=== PATIENT | male | born 1940 | race Caucasian/White ===

== ENCOUNTER 2020-09-28 08:47 | Inpatient (IN) | payer MEDICARE ==
[~2020-09-28] VITALS: Ht 188 cm; Wt 92.0 kg
[2020-09-28] MEDS ORDERED: ALPRAZolam 0.25 MG (XANAX) TAB PO PRN (09:45)
[2020-09-28] MEDS ORDERED: ONDANSETRON 4 MG (ZOFRAN) ORAL DISSOLVE TAB PO PRN (09:45)
[2020-09-28] MEDS ORDERED: LOPERAMIDE 2 MG (IMODIUM) TABLET PO PRN (09:45)
[2020-09-28] MEDS ORDERED: guaiFENesin/CODEINE (ROBITUSSIN AC) 10ML UDC PO PRN (09:45)
[2020-09-28] MEDS ORDERED: LACTULOSE SYRUP 10GM/15ML (ENULOSE) 30ML UDC PO PRN (09:45)
[2020-09-28] MEDS ORDERED: FLEET ENEMA ADULT 1 EA BTL PR PRN (09:45)
[2020-09-28] MEDS ORDERED: ACETAMINOPHEN 500 MG TAB (TYLENOL) PO PRN (09:45)
[2020-09-28] MEDS ORDERED: BISACODYL 10 MG SUPP (DULCOLAX) PR PRN (09:45)
[2020-09-28] MEDS ORDERED: MELATONIN 3 MG TABLET PO PRN (09:45)
[2020-09-28] MEDS ORDERED: DOCUSATE SODIUM 100 MG (COLACE) CAP PO PRN (09:45)
[2020-09-28] MEDS ORDERED: diphenhydrAMINE 25 MG TAB (BENADRYL) PO PRN (09:45)
[2020-09-28] MEDS ORDERED: CALCIUM CARBONATE 500 MG (TUMS) TAB.CHEW PO PRN (09:45)
--- NOTE | 2020-09-28 11:25 | NUR ---
SHELLEY ARRIETA admitted to room 222-1, with an admitting diagnosis of CRITICAL ILLNESS MYOPATHY, on 09/28/20 from [facility] via EMS TRANSPORT, accompanied by EMS STAFF.SHELLEY ARRIETA introduced to surroundings, call light, bed controls, phone, TV, temperature control, lights, meal times, smoking policy, visitor policy, side rail policy, bathrooms and showers. Patient Rights given to patient in the handbook.SHELLEY ARRIETA verbalizes understanding that [facility] is not responsible for the loss or damage to any personal effects or valuables that are kept in the patients posession during their hospitalization. The following Patient Care Plans were discussed with the PATIENT: Discharge Planning, FALLS,AND IMPAIRED MOBILITY. SHELLEY ARRIETA verbalizes understanding of Interdisciplinary Patient Education. Patient and/or family were informed about the Rapid Response Team and its purpose. Patient received Patient Rights Booklet, which includes Privacy Act Statement and Data Collection Information Summary.
[2020-09-28] MEDS ORDERED: ALB0.5V INH (12:12)
[2020-09-28] MEDS ORDERED: ALPR0.25 PO (12:12)
[2020-09-28] MEDS ORDERED: DEXT50DI2 IV (12:12)
[2020-09-28] MEDS ORDERED: SALI473M2 MM (12:12)
[2020-09-28] MEDS ORDERED: IPRA3AMP31 IH ×2 (12:12)
[2020-09-28] MEDS ORDERED: INSU100V39 SQ (12:12)
[2020-09-28] MEDS ORDERED: FLUT1AER IH (12:12)
[2020-09-28] MEDS ORDERED: PANT40TA2 PO (12:12)
[2020-09-28] MEDS ORDERED: UBID400C6 PO (12:12)
[2020-09-28] MEDS ORDERED: ACET-2650 PO (12:12)
[2020-09-28] MEDS ORDERED: WRF1T PO (12:12)
[2020-09-28] MEDS ORDERED: ONDA2VIA2 IV (12:12)
[2020-09-28] MEDS ORDERED: METH40VI2 IV (12:12)
[2020-09-28] MEDS ORDERED: FOLIC ACID PO (12:12)
[2020-09-28] MEDS ORDERED: SILD20TA PO (12:12)
[2020-09-28] MEDS ORDERED: ACET600C PO (12:12)
[2020-09-28] MEDS ORDERED: FURO10VI IV (12:12)
[2020-09-28] MEDS ORDERED: NYST1000 PO (12:12)
[2020-09-28] MEDS ORDERED: MULT-166 PO (12:12)
[2020-09-28] MEDS ORDERED: AMIO200T6 PO (12:12)
[2020-09-28] MEDS ORDERED: FLUT9.9S NS (12:12)
[2020-09-28] MEDS ORDERED: INSU100V6 SQ (12:12)
[2020-09-28 12:34] VITALS: BP 124/61
--- NOTE | 2020-09-28 13:12 | Occupational Therapy Eval ---
ALEXUS PACHECO OT 09/28/20 1312: OT Evaluation-General/PLF Medical Diagnosis Admission Date Sep 28, 2020 at 11:25 Medical Diagnosis: critical illness myopathy Onset Date: Aug 09, 2020 Therapy Diagnosis Therapy Diagnosis: weakness, decreased ADL status, debility Precautions Precautions/Isolations: Fall Prevention, Standard Precautions, Pressure Ulcer Referral Physician: Ana Mancuso Reason: Evaluation/Treatment Medical History Pertinent Medical History: Atrial Fib, DM, GERD, PVD Additional Medical History CKD II, hypoxia Current History Pt SOB, generalized weakness, occasional dizziness for ~2-3 weeks, transferred to [facility] in [place] on 08/20. 08/23 intubated, self extubated, 08/24 reintubated, 08/26 weaned from vent. 09/28/2020 Transferred [facility] for skilled therapies and continued medication management Reviewed History: Yes Social History Home: Multilevel Current Living Status: Alone Entry Into Home: Stairs With Railing Steps Into Home: 6 ADL-Prior Level of Function SCALE: Activities may be completed with or without assistive devices. 8-Azzimsafdx-qxwbrll completes the activity by him/herself with no assistance from a helper. 5-Set-up or Clean-up Assistance-helper sets up or cleans up; patient completes activity. [place] assists only prior to or following the activity. 4-Supervision or Touching Assistance-helper provides verbal cues and/or touching/steadying and/or contact guard assistance as patient completes activity. Assistance may be provided throughout the activity or intermittently. 3-Partial/Moderate Assistance-helper does LESS THAN HALF the effort. [place] lifts, holds or supports trunk or limbs, but provides less than half the effort. 2-Substantial/Maximal Assistance-helper does MORE THAN HALF the effort. [place] lifts or holds trunk or limbs and provides more than half the effort. 5-Teartkqow-lwxgnt does ALL the effort. Patient does none of the effort to complete the activity. Or, the assistance of 2 or more helpers is required for the patient to complete the activity. If activity was not attempted, code reason: 7-Patient Refused. 9-Not Applicable-not attempted and the patient did not perform the activity before the current illness, exacerbation or injury. 10-Not Attempted due to Environmental Limitations-(lack of equipment, weather restraints, etc.). 88-Not Attempted due to Medical Conditions or Safety Concerns. ADL PLOF Comments Pt indicates he lives in a 2 story house, but everything he needs to access is located on the 1st floor, including kitchen, bathroom, bedroom. Pt independent with all ADLS and functional mobility at [facility], no AD/AE. Pt able to manage his own finances, housework, laundry, meal prep, and grocery shopping. Pt's daughter and grandson live in [place] and he plans to go stay with his daughter at discharge so he can have assistance if needed. Self Care: Independent Functional Cognition: Independent DME/Equipment: Grab Bars, Tub/Shower Drive Self: Yes OT Current Status Subjective Pt laying in bed, agreeable to OT evaluation and tx. Pt denies pain. Mental Status/Objective Patient Orientation: Person, Place, Time, Situation Attachments: Oxygen (5L) Current Glasses/Contacts: Yes Hearing Aids: No Dentures/Partials: Yes Hand Dominance: Right Upper Extremity ROM WFL Upper Extremity Coordination WFL Upper Extremity Sensation WFL, pt denies tingling/numbness Upper Extremity Strength grossly 3/5 ADL-Treatment Eating (QC): 6 (Pt indicates independent with feeding. No difficulty with lunch, able to cut his food, use utensils, and bring food/drink to mouth.) Oral Hygiene (QC): 5 (Based on clinical judgement pt would require set up assistance with task) Shower/Bathe Self (QC): 1 (Based on clicial judgement, pt would be dependent with task due to assist of 2 person) Upper Body Dressing (QC): 7 Lower Body Dressing (QC): 1 (Based on clician judgement, pt would require total assist with task due to assist of 2 person) On/Off Footwear (QC): 1 (Total assist to don/doff footwear) Toileting Hygiene (QC): 1 (Pt able to roll side to side in bed with min A, OT performed hygiene and changed brief) Other Treatments [id number] OT evaluation: OT educated pt on purpose and benefits of OT, he verbalized understanding. Pt provided information about PLOF and home set up, and participated in UE screen. OT educated pt on rehab expectations [id number] OT/PT cotreat: OT/PT cotreat due to skill of 2 clinicians required which a rehabilitation tech could not perform due to pt's limitations in strength, endurance, and due to pt's poor functional mobility. OT focused on UE placement, cues for sequencing and safety, and assistance with transfers, while PT focused on LE placement, gross overall movements and bed mobility. Pt transferred supine to sit EOB, assistance with legs and trunk. Pt able to sit EOB using UEs for support x10 mins, pt indicates he is unable to lift his arms off of the bed and into the air at this time. Pt transferred supine, assistance with LEs and trunk. Post tx, pt laying in bed, call light in reach and all needs met. [id number] OT/PT cotreat due to skill of 2 clinicians required which a rehabilitation tech could not perform due to pt's limitation in functional mobility and strength. OT focused on UE Placement, ADLS, cues for sequencing and safety while PT focused on LE placement, gross overall movements, and bed mobility. Pt transferred supine to sit EOB, assist with LEs and trunk. Pt sat EOB, then attempted to stand with max A x2, pt able to clear buttocks off of bed but unable to fully stand. Pt returned to sitting EOB. Sit to stand lift attempted with pt, but pt indicates difficulty breathing and tightness in chest. Pt returned to bed and nursing staff informed to use xu lift for transfers. Pt rolled side to side for xu sling placement, min A with rolls. Pt lifted off of the bed with the xu, but xu indicated low battery due to not being plugged in, pt returned to bed. Pt rolled side to side to remove xu sling and to change soiled brief. OT dependently donned TEDhose and gripper socks. Post tx, pt laying in bed sidelying towards R side, call light in reach and all needs met. Education OT Patient Education: Correct positioning, Energy conservation, Modified ADL techniques, Progress toward Goal/Update tx plan, Purpose of tx/functional activities, Rehab process, Transfer techniques Teaching Recipient: Patient Teaching Methods: Discussion Response to Teaching: Verbalize Understanding OT Short Term Goals Short Term Goals Time Frame: Oct 10, 2020 Toileting hygiene: 2 Shower/bathe self: 2 Lower body dressin Putting on/taking off footwear: 2 OT Halfway Goals Halfway Goals Time Frame: Oct 21, 2020 Eating (QC): 6 Oral Hygiene (QC): 6 Toileting Hygiene (QC): 4 Shower/Bathe Self (QC): 4 Upper Body Dressing (QC): 5 Lower Body Dressing (QC): 4 On/Off Footwear (QC): 4 1=Demonstrate adherence to instructed precautions during ADL tasks. 2=Patient will verbalize/demonstrate understanding of assistive devices/modifications for ADL. 3=Patient will improve strength/tolerance for activity to enable patient to perform ADL's. OT Education/Plan Problem List/Assessment Assessment: Decreased Activ Tolerance, Decreased UE Strength, Dependent Transfers, Impaired Bed Mobility, Impaired Funct Balance, Impaired I ADL's, Impaired Self-Care Skills Discharge Recommendations Plan/Recommendations: Continue POC Treatment Plan/Plan of Care Treatment,Training & Education: Yes Patient would benefit from OT for education, treatment and training to promote independence in ADL's, mobility, safety and/or upper extremity function for ADL's. Plan of Care: ADL Retraining, Functional Mobility, Group Exercise/Act as Ind, UE Funct Exercise/Act Treatment Duration: Oct 21, 2020 Frequency: At least 5 of 7 days/Wk (IRF) Estimated Hrs Per Day: 1.5 hours per day Agreement: Yes Rehab Potential: Fair Time/GCodes Start Time: 11:25 ([id number]) Stop Time: 14:10 ([id number]) Billed Treatment Time [id number] OT evaluation (15'), [id number] OT/PT cotreat (15'), [id number] OT/PT cotreat (50') 5989-2752 1, EVM (15'), FA (15') 5378-4816 1, FA 3 (50') SAEID JONES DO 09/28/20 1949: ALEXUS PACHECO OT Sep 28, 2020 13:12 SAEID JONES DO Sep 28, 2020 19:49
--- NOTE | 2020-09-28 13:22 | Physical Therapy Evaluation ---
PT Evaluation-General Medical Diagnosis Admission Date Sep 28, 2020 at 11:25 Medical Diagnosis: critical illness myopathy Onset Date: Aug 09, 2020 Therapy Diagnosis Therapy Diagnosis: impaired mobility, strength, endurance Precautions Precautions/Isolations: Fall Prevention, Standard Precautions, Pressure Ulcer Referral Physician: Marissa Perez DO Reason for Referral: Evaluation/Treatment Medical History Pertinent Medical History: Atrial Fib, DM, GERD, PVD Additional Medical History CKD II, hypoxia Current History Pt SOB, generalized weakness, occasional dizziness for ~2-3 weeks, transferred to [facility] in [place] on 08/20. 08/23 intubated, self extubated, 08/24 reintubated, 08/26 weaned from vent. 09/28/2020 Transferred to [facility] from [facility] for skilled therapies and continued medication management Reviewed History: Yes Social History Home: Multilevel Current Living Status: Alone Entry Into Home: Stairs With Railing PT Steps Into Home: 6 Prior Prior Level of Function SCALE: Activities may be completed with or without assistive devices. 0-Oiivobkujo-brzpobj completes the activity by him/herself with no assistance from a helper. 5-Set-up or Clean-up Assistance-helper sets up or cleans up; patient completes activity. [place] assists only prior to or following the activity. 4-Supervision or Touching Assistance-helper provides verbal cues and/or touching/steadying and/or contact guard assistance as patient completes activity. Assistance may be provided throughout the activity or intermittently. 3-Partial/Moderate Assistance-helper does LESS THAN HALF the effort. [place] lifts, holds or supports trunk or limbs, but provides less than half the effort. 2-Substantial/Maximal Assistance-helper does MORE THAN HALF the effort. [place] lifts or holds trunk or limbs and provides more than half the effort. 0-Bnnzmtpcq-fmwmcp does ALL the effort. Patient does none of the effort to complete the activity. Or, the assistance of 2 or more helpers is required for the patient to complete the activity. If activity was not attempted, code reason: 7-Patient Refused. 9-Not Applicable-not attempted and the patient did not perform the activity before the current illness, exacerbation or injury. 10-Not Attempted due to Environmental Limitations-(lack of equipment, weather restraints, etc.). 88-Not Attempted due to Medical Conditions or Safety Concerns. Bed Mobility: 6 Transfers (B,C,W/C): 6 Gait: 6 Stairs: 6 Indoor Mobility (Ambulation): Independent Stairs: Independent PT Evaluation-Current Subjective Patient in bed pre tx, agrees to PT, has no complaints of pain at rest. Will be co-treating with OT due to poor patient mobility, strength, endurance, poor sitting and standing balance, the need to coordinate UE and LE during activity. Patient states he was using a xu for transfers at previous facility. Pt/Family Goals "to get stronger" Objective Patient Orientation: Person, Place, Situation Attachments: Oxygen ROM/Strength ROM Lower Extremities WNL Strength Lower Extremities RLE (hip flexion 3/5, knee flexion 3/5, knee extension 3/5, dorsiflexion 2/5), LLE (hip flexion 3/5, knee flexion 3/5, knee extension 3/5, dorsiflexion 2/5) Sensory Hearing: Functional Sensation Right Lower Extremit: Intact Sensation Left Lower Extremity: Intact Transfers Roll Left & Right (QC): 3 Sit to Lying (QC): 3 Lying to Sitting/Side of Bed(Q: 3 Sit to Stand (QC): 1 Chair/Dmj-af-Nzwtb Xfer(QC): 1 Toilet Transfer (QC): 1 Car Transfer (QC): 1 Patient requires min assist for rolling and mod assist for supine <-> sit. Patient is able to sit on the side of the bed and perform a couple of exercises, able to sit for about 10 min before needing to lay back down. Patient is dependent for transfers, uses a xu lift. Gait Does the Patient Walk?: No and Walking Goal IS indicated Mode of Locomotion: Wheelchair Anticipated Mode of Locomotion: Both Walk 10 feet (QC): 3 Walk 50 ft with 2 Turns(QC): 88 Walk 150 ft (QC): 88 Walking 10ft/uneven surface-QC: 88 Wheelchair Training Does the Pt Use a Wheelchair?: Yes Wheel 50 ft with 2 turns (QC): 1 Wheel 150 ft (QC): 1 Type of Wheelchair: Manual Stairs 1 Step (curb) (QC): 88 4 Steps (QC): 88 12 Steps (QC): 88 Balance Sitting Static: Fair Sitting Dynamic: Fair Standing Static: Poor Standing Dynamic: Poor Picking up an Object (QC): 88 Treatment seated exercises BLE x10 (LAQ, AP) Assessment/Needs Patient has good ankle ROM but almost has dropfoot. He has a wound on his bottom, nurse looked at it and put a cream on it and we put a brief on patient. Patient in bed post tx with nurse call, phone, tray, all needs met, laying on right side with pillow support for pressure relief on bottom. Rehab Potential: Fair PT Short Term Goals Short Term Goals Time Frame: Oct 05, 2020 Roll Left & Right: 4 Sit to lyin Lying to sitting on side of be: 3 Sit to stand: 2 Chair/vid-mh-thsna transfer: 2 PT Judicial Reporter Goals Judicial Reporter Goals PT Judicial Reporter Goals Time Frame: Oct 19, 2020 Roll Left & Right (QC): 6 Sit to Lying (QC): 6 Lying-Sitting on Side/Bed(QC): 6 Sit to Stand (QC): 3 Chair/Juk-yz-Yvhdm Xfer(QC): 3 Toilet Transfer (QC): 3 Car Transfer (QC): 1 Does the Patient Walk: Yes Walk 10 feet (QC): 3 Walk 50ft with 2 Turns (QC): 88 Walk 150 ft (QC): 88 Walking 10ft on Uneven Surface: 88 1 Step (curb) (QC): 88 4 Steps (QC): 88 12 Steps (QC): 88 Picking up an Object (QC): 88 Wheel 50 feet with 2 turns (QC: 4 Wheel 150 feet: 4 PT Plan Problem List Problem List: Activity Tolerance, Functional Strength, Safety, Balance, Gait, Transfer, Bed Mobility, ROM Treatment/Plan Treatment Plan: Continue Plan of Care Treatment Plan: Bed Mobility, Education, Functional Activity [place], Functional Strength, Group Therapy, Gait, Safety, Therapeutic Exercise, Transfers Treatment Duration: Oct 19, 2020 Frequency: At least 5 of 7 days/Wk (IRF) Estimated Hrs Per Day: 1.5 hours per day Patient and/or Family Agrees t: Yes Safety Risks/Education Patient Education: Correct Positioning, Safety Issues Teaching Recipient: Patient Teaching Methods: Demonstration, Discussion Response to Teaching: Reinforcement Needed Discharge Recommendations Plan Patient will perform bed mobility and transfer training, balance and endurance training, funcitonal strengthening, gait training, and education, to improve functional mobility and independence at home. Therapy Discharge Recommendati: Scheduled Assistance, Home & Family Time/GCodes Time In: 1140 Time Out: 1205 Total Billed Treatment Time: 25 Total Billed Treatment 1 visit EVM 10' FA 15' PT eval from 5411-9098, co-treat from 3501-3744. PT worked on bed mobility and transfers, OT assist with mobility, UE positioning and safety, ed[place] juarez. CLAYTON GARCIA PT Sep 28, 2020 13:22
--- NOTE | 2020-09-28 13:57 | NUR ---
MED REC HAS BEEN ENTERED USING THE DISCHARGE ORDERS FROM [facility]. THE DIRECTIONS ON SRAVANTHI SAY "SYN"- I CALLED [facility] FOR CLARIFICATION AND THE NURSE TOLD ME THAT ACCORDING TO THE RECORDS THERE THE FREQUENCY IS SCHEDULED FOR 0700. AFTER MEDICATIONS ARE CONTINUED I WILL SPEAK WITH THE PT AND MAKE ANY CHANGES TO THE NOTES/MED REC IF NEEDED Addendum: 10/03/20 at 1522 by CECILY MATA CPhT SPOKE WITH THE PT- HE WAS UNSURE OF HIS MEDICATIONS AND WANTED ME TO GET A MEDICATION LIST FROM DR. BROWN AT [facility]. I REQUESTED A MED LIST FROM THE PCP BUT HAVE NO RECEIVED AT THIS TIME Addendum: 10/05/20 at 1030 by CECILY MATA CPhT I SPOKE WITH SHELLEY'S DAUGHTER(ALLA) AND SHE WAS ABLE TO LIST THE MEDICATIONS THE PT TAKES. THE FOLLOWING MEDS WERE REMOVED DUE TO PT NOT TAKING PRIOR TO [place]: ACETYLCYSTEINE 600MG ALBUTEROL 2.5MG/0.5ML SOLUTION ALPRAZOLAM 0.25MG DEXTROSE SYRINGE FLONASE BREO ELLIPTA 100/25 INSULIN GLARGINE INSULIN LISPRO IPRATROPIUM/ALBUTEROL NEBULIZER SOLUTION (SCHEDULED AND PRN) SOLU-MEDROL NYSTATIN SOLUTION ONDANSETRON PANTOPRAZOLE 40MG BIOTENE SILDENAFIL 20MG COQ10 CHANGES THAT WERE MADE: FUROSEMIDE WAS SWITCHED FROM IV TO FUROSEMIDE 40MG PO AMIODARONE 200MG-I REMOVED THE NOTE ON THE MED REC OF "HOLD FOR HR LESS THEN 55" AND ACCORDING TO ALLA THE DIRECTIONS ON THE BOTTLE SHOW 1 TAB BID HOWEVER SHE IS CONCERNED THAT HE IS NOT TAKING IT PRESCRIBED. MEDICATIONS THAT HAVE BEEN ADDED TO THE MED REC: POTASSIUM ER 10MEQ ATORVASTATIN 40MG ON THE DISCHARGE ORDERS FROM [facility] IT HAD POTASSIUM LISTED BUT IT HAD "NO" WRITTEN BESIDE IT SO IT WOULD NOT BE CONTINUED. ATORVASTATIN 40MG IS NOT LISTED ANYWHERE ON THE DISCHARGE ORDERS
[2020-09-28] MEDS ORDERED: ENOXAPARIN 40 MG/0.4 ML (LOVENOX) SYR SC SCH (15:00)
--- NOTE | 2020-09-28 15:09 | PM&R Post Admission Assessment ---
PM&R HP Date of Visit: Sep 28, 2020 Time of Visit: 11:30 History of Present Illness CC: COPD myopathy HPI: This is an 80yoWM who presents to the IRF after a lengthy and convoluted hospital course which started at [facility] in [place], [place] who complains of SOB, generalized weakness, occasional dizziness for ~2-3 weeks, transferred to [facility] in [place] on 08/20. 08/23 intubated, self extubated, 08/24 reintubated, 08/26 weaned from vent. 09/28/2020 Transferred to [facility] ARU from OSH for skilled therapies and continued medication management. Patient had multiple COVID tests and thet were negative but he appears to have some sort of viral PNA with persistence of infiltrates on CXR requiring IV steroids and IV Lasix. Dr Gamble and Dr Alanis have been consulted. ECHO and CXR ordered. CXR appears to have infiltrates so will obtain sepsis w/u. Patient unable to answer my questions due to controlled dyspnea without distress and fatigue. Past Npdxcda-Hbziah-Enyhlj Hx Past Med/Social Hx: Reviewed Nursing Past Med/Soc Hx, Reviewed and Corrections made Patient Social History Marrital Status: Employed/Student: retired Smoking Status: Unknown if Ever Smoked Recent Foreign Travel: No Contact w/other who traveled: No Recent Infectious Disease Expo: No Past Medical History Respiratory: COPD, Pneumonia Cardiac: Atrial Fibrillation, Chronic Edema/Swelling Gastrointestinal: Gastroesophageal Reflux Endocrine: Diabetes, Insulin dep Prior Level of Function Bed Mobility: 6 Transfers: 6 Gait: 6 Stairs: 6 Indoor Mobility (Ambulation): Independent Stairs: Independent Self Care: Independent Functional Cognition: Independent Drive Self: Yes Current Level of Fuctioning Roll Left to Right: 3 Sit to Lyin Lying to Sitting/Side of Bed: 3 Sit to Stand: 1 Chair/Heu-qj-Trdmt Xfer: 1 Car Transfer: 1 Does the Patient Walk: No and Walking Goal IS indicated Mode of Locomotion: Wheelchair Anticipated Mode of Locomotion: Both Walk 10 feet: 3 Walk 50 ft with 2 Turns: 88 Walk 150 ft: 88 Walking 10ft on uneven surface: 88 Does the Pt Use a Wheelchair: Yes Wheel 50 ft with 2 turns: 1 Wheel 150 ft: 1 Type of Wheelchair: Manual 1 Step (curb): 88 4 Steps: 88 12 Steps: 88 Picking up an Object: 88 Eatin (Pt indicates independent with feeding. No difficulty with lunch, able to cut his food, use utensils, and bring food/drink to mouth.) Oral Hygiene: 5 (Based on clinical judgement pt would require set up assistance with task) Shower/Bathe Self: 1 (Based on clicial judgement, pt would be dependent with task due to assist of 2 person) Upper Body Dressin Lower Body Dressin (Based on clician judgement, pt would require total assist with task due to assist of 2 person) On/Off Footwear: 1 (Total assist to don/doff footwear) Toileting Hygiene: 1 (Pt able to roll side to side in bed with min A, OT performed hygiene and changed brief) PM&R Allergy/Meds/Data Review Allergies Coded Allergies: No Allergy Information Available (Unverified , 09/28/20) Home Medications Scheduled Acetylcysteine (Nac), 1,200 MG PO BID, (Reported) Alprazolam (Xanax), 0.25 MG PO HS, (Reported) Amiodarone HCl (Amiodarone HCl), 200 MG PO BID, (Reported) Fluticasone Propionate (Flonase Allergy Relief), 1 SPRAY NS BID, (Reported) Fluticasone/Vilanterol (Breo Ellipta 100-25 Mcg INH), 1 EACH IH DAILY, (Reported) Furosemide (Furosemide), 40 MG IV BID, (Reported) Insulin Glargine,Hum.rec.anlog (Lantus), 15 UNIT SQ 0700, (Reported) Insulin Lispro (Insulin Lispro), UNIT SQ ACHS, (Reported) Ipratropium/Albuterol Sulfate (Iprat-Albut 0.5-3(2.5) mg/3 ml), 3 ML IH 0700,1100,1500,1900, (Reported) Methylprednisolone Sod Succ/Pf (Solu-Medrol 40 mg Vial), 40 MG IV DAILY, (Reported) Multivitamin with Minerals (Multivitamins with Minerals), 1 EACH PO DAILY, (Reported) Nystatin (Nystatin), 5 ML PO QID, (Reported) Pantoprazole Sodium (Protonix), 40 MG PO DAILY, (Reported) Saliva Substitution Combo No.9 (Biotene), 10 ML MM TID, (Reported) Sildenafil Citrate (Revatio), 20 MG PO TID, (Reported) Ubidecarenone (Co Q-10), 400 MG PO DAILY, (Reported) Warfarin Sodium (Warfarin Sodium), 1 MG PO 1700, (Reported) [Folic Acid], 1 MG PO DAILY, (Reported) Scheduled PRN Acetaminophen (Tylenol Arthritis), 650 MG PO Q6H PRN for PAIN-MILD (1-4) OR TEMPATURE, (Reported) Albuterol Sulfate (Albuterol Sulfate), 2.5 MG INH Q4H PRN for SHORTNESS OF BREATH, (Reported) Dextrose 50 % in Water (Dextrose 50%-Water Syringe), 50 ML IV PRN PRN for GLUCOSE LESS THEN 50, (Reported) Ipratropium/Albuterol Sulfate (Iprat-Albut 0.5-3(2.5) mg/3 ml), 3 ML IH Q4H PRN for SHORTNESS OF BREATH, (Reported) Ipratropium/Albuterol Sulfate (Iprat-Albut 0.5-3(2.5) mg/3 ml), 3 ML IH Q4H PRN for SHORTNESS OF BREATH, (Reported) Ondansetron HCl (Ondansetron HCl), 4 MG IV Q4H PRN for NAUSEA/VOMITING-1ST LINE, (Reported) Current Medications Current Medications Reviewed Review of Systems Constitutional: see HPI, malaise, weakness Respiratory: dyspnea on exertion Physical Exam Physical Exam Vital Signs Vital Signs - First Documented 09/28/20 12:34 Temp 36.0 Pulse 80 Resp 18 B/P (MAP) 124/61 Pulse Ox 94 O2 Delivery Nasal Cannula O2 Flow Rate 5.00 Capillary Refill : Height, Weight, BMI Height: '" Weight: lbs. oz. kg; 26.02 BMI Method: General Appearance: No Apparent Distress, WD/WN, Chronically ill Eyes: Bilateral Eye Normal Inspection, Bilateral Eye PERRL HEENT: PERRL/EOMI, Normal ENT Inspection, Pharynx Normal Neck: Full Range of Motion, Normal Inspection, Non Tender, Supple, Carotid Bruit Respiratory: Chest Non Tender, No Accessory Muscle Use, No Respiratory Distress, Decreased Breath Sounds Cardiovascular: Regular Rate, Rhythm, No Edema, No Gallop, No JVD, No Murmur, Normal Peripheral Pulses Gastrointestinal: Normal Bowel Sounds, No Organomegaly, No Pulsatile Mass, Non Tender, Soft Back: Normal Inspection, No CVA Tenderness, No Vertebral Tenderness Extremity: Normal Capillary Refill, Normal Inspection, Normal Range of Motion, Non Tender, No Calf Tenderness, No Pedal Edema Neurologic/Psychiatric: Alert, Oriented x3, Normal Mood/Affect, 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 Norm as Tested, Abnormal Gait, Depressed Affect, Motor Weakness (severe 3/5 all extremities) Skin: Normal Color, Warm/Dry Lymphatic: No Adenopathy PM&R Medical Assessment & Plan REHAB/MEDICAL ASSESSMENT AND PLAN: 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 The comorbidities that impact the patients function and/or functional outcome by: advanced age, severe COPD, severe loss of reserve, cardiac abnormalities, severe fatigue, high risk for respiratory failure REHAB PLAN: The patient is being admitted to our comprehensive inpatient rehabilitation facility and can tolerate the intensity of service consisting of at least: 180 minutes of therapy a day, 5 out of 7 days a week Rehab treatment will consist of: PT OT will focus on regaining function with ADL's and ambulation and weaning O2 and ultimately increasing ability to return home to live independently The patient/family has a good understanding of our discharge process and will benefit from an interdisciplinary inpatient rehabilitation program. The patient has potential to make improvement and is in need of at least two of the following multidisciplinary therapies including but not limited to physical, occupational, speech, and prosthetics and orthotics. Additionally the patient will need services from respiratory, nutritional services, wound care, psychology, etc. (Customize this to each patient). Given the patients complex condition and risk of further medical complications, rehabilitation services cannot be safely or effectively provided at a lower level of care such as a jail facility. BARRIERS TO DISCHARGE: Severe COPD ESTIMATED LOS: 14 days DISPOSITION: Home RELEVANT CHANGES SINCE PREADMISSION SCREENING: I have compared the patients medical and functional status at the time of the preadmission screening and there are: no changes PROGNOSIS: Guarded REHABILITATION GOALS: 1. PT OT will focus on regaining function with ADL's and ambulation and weaning O2 and ultimately increasing ability to return home to live independently All the above goals were reviewed with the patient and he/she is in agreement. By signing this document, I acknowledge that I have personally performed a full physical examination on this patient within 24 hours of admission to this inpatient rehabilitation facility and have determined the patient to be able to tolerate the above course of treatment at an intensive level for a reasonable period of time. I will be completing a detailed individualized Plan of Care for this patient by day #4 of the patients stay based upon the Preadmission Screen, the Post-Admission Evaluation, and the therapy evaluations. 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 (4) Diabetes mellitus ICD Codes: E11.9 - Type 2 diabetes mellitus without complications (5) COPD (chronic obstructive pulmonary disease) ICD Codes: J44.9 - Chronic obstructive pulmonary disease, unspecified (6) Hypoxemia ICD Codes: R09.02 - Hypoxemia (7) Volume overload ICD Codes: E87.70 - Fluid overload, unspecified (8) Thrush ICD Codes: B37.0 - Candidal stomatitis Assessment/Plan Assessment and Plan Assess & Plan/Chief Complaint Assessment: COPD myopathy Hypoxia Abnormal CXR Thrush Coumadin treatment Respiratory failure DM GERD PHTN Plan: Check INR IRF protocol Dr Alanis and Dr Gamble consulted SAEID JONES DO Sep 28, 2020 15:09
[2020-09-28] MEDS ORDERED: ONDANSETRON 4 MG/2 ML (SDV) Z0FRAN IV PRN (15:15)
[2020-09-28] MEDS ORDERED: RT-ALBUTEROL SULF 2.5 MG/3 ML PRE-MIX VIAL INH PRN (15:15)
[2020-09-28] MEDS ORDERED: NON-FORMULARY MEDICATION 1 EA EA (Ondansetron HCl 4 MG) IV PRN (15:15)
[2020-09-28] MEDS ORDERED: NON-FORMULARY MEDICATION 1 EA EA (Acetaminophen (Tylenol Arthritis) 650 MG) PO PRN (15:15)
[2020-09-28] MEDS ORDERED: DEXTROSE 50% 50 ML (IMS) SYR IV PRN (15:15)
[2020-09-28] MEDS ORDERED: RT-ALBUTEROL/IPRATROPIUM 3 ML (DUONEB) VIAL IH PRN ×2 (15:15)
--- NOTE | 2020-09-28 15:17 | Physical Therapy Daily Note ---
PT Daily Note-Current Subjective Pt laying in bed upon arrival. Pt agrees to PT/OT co-treat. OT/PT cotreat due to skill of 2 clinicians required which a test lab technician could not perform due to pt's limitations in strength, endurance, and due to pt's poor functional mobility. Pain Numeric Pain Scale: 5-Moderate Pain Location Body Site: Chest Pain Description: Ache Comment: Chest discomfort when sitting upright. Not rated though. Mental Status Patient Orientation: Person, Place, Situation Attachments: Oxygen Pt talks quietly due to extubation. Transfers SCALE: Activities may be completed with or without assistive devices. 5-Tbizgvrqxr-vwkpsva completes the activity by him/herself with no assistance from a helper. 5-Set-up or Clean-up Assistance-helper sets up or cleans up; patient completes activity. Felton assists only prior to or following the activity. 4-Supervision or Touching Assistance-helper provides verbal cues and/or touching/steadying and/or contact guard assistance as patient completes activity. Assistance may be provided throughout the activity or intermittently. 3-Partial/Moderate Assistance-helper does LESS THAN HALF the effort. Felton lifts, holds or supports trunk or limbs, but provides less than half the effort. 2-Substantial/Maximal Assistance-helper does MORE THAN HALF the effort. Felton lifts or holds trunk or limbs and provides more than half the effort. 7-Rqecqsapy-yoeqim does ALL the effort. Patient does none of the effort to complete the activity. Or, the assistance of 2 or more helpers is required for the patient to complete the activity. If activity was not attempted, code reason: 7-Patient Refused. 9-Not Applicable-not attempted and the patient did not perform the activity before the current illness, exacerbation or injury. 10-Not Attempted due to Environmental Limitations-(lack of equipment, weather restraints, etc.). 88-Not Attempted due to Medical Conditions or Safety Concerns. Roll Left & Right (QC): 4 Sit to Lying (QC): 1 Lying to Sitting/Side of Bed(Q: 1 Sit to Stand (QC): 1 Exercises Supine Ex: Ankle pumps, Quad Set, Heel Slides Supine Reps: 15 Treatments [id number] OT/PT cotreat due to skill of 2 clinicians required which a test lab technician could not perform due to pt's limitation in functional mobility and strength. OT focused on UE Placement, ADLS, cues for sequencing and safety while PT focused on LE placement, gross overall movements, and bed mobility. Pt transferred supine to sit EOB, assist with LEs and trunk. Pt sat EOB, then attempted to stand with max A x2, pt able to clear buttocks off of bed but unable to fully stand. Pt returned to sitting EOB. Sit to stand lift attempted with pt, but pt indicates difficulty breathing and tightness in chest. Pt returned to bed and nursing staff informed to use xu lift for transfers. Pt rolled side to side for xu sling placement, min A with rolls. Pt lifted off of the bed with the xu, but xu indicated low battery due to not being plugged in, pt returned to bed. Pt rolled side to side to remove xu sling and to change soiled brief. OT dependently donned TEDhose and gripper socks. Post tx, pt laying in bed sidelying towards R side, call light in reach and all needs met. Assessment Current Status: Fair Progress Pt is very weak but demonstrates willingness to work hard to progress for home. PT Short Term Goals Short Term Goals Time Frame: Oct 05, 2020 Roll Left & Right: 4 Sit to lyin Lying to sitting on side of be: 3 Sit to stand: 2 Chair/tow-mh-nhbcn transfer: 2 PT Penitentiary Goals Penitentiary Goals PT Tip Cementer Goals Time Frame: Oct 19, 2020 Roll Left & Right (QC): 6 Sit to Lying (QC): 6 Lying-Sitting on Side/Bed(QC): 6 Sit to Stand (QC): 3 Chair/Fci-mu-Lugwu Xfer(QC): 3 Toilet Transfer (QC): 3 Car Transfer (QC): 1 Does the Patient Walk: Yes Walk 10 feet (QC): 3 Walk 50ft with 2 Turns (QC): 88 Walk 150 ft (QC): 88 Walking 10ft on Uneven Surface: 88 1 Step (curb) (QC): 88 4 Steps (QC): 88 12 Steps (QC): 88 Picking up an Object (QC): 88 Wheel 50 feet with 2 turns (QC: 4 Wheel 150 feet: 4 PT Plan Problem List Problem List: Activity Tolerance, Functional Strength, Safety, Balance, Gait, Transfer, Bed Mobility Treatment/Plan Treatment Plan: Continue Plan of Care Treatment Plan: Bed Mobility, Education, Functional Activity Aston, Functional Strength, Group Therapy, Gait, Safety, Therapeutic Exercise, Transfers Treatment Duration: Oct 19, 2020 Frequency: At least 5 of 7 days/Wk (IRF) Estimated Hrs Per Day: 1.5 hours per day Patient and/or Family Agrees t: Yes Safety Risks/Education Patient Education: Transfer Techniques, Correct Positioning, Safety Issues Teaching Recipient: Patient Teaching Methods: Discussion Response to Teaching: Verbalize Understanding Time/GCodes Time In: 1320 Time Out: 1410 Total Billed Treatment Time: 50 Total Billed Treatment 1, EX (15m), & FA x2 (35m) LIDA BENDER CUST[employer]S CONSULTANT Sep 28, 2020 15:17
[2020-09-28] MEDS ORDERED: ACETAMINOPHEN 325 MG TABLET PO PRN (15:30)
--- NOTE | 2020-09-28 15:36 | ST Cognitive Linguistic Eval ---
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 Perez Medical History Pertinent Medical History: Atrial Fib, DM, GERD, PVD Reviewed History: Yes Social History Current Living Status: Alone Speech PLF-Current Status Prior Level of Function Patient lived at home alone where he was independent for his needs. Subjective Patient was pleasant and cooperative with the cognitive assessment. Language Eval: Auditory Comprehends Simple Yes/No Ques: Functional Indent/Objects Multiple Alfonso: Functional Ident/Pics in Multiple Alfonso: Functional Follows 1-Step Commands: Functional Follows Complex Directions: Functional Follows General Conversations: Functional Language Eval: Verbal Language Completes Spontaneous Greeting: Functional Produces Auto, Serial Info: Functional Imitates Simple Words/Phrases: Functional Word Finding: Functional Requests Basic Needs: Functional States Basic Personal Info: Functional Expresses Complex Ideas: Functional Objective Cognitive Domain Attention: WNL Memory: WNL Problem Solving: Functional Executive Functions: WNL Composite Severity Rating: WNL Clock Drawing Severity Rating: WNL Objective Formal/Standardized Tests [facility] Status ([facility]) Results 28/30, within normal range of function Oral Motor/Speech Production Within Normal Limits Impression Patient is a pleasant 80 y/o male who was admitted to the ARU due to generalized weakness. Patient was given the SLUMS at bedside with a score of 28/30 obtained. This is within normal limits of function. Patient does not require further ST services at this time. Speech Patient Assess Expression of Ideas/Wants: Expression (4) Understanding Verbal Content: Understands (4) Brief Interview-Mental Status: Yes Repetition of Three Words: Three (3) Temporal Orientation: Year: Correct (3) Temporal Orientation: Month: Accurate within 5 days(2) Temporal Orientation: Day: Correct (1) Recall : Wear to say "Sock": Yes, no cue required (2) Recall : Color: Yes, after cueing (1) Recall : Bed: Yes, no cue required (2) Memory/Recall Ability: Current season, That he or she is in a hsp/hsp unit Speech-Plan Patient/Family Goals Patient/Family Goals: Patient will discharge to his home or to live with his daughter, depending on his status at that time. Treatment Plan Speech Therapy Treatment Plan: Discontinue ST Treatment Duration: Sep 28, 2020 Frequency: 1 time per week Estimated Hrs Per Day: .5 hour per day Rehab Potential: Fair Barriers to Learning: None identified cognitively Pt/Family Agrees to Plan: Yes Safety Risks/Education Teaching Recipient: Patient Teaching Methods: Discussion Response to Teaching: Verbalize Understanding Education Topics Provided: Safety within his room and communication of wants/needs Time Speech Therapy Time In: 15:00 Speech Therapy Time Out: 15:30 Total Billed Time: 30 Billed Treatment Time 1, GAYLENDCOMP MAXI Oleary Sep 28, 2020 15:36
--- NOTE | 2020-09-28 16:44 | Diagnostic Imaging Report ---
INDICATION: Shortness of air. TECHNIQUE: Single view chest at 4:26 PM. CORRELATION STUDY: None. FINDINGS: Scattered bilateral pulmonary infiltrates are present. They may be slightly more pronounced at the mid and lower lung holguin, left greater than right. Heart size and mediastinal structures are somewhat obscured but the heart does appear to be enlarged. A component of vascular congestion would be difficult to exclude. IMPRESSION: 1. Bilateral pulmonary infiltrates, left greater the right, do suggest multilobe pneumonia. 2. Cardiac enlargement with likely some degree of vascular prominence. Dictated by: Dictated on workstation # [id number]
[2020-09-28] MEDS ORDERED: warFARin 1 MG (COUMADIN) TAB PO SCH (17:00)
[2020-09-28] MEDS ORDERED: FUROSEMIDE 40 MG/4 ML INJ (LASIX) IV SCH (17:00)
[2020-09-28] MEDS: inSUlin ASPART (NovoLOG) 1 UNIT/0.01 ML (CHARGE PER UNIT) SC SCH ×2 (17:02→21:48)
[2020-09-28 17:33] VITALS: BP 120/57
[2020-09-28] MEDS: NYSTATIN ORAL SUSP 5 ML UDC PO SCH ×2 (18:14→21:39)
[2020-09-28] MEDS ORDERED: RT-ALBUTEROL/IPRATROPIUM 3 ML (DUONEB) VIAL IH SCH (19:00)
--- NOTE | 2020-09-28 19:11 | NUR ---
Bedside report received from ZARIA DOBBINS, assume care of pt
[2020-09-28 20:54] LABS: BASOPHILS % (AUTO) 0 % (0-10); EOSINOPHILS % (AUTO) 0 % (0-10); HEMATOCRIT 29 % (40-54); LYMPHOCYTES # (AUTO) 0.5 10^3/uL (1.0-4.0); LYMPHOCYTES % (AUTO) 2 % (12-44); MEAN CORPUSCULAR HEMOGLOBIN 30 pg (25-34); MEAN CORPUSCULAR HGB CONC 31 g/dL (32-36); MEAN CORPUSCULAR VOLUME 97 fL (80-99); MEAN PLATELET VOLUME 11.2 fL (9.0-12.2); MONOCYTES # (AUTO) 0.6 10^3/uL (0.0-1.0); MONOCYTES % (AUTO) 2 % (0-12); NEUTROPHILS # (AUTO) 21.6 10^3/uL (1.8-7.8); NEUTROPHILS % (AUTO) 94 % (42-75); PLATELET COUNT 307 10^3/uL (130-400); WHITE BLOOD COUNT 23.1 10^3/uL (4.3-11.0)
[2020-09-28] MEDS ORDERED: ACETYLCYSTEINE 1200 MG PO SCH (21:00)
[2020-09-28] MEDS ORDERED: SILDENAFIL CITRATE 20 MG PO SCH (21:00)
[2020-09-28] MEDS ORDERED: NON-FORMULARY MEDICATION 1 EA EA (Fluticasone Propionate (Flonase Allergy Relief) 1 SPRAY) NS SCH (21:00)
[2020-09-28] MEDS ORDERED: SALIVA SUBSTITUTION COMBO NO 9 MM SCH (21:00)
[2020-09-28 21:10] VITALS: BP 156/65
--- NOTE | 2020-09-28 21:10 | NUR ---
fsbs 280, NovoLog 5 units given refused Colace, miralax, & Senokot, bed linen changed as pt incontinent whole bed wet.
[2020-09-28 21:12] LABS: ANISOCYTOSIS MODERATE; BAND NEUTROPHILS 0 %; BASOPHILS % (MANUAL) 0 %; EOSINOPHILS % (MANUAL) 0 %; HYPOCHROMASIA SLIGHT; LYMPHOCYTES % (MANUAL) 3 %; MONOCYTES % (MANUAL) 1 %; NEUTROPHILS % (MANUAL) 96 %; POIKILOCYTOSIS SLIGHT; ROULEAUX SLIGHT
--- NOTE | 2020-09-28 21:22 | NUR ---
had liq brown incontinent stool, cleaned & barrier cream applied
[2020-09-28 21:29] LABS: ALBUMIN 2.6 GM/DL (3.2-4.5); BILIRUBIN,TOTAL 0.5 MG/DL (0.1-1.0); CREATININE SERUM 1.52 MG/DL (0.60-1.30); TOTAL PROTEIN 5.3 GM/DL (6.4-8.2)
--- NOTE | 2020-09-28 21:30 | NUR ---
lab called with lactic acid 2.73
--- NOTE | 2020-09-28 21:32 | NUR ---
DR JONES notifed, orders received for NS at 80ml/hr, blood culturs x2, hold Lasix, meropenem 500mg iv q 6hrs, Vancomycin pharmacy to dose & CXR in AM
[2020-09-28] MEDS: aCETylcysteine 20% (MUCOMYST) 30ML SOLN VIAL PO SCH (21:38)
[2020-09-28] MEDS: SILDENAFIL 20 MG (REVATIO) TAB NON-FORMULARY PO SCH (21:38)
[2020-09-28] MEDS: SALIVA STIMULANT MOUTH SPRAY (BIOTENE) 1.5 OZ MM SCH (21:39)
[2020-09-28] MEDS: AMIODARONE 200 MG (CORDARONE) TAB PO SCH (21:39)
[2020-09-28] MEDS: ALPRAZolam 0.25 MG (XANAX) TAB PO SCH (21:40)
[2020-09-28] MEDS: FLUTICASONE NASAL SPRAY (FLONASE) 16 GM BTL NS SCH (21:40)
--- NOTE | 2020-09-28 21:40 | NUR ---
lab notified of blood cultures
[2020-09-28] MEDS ORDERED: NS IV 1000 ML 1,000 ML ONE (21:41)
[2020-09-28] MEDS ORDERED: VANCOMYCIN INJECTION 0.1 MG in NS (IVPB) 250 ML IV SCH (21:45)
[2020-09-28] MEDS: SENNA W/DOCUSATE (SENOKOT S) TABLET PO SCH (21:50)
[2020-09-28] MEDS: polyethylene glycoL POWDER 17 GM (MIRALAX) PACK PO SCH (21:50)
[2020-09-28] MEDS: DOCUSATE SODIUM 100 MG (COLACE) CAP PO SCH (21:50)
[2020-09-28] MEDS: NS IV 1000 ML 1,000 ML IV SCH (21:51)
--- NOTE | 2020-09-28 22:10 | NUR ---
notified of no pharmacy to dose vancomycin, orders received for Vancomycin 1 gram IV now
[2020-09-28] MEDS ORDERED: WATER (STERILE) FOR INJECTION 10 ML ONE (22:16)
[2020-09-28] MEDS ORDERED: MEROPENEM 500 MG VIAL (MERREM) IV ONE (22:17)
[2020-09-28] MEDS: MEROPENEM 500 MG in WATER (STERILE) FOR INJECTION 10 ML IV SCH (22:24)
[2020-09-28] MEDS ORDERED: VANCOMYCIN 1000 MG/VIAL ONE (22:27)
[2020-09-28] MEDS ORDERED: NS (IVPB) 250 ML ONE (22:27)
[2020-09-28] MEDS ORDERED: VANCOMYCIN INJECTION 1,000 MG in NS (IVPB) 250 ML IV SCH (23:00)
--- NOTE | 2020-09-28 23:00 | NUR ---
Waiting on lab to draw blood cultures to start antibiotics
--- NOTE | 2020-09-28 23:15 | NUR ---
lab able to draw blood cultures, antibiotics started
--- NOTE | 2020-09-28 23:39 | NUR ---
lactic acid 3.37
--- NOTE | 2020-09-28 23:42 | NUR ---
lactic acid called to , orders received no changes & no repeat labs until morning
[2020-09-29 05:01] LABS: BASOPHILS % (AUTO) 0 % (0-10); EOSINOPHILS % (AUTO) 0 % (0-10); HEMATOCRIT 25 % (40-54); HEMOGLOBIN 7.5 g/dL (13.3-17.7); LYMPHOCYTES # (AUTO) 0.9 10^3/uL (1.0-4.0); LYMPHOCYTES % (AUTO) 6 % (12-44); MEAN CORPUSCULAR HEMOGLOBIN 30 pg (25-34); MEAN CORPUSCULAR HGB CONC 30 g/dL (32-36); MEAN CORPUSCULAR VOLUME 97 fL (80-99); MEAN PLATELET VOLUME 11.1 fL (9.0-12.2); MONOCYTES # (AUTO) 0.8 10^3/uL (0.0-1.0); MONOCYTES % (AUTO) 5 % (0-12); NEUTROPHILS # (AUTO) 14.1 10^3/uL (1.8-7.8); NEUTROPHILS % (AUTO) 87 % (42-75); PLATELET COUNT 236 10^3/uL (130-400); WHITE BLOOD COUNT 16.2 10^3/uL (4.3-11.0)
[2020-09-29 05:02] VITALS: BP 119/56
[2020-09-29 05:26] LABS: ALBUMIN 2.2 GM/DL (3.2-4.5); POTASSIUM 4.3 MMOL/L (3.6-5.0)
[2020-09-29 05:27] LABS: CALCIUM 7.2 MG/DL (8.5-10.1)
[2020-09-29 05:29] LABS: TOTAL PROTEIN 4.3 GM/DL (6.4-8.2)
[2020-09-29 05:30] LABS: BILIRUBIN,TOTAL 0.4 MG/DL (0.1-1.0)
[2020-09-29 05:32] LABS: CREATININE SERUM 1.21 MG/DL (0.60-1.30)
[2020-09-29] MEDS: inSUlin ASPART (NovoLOG) 1 UNIT/0.01 ML (CHARGE PER UNIT) SC SCH ×4 (06:00→21:44)
[2020-09-29] MEDS: MEROPENEM 500 MG in WATER (STERILE) FOR INJECTION 10 ML IV SCH ×3 (06:59→20:14)
[2020-09-29] MEDS ORDERED: NON-FORMULARY MEDICATION 1 EA EA (Insulin Glargine,Hum.rec.anlog (Lantus) 15 UNIT) SQ SCH (07:00)
--- NOTE | 2020-09-29 07:36 | NUR ---
came by at 0615, orders received for albumen 25grams but unable to input orders due to [facility] down
[2020-09-29 07:40] LABS: INR 1.6 (0.8-1.4); PROTHROMBIN TIME PATIENT 19.3 SEC (12.2-14.7)
[2020-09-29 07:41] LABS: ANISOCYTOSIS MODERATE; ELLIPT/OVALOCYTES SLIGHT; LYMPHOCYTES % (MANUAL) 6 %; MICROCYTOSIS SLIGHT; MONOCYTES % (MANUAL) 4 %; NEUTROPHILS % (MANUAL) 90 %
[2020-09-29] MEDS ORDERED: ALBUMIN IV NR (07:45)
--- NOTE | 2020-09-29 07:51 | NUR ---
PTD VANCOMYCIN: 92 KG, SCr 1.21, CrCl 1.21, CrCl 45.1, BMI 26.0. DOSED PER [facility] FOR A 2 GRAM BOLUS/LOADING DOSE, BUT ONLY 1 GRAM ADMINISTERED PER [facility]. MAINT DOSE 15MG/KG x 92 KG = 1380MG ~ 1500MG Q24H (ROUNDED UP DUE TO PATIENT ONLY RECEIVING HALF OF THE INTENDED 2 GRAM LOADING DOSE, AND STARTED INFUSION EARLY/12 HOURS AFTER 1 GRAM LOADING DOSE). VANCOMYCIN TROUGH DUE 10/01 @ 1000. IF TROUGH >20, HOLD DOSE & NOTIFY PHARMACY FOR ADJUSTMENTS. Addendum: 09/29/20 at 1334 by JOSE HARRIS [facility] VANCOMYCIN TROUGH DUE 10/01 @ 1200 (DOSE HAD TO BE RETIMED DUE TO LOSS OF IV ACCESS)
[2020-09-29] MEDS: aCETylcysteine 20% (MUCOMYST) 30ML SOLN VIAL PO SCH ×2 (08:06→21:47)
[2020-09-29] MEDS: FLUTICASONE NASAL SPRAY (FLONASE) 16 GM BTL NS SCH ×2 (08:08→21:44)
[2020-09-29] MEDS: AMIODARONE 200 MG (CORDARONE) TAB PO SCH ×2 (08:08→21:45)
[2020-09-29] MEDS: NYSTATIN ORAL SUSP 5 ML UDC PO SCH ×4 (08:08→21:44)
[2020-09-29] MEDS: PANTOPRAZOLE 40 MG (PROTONIX) TAB PO SCH (08:08)
[2020-09-29] MEDS: MULTIVIT W/MINERALS TAB (THERAGRAN M) PO SCH (08:08)
[2020-09-29] MEDS: methylPREDNISolone 40 MG/ML (Solu-MEDROL) VIAL IV SCH (08:08)
[2020-09-29] MEDS: FOLIC ACID 1 MG TAB PO SCH (08:08)
[2020-09-29] MEDS: SALIVA STIMULANT MOUTH SPRAY (BIOTENE) 1.5 OZ MM SCH ×3 (08:08→21:56)
[2020-09-29] MEDS: SILDENAFIL 20 MG (REVATIO) TAB NON-FORMULARY PO SCH ×3 (08:08→21:47)
[2020-09-29] MEDS ORDERED: NON-FORMULARY MEDICATION 1 EA EA (Fluticasone/Vilanterol (Breo Ellipta 100-25 Mcg INH) 1 E IH SCH (09:00)
[2020-09-29] MEDS ORDERED: UBIDECARENONE 400 MG PO SCH (09:00)
[2020-09-29] MEDS ORDERED: NON-FORMULARY MEDICATION 1 EA EA ([Folic Acid] 1 MG) PO SCH (09:00)
--- NOTE | 2020-09-29 09:15 | NUR ---
Patient working with therapy. IV began leaking and became dislodged. Physician notified. Orders obtained for PICC line. PICC nurse notified of new order and need for IV access d/t elevated lactic acid.
[2020-09-29] MEDS: DOCUSATE SODIUM 100 MG (COLACE) CAP PO SCH ×2 (09:33→20:10)
[2020-09-29] MEDS: polyethylene glycoL POWDER 17 GM (MIRALAX) PACK PO SCH ×2 (09:34→20:10)
[2020-09-29] MEDS: SENNA W/DOCUSATE (SENOKOT S) TABLET PO SCH ×2 (09:34→20:10)
[2020-09-29] MEDS: ADVAIR HFA 115/21 MCG INHALER 8 GM IH SCH ×2 (10:08→19:17)
[2020-09-29] MEDS: RT-ALBUTEROL/IPRATROPIUM 3 ML (DUONEB) VIAL IH SCH ×3 (10:08→19:08)
--- NOTE | 2020-09-29 10:11 | Occupational Ther Daily Note ---
OT Current Status-Daily Note Subjective Pt laying in bed, agreeable to OT tx. Pt indicates he is anxious when he is sitting up or transferring between surfaces, nurse notified of pt's anxiousness. Mental Status/Objective Patient Orientation: Person, Place, Time, Situation Attachments: IV, Oxygen ADL-Treatment Therapy Code Descriptions/Definitions Functional [place] Measure: 0=Not Assessed/NA 4=Minimal Assistance 1=Total Assistance 5=Supervision or Setup 2=Maximal Assistance 6=Modified [place] 3=Moderate Assistance 7=Complete IndependenceSCALE: Activities may be completed with or without assistive devices. 3-Yzalhitfyb-zhnzvff completes the activity by him/herself with no assistance from a helper. 5-Set-up or Clean-up Assistance-helper sets up or cleans up; patient completes activity. [place] assists only prior to or following the activity. 4-Supervision or Touching Assistance-helper provides verbal cues and/or touching/steadying and/or contact guard assistance as patient completes activity. Assistance may be provided throughout the activity or intermittently. 3-Partial/Moderate Assistance-helper does LESS THAN HALF the effort. [place] lifts, holds or supports trunk or limbs, but provides less than half the effort. 2-Substantial/Maximal Assistance-helper does MORE THAN HALF the effort. [place] l ifts or holds trunk or limbs and provides more than half the effort. 5-Gqfgckudp-qqnusp does ALL the effort. Patient does none of the effort to complete the activity. Or, the assistance of 2 or more helpers is required for the patient to complete the activity. If activity was not attempted, code reason: 7-Patient Refused. 9-Not Applicable-not attempted and the patient did not perform the activity before the current illness, exacerbation or injury. 10-Not Attempted due to Environmental Limitations-(lack of equipment, weather restraints, etc.). 88-Not Attempted due to Medical Conditions or Safety Concerns. Oral Hygiene (QC): 5 (set up at bed level) Shower/Bathe Self (QC): 2 (Sponge bath max A, pt able to wash arms, chest/stomach, required assistance for thoroughness. OT washed all other parts.) Upper Body Dressing (QC): 3 ([place]) Lower Body Dressing (QC): 1 (pt rolled side to side with mod A, OT changed soiled brief for pt.) On/Off Footwear: 1 Toileting Hygiene (QC): 1 (Mod A rolling side to side in bed, OT performed hygiene and changed soiled brief.) Other Treatment [id number] OT tx: Pt completed sponge bath at bed level, pt's brief soiled requiring change. Pt able to roll side to side in bed with mod A, OT dependently changed brief and performed hygiene. Per nursing instruction, barrier cream placed on wound at buttocks, and inner thighs. Pt then able to brush teeth with set up assist at bed level. [id number] OT/PT cotreat due to skill of 2 clinicians required which a director of rehabilitation and wellness could not perform in order to coordinate UE/LEs and due to pt's limitations in functional mobility, endurance, and strength. OT focused on UE placement, cues for sequencing and safety, and ADLs, while PT focused on LE placement, gross overall movements, and transfers. Pt transferred supine to sit EOB, assist with LEs and trunk. Pt required rest break at EOB prior to transferring to w/c via SPT, max A. Pt indicates he feels anxious about transfers. Once at w/c, pt's gown appeared wet and OT/PT noted pt's IV leaking. Nurse notified and took care of IV, then OT assisted pt with changing upper body clothing. In order to increase functional mobility and UE strenght, pt self-propelled w/c from room to therapy gym. Pt taken to parallel bars, required extensive rest break. Pt then attempted to stand at parallel bars, buttocks clearing the seat but unable to stand upright. Pt sat back in chair, requiring another rest break. Pt declined further standing trials due to reports of being anxious. Pt then self-propelled w/c around [facility] common area, with frequent rest breaks. Pt taken back to room and performed SPT back to bed. Post OT/PT cotreat, pt laying in bed, call light in reach and all needs met. Education OT Patient Education: Correct positioning, Energy conservation, Modified ADL techniques, Progress toward Goal/Update tx plan, Purpose of tx/functional activities, Safety issues, Transfer techniques, W/C management Teaching Recipient: Patient Teaching Methods: Discussion Response to Teaching: Verbalize Understanding OT Short Term Goals Short Term Goals Time Frame: Oct 10, 2020 Toileting hygiene: 2 Shower/bathe self: 2 Lower body dressin Putting on/taking off footwear: 2 OT Watch Parts Grinder Goals Watch Parts Grinder Goals Time Frame: Oct 21, 2020 Eating (QC): 6 Oral Hygiene (QC): 6 Toileting Hygiene (QC): 4 Shower/Bathe Self (QC): 4 Upper Body Dressing (QC): 5 Lower Body Dressing (QC): 4 On/Off Footwear (QC): 4 1=Demonstrate adherence to instructed precautions during ADL tasks. 2=Patient will verbalize/demonstrate understanding of assistive devices/modifications for ADL. 3=Patient will improve strength/tolerance for activity to enable patient to perform ADL's. OT Education/Plan Problem List/Assessment Assessment: Decreased Activ Tolerance, Decreased UE Strength, Impaired Bed Mobility, Impaired Funct Balance, Impaired I ADL's, Impaired Self-Care Skills Discharge Recommendations Plan/Recommendations: Continue POC Treatment Plan/Plan of Care Patient would benefit from OT for education, treatment and training to promote independence in ADL's, mobility, safety and/or upper extremity function for ADL's. Plan of Care: ADL Retraining, Functional Mobility, Group Exercise/Act as Ind, UE Funct Exercise/Act Treatment Duration: Oct 21, 2020 Frequency: At least 5 of 7 days/Wk (IRF) Estimated Hrs Per Day: 1.5 hours per day Agreement: Yes Rehab Potential: Fair Time/GCodes Start Time: 08:30 Stop Time: 10:00 Total Time Billed (hr/min): 90 Billed Treatment Time 1, ADL 2 (30'), FA 4 (60') ALEXUS PACHECO OT Sep 29, 2020 10:11
--- NOTE | 2020-09-29 10:29 | Physical Therapy Daily Note ---
PT Daily Note-Current Subjective Patient in bed pre tx, agrees to PT, voices no complaints of pain. Will be co- treating with OT due to poor patient mobility, strength, endurance, poor sitting and standing balance, the need to coordinate UE and LE during activity. Appearance Patient in bed post tx with nurse call, phone, tray, all needs met, OT to continue to work with patient for a bit. Mental Status Patient Orientation: Person, Place, Situation Attachments: Oxygen, IV Transfers SCALE: Activities may be completed with or without assistive devices. 7-Shqnpmaigx-kpcglzv completes the activity by him/herself with no assistance from a helper. 5-Set-up or Clean-up Assistance-helper sets up or cleans up; patient completes activity. [place] assists only prior to or following the activity. 4-Supervision or Touching Assistance-helper provides verbal cues and/or touching /steadying and/or contact guard assistance as patient completes activity. Assistance may be provided throughout the activity or intermittently. 3-Partial/Moderate Assistance-helper does LESS THAN HALF the effort. [place] lifts, holds or supports trunk or limbs, but provides less than half the effort. 2-Substantial/Maximal Assistance-helper does MORE THAN HALF the effort. [place] lifts or holds trunk or limbs and provides more than half the effort. 9-Eecrruhph-lszbhi does ALL the effort. Patient does none of the effort to complete the activity. Or, the assistance of 2 or more helpers is required for the patient to complete the activity. If activity was not attempted, code reason: 7-Patient Refused. 9-Not Applicable-not attempted and the patient did not perform the activity before the current illness, exacerbation or injury. 10-Not Attempted due to Environmental Limitations-(lack of equipment, weather restraints, etc.). 88-Not Attempted due to Medical Conditions or Safety Concerns. Roll Left & Right (QC): 3 Sit to Lying (QC): 2 Lying to Sitting/Side of Bed(Q: 2 Sit to Stand (QC): 2 Chair/Xjw-fm-Mztsy Xfer(QC): 2 Max assist for supine to sit, max stand pivot transfer to , propel WC 100' to therapy gym with min assist, work in parallel bars, propel 120' back in hallway, stand pivot back to bed and then sit to supine. Wheelchair Training Does the Pt Use a Wheelchair?: Yes Wheel 50 ft with 2 turns (QC): 3 Type of Wheelchair: Manual 100', 120' Exercises attempted standing once in parallel bars, could not do it and patient didn't want to try it again Treatments bed mobility and transfers, WC mobility Assessment Current Status: Poor Progress Patient is not able to tolerate more than a few minutes of therapy at a time. He needs lengthy recovery periods for very little work with functional mobility or strengthening. Patient likely will make little to no progress with functi onal mobility if he cannot work on those tasks. PT Short Term Goals Short Term Goals Time Frame: Oct 05, 2020 Roll Left & Right: 4 Sit to lyin Lying to sitting on side of be: 3 Sit to stand: 2 Chair/mjw-ha-ofeoi transfer: 2 PT Conservation Or Heritage Architect Goals Mcc Goals PT Conservation Or Heritage Architect Goals Time Frame: Oct 19, 2020 Roll Left & Right (QC): 6 Sit to Lying (QC): 6 Lying-Sitting on Side/Bed(QC): 6 Sit to Stand (QC): 3 Chair/Nid-ho-Iljay Xfer(QC): 3 Toilet Transfer (QC): 3 Car Transfer (QC): 1 Does the Patient Walk: Yes Walk 10 feet (QC): 3 Walk 50ft with 2 Turns (QC): 88 Walk 150 ft (QC): 88 Walking 10ft on Uneven Surface: 88 1 Step (curb) (QC): 88 4 Steps (QC): 88 12 Steps (QC): 88 Picking up an Object (QC): 88 Wheel 50 feet with 2 turns (QC: 4 Wheel 150 feet: 4 PT Plan Problem List Problem List: Activity Tolerance, Functional Strength, Safety, Balance, Gait, Transfer, Bed Mobility, ROM Treatment/Plan Treatment Plan: Continue Plan of Care Treatment Plan: Bed Mobility, Education, Functional Activity [place], Functional Strength, Group Therapy, Gait, Safety, Therapeutic Exercise, Transfers Treatment Duration: Oct 19, 2020 Frequency: At least 5 of 7 days/Wk (IRF) Estimated Hrs Per Day: 1.5 hours per day Patient and/or Family Agrees t: Yes Safety Risks/Education Patient Education: Transfer Techniques, Correct Positioning, W/C Management, Safety Issues Teaching Recipient: Patient Teaching Methods: Demonstration, Discussion Response to Teaching: Reinforcement Needed Time/GCodes Time In: 0900 Time Out: 1000 Total Billed Treatment Time: 60 Total Billed Treatment 1 visit FA 60' co-treated for 60' CLAYTON GARCIA PT Sep 29, 2020 10:29
[2020-09-29] MEDS ORDERED: VANCOMYCIN 1500 MG/NS 500 ML IVPB IV SCH ×2 (11:00)
--- NOTE | 2020-09-29 11:06 | Consultation-Cardiology ---
HPI-Cardiology Cardiology Consultation: Date of Consultation 09/29/20 Time Seen by a Provider: 10:45 Date of Admission 09-28-2020 Attending Physician Marissa Jones DO Admitting Physician Laxmi,Local Physician Consulting Physician Ana Alanis MD HPI: Chief Complaint: Dyspnea H/O PAF Mr. Marks is an 80 year old male admitted to [facility] from [place]. Review of records available has been completed. He was admitted to [facility] in [place], [place] from [facility] on 08-20-2020 with pneumonia requiring intubation which was discontinued on 08-26-2020. He is currently in bed. He reports gen weakness and hoarse voice. He reports SOB, but feels it is better than yesterday. No c/o CP or palpitations. He denies seeing cardiology services in the past. He reports he has a history of a-fib and is on chronic warfarin, but denies any other cardiac history. He denies any n/v/d. Review of Systems-Cardiology Review of Systems Constitutional: As described under HPI Eyes: No vision change Ears/Nose/Throat: No epistaxis, No recent hearing loss Respiratory: As described under HPI Cardiovascular: As described under HPI Gastrointestinal: No constipation, No diarrhea, No nausea, No vomiting Genitourinary: no symptoms reported Musculoskeletal: other (gen weakness) Skin: No rash on exposed areas, No ulcerations on exposed areas Psychiatric/Neurological: No anxiety, No depression, No seizure, No syncope Hematologic: No bleeding abnormalities JPL-Uegyoe-Nvdrwt Hx Patient Social History Marrital Status: Employed/Student: retired Alcohol Use: Past History Recreational Drug Use: No Smoking Status: Unknown if Ever Smoked Type Used: Cigarettes Recent Foreign Travel: No Recent Infectious Disease Expo: No Hospitalization with Isolation: Denies Physical Abuse Screen: No Sexual Abuse: No Immunizations Up To Date Date of Pneumonia Vaccine: Jul 27, 2020 Date of Influenza Vaccine: Jul 27, 2020 Past Medical History PMH As described under Assessment. Family Medical History Family Medical History: Does not report any family h/o CAD. Allergies and Home Medications Allergies Coded Allergies: No Allergy Information Available (Unverified , 09/28/20) Home Medications Acetaminophen 650 Mg Tablet.er, 650 MG PO Q6H PRN for PAIN-MILD (1-4) OR TEMPATURE, (Reported) Acetylcysteine 600 Mg Capsule, 1,200 MG PO BID, (Reported) TAKES 2 (600MG) CAPS Albuterol Sulfate 2.5 Mg/0.5 Ml Vial.neb, 2.5 MG INH Q4H PRN for SHORTNESS OF BREATH, (Reported) Alprazolam 0.25 Mg Tablet, 0.25 MG PO HS, (Reported) Amiodarone HCl 200 Mg Tablet, 200 MG PO BID, (Reported) HOLD FOR HR LESS THAN 55 Dextrose 50 % in Water 50 Ml Syringe, 50 ML IV PRN PRN for GLUCOSE LESS THEN 50, (Reported) Fluticasone Propionate 9.9 Ml [place].susp, 1 SPRAY NS BID, (Reported) Fluticasone/Vilanterol 1 Each Blst.w.dev, 1 EACH IH DAILY, (Reported) Furosemide 10 Mg/1 Ml Vial, 40 MG IV BID, (Reported) HOLD FOR SYSTOLIC BLOOD PRESSURE LESS THAN 100 Insulin Glargine,Hum.rec.anlog 100 Unit/1 Ml Vial, 15 UNIT SQ 0700, (Reported) Insulin Lispro 100 Unit/1 Ml Vial, UNIT SQ ACHS, (Reported) USE PER SLIDING SCALE Ipratropium/Albuterol Sulfate 3 Ml Ampul.neb, 3 ML IH Q4H PRN for SHORTNESS OF BREATH, (Reported) Ipratropium/Albuterol Sulfate 3 Ml Ampul.neb, 3 ML IH 0700,1100,1500,1900, (Reported) Ipratropium/Albuterol Sulfate 3 Ml Ampul.neb, 3 ML IH Q4H PRN for SHORTNESS OF BREATH, (Reported) Methylprednisolone Sod Succ/Pf 40 Mg/1 Ml Vial, 40 MG IV DAILY, (Reported) DILUATE WITH AT LEAST 10 ML STERILE WATER OR NORMAL SALINE Multivitamin with Minerals 1 Each Tablet, 1 EACH PO DAILY, (Reported) Nystatin 100,000 Unit/1 Ml Oral.susp, 5 ML PO QID, (Reported) SWISH AND SWALLOW- USE FOR 7 DAYS Ondansetron HCl 2 Mg/1 Ml Vial, 4 MG IV Q4H PRN for NAUSEA/VOMITING-1ST LINE, (Reported) Pantoprazole Sodium 40 Mg Tablet.dr, 40 MG PO DAILY, (Reported) Saliva Substitution Combo No.9 473 Ml Mouthwash, 10 ML MM TID, (Reported) Sildenafil Citrate 20 Mg Tablet, 20 MG PO TID, (Reported) HOLD FOR SYSTOLIC PRESSUE LESS THAN 100 Ubidecarenone 400 Mg Capsule, 400 MG PO DAILY, (Reported) Warfarin Sodium 1 Mg Tablet, 1 MG PO 1700, (Reported) [Folic Acid] , 1 MG PO DAILY, (Reported) Physical Exam-Cardiology Physical Exam Vital Signs/I&O 09/30/20 05:48 Temp 36.9 Pulse 71 Resp 20 B/P (MAP) 107/53 (71) Pulse Ox 93 O2 Delivery Nasal Cannula O2 Flow Rate 5.00 09/30/20 00:00 Intake Total 960 ml Balance 960 ml Capillary Refill : Less Than 3 Seconds Constitutional: AAO x 3, well-developed, well-nourished HEENT: PERRL, hard of hearing, oral hygience is good Neck: No carotid bruit; carotid pulses are 2 + bilaterally Respiratory: No accessory muscle use, No respiratory distress; chest expansion is symmetric, chest is bilaterally symmetric, other (diminished bases bilat) Cardiovascular: regular rate-rhythm; No JVD; S1 and S2 Gastrointestinal: No tender; soft, round, audible bowel sounds Extremities: no lower extremity edema bilateral Neurologic/Psychiatric: grossly intact (moves all extremities; gen weakness) Skin: No rash on exposed areas, No ulcerations on exposed areas Data Review Labs Laboratory Tests 09/29/20 11:00: Glucometer 112H 09/29/20 15:35: Glucometer 159H 09/29/20 19:48: Glucometer 277H 09/30/20 05:20: Glucometer 157H 09/30/20 05:33: White Blood Count 13.2H, Red Blood Count 2.32L, Hemoglobin 6.8*L, Hematocrit 22L , Mean Corpuscular Volume 96, Mean Corpuscular Hemoglobin 29, Mean Corpuscular Hemoglobin Concent 31L, Red Cell Distribution Width 19.2H, Platelet Count 198, Mean Platelet Volume 11.0, Immature Granulocyte % (Auto) 2, Neutrophils (%) (Auto) 86H, Lymphocytes (%) (Auto) 6L, Monocytes (%) (Auto) 5, Eosinophils (%) (Auto) 0, Basophils (%) (Auto) 0, Neutrophils # (Auto) 11.4H, Lymphocytes # (Auto) 0.8L, Monocytes # (Auto) 0.7, Eosinophils # (Auto) 0.0, Basophils # (Auto) 0.0, Immature Granulocyte # (Auto) 0.2H, Prothrombin Time 19.9H, INR Comment 1.6H, Sodium Level 139, Potassium Level 4.3, Chloride Level 104, Carbon Dioxide Level 27, Anion Gap 8, Blood Urea Nitrogen 49H, Creatinine 0.95, Estimat Glomerular Filtration Rate > 60, BUN/Creatinine Ratio 52, Glucose Level 132H, Calcium Level 7.2L, Corrected Calcium 8.6, Total Bilirubin 0.4, Aspartate Amino Transf (AST/SGOT) 26, Alanine Aminotransferase (ALT/SGPT) 65H, Alkaline Phos phatase 79, Total Protein 4.1L, Albumin 2.2L, Procalcitonin 0.11H Microbiology 09/28/20 Blood Culture - Preliminary, Resulted No growth Radiology NAME: SHELLEY MARKS [facility] REC#: [id number] PT STATUS: ADM IN : 1940 PHYSICIAN: MARISSA JONES DO ADMIT DATE: 09/28/20/IRF Signed Date of Exam:09/28/20 CHEST 1 VIEW, AP/PA ONLY INDICATION: Shortness of air. TECHNIQUE: Single view chest at 4:26 PM. CORRELATION STUDY: None. FINDINGS: Scattered bilateral pulmonary infiltrates are present. They may be slightly more pronounced at the mid and lower lung holguin, left greater than right. Heart size and mediastinal structures are somewhat obscured but the heart does appear to be enlarged. A component of vascular congestion would be difficult to exclude. IMPRESSION: 1. Bilateral pulmonary infiltrates, left greater the right, do suggest multilobe pneumonia. 2. Cardiac enlargement with likely some degree of vascular prominence. Dictated by: Dictated on workstation # [id number] Dict: 09/28/20 1634 Trans: 09/28/20 1701 [id number] Interpreted by: JOSE WITT DO Electronically signed by: JOSE WITT DO 09/28/20 1705 A/P-Cardiology Assessment/Admission Diagnosis Pneumonia with sepsis - management per pulmonary/medical services PAF OAC with warfarin Echocardiogram of Sep 28, 2020 showed LVEF 55-65%. 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 Jones Discussion and Recomendations Pneumonia with sepsis management per pulmonary/medical services H/O PAF - EKG today Chronic OAC with warfarin - subtherapeutic - monitor dose closely d/t abx tx - adjust dose as indicated Monitor lab Replace electrolytes as indicated Further recs will be based on his hospital course We would like to thank Dr. Jones for this consult Clinical Quality Measures DVT/VTE Risk/Contraindication: Risk Factor Score Per Nursin RFS Level Per Nursing on Admit: 4+=Very High VERONICA POST Sep 29, 2020 11:06
--- NOTE | 2020-09-29 11:11 | Diagnostic Imaging Report ---
INDICATION: Elevated lactic acid, shortness of breath. COMPARISON: September 28, 2020. TECHNIQUE: Single radiograph of the chest dated September 29, 2020. FINDINGS: The cardiac silhouette is enlarged, similar to the prior examination. No significant pulmonary vascular congestion. Decreased lung volumes with extensive bilateral pulmonary infiltrates, particularly peripherally. These have slightly worsened since the prior examination. No significant right pleural effusion with possible tiny left pleural effusion. Chronic-appearing right-sided rib fractures. No acute osseous abnormality. No pneumothorax. IMPRESSION: Decreased lung volumes with worsening extensive bilateral pulmonary infiltrates. Findings are concerning for multifocal pneumonia, COVID-19 should be considered. Enlargement of the cardiac silhouette without significant pulmonary vascular congestion. Dictated by: Dictated on workstation # [id number]
--- NOTE | 2020-09-29 12:13 | Pulmonary Consultation ---
History of Present Illness History of Present Illness Date Seen by Provider: Sep 29, 2020 Time Seen by Provider: 04:00 Date of Admission Allergies and Home Medications Allergies Coded Allergies: No Allergy Information Available (Unverified , 09/28/20) Home Medications Acetaminophen 650 Mg Tablet.er, 650 MG PO Q6H PRN for PAIN-MILD (1-4) OR TEMPATURE, (Reported) Acetylcysteine 600 Mg Capsule, 1,200 MG PO BID, (Reported) TAKES 2 (600MG) CAPS Albuterol Sulfate 2.5 Mg/0.5 Ml Vial.neb, 2.5 MG INH Q4H PRN for SHORTNESS OF BREATH, (Reported) Alprazolam 0.25 Mg Tablet, 0.25 MG PO HS, (Reported) Amiodarone HCl 200 Mg Tablet, 200 MG PO BID, (Reported) HOLD FOR HR LESS THAN 55 Dextrose 50 % in Water 50 Ml Syringe, 50 ML IV PRN PRN for GLUCOSE LESS THEN 50, (Reported) Fluticasone Propionate 9.9 Ml [place].susp, 1 SPRAY NS BID, (Reported) Fluticasone/Vilanterol 1 Each Blst.w.dev, 1 EACH IH DAILY, (Reported) Furosemide 10 Mg/1 Ml Vial, 40 MG IV BID, (Reported) HOLD FOR SYSTOLIC BLOOD PRESSURE LESS THAN 100 Insulin Glargine,Hum.rec.anlog 100 Unit/1 Ml Vial, 15 UNIT SQ 0700, (Reported) Insulin Lispro 100 Unit/1 Ml Vial, UNIT SQ ACHS, (Reported) USE PER SLIDING SCALE Ipratropium/Albuterol Sulfate 3 Ml Ampul.neb, 3 ML IH Q4H PRN for SHORTNESS OF BREATH, (Reported) Ipratropium/Albuterol Sulfate 3 Ml Ampul.neb, 3 ML IH 0700,1100,1500,1900, (Reported) Ipratropium/Albuterol Sulfate 3 Ml Ampul.neb, 3 ML IH Q4H PRN for SHORTNESS OF BREATH, (Reported) Methylprednisolone Sod Succ/Pf 40 Mg/1 Ml Vial, 40 MG IV DAILY, (Reported) DILUATE WITH AT LEAST 10 ML STERILE WATER OR NORMAL SALINE Multivitamin with Minerals 1 Each Tablet, 1 EACH PO DAILY, (Reported) Nystatin 100,000 Unit/1 Ml Oral.susp, 5 ML PO QID, (Reported) SWISH AND SWALLOW- USE FOR 7 DAYS Ondansetron HCl 2 Mg/1 Ml Vial, 4 MG IV Q4H PRN for NAUSEA/VOMITING-1ST LINE, (Reported) Pantoprazole Sodium 40 Mg Tablet.dr, 40 MG PO DAILY, (Reported) Saliva Substitution Combo No.9 473 Ml Mouthwash, 10 ML MM TID, (Reported) Sildenafil Citrate 20 Mg Tablet, 20 MG PO TID, (Reported) HOLD FOR SYSTOLIC PRESSUE LESS THAN 100 Ubidecarenone 400 Mg Capsule, 400 MG PO DAILY, (Reported) Warfarin Sodium 1 Mg Tablet, 1 MG PO 1700, (Reported) [Folic Acid] , 1 MG PO DAILY, (Reported) Past Tpqhmvt-Cpckld-Wpklgb Hx Past Med/Social Hx: Reviewed Nursing Past Med/Soc Hx, Reviewed and Corrections made Patient Social History Alcohol Use: Past History Alcohol Beverage of Choice: Beer, [place] Recreational Drug Use: No Smoking Status: Unknown if Ever Smoked Type Used: Cigarettes Former Smoker, Quit: Oct 29, 1979 Recent Foreign Travel: No Contact w/Someone Who Travel: No Recent Infectious Disease Expo: No Recent Hopitalizations: No Immunizations Up To Date PED Vaccines UTD: Yes Date of Pneumonia Vaccine: Jul 27, 2020 Date of Influenza Vaccine: Jul 27, 2020 Seasonal Allergies Seasonal Allergies: No Past Medical History Surgeries: No Pneumonia, Pulmonary Embolism Currently Using CPAP: No Currently Using BIPAP: No Cardiac: Yes Atrial Fibrillation, Chronic Edema/Swelling Neurological: No Renal Failure Gastrointestinal: Yes Gastroesophageal Reflux Musculoskeletal: No Endocrine: Yes Diabetes, Insulin dep Are Your Blood Sugars Over 250: Yes HEENT: No Cancer: No Psychosocial: No Integumentary: Yes Eczema Blood Disorders: No Adverse Reaction/Blood Tranf: No Sepsis Event Evaluation Height, Weight, BMI Height: '" Weight: lbs. oz. kg; 26.02 BMI Method: Exam Exam Vital Signs Date Time Temp Pulse Resp B/P (MAP) Pulse Ox O2 Delivery O2 Flow Rate FiO2 09/29/20 09:00 94 Nasal Cannula 5.00 09/29/20 05:02 36.4 68 20 119/56 (77) 92 Nasal Cannula 5.50 09/29/20 01:35 37.0 09/28/20 21:15 94 Nasal Cannula 5.00 09/28/20 21:10 36.6 79 20 156/65 (95) 94 Nasal Cannula 5.00 09/28/20 19:10 4.50 94 09/28/20 17:33 36.8 85 22 120/57 (78) 92 Nasal Cannula 5.00 09/28/20 16:32 Nasal Cannula 5.00 09/28/20 12:34 36.0 80 18 124/61 94 Nasal Cannula 5.00 I & O 09/29/20 07:00 Intake Total 1340 ml Balance 1340 ml Height & Weight Height: '" Weight: lbs. oz. kg; 26.02 BMI Method: General Appearance: No Apparent Distress, WD/WN, Chronically ill HEENT: PERRL/EOMI, Normal ENT Inspection, Pharynx Normal Neck: Full Range of Motion, Normal Inspection, Non Tender, Supple, Carotid Bruit Respiratory: Chest Non Tender, No Accessory Muscle Use, No Respiratory Distress, Decreased Breath Sounds Cardiovascular: Regular Rate, Rhythm, No Edema, No Gallop, No JVD, No Murmur, Normal Peripheral Pulses Capillary Refill: Less Than 3 Seconds Extremity: Normal Capillary Refill, Normal Inspection, Normal Range of Motion, Non Tender, No Calf Tenderness, No Pedal Edema Neurologic/Psychiatric: Alert, Oriented x3, Normal Mood/Affect, recruiting consultant II-XII Norm as Tested, Abnormal Gait, Depressed Affect, Motor Weakness (severe 3/5 all extremities) Skin: Normal Color, Warm/Dry Lymphatic: No Adenopathy Results Lab Laboratory Tests 09/28/20 20:35 09/29/20 04:50 Assessment/Plan Assessment/Plan PNA -Continue Vanco and Merrem -[place] cultures pending -Check CT of chest -CXR reviewed Metabolic lactic acidosis -IVF BRIDGETTE PÉREZ DO Sep 29, 2020 12:13
[2020-09-29] MEDS ORDERED: HOLD METFORMIN - RECEIVED CONTRAST 20 ML VIAL IV SCH (12:30)
[2020-09-29] MEDS ORDERED: NS 100 ML (IVPB) BAG IV ONE (12:30)
[2020-09-29] MEDS ORDERED: IOHEXOL 350 MG/ML 100 ML (OMNIPAQUE 350) VIAL IV ONE (12:30)
--- NOTE | 2020-09-29 12:49 | PM&R Progress Note ---
Subjective HPI/CC On Admission Date Seen by Provider: Sep 29, 2020 Time Seen by Provider: 05:10 Subjective/Events-last exam Very complex issues overnight Reviewed chest x-ray done earlier in the day and it showed bilateral infiltrates and considering he had a Covid-like illness that prompted the hospital stay 1 month ago and considering his continued hypoxia managed with Lasix and steroids at [facility] I went ahead and did the sepsis work-up which revealed elevated lactic acid but not likely due to pneumonia but likely dehydration and volume depletion since he had thrush and was not eating or drinking well Covered him with broad-spectrum antibiotics Consulted Dr. Gamble Consulted Dr. Alanis IV fluids initiated Check echocardiogram Conferred with RN Reviewed therapy notes Check meds and labs Review of Systems General: Fatigue, Malaise Pulmonary: Dyspnea Focused Exam Lactate Level 09/28/20 20:35: Lactic Acid Level 2.73*H 09/28/20 23:05: Lactic Acid Level 3.37*H 09/29/20 04:50: Lactic Acid Level 1.17 Objective Exam Vital Signs Vital Signs Date Time Temp Pulse Resp B/P (MAP) Pulse Ox O2 Delivery O2 Flow Rate FiO2 09/29/20 17:02 36.6 74 20 148/63 (91) 96 Nasal Cannula 6.00 09/28/20 19:10 94 Capillary Refill : Less Than 3 Seconds General Appearance: No Apparent Distress, WD/WN, Chronically ill HEENT: PERRL/EOMI, Normal ENT Inspection, Pharynx Normal Neck: Full Range of Motion, Normal Inspection, Non Tender, Supple, Carotid Bruit Respiratory: Chest Non Tender, No Accessory Muscle Use, No Respiratory Distress, Decreased Breath Sounds Cardiovascular: Regular Rate, Rhythm, No Edema, No Gallop, No JVD, No Murmur, Normal Peripheral Pulses Gastrointestinal: Normal Bowel Sounds, No Organomegaly, No Pulsatile Mass, Non Tender, Soft Back: Normal Inspection, No CVA Tenderness, No Vertebral Tenderness Extremity: Normal Capillary Refill, Normal Inspection, Normal Range of Motion, Non Tender, No Calf Tenderness, No Pedal Edema Neurologic/Psychiatric: Alert, Oriented x3, Normal Mood/Affect, pharmacology associate II-XII Norm as Tested, Abnormal Gait, Depressed Affect, Motor Weakness (severe 3/5 all extremities) Skin: Normal Color, Warm/Dry Lymphatic: No Adenopathy Results/Procedures Lab Laboratory Tests 12/2/20 20:35 09/29/20 04:50 Patient resulted labs reviewed. FIM Transfers Therapy Code Descriptions/Definitions Functional [place] Measure: 0=Not Assessed/NA 4=Minimal Assistance 1=Total Assistance 5=Supervision or Setup 2=Maximal Assistance 6=Modified [place] 3=Moderate Assistance 7=Complete IndependenceSCALE: Activities may be completed with or without assistive devices. 8-Hbjqvpohun-fsxvqtx completes the activity by him/herself with no assistance from a helper. 5-Set-up or Clean-up Assistance-helper sets up or cleans up; patient completes activity. [place] assists only prior to or following the activity. 4-Supervision or Touching Assistance-helper provides verbal cues and/or touching/steadying and/or contact guard assistance as patient completes activity. Assistance may be provided throughout the activity or intermittently. 3-Partial/Moderate Assistance-helper does LESS THAN HALF the effort. [place] lifts, holds or supports trunk or limbs, but provides less than half the effort. 2-Substantial/Maximal Assistance-helper does MORE THAN HALF the effort. [place] lifts or holds trunk or limbs and provides more than half the effort. 4-Clmwfqaqd-ntdgsu does ALL the effort. Patient does none of the effort to complete the activity. Or, the assistance of 2 or more helpers is required for the patient to complete the activity. If activity was not attempted, code reason: 7-Patient Refused. 9-Not Applicable-not attempted and the patient did not perform the activity before the current illness, exacerbation or injury. 10-Not Attempted due to Environmental Limitations-(lack of equipment, weather r estraints, etc.). 88-Not Attempted due to Medical Conditions or Safety Concerns. Roll Left to Right (QC): 3 Sit to Lying (QC): 2 Sit to Stand (QC): 2 Chair/Nuo-nf-Cqjyw Xfer(QC): 2 Car Transfer (QC): 1 Gait Training Does the Patient Walk?: No and Walking Goal IS indicated Walk 10 feet (QC): 3 Walk 50 ft with 2 Turns(QC): 88 Walk 150 ft (QC): 88 Walking 10ft/uneven surface-QC: 88 Wheelchair Training Does the Pt Use a Wheelchair?: Yes Wheel 50 ft with 2 turns (QC): 3 Wheel 150 ft (QC): 1 Type of Wheelchair: Manual Stair Training 1 Step (curb) (QC): 88 4 Steps (QC): 88 12 Steps (QC): 88 Balance Picking up an Object (QC): 88 ADL-Treatment Eating (QC): 6 (Pt indicates independent with feeding. No difficulty with lunch , able to cut his food, use utensils, and bring food/drink to mouth.) Oral Hygiene (QC): 5 (set up at bed level) Shower/Bathe Self (QC): 2 (Sponge bath max A, pt able to wash arms, chest/stomach, required assistance for thoroughness. OT washed all other parts.) Upper Body Dressing (QC): 3 ([place]) Lower Body Dressing (QC): 1 (pt rolled side to side with mod A, OT changed soiled brief for pt.) On/Off Footwear (QC): 1 Toileting Hygiene (QC): 1 (Mod A rolling side to side in bed, OT performed hygiene and changed soiled brief.) Assessment/Plan Assessment and Plan Assess & Plan/Chief Complaint Assessment: COPD myopathy Hypoxia Abnormal CXR Thrush Coumadin treatment Respiratory failure DM GERD PHTN Plan: Check INR IRF protocol Dr Alanis and Dr Gamble consulted 09/29/20: Broad-spectrum antibiotics Pulmonology consultation Check labs Monitor oxygen level Monitor closely (1) Myopathy (2) Atrial fibrillation (3) Warfarin anticoagulation (4) Diabetes mellitus (5) COPD (chronic obstructive pulmonary disease) (6) Hypoxemia (7) Volume overload (8) SAEID Melchor DO Sep 29, 2020 12:49
[2020-09-29] MEDS: NS IV 1000 ML 1,000 ML IV SCH (13:10)
--- NOTE | 2020-09-29 13:16 | Diagnostic Imaging Report ---
CHEST 1 VIEW, AP/PA ONLY INDICATION: PICC placement. COMPARISON: 09/29/2020 at 1047 hours. FINDINGS: Left PICC has tip terminating in the upper SVC near the azygos arch. Heterogeneous pulmonary opacities in both mid and lower lung zones are unchanged. These remain most confluent on the left. Potential small left pleural effusion. No pneumothorax. Normal heart size. IMPRESSION: 1. Left PICC has tip in the upper SVC near the azygos arch. 2. No change in bilateral pulmonary opacities. Dictated by: Dictated on workstation # [id number]
--- NOTE | 2020-09-29 14:05 | Physical Therapy Daily Note ---
PT Daily Note-Current Subjective Patient in bed pre tx, agrees to PT, has no complaints of pain. Patient has just been through some medical testing and procedures, he still agrees to exercises in bed. Appearance Patient in bed post tx with nurse call, phone, tray, all needs met. Mental Status Patient Orientation: Person, Place, Situation Attachments: Oxygen, IV Transfers SCALE: Activities may be completed with or without assistive devices. 0-Gdgrhrybfz-dcjaclp completes the activity by him/herself with no assistance from a helper. 5-Set-up or Clean-up Assistance-helper sets up or cleans up; patient completes activity. [place] assists only prior to or following the activity. 4-Supervision or Touching Assistance-helper provides verbal cues and/or touching/steadying and/or contact guard assistance as patient completes activity. Assistance may be provided throughout the activity or intermittently. 3-Partial/Moderate Assistance-helper does LESS THAN HALF the effort. [place] lifts, holds or supports trunk or limbs, but provides less than half the effort. 2-Substantial/Maximal Assistance-helper does MORE THAN HALF the effort. [place] lifts or holds trunk or limbs and provides more than half the effort. 7-Btbkqtlfa-wshvmk does ALL the effort. Patient does none of the effort to complete the activity. Or, the assistance of 2 or more helpers is required for the patient to complete the activity. If activity was not attempted, code reason: 7-Patient Refused. 9-Not Applicable-not attempted and the patient did not perform the activity before the current illness, exacerbation or injury. 10-Not Attempted due to Environmental Limitations-(lack of equipment, weather restraints, etc.). 88-Not Attempted due to Medical Conditions or Safety Concerns. Exercises Supine Ex: Ankle pumps, Quad Set, Glut sets, Heel Slides, Short Arc Quads, Straight leg raise, Hip abd/add Supine Reps: 20 Treatments LE exercise Assessment Current Status: Fair Progress weaker RLE, occasional rest break PT Short Term Goals Short Term Goals Time Frame: Oct 05, 2020 Roll Left & Right: 4 Sit to lyin Lying to sitting on side of be: 3 Sit to stand: 2 Chair/sxt-qf-fwxjq transfer: 2 PT [employer] Goals Care Home Goals PT [employer] Instructor Goals Time Frame: Oct 19, 2020 Roll Left & Right (QC): 6 Sit to Lying (QC): 6 Lying-Sitting on Side/Bed(QC): 6 Sit to Stand (QC): 3 Chair/Nyi-cc-Rmqpo Xfer(QC): 3 Toilet Transfer (QC): 3 Car Transfer (QC): 1 Does the Patient Walk: Yes Walk 10 feet (QC): 3 Walk 50ft with 2 Turns (QC): 88 Walk 150 ft (QC): 88 Walking 10ft on Uneven Surface: 88 1 Step (curb) (QC): 88 4 Steps (QC): 88 12 Steps (QC): 88 Picking up an Object (QC): 88 Wheel 50 feet with 2 turns (QC: 4 Wheel 150 feet: 4 PT Plan Problem List Problem List: Activity Tolerance, Functional Strength, Safety, Balance, Gait, Transfer, Bed Mobility, ROM Treatment/Plan Treatment Plan: Continue Plan of Care Treatment Plan: Bed Mobility, Education, Functional Activity [place], Functional Strength, Group Therapy, Gait, Safety, Therapeutic Exercise, Transfers Treatment Duration: Oct 19, 2020 Frequency: At least 5 of 7 days/Wk (IRF) Estimated Hrs Per Day: 1.5 hours per day Patient and/or Family Agrees t: Yes Safety Risks/Education Patient Education: Correct Positioning, Safety Issues Teaching Recipient: Patient Teaching Methods: Demonstration, Discussion Response to Teaching: Reinforcement Needed Time/GCodes Time In: 1330 Time Out: 1400 Total Billed Treatment Time: 30 Total Billed Treatment 1 visit EX 30' CLAYTON GARCIA PT Sep 29, 2020 14:05
--- NOTE | 2020-09-29 15:41 | Diagnostic Imaging Report ---
PROCEDURE: CT angiography Chest TECHNIQUE: After intravenous administration of contrast, thin section axial CT angiography of the chest was performed. 3D MIP reconstructions were made. All CT scans use one or more of the following dose optimizing techniques: automated exposure control, MA and/or KvP adjustment based on a patient size and exam type, or iterative reconstruction. INDICATION: Shortness of breath COMPARISON: None available FINDINGS: Vasculature: No pulmonary emboli. The pulmonary trunk is dilated measuring 2.5 cm and this can be seen with pulmonary hypertension. Mild flattening of the intraventricular septum. Thoracic aorta is normal in caliber. No aortic dissection or pseudoaneurysm. Heart and mediastinum: Visualized thyroid is normal. No supraclavicular, axillary, or intra-thoracic lymphadenopathy. Heart is enlarged with left ventricular hypertrophy. Pleura: Trace bilateral pleural effusions. No pneumothorax. Lungs and airway: No endoluminal lesion in the trachea or central bronchi. Moderate centrilobular emphysema. Basilar peribronchial consolidations are present and greatest in the lower lobes. There are areas of traction bronchiectasis within the bilateral lower lobes. Additionally, there is some region of stack subpleural cystic change in the right lower lobe and lingula indicative of small regions of pulmonary fibrosis. Upper abdomen: Allowing for the phase of contrast, no acute abnormality in the upper abdomen is seen. Musculoskeletal: No concerning osseous lesion. IMPRESSION: 1. No pulmonary emboli or acute aortic syndrome. 2. Cardiomegaly with groundglass pulmonary opacities and peribronchial consolidations of lung bases could be due to pulmonary edema. Alternatively, infection or acute exacerbation of interstitial lung disease could also give this appearance. 3. Small regions of honeycombing and traction bronchiectasis in the lung bases are indicative of pulmonary fibrosis. This is a possible UIP pattern of pneumonia. 4. Trace bilateral pleural effusions. Dictated by: Dictated on workstation # [id number]
--- NOTE | 2020-09-29 15:45 | NUR ---
"RD ASSESSMENT PMHx: COPD; pneumonia; afib; GERD; DM; PT INTERACTION: Pt was awake and pleasant during nutrition assessment. Pt states current appetite is good. Note avg PO intake 75% x3meal, per chart review. Pt states following a regular diet at home, and has no issues with chewing/swallowing food. Pt states no recent issues with n/v/c/d. Note last BM was 09/29, and pt currently on bowel regimen of colace BID, senna BID, and miralax BID, per chart review. Pt states no recent wt changes. Note unable to determine recent wt hx, per chart review. Pt states current DM management is good. Note unable to determine recent HbA1c, per chart review. ABNORMAL NUTRITION-RELATED LAB VALUES LOW: Ca 7.2; Pro 4.3; alb 2.2; HIGH: BUN 51; glu 130; ALT 76 Est. kcal needs: 6788-3195 kcal | 20-25 kcal/kg Est. Pro needs: 92-110 g Pro | 1.0-1.2 g Pro/kg PES STATEMENT: Given current appetite and PO intake, no nutrition diagnosis at this time (NO-1.1). INTERVENTION: Continue with current diet order of CHO 60g/m 3snack diet. Offered diet education on DM management, but pt declined. Will attempt to offer again prior to discharge. Will continue to follow and reassess as pt needs, intake, and status change. Mable Martinez, MS RD LD [phone] cell"
[2020-09-29] MEDS ORDERED: warFARin 2.5 MG (COUMADIN) TAB PO NR (17:00)
[2020-09-29 17:02] VITALS: BP 148/63
--- NOTE | 2020-09-29 19:30 | Consultation-Cardiology ---
HPI-Cardiology Cardiology Consultation: Date of Consultation 09/29/20 Time Seen by a Provider: 18:30 Date of Admission Attending Physician Marissa Perez DO Admitting Physician No,Local Physician Consulting Physician JENIFFER ROBERT MD, MA, FACP, FACC, [facility] [place], CCDS Physician requesting consult: Dr Perez HPI: Chief Complaint: Reason for consultation: Dyspnea, H/O PAF HPI Mr. Marks is an 80 year old male admitted to [facility] from [facility]. Review of records available has been completed. He was admitted to [facility] in [place], [place] from [facility] on 08-20-2020 with pneumonia requiring intubation which was discontinued on 08-26-2020. He is currently in bed. He reports gen weakness and hoarse voice. He reports SOB, but feels it is better than yesterday. No c/o CP or palpitations. He denies seeing cardiology services in the past. He reports he has a history of a-fib and is on chronic warfarin, but denies any other cardiac history. He denies any n/v/d. Review of Systems-Cardiology Review of Systems Constitutional: As described under HPI Eyes: No vision change Ears/Nose/Throat: No epistaxis, No recent hearing loss Respiratory: As described under HPI Cardiovascular: As described under HPI Gastrointestinal: No constipation, No diarrhea, No nausea, No vomiting Genitourinary: no symptoms reported Musculoskeletal: other (gen weakness) Skin: No rash on exposed areas, No ulcerations on exposed areas Psychiatric/Neurological: No anxiety, No depression, No seizure, No syncope Hematologic: No bleeding abnormalities JAS-Hplbss-Evplaa Hx Patient Social History Marrital Status: Employed/Student: retired Alcohol Use: Past History Recreational Drug Use: No Smoking Status: Unknown if Ever Smoked Type Used: Cigarettes Recent Foreign Travel: No Recent Infectious Disease Expo: No Hospitalization with Isolation: Denies Physical Abuse Screen: No Sexual Abuse: No Immunizations Up To Date Date of Pneumonia Vaccine: Jul 27, 2020 Date of Influenza Vaccine: Jul 27, 2020 Past Medical History PMH As described under Assessment. Family Medical History Family Medical History: Does not report any family h/o CAD. Allergies and Home Medications Allergies Coded Allergies: No Allergy Information Available (Unverified , 09/28/20) Home Medications Acetaminophen 650 Mg Tablet.er, 650 MG PO Q6H PRN for PAIN-MILD (1-4) OR TEMPATURE, (Reported) Acetylcysteine 600 Mg Capsule, 1,200 MG PO BID, (Reported) TAKES 2 (600MG) CAPS Albuterol Sulfate 2.5 Mg/0.5 Ml Vial.neb, 2.5 MG INH Q4H PRN for SHORTNESS OF BREATH, (Reported) Alprazolam 0.25 Mg Tablet, 0.25 MG PO HS, (Reported) Amiodarone HCl 200 Mg Tablet, 200 MG PO BID, (Reported) HOLD FOR HR LESS THAN 55 Dextrose 50 % in Water 50 Ml Syringe, 50 ML IV PRN PRN for GLUCOSE LESS THEN 50, (Reported) Fluticasone Propionate 9.9 Ml Sam[place].susp, 1 SPRAY NS BID, (Reported) Fluticasone/Vilanterol 1 Each Blst.w.dev, 1 EACH IH DAILY, (Reported) Furosemide 10 Mg/1 Ml Vial, 40 MG IV BID, (Reported) HOLD FOR SYSTOLIC BLOOD PRESSURE LESS THAN 100 Insulin Glargine,Hum.rec.anlog 100 Unit/1 Ml Vial, 15 UNIT SQ 0700, (Reported) Insulin Lispro 100 Unit/1 Ml Vial, UNIT SQ ACHS, (Reported) USE PER SLIDING SCALE Ipratropium/Albuterol Sulfate 3 Ml Ampul.neb, 3 ML IH Q4H PRN for SHORTNESS OF BREATH, (Reported) Ipratropium/Albuterol Sulfate 3 Ml Ampul.neb, 3 ML IH 0700,1100,1500,1900, (Reported) Ipratropium/Albuterol Sulfate 3 Ml Ampul.neb, 3 ML IH Q4H PRN for SHORTNESS OF BREATH, (Reported) Methylprednisolone Sod Succ/Pf 40 Mg/1 Ml Vial, 40 MG IV DAILY, (Reported) DILUATE WITH AT LEAST 10 ML STERILE WATER OR NORMAL SALINE Multivitamin with Minerals 1 Each Tablet, 1 EACH PO DAILY, (Reported) Nystatin 100,000 Unit/1 Ml Oral.susp, 5 ML PO QID, (Reported) SWISH AND SWALLOW- USE FOR 7 DAYS Ondansetron HCl 2 Mg/1 Ml Vial, 4 MG IV Q4H PRN for NAUSEA/VOMITING-1ST LINE, (Reported) Pantoprazole Sodium 40 Mg Tablet.dr, 40 MG PO DAILY, (Reported) Saliva Substitution Combo No.9 473 Ml Mouthwash, 10 ML MM TID, (Reported) Sildenafil Citrate 20 Mg Tablet, 20 MG PO TID, (Reported) HOLD FOR SYSTOLIC PRESSUE LESS THAN 100 Ubidecarenone 400 Mg Capsule, 400 MG PO DAILY, (Reported) Warfarin Sodium 1 Mg Tablet, 1 MG PO 1700, (Reported) [Folic Acid] , 1 MG PO DAILY, (Reported) Patient Home Medication List Home Medication List Reviewed: Yes Physical Exam-Cardiology Physical Exam Vital Signs/I&O 09/29/20 09/29/20 09/29/20 09/29/20 09:00 09:12 17:02 19:08 Temp 36.6 Pulse 74 Resp 20 B/P (MAP) 148/63 (91) Pulse Ox 94 94 96 99 O2 Delivery Nasal Cannula Nasal Cannula Nasal Cannula O2 Flow Rate 5.00 5.00 6.00 6.00 09/29/20 19:17 Pulse Ox 99 O2 Flow Rate 4.00 09/29/20 00:00 Intake Total 790 ml Balance 790 ml Capillary Refill : Less Than 3 Seconds Constitutional: AAO x 3, well-developed, well-nourished HEENT: PERRL, hard of hearing, oral hygience is good Neck: No carotid bruit; carotid pulses are 2 + bilaterally Respiratory: No accessory muscle use, No respiratory distress; chest expansion is symmetric, chest is bilaterally symmetric, other (diminished bases bilat) Cardiovascular: regular rate-rhythm; No JVD; S1 and S2 Gastrointestinal: No tender; soft, round, audible bowel sounds Extremities: no lower extremity edema bilateral Neurologic/Psychiatric: grossly intact (moves all extremities; gen weakness) Skin: No rash on exposed areas, No ulcerations on exposed areas Data Review Labs Laboratory Tests 09/28/20 20:35: White Blood Count 23.1H, Red Blood Count 3.01L, Hemoglobin 9.0L, Hematocrit 29L, Mean Corpuscular Volume 97, Mean Corpuscular Hemoglobin 30, Mean Corpuscular Hemoglobin Concent 31L, Red Cell Distribution Width 19.5H, Platelet Count 307, Mean Platelet Volume 11.2, Immature Granulocyte % (Auto) 2, Neutrophils (%) (Auto) 94H, Lymphocytes (%) (Auto) 2L, Monocytes (%) (Auto) 2, Eosinophils (%) (Auto) 0, Basophils (%) (Auto) 0, Neutrophils # (Auto) 21.6H, Lymphocytes # (Auto) 0.5L, Monocytes # (Auto) 0.6, Eosinophils # (Auto) 0.0, Basophils # (Auto) 0.0, Immature Granulocyte # (Auto) 0.4H, Neutrophils % (Manual) 96, Lymphocytes % (Manual) 3, Monocytes % (Manual) 1, Eosinophils % (Manual) 0, Basophils % (Manual) 0, Band Neutrophils 0, Hypochromasia SLIGHT, Poikilocytosis SLIGHT, Anisocytosis MODERATE, Rouleau SLIGHT, Sodium Level 139, Potassium Level 5.0, Chloride Level 101, Carbon Dioxide Level 28, Anion Gap 10, Blood Urea Nitrogen 53H, Creatinine 1.52H, Estimat Glomerular Filtration Rate 44, BUN/Creatinine Ratio 35, Glucose Level 317H, Lactic Acid Level 2.73*H, Calcium Level 8.0L, Corrected Calcium 9.1, Total Bilirubin 0.5, Aspartate Amino Transf (AST/SGOT) 35H, Alanine Aminotransferase (ALT/SGPT) 95H, Alkaline Phosphatase 119, B-Type Natriuretic Peptide 68.7, Total Protein 5.3L, Albumin 2.6L, Procalcitonin 0.13H 09/28/20 21:13: Glucometer 280H 09/28/20 23:05: Lactic Acid Level 3.37*H 09/29/20 04:50: White Blood Count 16.2H, Red Blood Count 2.54L, Hemoglobin 7.5L, Hematocrit 25L, Mean Corpuscular Volume 97, Mean Corpuscular Hemoglobin 30, Mean Corpuscular Hemoglobin Concent 30L, Red Cell Distribution Width 19.6H, Platelet Count 236, Mean Platelet Volume 11.1, Immature Granulocyte % (Auto) 2, Neutrophils (%) (Auto) 87H, Lymphocytes (%) (Auto) 6L, Monocytes (%) (Auto) 5, Eosinophils (%) (Auto) 0, Basophils (%) (Auto) 0, Neutrophils # (Auto) 14.1H, Lymphocytes # (Auto) 0.9L, Monocytes # (Auto) 0.8, Eosinophils # (Auto) 0.0, Basophils # (Auto) 0.0, Immature Granulocyte # (Auto) 0.2H, Neutrophils % (Manual) 90, Lymphocytes % (Manual) 6, Monocytes % (Manual) 4, Anisocytosis MODERATE, Sodium Level 140, Potassium Level 4.3, Chloride Level 103, Carbon Dioxide Level 28, Anion Gap 9, Blood Urea Nitrogen 51H, Creatinine 1.21, Estimat Glomerular Filtration Rate 58, BUN/Creatinine Ratio 42, Glucose Level 130H, Lactic Acid Level 1.17, Calcium Level 7.2L, Corrected Calcium 8.6, Total Bilirubin 0.4, Aspartate Amino Transf (AST/SGOT) 29, Alanine Aminotransferase (ALT/SGPT) 76H, Alkaline Phosphatase 92, Total Protein 4.3L, Albumin 2.2L, Microcytosis SLIGHT, Macrocytosis SLIGHT, Elliptocytes SLIGHT, Prothrombin Time 19.3H, INR Comment 1.6H 09/29/20 05:17: Glucometer 113H 09/29/20 11:00: Glucometer 112H 09/29/20 15:35: Glucometer 159H Microbiology 09/28/20 Blood Culture - Preliminary, Resulted No growth A/P-Cardiology Assessment/Admission Diagnosis Pneumonia with sepsis - management per Dr Perez and Pulm svce PAF OAC with warfarin Echocardiogram of Sep 28, 2020 showed LVEF 55-65%. 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 Perez Discussion and Recomendations Pneumonia with sepsis management per pulmonary/medical services H/O PAF - EKG today Chronic OAC with warfarin - subtherapeutic - monitor dose closely d/t abx tx - adjust dose as indicated Monitor lab Replace electrolytes as indicated Further recs will be based on his hospital course We would like to thank Dr. Perez for this consult Clinical Quality Measures DVT/VTE Risk/Contraindication: Risk Factor Score Per Nursin RFS Level Per Nursing on Admit: 4+=Very High JENIFFER ROBERT MD FACP FACC CCDS Sep 29, 2020 19:30
[2020-09-29] MEDS: ALPRAZolam 0.25 MG (XANAX) TAB PO SCH (21:46)
[2020-09-30] VITALS (8 sets, daily range): BP systolic 107–142; BP diastolic 53–76
[2020-09-30] MEDS: NS IV 1000 ML 1,000 ML IV SCH (01:09)
[2020-09-30] MEDS: MEROPENEM 500 MG in WATER (STERILE) FOR INJECTION 10 ML IV SCH ×4 (01:09→20:05)
[2020-09-30] MEDS: inSUlin ASPART (NovoLOG) 1 UNIT/0.01 ML (CHARGE PER UNIT) SC SCH ×4 (05:36→22:21)
[2020-09-30 05:47] LABS: BASOPHILS % (AUTO) 0 % (0-10); EOSINOPHILS % (AUTO) 0 % (0-10); HEMATOCRIT 22 % (40-54); LYMPHOCYTES # (AUTO) 0.8 10^3/uL (1.0-4.0); LYMPHOCYTES % (AUTO) 6 % (12-44); MEAN CORPUSCULAR HEMOGLOBIN 29 pg (25-34); MEAN CORPUSCULAR HGB CONC 31 g/dL (32-36); MEAN CORPUSCULAR VOLUME 96 fL (80-99); MONOCYTES # (AUTO) 0.7 10^3/uL (0.0-1.0); MONOCYTES % (AUTO) 5 % (0-12); NEUTROPHILS # (AUTO) 11.4 10^3/uL (1.8-7.8); NEUTROPHILS % (AUTO) 86 % (42-75); PLATELET COUNT 198 10^3/uL (130-400); WHITE BLOOD COUNT 13.2 10^3/uL (4.3-11.0)
[2020-09-30 06:18] LABS: ALBUMIN 2.2 GM/DL (3.2-4.5)
[2020-09-30 06:19] LABS: CHLORIDE 104 MMOL/L (98-107); POTASSIUM 4.3 MMOL/L (3.6-5.0); SODIUM 139 MMOL/L (135-145)
[2020-09-30 06:20] LABS: CALCIUM 7.2 MG/DL (8.5-10.1)
[2020-09-30 06:21] LABS: GLUCOSE 132 MG/DL (70-105); TOTAL PROTEIN 4.1 GM/DL (6.4-8.2)
[2020-09-30 06:22] LABS: CARBON DIOXIDE 27 MMOL/L (21-32)
[2020-09-30 06:23] LABS: BILIRUBIN,TOTAL 0.4 MG/DL (0.1-1.0); INR 1.6 (0.8-1.4); PROTHROMBIN TIME PATIENT 19.9 SEC (12.2-14.7)
[2020-09-30 06:25] LABS: ALKALINE PHOSPHATASE 79 U/L (40-136); CREATININE SERUM 0.95 MG/DL (0.60-1.30); GFR ESTIMATED > 60
[2020-09-30 06:26] LABS: BUN/CREATININE RATIO 52
[2020-09-30 06:28] LABS: ALANINE AMINOTRANSFERASE 65 U/L (0-55)
[2020-09-30 06:29] LABS: HEMOGLOBIN 6.8 g/dL (13.3-17.7)
[2020-09-30] MEDS ORDERED: FUROSEMIDE 40 MG/4 ML INJ (LASIX) IVP ONE (06:45)
[2020-09-30] MEDS ORDERED: NS IV 500 ML 500 ML IV SCH ×2 (06:45)
[2020-09-30] MEDS: RT-ALBUTEROL/IPRATROPIUM 3 ML (DUONEB) VIAL IH SCH ×4 (07:39→19:32)
--- NOTE | 2020-09-30 07:39 | NUR ---
pt would like to eat breakfast. pt refused breathing tx. pt is in no respiratory distress at this time. Addendum: 09/30/20 at 0740 by DEBBIE CARDENAS RT Amended: Links added.
--- NOTE | 2020-09-30 07:45 | NUR ---
Blood drawn from PICC for Type and Crossmatch per orders. Consent obtained for Blood Transfusion.
[2020-09-30] MEDS: MULTIVIT W/MINERALS TAB (THERAGRAN M) PO SCH (09:14)
[2020-09-30] MEDS: NYSTATIN ORAL SUSP 5 ML UDC PO SCH ×4 (09:14→22:32)
[2020-09-30] MEDS: aCETylcysteine 20% (MUCOMYST) 30ML SOLN VIAL PO SCH ×2 (09:14→22:31)
[2020-09-30] MEDS: AMIODARONE 200 MG (CORDARONE) TAB PO SCH ×2 (09:14→22:21)
[2020-09-30] MEDS: methylPREDNISolone 40 MG/ML (Solu-MEDROL) VIAL IV SCH (09:14)
[2020-09-30] MEDS: PANTOPRAZOLE 40 MG (PROTONIX) TAB PO SCH (09:14)
[2020-09-30] MEDS: SILDENAFIL 20 MG (REVATIO) TAB NON-FORMULARY PO SCH ×3 (09:14→22:31)
[2020-09-30] MEDS: FOLIC ACID 1 MG TAB PO SCH (09:14)
[2020-09-30] MEDS: SALIVA STIMULANT MOUTH SPRAY (BIOTENE) 1.5 OZ MM SCH ×3 (09:15→22:36)
[2020-09-30] MEDS: FLUTICASONE NASAL SPRAY (FLONASE) 16 GM BTL NS SCH ×2 (09:15→22:36)
[2020-09-30] MEDS: polyethylene glycoL POWDER 17 GM (MIRALAX) PACK PO SCH ×2 (09:24→20:00)
[2020-09-30] MEDS: SENNA W/DOCUSATE (SENOKOT S) TABLET PO SCH ×2 (09:24→20:00)
[2020-09-30] MEDS: DOCUSATE SODIUM 100 MG (COLACE) CAP PO SCH ×2 (09:24→20:00)
--- NOTE | 2020-09-30 10:03 | Physical Therapy Daily Note ---
PT Daily Note-Current Subjective Patient in bed pre tx, agrees to PT, voices no complaints of pain. Appearance Patient in bed post tx with nurse call, phone, tray, all needs met, laying on left side with pillow support for pressure relief. Mental Status Patient Orientation: Person, Place, Situation Attachments: Oxygen Transfers SCALE: Activities may be completed with or without assistive devices. 2-Aixavenzyw-vssszzw completes the activity by him/herself with no assistance from a helper. 5-Set-up or Clean-up Assistance-helper sets up or cleans up; patient completes activity. [place] assists only prior to or following the activity. 4-Supervision or Touching Assistance-helper provides verbal cues and/or touching/steadying and/or contact guard assistance as patient completes activity. Assistance may be provided throughout the activity or intermittently. 3-Partial/Moderate Assistance-helper does LESS THAN HALF the effort. [place] lifts, holds or supports trunk or limbs, but provides less than half the effort. 2-Substantial/Maximal Assistance-helper does MORE THAN HALF the effort. [place] lifts or holds trunk or limbs and provides more than half the effort. 9-Tiwnbpzqk-wskroy does ALL the effort. Patient does none of the effort to complete the activity. Or, the assistance of 2 or more helpers is required for the patient to complete the activity. If activity was not attempted, code reason: 7-Patient Refused. 9-Not Applicable-not attempted and the patient did not perform the activity b efore the current illness, exacerbation or injury. 10-Not Attempted due to Environmental Limitations-(lack of equipment, weather restraints, etc.). 88-Not Attempted due to Medical Conditions or Safety Concerns. Roll Left & Right (QC): 3 Sit to Lying (QC): 2 Lying to Sitting/Side of Bed(Q: 3 Sit to Stand (QC): 2 Chair/Xaz-br-Criqb Xfer(QC): 2 Patient is a hard max for sit to stand and transfers, he can assist a little with his legs but it is barely felt. Patient needs cleaned while he is in bed, says he is going to have a BM, put on bedpan, has BM, rolling for cleaning and putting new brief on. Supine to sit and then stand pivot to Wheelchair Training Does the Pt Use a Wheelchair?: Yes Wheel 50 ft with 2 turns (QC): 3 Type of Wheelchair: Manual 100'x2, min assist around obstacles or through doorways Exercises Attempted standing in parallel bars and patient could not come to even a half stand. Practiced pre-standing exercise from wheelchair using legs and arms 3 sets of 5 and then 3 sets of 5 chair pushups. Treatments PT worked on rolling, bed mobility and transfers, functional strengthening, WC mobility. OT worked on toileting, cleaning, dressing, UE positioning and safety and strengthening. Assessment Current Status: Poor Progress Patient needs frequent, long, rests to recover from minimal activity. PT Short Term Goals Short Term Goals Time Frame: Oct 05, 2020 Roll Left & Right: 4 Sit to lyin Lying to sitting on side of be: 3 Sit to stand: 2 Chair/afy-wr-qrqry transfer: 2 PT Fdc Goals Quarry Manager Goals PT Quarry Manager Goals Time Frame: Oct 19, 2020 Roll Left & Right (QC): 6 Sit to Lying (QC): 6 Lying-Sitting on Side/Bed(QC): 6 Sit to Stand (QC): 3 Chair/Ulq-hp-Wwehe Xfer(QC): 3 Toilet Transfer (QC): 3 Car Transfer (QC): 1 Does the Patient Walk: Yes Walk 10 feet (QC): 3 Walk 50ft with 2 Turns (QC): 88 Walk 150 ft (QC): 88 Walking 10ft on Uneven Surface: 88 1 Step (curb) (QC): 88 4 Steps (QC): 88 12 Steps (QC): 88 Picking up an Object (QC): 88 Wheel 50 feet with 2 turns (QC: 4 Wheel 150 feet: 4 PT Plan Problem List Problem List: Activity Tolerance, Functional Strength, Safety, Balance, Gait, Transfer, Bed Mobility, ROM Treatment/Plan Treatment Plan: Continue Plan of Care Treatment Plan: Bed Mobility, Education, Functional Activity [place], Functional Strength, Group Therapy, Gait, Safety, Therapeutic Exercise, Transfers Treatment Duration: Oct 19, 2020 Frequency: At least 5 of 7 days/Wk (IRF) Estimated Hrs Per Day: 1.5 hours per day Patient and/or Family Agrees t: Yes Safety Risks/Education Patient Education: Transfer Techniques, Correct Positioning, W/C Management, Safety Issues Teaching Recipient: Patient Teaching Methods: Demonstration, Discussion Response to Teaching: Reinforcement Needed Time/GCodes Time In: 0900 Time Out: 1000 Total Billed Treatment Time: 60 Total Billed Treatment 1 visit EX 20' FA 40' co-treated for 60' JOSE,CLAYTON PT Sep 30, 2020 10:03
--- NOTE | 2020-09-30 10:12 | Diagnostic Imaging Report ---
INDICATION: Wheeze. TECHNIQUE: Single view chest 8:39 AM. CORRELATION STUDY: 09/29/2020 FINDINGS: Heart size remains enlarged. Vasculature appears slightly more prominent. Left upper extremity central line tip over the right para mediastinal region, stable. Extensive, groundglass opacities throughout both lung holguin, left slightly greater than right, have overall increased from previous. Probable small effusions. IMPRESSION: 1. Extensive bilateral pulmonary infiltrates persist and overall appearing slightly more prominent and increased from prior. Small effusions are also present. Dictated by: Dictated on workstation # [id number]
--- NOTE | 2020-09-30 10:24 | Occupational Ther Daily Note ---
OT Current Status-Daily Note Subjective Pt laying in bed, agreeable to OT tx, no c/o pain. Mental Status/Objective Patient Orientation: Person, Place, Time, Situation Attachments: Oxygen ADL-Treatment Therapy Code Descriptions/Definitions Functional [place] Measure: 0=Not Assessed/NA 4=Minimal Assistance 1=Total Assistance 5=Supervision or Setup 2=Maximal Assistance 6=Modified [place] 3=Moderate Assistance 7=Complete IndependenceSCALE: Activities may be completed with or without assistive devices. 5-Xmiasqpxvv-uhsozen completes the activity by him/herself with no assistance from a helper. 5-Set-up or Clean-up Assistance-helper sets up or cleans up; patient completes activity. [place] assists only prior to or following the activity. 4-Supervision or Touching Assistance-helper provides verbal cues and/or touching/steadying and/or contact guard assistance as patient completes activity. Assistance may be provided throughout the activity or intermittently. 3-Partial/Moderate Assistance-helper does LESS THAN HALF the effort. [place] lifts, holds or supports trunk or limbs, but provides less than half the effort. 2-Substantial/Maximal Assistance-helper does MORE THAN HALF the effort. [place] lifts or holds trunk or limbs and provides more than half the effort. 6-Utxumcbeq-otbfse does ALL the effort. Patient does none of the effort to complete the activity. Or, the assistance of 2 or more helpers is required for the patient to complete the activity. If activity was not attempted, code reason: 7-Patient Refused. 9-Not Applicable-not attempted and the patient did not perform the activity before the current illness, exacerbation or injury. 10-Not Attempted due to Environmental Limitations-(lack of equipment, weather restraints, etc.). 88-Not Attempted due to Medical Conditions or Safety Concerns. Lower Body Dressing (QC): 1 (OT dependently changed soiled brief at bed level, mod A for rolling side to side.) On/Off Footwear: 1 (total assist donning TEDhose and gripper socks.) Toileting Hygiene (QC): 1 (Total assist at bed level to change soiled brief and perform hygiene. Mod A with rolling side to side.) Other Treatment OT/PT cotreat due to skill of 2 clinicians required that a plasma center technician could not perform in order to coordinate UE/LE and due to pt's limitations in strength, functional mobility, endurance, and transfers. OT focused on ADLS, UE placement, cues for sequencing and safety, while PT focused on LE placement, gross overall movements, and transfers. Pt rolled side to side in bed to change brief, pt indicates he needs to have BM, placed on bed mckinney. OT then performed hygiene and donned clean brief, applying barrier cream per nursing instruction. Pt transferred supine to sit, assistance with trunk and LEs. Pt then transferred to w/c with a hard max A stand pivot transfer. Pt self-propelled w/c to gym and to parallel bars. Attempt sit to stand at bars, but unable to fully stand. 3x5 pre- standing exercise using UEs and LEs, then 3x5 chair pushups (unable to lift buttocks from chair). Pt required extensive rest breaks between exercises. Pt self-propelled w/c back to room, transferring back to bed hard max A SPT. Post cotreat, pt laying in bed, call light in reach and all needs met. Education OT Patient Education: Correct positioning, Energy conservation, Exercise program, Modified ADL techniques, Progress toward Goal/Update tx plan, Purpose of tx/functional activities Teaching Recipient: Patient Teaching Methods: Discussion Response to Teaching: Verbalize Understanding OT Short Term Goals Short Term Goals Time Frame: Oct 10, 2020 Toileting hygiene: 2 Shower/bathe self: 2 Lower body dressin Putting on/taking off footwear: 2 OT Customs Guard Goals Long-Term Goals Time Frame: Oct 21, 2020 Eating (QC): 6 Oral Hygiene (QC): 6 Toileting Hygiene (QC): 4 Shower/Bathe Self (QC): 4 Upper Body Dressing (QC): 5 Lower Body Dressing (QC): 4 On/Off Footwear (QC): 4 1=Demonstrate adherence to instructed precautions during ADL tasks. 2=Patient will verbalize/demonstrate understanding of assistive devices/modifications for ADL. 3=Patient will improve strength/tolerance for activity to enable patient to perform ADL's. OT Education/Plan Problem List/Assessment Assessment: Decreased Activ Tolerance, Decreased UE Strength, Impaired Bed Mobility, Impaired Funct Balance, Impaired I ADL's, Impaired Self-Care Skills Discharge Recommendations Plan/Recommendations: Continue POC Treatment Plan/Plan of Care Patient would benefit from OT for education, treatment and training to promote independence in ADL's, mobility, safety and/or upper extremity function for ADL's. Plan of Care: ADL Retraining, Functional Mobility, Group Exercise/Act as Ind, UE Funct Exercise/Act Treatment Duration: Oct 21, 2020 Frequency: At least 5 of 7 days/Wk (IRF) Estimated Hrs Per Day: 1.5 hours per day Agreement: Yes Rehab Potential: Fair Time/GCodes Start Time: 09:00 Stop Time: 10:00 Total Time Billed (hr/min): 60 Billed Treatment Time Cot[place] x60' 1, ADL (15'), FA 3 (45') ALEXUS PACHECO OT Sep 30, 2020 10:24
--- NOTE | 2020-09-30 10:56 | Progress Note - Cardiology ---
Cardiology SOAP Progress Note Subjective: Lying in bed. Denies SOB, CP or palpitations. C/O feeling cold this morning. Objective: I&O/Vital Signs 10/05/20 10/05/20 10/05/20 10/05/20 06:10 06:35 06:55 07:00 Temp 36.4 Pulse 73 76 Resp 20 B/P (MAP) 115/56 (75) Pulse Ox 92 92 O2 Delivery High Flow N/C High Flow N/C O2 Flow Rate 8.00 8.00 8.00 10/05/20 10/05/20 09:00 12:28 Pulse 81 O2 Delivery Nasal Cannula O2 Flow Rate 8.00 10/05/20 00:00 Intake Total 1160 ml Balance 1160 ml Constitutional: AAO x 3, well-developed, well-nourished Respiratory: No accessory muscle use, No respiratory distress; chest expansion is symmetric, chest is bilaterally symmetric, other (diminished bases bilat) Cardiovascular: regular rate-rhythm; No JVD; S1 and S2 Gastrointestional: No tender; soft, round, audible bowel sounds Extremities: no lower extremity edema bilateral Neurologic/Psychiatric: grossly intact (moves all extremities; gen weakness) Skin: No rash on exposed areas, No ulcerations on exposed areas Results/Procedures: Labs Laboratory Tests 10/04/20 20:34: Glucometer 338H 10/05/20 06:03: Glucometer 102 10/05/20 06:20: White Blood Count 14.3H, Red Blood Count 3.08L, Hemoglobin 9.2L, Hematocrit 30L, Mean Corpuscular Volume 96, Mean Corpuscular Hemoglobin 30, Mean Corpuscular Hemoglobin Concent 31L, Red Cell Distribution Width 18.5H, Platelet Count 141, Mean Platelet Volume 10.3, Immature Granulocyte % (Auto) 1, Neutrophils (%) (Auto) 87H, Lymphocytes (%) (Auto) 6L, Monocytes (%) (Auto) 6, Eosinophils (%) (Auto) 0, Basophils (%) (Auto) 0, Neutrophils # (Auto) 12.4H, Lymphocytes # (Auto) 0.8L, Monocytes # (Auto) 0.9, Eosinophils # (Auto) 0.1, Basophils # (Auto) 0.0, Immature Granulocyte # (Auto) 0.1, Prothrombin Time 26.7H, INR Co mment 2.4H, Sodium Level 142, Potassium Level 3.6, Chloride Level 109H, Carbon Dioxide Level 26, Anion Gap 7, Blood Urea Nitrogen 29H, Creatinine 0.78, Estimat Glomerular Filtration Rate > 60, BUN/Creatinine Ratio 37, Glucose Level 100, Calcium Level 7.3L, Corrected Calcium 8.7, Total Bilirubin 0.5, Aspartate Amino Transf (AST/SGOT) 32, Alanine Aminotransferase (ALT/SGPT) 65H, Alkaline Phosphatase 84, Total Protein 4.3L, Albumin 2.2L 10/05/20 10:49: Glucometer 151H 10/05/20 12:24: Blood Gas Puncture Site RT BRACH, Blood Gas Patient Temperature 36.0, Arterial Blood pH 7.40, Arterial Blood Partial Pressure CO2 43, Arterial Blood Partial Pressure O2 49L, Arterial Blood HCO3 26, Arterial Blood Total CO2 27.6, Arterial Blood Oxygen Saturation 84L, Arterial Blood Base Excess 1.7, Iker Test YES-POS, Blood Gas Ventilator Setting NO, Blood Gas Inspired Oxygen 12 L Microbiology 10/02/20 MRSA Screen - Final, Complete MRSA not isolated 09/28/20 Blood Culture - Final, Complete No growth Procedures NAME: SHELLEY ARRIETA Carlitos ROMERO REC#: [id number] PT STATUS: ADM IN : 1940 PHYSICIAN: SAEID JONES DO ADMIT DATE: 09/28/20/[facility] Draft Date of Exam:09/30/20 CHEST 1 VIEW, AP/PA ONLY INDICATION: Wheeze. TECHNIQUE: Single view chest 8:39 AM. CORRELATION STUDY: 09/29/2020 FINDINGS: Heart size remains enlarged. Vasculature appears slightly more prominent. Left upper extremity central line tip over the right para mediastinal region, stable. Extensive, groundglass opacities throughout both lung holguin, left slightly greater than right, have overall increased from previous. Probable small effusions. IMPRESSION: 1. Extensive bilateral pulmonary infiltrates persist and overall appearing slightly more prominent and increased from prior. Small effusions are also present. Dictated on workstation # [id number] Dict: 09/30/20 1003 Trans: 09/30/20 1012 VANDANA [id number] Interpreted by: JOSE WITT DO Electronically signed by: A/P: Assessment: Pneumonia with sepsis - management per Dr Jones and Pulm svce Anemia of undetermined etiology - management per medical services PAF EKG of 09-29-2020 showed RBBB of unknown length of time OAC with warfarin Echocardiogram of Sep 28, 2020 showed LVEF 55-65%. 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 Jones Plan: Pneumonia with sepsis management per pulmonary/medical services Anemia of undetermined etiology - receiving PRBC transfusion this morning - advise consult with GI services for consideration of endoscopy Chronic OAC with warfarin - subtherapeutic - monitor dose closely d/t abx tx - adjust dose as indicated Monitor lab Replace electrolytes as indicated There is no cardiology coverage over the weekend. Refer to primary care attending. If emergent cardiac services are need will require transfer to tertiary care facility, to be decided by primary care attending. VERONICA POST Sep 30, 2020 10:56
--- NOTE | 2020-09-30 12:02 | PM&R Progress Note ---
Subjective HPI/CC On Admission Date Seen by Provider: Sep 30, 2020 Time Seen by Provider: 05:30 Subjective/Events-last exam 09/30/2020: Hemoglobin 6.8 and patient very symptomatic so we will transfuse 2 units with Lasix in between the units to prevent overload Still requiring [address] scan reviewed Patient had a better night sleep Denies any significant new issues Antibiotics maintain We will stop IV fluids Check meds and labs 09/29/20: Very complex issues overnight Reviewed chest x-ray done earlier in the day and it showed bilateral infiltrates and considering he had a Covid-like illness that prompted the hospital stay 1 month ago and considering his continued hypoxia managed with Lasix and steroids at [facility] I went ahead and did the sepsis work-up which revealed elevated lactic acid but not likely due to pneumonia but likely dehydration and volume depletion since he had thrush and was not eating or drinking well Covered him with broad-spectrum antibiotics Consulted Dr. Gamble Consulted Dr. Alanis IV fluids initiated Check echocardiogram Conferred with RN Reviewed therapy notes Check meds and labs Review of Systems General: Fatigue, Malaise Pulmonary: Dyspnea, Cough Neurological: Weakness, Incoordination Focused Exam Lactate Level 09/28/20 20:35: Lactic Acid Level 2.73*H 09/28/20 23:05: Lactic Acid Level 3.37*H 09/29/20 04:50: Lactic Acid Level 1.17 Objective Exam Vital Signs Vital Signs Date Time Temp Pulse Resp B/P (MAP) Pulse Ox O2 Delivery O2 Flow Rate FiO2 09/30/20 16:53 37.1 89 18 136/62 91 High Flow N/C 6.00 09/28/20 19:10 94 Capillary Refill : Less Than 3 Seconds General Appearance: No Apparent Distress, WD/WN, Chronically ill HEENT: PERRL/EOMI, Normal ENT Inspection, Pharynx Normal Neck: Full Range of Motion, Normal Inspection, Non Tender, Supple, Carotid Bruit Respiratory: Chest Non Tender, No Accessory Muscle Use, No Respiratory Distress, Decreased Breath Sounds Cardiovascular: Regular Rate, Rhythm, No Edema, No Gallop, No JVD, No Murmur, Normal Peripheral Pulses Gastrointestinal: Normal Bowel Sounds, No Organomegaly, No Pulsatile Mass, Non Tender, Soft Back: Normal Inspection, No CVA Tenderness, No Vertebral Tenderness Extremity: Normal Capillary Refill, Normal Inspection, Normal Range of Motion, Non Tender, No Calf Tenderness, No Pedal Edema Neurologic/Psychiatric: Alert, Oriented x3, Normal Mood/Affect, meter attendant II-XII Norm as Tested, Abnormal Gait, Depressed Affect, Motor Weakness (severe 3/5 all extremities) Skin: Normal Color, Warm/Dry Lymphatic: No Adenopathy Results/Procedures Lab Laboratory Tests 09/30/20 05:33 Patient resulted labs reviewed. FIM Transfers Therapy Code Descriptions/Definitions Functional [place] Measure: 0=Not Assessed/NA 4=Minimal Assistance 1=Total Assistance 5=Supervision or Setup 2=Maximal Assistance 6=Modified [place] 3=Moderate Assistance 7=Complete IndependenceSCALE: Activities may be completed with or without assistive devices. 6-Mwuvntyrpa-xhnqkla completes the activity by him/herself with no assistance from a helper. 5-Set-up or Clean-up Assistance-helper sets up or cleans up; patient completes activity. [place] assists only prior to or following the activity. 4-Supervision or Touching Assistance-helper provides verbal cues and/or touching/steadying and/or contact guard assistance as patient completes activity. Assistance may be provided throughout the activity or intermittently. 3-Partial/Moderate Assistance-helper does LESS THAN HALF the effort. [place] lifts, holds or supports trunk or limbs, but provides less than half the effort. 2-Substantial/Maximal Assistance-helper does MORE THAN HALF the effort. [place] lifts or holds trunk or limbs and provides more than half the effort. 0-Tcytmqiyl-jqiiut does ALL the effort. Patient does none of the effort to complete the activity. Or, the assistance of 2 or more helpers is required for the patient to complete the activity. If activity was not attempted, code reason: 7-Patient Refused. 9-Not Applicable-not attempted and the patient did not perform the activity before the current illness, exacerbation or injury. 10-Not Attempted due to Environmental Limitations-(lack of equipment, weather restraints, etc.). 88-Not Attempted due to Medical Conditions or Safety Concerns. Roll Left to Right (QC): 3 Sit to Lying (QC): 2 Sit to Stand (QC): 2 Chair/Ndx-dj-Vfqjq Xfer(QC): 2 Car Transfer (QC): 1 Gait Training Does the Patient Walk?: No and Walking Goal IS indicated Walk 10 feet (QC): 3 Walk 50 ft with 2 Turns(QC): 88 Walk 150 ft (QC): 88 Walking 10ft/uneven surface-QC: 88 Wheelchair Training Does the Pt Use a Wheelchair?: Yes Wheel 50 ft with 2 turns (QC): 3 Wheel 150 ft (QC): 1 Type of Wheelchair: Manual Stair Training 1 Step (curb) (QC): 88 4 Steps (QC): 88 12 Steps (QC): 88 Balance Picking up an Object (QC): 88 ADL-Treatment Eating (QC): 6 (Pt indicates independent with feeding. No difficulty with lunch, able to cut his food, use utensils, and bring food/drink to mouth.) Oral Hygiene (QC): 5 (set up at bed level) Shower/Bathe Self (QC): 2 (Sponge bath max A, pt able to wash arms, miles st/stomach, required assistance for thoroughness. OT washed all other parts.) Upper Body Dressing (QC): 3 ([place]) Lower Body Dressing (QC): 1 (OT dependently changed soiled brief at bed level, mod A for rolling side to side.) On/Off Footwear (QC): 1 (total assist donning TEDhose and gripper socks.) Toileting Hygiene (QC): 1 (Total assist at bed level to change soiled brief and perform hygiene. Mod A with rolling side to side.) Assessment/Plan Assessment and Plan Assess & Plan/Chief Complaint Assessment: COPD myopathy Hypoxia Abnormal CXR Thrush Coumadin treatment Respiratory failure DM GERD PHTN Plan: Check INR IRF protocol Dr Alanis and Dr Gamble consulted 09/29/20: Broad-spectrum antibiotics Pulmonology consultation Check labs Monitor oxygen level Monitor closely 09/30/20: Transfused 2 units of blood Hep-Lock IV fluid to prevent overload Lasix in between the blood Monitor oxygen level Maintain antibiotics Very complex issues (1) Myopathy (2) Atrial fibrillation (3) Warfarin anticoagulation (4) Diabetes mellitus (5) COPD (chronic obstructive pulmonary disease) (6) Hypoxemia (7) Volume overload (8) SAEID Melchor DO Sep 30, 2020 12:02
--- NOTE | 2020-09-30 12:02 | Individualized Plan of Care ---
Individualized Plan of Care Rehab Nursing IPOC Order Admission Date Sep 28, 2020 at 11:25 Current Orders Orders Admission Order(Inpt,Obs,Sdc) (09/28/20 09:43) Vital Signs: Per Unit Policy ( 08,16,00 (09/28/20 09:43) Richardson Felix 09,21 (09/28/20 09:43) Sequential Compression Device Q4H (09/28/20 09:43) Acting Section Chief-Inpt Rehab Con (09/28/20 09:43) Rehab Nursing Orders-Ipoc (09/28/20 09:43) Physical Therapy Rehab Orders (09/28/20 09:43) Occupational Therapy Rehab Ord (09/28/20 09:43) Speech Therapy Rehab Orders (09/28/20 09:43) Cbc With Automated Diff (09/29/20 06:00) Comprehensive Metabolic Panel (09/29/20 06:00) Intake & Output 06,14,22 (09/28/20 09:43) Precautions (Aru) (09/28/20 09:43) Rehab-Intensity Of Therapy (09/28/20 09:43) Initiate Admission Nursing Pro .admission (09/28/20 09:43) Acetaminophen Tablet (Tylenol Tablet) (09/28/20 09:45) Alprazolam Tablet (Xanax Tablet) (09/28/20 09:45) Calcium Carbonate Chew Tablet (Antacid C (09/28/20 09:45) Diphenhydramine Tablet (Benadryl Tablet) (09/28/20 09:45) Docusate Sodium Capsule (Colace Capsule) (09/28/20 21:00) Docusate Sodium Capsule (Colace Capsule) (09/28/20 09:45) Bisacodyl Suppository (Dulcolax Supposit (09/28/20 09:45) Lactulose Oral Solution (Enulose Oral So (09/28/20 09:45) Na Phos/Na Biphos Enema (Fleet Enema Erik (09/28/20 09:45) Guaifenesin/Codeine Syrup (Robitussin Ac (09/28/20 09:45) Loperamide Tablet (Imodium Tablet) (09/28/20 09:45) Melatonin Tablet (Melatonin Tablet) (09/28/20 09:45) Polyethylene Glycol Powder Pkt (Miralax (09/28/20 21:00) Ondansetron Oral Dissolve Tab (Zofran (09/28/20 09:45) Senna S Tablet (Senokot S Tablet) (09/28/20 21:00) Initiate Admission Nursing Pro .admission (09/28/20 09:43) Admission Arrival Bed Request (09/28/20 11:29) Patient Visit (09/28/20 ) Pt Eval Moderate Complexity (09/28/20 ) Functional Activities, Ea 15 (09/28/20 ) Patient Visit (09/28/20 ) Speech Sound Lang Comp (09/28/20 ) Ambulate , (09/28/20 14:43) Sequential Compression Device Q4H (09/28/20 14:43) Dvt/Vte Risk - Notifiy Physici Q4H (09/28/20 14:43) Cho 60g/M 3snack (16-2000 Kp) (09/28/20 Lunch) Albuterol Pre-Mix Nebs (Rt) (Proventil (09/28/20 15:15) Alprazolam Tablet (Xanax Tablet) (09/28/20 21:00) Amiodarone Tablet (Cordarone Tablet) (09/28/20 21:00) D50w (Emergency) Syringe (Dextrose 50% 5 (09/28/20 15:15) Furosemide Injection (Lasix Injection) (09/28/20 17:00) Albuterol/Ipra Inhalation Soln (Duoneb I (09/28/20 19:00) Albuterol/Ipra Inhalation Soln (Duoneb I (09/28/20 15:15) Albuterol/Ipra Inhalation Soln (Duoneb I (09/28/20 15:15) Methylprednisolone Sod Succ (Solu-Medrol (09/29/20 09:00) Therapeutic Multivitamin Tab (Vitamins, (09/29/20 08:00) Nystatin Oral Suspension (Mycostatin O (09/28/20 17:00) Pantoprazole Tablet (Protonix Tablet) (09/29/20 09:00) Warfarin Tablet (Coumadin Tablet) (09/28/20 17:00) (Nf) Acetaminophen (Tylenol Arthritis) (09/28/20 15:15) (Nf) Acetylcysteine (Nac) (09/28/20 21:00) (Nf) Fluticasone Propionate (Flonase All (09/28/20 21:00) (Nf) Fluticasone/Vilanterol (Breo Ellipt (09/29/20 09:00) (Nf) Insulin Glargine,Hum.Rec.Anlog (Gilbert (09/29/20 07:00) (Nf) Ondansetron Hcl (09/28/20 15:15) (Nf) Saliva Substitution Combo No.9 (Bio (09/28/20 21:00) (Nf) Sildenafil Citrate (Revatio) (09/28/20 21:00) (Nf) Ubidecarenone (Co Q-10) (09/29/20 09:00) (Nf) [Folic Acid] (09/29/20 09:00) Svn Small Volume Nebulizer (09/28/20 15:03) Accucheck Achs ACHS (09/28/20 15:05) Insulin Aspart (Novolog) (Novolog (Charg (09/28/20 16:00) Protime With Inr (09/29/20 06:00) Consult Pulmonology (09/28/20 15:06) Consult Cardiology (09/28/20 15:06) Chest 1 View, Ap/Pa Only (09/28/20 15:06) Echo W Doppler/Color Flow (09/28/20 15:06) Ondansetron Injection (Zofran Injectio (09/28/20 15:15) Insulin Determir (Per Unit) (Levemir (Pe (09/29/20 07:00) Acetaminophen Tablet/Caplet (Tylenol T (09/28/20 15:30) Folic Acid Tablet (Folic Acid Tablet) (09/29/20 09:00) Fluticasone Nasal [place] (Flonase Nasal S (09/28/20 21:00) Fluticasone/Salmeterol 115/21 (Advair Hf (09/29/20 08:00) Saliva Stimulant Mouth [place] (Biotene Mo (09/28/20 21:00) Sildenafil Tablet (Non-Form) (Revatio Ta (09/28/20 21:00) Acetylcysteine (Rt Or Po Use) (Mucomyst (09/28/20 21:00) Patient Visit (09/28/20 ) Exercise Therap, Ea 15 Min (09/28/20 ) Functional Activities, Ea 15 (09/28/20 ) Cbc With Automated Diff (09/28/20 20:03) Comprehensive Metabolic Panel (09/28/20 20:03) Lactic Acid Analyzer (09/28/20 20:03) Procalcitonin (Pct) (09/28/20 20:03) BNP (09/28/20 20:03) Albuterol/Ipra Inhalation Soln (Duoneb I (09/29/20 07:00) Manual Differential (09/28/20 20:35) Ns Iv 1000 Ml (Sodium Chloride 0.9%) (09/28/20 21:45) Vancomycin Injection (Vancomycin Injecti (09/28/20 21:45) Blood Culture (09/28/20 21:38) Blood Culture (09/28/20 22:38) Ns Iv 1000 Ml (Sodium Chloride 0.9%) (09/28/20 21:41) Vancomycin Injection (Vancomycin Injecti (09/28/20 23:00) Meropenem (Merrem 500 Mg) (09/28/20 22:30) Water (Sterile) For Injection (Sterile W (09/28/20 22:16) Meropenem (Merrem 500 Mg) (09/28/20 22:17) Vancomycin Injection (Vancomycin Injecti (09/28/20 22:27) Ns (Ivpb) (Sodium Chloride 0.9%) (09/28/20 22:27) Albumin 25% 25 Gm/100 Ml (Albumin 25% 25 (09/29/20 07:45) Manual Differential (09/29/20 04:50) Vancomycin Injection (Vancomycin Injecti (09/29/20 11:00) Trough Order (Trough Order-Pharmacy Orde (10/01/20 12:00) Vancomycin,Trough (10/01/20 12:00) Venous Access Request Order (09/29/20 09:24) Chest 1 View, Ap/Pa Only (09/29/20 10:16) Ekg Tracing (09/29/20 11:08) Warfarin Tablet (Coumadin Tablet) (09/29/20 17:00) Ct Angio Chest W (09/29/20 12:11) Iohexol Injection (Omnipaque 350 Mg/Ml 1 (09/29/20 12:30) Received Contrast (Hold Metformin- Contr (09/29/20 12:30) Ns (Ivpb) (Sodium Chloride 0.9% Ivpb Bag (09/29/20 12:30) Chest 1 View, Ap/Pa Only (09/29/20 12:57) Meropenem (Merrem 500 Mg) (09/29/20 13:30) Vancomycin Injection (Vancomycin Injecti (09/30/20 13:00) Cath [id number] 5fr (09/29/20 ) Amb Us Guide Vascular Access (09/29/20 ) Patient Visit (09/29/20 ) Functional Activities, Ea 15 (09/29/20 ) Patient Visit (09/29/20 ) Exercise Therap, Ea 15 Min (09/29/20 ) Cbc With Automated Diff (09/30/20 06:00) Comprehensive Metabolic Panel (09/30/20 06:00) Protime With Inr (09/30/20 06:00) Procalcitonin (Pct) (09/30/20 06:00) Vital Signs: Special (Order) (09/30/20 06:39) Consent-Obtain Consent For (09/30/20 06:39) Monitor S/S Transfusion Reacti (09/30/20 06:39) Ns Iv 500 Ml (Sodium Chloride 0.9%) (09/30/20 06:45) Furosemide Injection (Lasix Injection) (09/30/20 06:45) Type And Screen (09/30/20 06:39) Red Cells Leukocytes Reduced (09/30/20 06:39) Ns Iv 500 Ml (Sodium Chloride 0.9%) (09/30/20 06:45) Cbc With Automated Diff (10/01/20 06:00) Comprehensive Metabolic Panel (10/01/20 06:00) Protime With Inr (10/01/20 06:00) Iron Test (Fe) (09/30/20 06:39) Chest 1 View, Ap/Pa Only (09/30/20 06:39) Occult Blood Stool (09/30/20 10:53) Telemetry (09/30/20 10:54) Telemetry Nursing Assessment ( (09/30/20 10:54) Transfer - Bed/Room/Location (09/30/20 11:32) Furosemide Injection (Lasix Injection) (09/30/20 12:45) Patient Visit (09/30/20 ) Functional Activities, Ea 15 (09/30/20 ) Exercise Therap, Ea 15 Min (09/30/20 ) Patient Visit (09/30/20 ) Exercise Therap, Ea 15 Min (09/30/20 ) Functional Activities, Ea 15 (09/30/20 ) Rehab Nursing Orders: Ongoing Assess. of Cognitive Status, Ongoing Assess. of Function Status, Bladder Management, Bladder Scan, Bladder Training, Bowel Management, Bowel Training, Disease Management & Educaiton, DVT Prophylaxis, Fall Prevention, Fluid/Electrolyte/Nutrition Mgmt, Infection Prevention, Medication Management & Education, Management of Risks & Complications, Manage ment of Skin Intergrity, Nutrition Management, Pain Management, Patient/Family Support, Safety Management, Swallow Precautions Intensity of Therapy to be met Patient to be seen: Min.3h per day/5 of 7d PT IPOC Problem List: Activity Tolerance, Functional Strength, Safety, Balance, Gait, Transfer, Bed Mobility, ROM Treatment Plan: Continue Plan of Care Bed Mobility, Education, Functional Activity [place], Functional Strength, Group Therapy, Gait, Safety, Therapeutic Exercise, Transfers Treatment Duration: Oct 19, 2020 Frequency: At least 5 of 7 days/Wk (IRF) Estimated Hrs Per Day: 1.5 hours per day OT IPOC Problems: Decreased Activ Tolerance, Decreased UE Strength, Impaired Bed Mobility, Impaired Funct Balance, Impaired I ADL's, Impaired Self-Care Skills OT Treatment, Training and Edu: Yes Plan of Care: ADL Retraining, Functional Mobility, Group Exercise/Act as Ind, UE Funct Exercise/Act Treatment Duration: Oct 21, 2020 Frequency: At least 5 of 7 days/Wk (IRF) Estimated Hrs Per Day: 1.[address] IPOC Speech Therapy Treatment Plan: Discontinue ST Treatment Duration: Sep 28, 2020 Frequency: 1 time per week Estimated Hrs Per Day: .5 hour per day Acting Section Chief/Case Mgmt Acting Section Chief/Case Managemen: Discharge Planning Dietitian/Senior Category Manager Dietitian/Senior Category Manager to monitor nutritional status and make changes and/or recommendations as needed and work with speech pathology on dietary upgrades as the occur. Physician IPOC Medical Issues being managed closely and that require the 24 hour availability of a physician: Recent lengthy stay at [facility] after [facility] in [place] for acute on chronic respiratory failure episode which was Cov id negative but showed appearance of catastrophic injury to the lungs similar to Covid now with acute pneumonia with abnormal CT scan requiring aggressive treatment Medical Issues: Bowel/Bladder Function, DVT Prophylaxis, Falls Precautions, Fluid/Electrolyte/Nutrition Balance, Infection Protection, Pain Management Brief Synthesis of Preadmission Screen, Post-Admission Evaluation, and Therapy Evaluations: PT and OT will focus on regaining ambulatory skills along with wean of oxygen and teach energy conservation along with close monitoring of lung function in order to return to live independently Medical Prognosis: Guarded Anticipated Length of Stay: 14 days SAEID JONES DO Sep 30, 2020 12:02
[2020-09-30] MEDS ORDERED: FUROSEMIDE 40 MG/4 ML INJ (LASIX) IVP NR (12:45)
[2020-09-30] MEDS: VANCOMYCIN 1500 MG/NS 500 ML IVPB IV SCH ×2 (13:03)
--- NOTE | 2020-09-30 14:51 | Physical Therapy Daily Note ---
PT Daily Note-Current Subjective Pt. sitting up in bed eating lunch, states he is so fatigued . Pt. agrees to bed mobility and bed exercises as he can tolerate. Nurse in out during Rx as blood transfusion to begin Pain Location: No Pain Reported Mental Status Patient Orientation: Normal For Age Attachments: IV Transfers SCALE: Activities may be completed with or without assistive devices. 8-Pnmtrwnmcc-hnlfokd completes the activity by him/herself with no assistance from a helper. 5-Set-up or Clean-up Assistance-helper sets up or cleans up; patient completes activity. [place] assists only prior to or following the activity. 4-Supervision or Touching Assistance-helper provides verbal cues and/or touching/steadying and/or contact guard assistance as patient completes activity. Assistance may be provided throughout the activity or intermittently. 3-Partial/Moderate Assistance-helper does LESS THAN HALF the effort. [place] lifts, holds or supports trunk or limbs, but provides less than half the effort. 2-Substantial/Maximal Assistance-helper does MORE THAN HALF the effort. [place] lifts or holds trunk or limbs and provides more than half the effort. 5-Pzgzyqhvf-tbqcnz does ALL the effort. Patient does none of the effort to complete the activity. Or, the assistance of 2 or more helpers is required for the patient to complete the activity. If activity was not attempted, code reason: 7-Patient Refused. 9-Not Applicable-not attempted and the patient did not perform the activity before the current illness, exacerbation or injury. 10-Not Attempted due to Environmental Limitations-(lack of equipment, weather restraints, etc.). 88-Not Attempted due to Medical Conditions or Safety Concerns. Roll Left & Right (QC): 3 Exercises Supine Ex: Ankle pumps, Quad Set, Rolling, Heel Slides, Short Arc Quads, Scooting (assisted up in bed), Straight leg raise (assisted), Hip abd/add (assisted) Supine Reps: 7 (x2) Treatments pt. sitting up in bed to eat taking breaks, consuming food slowly , finishing just as therapist arrives. pt. with some coughing, Nurse communicates that pts. hgb is 6.8 and he will be receiving blood, BP, HR and O2sats monitored during exercise. Pt required rest breaks as sats drop to 87% with only 5 reps of LE exercise, O2 2 L, rolling and exercise taking some time as pt needed rest breaks. Assessment Current Status: Fair Progress gives full effort PT Short Term Goals Short Term Goals Time Frame: Oct 05, 2020 Roll Left & Right: 4 Sit to lyin Lying to sitting on side of be: 3 Sit to stand: 2 Chair/txa-kv-skipr transfer: 2 PT Office Machine Inspector Goals Chcf Goals PT Chcf Goals Time Frame: Oct 19, 2020 Roll Left & Right (QC): 6 Sit to Lying (QC): 6 Lying-Sitting on Side/Bed(QC): 6 Sit to Stand (QC): 3 Chair/Qha-bu-Pwjol Xfer(QC): 3 Toilet Transfer (QC): 3 Car Transfer (QC): 1 Does the Patient Walk: Yes Walk 10 feet (QC): 3 Walk 50ft with 2 Turns (QC): 88 Walk 150 ft (QC): 88 Walking 10ft on Uneven Surface: 88 1 Step (curb) (QC): 88 4 Steps (QC): 88 12 Steps (QC): 88 Picking up an Object (QC): 88 Wheel 50 feet with 2 turns (QC: 4 Wheel 150 feet: 4 PT Plan Treatment/Plan Treatment Plan: Continue Plan of Care Treatment Plan: Bed Mobility, Education, Functional Activity [place], Functional Strength, Group Therapy, Gait, Safety, Therapeutic Exercise, Transfers Treatment Duration: Oct 19, 2020 Frequency: At least 5 of 7 days/Wk (IRF) Estimated Hrs Per Day: 1.5 hours per day Patient and/or Family Agrees t: Yes Safety Risks/Education Patient Education: Correct Positioning Time/GCodes Time In: 1300 Time Out: 1400 Total Billed Treatment Time: 60 Total Billed Treatment 1,EX35m,FA25m PARMINDER OBREGON BATTERY INSPECTOR Sep 30, 2020 14:51
--- NOTE | 2020-09-30 15:42 | NUR ---
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 He first presented to [facility] in [place] [birth year] his [birth year], and was diagnosed with pneumonia but refused admission to hospital. Per his daughter he continued to worsen so she took him back 08/08 at which time his O2 sats were reportedly 70-80%. He was admitted and transferred 08/20 to [facility], then to [place] 09/07. Comorbidities are, in part, Atrial fibrillation, Warfarin anticoagulation, Diabetes mellitus, COPD , Hypoxemia, volume overload, Thrush, GERD. Patient has had active acute medical care since unit arrival. Visited with his daughter due to patient sleeping at this time. She reports he was independent prior to onset of the pneumonia, that he was mowing his own lawn, driving, performing all desired activities and tasks. 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 Patient resided home alone, discharge plan to be determined. PCP: Dr. Rodney Abdalla MD, [facility]: [facility] [place] INSURANCE: Medicare only, no supplements, no Rx plan DME: None, never needed. BARRIERS TO DISCHARGE: From home alone, hospitalized to date close to two months. Insured Medicare only. Daughter resides in [place], one son [place], [place] and one son [place] regarding supplemental caregiving. CONTACTS: Jacklyn Edmond, Daughter/POA-HC [address] [place] [address] Dane Marks, Son [address] [place] [address] Jacklyn understands the purpose and process of the weekly patient care conference and that patient first review will be 10/05/20.
--- NOTE | 2020-09-30 17:00 | Progress Note - Cardiology ---
Cardiology SOAP Progress Note Subjective: Malaise present No cp or palp or syncope or shortness of breath No n/v/d Objective: I&O/Vital Signs 09/30/20 09/30/20 09/30/20 09/30/20 05:48 09:25 10:18 10:27 Temp 36.9 36.4 Pulse 71 75 Resp 20 20 B/P (MAP) 107/53 (71) 129/54 Pulse Ox 93 94 96 O2 Delivery Nasal Cannula Nasal Cannula Nasal Cannula O2 Flow Rate 5.00 4.00 4.00 7.00 09/30/20 09/30/20 09/30/20 09/30/20 10:33 12:50 13:54 14:09 Temp 36.0 36.4 36.6 36.4 Pulse 67 80 81 84 Resp 18 20 18 20 B/P (MAP) 124/58 131/60 128/61 142/64 Pulse Ox 92 94 93 93 O2 Delivery High Flow N/C High Flow N/C Nasal Cannula High Flow N/C O2 Flow Rate 6.00 6.00 6.00 6.00 09/30/20 09/30/20 15:16 16:53 Temp 37.1 Pulse 89 Resp 18 B/P (MAP) 136/62 Pulse Ox 96 91 O2 Delivery High Flow N/C O2 Flow Rate 7.00 6.00 09/30/20 00:00 Intake Total 960 ml Balance 960 ml Constitutional: AAO x 3, well-developed, well-nourished Respiratory: No accessory muscle use, No respiratory distress; chest expansion is symmetric, chest is bilaterally symmetric, other (diminished bases bilat) Cardiovascular: regular rate-rhythm; No JVD; S1 and S2 Gastrointestional: No tender; soft, round, audible bowel sounds Extremities: no lower extremity edema bilateral Neurologic/Psychiatric: grossly intact (moves all extremities; gen weakness) Skin: No rash on exposed areas, No ulcerations on exposed areas Results/Procedures: Labs Laboratory Tests 09/29/20 19:48: Glucometer 277H 09/30/20 05:20: Glucometer 157H 09/30/20 05:33: White Blood Count 13.2H, Red Blood Count 2.32L, Hemoglobin 6.8*L, Hematocrit 22L , Mean Corpuscular Volume 96, Mean Corpuscular Hemoglobin 29, Mean Corpuscular Hemoglobin Concent 31L, Red Cell Distribution Width 19.2H, Platelet Count 198, Mean Platelet Volume 11.0, Immature Granulocyte % (Auto) 2, Neutrophils (%) (Auto) 86H, Lymphocytes (%) (Auto) 6L, Monocytes (%) (Auto) 5, Eosinophils (%) (Auto) 0, Basophils (%) (Auto) 0, Neutrophils # (Auto) 11.4H, Lymphocytes # (Auto) 0.8L, Monocytes # (Auto) 0.7, Eosinophils # (Auto) 0.0, Basophils # (Auto) 0.0, Immature Granulocyte # (Auto) 0.2H, Prothrombin Time 19.9H, INR Comment 1.6H, Sodium Level 139, Potassium Level 4.3, Chloride Level 104, Carbon Dioxide Level 27, Anion Gap 8, Blood Urea Nitrogen 49H, Creatinine 0.95, Estimat Glomerular Filtration Rate > 60, BUN/Creatinine Ratio 52, Glucose Level 132H, Calcium Level 7.2L, Corrected Calcium 8.6, Total Bilirubin 0.4, Aspartate Amino Transf (AST/SGOT) 26, Alanine Aminotransferase (ALT/SGPT) 65H, Alkaline Phosphatase 79, Total Protein 4.1L, Albumin 2.2L, Procalcitonin 0.11H 09/30/20 11:45: Glucometer 175H 09/30/20 15:41: Glucometer 184H Microbiology 09/28/20 Blood Culture - Preliminary, Resulted No growth Laboratory Tests 09/28/20 20:35 09/29/20 04:50 09/30/20 05:33 A/P: Assessment: Pneumonia with sepsis - management per Dr Perez and Pulm svce Anemia of undetermined etiology - management per medical services PAF EKG of 09-29-2020 showed RBBB of unknown length of time OAC with warfarin Echocardiogram of Sep 28, 2020 showed LVEF 55-65%. 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 Perez Plan: Pneumonia with sepsis management per pulmonary/medical services Anemia of undetermined etiology, managed by Dr Perez - receiving PRBC transfusion this morning - advise consult with GI services for consideration of endoscopy Chronic OAC with warfarin - subtherapeutic - monitor dose closely d/t abx tx - adjust dose as indicated Monitor lab Replace electrolytes as indicated There is no cardiology coverage over the weekend. Refer to primary care attending. If emergent cardiac services are needed, will require transfer to tertiary care facility, to be decided by primary care attending. JENIFFER ROBERT MD FACP FAC CCDS Sep 30, 2020 17:00
[2020-09-30] MEDS: ALPRAZolam 0.25 MG (XANAX) TAB PO SCH (22:20)
[2020-10-01] MEDS: MEROPENEM 500 MG in WATER (STERILE) FOR INJECTION 10 ML IV SCH ×4 (02:30→22:06)
[2020-10-01 04:52] LABS: BASOPHILS % (AUTO) 0 % (0-10); EOSINOPHILS % (AUTO) 0 % (0-10); HEMATOCRIT 28 % (40-54); HEMOGLOBIN 9.1 g/dL (13.3-17.7); LYMPHOCYTES # (AUTO) 0.6 10^3/uL (1.0-4.0); LYMPHOCYTES % (AUTO) 5 % (12-44); MEAN CORPUSCULAR HEMOGLOBIN 30 pg (25-34); MEAN CORPUSCULAR HGB CONC 32 g/dL (32-36); MEAN CORPUSCULAR VOLUME 94 fL (80-99); MEAN PLATELET VOLUME 10.8 fL (9.0-12.2); MONOCYTES # (AUTO) 0.8 10^3/uL (0.0-1.0); MONOCYTES % (AUTO) 5 % (0-12); NEUTROPHILS # (AUTO) 12.4 10^3/uL (1.8-7.8); NEUTROPHILS % (AUTO) 88 % (42-75); PLATELET COUNT 178 10^3/uL (130-400); WHITE BLOOD COUNT 14.1 10^3/uL (4.3-11.0)
[2020-10-01 05:07] LABS: ALBUMIN 2.3 GM/DL (3.2-4.5); CHLORIDE 106 MMOL/L (98-107); POTASSIUM 4.1 MMOL/L (3.6-5.0); SODIUM 143 MMOL/L (135-145)
[2020-10-01 05:08] LABS: CALCIUM 7.2 MG/DL (8.5-10.1)
[2020-10-01 05:09] LABS: GLUCOSE 128 MG/DL (70-105); INR 1.8 (0.8-1.4); PROTHROMBIN TIME PATIENT 21.3 SEC (12.2-14.7)
[2020-10-01 05:10] LABS: CARBON DIOXIDE 27 MMOL/L (21-32)
[2020-10-01 05:11] LABS: BILIRUBIN,TOTAL 0.5 MG/DL (0.1-1.0)
[2020-10-01 05:13] LABS: ALKALINE PHOSPHATASE 91 U/L (40-136); CREATININE SERUM 1.06 MG/DL (0.60-1.30); GFR ESTIMATED > 60
[2020-10-01 05:14] LABS: BUN/CREATININE RATIO 48
[2020-10-01 05:16] LABS: ALANINE AMINOTRANSFERASE 67 U/L (0-55)
[2020-10-01] MEDS: inSUlin ASPART (NovoLOG) 1 UNIT/0.01 ML (CHARGE PER UNIT) SC SCH ×4 (05:20→22:08)
[2020-10-01 06:00] VITALS: BP 138/61
--- NOTE | 2020-10-01 06:10 | PM&R Progress Note ---
Subjective HPI/CC On Admission Date Seen by Provider: Oct 01, 2020 Time Seen by Provider: 06:00 Subjective/Events-last exam 10/01/2020: Patient much improved Meropenem and vancomycin maintained and tolerated well Status post 2 units of blood transfusion yesterday and now much improved hemoglobin of 9.1 Hemoccult stools are positive so contacted Dr. Smith and increase Protonix to 40 mg twice daily instead of just daily and listed pharmacological DVT prophylaxis is contraindicated due to active GI bleeding due suspicion from elevated BUN that bleeding is active Very complex issues Lungs sound much better Maintain on oxygen 6 L Slow recovery Legs are very weak severe myopathy noted 09/30/2020: Hemoglobin 6.8 and patient very symptomatic so we will transfuse 2 units with Lasix in between the units to prevent overload Still requiring [address] scan reviewed Patient had a better night sleep Denies any significant new issues Antibiotics maintain We will stop IV fluids Check meds and labs 09/29/20: Very complex issues overnight Reviewed chest x-ray done earlier in the day and it showed bilateral infiltrates and considering he had a Covid-like illness that prompted the hospital stay 1 month ago and considering his continued hypoxia managed with Lasix and steroids at [facility] I went ahead and did the sepsis work-up which revealed elevated lactic acid but not likely due to pneumonia but likely dehydration and volume depletion since he had thrush and was not eating or drinking well Covered him with broad-spectrum antibiotics Consulted Dr. Gamble Consulted Dr. Alanis IV fluids initiated Check echocardiogram Conferred with RN Reviewed therapy notes Check meds and labs Review of Systems General: Fatigue Pulmonary: Dyspnea Neurological: Weakness, Incoordination Focused Exam Lactate Level 09/28/20 20:35: Lactic Acid Level 2.73*H 09/28/20 23:05: Lactic Acid Level 3.37*H 09/29/20 04:50: Lactic Acid Level 1.17 Objective Exam Vital Signs Vital Signs Date Time Temp Pulse Resp B/P (MAP) Pulse Ox O2 Delivery O2 Flow Rate FiO2 10/01/20 12:30 73 10/01/20 10:14 90 High Flow N/C 8.00 10/01/20 06:00 36.6 20 138/61 (86) 09/28/20 19:10 94 Capillary Refill : Less Than 3 Seconds General Appearance: No Apparent Distress, WD/WN, Chronically ill HEENT: PERRL/EOMI, Normal ENT Inspection, Pharynx Normal Neck: Full Range of Motion, Normal Inspection, Non Tender, Supple, Carotid Bruit Respiratory: Chest Non Tender, No Accessory Muscle Use, No Respiratory Distress, Decreased Breath Sounds Cardiovascular: Regular Rate, Rhythm, No Edema, No Gallop, No JVD, No Murmur, Normal Peripheral Pulses Gastrointestinal: Normal Bowel Sounds, No Organomegaly, No Pulsatile Mass, Non Tender, Soft Back: Normal Inspection, No CVA Tenderness, No Vertebral Tenderness Extremity: Normal Capillary Refill, Normal Inspection, Normal Range of Motion, Non Tender, No Calf Tenderness, No Pedal Edema Neurologic/Psychiatric: Alert, Oriented x3, Normal Mood/Affect, sports nutritionist II-XII Norm as Tested, Abnormal Gait, Depressed Affect, Motor Weakness (severe 3/5 all extremities) Skin: Normal Color, Warm/Dry Lymphatic: No Adenopathy Results/Procedures Lab Laboratory Tests 10/01/20 04:35 Patient resulted labs reviewed. FIM Transfers Therapy Code Descriptions/Definitions Functional [place] Measure: 0=Not Assessed/NA 4=Minimal Assistance 1=Total Assistance 5=Supervision or Setup 2=Maximal Assistance 6=Modified [place] 3=Moderate Assistance 7=Complete IndependenceSCALE: Activities may be completed with or without assistive devices. 4-Zbxteyjdlh-bgghvtn completes the activity by him/herself with no assistance from a helper. 5-Set-up or Clean-up Assistance-helper sets up or cleans up; patient completes a ctivity. [place] assists only prior to or following the activity. 4-Supervision or Touching Assistance-helper provides verbal cues and/or touching/steadying and/or contact guard assistance as patient completes activity. Assistance may be provided throughout the activity or intermittently. 3-Partial/Moderate Assistance-helper does LESS THAN HALF the effort. [place] lifts, holds or supports trunk or limbs, but provides less than half the effort. 2-Substantial/Maximal Assistance-helper does MORE THAN HALF the effort. [place] lifts or holds trunk or limbs and provides more than half the effort. 2-Njatomnie-jbevcw does ALL the effort. Patient does none of the effort to complete the activity. Or, the assistance of 2 or more helpers is required for the patient to complete the activity. If activity was not attempted, code reason: 7-Patient Refused. 9-Not Applicable-not attempted and the patient did not perform the activity before the current illness, exacerbation or injury. 10-Not Attempted due to Environmental Limitations-(lack of equipment, weather restraints, etc.). 88-Not Attempted due to Medical Conditions or Safety Concerns. Roll Left to Right (QC): 3 Sit to Lying (QC): 2 Sit to Stand (QC): 2 Chair/Pdi-yx-Agzqu Xfer(QC): 2 Car Transfer (QC): 1 Gait Training Does the Patient Walk?: No and Walking Goal IS indicated Walk 10 feet (QC): 3 Walk 50 ft with 2 Turns(QC): 88 Walk 150 ft (QC): 88 Walking 10ft/uneven surface-QC: 88 Wheelchair Training Does the Pt Use a Wheelchair?: Yes Wheel 50 ft with 2 turns (QC): 3 Wheel 150 ft (QC): 1 Type of Wheelchair: Manual Stair Training 1 Step (curb) (QC): 88 4 Steps (QC): 88 12 Steps (QC): 88 Balance Picking up an Object (QC): 88 ADL-Treatment Eating (QC): 6 (Pt indicates independent with feeding. No difficulty with lunch, able to cut his food, use utensils, and bring food/drink to mouth.) Oral Hygiene (QC): 5 (set up at bed level) Shower/Bathe Self (QC): 2 (Sponge bath max A, pt able to wash arms, chest/stomach, required assistance for thoroughness. OT washed all other parts.) Upper Body Dressing (QC): 3 ([place]) Lower Body Dressing (QC): 1 (OT dependently changed soiled brief at bed level, mod A for rolling side to side.) On/Off Footwear (QC): 1 (total assist donning TEDhose and gripper socks.) Toileting Hygiene (QC): 1 (Total assist at bed level to change soiled brief and perform hygiene. Mod A with rolling side to side.) Assessment/Plan Assessment and Plan Assess & Plan/Chief Complaint Assessment: COPD myopathy Hypoxia Abnormal CXR Thrush Coumadin treatment Respiratory failure DM GERD PHTN Plan: Check INR IRF protocol Dr Alanis and Dr Gamble consulted 09/29/20: Broad-spectrum antibiotics Pulmonology consultation Check labs Monitor oxygen level Monitor closely 09/30/20: Transfused 2 units of blood Hep-Lock IV fluid to prevent overload Lasix in between the blood Monitor oxygen level Maintain antibiotics Very complex issues 10/01/2020: Increase proton pump inhibitor to twice a day Consult Dr. Smith Noted elevated BUN with severe anemia status post 2 units of blood transfusion yesterday high suspicion for GI bleed likely upper from stress gastritis or ulcer Maintain antibiotics Monitor closely due to high risk for decompensation (1) Myopathy (2) Atrial fibrillation (3) Warfarin anticoagulation (4) Diabetes mellitus (5) COPD (chronic obstructive pulmonary disease) (6) Hypoxemia (7) Volume overload (8) SAEID Melchor DO Oct 01, 2020 06:10
[2020-10-01] MEDS: PANTOPRAZOLE 40 MG (PROTONIX) TAB PO SCH ×2 (09:57→22:11)
[2020-10-01] MEDS: methylPREDNISolone 40 MG/ML (Solu-MEDROL) VIAL IV SCH (09:57)
[2020-10-01] MEDS: FOLIC ACID 1 MG TAB PO SCH (09:57)
[2020-10-01] MEDS: NYSTATIN ORAL SUSP 5 ML UDC PO SCH ×4 (09:57→22:10)
[2020-10-01] MEDS: AMIODARONE 200 MG (CORDARONE) TAB PO SCH ×2 (09:57→22:10)
[2020-10-01] MEDS: polyethylene glycoL POWDER 17 GM (MIRALAX) PACK PO SCH ×2 (09:57→22:08)
[2020-10-01] MEDS: SENNA W/DOCUSATE (SENOKOT S) TABLET PO SCH ×2 (09:58→22:09)
[2020-10-01] MEDS: DOCUSATE SODIUM 100 MG (COLACE) CAP PO SCH ×2 (09:58→22:10)
[2020-10-01] MEDS: MULTIVIT W/MINERALS TAB (THERAGRAN M) PO SCH (09:58)
[2020-10-01] MEDS: SILDENAFIL 20 MG (REVATIO) TAB NON-FORMULARY PO SCH ×3 (09:58→22:08)
[2020-10-01] MEDS: FLUTICASONE NASAL SPRAY (FLONASE) 16 GM BTL NS SCH ×2 (09:59→22:07)
[2020-10-01 10:00] VITALS: BP 131/64
[2020-10-01] MEDS: RT-ALBUTEROL/IPRATROPIUM 3 ML (DUONEB) VIAL IH SCH ×4 (10:11→19:12)
[2020-10-01] MEDS: ADVAIR HFA 115/21 MCG INHALER 8 GM IH SCH (10:13)
[2020-10-01] MEDS: SALIVA STIMULANT MOUTH SPRAY (BIOTENE) 1.5 OZ MM SCH ×3 (10:39→22:06)
[2020-10-01] MEDS ORDERED: TROUGH ORDER-PHARMACY XX NR (12:00)
--- NOTE | 2020-10-01 12:00 | Physical Therapy Daily Note ---
PT Daily Note-Current Subjective Pt. in bed shivering and c/o he is miserable today. Agrees to bed exercises if warmed blanket is applied first. Pt.declines sitting up at edge of bed. Pain Location: No Pain Reported Mental Status Patient Orientation: Person, Place, Time, Situation Attachments: Oxygen Transfers SCALE: Activities may be completed with or without assistive devices. 1-Vukelkvqbw-yegknrd completes the activity by him/herself with no assistance from a helper. 5-Set-up or Clean-up Assistance-helper sets up or cleans up; patient completes activity. [place] assists only prior to or following the activity. 4-Supervision or Touching Assistance-helper provides verbal cues and/or touching/steadying and/or contact guard assistance as patient completes activity. Assistance may be provided throughout the activity or intermittently. 3-Partial/Moderate Assistance-helper does LESS THAN HALF the effort. [place] lifts, holds or supports trunk or limbs, but provides less than half the effort. 2-Substantial/Maximal Assistance-helper does MORE THAN HALF the effort. [place] lifts or holds trunk or limbs and provides more than half the effort. 5-Gqjkevvgo-lamfkf does ALL the effort. Patient does none of the effort to complete the activity. Or, the assistance of 2 or more helpers is required for the patient to complete the activity. If activity was not attempted, code reason: 7-Patient Refused. 9-Not Applicable-not attempted and the patient did not perform the activity before the current illness, exacerbation or injury. 10-Not Attempted due to Environmental Limitations-(lack of equipment, weather restraints, etc.). 88-Not Attempted due to Medical Conditions or Safety Concerns. rolling left and right min to mod Exercises Supine Ex: Ankle pumps, Quad Set, Rolling, Glut sets, Heel Slides, Short Arc Quads, Straight leg raise, Hip abd/add Supine Reps: 10 (x2) Assessment Current Status: Fair Progress very fatigued with exercises PT Short Term Goals Short Term Goals Time Frame: Oct 05, 2020 Roll Left & Right: 4 Sit to lyin Lying to sitting on side of be: 3 Sit to stand: 2 Chair/fzk-yr-jyvzg transfer: 2 PT Care Home Goals Care Home Goals PT [place] Goals Time Frame: Oct 19, 2020 Roll Left & Right (QC): 6 Sit to Lying (QC): 6 Lying-Sitting on Side/Bed(QC): 6 Sit to Stand (QC): 3 Chair/Rih-az-Yjyed Xfer(QC): 3 Toilet Transfer (QC): 3 Car Transfer (QC): 1 Does the Patient Walk: Yes Walk 10 feet (QC): 3 Walk 50ft with 2 Turns (QC): 88 Walk 150 ft (QC): 88 Walking 10ft on Uneven Surface: 88 1 Step (curb) (QC): 88 4 Steps (QC): 88 12 Steps (QC): 88 Picking up an Object (QC): 88 Wheel 50 feet with 2 turns (QC: 4 Wheel 150 feet: 4 PT Plan Treatment/Plan Treatment Plan: Continue Plan of Care Treatment Plan: Bed Mobility, Education, Functional Activity [place], Functional Strength, Group Therapy, Gait, Safety, Therapeutic Exercise, Transfers Treatment Duration: Oct 19, 2020 Frequency: At least 5 of 7 days/Wk (IRF) Estimated Hrs Per Day: 1.5 hours per day Patient and/or Family Agrees t: Yes Safety Risks/Education Patient Education: Correct Positioning Time/GCodes Time In: 1100 Time Out: 1120 Total Billed Treatment Time: 20 Total Billed Treatment 1,EX20m PARMINDER OBREGON PTA Oct 01, 2020 12:00
[2020-10-01] MEDS: aCETylcysteine 20% (MUCOMYST) 30ML SOLN VIAL PO SCH ×2 (15:26→22:13)
[2020-10-01] MEDS: VANCOMYCIN 1500 MG/NS 500 ML IVPB IV SCH ×2 (15:28)
[2020-10-01 16:27] VITALS: BP 137/62
--- NOTE | 2020-10-01 17:10 | Consultation - Surgery ---
History of Present Illness History of Present Illness Patient Consulted On(isaac/time) 10/01/20 17:05 Time Seen by Provider: 16:39 History of Present Illness Surgery asked to consult regarding Anemia and Hemoccult +. HPI per IM: This is an 80yoWM who presents to the IRF after a lengthy and convoluted hospital course which started at [facility] in [place], [place] who complains of SOB, generalized weakness, occasional dizziness for ~2-3 weeks, transferred to [facility] in [place] on 08/20. 08/23 intubated, self extubated, 08/24 reintubated, 08/26 weaned from vent. 09/28/2020 Transferred to [facility] from [facility] for skilled therapies and continued medication management. Patient had multiple COVID tests and thet were negative but he appears to have some sort of viral PNA with persistence of infiltrates on CXR requiring IV steroids and IV Lasix. Dr Gamble and Dr Alanis have been consulted. ECHO and CXR ordered. CXR appears to have infiltrates so will obtain sepsis w/u. Patient unable to answer my questions due to controlled dyspnea without distress and fatigue. HPI per Cardiology: Mr. Marks is an 80 year old male admitted to IRU [facility] from [place]. Review of records available has been completed. He was admitted to [facility] in [place], [place] from [facility] on 08-20-2020 with pneumonia requiring intubation which was discontinued on 08-26-2020. He is currently in bed. He reports gen weakness and hoarse voice. He reports SOB, but feels it is better than yesterday. No c/o CP or palpitations. He denies seeing cardiology services in the past. He reports he has a history of a-fib and is on chronic warfarin, but denies any other cardiac history. He denies any n/v/d. When I spoke to him, his main complaint was of weakness in his legs. He denies any hematochezia, hematemesis, or melena. He thinks his last colonoscopy was "many years ago" and never had an EGD. Tolerating diet and states he is having diarrhea that he can't control; made worse by the fact that he can't get up to go to the bathroom. Allergies and Home Medications Allergies Coded Allergies: No Allergy Information Available (Unverified , 09/28/20) Home Medications Acetaminophen 650 Mg Tablet.er, 650 MG PO Q6H PRN for PAIN-MILD (1-4) OR TEMPATURE, (Reported) Acetylcysteine 600 Mg Capsule, 1,200 MG PO BID, (Reported) TAKES 2 (600MG) CAPS Albuterol Sulfate 2.5 Mg/0.5 Ml Vial.neb, 2.5 MG INH Q4H PRN for SHORTNESS OF BREATH, (Reported) Alprazolam 0.25 Mg Tablet, 0.25 MG PO HS, (Reported) Amiodarone HCl 200 Mg Tablet, 200 MG PO BID, (Reported) HOLD FOR HR LESS THAN 55 Dextrose 50 % in Water 50 Ml Syringe, 50 ML IV PRN PRN for GLUCOSE LESS THEN 50, (Reported) Fluticasone Propionate 9.9 Ml [place].susp, 1 SPRAY NS BID, (Reported) Fluticasone/Vilanterol 1 Each Blst.w.dev, 1 EACH IH DAILY, (Reported) Furosemide 10 Mg/1 Ml Vial, 40 MG IV BID, (Reported) HOLD FOR SYSTOLIC BLOOD PRESSURE LESS THAN 100 Insulin Glargine,Hum.rec.anlog 100 Unit/1 Ml Vial, 15 UNIT SQ 0700, (Reported) Insulin Lispro 100 Unit/1 Ml Vial, UNIT SQ ACHS, (Reported) USE PER SLIDING SCALE Ipratropium/Albuterol Sulfate 3 Ml Ampul.neb, 3 ML IH Q4H PRN for SHORTNESS OF BREATH, (Reported) Ipratropium/Albuterol Sulfate 3 Ml Ampul.neb, 3 ML IH 0700,1100,1500,1900, (Reported) Ipratropium/Albuterol Sulfate 3 Ml Ampul.neb, 3 ML IH Q4H PRN for SHORTNESS OF BREATH, (Reported) Methylprednisolone Sod Succ/Pf 40 Mg/1 Ml Vial, 40 MG IV DAILY, (Reported) DILUATE WITH AT LEAST 10 ML STERILE WATER OR NORMAL SALINE Multivitamin with Minerals 1 Each Tablet, 1 EACH PO DAILY, (Reported) Nystatin 100,000 Unit/1 Ml Oral.susp, 5 ML PO QID, (Reported) SWISH AND SWALLOW- USE FOR 7 DAYS Ondansetron HCl 2 Mg/1 Ml Vial, 4 MG IV Q4H PRN for NAUSEA/VOMITING-1ST LINE, (Reported) Pantoprazole Sodium 40 Mg Tablet.dr, 40 MG PO DAILY, (Reported) Saliva Substitution Combo No.9 473 Ml Mouthwash, 10 ML MM TID, (Reported) Sildenafil Citrate 20 Mg Tablet, 20 MG PO TID, (Reported) HOLD FOR SYSTOLIC PRESSUE LESS THAN 100 Ubidecarenone 400 Mg Capsule, 400 MG PO DAILY, (Reported) Warfarin Sodium 1 Mg Tablet, 1 MG PO 1700, (Reported) [Folic Acid] , 1 MG PO DAILY, (Reported) Patient Home Medication List Home Medication List Reviewed: Yes Past Rvggjoh-Ujhizn-Yifvah Hx Patient Social History Alcohol Use: Past History Recreational Drug Use: No Smoking Status: Unknown if Ever Smoked Former Smoker, Quit: Oct 29, 1979 Type Used: Cigarettes Recent Foreign Travel: No Contact w/Someone Who Travel: No Recent Infectious Disease Expo: No Recent Hopitalizations: No Physical Abuse Screen: No Sexual Abuse: No Immunizations Up To Date PED Vaccines UTD: Yes Date of Pneumonia Vaccine: Jul 27, 2020 Date of Influenza Vaccine: Jul 27, 2020 Seasonal Allergies Seasonal Allergies: No Surgeries History of Surgeries: Yes Surgeries: Renal (kidney stones) Respiratory History of Respiratory Disorde: Yes Respiratory Disorders: Pneumonia, Pulmonary Embolism Cardiovascular History of Cardiac Disorders: Yes Cardiac Disorders: Atrial Fibrillation, Chronic Edema/Swelling Neurological History of Neurological Disord: No Genitourinary History of Genitourinary Disor: Yes Genitourinary Disorders: Renal Failure Gastrointestinal History of Gastrointestinal Di: Yes Gastrointestinal Disorders: Gastroesophageal Reflux Musculoskeletal History of Musculoskeletal Dis: No Endocrine History of Endocrine Disorders: Yes Endocrine Disorders: Diabetes, Insulin dep HEENT History of HEENT Disorders: No Loss of Vision: Denies Hearing Impairment: Hard of Hearing Cancer History of Cancer: No Psychosocial History of Psychiatric Problem: No Integumentary History of Skin or Integumenta: Yes Skin/Integumentary Disorders: Eczema Blood Transfusions History of Blood Disorders: No Adverse Reaction to a Blood Tr: No Family Medical History Significant Family History: Stroke (mother), Other Conditions/Hx (states his father at 61, but "I never figured out why") Review of Systems-General Constitutional: malaise, weakness EENTM: No blurred vision, No double vision, No mouth pain, No mouth swelling, No epistaxis Respiratory: cough, dyspnea on exertion, phlegm, short of breath Cardiovascular: No chest pain; edema; No palpitations Gastrointestinal: No abdominal pain; diarrhea; No heartburn, No melena, No nausea, No vomiting Genitourinary: No dysuria, No frequency, No hematuria Musculoskeletal: joint pain, joint swelling, muscle weakness Skin: No change in color, No change in hair/nails Psychiatric/Neurological: Denies Anxiety, Denies Depressed, Denies Seizure; Weakness Other pt denies any hx of abnormal bleeding or bruising Physical Exam-General Problems Physical Exam Vital Signs Vital Signs - First Documented 09/28/20 09/28/20 12:34 19:10 Temp 36.0 Pulse 80 Resp 18 B/P (MAP) 124/61 Pulse Ox 94 O2 Delivery Nasal Cannula O2 Flow Rate 5.00 FiO2 94 Capillary Refill : Less Than 3 Seconds General Appearance: WD/WN, no apparent distress Eyes: Bilateral Eye PERRL, Bilateral Eye Abnormal EOM HEENT: pharynx normal; No scleral icterus (R), No scleral icterus (L); other (poor dentition) Respiratory: no respiratory distress, no accessory muscle use, decreased breath sounds (at bases), crackles Cardiovascular: regular rate, rhythm, no murmur Gastrointestinal: non tender, soft, no organomegaly Back: no CVA tenderness Extremities: no calf tenderness, pedal edema (especially the ankles bilaterally) Neurologic/Psychiatric: disease management nurse II-XII nml as tested, alert, normal mood/affect, oriented x 3, motor weakness Skin: normal color, warm/dry Lymphatic: no adenopathy (neck, axilla or groin) Data Review Labs Laboratory Tests 09/30/20 21:02: Glucometer 295H 10/01/20 04:35: White Blood Count 14.1H, Red Blood Count 3.02L, Hemoglobin 9.1#L, Hematocrit 28L , Mean Corpuscular Volume 94, Mean Corpuscular Hemoglobin 30, Mean Corpuscular Hemoglobin Concent 32, Red Cell Distribution Width 18.2H, Platelet Count 178, Mean Platelet Volume 10.8, Immature Granulocyte % (Auto) 2, Neutrophils (%) (Auto) 88H, Lymphocytes (%) (Auto) 5L, Monocytes (%) (Auto) 5, Eosinophils (%) (Auto) 0, Basophils (%) (Auto) 0, Neutrophils # (Auto) 12.4H, Lymphocytes # (Auto) 0.6L, Monocytes # (Auto) 0.8, Eosinophils # (Auto) 0.0, Basophils # (Auto) 0.0, Immature Granulocyte # (Auto) 0.3H, Prothrombin Time 21.3H, INR Comment 1.8H, Sodium Level 143, Potassium Level 4.1, Chloride Level 106, Carbon Dioxide Level 27, Anion Gap 10, Blood Urea Nitrogen 51H, Creatinine 1.06, Estimat Glomerular Filtration Rate > 60, BUN/Creatinine Ratio 48, Glucose Level 128H, Calcium Level 7.2L, Corrected Calcium 8.6, Total Bilirubin 0.5, Aspartate Amino Transf (AST/SGOT) 27, Alanine Aminotransferase (ALT/SGPT) 67H, Alkaline Phosphatase 91, Total Protein 4.0L, Albumin 2.3L 10/01/20 09:25: Stool Occult Blood Immunoassay POSITIVEH 10/01/20 11:29: Glucometer 167H 10/01/20 12:15: Vancomycin Level Trough 19.4 10/01/20 15:55: Glucometer 132H Microbiology 09/28/20 Blood Culture - Preliminary, Resulted No growth Radiology Date of Exam:09/29/20 CT ANGIO CHEST W PROCEDURE: CT angiography Chest TECHNIQUE: After intravenous administration of contrast, thin section axial CT angiography of the chest was performed. 3D MIP reconstructions were made. All CT scans use one or more of the following dose optimizing techniques: automated exposure control, MA and/or KvP adjustment based on a patient size and exam type, or iterative reconstruction. INDICATION: Shortness of breath COMPARISON: None available FINDINGS: Vasculature: No pulmonary emboli. The pulmonary trunk is dilated measuring 2.5 cm and this can be seen with pulmonary hypertension. Mild flattening of the intraventricular septum. Thoracic aorta is normal in caliber. No aortic dissection or pseudoaneurysm. Heart and mediastinum: Visualized thyroid is normal. No supraclavicular, axillary, or intra-thoracic lymphadenopathy. Heart is enlarged with left ventricular hypertrophy. Pleura: Trace bilateral pleural effusions. No pneumothorax. Lungs and airway: No endoluminal lesion in the trachea or central bronchi. Moderate centrilobular emphysema. Basilar peribronchial consolidations are present and greatest in the lower lobes. There are areas of traction bronchiectasis within the bilateral lower lobes. Additionally, there is some region of stack subpleural cystic change in the right lower lobe and lingula indicative of small regions of pulmonary fibrosis. Upper abdomen: Allowing for the phase of contrast, no acute abnormality in the upper abdomen is seen. Musculoskeletal: No concerning osseous lesion. IMPRESSION: 1. No pulmonary emboli or acute aortic syndrome. 2. Cardiomegaly with groundglass pulmonary opacities and peribronchial consolidations of lung bases could be due to pulmonary edema. Alternatively, infection or acute exacerbation of interstitial lung disease could also give this appearance. 3. Small regions of honeycombing and traction bronchiectasis in the lung bases are indicative of pulmonary fibrosis. This is a possible UIP pattern of pneumonia. 4. Trace bilateral pleural effusions. Dictated by: Dictated on workstation # [id number] Dict: 09/29/20 1533 Trans: 09/29/20 1633 CVB [id number] Interpreted by: OLAMIDE ANGELES MD Electronically signed by: OLAMIDE ANGELES MD 09/29/20 1631 Assessment/Plan Assessment/Plan Assessment/Plan Anemia - unknown etiology Hemoccult + Pneumonia LE weakness I had discussion with pt regarding options for working up his anemia (which he had to have a 2 unit blood transfusion). He can do nothing, have only EGD performed or have both EGD and colonoscopy. I told him either option is ok, it was up to him how aggressive he wanted to be with treatment. I think because he needed a transfusion; it is worthwhile to perform a work-up and he agreed. He wants to do have both upper and lower endoscopies performed. We discussed risks and complications, not limited to pain, bleeding, infection and even esophageal or colonic perforation. All questions answered to his satisfaction and we will get consent and start prep tomorrow. Plan for procedures on Saturday. Clinical Quality Measures DVT/VTE Risk/Contraindication: Risk Factor Score Per Nursin RFS Level Per Nursing on Admit: 4+=Very High Contraindications-Pharm: Other *list below* Other: YANN ERICKSON DO Oct 01, 2020 17:10
[2020-10-01] MEDS: ALPRAZolam 0.25 MG (XANAX) TAB PO SCH (22:10)
[2020-10-02] MEDS: MEROPENEM 500 MG in WATER (STERILE) FOR INJECTION 10 ML IV SCH ×4 (02:34→20:24)
[2020-10-02 06:00] VITALS: BP 128/61
[2020-10-02] MEDS: inSUlin ASPART (NovoLOG) 1 UNIT/0.01 ML (CHARGE PER UNIT) SC SCH ×4 (06:05→21:45)
--- NOTE | 2020-10-02 06:14 | PM&R Progress Note ---
Subjective HPI/CC On Admission Date Seen by Provider: Oct 02, 2020 Time Seen by Provider: 06:20 Subjective/Events-last exam 10/02/20: Patient appears much better EGD/Colonoscopy tomorrow Patient reports scopes many years ago Hgb 9.3 stable Iron 46 so will give 1 dose of IV iron Really needs OAC but need scopes first then will start 10/01/2020: Patient much improved Meropenem and vancomycin maintained and tolerated well Status post 2 units of blood transfusion yesterday and now much improved hemoglobin of 9.1 Hemoccult stools are positive so contacted Dr. Smith and increase Protonix to 40 mg twice daily instead of just daily and listed pharmacological DVT prophylaxis is contraindicated due to active GI bleeding due suspicion from elevated BUN that bleeding is active Very complex issues Lungs sound much better Maintain on oxygen 6 L Slow recovery Legs are very weak severe myopathy noted 09/30/2020: Hemoglobin 6.8 and patient very symptomatic so we will transfuse 2 units with Lasix in between the units to prevent overload Still requiring [address] scan reviewed Patient had a better night sleep Denies any significant new issues Antibiotics maintain We will stop IV fluids Check meds and labs 09/29/20: Very complex issues overnight Reviewed chest x-ray done earlier in the day and it showed bilateral infiltrates and considering he had a Covid-like illness that prompted the hospital stay 1 month ago and considering his continued hypoxia managed with Lasix and steroids at [facility] I went ahead and did the sepsis work-up which revealed elevated lactic acid but not likely due to pneumonia but likely dehydration and volume depletion since he had thrush and was not eating or drinking well Covered him with broad-spectrum antibiotics Consulted Dr. Gamble Consulted Dr. Alanis IV fluids initiated Check echocardiogram Conferred with RN Reviewed therapy notes Check meds and labs Review of Systems General: Fatigue, Malaise Neurological: Weakness, Incoordination Objective Exam Vital Signs Vital Signs Date Time Temp Pulse Resp B/P (MAP) Pulse Ox O2 Delivery O2 Flow Rate FiO2 10/02/20 12:20 71 10/02/20 11:51 95 High Flow N/C 5.00 10/02/20 06:00 36.2 22 128/61 (83) 09/28/20 19:10 94 Capillary Refill : Less Than 3 Seconds General Appearance: No Apparent Distress, WD/WN, Chronically ill HEENT: PERRL/EOMI, Normal ENT Inspection, Pharynx Normal Neck: Full Range of Motion, Normal Inspection, Non Tender, Supple, Carotid Bruit Respiratory: Chest Non Tender, No Accessory Muscle Use, No Respiratory Distress, Decreased Breath Sounds Cardiovascular: Regular Rate, Rhythm, No Edema, No Gallop, No JVD, No Murmur, Normal Peripheral Pulses Gastrointestinal: Normal Bowel Sounds, No Organomegaly, No Pulsatile Mass, Non Tender, Soft Back: Normal Inspection, No CVA Tenderness, No Vertebral Tenderness Extremity: Normal Capillary Refill, Normal Inspection, Normal Range of Motion, Non Tender, No Calf Tenderness, No Pedal Edema Neurologic/Psychiatric: Alert, Oriented x3, Normal Mood/Affect, wharf tender II-XII Norm as Tested, Abnormal Gait, Depressed Affect, Motor Weakness (severe 3/5 all extremities) Skin: Normal Color, Warm/Dry Lymphatic: No Adenopathy Results/Procedures Lab Laboratory Tests 10/02/20 09:25 Patient resulted labs reviewed. FIM Transfers Therapy Code Descriptions/Definitions Functional [place] Measure: 0=Not Assessed/NA 4=Minimal Assistance 1=Total Assistance 5=Supervision or Setup 2=Maximal Assistance 6=Modified [place] 3=Moderate Assistance 7=Complete IndependenceSCALE: Activities may be completed with or without assistive devices. 3-Hwduwnaxvv-ovmyunz completes the activity by him/herself with no assistance from a helper. 5-Set-up or Clean-up Assistance-helper sets up or cleans up; patient completes activity. [place] assists only prior to or following the activity. 4-Supervision or Touching Assistance-helper provides verbal cues and/or touching/steadying and/or contact guard assistance as patient completes activity. Assistance may be provided throughout the activity or intermittently. 3-Partial/Moderate Assistance-helper does LESS THAN HALF the effort. [place] lifts, holds or supports trunk or limbs, but provides less than half the effort. 2-Substantial/Maximal Assistance-helper does MORE THAN HALF the effort. [place] lifts or holds trunk or limbs and provides more than half the effort. 4-Cgmmmbkvu-htxnky does ALL the effort. Patient does none of the effort to complete the activity. Or, the assistance of 2 or more helpers is required for the patient to complete the activity. If activity was not attempted, code reason: 7-Patient Refused. 9-Not Applicable-not attempted and the patient did not perform the activity before the current illness, exacerbation or injury. 10-Not Attempted due to Environmental Limitations-(lack of equipment, weather restraints, etc.). 88-Not Attempted due to Medical Conditions or Safety Concerns. Roll Left to Right (QC): 3 Sit to Lying (QC): 2 Sit to Stand (QC): 2 Chair/Duz-ac-Bvegl Xfer(QC): 2 Car Transfer (QC): 1 Gait Training Does the Patient Walk?: No and Walking Goal IS indicated Walk 10 feet (QC): 3 Walk 50 ft with 2 Turns(QC): 88 Walk 150 ft (QC): 88 Walking 10ft/uneven surface-QC: 88 Wheelchair Training Does the Pt Use a Wheelchair?: Yes Wheel 50 ft with 2 turns (QC): 3 Wheel 150 ft (QC): 1 Type of Wheelchair: Manual Stair Training 1 Step (curb) (QC): 88 4 Steps (QC): 88 12 Steps (QC): 88 Balance Picking up an Object (QC): 88 ADL-Treatment Eating (QC): 6 (Pt indicates independent with feeding. No difficulty with lunch, able to cut his food, use utensils, and bring food/drink to mouth.) Oral Hygiene (QC): 5 (set up at bed level) Shower/Bathe Self (QC): 2 (Sponge bath max A, pt able to wash arms, chest/stomach, required assistance for thoroughness. OT washed all other parts.) Upper Body Dressing (QC): 3 ([place]) Lower Body Dressing (QC): 1 (OT dependently changed soiled brief at bed level, mod A for rolling side to side.) On/Off Footwear (QC): 1 (total assist donning TEDhose and gripper socks.) Toileting Hygiene (QC): 1 (Total assist at bed level to change soiled brief and perform hygiene. Mod A with rolling side to side.) Assessment/Plan Assessment and Plan Assess & Plan/Chief Complaint Assessment: COPD myopathy Hypoxia Abnormal CXR Thrush Coumadin treatment Respiratory failure DM GERD PHTN Plan: Check INR IRF protocol Dr Alansi and Dr Gamble consulted 09/29/20: Broad-spectrum antibiotics Pulmonology consultation Check labs Monitor oxygen level Monitor closely 09/30/20: Transfused 2 units of blood Hep-Lock IV fluid to prevent overload Lasix in between the blood Monitor oxygen level Maintain antibiotics Very complex issues 10/01/2020: Increase proton pump inhibitor to twice a day Consult Dr. Smith Noted elevated BUN with severe anemia status post 2 units of blood transfusion yesterday high suspicion for GI bleed likely upper from stress gastritis or ulcer Maintain antibiotics Monitor closely due to high risk for decompensation 10/02/20: Scopes tomorrow Monitor hgb closely Iron infusion x 1 Check labs in am Abx to be maintained (1) Myopathy (2) Atrial fibrillation (3) Warfarin anticoagulation (4) Diabetes mellitus (5) COPD (chronic obstructive pulmonary disease) (6) Hypoxemia (7) Volume overload (8) SAEID Melchor DO Oct 02, 2020 06:14
[2020-10-02] MEDS: ADVAIR HFA 115/21 MCG INHALER 8 GM IH SCH (08:18)
[2020-10-02] MEDS: RT-ALBUTEROL/IPRATROPIUM 3 ML (DUONEB) VIAL IH SCH ×4 (08:18→23:33)
[2020-10-02 09:33] LABS: BASOPHILS % (AUTO) 0 % (0-10); EOSINOPHILS # (AUTO) 0.1 10^3/uL (0.0-0.3); EOSINOPHILS % (AUTO) 0 % (0-10); HEMATOCRIT 30 % (40-54); HEMOGLOBIN 9.3 g/dL (13.3-17.7); LYMPHOCYTES # (AUTO) 0.9 10^3/uL (1.0-4.0); LYMPHOCYTES % (AUTO) 6 % (12-44); MEAN CORPUSCULAR HEMOGLOBIN 30 pg (25-34); MEAN CORPUSCULAR HGB CONC 31 g/dL (32-36); MEAN CORPUSCULAR VOLUME 96 fL (80-99); MEAN PLATELET VOLUME 10.3 fL (9.0-12.2); MONOCYTES # (AUTO) 0.7 10^3/uL (0.0-1.0); MONOCYTES % (AUTO) 5 % (0-12); NEUTROPHILS # (AUTO) 12.3 10^3/uL (1.8-7.8); NEUTROPHILS % (AUTO) 87 % (42-75); PLATELET COUNT 157 10^3/uL (130-400); WHITE BLOOD COUNT 14.2 10^3/uL (4.3-11.0)
--- NOTE | 2020-10-02 09:41 | Progress Note - Surgery ---
MICHAEL DORSEY MED STUDENT 10/02/20 0941: Subjective Date Seen by a Provider: Oct 02, 2020 Time Seen by a Provider: 09:20 Subjective/Events-last exam Pt is awake, NAD. Continues to feel SOB with exertion, No complaints of chest/abd pain, N/V. Pt is concerned about his BLE weakness and inability to ambulate. Pt had questions about when he could start eating and was informed it would be after the EGD/colonoscopy schedules for tomorrow. Review of Systems Pulmonary: Dyspnea (chronic) Cardiovascular: No: Chest Pain, Palpitations, Lt Headedness Gastrointestinal: No: Nausea, Vomiting, Abdominal Pain Genitourinary: No Dysuria Neurological: Weakness (BLE) Focused Exam Respiratory: Lungs Clear, No Accessory Muscle Use, No Respiratory Distress, Decreased Breath Sounds Cardiovascular: Regular Rate, Rhythm, No JVD, No Murmur Skin: normal color, warm/dry Objective Exam Vital Signs Date Time Temp Pulse Resp B/P (MAP) Pulse Ox O2 Delivery O2 Flow Rate FiO2 10/02/20 08:23 95 High Flow N/C 8.00 10/02/20 07:00 74 10/02/20 06:00 36.2 64 22 128/61 (83) 91 Nasal Cannula 8.00 10/02/20 01:00 62 10/01/20 20:45 91 High Flow N/C 5.00 10/01/20 19:12 91 High Flow N/C 8.00 10/01/20 18:54 81 10/01/20 16:27 36.6 77 18 137/62 (87) 91 Nasal Cannula 5.00 10/01/20 12:30 73 10/01/20 10:14 90 High Flow N/C 8.00 10/01/20 10:00 71 131/64 (86) I & O 10/02/20 07:00 Intake Total 980 ml Balance 980 ml Capillary Refill : Less Than 3 Seconds General Appearance: No Apparent Distress, WD/WN, Chronically ill HEENT: PERRL/EOMI Neck: Normal Inspection Respiratory: Chest Non Tender, No Accessory Muscle Use, No Respiratory Distress, Decreased Breath Sounds Cardiovascular: Regular Rate, Rhythm, No Gallop, No JVD, No Murmur Gastrointestinal: non tender, soft Neurologic/Psychiatric: Alert, Oriented x3, Normal Mood/Affect, Abnormal Gait, Depressed Affect, Motor Weakness (severe 3/5 all extremities) Skin: Normal Color, Warm/Dry Results Lab Laboratory Tests 10/01/20 11:29: Glucometer 167H 10/01/20 12:15: Vancomycin Level Trough 19.4 10/01/20 15:55: Glucometer 132H 10/01/20 20:55: Glucometer 205H 10/02/20 04:45: 10/02/20 06:01: Glucometer 130H 10/02/20 09:25: Microbiology 09/28/20 Blood Culture - Preliminary, Resulted No growth Assessment/Plan Assessment/Plan Assessment/Plan Anemia - unknown etiology. Hgb 9.1 today, improved after 2unit transfusion Hemoccult+ - EGD/colonoscopy tomorrow Pneumonia LE weakness Hypoxia Pt continues to have SOB and BLE weakness. Clear liquids/bowel prep today, EGD and colonoscopy scheduled for tomorrow. Clinical Quality Measures DVT/VTE Risk/Contraindication: Risk Factor Score Per Nursin RFS Level Per Nursing on Admit: 4+=Very High Contraindications-Pharm: Other *list below* Other: JOSE ERICKSON DO 10/02/20 1452: Subjective Time Seen by a Provider: 14:02 Subjective/Events-last exam Pt seen and examined, no new complaints. Tolerating prep so far. Review of Systems Pulmonary: Dyspnea (chronic) Cardiovascular: No: Chest Pain, Palpitations Gastrointestinal: No: Nausea, Vomiting, Abdominal Pain Genitourinary: No Dysuria Objective Exam General Appearance: No Apparent Distress, Chronically ill Respiratory: No Accessory Muscle Use, No Respiratory Distress, Decreased Breath Sounds Cardiovascular: Regular Rate, Rhythm, No Murmur Gastrointestinal: non tender, soft, no organomegaly Neurologic/Psychiatric: Motor Weakness (severe 3/5 all extremities) Assessment/Plan Assessment/Plan Assessment/Plan Anemia - unknown etiology. Hgb 9.1 today, improved after 2unit transfusion Hemoccult+ - EGD/colonoscopy tomorrow Pneumonia LE weakness Hypoxia Plan for EGD and colonoscopy tomorrow. Supervisory-Addendum Brief Verification & Attestation Participated in pt care: history, MDM, physical Personally performed: exam, history, MDM Care discussed with: Medical Student Procedures: n/a Verification and Attestation of Medical Student E/M Service A medical student performed and documented this service. I then reviewed and verified all information documented by the medical student and made mod ifications to such information, when appropriate. I personally performed a physical exam, medical decision making and then discussed any differences between the notes and made revisions as necessary to create one note. Jose Duncan , 10/02/20 , 14:52 MICHAEL DORSEY MED STUDENT Oct 02, 2020 09:41 JOSE DUNCAN DO Oct 02, 2020 14:52
[2020-10-02 09:53] LABS: ALANINE AMINOTRANSFERASE 70 U/L (0-55); ALBUMIN 2.3 GM/DL (3.2-4.5); ALKALINE PHOSPHATASE 80 U/L (40-136); BILIRUBIN,TOTAL 0.6 MG/DL (0.1-1.0); BUN/CREATININE RATIO 51; CALCIUM 7.5 MG/DL (8.5-10.1); CARBON DIOXIDE 26 MMOL/L (21-32); CHLORIDE 107 MMOL/L (98-107); CREATININE SERUM 0.96 MG/DL (0.60-1.30); GFR ESTIMATED > 60; GLUCOSE 183 MG/DL (70-105); POTASSIUM 4.1 MMOL/L (3.6-5.0); SODIUM 142 MMOL/L (135-145); TOTAL PROTEIN 4.1 GM/DL (6.4-8.2)
[2020-10-02] MEDS: DOCUSATE SODIUM 100 MG (COLACE) CAP PO SCH ×2 (10:04→21:46)
[2020-10-02] MEDS: FOLIC ACID 1 MG TAB PO SCH (10:04)
[2020-10-02] MEDS: SENNA W/DOCUSATE (SENOKOT S) TABLET PO SCH ×2 (10:04→21:46)
[2020-10-02] MEDS: PANTOPRAZOLE 40 MG (PROTONIX) TAB PO SCH ×2 (10:04→22:18)
[2020-10-02] MEDS: MULTIVIT W/MINERALS TAB (THERAGRAN M) PO SCH (10:04)
[2020-10-02] MEDS: methylPREDNISolone 40 MG/ML (Solu-MEDROL) VIAL IV SCH (10:04)
[2020-10-02] MEDS: polyethylene glycoL POWDER 17 GM (MIRALAX) PACK PO SCH ×2 (10:05→21:44)
[2020-10-02] MEDS: FLUTICASONE NASAL SPRAY (FLONASE) 16 GM BTL NS SCH ×2 (10:05→21:47)
[2020-10-02] MEDS: SALIVA STIMULANT MOUTH SPRAY (BIOTENE) 1.5 OZ MM SCH ×3 (10:06→21:53)
[2020-10-02] MEDS: AMIODARONE 200 MG (CORDARONE) TAB PO SCH ×2 (10:24→21:46)
[2020-10-02] MEDS: NYSTATIN ORAL SUSP 5 ML UDC PO SCH ×4 (10:24→21:47)
--- NOTE | 2020-10-02 11:04 | Diagnostic Imaging Report ---
EXAMINATION: CHEST (PA AND LATERAL) CLINICAL INDICATION: 80-year-old male, shortness of breath. Rales. COMPARISON: September 30, 2020. FINDINGS: There is a left-sided PICC line nonparallel in position at the junction of the brachiocephalic vein and upper SVC. Stable overall appearance of the cardia mediastinal silhouette. There is no identified pneumothorax. There is blunting of the right and left lateral costophrenic angles. There are bilateral interstitial and alveolar opacities with unchanged appearance. IMPRESSION: 1. Unchanged bilateral interstitial and alveolar opacities. 2. No sizable layering pleural effusion. 3. Stable positioning of the left-sided PIC line. Dictated by: Dictated on workstation # [id number]
[2020-10-02] MEDS: SILDENAFIL 20 MG (REVATIO) TAB NON-FORMULARY PO SCH ×3 (11:05→21:46)
[2020-10-02] MEDS: aCETylcysteine 20% (MUCOMYST) 30ML SOLN VIAL PO SCH ×3 (11:50→21:45)
[2020-10-02] MEDS ORDERED: BISACODYL 5 MG (DULCOLAX) TABLET PO SCH ×2 (12:00→15:00)
[2020-10-02] MEDS: VANCOMYCIN 1500 MG/NS 500 ML IVPB IV SCH ×2 (13:48)
[2020-10-02] MEDS ORDERED: IRON SUCROSE 200 MG/10 ML (VENOFER) VIAL IV ONE (16:00)
[2020-10-02 16:35] VITALS: BP 145/69
[2020-10-02] MEDS ORDERED: polyethylene glycoL Bowel Prep(MIRALAX) 238 GM PO SCH (18:00)
[2020-10-02] MEDS: ALPRAZolam 0.25 MG (XANAX) TAB PO SCH (21:46)
[2020-10-03] MEDS: MEROPENEM 500 MG in WATER (STERILE) FOR INJECTION 10 ML IV SCH ×3 (02:52→12:47)
[2020-10-03] MEDS: inSUlin ASPART (NovoLOG) 1 UNIT/0.01 ML (CHARGE PER UNIT) SC SCH ×4 (05:10→21:23)
[2020-10-03 05:39] LABS: BASOPHILS % (AUTO) 0 % (0-10); EOSINOPHILS % (AUTO) 0 % (0-10); HEMATOCRIT 30 % (40-54); HEMOGLOBIN 9.4 g/dL (13.3-17.7); LYMPHOCYTES # (AUTO) 0.7 10^3/uL (1.0-4.0); LYMPHOCYTES % (AUTO) 6 % (12-44); MEAN CORPUSCULAR HEMOGLOBIN 30 pg (25-34); MEAN CORPUSCULAR HGB CONC 32 g/dL (32-36); MEAN CORPUSCULAR VOLUME 94 fL (80-99); MEAN PLATELET VOLUME 10.5 fL (9.0-12.2); MONOCYTES # (AUTO) 0.8 10^3/uL (0.0-1.0); MONOCYTES % (AUTO) 6 % (0-12); NEUTROPHILS # (AUTO) 10.9 10^3/uL (1.8-7.8); NEUTROPHILS % (AUTO) 86 % (42-75); PLATELET COUNT 156 10^3/uL (130-400); WHITE BLOOD COUNT 12.6 10^3/uL (4.3-11.0)
--- NOTE | 2020-10-03 05:45 | PM&R Progress Note ---
Subjective HPI/CC On Admission Date Seen by Provider: Oct 03, 2020 Time Seen by Provider: 05:45 Subjective/Events-last exam 10/03/20: Labs remain stable EGD/Colonoscopy will be performed by Dr Smith O2 maintained at current level Leg weakness is profound 10/02/20: Patient appears much better EGD/Colonoscopy tomorrow Patient reports scopes many years ago Hgb 9.3 stable Iron 46 so will give 1 dose of IV iron Really needs OAC but need scopes first then will start 10/01/2020: Patient much improved Meropenem and vancomycin maintained and tolerated well Status post 2 units of blood transfusion yesterday and now much improved hemoglobin of 9.1 Hemoccult stools are positive so contacted Dr. Smith and increase Protonix to 40 mg twice daily instead of just daily and listed pharmacological DVT prophylaxis is contraindicated due to active GI bleeding due suspicion from elevated BUN that bleeding is active Very complex issues Lungs sound much better Maintain on oxygen 6 L Slow recovery Legs are very weak severe myopathy noted 09/30/2020: Hemoglobin 6.8 and patient very symptomatic so we will transfuse 2 units with Lasix in between the units to prevent overload Still requiring [address] scan reviewed Patient had a better night sleep Denies any significant new issues Antibiotics maintain We will stop IV fluids Check meds and labs 09/29/20: Very complex issues overnight Reviewed chest x-ray done earlier in the day and it showed bilateral infiltrates and considering he had a Covid-like illness that prompted the hospital stay 1 month ago and considering his continued hypoxia managed with Lasix and steroids at [facility] I went ahead and did the sepsis work-up which revealed elevated lactic acid but not likely due to pneumonia but likely dehydration and volume depletion since he had thrush and was not eating or drinking well Covered him with broad-spectrum antibiotics Consulted Dr. Gamble Consulted Dr. Alanis IV fluids initiated Check echocardiogram Conferred with RN Reviewed therapy notes Check meds and labs Review of Systems General: Fatigue Pulmonary: Dyspnea Objective Exam Vital Signs Vital Signs Date Time Temp Pulse Resp B/P (MAP) Pulse Ox O2 Delivery O2 Flow Rate FiO2 10/04/20 01:00 67 10/03/20 20:30 Nasal Cannula 5.00 10/03/20 18:52 88 10/03/20 16:00 36.1 16 146/67 (93) 09/28/20 19:10 94 Capillary Refill : Less Than 3 Seconds General Appearance: No Apparent Distress, WD/WN, Chronically ill HEENT: PERRL/EOMI, Normal ENT Inspection, Pharynx Normal Neck: Full Range of Motion, Normal Inspection, Non Tender, Supple, Carotid Bruit Respiratory: Chest Non Tender, No Accessory Muscle Use, No Respiratory Distress, Decreased Breath Sounds Cardiovascular: Regular Rate, Rhythm, No Edema, No Gallop, No JVD, No Murmur, Normal Peripheral Pulses Gastrointestinal: Normal Bowel Sounds, No Organomegaly, No Pulsatile Mass, Non Tender, Soft Back: Normal Inspection, No CVA Tenderness, No Vertebral Tenderness Extremity: Normal Capillary Refill, Normal Inspection, Normal Range of Motion, Non Tender, No Calf Tenderness, No Pedal Edema Neurologic/Psychiatric: Alert, Oriented x3, Normal Mood/Affect, public safety director II-XII Norm as Tested, Abnormal Gait, Depressed Affect, Motor Weakness (severe 3/5 all extremities) Skin: Normal Color, Warm/Dry Lymphatic: No Adenopathy Results/Procedures Lab Patient resulted labs reviewed. FIM Transfers Therapy Code Descriptions/Definitions Functional [place] Measure: 0=Not Assessed/NA 4=Minimal Assistance 1=Total Assistance 5=Supervision or Setup 2=Maximal Assistance 6=Modified [place] 3=Moderate Assistance 7=Complete IndependenceSCALE: Activities may be completed with or without assistive devices. 1-Dmmttyyvii-wzlhiim completes the activity by him/herself with no assistance from a helper. 5-Set-up or Clean-up Assistance-helper sets up or cleans up; patient completes activity. [place] assists only prior to or following the activity. 4-Supervision or Touching Assistance-helper provides verbal cues and/or touching/steadying and/or contact guard assistance as patient completes activity. Assistance may be provided throughout the activity or intermittently. 3-Partial/Moderate Assistance-helper does LESS THAN HALF the effort. [place] lifts, holds or supports trunk or limbs, but provides less than half the effort. 2-Substantial/Maximal Assistance-helper does MORE THAN HALF the effort. [place] lifts or holds trunk or limbs and provides more than half the effort. 5-Dysbsocfm-aybdnr does ALL the effort. Patient does none of the effort to complete the activity. Or, the assistance of 2 or more helpers is required for the patient to complete the activity. If activity was not attempted, code reason: 7-Patient Refused. 9-Not Applicable-not attempted and the patient did not perform the activity before the current illness, exacerbation or injury. 10-Not Attempted due to Environmental Limitations-(lack of equipment, weather restraints, etc.). 88-Not Attempted due to Medical Conditions or Safety Concerns. Roll Left to Right (QC): 3 Sit to Lying (QC): 2 Sit to Stand (QC): 2 Chair/Gtq-al-Tmggs Xfer(QC): 2 Car Transfer (QC): 1 Gait Training Does the Patient Walk?: No and Walking Goal IS indicated Walk 10 feet (QC): 3 Walk 50 ft with 2 Turns(QC): 88 Walk 150 ft (QC): 88 Walking 10ft/uneven surface-QC: 88 Wheelchair Training Does the Pt Use a Wheelchair?: Yes Wheel 50 ft with 2 turns (QC): 3 Wheel 150 ft (QC): 1 Type of Wheelchair: Manual Stair Training 1 Step (curb) (QC): 88 4 Steps (QC): 88 12 Steps (QC): 88 Balance Picking up an Object (QC): 88 ADL-Treatment Eating (QC): 6 (Pt indicates independent with feeding. No difficulty with lunch, able to cut his food, use utensils, and bring food/drink to mouth.) Oral Hygiene (QC): 5 (set up at bed level) Shower/Bathe Self (QC): 2 (Sponge bath max A, pt able to wash arms, chest/stomach, required assistance for thoroughness. OT washed all other parts.) Upper Body Dressing (QC): 3 ([place]) Lower Body Dressing (QC): 1 (OT dependently changed soiled brief at bed level, mod A for rolling side to side.) On/Off Footwear (QC): 1 (total assist donning TEDhose and gripper socks.) Toileting Hygiene (QC): 1 (Total assist at bed level to change soiled brief and perform hygiene. Mod A with rolling side to side.) Assessment/Plan Assessment and Plan Assess & Plan/Chief Complaint Assessment: COPD myopathy Hypoxia Abnormal CXR Thrush Coumadin treatment Respiratory failure DM GERD PHTN Plan: Check INR IRF protocol Dr Alanis and Dr Gamble consulted 09/29/20: Broad-spectrum antibiotics Pulmonology consultation Check labs Monitor oxygen level Monitor closely 09/30/20: Transfused 2 units of blood Hep-Lock IV fluid to prevent overload Lasix in between the blood Monitor oxygen level Maintain antibiotics Very complex issues 10/01/2020: Increase proton pump inhibitor to twice a day Consult Dr. Smith Noted elevated BUN with severe anemia status post 2 units of blood transfusion yesterday high suspicion for GI bleed likely upper from stress gastritis or ulcer Maintain antibiotics Monitor closely due to high risk for decompensation 10/02/20: Scopes tomorrow Monitor hgb closely Iron infusion x 1 Check labs in am Abx to be maintained 10/03/20: Scopes Monitor closely Monitor hgb O2 wean (1) Myopathy (2) Atrial fibrillation (3) Warfarin anticoagulation (4) Diabetes mellitus (5) COPD (chronic obstructive pulmonary disease) (6) Hypoxemia (7) Volume overload (8) SAEID Melchor DO Oct 03, 2020 05:45
[2020-10-03 05:50] LABS: ALBUMIN 2.3 GM/DL (3.2-4.5); CHLORIDE 108 MMOL/L (98-107); POTASSIUM 3.6 MMOL/L (3.6-5.0); SODIUM 144 MMOL/L (135-145)
[2020-10-03 05:51] LABS: CALCIUM 7.1 MG/DL (8.5-10.1)
[2020-10-03 05:52] LABS: GLUCOSE 76 MG/DL (70-105); TOTAL PROTEIN 4.1 GM/DL (6.4-8.2)
[2020-10-03 05:53] LABS: CARBON DIOXIDE 26 MMOL/L (21-32)
[2020-10-03 05:54] LABS: BILIRUBIN,TOTAL 0.6 MG/DL (0.1-1.0)
[2020-10-03 05:56] LABS: ALKALINE PHOSPHATASE 85 U/L (40-136); GFR ESTIMATED > 60
[2020-10-03 05:57] LABS: BUN/CREATININE RATIO 49
[2020-10-03 05:59] LABS: ALANINE AMINOTRANSFERASE 63 U/L (0-55)
[2020-10-03 06:04] VITALS: BP 159/66
[2020-10-03] MEDS: RT-ALBUTEROL/IPRATROPIUM 3 ML (DUONEB) VIAL IH SCH ×4 (07:56→18:52)
[2020-10-03] MEDS: ADVAIR HFA 115/21 MCG INHALER 8 GM IH SCH (08:00)
[2020-10-03] MEDS: MULTIVIT W/MINERALS TAB (THERAGRAN M) PO SCH (08:19)
[2020-10-03] MEDS: AMIODARONE 200 MG (CORDARONE) TAB PO SCH ×2 (08:19→21:09)
[2020-10-03] MEDS: SENNA W/DOCUSATE (SENOKOT S) TABLET PO SCH ×2 (08:19→21:10)
[2020-10-03] MEDS: FOLIC ACID 1 MG TAB PO SCH (08:19)
[2020-10-03] MEDS: DOCUSATE SODIUM 100 MG (COLACE) CAP PO SCH ×2 (08:19→21:09)
[2020-10-03] MEDS: polyethylene glycoL POWDER 17 GM (MIRALAX) PACK PO SCH ×2 (08:19→21:47)
[2020-10-03] MEDS: methylPREDNISolone 40 MG/ML (Solu-MEDROL) VIAL IV SCH (08:19)
[2020-10-03] MEDS: PANTOPRAZOLE 40 MG (PROTONIX) TAB PO SCH ×2 (08:19→21:09)
[2020-10-03] MEDS: NYSTATIN ORAL SUSP 5 ML UDC PO SCH ×4 (08:19→21:09)
[2020-10-03] MEDS: aCETylcysteine 20% (MUCOMYST) 30ML SOLN VIAL PO SCH ×2 (08:19→21:08)
[2020-10-03] MEDS: SILDENAFIL 20 MG (REVATIO) TAB NON-FORMULARY PO SCH ×3 (08:27→21:09)
[2020-10-03] MEDS: SALIVA STIMULANT MOUTH SPRAY (BIOTENE) 1.5 OZ MM SCH ×3 (08:27→21:11)
[2020-10-03] MEDS: FLUTICASONE NASAL SPRAY (FLONASE) 16 GM BTL NS SCH ×2 (08:27→21:11)
--- NOTE | 2020-10-03 10:24 | NUR ---
To endo at this time. Enema x 3 given, pt cont with formed stool. Dr Smith notified and stated to send anyway. Meds given this am. Insulin held per order. 02 at 10L/NC.
--- NOTE | 2020-10-03 10:35 | Progress Note - Surgery ---
Subjective Time Seen by a Provider: 10:30 Subjective/Events-last exam Pt seen and examined, states he feels weak and still mild SOB. Ready to have EGD and colonoscopy. Nurse stated this am was still having BM's and I ordered enemas, but apparently that did not clear everything. Review of Systems General: Fatigue, Malaise Pulmonary: Dyspnea, Cough Cardiovascular: No: Chest Pain Gastrointestinal: No: Nausea, Vomiting, Abdominal Pain Neurological: Weakness Objective Exam Vital Signs Date Time Temp Pulse Resp B/P (MAP) Pulse Ox O2 Delivery O2 Flow Rate FiO2 10/03/20 09:12 Nasal Cannula 5.00 10/03/20 08:02 10.00 10/03/20 07:56 86 High Flow N/C 8.00 10/03/20 07:36 59 10/03/20 06:49 69 10/03/20 06:04 36.3 67 19 159/66 (97) 90 Nasal Cannula 5.00 10/03/20 01:00 59 10/02/20 20:30 90 Nasal Cannula 8.00 10/02/20 19:00 79 10/02/20 16:35 36.2 69 22 145/69 (94) 90 Nasal Cannula 5.00 10/02/20 12:20 71 10/02/20 11:51 95 High Flow N/C 5.00 I & O 10/03/20 07:00 Intake Total 1800 ml Balance 1800 ml Capillary Refill : Less Than 3 Seconds General Appearance: No Apparent Distress, Chronically ill HEENT: PERRL/EOMI, Pharynx Normal Respiratory: Chest Non Tender, No Accessory Muscle Use, No Respiratory Distress, Decreased Breath Sounds Cardiovascular: Regular Rate, Rhythm, No Murmur Gastrointestinal: non tender, soft, no organomegaly Neurologic/Psychiatric: Alert, Oriented x3, Abnormal Gait, Depressed Affect, Motor Weakness (severe 3/5 all extremities) Results Lab Laboratory Tests 10/02/20 11:28: Glucometer 202H 10/02/20 15:34: Glucometer 188H 10/02/20 21:06: Glucometer 307H 10/03/20 05:10: Glucometer 77, White Blood Count 12.6H, Red Blood Count 3.18L, Hemoglobin 9.4L, Hematocrit 30L, Mean Corpuscular Volume 94, Mean Corpuscular Hemoglobin 30, Mean Corpuscular Hemoglobin Concent 32, Red Cell Distribution Width 17.9H, Platelet Count 156, Mean Platelet Volume 10.5, Immature Granulocyte % (Auto) 1, Neutrophils (%) (Auto) 86H, Lymphocytes (%) (Auto) 6L, Monocytes (%) (Auto) 6, Eosinophils (%) (Auto) 0, Basophils (%) (Auto) 0, Neutrophils # (Auto) 10.9H, Lymphocytes # (Auto) 0.7L, Monocytes # (Auto) 0.8, Eosinophils # (Auto) 0.0, Basophils # (Auto) 0.0, Immature Granulocyte # (Auto) 0.2H, Sodium Level 144, Potassium Level 3.6, Chloride Level 108H, Carbon Dioxide Level 26, Anion Gap 10, Blood Urea Nitrogen 39H, Creatinine 0.80, Estimat Glomerular Filtration Rate > 60, BUN/Creatinine Ratio 49, Glucose Level 76, Calcium Level 7.1L, Corrected Calcium 8.5, Total Bilirubin 0.6, Aspartate Amino Transf (AST/SGOT) 27, Alanine Aminotransferase (ALT/SGPT) 63H, Alkaline Phosphatase 85, Total Protein 4.1L, Albumin 2.3L, Smear Scan Microbiology 10/02/20 MRSA Screen - Final, Complete MRSA not isolated 09/28/20 Blood Culture - Preliminary, Resulted No growth Assessment/Plan Assessment/Plan Assessment/Plan Anemia - unknown etiology. Hgb 9.4 today, stable after transfusion Hemoccult+ Pneumonia LE weakness Hypoxia Plan for EGD and colonoscopy today to help workup anemia and hemoccult +. Pt had no questions. Clinical Quality Measures DVT/VTE Risk/Contraindication: Risk Factor Score Per Nursin RFS Level Per Nursing on Admit: 4+=Very High Contraindications-Pharm: Other *list below* Other: YANN ERICKSON DO Oct 03, 2020 10:35
--- NOTE | 2020-10-03 11:56 | Physical Therapy Daily Note ---
PT Daily Note-Current Subjective Patient in bed pre tx, agrees to PT, will be co-treating with OT due to poor patient mobility, strength, endurance, SOB, the need to coordinate UE and LE during activity. Patient has been having enemas to prepare him to have a colonoscopy this morning, they are supposed to come get him any time, will work with patient until they come get him. Patient has no complaints of pain. Appearance Patient in bed post tx, going with workers to have a colonoscopy Mental Status Patient Orientation: Person, Place, Situation Attachments: Oxygen Transfers SCALE: Activities may be completed with or without assistive devices. 9-Qyisgxuobt-rwcuyuj completes the activity by him/herself with no assistance from a helper. 5-Set-up or Clean-up Assistance-helper sets up or cleans up; patient completes activity. [place] assists only prior to or following the activity. 4-Supervision or Touching Assistance-helper provides verbal cues and/or touching/steadying and/or contact guard assistance as patient completes activity. Assistance may be provided throughout the activity or intermittently. 3-Partial/Moderate Assistance-helper does LESS THAN HALF the effort. [place] lifts, holds or supports trunk or limbs, but provides less than half the effort. 2-Substantial/Maximal Assistance-helper does MORE THAN HALF the effort. [place] lifts or holds trunk or limbs and provides more than half the effort. 0-Vpmyleeon-zrwzcw does ALL the effort. Patient does none of the effort to complete the activity. Or, the assistance of 2 or more helpers is required for the patient to complete the activity. If activity was not attempted, code reason: 7-Patient Refused. 9-Not Applicable-not attempted and the patient did not perform the activity before the current illness, exacerbation or injury. 10-Not Attempted due to Environmental Limitations-(lack of equipment, weather restraints, etc.). 88-Not Attempted due to Medical Conditions or Safety Concerns. Roll Left & Right (QC): 3 Patient has had a BM, needs rolling from side to side for cleaning and changing bed. During this the endo workers come to take him. Treatments PT works on rolling, positioning, safety, assist with cleaning, OT worked on cleaning, UE positioning and safety. Assessment Current Status: Poor Progress no progress with functional mobility PT Short Term Goals Short Term Goals Time Frame: Oct 05, 2020 Roll Left & Right: 4 Sit to lyin Lying to sitting on side of be: 3 Sit to stand: 2 Chair/cfg-gd-acdpz transfer: 2 PT Custodial Goals Tank House Operator Goals PT Custodial Goals Time Frame: Oct 19, 2020 Roll Left & Right (QC): 6 Sit to Lying (QC): 6 Lying-Sitting on Side/Bed(QC): 6 Sit to Stand (QC): 3 Chair/Pqw-ak-Jqgue Xfer(QC): 3 Toilet Transfer (QC): 3 Car Transfer (QC): 1 Does the Patient Walk: Yes Walk 10 feet (QC): 3 Walk 50ft with 2 Turns (QC): 88 Walk 150 ft (QC): 88 Walking 10ft on Uneven Surface: 88 1 Step (curb) (QC): 88 4 Steps (QC): 88 12 Steps (QC): 88 Picking up an Object (QC): 88 Wheel 50 feet with 2 turns (QC: 4 Wheel 150 feet: 4 PT Plan Problem List Problem List: Activity Tolerance, Functional Strength, Safety, Balance, Gait, Transfer, Bed Mobility, ROM Treatment/Plan Treatment Plan: Continue Plan of Care Treatment Plan: Bed Mobility, Education, Functional Activity [place], Functional Strength, Group Therapy, Gait, Safety, Therapeutic Exercise, Transfers Treatment Duration: Oct 19, 2020 Frequency: At least 5 of 7 days/Wk (IRF) Estimated Hrs Per Day: 1.5 hours per day Patient and/or Family Agrees t: Yes Safety Risks/Education Patient Education: Correct Positioning, Safety Issues Teaching Recipient: Patient Teaching Methods: Demonstration, Discussion Response to Teaching: Reinforcement Needed Time/GCodes Time In: 1000 Time Out: 1025 Total Billed Treatment Time: 25 Total Billed Treatment 1 visit FA 25' co-treated for 25' CLAYTON GARCIA PT Oct 03, 2020 11:56
[2020-10-03] MEDS ORDERED: BISACODYL 5 MG (DULCOLAX) TABLET PO ONE ×2 (13:13→14:00)
--- NOTE | 2020-10-03 13:17 | Occupational Ther Daily Note ---
OT Current Status-Daily Note Subjective Pt agreeable to OT tx, declined pain on this date. ADL-Treatment Therapy Code Descriptions/Definitions Functional [place] Measure: 0=Not Assessed/NA 4=Minimal Assistance 1=Total Assistance 5=Supervision or Setup 2=Maximal Assistance 6=Modified [place] 3=Moderate Assistance 7=Complete IndependenceSCALE: Activities may be completed with or without assistive devices. 0-Xfplxmmtli-aedckpr completes the activity by him/herself with no assistance from a helper. 5-Set-up or Clean-up Assistance-helper sets up or cleans up; patient completes activity. [place] assists only prior to or following the activity. 4-Supervision or Touching Assistance-helper provides verbal cues and/or touching/steadying and/or contact guard assistance as patient completes activity. Assistance may be provided throughout the activity or intermittently. 3-Partial/Moderate Assistance-helper does LESS THAN HALF the effort. [place] lifts, holds or supports trunk or limbs, but provides less than half the effort. 2-Substantial/Maximal Assistance-helper does MORE THAN HALF the effort. [place] lifts or holds trunk or limbs and provides more than half the effort. 5-Vwqkpvsoq-jljalm does ALL the effort. Patient does none of the effort to complete the activity. Or, the assistance of 2 or more helpers is required for the patient to complete the activity. If activity was not attempted, code reason: 7-Patient Refused. 9-Not Applicable-not attempted and the patient did not perform the activity before the current illness, exacerbation or injury. 10-Not Attempted due to Environmental Limitations-(lack of equipment, weather restraints, etc.). 88-Not Attempted due to Medical Conditions or Safety Concerns. Shower/Bathe Self (QC): 2 (Sponge bath, pt washed BUEs, chest and abdomen. OT washed all other parts.) Lower Body Dressing (QC): 1 (total assist with donning socks.) Toileting Hygiene (QC): 1 (Total assist changing brief and performing hyiene after BM) Other Treatment [id number]: OT/PT cotreat due to skill of 2 clinicians required that a rehabilitation aide/scheduler could not perform in order to coordinate UE/LE and due to pt's limitations in strength, functional mobility, endurance, and transfers. OT focused on ADLS, UE placement, cues for sequencing and safety, while PT focused on LE placement, gross overall movements, and transfers/rolling side to side. Pt indicates he is going to have a colonoscopy on this date. Pt rolled side to side for toilet hygiene, due to having BM in bed. Sponge bath complete on bed level, then clean gown donned. Pt taken down for colonoscopy at this time. [id number] OT Tx: Pt states he had a BM, multiple staff members required to roll pt side to side, complete hygiene post bowel movement, and change sheets. [id number]: OT/PT cotreat due to skill of 2 clinicians required that a rehabilitation aide/scheduler could not perform in order to coordinate UE/LE and due to pt's limitations in strength, functional mobility, endurance, and transfers. OT focused on ADLS, UE placement, cues for sequencing and safety, while PT focused on LE placement, gross overall movements, and transfers. Pt transferred supine to sit EOB with assistance of LEs and trunk. Pt sat EOB completing fine motor activity on table to increase BUE strength/endurance, and dynamic sitting balance. Pt required frequent rest breaks, but indicates he feels good sitting upright. Pt completed alternated UE activity and LE exercises while sitting EOB. Post OT tx, pt seated EOB, pt present to continue tx, all needs met. Education OT Patient Education: Correct positioning, Modified ADL techniques, Progress toward Goal/Update tx plan, Purpose of tx/functional activities Teaching Recipient: Patient Teaching Methods: Discussion Response to Teaching: Verbalize Understanding OT Short Term Goals Short Term Goals Time Frame: Oct 10, 2020 Toileting hygiene: 2 Shower/bathe self: 2 Lower body dressin Putting on/taking off footwear: 2 OT Half-Way Goals Half-Way Goals Time Frame: Oct 21, 2020 Eating (QC): 6 Oral Hygiene (QC): 6 Toileting Hygiene (QC): 4 Shower/Bathe Self (QC): 4 Upper Body Dressing (QC): 5 Lower Body Dressing (QC): 4 On/Off Footwear (QC): 4 1=Demonstrate adherence to instructed precautions during ADL tasks. 2=Patient will verbalize/demonstrate understanding of assistive devices/frankie fications for ADL. 3=Patient will improve strength/tolerance for activity to enable patient to perform ADL's. OT Education/Plan Problem List/Assessment Assessment: Decreased Activ Tolerance, Decreased UE Strength, Impaired Bed Mobility, Impaired Funct Balance, Impaired I ADL's, Impaired Self-Care Skills Discharge Recommendations Plan/Recommendations: Continue POC Treatment Plan/Plan of Care Patient would benefit from OT for education, treatment and training to promote independence in ADL's, mobility, safety and/or upper extremity function for ADL's. Plan of Care: ADL Retraining, Functional Mobility, Group Exercise/Act as Ind, UE Funct Exercise/Act Treatment Duration: Oct 21, 2020 Frequency: At least 5 of 7 days/Wk (IRF) Estimated Hrs Per Day: 1.5 hours per day Agreement: Yes Rehab Potential: Fair Time/GCodes Start Time: 10:00 ([id number]) Stop Time: 14:05 ([id number]) Total Time Billed (hr/min): 90 Billed Treatment Time 0809-0541 (25' cotreat) 1, ADL 2 [id number] (30' OT tx), [id number] (35' Cotreat) 1, ADL 2 (30'), FA 2 (35') ALEXUS PACHECO OT Oct 03, 2020 13:17
[2020-10-03] MEDS ORDERED: fluCOnazole (DIFLUCAN) 100 MG TAB ONE (13:40)
[2020-10-03] MEDS: fluCOnazole (DIFLUCAN) 100 MG TAB PO SCH (13:46)
--- NOTE | 2020-10-03 13:59 | NUR ---
Vanessa Edmond DPOA updated on pt status at this time. Pt working with therapy at this tie. Alert and cheerful. Joking with staff. Will cont bowel prep for colonoscopy tomorrow.
[2020-10-03] MEDS: NYSTATIN CREAM (MYCOSTATIN) 30 GM TUBE TP SCH ×2 (14:20→21:11)
[2020-10-03] MEDS: MICONAZOLE 2% POWDER (DESENEX AF) 90 GM TOP SCH ×3 (14:20→21:11)
--- NOTE | 2020-10-03 14:28 | Physical Therapy Daily Note ---
PT Daily Note-Current Subjective Patient in bed pre tx, agrees to PT, has no complaints of pain. Will be co- treating with OT for part of tx due to poor patient mobility, strength, endurance, SOB, coordinate UE with LE during activity, safety and decrease risk of falls. OT has already been working in room at PT enters. They just got patient changed and cleaned from a BM. Appearance Patient in bed post tx with nurse call, phone, tray, all needs met. Mental Status Patient Orientation: Normal For Age Attachments: Oxygen Transfers SCALE: Activities may be completed with or without assistive devices. 7-Bfqzqevlyv-ipgghta completes the activity by him/herself with no assistance from a helper. 5-Set-up or Clean-up Assistance-helper sets up or cleans up; patient completes activity. [place] assists only prior to or following the activity. 4-Supervision or Touching Assistance-helper provides verbal cues and/or touching/steadying and/or contact guard assistance as patient completes activity. Assistance may be provided throughout the activity or intermittently. 3-Partial/Moderate Assistance-helper does LESS THAN HALF the effort. [place] lifts, holds or supports trunk or limbs, but provides less than half the effort. 2-Substantial/Maximal Assistance-helper does MORE THAN HALF the effort. [place] lifts or holds trunk or limbs and provides more than half the effort. 7-Njjkpvuqh-otnvwu does ALL the effort. Patient does none of the effort to complete the activity. Or, the assistance of 2 or more helpers is required for the patient to complete the activity. If activity was not attempted, code reason: 7-Patient Refused. 9-Not Applicable-not attempted and the patient did not perform the activity before the current illness, exacerbation or injury. 10-Not Attempted due to Environmental Limitations-(lack of equipment, weather restraints, etc.). 88-Not Attempted due to Medical Conditions or Safety Concerns. Roll Left & Right (QC): 3 Sit to Lying (QC): 3 Lying to Sitting/Side of Bed(Q: 3 Patient sits on the side of the bed with mod assist, he sits there for about 20 min, alternating between LE exercise and UE OT activity, the whole time working on trunk strengthening and stability, patient needs frequent rest breaks. Patient lays back down and has another BM, has to roll many times for cleaning and changing gown and brief. Exercises Supine Ex: Ankle pumps, Heel Slides Supine Reps: 20 Seated Therapy Exercises: Ankle pumps, Long arc quads, Hip flexion Seated Reps: 20 Treatments PT worked on LE exercise, trunk strengthening and stability, bed mobility and rolling, OT worked on UE strengthening, assist with rolling and bed mobility. Assessment Current Status: Fair Progress slowly improving strength PT Short Term Goals Short Term Goals Time Frame: Oct 05, 2020 Roll Left & Right: 4 Sit to lyin Lying to sitting on side of be: 3 Sit to stand: 2 Chair/wbf-pj-ulnbu transfer: 2 PT Plaster Mechanic Goals Senior Living Goals PT Senior Living Goals Time Frame: Oct 19, 2020 Roll Left & Right (QC): 6 Sit to Lying (QC): 6 Lying-Sitting on Side/Bed(QC): 6 Sit to Stand (QC): 3 Chair/Xqj-tu-Eahgq Xfer(QC): 3 Toilet Transfer (QC): 3 Car Transfer (QC): 1 Does the Patient Walk: Yes Walk 10 feet (QC): 3 Walk 50ft with 2 Turns (QC): 88 Walk 150 ft (QC): 88 Walking 10ft on Uneven Surface: 88 1 Step (curb) (QC): 88 4 Steps (QC): 88 12 Steps (QC): 88 Picking up an Object (QC): 88 Wheel 50 feet with 2 turns (QC: 4 Wheel 150 feet: 4 PT Plan Problem List Problem List: Activity Tolerance, Functional Strength, Safety, Balance, Gait, Transfer, Bed Mobility, ROM Treatment/Plan Treatment Plan: Continue Plan of Care Treatment Plan: Bed Mobility, Education, Functional Activity [place], Functional Strength, Group Therapy, Gait, Safety, Therapeutic Exercise, Transfers Treatment Duration: Oct 19, 2020 Frequency: At least 5 of 7 days/Wk (IRF) Estimated Hrs Per Day: 1.5 hours per day Patient and/or Family Agrees t: Yes Safety Risks/Education Patient Education: Correct Positioning, Safety Issues Teaching Recipient: Patient Teaching Methods: Demonstration, Discussion Response to Teaching: Reinforcement Needed Time/GCodes Time In: 1330 Time Out: 1435 Total Billed Treatment Time: 65 Total Billed Treatment 1 visit EX 20' FA 45' CLAYTON GARCIA PT Oct 03, 2020 14:28
--- NOTE | 2020-10-03 14:55 | Cardiology Progress Note ---
Subjective Date Seen by Provider: Oct 03, 2020 Time Seen by Provider: 09:00 Subjective/Events-last exam Patient is sitting up in bed, denies any chest pain or palpitations. Review of Systems General: No Chills, No Night Sweats, No Fatigue, No Malaise, No Appetite, No Other HEENT: No Head Aches, No Visual Changes, No Eye Pain, No Ear Pain, No Dysphasia, No Sinus Congestion, No Post Nasal Drip, No Sore Throat, No Other Pulmonary: No Dyspnea, No Cough, No Pleuritic Chest Pain, No Other Cardiovascular: No: Chest Pain, Palpitations, Orthopnea, Paroxysmal Noc. Dyspnea, Edema, Lt Headedness, Other Objective-Cardiology Exam Last Set of Vital Signs Vital Signs 09/28/20 10/03/20 10/03/20 10/03/20 19:10 06:04 12:37 15:42 Temp 36.3 Pulse 70 Resp 19 B/P (MAP) 159/66 (97) Pulse Ox 100 O2 Delivery Nasal Cannula O2 Flow Rate 10.00 FiO2 94 Capillary Refill : Less Than 3 Seconds I&O Intake and Output 10/03/20 00:00 Intake Total 1700 ml Balance 1700 ml Intake Oral 1700 ml # Voids 4 # Urine Diapers 5 # Bowel Movements 4 General: Alert, Oriented X3, Cooperative HEENT: Atraumatic, PERRLA Neck: Supple, No JVD, No Thyromegaly Lungs: Clear to Auscultation, Normal Air Movement Heart: Regular Rate, Normal S1, Normal S2, No Murmurs Abdomen: Normal Bowel Sounds, Soft, No Tenderness, No Hepatosplenomegaly, No Masses Extremities: No Clubbing, No Cyanosis, No Edema, Normal Pulses, No Ten derness/Swelling Skin: No Rashes, No Breakdown, No Significant Lesion Neuro: Normal Gait, Normal Speech, Strength at 5/5 X4 Ext, Normal Tone, Sensation Intact Psych/Mental Status: Mental Status NL, Mood NL Results Lab Laboratory Tests 10/03/20 05:10 A/P-Cardiology Admission Diagnosis Pneumonia Anemia PAF DM Assessment/Plan Pneumonia with sepsis - management per Dr Perez and Pulrosemarie kerr Anemia of undetermined etiology - underwent EGD and colonoscopy this morning, results pending. PAF, currently sinus rhythm EKG of 09-29-2020 showed RBBB of unknown length of time OAC with warfarin Echocardiogram of Sep 28, 2020 showed LVEF 55-65%. 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 Perez Patient was seen and evaluated with Anny, examination performed, management plan was discussed, agree with the current scribed note, I made few changes to the note using Italic font Patient was seen and evaluated, feeling better Had EGD and colonoscopy done this morning Continue on current treatment, no changes are recommended, monitor H&H I recommend restarting Coumadin and monitor INR Clinical Quality Measures DVT/VTE Risk/Contraindication: Risk Factor Score Per Nursin RFS Level Per Nursing on Admit: 4+=Very High Contraindications-Pharm: Other *list below* Other: ANNY ANDERSON Oct 03, 2020 2:55 pm ANIKA SHEPHERD MD Oct 03, 2020 5:24 pm
[2020-10-03 16:00] VITALS: BP 146/67
[2020-10-03] MEDS ORDERED: BISACODYL 5 MG (DULCOLAX) TABLET PO NR (16:00)
[2020-10-03] MEDS: warFARin 1 MG (COUMADIN) TAB PO SCH (17:25)
[2020-10-03] MEDS ORDERED: MAGNESIUM CITRATE 300 ML BTL PO NR (20:00)
[2020-10-03] MEDS ORDERED: MICONAZOLE 2% POWDER (DESENEX AF) 90 GM TOP SCH (21:00)
[2020-10-03] MEDS: ALPRAZolam 0.25 MG (XANAX) TAB PO SCH (21:09)
[2020-10-04] MEDS: inSUlin ASPART (NovoLOG) 1 UNIT/0.01 ML (CHARGE PER UNIT) SC SCH ×4 (05:42→21:08)
[2020-10-04] MEDS ORDERED: D5 1/2 NS 1000 ML IV SOLUTION 1,000 ML IV SCH (05:45)
[2020-10-04] MEDS ORDERED: DEXTROSE 50% 50 ML (IMS) SYR IV ONE (05:45)
[2020-10-04] MEDS ORDERED: D5 NS 1000 ML IV SOLUTION 1,000 ML IV ONE (05:47)
[2020-10-04] MEDS: D5 NS 1000 ML IV SOLUTION 1,000 ML IV SCH (06:06)
[2020-10-04 06:11] LABS: BASOPHILS % (AUTO) 0 % (0-10); EOSINOPHILS # (AUTO) 0.1 10^3/uL (0.0-0.3); EOSINOPHILS % (AUTO) 1 % (0-10); HEMATOCRIT 30 % (40-54); HEMOGLOBIN 9.3 g/dL (13.3-17.7); LYMPHOCYTES # (AUTO) 0.7 10^3/uL (1.0-4.0); LYMPHOCYTES % (AUTO) 5 % (12-44); MEAN CORPUSCULAR HEMOGLOBIN 30 pg (25-34); MEAN CORPUSCULAR HGB CONC 31 g/dL (32-36); MEAN CORPUSCULAR VOLUME 95 fL (80-99); MEAN PLATELET VOLUME 10.9 fL (9.0-12.2); MONOCYTES # (AUTO) 0.9 10^3/uL (0.0-1.0); MONOCYTES % (AUTO) 6 % (0-12); NEUTROPHILS # (AUTO) 12.9 10^3/uL (1.8-7.8); NEUTROPHILS % (AUTO) 88 % (42-75); PLATELET COUNT 148 10^3/uL (130-400); WHITE BLOOD COUNT 14.7 10^3/uL (4.3-11.0)
[2020-10-04 06:20] VITALS: BP 127/60
[2020-10-04 06:29] LABS: ALBUMIN 2.2 GM/DL (3.2-4.5); CHLORIDE 109 MMOL/L (98-107); INR 1.9 (0.8-1.4); POTASSIUM 3.2 MMOL/L (3.6-5.0); PROTHROMBIN TIME PATIENT 21.9 SEC (12.2-14.7); SODIUM 144 MMOL/L (135-145)
[2020-10-04 06:33] LABS: CARBON DIOXIDE 27 MMOL/L (21-32)
[2020-10-04 06:34] LABS: BILIRUBIN,TOTAL 0.6 MG/DL (0.1-1.0)
[2020-10-04 06:35] LABS: ALKALINE PHOSPHATASE 82 U/L (40-136); CREATININE SERUM 0.79 MG/DL (0.60-1.30); GFR ESTIMATED > 60
[2020-10-04 06:36] LABS: BUN/CREATININE RATIO 44
[2020-10-04 06:38] LABS: ALANINE AMINOTRANSFERASE 64 U/L (0-55)
[2020-10-04 06:40] LABS: GLUCOSE 55 MG/DL (70-105)
[2020-10-04] MEDS: RT-ALBUTEROL/IPRATROPIUM 3 ML (DUONEB) VIAL IH SCH ×2 (06:56→14:18)
--- NOTE | 2020-10-04 08:16 | Cardiology Progress Note ---
Subjective Date Seen by Provider: Oct 04, 2020 Time Seen by Provider: 08:15 Subjective/Events-last exam Patient is sitting up at bedside with PT. Denies any chest pain or dyspnea. Review of Systems General: No Chills, No Night Sweats; Fatigue, Malaise; No Appetite, No Other HEENT: No Head Aches, No Visual Changes, No Eye Pain, No Ear Pain, No Dysphasia, No Sinus Congestion, No Post Nasal Drip, No Sore Throat, No Other Pulmonary: No Dyspnea, No Cough, No Pleuritic Chest Pain, No Other Cardiovascular: No: Chest Pain, Palpitations, Orthopnea, Paroxysmal Noc. Dyspnea, Edema, Lt Headedness, Other Objective-Cardiology Exam Last Set of Vital Signs Vital Signs 09/28/20 10/04/20 10/04/20 10/04/20 19:10 06:20 06:38 11:48 Temp 36.3 Pulse 69 Resp 18 B/P (MAP) 127/60 (82) Pulse Ox 91 O2 Delivery High Flow N/C O2 Flow Rate 8.00 FiO2 94 Capillary Refill : Less Than 3 Seconds I&O Intake and Output 10/04/20 00:00 Intake Total 1960 ml Balance 1960 ml Intake Oral 1960 ml # Voids 5 # Urine Diapers 10 # Bowel Movements 18 General: Alert, Oriented X3, Cooperative HEENT: Atraumatic, PERRLA Neck: Supple, No JVD, No Thyromegaly Lungs: Clear to Auscultation, Normal Air Movement Heart: Regular Rate, Normal S1, Normal S2, No Murmurs Abdomen: Normal Bowel Sounds, Soft, No Tenderness, No Hepatosplenomegaly, No Masses Extremities: No Clubbing, No Cyanosis, No Edema, Normal Pulses, No Te nderness/Swelling Skin: No Rashes, No Breakdown, No Significant Lesion Neuro: Normal Gait, Normal Speech, Strength at 5/5 X4 Ext, Normal Tone, Sensation Intact Psych/Mental Status: Mental Status NL, Mood NL Results Lab Laboratory Tests 10/04/20 05:55 A/P-Cardiology Admission Diagnosis Pneumonia Anemia PAF DM Assessment/Plan Pneumonia with sepsis - management per Dr Perez and Pulrosemarie kerr Anemia of undetermined etiology - underwent EGD and colonoscopy yesterday, results pending. PAF, currently sinus rhythm, OAC with warfarin which was restarted yesterday. INR 1.9, continue to monitor. Hypokalemia, replace and continue to monitor. EKG of 09-29-2020 showed RBBB of unknown length of time Echocardiogram of Sep 28, 2020 showed LVEF 55-65%. 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 Perez Patient was seen and evaluated with Anny, examination performed, management plan was discussed, agree with the current scribed note, I made few changes to t he note using Italic font I discussed the management plan with Dr. Smith, patient will go for possible redo colonoscopy He was started back on Coumadin, INR 1.9. Continue on current medication monitor Clinical Quality Measures DVT/VTE Risk/Contraindication: Risk Factor Score Per Nursin RFS Level Per Nursing on Admit: 4+=Very High Contraindications-Pharm: Other *list below* Other: ANNY ANDERSON Oct 04, 2020 08:16 ANIKA SHEPHERD MD Oct 04, 2020 11:53
[2020-10-04] MEDS: MULTIVIT W/MINERALS TAB (THERAGRAN M) PO SCH (08:44)
[2020-10-04] MEDS: SENNA W/DOCUSATE (SENOKOT S) TABLET PO SCH ×2 (08:45→21:08)
[2020-10-04] MEDS: polyethylene glycoL POWDER 17 GM (MIRALAX) PACK PO SCH ×2 (08:45→21:11)
[2020-10-04] MEDS: DOCUSATE SODIUM 100 MG (COLACE) CAP PO SCH ×2 (08:45→21:09)
[2020-10-04] MEDS: PANTOPRAZOLE 40 MG (PROTONIX) TAB PO SCH ×2 (08:45→21:08)
[2020-10-04] MEDS: NYSTATIN ORAL SUSP 5 ML UDC PO SCH ×4 (08:45→21:08)
[2020-10-04] MEDS: FOLIC ACID 1 MG TAB PO SCH (08:45)
[2020-10-04] MEDS: aCETylcysteine 20% (MUCOMYST) 30ML SOLN VIAL PO SCH ×2 (08:46→21:10)
[2020-10-04] MEDS: SILDENAFIL 20 MG (REVATIO) TAB NON-FORMULARY PO SCH ×3 (08:46→21:09)
--- NOTE | 2020-10-04 08:59 | Physical Therapy Daily Note ---
PT Daily Note-Current Subjective Patient in bed pre tx, agrees to PT, has no complaints of pain at rest. Will be co-treating with OT due to poor patient mobility, strength, endurance, the need to coordinate UE and LE during activity, safety and decrease risk of falls. Appearance Patient in bed post tx with nurse call, phone, tray, all needs met. Mental Status Patient Orientation: Normal For Age Attachments: Oxygen, IV Transfers SCALE: Activities may be completed with or without assistive devices. 6-Ltwnmjfagy-tmprrsv completes the activity by him/herself with no assistance from a helper. 5-Set-up or Clean-up Assistance-helper sets up or cleans up; patient completes activity. [place] assists only prior to or following the activity. 4-Supervision or Touching Assistance-helper provides verbal cues and/or touching/steadying and/or contact guard assistance as patient completes activity. Assistance may be provided throughout the activity or intermittently. 3-Partial/Moderate Assistance-helper does LESS THAN HALF the effort. [place] lifts, holds or supports trunk or limbs, but provides less than half the effort. 2-Substantial/Maximal Assistance-helper does MORE THAN HALF the effort. [place] lifts or holds trunk or limbs and provides more than half the effort. 1-Omsiriipo-xgcail does ALL the effort. Patient does none of the effort to complete the activity. Or, the assistance of 2 or more helpers is required for the patient to complete the activity. If activity was not attempted, code reason: 7-Patient Refused. 9-Not Applicable-not attempted and the patient did not perform the activity before the current illness, exacerbation or injury. 10-Not Attempted due to Environmental Limitations-(lack of equipment, weather restraints, etc.). 88-Not Attempted due to Medical Conditions or Safety Concerns. Roll Left & Right (QC): 2 Sit to Lying (QC): 2 Lying to Sitting/Side of Bed(Q: 2 Sit to Stand (QC): 2 Chair/Yeg-yy-Jywzn Xfer(QC): 2 Wheelchair Training Does the Pt Use a Wheelchair?: Yes Wheel 50 ft with 2 turns (QC): 3 Type of Wheelchair: Manual 120'x2 Exercises In parallel bars patient performed 3 sets of 5 of beginning positioning of standing using arms and legs, patient is not able to stand even in the parallel bars with max assist from therapist. Patient also performed 5 WC pushups. Treatments PT performed bed mobility and transfers, WC mobility, functional strengthening, OT worked on UE positioning and safety during activity. Assessment Current Status: Poor Progress Patient had poorer activity tolerance, more SOB, needed increased rest breaks. Patient BP was 131/57, O2 was 91%, and glucose was over 100. PT Short Term Goals Short Term Goals Time Frame: Oct 05, 2020 Roll Left & Right: 4 Sit to lyin Lying to sitting on side of be: 3 Sit to stand: 2 Chair/lam-xh-kcgjt transfer: 2 PT Retirement Goals Retirement Goals PT Ends Breakage Clerk Goals Time Frame: Oct 19, 2020 Roll Left & Right (QC): 6 Sit to Lying (QC): 6 Lying-Sitting on Side/Bed(QC): 6 Sit to Stand (QC): 3 Chair/Ghq-bp-Hlubg Xfer(QC): 3 Toilet Transfer (QC): 3 Car Transfer (QC): 1 Does the Patient Walk: Yes Walk 10 feet (QC): 3 Walk 50ft with 2 Turns (QC): 88 Walk 150 ft (QC): 88 Walking 10ft on Uneven Surface: 88 1 Step (curb) (QC): 88 4 Steps (QC): 88 12 Steps (QC): 88 Picking up an Object (QC): 88 Wheel 50 feet with 2 turns (QC: 4 Wheel 150 feet: 4 PT Plan Problem List Problem List: Activity Tolerance, Functional Strength, Safety, Balance, Gait, Transfer, Bed Mobility, ROM Treatment/Plan Treatment Plan: Continue Plan of Care Treatment Plan: Bed Mobility, Education, Functional Activity [place], Functional Strength, Group Therapy, Gait, Safety, Therapeutic Exercise, Transfers Treatment Duration: Oct 19, 2020 Frequency: At least 5 of 7 days/Wk (IRF) Estimated Hrs Per Day: 1.5 hours per day Patient and/or Family Agrees t: Yes Safety Risks/Education Patient Education: Transfer Techniques, Correct Positioning, W/C Management, Safety Issues Teaching Recipient: Patient Teaching Methods: Demonstration, Discussion Response to Teaching: Reinforcement Needed Time/GCodes Time In: 0800 Time Out: 0900 Total Billed Treatment Time: 60 Total Billed Treatment 1 visit EX 15' FA 45' co-treated for 60' CLAYTON GARCIA PT Oct 04, 2020 08:59
[2020-10-04] MEDS: methylPREDNISolone 40 MG/ML (Solu-MEDROL) VIAL IV SCH (09:00)
[2020-10-04] MEDS: fluCOnazole (DIFLUCAN) 100 MG TAB PO SCH (09:00)
[2020-10-04] MEDS: AMIODARONE 200 MG (CORDARONE) TAB PO SCH ×2 (09:00→21:09)
[2020-10-04] MEDS: MICONAZOLE 2% POWDER (DESENEX AF) 90 GM TOP SCH ×3 (09:02→20:59)
[2020-10-04] MEDS: NYSTATIN CREAM (MYCOSTATIN) 30 GM TUBE TP SCH ×3 (09:02→20:59)
[2020-10-04] MEDS: FLUTICASONE NASAL SPRAY (FLONASE) 16 GM BTL NS SCH ×2 (09:08→21:14)
[2020-10-04] MEDS: SALIVA STIMULANT MOUTH SPRAY (BIOTENE) 1.5 OZ MM SCH ×3 (09:09→21:13)
--- NOTE | 2020-10-04 09:38 | Occupational Ther Daily Note ---
OT Current Status-Daily Note Subjective Pt laying in bed, agreeable to OT tx. Pt indicates he is hungry, but unable to eat due to colonoscopy scheduled for later today. Mental Status/Objective Patient Orientation: Person, Place, Time, Situation Attachments: IV, Oxygen ADL-Treatment Therapy Code Descriptions/Definitions Functional [place] Measure: 0=Not Assessed/NA 4=Minimal Assistance 1=Total Assistance 5=Supervision or Setup 2=Maximal Assistance 6=Modified [place] 3=Moderate Assistance 7=Complete IndependenceSCALE: Activities may be completed with or without assistive devices. 2-Bajmjfiapg-ofbxbge completes the activity by him/herself with no assistance from a helper. 5-Set-up or Clean-up Assistance-helper sets up or cleans up; patient completes activity. [place] assists only prior to or following the activity. 4-Supervision or Touching Assistance-helper provides verbal cues and/or touching/steadying and/or contact guard assistance as patient completes activity. Assistance may be provided throughout the activity or intermittently. 3-Partial/Moderate Assistance-helper does LESS THAN HALF the effort. [place] lifts, holds or supports trunk or limbs, but provides less than half the effort. 2-Substantial/Maximal Assistance-helper does MORE THAN HALF the effort. [place] lifts or holds trunk or limbs and provides more than half the effort. 8-Uiuogtwsz-ddkfqx does ALL the effort. Patient does none of the effort to complete the activity. Or, the assistance of 2 or more helpers is required for the patient to complete the activity. If activity was not attempted, code reason: 7-Patient Refused. 9-Not Applicable-not attempted and the patient did not perform the activity before the current illness, exacerbation or injury. 10-Not Attempted due to Environmental Limitations-(lack of equipment, weather restraints, etc.). 88-Not Attempted due to Medical Conditions or Safety Concerns. Other Treatment [id number] OT/PT cotreat due to skill of 2 clinicians required which a rehabilitation worker could not perform in order to coordinate UE/LEs with tasks, and due to pt's limitations in functional mobility, endurance, and strength. OT focused on UE placement, cues for sequencing and safety and assist with transfers, while PT focused on LE placement gross overall movements, and transfers. Pt transferred supine to sit EOB, assist with trunk and LEs, then SPT from bed to w/c, max A. Pt self-propelled w/c to therapy gym and to parallel bars. Pt attempted to stand at bars, able to clear bottom from chair but unable to get into full stand. Pt then completed 3x5 preparatory exercises for stand, including pulling through arms and pushing through legs, without lifting buttocks from chair. Pt then completed x5 w/c push ups. Pt required extensive rest breaks between each exercise. Pt self-propelled w/c back to room, max A SPT from w/c to bed. [id number] OT tx. In order to increase BUE strength and functional endurance, pt completed fine motor task of placing 1" pegs into foam pegboard. Pt took frequent rest breaks during task, and had to lower HOB throughout tx to get pre ssure off of his buttocks/wound. Pt able to place ~30 pegs, alternating hands. Nurse present, O2 saturation in mid 80%'s, Pt instructed to take deep breaths and O2 increased to low 90%'s. OT assisted pt with positioning with pillow, laying towards L side. Post OT tx, pt laying in bed, call light in reach and all needs met. Education OT Patient Education: Correct positioning, Energy conservation, Exercise program, Modified ADL techniques, Progress toward Goal/Update tx plan, Purpose of tx/functional activities, Transfer techniques, W/C management Teaching Recipient: Patient Teaching Methods: Discussion Response to Teaching: Verbalize Understanding OT Short Term Goals Short Term Goals Time Frame: Oct 10, 2020 Toileting hygiene: 2 Shower/bathe self: 2 Lower body dressin Putting on/taking off footwear: 2 OT Technical Sourcing Recruiter Goals Mcc Goals Time Frame: Oct 21, 2020 Eating (QC): 6 Oral Hygiene (QC): 6 Toileting Hygiene (QC): 4 Shower/Bathe Self (QC): 4 Upper Body Dressing (QC): 5 Lower Body Dressing (QC): 4 On/Off Footwear (QC): 4 1=Demonstrate adherence to instructed precautions during ADL tasks. 2=Patient will verbalize/demonstrate understanding of assistive devices/modifications for ADL. 3=Patient will improve strength/tolerance for activity to enable patient to perform ADL's. OT Education/Plan Problem List/Assessment Assessment: Decreased Activ Tolerance, Decreased UE Strength, Impaired Funct Balance, Impaired I ADL's, Impaired Self-Care Skills Discharge Recommendations Plan/Recommendations: Continue POC Treatment Plan/Plan of Care Patient would benefit from OT for education, treatment and training to promote independence in ADL's, mobility, safety and/or upper extremity function for ADL's. Plan of Care: ADL Retraining, Functional Mobility, Group Exercise/Act as Ind, UE Funct Exercise/Act Treatment Duration: Oct 21, 2020 Frequency: At least 5 of 7 days/Wk (IRF) Estimated Hrs Per Day: 1.5 hours per day Agreement: Yes Rehab Potential: Fair Time/GCodes Start Time: 08:00 Stop Time: 09:30 Total Time Billed (hr/min): 90 Billed Treatment Time 1, FA 6 (90') ALEXUS PACHECO OT Oct 04, 2020 09:38
--- NOTE | 2020-10-04 10:13 | PM&R Progress Note ---
Subjective HPI/CC On Admission Date Seen by Provider: Oct 04, 2020 Time Seen by Provider: 10:30 Subjective/Events-last exam 10/04/20: EGD was done but the colon prep was insufficient so will have that done today INR 1.9 Potassium 3.2 will give 40 mEq through his IV Pt with severe lung dysfunction maintained on 6-7 liters 10/03/20: Labs remain stable EGD/Colonoscopy will be performed by Dr Smith O2 maintained at current level Leg weakness is profound 10/02/20: Patient appears much better EGD/Colonoscopy tomorrow Patient reports scopes many years ago Hgb 9.3 stable Iron 46 so will give 1 dose of IV iron Really needs OAC but need scopes first then will start 10/01/2020: Patient much improved Meropenem and vancomycin maintained and tolerated well Status post 2 units of blood transfusion yesterday and now much improved hemoglobin of 9.1 Hemoccult stools are positive so contacted Dr. Smith and increase Protonix to 40 mg twice daily instead of just daily and listed pharmacological DVT prophylaxis is contraindicated due to active GI bleeding due suspicion from elevated BUN that bleeding is active Very complex issues Lungs sound much better Maintain on oxygen 6 L Slow recovery Legs are very weak severe myopathy noted 09/30/2020: Hemoglobin 6.8 and patient very symptomatic so we will transfuse 2 units with Lasix in between the units to prevent overload Still requiring [address] scan reviewed Patient had a better night sleep Denies any significant new issues Antibiotics maintain We will stop IV fluids Check meds and labs 09/29/20: Very complex issues overnight Reviewed chest x-ray done earlier in the day and it showed bilateral infiltrates and considering he had a Covid-like illness that prompted the hospital stay 1 month ago and considering his continued hypoxia managed with Lasix and steroids at [facility] I went ahead and did the sepsis work-up which revealed elevated lactic acid but not likely due to pneumonia but likely dehydration and volume depletion since he had thrush and was not eating or drinking well Covered him with broad-spectrum antibiotics Consulted Dr. Gamble Consulted Dr. Alanis IV fluids initiated Check echocardiogram Conferred with RN Reviewed therapy notes Check meds and labs Review of Systems General: Fatigue Pulmonary: Dyspnea Objective Exam Vital Signs Vital Signs Date Time Temp Pulse Resp B/P (MAP) Pulse Ox O2 Delivery O2 Flow Rate FiO2 10/05/20 06:10 36.4 73 20 115/56 (75) 92 High Flow N/C 8.00 Capillary Refill : Less Than 3 Seconds General Appearance: No Apparent Distress, WD/WN, Chronically ill HEENT: PERRL/EOMI, Normal ENT Inspection, Pharynx Normal Neck: Full Range of Motion, Normal Inspection, Non Tender, Supple, Carotid Bruit Respiratory: Chest Non Tender, No Accessory Muscle Use, No Respiratory Distress, Decreased Breath Sounds Cardiovascular: Regular Rate, Rhythm, No Edema, No Gallop, No JVD, No Murmur, Normal Peripheral Pulses Gastrointestinal: Normal Bowel Sounds, No Organomegaly, No Pulsatile Mass, Non Tender, Soft Back: Normal Inspection, No CVA Tenderness, No Vertebral Tenderness Extremity: Normal Capillary Refill, Normal Inspection, Normal Range of Motion, Non Tender, No Calf Tenderness, No Pedal Edema Neurologic/Psychiatric: Alert, Oriented x3, Normal Mood/Affect, 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 FIM Transfers Therapy Code Descriptions/Definitions Functional [place] Measure: 0=Not Assessed/NA 4=Minimal Assistance 1=Total Assistance 5=Supervision or Setup 2=Maximal Assistance 6=Modified [place] 3=Moderate Assistance 7=Complete IndependenceSCALE: Activities may be completed with or without assistive devices. 8-Piddouewss-qdczpth completes the activity by him/herself with no assistance from a helper. 5-Set-up or Clean-up Assistance-helper sets up or cleans up; patient completes activity. [place] assists only prior to or following the activity. 4-Supervision or Touching Assistance-helper provides verbal cues and/or touching/steadying and/or contact guard assistance as patient completes activity. Assistance may be provided throughout the activity or intermittently. 3-Partial/Moderate Assistance-helper does LESS THAN HALF the effort. [place] lifts, holds or supports trunk or limbs, but provides less than half the effort. 2-Substantial/Maximal Assistance-helper does MORE THAN HALF the effort. [place] lifts or holds trunk or limbs and provides more than half the effort. 2-Xlnoekfgh-ukxkvn does ALL the effort. Patient does none of the effort to complete the activity. Or, the assistance of 2 or more helpers is required for the patient to complete the activity. If activity was not attempted, code reason: 7-Patient Refused. 9-Not Applicable-not attempted and the patient did not perform the activity before the current illness, exacerbation or injury. 10-Not Attempted due to Environmental Limitations-(lack of equipment, weather restraints, etc.). 88-Not Attempted due to Medical Conditions or Safety Concerns. Roll Left to Right (QC): 2 Sit to Lying (QC): 2 Sit to Stand (QC): 2 Chair/Btx-wr-[place] Xfer(QC): 2 Car Transfer (QC): 1 Gait Training Does the Patient Walk?: No and Walking Goal IS indicated Walk 10 feet (QC): 3 Walk 50 ft with 2 Turns(QC): 88 Walk 150 ft (QC): 88 Walking 10ft/uneven surface-QC: 88 Wheelchair Training Does the Pt Use a Wheelchair?: Yes Wheel 50 ft with 2 turns (QC): 3 Wheel 150 ft (QC): 1 Type of Wheelchair: Manual Stair Training 1 Step (curb) (QC): 88 4 Steps (QC): 88 12 Steps (QC): 88 Balance Picking up an Object (QC): 88 ADL-Treatment Eating (QC): 6 (Pt indicates independent with feeding. No difficulty with lunch, able to cut his food, use utensils, and bring food/drink to mouth.) Oral Hygiene (QC): 5 (set up at bed level) Shower/Bathe Self (QC): 2 (Sponge bath, pt washed BUEs, chest and abdomen. OT washed all other parts.) Upper Body Dressing (QC): 3 ([place]) Lower Body Dressing (QC): 1 (total assist with donning socks.) On/Off Footwear (QC): 1 (total assist donning TEDhose and gripper socks.) Toileting Hygiene (QC): 1 (Total assist changing brief and performing hyiene after BM) Assessment/Plan Assessment and Plan Assess & Plan/Chief Complaint Assessment: COPD myopathy Hypoxia Abnormal CXR Thrush Coumadin treatment Respiratory failure DM GERD PHTN Plan: Check INR IRF protocol Dr Alanis and Dr Gamble consulted 09/29/20: Broad-spectrum antibiotics Pulmonology consultation Check labs Monitor oxygen level Monitor closely 09/30/20: Transfused 2 units of blood Hep-Lock IV fluid to prevent overload Lasix in between the blood Monitor oxygen level Maintain antibiotics Very complex issues 10/01/2020: Increase proton pump inhibitor to twice a day Consult Dr. Smith Noted elevated BUN with severe anemia status post 2 units of blood transfusion yesterday high suspicion for GI bleed likely upper from stress gastritis or ulcer Maintain antibiotics Monitor closely due to high risk for decompensation 10/02/20: Scopes tomorrow Monitor hgb closely Iron infusion x 1 Check labs in am Abx to be maintained 10/03/20: Scopes Monitor closely Monitor hgb O2 wean 10/04/20: Colonoscopy today Monitor closely Check labs tomorrow (1) Myopathy (2) Atrial fibrillation (3) Warfarin anticoagulation (4) Diabetes mellitus (5) COPD (chronic obstructive pulmonary disease) (6) Hypoxemia (7) Volume overload (8) SAEID Melchor DO Oct 04, 2020 10:13
[2020-10-04] MEDS: POTASSIUM CL 10MEQ/50ML IVPB 50 ML IV SCH ×4 (10:48→13:50)
--- NOTE | 2020-10-04 11:21 | NUR ---
DR. JONES HERE. INFORMED OF INCREASED 02 NEEDS.
--- NOTE | 2020-10-04 12:00 | NUR ---
DR. DUNCAN HERE. WILL DO COLONOSCOPY TOMORROW, NOT TODAY. OK FOR CLEAR LIQUIDS TODAY AND FOR BREAKFAST TOMORROW AM. NPO AFTER BREAKFAST ON 10/05/20. DR. DUNCAN SAYS THAT COLONOSCOPY WILL FOLLOW OTHER CASES... SO THINKING AROUND NOON. Addendum: 10/04/20 at 1209 by SARA RICE RN ADDITION TO SURGERY FAXED AND ORIGINAL GIVEN TO HEAD TEACHER.
--- NOTE | 2020-10-04 13:11 | Progress Note - Surgery ---
Subjective Time Seen by a Provider: 11:27 Subjective/Events-last exam Pt seen and examined, states he is still having some brown BM's; but did have 3 large BM's last night. No significant changes, still main complaint of weakness and SOB. Review of Systems General: Fatigue Pulmonary: Dyspnea, Cough Cardiovascular: No: Chest Pain, Palpitations Gastrointestinal: No: Nausea, Vomiting, Abdominal Pain Neurological: Weakness Objective Exam Vital Signs Date Time Temp Pulse Resp B/P (MAP) Pulse Ox O2 Delivery O2 Flow Rate FiO2 10/04/20 12:24 69 10/04/20 11:48 91 High Flow N/C 8.00 10/04/20 09:59 Nasal Cannula 8.00 10/04/20 06:56 90 High Flow N/C 7.00 10/04/20 06:38 69 10/04/20 06:20 36.3 72 18 127/60 (82) 95 Nasal Cannula 5.00 10/04/20 01:00 67 10/03/20 20:30 Nasal Cannula 5.00 10/03/20 19:00 91 10/03/20 18:52 88 High Flow N/C 5.00 10/03/20 16:00 36.1 80 16 146/67 (93) 100 Nasal Cannula 5.00 10/03/20 15:42 100 Nasal Cannula 10.00 I & O 10/04/20 07:00 Intake Total 2060 ml Balance 2060 ml Capillary Refill : Less Than 3 Seconds General Appearance: No Apparent Distress, Chronically ill HEENT: PERRL/EOMI, Moist Mucous Membranes Respiratory: Chest Non Tender, No Accessory Muscle Use, No Respiratory Distress, Decreased Breath Sounds Cardiovascular: Regular Rate, Rhythm, No Murmur, Normal Peripheral Pulses Gastrointestinal: non tender, soft, no organomegaly Extremity: No Calf Tenderness, Pedal Edema Neurologic/Psychiatric: Alert, Oriented x3, Abnormal Gait, Depressed Affect, Motor Weakness (severe 3/5 all extremities) Skin: Warm/Dry, Pallor Results Lab Laboratory Tests 10/03/20 15:50: Glucometer 311H 10/03/20 20:29: Glucometer 296H 10/04/20 05:36: Glucometer 55*L 10/04/20 05:55: White Blood Count 14.7H, Red Blood Count 3.15L, Hemoglobin 9.3L, Hematocrit 30L, Mean Corpuscular Volume 95, Mean Corpuscular Hemoglobin 30, Mean Corpuscular Hemoglobin Concent 31L, Red Cell Distribution Width 17.9H, Platelet Count 148, Mean Platelet Volume 10.9, Immature Granulocyte % (Auto) 1, Neutrophils (%) (Auto) 88H, Lymphocytes (%) (Auto) 5L, Monocytes (%) (Auto) 6, Eosinophils (%) (Auto) 1, Basophils (%) (Auto) 0, Neutrophils # (Auto) 12.9H, Lymphocytes # (Auto) 0.7L, Monocytes # (Auto) 0.9, Eosinophils # (Auto) 0.1, Basophils # (Auto) 0.0, Immature Granulocyte # (Auto) 0.1, Prothrombin Time 21.9H, INR Comment 1.9H, Sodium Level 144, Potassium Level 3.2L, Chloride Level 109H, Carbon Dioxide Level 27, Anion Gap 8, Blood Urea Nitrogen 35H, Creatinine 0.79, Estimat Glomerular Filtration Rate > 60, BUN/Creatinine Ratio 44, Glucose Level 55*L, Calcium Level 7.0L, Corrected Calcium 8.4L, Total Bilirubin 0.6, Aspartate Amino Transf (AST/SGOT) 30, Alanine Aminotransferase (ALT/SGPT) 64H, Alkaline Phosphatase 82, Total Protein 4.0L, Albumin 2.2L 10/04/20 06:26: Glucometer 99 10/04/20 08:27: Glucometer 104 10/04/20 10:52: Glucometer 131H Microbiology 10/02/20 MRSA Screen - Final, Complete MRSA not isolated 09/28/20 Blood Culture - Preliminary, Resulted No growth Assessment/Plan Assessment/Plan Assessment/Plan Anemia - unknown etiology; stable after transfusion Hemoccult+ Pneumonia LE weakness Hypoxia EGD done showed mild Gastritis; unfortunately colonoscopy not completed because of retained fecal material. Pt was on clears yesterday and got dulcolax and Mg citrate; still not clean. Will try another round of dulcolax and clears today. Hopefully can do colonoscopy tomorrow; pt is ok with this. I told him I think this is important because we did find one polyp; therefore, there may be more. Clinical Quality Measures DVT/VTE Risk/Contraindication: Risk Factor Score Per Nursin RFS Level Per Nursing on Admit: 4+=Very High Contraindications-Pharm: Other *list below* Other: YANN ERICKSON DO Oct 04, 2020 13:11
--- NOTE | 2020-10-04 14:00 | NUR ---
BRUISED AREA TO INNER LEFT ARM NEAR ELBOW. PICC LINE FLUSHES WITHOUT DIFFICULTY AND DRAWS BLOOD. MID UPPER ARM CIRCUMFERENCE 30... 29 PREVIOUSLY. PATIENT DENIES PAIN. WILL HAVE DR. JONES ASSESS IN THE AM.
[2020-10-04] MEDS: ADVAIR HFA 115/21 MCG INHALER 8 GM IH SCH (14:19)
--- NOTE | 2020-10-04 14:23 | Physical Therapy Daily Note ---
PT Daily Note-Current Subjective Patient in bed pre tx, agrees to PT, has no complaints of pain but states he is wet and needs brief changed. Appearance Patient in bed post tx with nurse call, phone, tray, all needs met. Mental Status Patient Orientation: Person, Place, Situation Attachments: Oxygen, IV Transfers SCALE: Activities may be completed with or without assistive devices. 1-Ajektvmoqn-ftthamx completes the activity by him/herself with no assistance from a helper. 5-Set-up or Clean-up Assistance-helper sets up or cleans up; patient completes activity. [place] assists only prior to or following the activity. 4-Supervision or Touching Assistance-helper provides verbal cues and/or touching/steadying and/or contact guard assistance as patient completes activity. Assistance may be provided throughout the activity or intermittently. 3-Partial/Moderate Assistance-helper does LESS THAN HALF the effort. [place] lifts, holds or supports trunk or limbs, but provides less than half the effort. 2-Substantial/Maximal Assistance-helper does MORE THAN HALF the effort. [place] lifts or holds trunk or limbs and provides more than half the effort. 1-Kaxpnnkgj-yjgebl does ALL the effort. Patient does none of the effort to complete the activity. Or, the assistance of 2 or more helpers is required for the patient to complete the activity. If activity was not attempted, code reason: 7-Patient Refused. 9-Not Applicable-not attempted and the patient did not perform the activity before the current illness, exacerbation or injury. 10-Not Attempted due to Environmental Limitations-(lack of equipment, weather restraints, etc.). 88-Not Attempted due to Medical Conditions or Safety Concerns. Roll Left & Right (QC): 3 Patient has to roll from side to side to clean and then change brief, patient has also had a small BM, pad under patient also has to be changed. Exercises Supine Ex: Ankle pumps, Quad Set, Glut sets, Heel Slides, Short Arc Quads (AARO M), Straight leg raise (AAROM), Hip abd/add (AAROM) Supine Reps: 20 Treatments LE exercise, rolling Assessment Current Status: Poor Progress no change in mobility PT Short Term Goals Short Term Goals Time Frame: Oct 05, 2020 Roll Left & Right: 4 Sit to lyin Lying to sitting on side of be: 3 Sit to stand: 2 Chair/qjy-qd-vumgz transfer: 2 PT Intermediate Goals [place] Observer Goals PT Intermediate Goals Time Frame: Oct 19, 2020 Roll Left & Right (QC): 6 Sit to Lying (QC): 6 Lying-Sitting on Side/Bed(QC): 6 Sit to Stand (QC): 3 Chair/Ocn-sl-Cznnk Xfer(QC): 3 Toilet Transfer (QC): 3 Car Transfer (QC): 1 Does the Patient Walk: Yes Walk 10 feet (QC): 3 Walk 50ft with 2 Turns (QC): 88 Walk 150 ft (QC): 88 Walking 10ft on Uneven Surface: 88 1 Step (curb) (QC): 88 4 Steps (QC): 88 12 Steps (QC): 88 Picking up an Object (QC): 88 Wheel 50 feet with 2 turns (QC: 4 Wheel 150 feet: 4 PT Plan Problem List Problem List: Activity Tolerance, Functional Strength, Safety, Balance, Gait, Transfer, Bed Mobility, ROM Treatment/Plan Treatment Plan: Continue Plan of Care Treatment Plan: Bed Mobility, Education, Functional Activity [place], Functional Strength, Group Therapy, Gait, Safety, Therapeutic Exercise, Transfers Treatment Duration: Oct 19, 2020 Frequency: At least 5 of 7 days/Wk (IRF) Estimated Hrs Per Day: 1.5 hours per day Patient and/or Family Agrees t: Yes Safety Risks/Education Patient Education: Correct Positioning, Safety Issues Teaching Recipient: Patient Teaching Methods: Demonstration, Discussion Response to Teaching: Reinforcement Needed Time/GCodes Time In: 1400 Time Out: 1430 Total Billed Treatment Time: 30 Total Billed Treatment 1 visit EX 20' FA 10' CLAYTON GARCIA PT Oct 04, 2020 14:22
--- NOTE | 2020-10-04 15:56 | NUR ---
PER DR. DUNCAN, GIVE DULCOLAX- 10 MG PO X1 NOW.
[2020-10-04 16:00] VITALS: BP 133/60
[2020-10-04] MEDS ORDERED: BISACODYL 5 MG (DULCOLAX) TABLET PO ONE ×2 (16:00→16:36)
--- NOTE | 2020-10-04 16:40 | NUR ---
PATIENT SWITCHED TO OXYMASK (8L) D/T MOUTH BREATHING. SATS MID 80'S UNLESS CONSCIOUSLY TAKING DEEP BREATHS THROUGH NOSE. 02 SAT 95% ON OXYMASK.
[2020-10-04] MEDS: warFARin 1 MG (COUMADIN) TAB PO SCH (17:00)
[2020-10-04] MEDS: ALPRAZolam 0.25 MG (XANAX) TAB PO SCH (21:08)
[2020-10-05] MEDS: D5 NS 1000 ML IV SOLUTION 1,000 ML IV SCH (05:42)
--- NOTE | 2020-10-05 05:43 | NUR ---
O2 sats checked freq throughout noc with pt on 8L/NC. Pt sats have been 91-92%. Cont to monitor.
[2020-10-05] MEDS: inSUlin ASPART (NovoLOG) 1 UNIT/0.01 ML (CHARGE PER UNIT) SC SCH ×2 (06:09→11:30)
[2020-10-05 06:10] VITALS: BP 115/56
[2020-10-05 06:41] LABS: BASOPHILS % (AUTO) 0 % (0-10); EOSINOPHILS # (AUTO) 0.1 10^3/uL (0.0-0.3); EOSINOPHILS % (AUTO) 0 % (0-10); HEMATOCRIT 30 % (40-54); HEMOGLOBIN 9.2 g/dL (13.3-17.7); LYMPHOCYTES # (AUTO) 0.8 10^3/uL (1.0-4.0); LYMPHOCYTES % (AUTO) 6 % (12-44); MEAN CORPUSCULAR HEMOGLOBIN 30 pg (25-34); MEAN CORPUSCULAR HGB CONC 31 g/dL (32-36); MEAN CORPUSCULAR VOLUME 96 fL (80-99); MEAN PLATELET VOLUME 10.3 fL (9.0-12.2); MONOCYTES # (AUTO) 0.9 10^3/uL (0.0-1.0); MONOCYTES % (AUTO) 6 % (0-12); NEUTROPHILS # (AUTO) 12.4 10^3/uL (1.8-7.8); NEUTROPHILS % (AUTO) 87 % (42-75); PLATELET COUNT 141 10^3/uL (130-400); WHITE BLOOD COUNT 14.3 10^3/uL (4.3-11.0)
[2020-10-05 06:52] LABS: INR 2.4 (0.8-1.4); PROTHROMBIN TIME PATIENT 26.7 SEC (12.2-14.7)
[2020-10-05] MEDS: RT-ALBUTEROL/IPRATROPIUM 3 ML (DUONEB) VIAL IH SCH ×2 (06:54→13:38)
[2020-10-05] MEDS: ADVAIR HFA 115/21 MCG INHALER 8 GM IH SCH (06:55)
[2020-10-05 06:57] LABS: ALBUMIN 2.2 GM/DL (3.2-4.5); CHLORIDE 109 MMOL/L (98-107); POTASSIUM 3.6 MMOL/L (3.6-5.0); SODIUM 142 MMOL/L (135-145)
[2020-10-05 06:58] LABS: CALCIUM 7.3 MG/DL (8.5-10.1)
[2020-10-05 06:59] LABS: GLUCOSE 100 MG/DL (70-105)
[2020-10-05 07:00] LABS: TOTAL PROTEIN 4.3 GM/DL (6.4-8.2)
[2020-10-05 07:01] LABS: BILIRUBIN,TOTAL 0.5 MG/DL (0.1-1.0); CARBON DIOXIDE 26 MMOL/L (21-32)
[2020-10-05 07:03] LABS: ALKALINE PHOSPHATASE 84 U/L (40-136); CREATININE SERUM 0.78 MG/DL (0.60-1.30); GFR ESTIMATED > 60
[2020-10-05 07:04] LABS: BUN/CREATININE RATIO 37
[2020-10-05 07:06] LABS: ALANINE AMINOTRANSFERASE 65 U/L (0-55)
--- NOTE | 2020-10-05 08:51 | Cardiology Progress Note ---
Subjective Date Seen by Provider: Oct 05, 2020 Time Seen by Provider: 08:30 Subjective/Events-last exam Patient is in bed, no new complaints. Denies any chest pain or dyspnea. Review of Systems General: No Chills, No Night Sweats, No Fatigue, No Malaise, No Appetite, No Other HEENT: No Head Aches, No Visual Changes, No Eye Pain, No Ear Pain, No Dysphasia, No Sinus Congestion, No Post Nasal Drip, No Sore Throat, No Other Pulmonary: No Dyspnea, No Cough, No Pleuritic Chest Pain, No Other Cardiovascular: No: Chest Pain, Palpitations, Orthopnea, Paroxysmal Noc. Dyspnea, Edema, Lt Headedness, Other Objective-Cardiology Exam Last Set of Vital Signs Vital Signs 10/05/20 10/05/20 10/05/20 10/05/20 06:10 06:35 06:55 07:00 Temp 36.4 Pulse 76 Resp 20 B/P (MAP) 115/56 (75) Pulse Ox 92 O2 Delivery High Flow N/C O2 Flow Rate 8.00 Capillary Refill : Less Than 3 Seconds I&O Intake and Output 10/05/20 00:00 Intake Total 1860 ml Balance 1860 ml Intake Oral 1660 ml IV Total 200 ml # Voids 5 # Bowel Movements 9 General: Alert, Oriented X3, Cooperative HEENT: Atraumatic, PERRLA Neck: Supple, No JVD, No Thyromegaly Lungs: Clear to Auscultation, Normal Air Movement Heart: Regular Rate, Normal S1, Normal S2, No Murmurs Abdomen: Normal Bowel Sounds, Soft, No Tenderness, No Hepatosplenomegaly, No Masses Extremities: No Clubbing, No Cyanosis, No Edema, Normal Pulses, No Tenderness/Swelling Skin: No Rashes, No Breakdown, No Significant Lesion Neuro: Normal Gait, Normal Speech, Strength at 5/5 X4 Ext, Normal Tone, Sensation Intact Psych/Mental Status: Mental Status NL, Mood NL Results Lab Laboratory Tests 10/05/20 06:20 A/P-Cardiology Admission Diagnosis Pneumonia Anemia PAF DM Assessment/Plan Pneumonia with sepsis - management per Dr Perez and Pulrosemarie kerr Anemia of undetermined etiology - underwent EGD showing mild gastritis. Planning for colonoscopy PAF, currently sinus rhythm, OAC with warfarin, INR 2.4, continue to monitor. Hypokalemia, replaced and improved, continue to monitor. EKG of 09-29-2020 showed RBBB of unknown length of time Echocardiogram of Sep 28, 2020 showed LVEF 55-65%. 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 Perez Patient was seen and evaluated with Anny, examination performed, management plan was discussed, agree with the current scribed note, I made few changes to the note using Italic font Patient was seen at bedside, laying down comfortably, no chest pain. No shortness of breath Continue on current medication continue to monitor. No changes are recommended Clinical Quality Measures DVT/VTE Risk/Contraindication: Risk Factor Score Per Nursin RFS Level Per Nursing on Admit: 4+=Very High Contraindications-Pharm: Other *list below* Other: ANNY ANDERSON Oct 05, 2020 08:51 ANIKA SHEPHERD MD Oct 05, 2020 11:33
--- NOTE | 2020-10-05 08:58 | Physical Therapy Daily Note ---
PT Daily Note-Current Subjective Pt. in bed c/o he does not feel he can tolerate up right position much less in w/c to gym, Pt. did agree to PT OT co Rx for bed exercises and sitting EOB as well as trial of perching if tolerated. Pt. also c/o very hungry and wants hot chocolate and a czech when the colonoscopy is over, "if we get to have it". While is sitting at EOB pt. c/o increasing difficulty breathing as well as weakness and dizziness. Sitting EOB was discontinued, secondary to low BP and O2 sat readings see note below Pain Numeric Pain Scale: 0-No Pain Mental Status Patient Orientation: Person, Place, Situation Attachments: SCD's, Oxygen (8L), IV Transfers SCALE: Activities may be completed with or without assistive devices. 4-Ftpypczatd-jmnaqul completes the activity by him/herself with no assistance from a helper. 5-Set-up or Clean-up Assistance-helper sets up or cleans up; patient completes activity. [place] assists only prior to or following the activity. 4-Supervision or Touching Assistance-helper provides verbal cues and/or touching/steadying and/or contact guard assistance as patient completes activity. Assistance may be provided throughout the activity or intermittently. 3-Partial/Moderate Assistance-helper does LESS THAN HALF the effort. [place] lifts, holds or supports trunk or limbs, but provides less than half the effort. 2-Substantial/Maximal Assistance-helper does MORE THAN HALF the effort. [place] lifts or holds trunk or limbs and provides more than half the effort. 0-Lmohpyazj-ekonqk does ALL the effort. Patient does none of the effort to complete the activity. Or, the assistance of 2 or more helpers is required for the patient to complete the activity. If activity was not attempted, code reason: 7-Patient Refused. 9-Not Applicable-not attempted and the patient did not perform the activity before the current illness, exacerbation or injury. 10-Not Attempted due to Environmental Limitations-(lack of equipment, weather restraints, etc.). 88-Not Attempted due to Medical Conditions or Safety Concerns. Roll Left & Right (QC): 3 Sit to Lying (QC): 2 Lying to Sitting/Side of Bed(Q: 2 Exercises Supine Ex: Bridging, Ankle pumps, Quad Set, Rolling, Glut sets, Heel Slides, Scooting, Straight leg raise, Hip abd/add Supine Reps: 12 Seated Therapy Exercises: Ankle pumps, Long arc quads Seated Reps: 10 Treatments PT OT co Rx secondary to pts very debilitated state and dependence for all m obility, PT OT coordinating U&L extremity stability for functional tasks. Pt. in supine for LE exercises with assistance and requested frequent rest breaks, mod to max assist to roll then sit EOB with pt. needing min assist for sitting balance then increasing c/o SOB and dizziness, BP reading at111,58 HR 78 and O2 sats at 8 L O2 at 72 , pt. was then layed down and BP and O2 sats began to ascend with instruction to breathe in through nose out through mouth etc. PT OT coordinating for bed bath and rolling etc. Assessment Current Status: Poor Progress dependent for all mobility, BP and O2 plummeting with upright position PT Short Term Goals Short Term Goals Time Frame: Oct 05, 2020 Roll Left & Right: 4 Sit to lyin Lying to sitting on side of be: 3 Sit to stand: 2 Chair/plb-kk-xsonw transfer: 2 PT [facility] Goals [facility] Goals PT [employer] Goals Time Frame: Oct 19, 2020 Roll Left & Right (QC): 6 Sit to Lying (QC): 6 Lying-Sitting on Side/Bed(QC): 6 Sit to Stand (QC): 3 Chair/Zqc-kq-Etdro Xfer(QC): 3 Toilet Transfer (QC): 3 Car Transfer (QC): 1 Does the Patient Walk: Yes Walk 10 feet (QC): 3 Walk 50ft with 2 Turns (QC): 88 Walk 150 ft (QC): 88 Walking 10ft on Uneven Surface: 88 1 Step (curb) (QC): 88 4 Steps (QC): 88 12 Steps (QC): 88 Picking up an Object (QC): 88 Wheel 50 feet with 2 turns (QC: 4 Wheel 150 feet: 4 PT Plan Treatment/Plan Treatment Plan: Continue Plan of Care Treatment Plan: Bed Mobility, Education, Functional Activity [place], Functional Strength, Group Therapy, Gait, Safety, Therapeutic Exercise, Transfers Treatment Duration: Oct 19, 2020 Frequency: At least 5 of 7 days/Wk (IRF) Estimated Hrs Per Day: 1.5 hours per day Patient and/or Family Agrees t: Yes Safety Risks/Education Patient Education: Correct Positioning, Disease Process, Safety Issues Teaching Recipient: Patient Teaching Methods: Discussion Response to Teaching: Verbalize Understanding, Reinforcement Needed Time/GCodes Time In: 800 Time Out: 900 Total Billed Treatment Time: 60 Total Billed Treatment 1,EX20m,FA40m (60 m co Rx with OT) PARMINDER OBREGON [employer] CAPTAIN Oct 05, 2020 08:58
--- NOTE | 2020-10-05 09:00 | NUR ---
O2 SAT 60'S WHILE SITTING ON SIDE OF BED FOR THERAPY. AFTER LYING BACK DOWN, STAYING IN 80'S. O2 INCREASED TO 10 L WITH LITTLE IMPROVEMENT, THEN PUT ON MASK AT 10L. UNSURE IF PULSE OX PROBE READING CORRECTLY, SO AFTER USING DIFFERENT FINGERS, PROBE ON EAR, AND NOSE PROBE - DETERMINED OXIMETRY READING CORRECT. SATS STAYING AROUND 88% AND CONTINUOUS PULSE OX ON. INR 2.[address] DUNCAN NOTIFIED. COLONOSCOPY CANCELLED FOR TODAY.
[2020-10-05] MEDS: FOLIC ACID 1 MG TAB PO SCH (09:05)
[2020-10-05] MEDS: fluCOnazole (DIFLUCAN) 100 MG TAB PO SCH (09:06)
[2020-10-05] MEDS: NYSTATIN ORAL SUSP 5 ML UDC PO SCH (09:06)
[2020-10-05] MEDS: MULTIVIT W/MINERALS TAB (THERAGRAN M) PO SCH (09:06)
[2020-10-05] MEDS: SENNA W/DOCUSATE (SENOKOT S) TABLET PO SCH (09:06)
[2020-10-05] MEDS: PANTOPRAZOLE 40 MG (PROTONIX) TAB PO SCH (09:06)
[2020-10-05] MEDS: AMIODARONE 200 MG (CORDARONE) TAB PO SCH (09:06)
[2020-10-05] MEDS: DOCUSATE SODIUM 100 MG (COLACE) CAP PO SCH (09:06)
[2020-10-05] MEDS: SILDENAFIL 20 MG (REVATIO) TAB NON-FORMULARY PO SCH (09:07)
[2020-10-05] MEDS: methylPREDNISolone 40 MG/ML (Solu-MEDROL) VIAL IV SCH (09:07)
[2020-10-05] MEDS: FLUTICASONE NASAL SPRAY (FLONASE) 16 GM BTL NS SCH (09:15)
[2020-10-05] MEDS: polyethylene glycoL POWDER 17 GM (MIRALAX) PACK PO SCH (09:15)
[2020-10-05] MEDS: SALIVA STIMULANT MOUTH SPRAY (BIOTENE) 1.5 OZ MM SCH (09:15)
[2020-10-05] MEDS: aCETylcysteine 20% (MUCOMYST) 30ML SOLN VIAL PO SCH (09:24)
--- NOTE | 2020-10-05 09:33 | Occupational Ther Daily Note ---
OT Current Status-Daily Note Subjective Pt. in bed c/o he does not feel he can tolerate up right position much less in w/c to gym. Pt agreeable to OT/PT cotreat. he is hungry, and is looking forward to getting some food if he gets to have the colonoscopy today. Pt had difficulty breathing with weakness and dizziness while sitting EOB, pt returned to laying down. ADL-Treatment Therapy Code Descriptions/Definitions Functional [place] Measure: 0=Not Assessed/NA 4=Minimal Assistance 1=Total Assistance 5=Supervision or Setup 2=Maximal Assistance 6=Modified [place] 3=Moderate Assistance 7=Complete IndependenceSCALE: Activities may be completed with or without assistive devices. 5-Lkerlqtglu-ktpjvcb completes the activity by him/herself with no assistance from a helper. 5-Set-up or Clean-up Assistance-helper sets up or cleans up; patient completes activity. [place] assists only prior to or following the activity. 4-Supervision or Touching Assistance-helper provides verbal cues and/or touching/steadying and/or contact guard assistance as patient completes activity. Assistance may be provided throughout the activity or intermittently. 3-Partial/Moderate Assistance-helper does LESS THAN HALF the effort. [place] lifts, holds or supports trunk or limbs, but provides less than half the effort. 2-Substantial/Maximal Assistance-helper does MORE THAN HALF the effort. [place] lifts or holds trunk or limbs and provides more than half the effort. 4-Fiagxziyc-vegjcy does ALL the effort. Patient does none of the effort to complete the activity. Or, the assistance of 2 or more helpers is required for the patient to complete the activity. If activity was not attempted, code reason: 7-Patient Refused. 9-Not Applicable-not attempted and the patient did not perform the activity before the current illness, exacerbation or injury. 10-Not Attempted due to Environmental Limitations-(lack of equipment, weather restraints, etc.). 88-Not Attempted due to Medical Conditions or Safety Concerns. Shower/Bathe Self (QC): 2 (Sponge bath at bed level, pt washed UEs, chest and abdomen. OT washed all other parts.) On/Off Footwear: 1 (dependent to don TEDhose and gripper socks.) Other Treatment [id number]: PT/OT cotreat due to skill of 2 clinicians required which a vocational rehabilitation technician could perform in order to coordinate UE/LEs, and due to pt's limitations in functional mobility, transfers, strength and endurance. OT focused on UE placement, cues for sequencing, ADLs, while PT focused on LE placement, gross overall movements, and transfers. Pt supine in bed, completed activities/exerci ses through UEs/LEs that are preparatory exercises for standing, extensive rest breaks required between exercises. Pt sat EOB, min A sitting balance. Pt indicates SOB and dizziness, BP 111/58, HR 78, and O2 sats at 72% on 8 L. Pt layed back down, BP and O2 sats began to ascend with instruction to breathe in through nose and out through mat. Pt rolled side to side for bed bath. [id number] OT tx: OT assisted pt with finishing sponge bath and changing hospital gown. Nurse present to give pt medicine, O2 saturation taken, low 80%'s on 8L, pt instructed to complete deep breathing but had difficulty raising sats above 90%. Pt instructed on deep breathing, then able to take pills independently. Edema noted in BLEs, nurse aware. OT donned TEDhose and gripper socks for pt. Post OT tx, pt laying in bed, call light in reach and all needs met. Education OT Patient Education: Correct positioning, Modified ADL techniques, Progress toward Goal/Update tx plan, Purpose of tx/functional activities Teaching Recipient: Patient Teaching Methods: Discussion Response to Teaching: Verbalize Understanding OT Short Term Goals Short Term Goals Time Frame: Oct 10, 2020 Toileting hygiene: 2 Shower/bathe self: 2 Lower body dressin Putting on/taking off footwear: 2 OT Alf Goals Alf Goals Time Frame: Oct 21, 2020 Eating (QC): 6 Oral Hygiene (QC): 6 Toileting Hygiene (QC): 4 Shower/Bathe Self (QC): 4 Upper Body Dressing (QC): 5 Lower Body Dressing (QC): 4 On/Off Footwear (QC): 4 1=Demonstrate adherence to instructed precautions during ADL tasks. 2=Patient will verbalize/demonstrate understanding of assistive devices/modifications for ADL. 3=Patient will improve strength/tolerance for activity to enable patient to perform ADL's. OT Education/Plan Problem List/Assessment Assessment: Decreased Activ Tolerance, Decreased UE Strength, Impaired Bed Mobility, Impaired Funct Balance, Impaired I ADL's, Impaired Self-Care Skills Discharge Recommendations Plan/Recommendations: Continue POC Treatment Plan/Plan of Care Patient would benefit from OT for education, treatment and training to promote independence in ADL's, mobility, safety and/or upper extremity function for ADL's. Plan of Care: ADL Retraining, Functional Mobility, Group Exercise/Act as Ind, UE Funct Exercise/Act Treatment Duration: Oct 21, 2020 Frequency: At least 5 of 7 days/Wk (IRF) Estimated Hrs Per Day: 1.5 hours per day Agreement: Yes Rehab Potential: Fair Time/GCodes Start Time: 08:00 Stop Time: 09:30 Total Time Billed (hr/min): 90 Billed Treatment Time 1, EX 3 (45'), ADL 3 (45') ALEXUS PACHECO OT Oct 05, 2020 09:33
[2020-10-05] MEDS ORDERED: POTA10TA PO (10:11)
[2020-10-05] MEDS ORDERED: FURO40TA4 PO (10:11)
[2020-10-05] MEDS ORDERED: ATOR40TA70 PO (10:12)
[2020-10-05] MEDS: MICONAZOLE 2% POWDER (DESENEX AF) 90 GM TOP SCH (10:19)
[2020-10-05] MEDS: NYSTATIN CREAM (MYCOSTATIN) 30 GM TUBE TP SCH (10:19)
--- NOTE | 2020-10-05 10:30 | NUR ---
DR. JONES HERE AND UPDATED ON CONDITION. ABGS AND CXR ORDERED. DENIES PAIN. ADMITS TO FEELING ANXIOUS, REFUSED XANAX.
--- NOTE | 2020-10-05 10:35 | PM&R Progress Note ---
Subjective HPI/CC On Admission Date Seen by Provider: Oct 05, 2020 Time Seen by Provider: 10:40 Subjective/Events-last exam 10/05/20: Pt worse PAO2 49 Needs transferred upstairs 10/04/20: EGD was done but the colon prep was insufficient so will have that done today INR 1.9 Potassium 3.2 will give 40 mEq through his IV Pt with severe lung dysfunction maintained on 6-7 liters 10/03/20: Labs remain stable EGD/Colonoscopy will be performed by Dr Smith O2 maintained at current level Leg weakness is profound 10/02/20: Patient appears much better EGD/Colonoscopy tomorrow Patient reports scopes many years ago Hgb 9.3 stable Iron 46 so will give 1 dose of IV iron Really needs OAC but need scopes first then will start 10/01/2020: Patient much improved Meropenem and vancomycin maintained and tolerated well Status post 2 units of blood transfusion yesterday and now much improved hemoglobin of 9.1 Hemoccult stools are positive so contacted Dr. Smith and increase Protonix to 40 mg twice daily instead of just daily and listed pharmacological DVT prophylaxis is contraindicated due to active GI bleeding due suspicion from elevated BUN that bleeding is active Very complex issues Lungs sound much better Maintain on oxygen 6 L Slow recovery Legs are very weak severe myopathy noted 09/30/2020: Hemoglobin 6.8 and patient very symptomatic so we will transfuse 2 units with Lasix in between the units to prevent overload Still requiring [address] scan reviewed Patient had a better night sleep Denies any significant new issues Antibiotics maintain We will stop IV fluids Check meds and labs 09/29/20: Very complex issues overnight Reviewed chest x-ray done earlier in the day and it showed bilateral infiltrates and considering he had a Covid-like illness that prompted the hospital stay 1 month ago and considering his continued hypoxia managed with Lasix and steroids at [facility] I went ahead and did the sepsis work-up which revealed elevated lactic acid but not likely due to pneumonia but likely dehydration and volume depletion since he had thrush and was not eating or drinking well Covered him with broad-spectrum antibiotics Consulted Dr. Gamble Consulted Dr. Alanis IV fluids initiated Check echocardiogram Conferred with RN Reviewed therapy notes Check meds and labs Review of Systems Pulmonary: Dyspnea, Cough Objective Exam Vital Signs Vital Signs Date Time Temp Pulse Resp B/P (MAP) Pulse Ox O2 Delivery O2 Flow Rate FiO2 10/05/20 12:28 81 10/05/20 09:00 Nasal Cannula 8.00 10/05/20 06:55 92 10/05/20 06:10 36.4 20 115/56 (75) Capillary Refill : Less Than 3 Seconds General Appearance: No Apparent Distress, WD/WN, Chronically ill HEENT: PERRL/EOMI, Normal ENT Inspection, Pharynx Normal Neck: Full Range of Motion, Normal Inspection, Non Tender, Supple, Carotid Bruit Respiratory: Chest Non Tender, No Accessory Muscle Use, No Respiratory Distress, Decreased Breath Sounds Cardiovascular: Regular Rate, Rhythm, No Edema, No Gallop, No JVD, No Murmur, Normal Peripheral Pulses Gastrointestinal: Normal Bowel Sounds, No Organomegaly, No Pulsatile Mass, Non Tender, Soft Back: Normal Inspection, No CVA Tenderness, No Vertebral Tenderness Extremity: Normal Capillary Refill, Normal Inspection, Normal Range of Motion, Non Tender, No Calf Tenderness, No Pedal Edema Neurologic/Psychiatric: Alert, Oriented x3, Normal Mood/Affect, boilers inspector II-XII Norm as Tested, Abnormal Gait, Depressed Affect, Motor Weakness (severe 3/5 all extremities) Skin: Normal Color, Warm/Dry Lymphatic: No Adenopathy Results/Procedures Lab Laboratory Tests 10/05/20 06:20 Patient resulted labs reviewed. FIM Transfers Therapy Code Descriptions/Definitions Functional [place] Measure: 0=Not Assessed/NA 4=Minimal Assistance 1=Total Assistance 5=Supervision or Setup 2=Maximal Assistance 6=Modified [place] 3=Moderate Assistance 7=Complete IndependenceSCALE: Activities may be completed with or without assistive devices. 9-Ozzqbjcftb-zxqdayc completes the activity by him/herself with no assistance from a helper. 5-Set-up or Clean-up Assistance-helper sets up or cleans up; patient completes activity. [place] assists only prior to or following the activity. 4-Supervision or Touching Assistance-helper provides verbal cues and/or touching/steadying and/or contact guard assistance as patient completes activity. Assistance may be provided throughout the activity or intermittently. 3-Partial/Moderate Assistance-helper does LESS THAN HALF the effort. [place] lifts, holds or supports trunk or limbs, but provides less than half the effort. 2-Substantial/Maximal Assistance-helper does MORE THAN HALF the effort. [place] lifts or holds trunk or limbs and provides more than half the effort. 5-Lhclywxai-oumhuq does ALL the effort. Patient does none of the effort to complete the activity. Or, the assistance of 2 or more helpers is required for the patient to complete the activity. If activity was not attempted, code reason: 7-Patient Refused. 9-Not Applicable-not attempted and the patient did not perform the activity before the current illness, exacerbation or injury. 10-Not Attempted due to Environmental Limitations-(lack of equipment, weather restraints, etc.). 88-Not Attempted due to Medical Conditions or Safety Concerns. Roll Left to Right (QC): 3 Sit to Lying (QC): 2 Sit to Stand (QC): 2 Chair/Fra-xr-Nohvv Xfer(QC): 2 Car Transfer (QC): 1 Gait Training Does the Patient Walk?: No and Walking Goal IS indicated Walk 10 feet (QC): 3 Walk 50 ft with 2 Turns(QC): 88 Walk 150 ft (QC): 88 Walking 10ft/uneven surface-QC: 88 Wheelchair Training Does the Pt Use a Wheelchair?: Yes Wheel 50 ft with 2 turns (QC): 3 Wheel 150 ft (QC): 1 Type of Wheelchair: Manual Stair Training 1 Step (curb) (QC): 88 4 Steps (QC): 88 12 Steps (QC): 88 Balance Picking up an Object (QC): 88 ADL-Treatment Eating (QC): 6 (Pt indicates independent with feeding. No difficulty with amber nch, able to cut his food, use utensils, and bring food/drink to mouth.) Oral Hygiene (QC): 5 (set up at bed level) Shower/Bathe Self (QC): 2 (Sponge bath at bed level, pt washed UEs, chest and abdomen. OT washed all other parts.) Upper Body Dressing (QC): 3 ([place]) Lower Body Dressing (QC): 1 (total assist with donning socks.) On/Off Footwear (QC): 1 (dependent to don TEDhose and gripper socks.) Toileting Hygiene (QC): 1 (Total assist changing brief and performing hyiene after BM) Assessment/Plan Assessment and Plan Assess & Plan/Chief Complaint Assessment: COPD myopathy Hypoxia Abnormal CXR Thrush Coumadin treatment Respiratory failure DM GERD PHTN Plan: Check INR IRF protocol Dr Alanis and Dr Gamble consulted 09/29/20: Broad-spectrum antibiotics Pulmonology consultation Check labs Monitor oxygen level Monitor closely 09/30/20: Transfused 2 units of blood Hep-Lock IV fluid to prevent overload Lasix in between the blood Monitor oxygen level Maintain antibiotics Very complex issues 10/01/2020: Increase proton pump inhibitor to twice a day Consult Dr. Smith Noted elevated BUN with severe anemia status post 2 units of blood transfusion yesterday high suspicion for GI bleed likely upper from stress gastritis or ulcer Maintain antibiotics Monitor closely due to high risk for decompensation 10/02/20: Scopes tomorrow Monitor hgb closely Iron infusion x 1 Check labs in am Abx to be maintained 10/03/20: Scopes Monitor closely Monitor hgb O2 wean 10/04/20: Colonoscopy today Monitor closely Check labs tomorrow 10/05/20: DC to 4th floor Dr Gamble consultation (1) Myopathy (2) Atrial fibrillation (3) Warfarin anticoagulation (4) Diabetes mellitus (5) COPD (chronic obstructive pulmonary disease) (6) Hypoxemia (7) Volume overload (8) SAEID Melchor DO Oct 05, 2020 10:35
--- NOTE | 2020-10-05 10:45 | NUR ---
R.T. NOTIFIED OF ORDER FOR ABG'S.
--- NOTE | 2020-10-05 12:00 | NUR ---
R.T. AGAIN NOTIFIED OF ORDER FOR ABG. CXR DONE.
--- NOTE | 2020-10-05 12:15 | NUR ---
O2 INCREASED TO 15 L.
--- NOTE | 2020-10-05 12:30 | NUR ---
Jonathan CALLED ABG RESULTS TO DR. JONES AND PATIENT STARTED ON VAPOTHERM - READINGS 40 L AND 100%. CXR RESULTS SENT TO DR. JONES. DR. PÉREZ HERE TO SEE PATIENT. DAUGHTER ALLA, IZABEL, WAS UPDATED BY DR. JONES AND DNR ORDERED.
[2020-10-05 12:35] LABS: ABG BASE EXCESS 1.7 MMOL/L (-2.5-2.5); ABG OXYGEN SATURATION 84 % (94-100); ABG PCO2 43 MMHG (35-45); ABG PO2 49 MMHG (79-93); ABG TCO2 27.6 MMOL/L (21.0-31.0)
[2020-10-05 12:36] LABS: ALLENS TEST YES-POS; INSPIRED O2 12 L; VENTILATOR NO
--- NOTE | 2020-10-05 12:37 | Diagnostic Imaging Report ---
INDICATION: Rales. COMPARISON: 10/02/2020 FINDINGS: Single frontal radiographic view of the chest was obtained and again demonstrates diffuse mixed interstitial and alveolar infiltrates. There has been some interval progression of disease in the right upper and right lower lung, as well as the left base. Small effusions cannot be excluded. There is no pneumothorax. Cardiac silhouette is heavily obscured, but does appear mildly enlarged. Left upper extremity PICC line is seen in the high SVC near the junction of the innominate veins. Osseous structures are unchanged. IMPRESSION: 1. Interval progression of bilateral infiltrates. 2. Mild cardiomegaly. Dictated by: Dictated on workstation # [id number]
[2020-10-05] MEDS ORDERED: FUROSEMIDE 40 MG/4 ML INJ (LASIX) IVP ONE (13:00)
[2020-10-05] MEDS ORDERED: KCL 20 MEQ TAB (K-DUR) PO ONE ×2 (13:00→13:16)
[2020-10-05] MEDS ORDERED: FUROSEMIDE 40 MG/4 ML INJ (LASIX) ONE (13:01)
--- NOTE | 2020-10-05 13:14 | Discharge Summary ---
Diagnosis/Chief Complaint Date of Admission Sep 28, 2020 at 11:25 Date of Discharge Discharge Diagnosis Assessment: COPD myopathy Hypoxia Abnormal CXR Thrush Coumadin treatment Respiratory failure DM GERD PHTN Plan: Check INR IRF protocol Dr Alanis and Dr Gamble consulted 09/29/20: Broad-spectrum antibiotics Pulmonology consultation Check labs Monitor oxygen level Monitor closely 09/30/20: Transfused 2 units of blood Hep-Lock IV fluid to prevent overload Lasix in between the blood Monitor oxygen level Maintain antibiotics Very complex issues 10/01/2020: Increase proton pump inhibitor to twice a day Consult Dr. Smith Noted elevated BUN with severe anemia status post 2 units of blood transfusion yesterday high suspicion for GI bleed likely upper from stress gastritis or ulcer Maintain antibiotics Monitor closely due to high risk for decompensation 10/02/20: Scopes tomorrow Monitor hgb closely Iron infusion x 1 Check labs in am Abx to be maintained 10/03/20: Scopes Monitor closely Monitor hgb O2 wean 10/04/20: Colonoscopy today Monitor closely Check labs tomorrow 10/05/20: Move upstairs (1) Myopathy (2) Atrial fibrillation (3) Warfarin anticoagulation (4) Diabetes mellitus (5) COPD (chronic obstructive pulmonary disease) (6) Hypoxemia (7) Volume overload (8) Thrush Discharge Summary Discharge Physical Examination Allergies: Coded Allergies: No Allergy Information Available (Unverified , 09/28/20) Vitals & I&Os Vital Signs Date Time Temp Pulse Resp B/P (MAP) Pulse Ox O2 Delivery O2 Flow Rate FiO2 10/05/20 12:28 81 10/05/20 09:00 Nasal Cannula 8.00 10/05/20 06:55 92 10/05/20 06:10 36.4 20 115/56 (75) General Appearance: Alert, Oriented X3, Cooperative Abdominal: Normal Bowel Sounds Hospital Course Was the Problem List Reviewed?: Yes Hospital Course: Pt had a pretty complex hospital course for 7 days when he was admitted from [facility] after a complicated stay at [facility] moved to [facility] [place] [place] higher level of care and then to [facility] and then 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 He acquired B/L pneumonia, placed on Meropenem and Vancomycin. Dr. Gamble was consulted. Oxygen supplementation was maintained and close monitoring with IV Lasix and IV steroids. He had a drop in Hgb requiring transfusion. Dr. Smith was consulted. EGD and colonoscopy were planned EGD revealed no source of bleeding but colonoscopy was not a good prep so it was unable to be done and attempted again today and the decision was made because of his oxygen requirement that he would be unable to proceed on with the colonoscopy considering his advanced and rapid progression with ABG hypoxemia 49 with normal pH he was transferred up to 4th floor. He remains a DNR as he had placed at [facility]. I did talk to Vanessa his daughter in depth for the second time today regarding his status that was rapidly deteriorating. Dr. Gamble saw him in a consultation and agreed with the plan but his prognosis remained very guarded and she had been reporting two times he was in poor prognosis before but he has little reserve and significant hypoxemia requiring Vapotherm. The prognosis is very poor. Labs (last 24 hrs) Laboratory Tests 09/28/20 15:58: Glucometer 284H 09/28/20 20:35: White Blood Count 23.1H, Red Blood Count 3.01L, Hemoglobin 9.0L, Hematocrit 29L, Mean Corpuscular Volume 97, Mean Corpuscular Hemoglobin 30, Mean Corpuscular Hemoglobin Concent 31L, Red Cell Distribution Width 19.5H, Platelet Count 307, Mean Platelet Volume 11.2, Immature Granulocyte % (Auto) 2, Neutrophils (%) (Auto) 94H, Lymphocytes (%) (Auto) 2L, Monocytes (%) (Auto) 2, Eosinophils (%) (Auto) 0, Basophils (%) (Auto) 0, Neutrophils # (Auto) 21.6H, Lymphocytes # (Auto) 0.5L, Monocytes # (Auto) 0.6, Eosinophils # (Auto) 0.0, Basophils # (Auto) 0.0, Immature Granulocyte # (Auto) 0.4H, Neutrophils % (Manual) 96, Lymphocytes % (Manual) 3, Monocytes % (Manual) 1, Eosinophils % (Manual) 0, Basophils % (Manual) 0, Band Neutrophils 0, Hypochromasia SLIGHT, Poikilocytosis SLIGHT, Anisocytosis MODERATE, Rouleau SLIGHT, Sodium Level 139, Potassium Level 5.0, Chloride Level 101, Carbon Dioxide Level 28, Anion Gap 10, Blood Urea Nitrogen 53H, Creatinine 1.52H, Estimat Glomerular Filtration Rate 44, BUN/Creatinine Ratio 35, Glucose Level 317H, Lactic Acid Level 2.73*H, Calcium Level 8.0L, Corrected Calcium 9.1, Total Bilirubin 0.5, Aspartate Amino Transf (AST/SGOT) 35H, Alanine Aminotransferase (ALT/SGPT) 95H, Alkaline Phosphatase 119, B-Type Natriuretic Peptide 68.7, Total Protein 5.3L, Albumin 2.6L, Procalcitonin 0.13H 09/28/20 21:13: Glucometer 280H 09/28/20 23:05: Lactic Acid Level 3.37*H 09/29/20 04:50: White Blood Count 16.2H, Red Blood Count 2.54L, Hemoglobin 7.5L, Hematocrit 25L, Mean Corpuscular Volume 97, Mean Corpuscular Hemoglobin 30, Mean Corpuscular Hemoglobin Concent 30L, Red Cell Distribution Width 19.6H, Platelet Count 236, Mean Platelet Volume 11.1, Immature Granulocyte % (Auto) 2, Neutrophils (%) (Auto) 87H, Lymphocytes (%) (Auto) 6L, Monocytes (%) (Auto) 5, Eosinophils (%) (Auto) 0, Basophils (%) (Auto) 0, Neutrophils # (Auto) 14.1H, Lymphocytes # (Auto) 0.9L, Monocytes # (Auto) 0.8, Eosinophils # (Auto) 0.0, Basophils # (Auto) 0.0, Immature Granulocyte # (Auto) 0.2H, Neutrophils % (Manual) 90, Lymphocytes % (Manual) 6, Monocytes % (Manual) 4, Anisocytosis MODERATE, Microcytosis SLIGHT, Macrocytosis SLIGHT, Elliptocytes SLIGHT, Prothrombin Time 19.3H, INR Comment 1.6H, Sodium Level 140, Potassium Level 4.3, Chloride Level 103, Carbon Dioxide Level 28, Anion Gap 9, Blood Urea Nitrogen 51H, Creatinine 1.21, Estimat Glomerular Filtration Rate 58, BUN/Creatinine Ratio 42, Glucose Level 130H, Lactic Acid Level 1.17, Calcium Level 7.2L, Corrected Calcium 8.6, Total Bilirubin 0.4, Aspartate Amino Transf (AST/SGOT) 29, Alanine Aminotransferase (ALT/SGPT) 76H, Alkaline Phosphatase 92, Total Protein 4.3L, Albumin 2.2L 09/29/20 05:17: Glucometer 113H 09/29/20 11:00: Glucometer 112H 09/29/20 15:35: Glucometer 159H 09/29/20 19:48: Glucometer 277H 09/30/20 05:20: Glucometer 157H 09/30/20 05:33: White Blood Count 13.2H, Red Blood Count 2.32L, Hemoglobin 6.8*L, Hematocrit 22L , Mean Corpuscular Volume 96, Mean Corpuscular Hemoglobin 29, Mean Corpuscular Hemoglobin Concent 31L, Red Cell Distribution Width 19.2H, Platelet Count 198, Mean Platelet Volume 11.0, Immature Granulocyte % (Auto) 2, Neutrophils (%) (Auto) 86H, Lymphocytes (%) (Auto) 6L, Monocytes (%) (Auto) 5, Eosinophils (%) (Auto) 0, Basophils (%) (Auto) 0, Neutrophils # (Auto) 11.4H, Lymphocytes # (Auto) 0.8L, Monocytes # (Auto) 0.7, Eosinophils # (Auto) 0.0, Basophils # (Auto) 0.0, Immature Granulocyte # (Auto) 0.2H, Prothrombin Time 19.9H, INR Comment 1.6H, Sodium Level 139, Potassium Level 4.3, Chloride Level 104, Carbon Dioxide Level 27, Anion Gap 8, Blood Urea Nitrogen 49H, Creatinine 0.95, Estimat Glomerular Filtration Rate > 60, BUN/Creatinine Ratio 52, Glucose Level 132H, Calcium Level 7.2L, Corrected Calcium 8.6, Iron Level 46, Total Bilirubin 0.4, Aspartate Amino Transf (AST/SGOT) 26, Alanine Aminotransferase (ALT/SGPT) 65H, Alkaline Phosphatase 79, Total Protein 4.1L, Albumin 2.2L, Procalcitonin 0.11H 09/30/20 11:45: Glucometer 175H 09/30/20 15:41: Glucometer 184H 09/30/20 21:02: Glucometer 295H 10/01/20 04:35: White Blood Count 14.1H, Red Blood Count 3.02L, Hemoglobin 9.1#L, Hematocrit 28L , Mean Corpuscular Volume 94, Mean Corpuscular Hemoglobin 30, Mean Corpuscular Hemoglobin Concent 32, Red Cell Distribution Width 18.2H, Platelet Count 178, Mean Platelet Volume 10.8, Immature Granulocyte % (Auto) 2, Neutrophils (%) (Auto) 88H, Lymphocytes (%) (Auto) 5L, Monocytes (%) (Auto) 5, Eosinophils (%) (Auto) 0, Basophils (%) (Auto) 0, Neutrophils # (Auto) 12.4H, Lymphocytes # (Auto) 0.6L, Monocytes # (Auto) 0.8, Eosinophils # (Auto) 0.0, Basophils # (Auto) 0.0, Immature Granulocyte # (Auto) 0.3H, Prothrombin Time 21.3H, INR Comment 1.8H, Sodium Level 143, Potassium Level 4.1, Chloride Level 106, Carbon Dioxide Level 27, Anion Gap 10, Blood Urea Nitrogen 51H, Creatinine 1.06, Estimat Glomerular Filtration Rate > 60, BUN/Creatinine Ratio 48, Glucose Level 128H, Calcium Level 7.2L, Corrected Calcium 8.6, Total Bilirubin 0.5, Aspartate Amino Transf (AST/SGOT) 27, Alanine Aminotransferase (ALT/SGPT) 67H, Alkaline Phosphatase 91, Total Protein 4.0L, Albumin 2.3L 10/01/20 09:25: Stool Occult Blood Immunoassay POSITIVE 10/01/20 11:29: Glucometer 167H 10/01/20 12:15: Vancomycin Level Trough 19.4 10/01/20 15:55: Glucometer 132H 10/01/20 20:55: Glucometer 205H 10/02/20 04:45: Coronavirus (COVID-19)(PCR) Negative 10/02/20 06:01: Glucometer 130H 10/02/20 09:25: White Blood Count 14.2H, Red Blood Count 3.14L, Hemoglobin 9.3L, Hematocrit 30L, Mean Corpuscular Volume 96, Mean Corpuscular Hemoglobin 30, Mean Corpuscular Hemoglobin Concent 31L, Red Cell Distribution Width 18.6H, Platelet Count 157, Mean Platelet Volume 10.3, Immature Granulocyte % (Auto) 1, Neutrophils (%) (Auto) 87H, Lymphocytes (%) (Auto) 6L, Monocytes (%) (Auto) 5, Eosinophils (%) (Auto) 0, Basophils (%) (Auto) 0, Neutrophils # (Auto) 12.3H, Lymphocytes # (Auto) 0.9L, Monocytes # (Auto) 0.7, Eosinophils # (Auto) 0.1, Basophils # (Auto) 0.0, Immature Granulocyte # (Auto) 0.2H, Sodium Level 142, Potassium Level 4.1, Chloride Level 107, Carbon Dioxide Level 26, Anion Gap 9, Blood Urea Nitrogen 49H, Creatinine 0.96, Estimat Glomerular Filtration Rate > 60, BUN/Creatinine Ratio 51, Glucose Level 183H, Calcium Level 7.5L, Corrected Calcium 8.9, Total Bilirubin 0.6, Aspartate Amino Transf (AST/SGOT) 30, Alanine Aminotransferase (ALT/SGPT) 70H, Alkaline Phosphatase 80, Total Protein 4.1L, Albumin 2.3L 10/02/20 11:28: Glucometer 202H 10/02/20 15:34: Glucometer 188H 10/02/20 21:06: Glucometer 307H 10/03/20 05:10: Glucometer 77, White Blood Count 12.6H, Red Blood Count 3.18L, Hemoglobin 9.4L, Hematocrit 30L, Mean Corpuscular Volume 94, Mean Corpuscular Hemoglobin 30, Mean Corpuscular Hemoglobin Concent 32, Red Cell Distribution Width 17.9H, Platelet Count 156, Mean Platelet Volume 10.5, Immature Granulocyte % (Auto) 1, Neutrophils (%) (Auto) 86H, Lymphocytes (%) (Auto) 6L, Monocytes (%) (Auto) 6, Eosinophils (%) (Auto) 0, Basophils (%) (Auto) 0, Neutrophils # (Auto) 10.9H, Lymphocytes # (Auto) 0.7L, Monocytes # (Auto) 0.8, Eosinophils # (Auto) 0.0, Basophils # (Auto) 0.0, Immature Granulocyte # (Auto) 0.2H, Sodium Level 144, Potassium Level 3.6, Chloride Level 108H, Carbon Dioxide Level 26, Anion Gap 10, Blood Urea Nitrogen 39H, Creatinine 0.80, Estimat Glomerular Filtration Rate > 60, BUN/Creatinine Ratio 49, Glucose Level 76, Calcium Level 7.1L, Corrected Calcium 8.5, Total Bilirubin 0.6, Aspartate Amino Transf (AST/SGOT) 27, Alanine Aminotransferase (ALT/SGPT) 63H, Alkaline Phosphatase 85, Total Protein 4.1L, Albumin 2.3L, Smear Scan 10/03/20 11:37: Glucometer 152H 10/03/20 15:50: Glucometer 311H 10/03/20 20:29: Glucometer 296H 10/04/20 05:36: Glucometer 55*L 10/04/20 05:55: White Blood Count 14.7H, Red Blood Count 3.15L, Hemoglobin 9.3L, Hematocrit 30L, Mean Corpuscular Volume 95, Mean Corpuscular Hemoglobin 30, Mean Corpuscular Hemoglobin Concent 31L, Red Cell Distribution Width 17.9H, Platelet Count 148, Mean Platelet Volume 10.9, Immature Granulocyte % (Auto) 1, Neutrophils (%) (Auto) 88H, Lymphocytes (%) (Auto) 5L, Monocytes (%) (Auto) 6, Eosinophils (%) (Auto) 1, Basophils (%) (Auto) 0, Neutrophils # (Auto) 12.9H, Lymphocytes # (Auto) 0.7L, Monocytes # (Auto) 0.9, Eosinophils # (Auto) 0.1, Basophils # (Auto) 0.0, Immature Granulocyte # (Auto) 0.1, Prothrombin Time 21.9H, INR Comment 1.9H, Sodium Level 144, Potassium Level 3.2L, Chloride Level 109H, Carbon Dioxide Level 27, Anion Gap 8, Blood Urea Nitrogen 35H, Creatinine 0.79, Estimat Glomerular Filtration Rate > 60, BUN/Creatinine Ratio 44, Glucose Level 55*L, Calcium Level 7.0L, Corrected Calcium 8.4L, Total Bilirubin 0.6, Aspartate Amino Transf (AST/SGOT) 30, Alanine Aminotransferase (ALT/SGPT) 64H, Alkaline Phosphatase 82, Total Protein 4.0L, Albumin 2.2L 10/04/20 06:26: Glucometer 99 10/04/20 08:27: Glucometer 104 10/04/20 10:52: Glucometer 131H 10/04/20 15:37: Glucometer 237H 10/04/20 20:34: Glucometer 338H 10/05/20 06:03: Glucometer 102 10/05/20 06:20: White Blood Count 14.3H, Red Blood Count 3.08L, Hemoglobin 9.2L, Hematocrit 30L, Mean Corpuscular Volume 96, Mean Corpuscular Hemoglobin 30, Mean Corpuscular Hemoglobin Concent 31L, Red Cell Distribution Width 18.5H, Platelet Count 141, Mean Platelet Volume 10.3, Immature Granulocyte % (Auto) 1, Neutrophils (%) (Auto) 87H, Lymphocytes (%) (Auto) 6L, Monocytes (%) (Auto) 6, Eosinophils (%) (Auto) 0, Basophils (%) (Auto) 0, Neutrophils # (Auto) 12.4H, Lymphocytes # (Auto) 0.8L, Monocytes # (Auto) 0.9, Eosinophils # (Auto) 0.1, Basophils # (Auto) 0.0, Immature Granulocyte # (Auto) 0.1, Prothrombin Time 26.7H, INR Comm ent 2.4H, Sodium Level 142, Potassium Level 3.6, Chloride Level 109H, Carbon Dioxide Level 26, Anion Gap 7, Blood Urea Nitrogen 29H, Creatinine 0.78, Estimat Glomerular Filtration Rate > 60, BUN/Creatinine Ratio 37, Glucose Level 100, Calcium Level 7.3L, Corrected Calcium 8.7, Total Bilirubin 0.5, Aspartate Amino Transf (AST/SGOT) 32, Alanine Aminotransferase (ALT/SGPT) 65H, Alkaline Phosphatase 84, Total Protein 4.3L, Albumin 2.2L 10/05/20 10:49: Glucometer 151H 10/05/20 12:24: Blood Gas Puncture Site RT BRACH, Blood Gas Patient Temperature 36.0, Arterial Blood pH 7.40, Arterial Blood Partial Pressure CO2 43, Arterial Blood Partial Pressure O2 49L, Arterial Blood HCO3 26, Arterial Blood Total CO2 27.6, Arterial Blood Oxygen Saturation 84L, Arterial Blood Base Excess 1.7, Iker Test YES-POS, Blood Gas Ventilator Setting NO, Blood Gas Inspired Oxygen 12 L Microbiology 10/02/20 MRSA Screen - Final, Complete MRSA not isolated 09/28/20 Blood Culture - Final, Complete No growth Pending Labs Microbiology Date/Time Source Procedure Growth Status 10/02/20 04:45 Nasal MRSA Screen - Final MRSA not isolated Complete 09/28/20 23:05 Peripheral Lt Hand Blood Culture - Final No growth Complete 09/28/20 20:35 Peripheral Rt Ac Blood Culture - Final No growth Complete Laboratory Tests 09/28/20 15:58: Glucometer 284 09/28/20 20:35: White Blood Count 23.1, Red Blood Count 3.01, Hemoglobin 9.0, Hematocrit 29, Mean Corpuscular Volume 97, Mean Corpuscular Hemoglobin 30, Mean Corpuscular Hemoglobin Concent 31, Red Cell Distribution Width 19.5, Platelet Count 307, Mean Platelet Volume 11.2, Immature Granulocyte % (Auto) 2, Neutrophils (%) (Auto) 94, Lymphocytes (%) (Auto) 2, Monocytes (%) (Auto) 2, Eosinophils (%) (Auto) 0, Basophils (%) (Auto) 0, Neutrophils # (Auto) 21.6, Lymphocytes # (Auto) 0.5, Monocytes # (Auto) 0.6, Eosinophils # (Auto) 0.0, Basophils # (Auto) 0.0, Immature Granulocyte # (Auto) 0.4, Neutrophils % (Manual) 96, Lymphocytes % (Manual) 3, Monocytes % (Manual) 1, Eosinophils % (Manual) 0, Basophils % (Manual) 0, Band Neutrophils 0, Hypochromasia SLIGHT, Poikilocytosis SLIGHT, Anisocytosis MODERATE, Rouleau SLIGHT, Sodium Level 139, Potassium Level 5.0, Chloride Level 101, Carbon Dioxide Level 28, Anion Gap 10, Blood Urea Nitrogen 53, Creatinine 1.52, Estimat Glomerular Filtration Rate 44, BUN/Creatinine Ratio 35, Glucose Level 317, Lactic Acid Level 2.73, Calcium Level 8.0, Corrected Calcium 9.1, Total Bilirubin 0.5, Aspartate Amino Transf (AST/SGOT) 35, Alanine Aminotransferase (ALT/SGPT) 95, Alkaline Phosphatase 119, B-Type Natriuretic Peptide 68.7, Total Protein 5.3, Albumin 2.6, Procalcitonin 0.13 09/28/20 21:13: Glucometer 280 09/28/20 23:05: Lactic Acid Level 3.37 09/29/20 04:50: White Blood Count 16.2, Red Blood Count 2.54, Hemoglobin 7.5, Hematocrit 25, Mean Corpuscular Volume 97, Mean Corpuscular Hemoglobin 30, Mean Corpuscular Hemoglobin Concent 30, Red Cell Distribution Width 19.6, Platelet Count 236, Mean Platelet Volume 11.1, Immature Granulocyte % (Auto) 2, Neutrophils (%) (Auto) 87, Lymphocytes (%) (Auto) 6, Monocytes (%) (Auto) 5, Eosinophils (%) (Auto) 0, Basophils (%) (Auto) 0, Neutrophils # (Auto) 14.1, Lymphocytes # (Auto) 0.9, Monocytes # (Auto) 0.8, Eosinophils # (Auto) 0.0, Basophils # (Auto) 0.0, Immature Granulocyte # (Auto) 0.2, Neutrophils % (Manual) 90, Lymphocytes % (Manual) 6, Monocytes % (Manual) 4, Anisocytosis MODERATE, Microcytosis SLIGHT, Macrocytosis SLIGHT, Elliptocytes SLIGHT, Prothrombin Time 19.3, INR Comment 1.6, Sodium Level 140, Potassium Level 4.3, Chloride Level 103, Carbon Dioxide Level 28, Anion Gap 9, Blood Urea Nitrogen 51, Creatinine 1.21, Estimat Glomerular Filtration Rate 58, BUN/Creatinine Ratio 42, Glucose Level 130, Lactic Acid Level 1.17, Calcium Level 7.2, Corrected Calcium 8.6, Total Bilirubin 0.4, Aspartate Amino Transf (AST/SGOT) 29, Alanine Aminotransferase (ALT/SGPT) 76, Alkaline Phosphatase 92, Total Protein 4.3, Albumin 2.2 09/29/20 05:17: Glucometer 113 09/29/20 11:00: Glucometer 112 09/29/20 15:35: Glucometer 159 09/29/20 19:48: Glucometer 277 09/30/20 05:20: Glucometer 157 09/30/20 05:33: White Blood Count 13.2, Red Blood Count 2.32, Hemoglobin 6.8, Hematocrit 22, Mean Corpuscular Volume 96, Mean Corpuscular Hemoglobin 29, Mean Corpuscular Hemoglobin Concent 31, Red Cell Distribution Width 19.2, Platelet Count 198, Mean Platelet Volume 11.0, Immature Granulocyte % (Auto) 2, Neutrophils (%) (Auto) 86, Lymphocytes (%) (Auto) 6, Monocytes (%) (Auto) 5, Eosinophils (%) (Auto) 0, Basophils (%) (Auto) 0, Neutrophils # (Auto) 11.4, Lymphocytes # (Auto) 0.8, Monocytes # (Auto) 0.7, Eosinophils # (Auto) 0.0, Basophils # (Auto) 0.0, Immature Granulocyte # (Auto) 0.2, Prothrombin Time 19.9, INR Comment 1.6, Sodium Level 139, Potassium Level 4.3, Chloride Level 104, Carbon Dioxide Level 27, Anion Gap 8, Blood Urea Nitrogen 49, Creatinine 0.95, Estimat Glomerular Filtration Rate > 60, BUN/Creatinine Ratio 52, Glucose Level 132, Calcium Level 7.2, Corrected Calcium 8.6, Iron Level 46, Total Bilirubin 0.4, Aspartate Amino Transf (AST/SGOT) 26, Alanine Aminotransferase (ALT/SGPT) 65, Alkaline Phos phatase 79, Total Protein 4.1, Albumin 2.2, Procalcitonin 0.11 09/30/20 11:45: Glucometer 175 09/30/20 15:41: Glucometer 184 09/30/20 21:02: Glucometer 295 10/01/20 04:35: White Blood Count 14.1, Red Blood Count 3.02, Hemoglobin 9.1, Hematocrit 28, Mean Corpuscular Volume 94, Mean Corpuscular Hemoglobin 30, Mean Corpuscular Hemoglobin Concent 32, Red Cell Distribution Width 18.2, Platelet Count 178, Mean Platelet Volume 10.8, Immature Granulocyte % (Auto) 2, Neutrophils (%) (Auto) 88, Lymphocytes (%) (Auto) 5, Monocytes (%) (Auto) 5, Eosinophils (%) (Au to) 0, Basophils (%) (Auto) 0, Neutrophils # (Auto) 12.4, Lymphocytes # (Auto) 0.6, Monocytes # (Auto) 0.8, Eosinophils # (Auto) 0.0, Basophils # (Auto) 0.0, Immature Granulocyte # (Auto) 0.3, Prothrombin Time 21.3, INR Comment 1.8, Sodium Level 143, Potassium Level 4.1, Chloride Level 106, Carbon Dioxide Level 27, Anion Gap 10, Blood Urea Nitrogen 51, Creatinine 1.06, Estimat Glomerular Filtration Rate > 60, BUN/Creatinine Ratio 48, Glucose Level 128, Calcium Level 7.2, Corrected Calcium 8.6, Total Bilirubin 0.5, Aspartate Amino Transf (AST/SGOT) 27, Alanine Aminotransferase (ALT/SGPT) 67, Alkaline Phosphatase 91, Total Protein 4.0, Albumin 2.3 10/01/20 09:25: Stool Occult Blood Immunoassay POSITIVE 10/01/20 11:29: Glucometer 167 10/01/20 12:15: Vancomycin Level Trough 19.4 10/01/20 15:55: Glucometer 132 10/01/20 20:55: Glucometer 205 10/02/20 04:45: Coronavirus (COVID-19)(PCR) Negative 10/02/20 06:01: Glucometer 130 10/02/20 09:25: White Blood Count 14.2, Red Blood Count 3.14, Hemoglobin 9.3, Hematocrit 30, Mean Corpuscular Volume 96, Mean Corpuscular Hemoglobin 30, Mean Corpuscular Hemoglobin Concent 31, Red Cell Distribution Width 18.6, Platelet Count 157, Mean Platelet Volume 10.3, Immature Granulocyte % (Auto) 1, Neutrophils (%) (Auto) 87, Lymphocytes (%) (Auto) 6, Monocytes (%) (Auto) 5, Eosinophils (%) (Auto) 0, Basophils (%) (Auto) 0, Neutrophils # (Auto) 12.3, Lymphocytes # (Auto) 0.9, Monocytes # (Auto) 0.7, Eosinophils # (Auto) 0.1, Basophils # (Auto) 0.0, Immature Granulocyte # (Auto) 0.2, Sodium Level 142, Potassium Level 4.1, Chloride Level 107, Carbon Dioxide Level 26, Anion Gap 9, Blood Urea Nitrogen 49, Creatinine 0.96, Estimat Glomerular Filtration Rate > 60, BUN/Creatinine Ratio 51, Glucose Level 183, Calcium Level 7.5, Corrected Calcium 8.9, Total Bilirubin 0.6, Aspartate Amino Transf (AST/SGOT) 30, Alanine Aminotransferase (ALT/SGPT) 70, Alkaline Phosphatase 80, Total Protein 4.1, Albumin 2.3 10/02/20 11:28: Glucometer 202 10/02/20 15:34: Glucometer 188 10/02/20 21:06: Glucometer 307 10/03/20 05:10: Glucometer 77, White Blood Count 12.6, Red Blood Count 3.18, Hemoglobin 9.4, Hematocrit 30, Mean Corpuscular Volume 94, Mean Corpuscular Hemoglobin 30, Mean Corpuscular Hemoglobin Concent 32, Red Cell Distribution Width 17.9, Platelet Count 156, Mean Platelet Volume 10.5, Immature Granulocyte % (Auto) 1, Neutrophils (%) (Auto) 86, Lymphocytes (%) (Auto) 6, Monocytes (%) (Auto) 6, Eosinophils (%) (Auto) 0, Basophils (%) (Auto) 0, Neutrophils # (Auto) 10.9, Lymphocytes # (Auto) 0.7, Monocytes # (Auto) 0.8, Eosinophils # (Auto) 0.0, Basophils # (Auto) 0.0, Immature Granulocyte # (Auto) 0.2, Sodium Level 144, Potassium Level 3.6, Chloride Level 108, Carbon Dioxide Level 26, Anion Gap 10, Blood Urea Nitrogen 39, Creatinine 0.80, Estimat Glomerular Filtration Rate > 60 , BUN/Creatinine Ratio 49, Glucose Level 76, Calcium Level 7.1, Corrected Calcium 8.5, Total Bilirubin 0.6, Aspartate Amino Transf (AST/SGOT) 27, Alanine Aminotransferase (ALT/SGPT) 63, Alkaline Phosphatase 85, Total Protein 4.1, Albumin 2.3, Smear Scan 10/03/20 11:37: Glucometer 152 10/03/20 15:50: Glucometer 311 10/03/20 20:29: Glucometer 296 10/04/20 05:36: Glucometer 55 10/04/20 05:55: White Blood Count 14.7, Red Blood Count 3.15, Hemoglobin 9.3, Hematocrit 30, Mean Corpuscular Volume 95, Mean Corpuscular Hemoglobin 30, Mean Corpuscular Hemoglobin Concent 31, Red Cell Distribution Width 17.9, Platelet Count 148, Mean Platelet Volume 10.9, Immature Granulocyte % (Auto) 1, Neutrophils (%) (Auto) 88, Lymphocytes (%) (Auto) 5, Monocytes (%) (Auto) 6, Eosinophils (%) (Auto) 1, Basophils (%) (Auto) 0, Neutrophils # (Auto) 12.9, Lymphocytes # (Auto) 0.7, Monocytes # (Auto) 0.9, Eosinophils # (Auto) 0.1, Basophils # (Auto) 0.0, Immature Granulocyte # (Auto) 0.1, Prothrombin Time 21.9, INR Comment 1.9, Sodium Level 144, Potassium Level 3.2, Chloride Level 109, Carbon Dioxide Level 27, Anion Gap 8, Blood Urea Nitrogen 35, Creatinine 0.79, Estimat Glomerular Filtration Rate > 60, BUN/Creatinine Ratio 44, Glucose Level 55, Calcium Level 7.0, Corrected Calcium 8.4, Total Bilirubin 0.6, Aspartate Amino Transf (AST/SGOT) 30, Alanine Aminotransferase (ALT/SGPT) 64, Alkaline Phosphatase 82, Total Protein 4.0, Albumin 2.2 10/04/20 06:26: Glucometer 99 10/04/20 08:27: Glucometer 104 10/04/20 10:52: Glucometer 131 12/8/20 15:37: Glucometer 237 10/04/20 20:34: Glucometer 338 10/05/20 06:03: Glucometer 102 10/05/20 06:20: White Blood Count 14.3, Red Blood Count 3.08, Hemoglobin 9.2, Hematocrit 30, Mean Corpuscular Volume 96, Mean Corpuscular Hemoglobin 30, Mean Corpuscular Hemoglobin Concent 31, Red Cell Distribution Width 18.5, Platelet Count 141, Mean Platelet Volume 10.3, Immature Granulocyte % (Auto) 1, Neutrophils (%) (Auto) 87, Lymphocytes (%) (Auto) 6, Monocytes (%) (Auto) 6, Eosinophils (%) (Auto) 0, Basophils (%) (Auto) 0, Neutrophils # (Auto) 12.4, Lymphocytes # (Auto) 0.8, Monocytes # (Auto) 0.9, Eosinophils # (Auto) 0.1, Basophils # (Auto) 0.0, Immature Granulocyte # (Auto) 0.1, Prothrombin Time 26.7, INR Comment 2.4, Sodium Level 142, Potassium Level 3.6, Chloride Level 109, Carbon Dioxide Level 26, Anion Gap 7, Blood Urea Nitrogen 29, Creatinine 0.78, Estimat Glomerular Filtration Rate > 60, BUN/Creatinine Ratio 37, Glucose Level 100, Calcium Level 7.3, Corrected Calcium 8.7, Total Bilirubin 0.5, Aspartate Amino Transf (AST/SGOT) 32, Alanine Aminotransferase (ALT/SGPT) 65, Alkaline Phosphatase 84, Total Protein 4.3, Albumin 2.2 10/05/20 10:49: Glucometer 151 10/05/20 12:24: Blood Gas Puncture Site RT BRACH, Blood Gas Patient Temperature 36.0, Arterial Blood pH 7.40, Arterial Blood Partial Pressure CO2 43, Arterial Blood Partial Pressure O2 49, Arterial Blood HCO3 26, Arterial Blood Total CO2 27.6, Arterial Blood Oxygen Saturation 84, Arterial Blood Base Excess 1.7, Iker Test YES-POS, Blood Gas Ventilator Setting NO, Blood Gas Inspired Oxygen 12 L Discharge Home Medications: Active Scripts Active Reported Atorvastatin Calcium 40 Mg Tablet 40 Mg PO HS K-Tab ER (Potassium Chloride) 10 Meq Tablet.er 10 Meq PO DAILY Furosemide 40 Mg Tablet 40 Mg PO DAILY Tylenol Arthritis (Acetaminophen) 650 Mg Tablet.er 650 Mg PO Q6H PRN Warfarin Sodium 1 Mg Tablet 1 Mg PO 1700 Multivitamins with Minerals (Multivitamin with Minerals) 1 Each Tablet 1 Each PO DAILY Amiodarone HCl 200 Mg Tablet 200 Mg PO BID LAST FILLED 07-27-2020 #60/30 DAY SUPPLY Instructions to patient/family Please see electronic discharge instructions given to patient. Diagnosis/Problems Diagnosis/Problems (1) Myopathy (2) Atrial fibrillation (3) Warfarin anticoagulation (4) Diabetes mellitus (5) COPD (chronic obstructive pulmonary disease) (6) Hypoxemia (7) Volume overload (8) Thrush Clinical Quality Measures DVT/VTE Risk/Contraindication: Risk Factor Score Per Nursin RFS Level Per Nursing on Admit: 4+=Very High Contraindications-Pharm: Other *list below* Other: SAEID FORREST DO Oct 05, 2020 13:14
--- NOTE | 2020-10-05 13:14 | Pulmonary Consultation ---
History of Present Illness History of Present Illness Date Seen by Provider: Oct 05, 2020 Time Seen by Provider: 13:11 Date of Admission Allergies and Home Medications Allergies Coded Allergies: No Allergy Information Available (Unverified , 09/28/20) Home Medications Acetaminophen 650 Mg Tablet.er, 650 MG PO Q6H PRN for PAIN-MILD (1-4) OR TEMPATURE, (Reported) Amiodarone HCl 200 Mg Tablet, 200 MG PO BID, (Reported) LAST FILLED 07-27-2020 #60/30 DAY SUPPLY Atorvastatin Calcium 40 Mg Tablet, 40 MG PO HS, (Reported) Furosemide 40 Mg Tablet, 40 MG PO DAILY, (Reported) Multivitamin with Minerals 1 Each Tablet, 1 EACH PO DAILY, (Reported) Potassium Chloride 10 Meq Tablet.er, 10 MEQ PO DAILY, (Reported) Warfarin Sodium 1 Mg Tablet, 1 MG PO 1700, (Reported) Past Zkqdhxv-Gmybln-Vlbxdc Hx Past Med/Social Hx: Reviewed Nursing Past Med/Soc Hx, Reviewed and Corrections made Patient Social History Alcohol Use: Past History Alcohol Beverage of Choice: Beer, [place] Recreational Drug Use: No Smoking Status: Unknown if Ever Smoked Type Used: Cigarettes Former Smoker, Quit: Oct 29, 1979 Recent Foreign Travel: No Contact w/Someone Who Travel: No Recent Infectious Disease Expo: No Recent Hopitalizations: No Immunizations Up To Date PED Vaccines UTD: Yes Date of Pneumonia Vaccine: Jul 27, 2020 Date of Influenza Vaccine: Jul 27, 2020 Seasonal Allergies Seasonal Allergies: No Past Medical History Surgeries: Yes Renal (kidney stones) Respiratory: Yes Pneumonia, Pulmonary Embolism Currently Using CPAP: No Currently Using BIPAP: No Cardiac: Yes Atrial Fibrillation, Chronic Edema/Swelling Neurological: No Genitourinary: Yes Renal Failure Gastrointestinal: Yes Gastroesophageal Reflux Musculoskeletal: No Endocrine: Yes Diabetes, Insulin dep Are Your Blood Sugars Over 250: Yes HEENT: No Loss of Vision: Denies Hearing Impairment: Hard of Hearing Cancer: No Psychosocial: No Integumentary: Yes Eczema Blood Disorders: No Adverse Reaction/Blood Tranf: No Family Medical History Stroke (mother), Other Conditions/Hx (states his father at 61, but "I never figured out why") Review of Systems Time Seen by Provider: 13:11 Sepsis Event Evaluation Height, Weight, BMI Height: '" Weight: lbs. oz. kg; 26.02 BMI Method: Exam Exam Vital Signs Date Time Temp Pulse Resp B/P (MAP) Pulse Ox O2 Delivery O2 Flow Rate FiO2 10/05/20 07:00 8.00 10/05/20 06:55 92 High Flow N/C 8.00 10/05/20 06:35 76 10/05/20 06:10 36.4 73 20 115/56 (75) 92 High Flow N/C 8.00 10/05/20 01:00 76 10/04/20 20:45 Nasal Cannula 8.00 10/04/20 19:27 93 High Flow N/C 8.00 10/04/20 19:00 84 10/04/20 19:00 91 10/04/20 16:00 36.6 87 20 133/60 (84) 92 OxyMask 8.00 I & O 10/05/20 07:00 Intake Total 2240 ml Balance 2240 ml Height & Weight Height: '" Weight: lbs. oz. kg; 26.02 BMI Method: General Appearance: No Apparent Distress, WD/WN, Chronically ill HEENT: PERRL/EOMI, Normal ENT Inspection, Pharynx Normal Neck: Full Range of Motion, Normal Inspection, Non Tender, Supple, Carotid Bruit Respiratory: Chest Non Tender, No Accessory Muscle Use, No Respiratory Distre ss, Decreased Breath Sounds Cardiovascular: Regular Rate, Rhythm, No Edema, No Gallop, No JVD, No Murmur, Normal Peripheral Pulses Capillary Refill: Less Than 3 Seconds Gastrointestinal: non tender, soft, no organomegaly Extremity: Normal Capillary Refill, Normal Inspection, Normal Range of Motion, Non Tender, No Calf Tenderness, No Pedal Edema Neurologic/Psychiatric: Alert, Oriented x3, Normal Mood/Affect, paper roller II-XII Norm as Tested, Abnormal Gait, Depressed Affect, Motor Weakness (severe 3/5 all extremities) Skin: Normal Color, Warm/Dry Lymphatic: No Adenopathy Results Lab Laboratory Tests 10/04/20 05:55 10/05/20 06:20 Assessment/Plan Assessment/Plan Acute respiratory distress with hypoxia -Currently requiring Vapotherm at 100% -Dr. Perez talking with family. Pt is a DNR. PNA -Restart Abx Hx of COPD -Advair, and duoneb Pulmonary edema -Give 40mg of Lasix x 1 Afib - controlled -Currently on Coumadin Transfer pt to 4th floor pt is a DNR currently. Continue Vapotherm and continue to monitor. BRIDGETTE PÉREZ DO Oct 05, 2020 13:14
--- NOTE | 2020-10-05 13:30 | NUR ---
REPORT GIVEN TO ONESIMO DOBBINS AND TRANSFERRED TO ROOM 411 PER BED. TRANSFERRED ON 15 L PER MASK AND VAPOTHERM RESET UP IN 411. BELONGINGS SENT.
--- NOTE | 2020-10-06 11:44 | Therapy Team Discharge Summary ---
Therapy Discharge Summary Discharge Recommendations Date of Discharge Oct 05, 2020 at 15:25 Physical Therapy Patient came to rehab with critical illness myopathy. Upon evaluation patient needs min assist for rolling and mod assist for supine <-> sit, xu for transfers, dependent for WC mobility. Patient has been performing bed mobility and transfers, functional strengthening, WC mobility. 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 Now, patient performs bed mobility with min /mod assist, max assist for transfers. Patient was recently transferred to another floor in the hospital due to medical issues. He will be discharged from PT at this time. Occupational Therapy Decreased Activ Tolerance, Decreased UE Strength, Impaired Bed Mobility, Impaired Funct Balance, Impaired I ADL's, Impaired Self-Care Skills PT Fdc Goals Fdc Goals PT Fdc Goals Time Frame: Oct 19, 2020 Roll Left to Right (QC): 6 Sit to Lying (QC): 6 Lying-Sitting on Side/Bed(QC): 6 Sit to Stand (QC): 3 Chair/Krn-rs-Rgrep Xfer(QC): 3 Car Transfer (QC): 1 Does the Patient Walk: Yes Walk 10 feet (QC): 3 Walk 10ft-Uneven Surface(QC): 88 Walk 50ft with 2 Turns (QC): 88 Walk 150 ft (QC): 88 Wheel 50 feet with 2 turns (QC: 4 1 Step (curb) (QC): 88 4 Steps (QC): 88 12 Steps (QC): 88 Picking up an Object (QC): 88 OT Printing Supplies Sales Representative Goals Printing Supplies Sales Representative Goals Time Frame: Oct 21, 2020 Eating (QC): 6 Oral Hygiene (QC): 6 Shower/Bathe Self (QC): 4 Upper Body Dressing (QC): 5 Lower Body Dressing (QC): 4 On/Off Footwear (QC): 4 Toileting Hygiene (QC): 4 Toilet/Commode Transfer (QC): 3 1=Demonstrate adherence to instructed precautions during ADL tasks. 2=Patient will verbalize/demonstrate understanding of assistive devices/modifications for ADL. 3=Patient will improve strength/tolerance for activity to enable patient to perform ADL's. CLAYTON GARCIA PT Oct 06, 2020 11:44
--- NOTE | 2020-10-06 14:36 | Therapy Team Discharge Summary ---
Therapy Discharge Summary Discharge Recommendations Date of Discharge Oct 05, 2020 at 15:25 Occupational Therapy Pt admitted to ARU with critical illness myopathy . At [facility], he was in dependent with all ADLs. Upon evaluation, pt was independent with eating, required set up assist with oral care, total assist showering, min A upper body dressing, total assist lower body dressing, total assist footwear and total assist toilet hygiene. OT tx has focused on increasing BUE strength and functional endurance, w/c mobility, and increasing independence with ADLs and functional mobility. Pt has made little progress while on the rehab unit, and only meeting assisted goal of independent feeding. Pt now requires max A with sponge bath, and still requires total assist with lower body dressing, footwear and toileting. Pt transferred to another floor in the hospital due to increased medical complexity. D/C from OT at this time. Decreased Activ Tolerance, Decreased UE Strength, Impaired Bed Mobility, Impaired Funct Balance, Impaired I ADL's, Impaired Self-Care Skills PT Shelter Goals Shelter Goals PT Pit Clerk Goals Time Frame: Oct 19, 2020 Roll Left to Right (QC): 6 Sit to Lying (QC): 6 Lying-Sitting on Side/Bed(QC): 6 Sit to Stand (QC): 3 Chair/Rey-ww-Iiobx Xfer(QC): 3 Car Transfer (QC): 1 Does the Patient Walk: Yes Walk 10 feet (QC): 3 Walk 10ft-Uneven Surface(QC): 88 Walk 50ft with 2 Turns (QC): 88 Walk 150 ft (QC): 88 Wheel 50 feet with 2 turns (QC: 4 1 Step (curb) (QC): 88 4 Steps (QC): 88 12 Steps (QC): 88 Picking up an Object (QC): 88 OT Pit Clerk Goals Pit Clerk Goals Time Frame: Oct 21, 2020 Eating (QC): 6 (mete) Oral Hygiene (QC): 6 (not met) Shower/Bathe Self (QC): 4 (not met) Upper Body Dressing (QC): 5 (not met) Lower Body Dressing (QC): 4 (not met) On/Off Footwear (QC): 4 (not met) Toileting Hygiene (QC): 4 (not met) Toilet/Commode Transfer (QC): 3 (not met) 1=Demonstrate adherence to instructed precautions during ADL tasks. 2=Patient will verbalize/demonstrate understanding of assistive devices/modifications for ADL. 3=Patient will improve strength/tolerance for activity to enable patient to perform ADL's. ALEXUS PACHECO OT Oct 06, 2020 14:36
== END 2020-10-05 15:25 | disposition short-term general hospital (02) | DRG 91 ==
PROVIDERS: ADMIT Internal Medicine; ATTEND Internal Medicine
DX: G72.81 Critical illness myopathy (principal); J18.9 Pneumonia, unspecified organism; A41.9 Sepsis, unspecified organism; K29.71 Gastritis, unspecified, with bleeding; J96.91 Respiratory failure, unspecified with hypoxia; E87.2 Acidosis; J44.9 Chronic obstructive pulmonary disease, unspecified; I48.0 Paroxysmal atrial fibrillation; Z20.828 Contact with and (suspected) exposure to other viral communicable diseases; Z66 Do not resuscitate; E11.22 Type 2 diabetes mellitus with diabetic chronic kidney disease; B37.9 Candidiasis, unspecified; N18.30 Chronic kidney disease, stage 3 unspecified; I27.20 Pulmonary hypertension, unspecified; E87.70 Fluid overload, unspecified; K21.9 Gastro-esophageal reflux disease without esophagitis; E87.6 Hypokalemia; D64.9 Anemia, unspecified; Z79.4 Long term (current) use of insulin; Z87.891 Personal history of nicotine dependence; Z79.01 Long term (current) use of anticoagulants; Z86.711 Personal history of pulmonary embolism
CPT/HCPCS: 36415; 36569; 36600; 71045; 71046; 71275; 76937; 80053; 80202; 82274; 82805; 82962; 83540; 83605; 83880; 84145; 85007; 85025; 85027; 85610; 86850; 86900; 86901; 86920; 87040; 87081; 87635; 93005; 94640; 94760

== ENCOUNTER 2020-10-03 09:08 | Day surgery (SDC) | payer MEDICARE ==
[~2020-10-03 09:08] MED LIST: ACET-2650 PO; ACET600C PO; ALB0.5V INH; ALPR0.25 PO; AMIO200T6 PO; DEXT50DI2 IV; FLUT1AER IH; FLUT9.9S NS; FOLIC ACID PO; FURO10VI IV; INSU100V39 SQ; INSU100V6 SQ; IPRA3AMP31 IH; METH40VI2 IV; MULT-166 PO; NYST1000 PO; ONDA2VIA2 IV; PANT40TA2 PO; SALI473M2 MM; SILD20TA PO; UBID400C6 PO; WRF1T PO
[2020-10-03] MEDS ORDERED: proPOfol 200 MG/20 ML (DIPRIVAN) VIAL IV ONE (10:42)
[2020-10-03] MEDS ORDERED: LACTATED RINGERS 1,000 ML IV ONE (10:43)
[2020-10-03] MEDS ORDERED: HURRICAINE EXT TUBE (BENZOCAINE) ONE (10:45)
[2020-10-03] MEDS ORDERED: KETAMINE/NaCl 50 MG/5 ML SYRINGE (ED ONLY) ONE (10:52)
--- NOTE | 2020-10-03 11:08 | Progress Note-Post Operative ---
Post-Operative Progess Note Surgeon (s)/Forge Press Operator (s) Surgeon YANN DUNCAN DO Forge Press Operator: none Pre-Operative Diagnosis Anemia, Hemoccult + Post-Operative Diagnosis Gastritis Hiatal hernia Desc colon polyp poor prep Procedure & Operative Findings Date of Procedure 10/03/20 Procedure Performed/Findings EGD with bx Flex sig with snare polypectomy Anesthesia Type IV sedation by Anesthesia Estimated Blood Loss Estimated blood loss (mL): scant Specimens/Packing Specimens Removed antral bx GE jxn bx Descending colon polyp YANN DUNCAN DO Oct 03, 2020 11:08
[2020-10-03] MEDS ORDERED: LACTATED RINGERS 1,000 ML IV STA (11:49)
[2020-10-03] MEDS ORDERED: HURRICAINE EXT TUBE (BENZOCAINE) XX PRN (12:00)
--- NOTE | 2020-10-03 12:03 | Anesthesia-General Post-Op ---
MAC Patient Condition Mental Status/LOC: Same as Preop Cardiovascular: Satisfactory Nausea/Vomiting: Absent Respiratory: Satisfactory Pain: Controlled Complications: Absent Post Op Complications Complications None Follow Up Care/Instructions Patient Instructions None needed. Anesthesiology Discharge Order Discharge Order Patient is doing well, no complaints, stable vital signs, no apparent adverse anesthesia problems. CARMEN CLARK DO Oct 03, 2020 12:03
--- NOTE | 2020-10-04 15:41 | OPERATIVE REPORT ---
DATE OF SERVICE: 10/03/2020 PREOPERATIVE DIAGNOSES: Anemia and Hemoccult positive. POSTOPERATIVE DIAGNOSES: Gastritis, hiatal hernia, poor prep and descending colon polyp as well as internal hemorrhoids. PROCEDURES: 1. EGD with biopsy. 2. Flex sigmoidoscopy with snare polypectomy. SURGEON: Jose Smith DO CREDIT OFFICE MANAGER: None. ANESTHESIA: IV sedation by the anesthesiologist. SPECIMEN: Biopsy from the antrum, biopsy of the GE junction as well as a polyp removed from the descending colon. BLOOD LOSS: Scant. FLUIDS: Per anesthesia. POSTOPERATIVE CONDITION: Stable. INDICATION FOR PROCEDURE: The patient is an 80-year-old male, who has had long protracted course of pneumonia. He has had weakness in the legs, recently found to be severely anemic and required blood transfusion. Also found to be Hemoccult positive, needed a workup. FINDINGS: The patient had a small hiatal hernia, some gastritis, nothing obvious in the stomach. Unfortunately, he had a lot of retained fecal material, but did see a polyp in the descending colon just really could not get past the splenic flexure. PROCEDURE NOTE: After informed consent was obtained, the patient was brought to the endoscopy suite, placed in bed in left lateral decubitus position. He was administered IV sedation by the anesthesiologist, who monitored his vitals the entire time, heart rate, blood pressure and pulse ox and the scope was inserted. We started with the EGD, placing scope down the mouth through the esophagus into the stomach, noted some inflammation, pushed into the duodenum. Duodenum looked fine, took a picture. Pulled back, did a biopsy of the antrum. Retroflexed the scope, saw a small hiatal hernia, did a biopsy of the GE junction, then suctioned all the air out of stomach, pulled the scope up the esophagus, did not see anything else and then pulled the scope out. The patient changed gloves, changed scopes and started the colonoscopy. Unfortunately, the patient had a lot of formed retained fecal material. Pushed up, tried to get past this, but it continued up all the way into the transverse colon, could not get past the splenic flexure. So at this point, slowly withdrew the scope, saw a polyp in the descending colon, took a picture and then did a snare polypectomy, took a picture of the retained fecal material, unable to get to visualize anything and has been pulled the scope out, noted some internal hemorrhoids and try to take a picture of this, removed the scope. The patient tolerated the procedure, recovered in endoscopy suite. Job ID: [id number] DocumentID: [id number] Dictated Date: 10/04/2020 10:15:28 Door Closer Date: 10/04/2020 15:41:00 Dictated By: JOSE SMITH DO
== END 2020-10-03 11:15 | disposition still patient (30) ==
LOC: ENDO 09:08
PROVIDERS: ATTEND Surgery
DX: K29.50 Unspecified chronic gastritis without bleeding (principal); K44.9 Diaphragmatic hernia without obstruction or gangrene; D64.9 Anemia, unspecified; K63.5 Polyp of colon; K64.8 Other hemorrhoids; I48.91 Unspecified atrial fibrillation; J44.9 Chronic obstructive pulmonary disease, unspecified; K21.9 Gastro-esophageal reflux disease without esophagitis; K21.00 Gastro-esophageal reflux disease with esophagitis, without bleeding; N18.9 Chronic kidney disease, unspecified; E11.22 Type 2 diabetes mellitus with diabetic chronic kidney disease; J18.9 Pneumonia, unspecified organism; Z79.899 Other long term (current) drug therapy; Z79.51 Long term (current) use of inhaled steroids; Z79.4 Long term (current) use of insulin; Z82.3 Family history of stroke
CPT/HCPCS: 88305

== ENCOUNTER 2020-10-05 13:01 | Inpatient (IN) | payer MEDICARE ==
[~2020-10-05] VITALS: Ht 188 cm; Wt 86.2 kg
[~2020-10-05 13:01] MED LIST changes: +ATOR40TA70 PO; +FURO40TA4 PO; +POTA10TA PO
[2020-10-05] MEDS ORDERED: VANCOMYCIN INJECTION 1,000 MG in NS (IVPB) 250 ML IV SCH (13:15)
--- NOTE | 2020-10-05 13:30 | NUR ---
PT TO ROOM 411 FROM [facility], REPORT RECEIVED FROM MU MENEZES.
[2020-10-05 14:14] LABS: BASOPHILS % (AUTO) 0 % (0-10); EOSINOPHILS % (AUTO) 0 % (0-10); HEMATOCRIT 33 % (40-54); HEMOGLOBIN 10.1 g/dL (13.3-17.7); LYMPHOCYTES # (AUTO) 0.2 10^3/uL (1.0-4.0); LYMPHOCYTES % (AUTO) 1 % (12-44); MEAN CORPUSCULAR HEMOGLOBIN 30 pg (25-34); MEAN CORPUSCULAR HGB CONC 31 g/dL (32-36); MEAN CORPUSCULAR VOLUME 97 fL (80-99); MEAN PLATELET VOLUME 10.5 fL (9.0-12.2); MONOCYTES # (AUTO) 0.5 10^3/uL (0.0-1.0); MONOCYTES % (AUTO) 3 % (0-12); NEUTROPHILS # (AUTO) 17.3 10^3/uL (1.8-7.8); NEUTROPHILS % (AUTO) 95 % (42-75); PLATELET COUNT 139 10^3/uL (130-400); WHITE BLOOD COUNT 18.2 10^3/uL (4.3-11.0)
[2020-10-05 14:26] LABS: ALBUMIN 2.5 GM/DL (3.2-4.5); CHLORIDE 105 MMOL/L (98-107); POTASSIUM 3.8 MMOL/L (3.6-5.0); SODIUM 139 MMOL/L (135-145)
[2020-10-05 14:27] LABS: CALCIUM 7.5 MG/DL (8.5-10.1)
[2020-10-05 14:28] LABS: GLUCOSE 261 MG/DL (70-105)
[2020-10-05 14:30] LABS: BILIRUBIN,TOTAL 0.6 MG/DL (0.1-1.0); CARBON DIOXIDE 25 MMOL/L (21-32)
[2020-10-05 14:31] LABS: LYMPHOCYTES % (MANUAL) 1 %; MONOCYTES % (MANUAL) 1 %; NEUTROPHILS % (MANUAL) 98 %; RBC MORPH NORMAL
[2020-10-05 14:32] LABS: ALKALINE PHOSPHATASE 100 U/L (40-136); CREATININE SERUM 0.85 MG/DL (0.60-1.30); GFR ESTIMATED > 60
[2020-10-05 14:33] LABS: BUN/CREATININE RATIO 33
[2020-10-05 14:35] LABS: ALANINE AMINOTRANSFERASE 73 U/L (0-55)
[2020-10-05] MEDS ORDERED: RT-ALBUTEROL/IPRATROPIUM 3 ML (DUONEB) VIAL IH SCH ×2 (15:45→19:00)
[2020-10-05 15:48] VITALS: BP 132/60
[2020-10-05] MEDS: MEROPENEM 500 MG in WATER (STERILE) FOR INJECTION 10 ML IV SCH ×2 (15:51→21:40)
--- NOTE | 2020-10-05 15:52 | NUR ---
The patient's primary care nurse visited with this sw regarding code status. The patient's daughter decided she wanted the patient to be a DNR. According to the chart she is the patient's DPOA. There are no scanned in documents to verify this or notes stating that patient is unable to make decisions.However, the patient states he wants to be a full code. CM/SS discussed with the nurse to assess orientation and if he is oriented x4 he is able to make his decisions. The nurse reports she will assess and inform the physician. CM/SS will continue to follow.
--- NOTE | 2020-10-05 15:57 | Progress Note - Surgery ---
Subjective Time Seen by a Provider: 14:31 Subjective/Events-last exam Pt seen and examined, moved up to 4th floor for worsening respiratory symptoms. Nurse stated he was still having brown BM's and his INR is actually higher than it was yesterday. Review of Systems General: Fatigue, Malaise Pulmonary: Dyspnea, Cough Cardiovascular: No: Chest Pain Gastrointestinal: No: Nausea, Vomiting, Abdominal Pain Focused Exam Lactate Level 10/05/20 14:00: Lactic Acid Level 0.91 Lactic Acid Level Laboratory Tests Test 10/05/20 14:00 Lactic Acid Level 0.91 MMOL/L (0.50-2.00) Objective Exam Vital Signs Date Time Temp Pulse Resp B/P (MAP) Pulse Ox O2 Delivery O2 Flow Rate FiO2 10/05/20 15:35 93 Vapotherm 40.00 100 Capillary Refill : General Appearance: Moderate Distress Respiratory: Accessory Muscle Use, Decreased Breath Sounds, Respiratory Distress Cardiovascular: Tachycardia Gastrointestinal: non tender, soft, no organomegaly Extremity: Pedal Edema Results Lab Laboratory Tests 10/05/20 14:00: Lactic Acid Level 0.91 10/05/20 14:02: White Blood Count 18.2H, Red Blood Count 3.42L, Hemoglobin 10.1L, Hematocrit 33L , Mean Corpuscular Volume 97, Mean Corpuscular Hemoglobin 30, Mean Corpuscular Hemoglobin Concent 31L, Red Cell Distribution Width 18.2H, Platelet Count 139, Mean Platelet Volume 10.5, Immature Granulocyte % (Auto) 1, Neutrophils (%) (Auto) 95H, Lymphocytes (%) (Auto) 1L, Monocytes (%) (Auto) 3, Eosinophils (%) (Auto) 0, Basophils (%) (Auto) 0, Neutrophils # (Auto) 17.3H, Lymphocytes # (Auto) 0.2L, Monocytes # (Auto) 0.5, Eosinophils # (Auto) 0.0, Basophils # (Auto) 0.0, Immature Granulocyte # (Auto) 0.2H, Neutrophils % (Manual) 98, Lymphocytes % (Manual) 1, Monocytes % (Manual) 1, Blood Morphology Comment NORMAL, Sodium Level 139, Potassium Level 3.8, Chloride Level 105, Carbon Dioxide Level 25, Anion Gap 9, Blood Urea Nitrogen 28H, Creatinine 0.85, Estimat Glomerular Filtration Rate > 60, BUN/Creatinine Ratio 33, Glucose Level 261H, Calcium Level 7.5L, Corrected Calcium 8.7, Total Bilirubin 0.6, Aspartate Amino Transf (AST/SGOT) 33, Alanine Aminotransferase (ALT/SGPT) 73H, Alkaline Phosphatase 100, Total Protein 5.0L, Albumin 2.5L, Procalcitonin 0.22H Assessment/Plan Assessment/Plan Assessment/Plan Anemia Hemoccult + Respiratory Failure At this point I think it is best to take care of pt's respiratory problems and a colonoscopy can be completed as an outpt. Clinical Quality Measures DVT/VTE Risk/Contraindication: Risk Factor Score Per Nursin RFS Level Per Nursing on Admit: 4+=Very High Contraindications-Pharm: Other *list below* Other: severe anemia YANN DUNCAN DO Oct 05, 2020 15:57
[2020-10-05 16:00] VITALS: BP 130/60
[2020-10-05] MEDS ORDERED: VANCOMYCIN 2000 MG/NS 500 ML IVPB IV NR ×2 (16:00)
--- NOTE | 2020-10-05 16:12 | NUR ---
PT DAUGHTER CALLED AND NOTIFIED THIS RN THAT SHE DID NOT REQUEST HER FATHER TO BE A DNR. DAUGHTER STATED IT WAS UP TO HER FATHER WHAT HE WANTED TO DO. PT STATED HE WANTS TO BE A FULL CODE. DR JONES NOTIFIED AND ORDERS WERE CHANGED IN THE COMPUTER. PT DAUGHTER WAS NOTIFIED OF THE CHANGES.
[2020-10-05] MEDS ORDERED: ONDANSETRON 4 MG (ZOFRAN) ORAL DISSOLVE TAB PO PRN ×2 (16:45)
[2020-10-05] MEDS ORDERED: DEXTROSE 50% 50 ML (IMS) SYR IV PRN ×2 (16:45)
[2020-10-05] MEDS ORDERED: DOCUSATE SODIUM 100 MG (COLACE) CAP PO PRN ×2 (16:45)
[2020-10-05] MEDS ORDERED: ONDANSETRON 4 MG/2 ML (SDV) Z0FRAN IV PRN ×2 (16:45)
[2020-10-05] MEDS ORDERED: CALCIUM CARBONATE 500 MG (TUMS) TAB.CHEW PO PRN ×2 (16:45)
[2020-10-05] MEDS ORDERED: LOPERAMIDE 2 MG (IMODIUM) TABLET PO PRN ×2 (16:45)
[2020-10-05] MEDS ORDERED: guaiFENesin/CODEINE (ROBITUSSIN AC) 10ML UDC PO PRN ×2 (16:45)
[2020-10-05] MEDS ORDERED: LACTULOSE SYRUP 10GM/15ML (ENULOSE) 30ML UDC PO PRN ×2 (16:45)
[2020-10-05] MEDS ORDERED: FLEET ENEMA ADULT 1 EA BTL PR PRN ×2 (16:45)
[2020-10-05] MEDS ORDERED: ACETAMINOPHEN 325 MG TABLET PO PRN ×2 (16:45)
[2020-10-05] MEDS ORDERED: BISACODYL 10 MG SUPP (DULCOLAX) PR PRN ×2 (16:45)
[2020-10-05] MEDS ORDERED: diphenhydrAMINE 25 MG TAB (BENADRYL) PO PRN ×2 (16:45)
[2020-10-05] MEDS ORDERED: MELATONIN 3 MG TABLET PO PRN ×2 (16:45)
[2020-10-05] MEDS ORDERED: FUROSEMIDE 40 MG/4 ML INJ (LASIX) IV SCH (17:00)
[2020-10-05] MEDS ORDERED: NYSTATIN ORAL SUSP 5 ML UDC PO SCH (17:00)
--- NOTE | 2020-10-05 17:20 | NUR ---
REPORT GIVEN TO ABDIAS ANDREWS RN
--- NOTE | 2020-10-05 17:31 | NUR ---
PTD VANCOMYCIN (PATIENT PREVIOUSLY ON VANCOMYCIN THERAPY, LAST DOSE 10/02). LABS: 98.7 KG, SCr 0.85 (USED SCr 1 IN CALCULATION), CrCl 68.5, BMI 27.9. VANCOMYCIN LOADING DOSE 20MG/KG X 98.7 KG ~ 2 GRAMS 10/05 @ 1600. VANCOMYCIN MAINT DOSE 15MG/KG X 98.7 KG ~ 1250 MG Q12H. VANCOMYCIN TROUGH DUE 10/06 @ 1500. IF TROUGH >20, HOLD DOSE & NOTIFY PHARMACY FOR ADJUSTMENTS.
--- NOTE | 2020-10-05 17:37 | NUR ---
PT DAUGHTER ALLA UPDATED ON PT GOING TO STEP DOWN PER DR. TOSCANO. ALL QUESTIONS/CONCERNS ANSWERED AT THIS TIME.
[2020-10-05] MEDS: NYSTATIN ORAL SUSP 5 ML UDC PO SCH ×2 (17:40→20:45)
[2020-10-05] MEDS: FUROSEMIDE 40 MG/4 ML INJ (LASIX) IV SCH (17:40)
[2020-10-05] MEDS: warFARin 1 MG (COUMADIN) TAB PO SCH (17:40)
[2020-10-05] MEDS ORDERED: warFARin 1 MG (COUMADIN) TAB PO SCH (18:00)
--- NOTE | 2020-10-05 18:18 | NUR ---
PT TRANSFERRED TO STEPDOWN VIA PT BED. ALL BELONGINGS WERE SENT WITH PT.
--- NOTE | 2020-10-05 18:30 | NUR ---
PT TRANSFERRED FROM FOURTH FLOOR. PT BED CHANGED AND RESTING COMFORTABLY IN THE BED. PT HAS CALL LIGHT AND DENIES ANY NEEDS AT THIS TIME. WILL CONTINUE TO MONITOR.
[2020-10-05 20:00] VITALS: BP 146/69
[2020-10-05] MEDS: PANTOPRAZOLE 40 MG (PROTONIX) TAB PO SCH (20:45)
[2020-10-05] MEDS: polyethylene glycoL POWDER 17 GM (MIRALAX) PACK PO SCH (20:52)
[2020-10-05] MEDS: NYSTATIN CREAM (MYCOSTATIN) 30 GM TUBE TP SCH (20:52)
[2020-10-05] MEDS: SALIVA STIMULANT MOUTH SPRAY (BIOTENE) 1.5 OZ MM SCH (20:52)
[2020-10-05] MEDS: FLUTICASONE NASAL SPRAY (FLONASE) 16 GM BTL NS SCH (20:53)
[2020-10-05] MEDS: SENNA W/DOCUSATE (SENOKOT S) TABLET PO SCH (20:53)
[2020-10-05] MEDS ORDERED: inSUlin ASPART (NovoLOG) 1 UNIT/0.01 ML (CHARGE PER UNIT) SC SCH (21:00)
[2020-10-05] MEDS ORDERED: SILDENAFIL 20 MG (REVATIO) TAB NON-FORMULARY PO SCH ×2 (21:00)
[2020-10-05] MEDS ORDERED: SENNA W/DOCUSATE (SENOKOT S) TABLET PO SCH (21:00)
[2020-10-05] MEDS ORDERED: AMIODARONE 200 MG (CORDARONE) TAB PO SCH ×2 (21:00)
[2020-10-05] MEDS ORDERED: SALIVA STIMULANT MOUTH SPRAY (BIOTENE) 1.5 OZ MM SCH (21:00)
[2020-10-05] MEDS ORDERED: NYSTATIN CREAM (MYCOSTATIN) 30 GM TUBE TP SCH (21:00)
[2020-10-05] MEDS ORDERED: MICONAZOLE 2% POWDER (DESENEX AF) 90 GM TOP SCH ×2 (21:00)
[2020-10-05] MEDS ORDERED: PANTOPRAZOLE 40 MG (PROTONIX) TAB PO SCH (21:00)
[2020-10-05] MEDS ORDERED: FLUTICASONE NASAL SPRAY (FLONASE) 16 GM BTL NS SCH (21:00)
[2020-10-05] MEDS ORDERED: polyethylene glycoL POWDER 17 GM (MIRALAX) PACK PO SCH (21:00)
[2020-10-05] MEDS ORDERED: aCETylcysteine 20% (MUCOMYST) 30ML SOLN VIAL PO SCH ×2 (21:00)
[2020-10-05] MEDS ORDERED: ALPRAZolam 0.25 MG (XANAX) TAB PO SCH ×2 (21:00)
[2020-10-05] MEDS ORDERED: WATER (STERILE) FOR INJECTION 10 ML ONE (21:30)
[2020-10-05] MEDS ORDERED: MEROPENEM 500 MG VIAL (MERREM) IV ONE (21:30)
[2020-10-05] MEDS: inSUlin ASPART (NovoLOG) 1 UNIT/0.01 ML (CHARGE PER UNIT) SC SCH (21:40)
[2020-10-05] MEDS: RT-ALBUTEROL/IPRATROPIUM 3 ML (DUONEB) VIAL IH SCH (23:00)
[2020-10-06] VITALS (7 sets, daily range): BP systolic 124–148; BP diastolic 60–76
[2020-10-06] MEDS ORDERED: MEROPENEM 500 MG VIAL (MERREM) IV ONE ×4 (03:14→20:52)
[2020-10-06] MEDS ORDERED: WATER (STERILE) FOR INJECTION 10 ML ONE ×4 (03:15→20:52)
[2020-10-06] MEDS: MEROPENEM 500 MG in WATER (STERILE) FOR INJECTION 10 ML IV SCH ×4 (03:45→21:20)
[2020-10-06] MEDS: VANCOMYCIN 1250 MG/NS 250 ML IVPB IV SCH ×4 (03:45→15:44)
[2020-10-06 04:33] LABS: BASOPHILS % (AUTO) 0 % (0-10); EOSINOPHILS # (AUTO) 0.1 10^3/uL (0.0-0.3); EOSINOPHILS % (AUTO) 1 % (0-10); HEMATOCRIT 28 % (40-54); HEMOGLOBIN 8.7 g/dL (13.3-17.7); LYMPHOCYTES # (AUTO) 0.6 10^3/uL (1.0-4.0); LYMPHOCYTES % (AUTO) 5 % (12-44); MEAN CORPUSCULAR HEMOGLOBIN 30 pg (25-34); MEAN CORPUSCULAR HGB CONC 31 g/dL (32-36); MEAN CORPUSCULAR VOLUME 97 fL (80-99); MEAN PLATELET VOLUME 10.4 fL (9.0-12.2); MONOCYTES # (AUTO) 0.8 10^3/uL (0.0-1.0); MONOCYTES % (AUTO) 6 % (0-12); NEUTROPHILS # (AUTO) 11.3 10^3/uL (1.8-7.8); NEUTROPHILS % (AUTO) 88 % (42-75); PLATELET COUNT 135 10^3/uL (130-400); WHITE BLOOD COUNT 12.9 10^3/uL (4.3-11.0)
[2020-10-06 04:37] LABS: INR 3.2 (0.8-1.4); PROTHROMBIN TIME PATIENT 32.8 SEC (12.2-14.7)
[2020-10-06 04:59] LABS: ALBUMIN 2.1 GM/DL (3.2-4.5)
[2020-10-06 05:00] LABS: CHLORIDE 107 MMOL/L (98-107); SODIUM 140 MMOL/L (135-145)
[2020-10-06 05:01] LABS: CALCIUM 7.1 MG/DL (8.5-10.1)
[2020-10-06 05:02] LABS: GLUCOSE 125 MG/DL (70-105); TOTAL PROTEIN 4.3 GM/DL (6.4-8.2)
[2020-10-06 05:03] LABS: CARBON DIOXIDE 27 MMOL/L (21-32)
[2020-10-06] MEDS: inSUlin ASPART (NovoLOG) 1 UNIT/0.01 ML (CHARGE PER UNIT) SC SCH ×4 (05:03→21:20)
[2020-10-06 05:04] LABS: BILIRUBIN,TOTAL 0.4 MG/DL (0.1-1.0)
[2020-10-06 05:05] LABS: ALKALINE PHOSPHATASE 82 U/L (40-136)
[2020-10-06 05:06] LABS: CREATININE SERUM 1.07 MG/DL (0.60-1.30); GFR ESTIMATED > 60
[2020-10-06 05:07] LABS: BUN/CREATININE RATIO 23
[2020-10-06 05:08] LABS: ALANINE AMINOTRANSFERASE 58 U/L (0-55)
--- NOTE | 2020-10-06 05:31 | History & Physical ---
History of Present Illness HPI/Chief Complaint CC: Dyspnea HPI: This is an 80yoWM who was transferred from [facility] to 4th floor then to [facility] due to revoking DNR status from [facility] who is currently on broad spectrum abx and on max Vapotherm at 40 liters and 100% Patient currently asking me what his chances of recovery is and after a heartfelt conversation I told him low probability of recovery. Palliative care nurse consulted. 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 He acquired B/L pneumonia, placed on Meropenem and Vancomycin. Dr. Gamble was consulted. Oxygen supplementation was maintained and close monitoring with IV Lasix and IV steroids. He had a drop in Hgb requiring transfusion. Dr. Smith was consulted. EGD and colonoscopy were planned EGD revealed no source of bleeding but colonoscopy was not a good prep so it was unable to be done and attempted again today and the decision was made because of his oxygen requirement that he would be unable to proceed on with the colonoscopy considering his advanced and rapid progression with ABG hypoxemia 49 with normal pH he was transferred up to 4th floor. He remains a DNR as he had placed at [facility]. I did talk to Vanessa his daughter in depth for the second time today regarding his status that was ra pidly deteriorating. Dr. Gamble saw him in a consultation and agreed with the plan but his prognosis remained very guarded and she had been reporting two times he was in poor prognosis before but he has little reserve and significant hypoxemia requiring Vapotherm. The prognosis is very poor. Source: patient, RN/MD Exam Limitations: clinical condition Date Seen 10/06/20 Time Seen by a Provider: 10:30 Attending Physician Marissa Perez DO PCP No,Local Physician Referring Physician Date of Admission Oct 05, 2020 at 13:27 Home Medications & Allergies Home Medications Reviewed patient Home Medication Reconciliation performed by pharmacy medication reconciliations warehousing technician and/or nursing. Patients Allergies have been reviewed. Allergies Allergies Coded Allergies No Allergy Information Available ([id number]/2/20) Past Rsbipwn-Djylhu-Cucrtz Hx Past Med/Social Hx: Reviewed Nursing Past Med/Soc Hx, Reviewed and Corrections made Patient Social History Marrital Status: single Employed/Student: retired Alcohol Beverage of Choice: Beer, [place] Smoking Status: Former Smoker Former Smoker, Quit: Oct 29, 1979 Type Used: Cigarettes Recent Hopitalizations: No Immunizations Up To Date Pediatric: Yes Date of Pneumonia Vaccine: Jul 27, 2020 Date of Influenza Vaccine: Jul 27, 2020 Seasonal Allergies Seasonal Allergies: No Past Medical History Surgeries: Renal Respiratory: COPD, Pneumonia Currently Using CPAP: No Currently Using BIPAP: No Cardiac: Atrial Fibrillation, Chronic Edema/Swelling Genitourinary: Renal Failure Gastrointestinal: Gastroesophageal Reflux Endocrine: Diabetes, Insulin dep Loss of Vision: Denies Hearing Impairment: Hard of Hearing Skin/Integumentary: Eczema History of Blood Disorders: No Adverse Reaction to Blood Wang: No Family History Stroke, Other Conditions/Hx Review of Systems Constitutional: see HPI Respiratory: cough, dyspnea on exertion, short of breath Psychiatric/Neurological: Anxiety, Depressed Physical Exam Physical Exam Vital Signs Vital Signs - First Documented 10/05/20 10/05/20 14:30 15:48 Temp 35.6 Pulse 76 Resp 20 B/P (MAP) 132/60 Pulse Ox 94 O2 Delivery Vapotherm O2 Flow Rate 40.00 FiO2 100 Capillary Refill : Less Than 3 Seconds Height, Weight, BMI Height: '" Weight: lbs. oz. kg; 27.92 BMI Method: General Appearance: WD/WN, Chronically ill, Moderate Distress, Obese Eyes: Bilateral Eye Normal Inspection, Bilateral Eye PERRL HEENT: PERRL/EOMI, Normal ENT Inspection, Pharynx Normal Neck: Full Range of Motion, Normal Inspection, Non Tender, Supple, Carotid Bruit Respiratory: Chest Non Tender, No Respiratory Distress, Accessory Muscle Use, Decreased Breath Sounds, Respiratory Distress Cardiovascular: Tachycardia Gastrointestinal: Normal Bowel Sounds, No Organomegaly, No Pulsatile Mass, Non Tender, Soft Back: Normal Inspection, No CVA Tenderness, No Vertebral Tenderness Extremity: Pedal Edema Neurologic/Psychiatric: Alert, Oriented x3, No Motor/Sensory Deficits, Normal Mood/Affect Skin: Normal Color, Warm/Dry Lymphatic: No Adenopathy Results Results/Procedures Labs Laboratory Tests 10/05/20 14:02 10/06/20 04:20 10/07/20 03:50 Patient resulted labs reviewed. Assessment/Plan Admission Diagnosis Assessment: Respiratory failure acute on chronic PNA HAP HTN AF Severe myopathy Plan: IV abx Supportive care Needs DNR Admission Status: Inpatient Order (span 2 midnights) Reason for Inpatient Admission: HAP Diagnosis/Problems Diagnosis/Problems (1) Respiratory insufficiency (2) Warfarin anticoagulation (3) Volume overload (4) Hypoxemia (5) Diabetes mellitus (6) Thrush (7) Atrial fibrillation (8) COPD (chronic obstructive pulmonary disease) (9) Myopathy Clinical Quality Measures DVT/VTE Risk/Contraindication: Risk Factor Score Per Nursin RFS Level Per Nursing on Admit: 4+=Very High Contraindications-Pharm: Other *list below* Other: MARISSA FORREST DO Oct 06, 2020 05:31
[2020-10-06 06:38] LABS: ABG BASE EXCESS 4.1 MMOL/L (-2.5-2.5); ABG OXYGEN SATURATION 96 % (94-100); ABG PCO2 45 MMHG (35-45); ABG PH 7.42 (7.37-7.43); ABG PO2 74 MMHG (79-93)
[2020-10-06 06:45] LABS: ALLENS TEST POS; INSPIRED O2 40L; PATIENT TEMP 36.4; VENTILATOR NO
[2020-10-06] MEDS: FUROSEMIDE 40 MG/4 ML INJ (LASIX) IV SCH ×2 (07:04→17:14)
[2020-10-06] MEDS: RT-ALBUTEROL/IPRATROPIUM 3 ML (DUONEB) VIAL IH SCH ×4 (07:36→18:28)
--- NOTE | 2020-10-06 07:49 | Diagnostic Imaging Report ---
INDICATION: Pneumonia. Comparison is made with prior examination from 10/05/2020. FINDINGS: There is essentially unchanged diffuse bilateral airspace disease. There is cardiomegaly. Underlying congestive failure cannot be excluded. There may be a left pleural effusion. There is no pneumothorax. The mediastinum is unremarkable. IMPRESSION: Unchanged diffuse bilateral airspace disease with likely small left pleural effusion. Some underlying central pulmonary venous congestion cannot be excluded. Dictated by: Dictated on workstation # [id number]
[2020-10-06] MEDS ORDERED: MULTIVIT W/MINERALS TAB (THERAGRAN M) PO SCH (08:00)
[2020-10-06] MEDS: polyethylene glycoL POWDER 17 GM (MIRALAX) PACK PO SCH ×2 (08:21→19:50)
[2020-10-06] MEDS: SENNA W/DOCUSATE (SENOKOT S) TABLET PO SCH ×2 (08:21→19:51)
[2020-10-06] MEDS ORDERED: methylPREDNISolone 40 MG/ML (Solu-MEDROL) VIAL IV SCH ×2 (09:00)
[2020-10-06] MEDS ORDERED: FOLIC ACID 1 MG TAB PO SCH (09:00)
--- NOTE | 2020-10-06 09:08 | Cardiology Progress Note ---
Subjective Date Seen by Provider: Oct 06, 2020 Time Seen by Provider: 09:05 Subjective/Events-last exam Patient in bed, complaining of worsening dyspnea. Denies any chest pain Review of Systems General: No Chills, No Night Sweats; Fatigue, Malaise; No Appetite, No Other HEENT: No Head Aches, No Visual Changes, No Eye Pain, No Ear Pain, No Dysphasia, No Sinus Congestion, No Post Nasal Drip, No Sore Throat, No Other Pulmonary: Dyspnea; No Cough, No Pleuritic Chest Pain, No Other Cardiovascular: No: Chest Pain, Palpitations, Orthopnea, Paroxysmal Noc. Dyspnea, Edema, Lt Headedness, Other Focused Exam Lactate Level 10/05/20 14:00: Lactic Acid Level 0.91 Objective-Cardiology Exam Last Set of Vital Signs Vital Signs 10/06/20 10/06/20 10/06/20 03:43 07:36 08:00 Temp 36.4 Pulse 90 Resp 22 B/P (MAP) 141/74 (96) Pulse Ox 92 O2 Delivery Vapotherm O2 Flow Rate 40.00 100.00 FiO2 100 Capillary Refill : Less Than 3 Seconds I&O Intake and Output 10/06/20 00:00 Intake Total 100 ml Balance 100 ml Intake Oral 100 ml # Voids 4 Daily Weight Change No No General: Alert, Oriented X3, Cooperative HEENT: Atraumatic, PERRLA Neck: Supple, No JVD, No Thyromegaly Lungs: Other (bilat rhonchi) Heart: Regular Rate, Normal S1, Normal S2 Abdomen: Normal Bowel Sounds, Soft Extremities: No Edema Skin: No Rashes, No Significant Lesion Neuro: Cranial Nerves 3-12 NL Psych/Mental Status: Mental Status NL Results Lab Laboratory Tests 10/05/20 14:02 10/06/20 04:20 A/P-Cardiology Admission Diagnosis Pneumonia Anemia PAF DM Assessment/Plan Pneumonia, having worsening dyspnea, management per Dr Perez and Pulrosemarie kerr Anemia of undetermined etiology - underwent EGD showing mild gastritis. PAF, currently sinus rhythm, OAC with warfarin, INR 3.2, continue to monitor. Hypokalemia, replaced and improved, continue to monitor. EKG of 09-29-2020 showed RBBB of unknown length of time Echocardiogram of Sep 28, 2020 showed LVEF 55-65%. 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 Perez Patient was seen and evaluated with Anny, examination performed, management plan was discussed, agree with the current scribed note, I made few changes to the note using Italic font Patient was transferred to our except down for worsening shortness of breath and hypoxemia Currently on Vapotherm, continue management with Dr. Gamble Hypokalemia, replace and monitor Patient has paroxysmal atrial fibrillation, currently in sinus rhythm. Continue to monitor heart rate. Clinical Quality Measures DVT/VTE Risk/Contraindication: Risk Factor Score Per Nursin RFS Level Per Nursing on Admit: 4+=Very High Contraindications-Pharm: Other *list below* Other: ANNY ANDERSON Oct 06, 2020 09:08 ANIKA SHEPHERD MD Oct 06, 2020 09:17
[2020-10-06] MEDS: PANTOPRAZOLE 40 MG (PROTONIX) TAB PO SCH ×2 (10:03→21:19)
[2020-10-06] MEDS: MULTIVIT W/MINERALS TAB (THERAGRAN M) PO SCH (10:03)
[2020-10-06] MEDS: FOLIC ACID 1 MG TAB PO SCH (10:03)
[2020-10-06] MEDS: FLUTICASONE NASAL SPRAY (FLONASE) 16 GM BTL NS SCH ×2 (10:04→21:19)
[2020-10-06] MEDS: SALIVA STIMULANT MOUTH SPRAY (BIOTENE) 1.5 OZ MM SCH ×3 (10:04→21:18)
[2020-10-06] MEDS: NYSTATIN CREAM (MYCOSTATIN) 30 GM TUBE TP SCH ×3 (10:04→21:20)
[2020-10-06] MEDS: NYSTATIN ORAL SUSP 5 ML UDC PO SCH ×4 (10:05→21:19)
--- NOTE | 2020-10-06 14:01 | NUR ---
PALLIATIVE CARE RN in to see patient at the request of Dr. Perez. We had a long discussion regarding Goals Of Care and options moving forward. He then wanted to call his daughter Vanessa and talk to her so we did this on speaker phone. I again went through the POC options including continued aggressive care, attempt to wean down from Vapotherm to a level of oxygen that he is able to discharge on, or CCMO here with family allowed to visit per policy. No decision is made at this time as they would like to try to arrange a SKYPE call with daughter and son to discuss. He will need assist in setting this up on his computer which is in the room at this time. Daughter would like to know if he has another pleural effusion like he has had int he past.
--- NOTE | 2020-10-06 14:34 | Pulmonary Consultation ---
History of Present Illness History of Present Illness Date Seen by Provider: Oct 06, 2020 Time Seen by Provider: 14:29 Date of Admission Allergies and Home Medications Allergies Coded Allergies: No Allergy Information Available (Unverified , 09/28/20) Home Medications Acetaminophen 650 Mg Tablet.er, 650 MG PO Q6H PRN for PAIN-MILD (1-4) OR TEMPATURE, (Reported) Amiodarone HCl 200 Mg Tablet, 200 MG PO BID, (Reported) LAST FILLED 07-27-2020 #60/30 DAY SUPPLY Atorvastatin Calcium 40 Mg Tablet, 40 MG PO HS, (Reported) Furosemide 40 Mg Tablet, 40 MG PO DAILY, (Reported) Multivitamin with Minerals 1 Each Tablet, 1 EACH PO DAILY, (Reported) Potassium Chloride 10 Meq Tablet.er, 10 MEQ PO DAILY, (Reported) Warfarin Sodium 1 Mg Tablet, 1 MG PO 1700, (Reported) Past Tfqdfye-Wuneeh-Ouojmc Hx Patient Social History Alcohol Beverage of Choice: Beer, [place] Type Used: Cigarettes Former Smoker, Quit: Oct 29, 1979 Recent Hopitalizations: No Immunizations Up To Date PED Vaccines UTD: Yes Date of Pneumonia Vaccine: Jul 27, 2020 Date of Influenza Vaccine: Jul 27, 2020 Seasonal Allergies Seasonal Allergies: No Past Medical History Surgeries: Yes Renal Respiratory: Yes Pneumonia, Pulmonary Embolism Currently Using CPAP: No Currently Using BIPAP: No Cardiac: Yes Atrial Fibrillation, Chronic Edema/Swelling Neurological: No Genitourinary: Yes Renal Failure Gastrointestinal: Yes Gastroesophageal Reflux Musculoskeletal: No Endocrine: Yes Diabetes, Insulin dep HEENT: No Loss of Vision: Denies Hearing Impairment: Hard of Hearing Cancer: No Psychosocial: No Integumentary: Yes Eczema Blood Disorders: No Adverse Reaction/Blood Tranf: No Family Medical History Stroke, Other Conditions/Hx Review of Systems Time Seen by Provider: 14:34 Sepsis Event Evaluation Height, Weight, BMI Height: '" Weight: lbs. oz. kg; 27.92 BMI Method: Exam Exam Vital Signs Date Time Temp Pulse Resp B/P (MAP) Pulse Ox O2 Delivery O2 Flow Rate FiO2 10/06/20 12:06 37.0 81 17 124/76 (92) 99 Vapotherm 40.00 100.00 10/06/20 08:00 90 22 141/74 (96) 92 Vapotherm 40.00 100.00 10/06/20 08:00 Vapotherm 40.00 100 10/06/20 07:36 88 Vapotherm 40.00 100 10/06/20 03:43 36.4 74 22 130/60 (83) 92 Vapotherm 35.00 100.00 10/06/20 00:00 36.6 77 18 144/71 (95) 94 Vapotherm 30.00 10/05/20 21:56 97 Vapotherm 30.00 100 10/05/20 20:00 36.6 79 22 146/69 (94) 97 High Flow N/C 40.00 100.00 10/05/20 20:00 Vapotherm 30.00 100 10/05/20 19:00 84 10/05/20 16:00 36.0 79 20 130/60 (83) 96 High Flow N/C 40.00 10/05/20 15:48 35.6 76 20 132/60 94 High Flow N/C 40.00 10/05/20 15:35 93 Vapotherm 40.00 100 10/05/20 14:30 94 Vapotherm 40.00 100 I & O 10/06/20 07:00 Intake Total 150 ml Balance 150 ml Height & Weight Height: '" Weight: lbs. oz. kg; 27.92 BMI Method: General Appearance: Moderate Distress Respiratory: Accessory Muscle Use, Decreased Breath Sounds, Respiratory Distress Cardiovascular: Tachycardia Capillary Refill: Less Than 3 Seconds Gastrointestinal: non tender, soft, no organomegaly Extremity: Pedal Edema Results Lab Laboratory Tests 10/05/20 14:02 10/06/20 04:20 Assessment/Plan Assessment/Plan Acute respiratory failure with hypoxia -Currently requiring Vapotherm high flow -Labs and imaging reviewed Pneumonia -Merrem, and Vanco - Pulmonary edema -Continue Lasix -Check BNP Anemia with mild gastritis per EGD -Monitor PAF -Cardiology following -Warfarin BRIDGETTE CHAVEZ DO Oct 06, 2020 14:34
--- NOTE | 2020-10-06 14:44 | NUR ---
"RD ASSESSMENT PMHx: COPD; pneumonia; afib; GERD; DM; renal failure; PT INTERACTION: Pt was awake and pleasant during nutrition follow-up. Pt states he has been eating alright since last assessment. Note avg PO intake >75% of meals (including meals when pt was in IRF), per chart review. Pt states some issues with diarrhea since last assessment. Note last BM was 10/06, and pt currently on bowel regimen of senna BID, and miralax BID, per chart review. ABNORMAL NUTRITION-RELATED LAB VALUES LOW: Ca 7.1; glu 125; ALT 58; HIGH: Ca 7.1; Pro 4.3; alb 2.1; Est. kcal needs: 7488-6781 kcal | 20-25 kcal/kg Est. Pro needs: 79-99 g Pro | 0.8-1.0 g Pro/kg PES STATEMENT: Given current appetite and PO intake, no nutrition diagnosis at this time (NO-1.1). INTERVENTION: Continue with current diet order of CHO 60g/m 3snack diet. Will continue to follow and reassess as pt needs, intake, and status change. Tammy WILLINGHAM, MS RD LD [phone] cell"
[2020-10-06] MEDS ORDERED: TROUGH ORDER-PHARMACY XX NR (15:00)
--- NOTE | 2020-10-06 17:00 | NUR ---
Palliative Care RN received a message to call and speak with patient's son. He had some valid concerns regarding his fathers illness and how it happened all of a sudden for him on his 80th birthday in July. He reports he had an episode of CHF in August of last year, had a thoracentesis to drain fluid from around his lungs and recovered to a very normal active life after that. He has not smoked in over 40 years and has never been diagnosed with COPD. They are a struggling to believe their is not an underlying something that we are missing. We discussed whether he had had COVID previously and he said if he did it was an asymptomatic case. He questioned whether an Igg would show antibodies. I have asked Dr. Perez for that lab to be ordered. She is thinking about it. Continue current POC with treatment of Pne. Continue Vapotherm until can be successfully weaned. Continue FULL CODE for now.
[2020-10-06] MEDS: warFARin 1 MG (COUMADIN) TAB PO SCH (17:14)
[2020-10-07 04:00] VITALS: BP 152/69
[2020-10-07 04:24] LABS: ALBUMIN 2.1 GM/DL (3.2-4.5); CHLORIDE 106 MMOL/L (98-107); POTASSIUM 3.3 MMOL/L (3.6-5.0); SODIUM 142 MMOL/L (135-145)
[2020-10-07 04:25] LABS: CALCIUM 7.3 MG/DL (8.5-10.1)
[2020-10-07 04:26] LABS: GLUCOSE 90 MG/DL (70-105); TOTAL PROTEIN 4.3 GM/DL (6.4-8.2)
[2020-10-07 04:27] LABS: CARBON DIOXIDE 28 MMOL/L (21-32)
[2020-10-07 04:28] LABS: BILIRUBIN,TOTAL 0.6 MG/DL (0.1-1.0)
[2020-10-07 04:30] LABS: ALKALINE PHOSPHATASE 81 U/L (40-136); CREATININE SERUM 0.91 MG/DL (0.60-1.30); GFR ESTIMATED > 60
[2020-10-07 04:31] LABS: BUN/CREATININE RATIO 26
[2020-10-07 04:33] LABS: ALANINE AMINOTRANSFERASE 50 U/L (0-55)
[2020-10-07] MEDS ORDERED: WATER (STERILE) FOR INJECTION 10 ML ONE (05:10)
[2020-10-07] MEDS ORDERED: MEROPENEM 500 MG VIAL (MERREM) IV ONE (05:10)
[2020-10-07 05:14] LABS: INR 2.5 (0.8-1.4); PROTHROMBIN TIME PATIENT 27.1 SEC (12.2-14.7)
[2020-10-07] MEDS: MEROPENEM 500 MG in WATER (STERILE) FOR INJECTION 10 ML IV SCH ×4 (05:17→23:50)
[2020-10-07 05:31] LABS: BASOPHILS % (AUTO) 0 % (0-10); EOSINOPHILS # (AUTO) 0.2 10^3/uL (0.0-0.3); EOSINOPHILS % (AUTO) 2 % (0-10); HEMATOCRIT 28 % (40-54); HEMOGLOBIN 8.7 g/dL (13.3-17.7); LYMPHOCYTES # (AUTO) 0.6 10^3/uL (1.0-4.0); LYMPHOCYTES % (AUTO) 6 % (12-44); MEAN CORPUSCULAR HEMOGLOBIN 31 pg (25-34); MEAN CORPUSCULAR HGB CONC 31 g/dL (32-36); MEAN CORPUSCULAR VOLUME 98 fL (80-99); MEAN PLATELET VOLUME 11.5 fL (9.0-12.2); MONOCYTES # (AUTO) 0.7 10^3/uL (0.0-1.0); MONOCYTES % (AUTO) 7 % (0-12); NEUTROPHILS # (AUTO) 8.4 10^3/uL (1.8-7.8); NEUTROPHILS % (AUTO) 84 % (42-75); PLATELET COUNT 139 10^3/uL (130-400); WHITE BLOOD COUNT 9.9 10^3/uL (4.3-11.0)
[2020-10-07] MEDS: inSUlin ASPART (NovoLOG) 1 UNIT/0.01 ML (CHARGE PER UNIT) SC SCH ×4 (06:08→20:53)
[2020-10-07] MEDS: RT-ALBUTEROL/IPRATROPIUM 3 ML (DUONEB) VIAL IH SCH ×4 (06:25→19:14)
[2020-10-07 06:32] LABS: ABG OXYGEN SATURATION 97 % (94-100); ABG PCO2 51 MMHG (35-45); ABG PH 7.39 (7.37-7.43); ABG PO2 84 MMHG (79-93); ABG TCO2 32.4 MMOL/L (21.0-31.0)
[2020-10-07 06:33] LABS: ALLENS TEST POSITIVE; INSPIRED O2 100; PATIENT TEMP 36.6; VENTILATOR YES
[2020-10-07] MEDS: FUROSEMIDE 40 MG/4 ML INJ (LASIX) IV SCH ×2 (06:52→09:31)
--- NOTE | 2020-10-07 07:44 | Diagnostic Imaging Report ---
INDICATION: Abnormal breath sounds. TECHNIQUE: Single view chest 6:47 AM. CORRELATION STUDY: 10/06/2020 FINDINGS: Left upper extremity central line tip over the SVC stable. Heart size remains enlarged. Extensive coarse mixed alveolar and interstitial infiltrates persisting. Overall stable to perhaps minimally improved. Most dense area consolidation remains at the left lung base. IMPRESSION: 1. Extensive 5 lobe infiltrate persisting. Stable to slightly improved. Dictated by: Dictated on workstation # [id number]
[2020-10-07] MEDS ORDERED: TROUGH ORDER-PHARMACY XX NR (08:00)
[2020-10-07 08:04] VITALS: BP 153/76
[2020-10-07] MEDS: MULTIVIT W/MINERALS TAB (THERAGRAN M) PO SCH (08:17)
[2020-10-07] MEDS: FOLIC ACID 1 MG TAB PO SCH (08:17)
[2020-10-07] MEDS: polyethylene glycoL POWDER 17 GM (MIRALAX) PACK PO SCH ×2 (08:17→20:47)
[2020-10-07] MEDS: PANTOPRAZOLE 40 MG (PROTONIX) TAB PO SCH ×2 (08:17→20:52)
[2020-10-07] MEDS: NYSTATIN ORAL SUSP 5 ML UDC PO SCH ×4 (08:17→20:52)
[2020-10-07] MEDS: SENNA W/DOCUSATE (SENOKOT S) TABLET PO SCH ×2 (08:18→20:47)
[2020-10-07] MEDS: FLUTICASONE NASAL SPRAY (FLONASE) 16 GM BTL NS SCH ×2 (08:18→20:52)
[2020-10-07] MEDS: SALIVA STIMULANT MOUTH SPRAY (BIOTENE) 1.5 OZ MM SCH ×3 (08:18→20:51)
[2020-10-07] MEDS: NYSTATIN CREAM (MYCOSTATIN) 30 GM TUBE TP SCH ×3 (08:19→20:53)
[2020-10-07] MEDS ORDERED: KCL 20 MEQ TAB (K-DUR) PO NR (09:00)
--- NOTE | 2020-10-07 09:00 | Pulmonary Progress Note ---
Subjective Time Seen by a Provider: 08:57 Subjective/Events-last exam PT is still requiring 100% Vapotherm Sepsis Event Evaluation Height, Weight, BMI Height: '" Weight: lbs. oz. kg; 27.92 BMI Method: Focused Exam Lactate Level 10/05/20 14:00: Lactic Acid Level 0.91 Exam Exam Vital Signs Date Time Temp Pulse Resp B/P (MAP) Pulse Ox O2 Delivery O2 Flow Rate FiO2 10/07/20 08:04 36.9 88 16 153/76 (101) 91 Vapotherm 40.00 100.00 10/07/20 07:00 86 10/07/20 06:26 96 Vapotherm 40.00 100 10/07/20 04:00 36.6 78 18 152/69 (96) 93 Vapotherm 40.00 100.00 10/07/20 01:00 74 10/06/20 23:58 36.8 84 16 141/72 (95) 92 Vapotherm 40.00 100.00 10/06/20 20:26 Vapotherm 40.00 100 10/06/20 19:18 36.8 85 18 148/74 (98) 95 Vapotherm 40.00 100.00 10/06/20 19:00 86 10/06/20 18:28 94 Vapotherm 40.00 100 10/06/20 15:59 36.4 83 20 142/75 (97) 92 Vapotherm 40.00 100.00 10/06/20 14:50 90 Vapotherm 40.00 100 10/06/20 12:23 78 10/06/20 12:06 37.0 81 17 124/76 (92) 99 Vapotherm 40.00 100.00 I & O 10/07/20 07:00 Intake Total 1230 ml Output Total 925 ml Balance 305 ml Height & Weight Height: '" Weight: lbs. oz. kg; 27.92 BMI Method: General Appearance: WD/WN, Chronically ill, Moderate Distress, Obese HEENT: PERRL/EOMI, Normal ENT Inspection, Pharynx Normal Neck: Full Range of Motion, Normal Inspection, Non Tender, Supple, Carotid Bruit Respiratory: Chest Non Tender, No Respiratory Distress, Accessory Muscle Use, Decreased Breath Sounds, Respiratory Distress Cardiovascular: Tachycardia Capillary Refill: Less Than 3 Seconds Gastrointestinal: non tender, soft, no organomegaly Extremity: Pedal Edema Neurologic/Psychiatric: Alert, Oriented x3, No Motor/Sensory Deficits, Normal Mood/Affect Skin: Normal Color, Warm/Dry Lymphatic: No Adenopathy Results Lab Laboratory Tests 10/05/20 14:02 10/06/20 04:20 10/07/20 03:50 Assessment/Plan Assessment/Plan Acute respiratory failure with hypoxia -Currently requiring Vapotherm high flow 100% -Labs and imaging reviewed Pneumonia -Merrem, Pulmonary edema -Continue Lasix Anemia with mild gastritis per EGD -Monitor PAF -Cardiology following -Warfarin BRIDGETTE CHAVEZ DO Oct 07, 2020 09:00
[2020-10-07] MEDS: POTASSIUM CL 10MEQ/50ML IVPB 50 ML IV SCH ×4 (09:31→12:16)
--- NOTE | 2020-10-07 09:38 | NUR ---
PTD VANCOMYCIN LABS: SCR 0.91 WBC 9.9(18.2) VANCOMYCIN LEVELS ON 10/06 31.1 10/07 23.2 PHARMACOKINETIC CALC: T1/2 37 HOURS KD 0.0183 PLAN: WILL CHANGE VANCOMYCIN TO Q48H WITH NEXT DOSE SCHEDULED FOR 10/08 @ 0800, WILL RECHECK A TROUGH LEVEL PRIOR TO STARTING.
[2020-10-07 12:04] VITALS: BP 150/73
[2020-10-07] MEDS ORDERED: ONDANSETRON 4 MG (ZOFRAN) ORAL DISSOLVE TAB PO PRN (12:45)
[2020-10-07 15:48] VITALS: BP 130/72
[2020-10-07] MEDS: warFARin 1 MG (COUMADIN) TAB PO SCH (17:09)
--- NOTE | 2020-10-07 17:43 | Cardiology Progress Note ---
Cardiology SOAP Progress Note Subjective: Shortness of breath. Objective: I&O/Vital Signs 10/08/20 10/08/20 10/08/20 10/08/20 04:11 06:43 07:00 08:00 Temp 36.6 Pulse 85 86 Resp 20 B/P (MAP) 154/80 (104) Pulse Ox 90 92 O2 Delivery Vapotherm Vapotherm Vapotherm O2 Flow Rate 35.00 35.00 35.00 90.00 FiO2 80 90 10/08/20 10/08/20 10/08/20 08:00 12:00 13:00 Temp 36.6 36.4 Pulse 86 86 94 Resp 19 14 B/P (MAP) 151/67 (95) 146/67 (93) Pulse Ox 92 91 O2 Delivery Vapotherm Vapotherm O2 Flow Rate 35.00 35.00 90.00 75.00 10/08/20 00:00 Intake Total 1725 ml Output Total 2775 ml Balance -1050 ml Constitutional: AAO x 3, apparent distress Respiratory: accessory muscle use, respiratory distress, other (Decreased breath sounds bilaterally) Cardiovascular: regular rate-rhythm, S1 and S2, systolic murmur Gastrointestional: soft, audible bowel sounds Extremities: normal range of motion, non-tender, normal inspection Neurologic/Psychiatric: no motor/sensory deficits, alert, normal mood/affect, oriented x 3 Results/Procedures: Labs Laboratory Tests 10/07/20 16:03: Glucometer 106 10/07/20 20:44: Glucometer 285H 10/08/20 06:05: White Blood Count 9.7, Red Blood Count 2.83L, Hemoglobin 8.6L, Hematocrit 28L, Mean Corpuscular Volume 98, Mean Corpuscular Hemoglobin 30, Mean Corpuscular Hemoglobin Concent 31L, Red Cell Distribution Width 17.8H, Platelet Count 132, Mean Platelet Volume 10.6, Prothrombin Time 28.4H, INR Comment 2.6H, Sodium Level 142, Potassium Level 3.9, Chloride Level 104, Carbon Dioxide Level 31, Anion Gap 7, Blood Urea Nitrogen 22H, Creatinine 0.91, Estimat Glomerular Filtration Rate > 60, BUN/Creatinine Ratio 24, Glucose Level 148H, Calcium Level 7.3L, Corrected Calcium 8.7, Total Bilirubin 0.5, Aspartate Amino Transf ( T/SGOT) 24, Alanine Aminotransferase (ALT/SGPT) 47, Alkaline Phosphatase 80, B- Type Natriuretic Peptide 209.5H, Total Protein 4.5L, Albumin 2.2L, Procalcitonin 0.20H, Vancomycin Level Trough 16.5 10/08/20 06:30: Blood Gas Puncture Site LEFT RADIAL, Blood Gas Patient Temperature 36.4, Arterial Blood pH 7.44H, Arterial Blood Partial Pressure CO2 51H, Arterial Blood Partial Pressure O2 39*L, Arterial Blood HCO3 35H, Arterial Blood Total CO2 36.5H, Arterial Blood Oxygen Saturation 75L, Arterial Blood Base Excess 10.3H, Iker Test POSITIVE, Blood Gas Ventilator Setting NO, Blood Gas Inspired Oxygen 80 10/08/20 10:40: Glucometer 174H Microbiology 10/05/20 Blood Culture - Preliminary, Resulted No growth A/P: Assessment/Dx: Pneumonia Anemia PAF DM Plan: Pneumonia, having worsening dyspnea, management per Dr Perez and Pulm svce. On Vapotherm. Anemia of undetermined etiology - underwent EGD showing mild gastritis. PAF, currently sinus rhythm, OAC with warfarin, INR 3.2, continue to monitor. Hypokalemia, replaced and improved, continue to monitor. EKG of 09-29-2020 showed RBBB of unknown length of time Echocardiogram of Sep 28, 2020 showed LVEF 55-65%. 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 Perez Thank you for your consultation. Please call me if you have any questions. Malgorzata Fabian MD, FACP, FACC, FSCAI, FHRS, CCDS Interventional Cardiology Cardiac Electrophysiology Vascular Medicine and Endovascular Interventions Focused Exam Lactate Level 10/05/20 14:00: Lactic Acid Level 0.91 Aleks FABIAN MD Oct 07, 2020 17:43
[2020-10-07 19:52] VITALS: BP 129/58
[2020-10-07 23:50] VITALS: BP 143/92
[2020-10-08 04:11] VITALS: BP 154/80
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
[2020-10-08] MEDS: MEROPENEM 500 MG in WATER (STERILE) FOR INJECTION 10 ML IV SCH ×3 (05:59→17:57)
[2020-10-08 06:34] LABS: ALBUMIN 2.2 GM/DL (3.2-4.5); CHLORIDE 104 MMOL/L (98-107); POTASSIUM 3.9 MMOL/L (3.6-5.0); SODIUM 142 MMOL/L (135-145)
[2020-10-08 06:35] LABS: CALCIUM 7.3 MG/DL (8.5-10.1); HEMOGLOBIN 8.6 g/dL (13.3-17.7); MEAN PLATELET VOLUME 10.6 fL (9.0-12.2); WHITE BLOOD COUNT 9.7 10^3/uL (4.3-11.0)
[2020-10-08 06:36] LABS: GLUCOSE 148 MG/DL (70-105); INR 2.6 (0.8-1.4); PROTHROMBIN TIME PATIENT 28.4 SEC (12.2-14.7); TOTAL PROTEIN 4.5 GM/DL (6.4-8.2)
[2020-10-08 06:37] LABS: CARBON DIOXIDE 31 MMOL/L (21-32)
[2020-10-08 06:38] LABS: BILIRUBIN,TOTAL 0.5 MG/DL (0.1-1.0)
[2020-10-08] MEDS: inSUlin ASPART (NovoLOG) 1 UNIT/0.01 ML (CHARGE PER UNIT) SC SCH ×4 (06:38→21:00)
[2020-10-08 06:40] LABS: ALKALINE PHOSPHATASE 80 U/L (40-136); CREATININE SERUM 0.91 MG/DL (0.60-1.30); GFR ESTIMATED > 60
[2020-10-08 06:41] LABS: BUN/CREATININE RATIO 24
[2020-10-08 06:43] LABS: ALANINE AMINOTRANSFERASE 47 U/L (0-55)
[2020-10-08] MEDS: RT-ALBUTEROL/IPRATROPIUM 3 ML (DUONEB) VIAL IH SCH ×4 (06:43→21:29)
[2020-10-08 06:48] LABS: ABG BASE EXCESS 10.3 MMOL/L (-2.5-2.5); ABG OXYGEN SATURATION 75 % (94-100); ABG PCO2 51 MMHG (35-45); ABG PH 7.44 (7.37-7.43); ABG TCO2 36.5 MMOL/L (21.0-31.0); ALLENS TEST POSITIVE; VENTILATOR NO
[2020-10-08 06:49] LABS: INSPIRED O2 80; PATIENT TEMP 36.4
[2020-10-08 06:51] LABS: VANCOMYCIN,TROUGH 16.5 UG/ML (10.0-20.0)
[2020-10-08 06:51] LABS: ABG PO2 39 MMHG (79-93)
[2020-10-08] MEDS ORDERED: TROUGH ORDER-PHARMACY XX ONE (07:00)
[2020-10-08 08:00] VITALS: BP 151/67
[2020-10-08] MEDS ORDERED: VANCOMYCIN 1250 MG/NS 250 ML IVPB IV SCH ×2 (08:00)
[2020-10-08] MEDS: PANTOPRAZOLE 40 MG (PROTONIX) TAB PO SCH ×2 (08:20→21:00)
[2020-10-08] MEDS: FOLIC ACID 1 MG TAB PO SCH (08:20)
[2020-10-08] MEDS: NYSTATIN CREAM (MYCOSTATIN) 30 GM TUBE TP SCH ×3 (08:20→21:00)
[2020-10-08] MEDS: SALIVA STIMULANT MOUTH SPRAY (BIOTENE) 1.5 OZ MM SCH ×3 (08:20→21:00)
[2020-10-08] MEDS: FLUTICASONE NASAL SPRAY (FLONASE) 16 GM BTL NS SCH ×2 (08:20→21:00)
[2020-10-08] MEDS: NYSTATIN ORAL SUSP 5 ML UDC PO SCH ×4 (08:20→21:00)
[2020-10-08] MEDS: FUROSEMIDE 40 MG/4 ML INJ (LASIX) IV SCH (08:20)
[2020-10-08] MEDS: MULTIVIT W/MINERALS TAB (THERAGRAN M) PO SCH (08:20)
--- NOTE | 2020-10-08 08:38 | Diagnostic Imaging Report ---
INDICATION: Abnormal breath sounds. TECHNIQUE: Single view chest 7:45 AM. CORRELATION STUDY: 10/07/2020 FINDINGS: Left-sided central line tip over the high SVC. Heart size enlarged, mediastinum prominent. Vasculature is likely prominent as well. Extensive coarse 5 lobe infiltrate is again demonstrated. Given difference technique, generally stable. Probable bilateral pleural effusions versus pleural thickening. IMPRESSION: 1. Continued rather severe, extensive 5 lobe infiltrate. Dictated by: Dictated on workstation # [id number]
[2020-10-08] MEDS: SENNA W/DOCUSATE (SENOKOT S) TABLET PO SCH ×2 (11:32→20:54)
[2020-10-08] MEDS: polyethylene glycoL POWDER 17 GM (MIRALAX) PACK PO SCH ×2 (11:32→20:54)
[2020-10-08 12:00] VITALS: BP 146/67
--- NOTE | 2020-10-08 14:38 | Progress Note - Hospitalist ---
Subjective HPI/CC On Admission Date Seen by Provider: Oct 08, 2020 Time Seen by Provider: 10:45 CC: Dyspnea HPI: This is an 80yoWM who was transferred from [facility] to 4th floor then to [facility] due to revoking DNR status from [facility] who is currently on broad spectrum abx and on max Vapotherm at 40 liters and 100% Patient currently asking me what his chances of recovery is and after a heartfelt conversation I told him low probability of recovery. Palliative care nurse consulted. DC summary from [facility] 10/05/20: Hospital Course: Pt had a pretty complex hospital course for 7 days when he was admitted from [place] after a complicated stay at [facility] moved to [facility] in [place] for higher level of care and then to [place] and then 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 He acquired B/L pneumonia, placed on Meropenem and Vancomycin. Dr. Gamble was consulted. Oxygen supplementation was maintained and close monitoring with IV Lasix and IV steroids. He had a drop in Hgb requiring transfusion. Dr. Smith was consulted. EGD and colonoscopy were planned EGD revealed no source of bleeding but colonoscopy was not a good prep so it was unable to be done and attempted again today and the decision was made because of his oxygen requirement that he would be unable to proceed on with the colonoscopy considering his advanced and rapid progression with ABG hypoxemia 49 with normal pH he was transferred up to 4th floor. He remains a DNR as he had placed at [facility]. I did talk to Vanessa his daughter in depth for the second time today regarding his status that was rapidly deteriorating. Dr. Gamble saw him in a consultation and agreed with the plan but his prognosis remained very guarded and she had been reporting two times he was in poor prognosis before but he has little reserve and significant hypoxemia requiring Vapotherm. The prognosis is very poor. Subjective/Events-last exam He denies shortness of breath. He feels weak. He denies fevers. He is not coughing much. He has been eating and drinking. We discussed goals of care and code status. We discussed the poor prognosis which would be even worse with the addition of a cardiac arrest. He will consider this, but will remain a full code at this time. He says he does not want to do BiPAP, but would be ok with intubation if necessary. Objective Exam Vital Signs Vital Signs Date Time Temp Pulse Resp B/P (MAP) Pulse Ox O2 Delivery O2 Flow Rate FiO2 10/08/20 13:00 94 10/08/20 12:00 36.4 14 146/67 (93) 91 Vapotherm 35.00 75.00 10/08/20 08:00 90 Capillary Refill : Less Than 3 Seconds General Appearance: No Apparent Distress, Chronically ill HEENT: Pharynx Normal, Other (wearing glasses) Respiratory: No Respiratory Distress, Decreased Breath Sounds, Other (wearing Vapotherm) Cardiovascular: Regular Rate, Rhythm, No Edema, No Murmur Gastrointestinal: Normal Bowel Sounds, Non Tender, Soft Extremity: Normal Inspection, Non Tender, No Pedal Edema Neurologic/Psychiatric: Alert, Oriented x3, Normal Mood/Affect, Motor Weakness Skin: Warm/Dry, Pallor Results/Procedures Lab Laboratory Tests 10/08/20 06:05 Patient resulted labs reviewed. Imaging: Reviewed Imaging Report Assessment/Plan Assessment and Plan Assess & Plan/Chief Complaint Acute respiratory failure with hypoxia Pneumonia Likely pulmonary fibrosis Poor prognosis Goals of care discussion CT Chest 09/29 indicative of likely pulmonary fibrosis Repeat chest xrays with diffuse infiltrates Procal mildly elevated Vancomycin and Meropenem Lasix Begin trial of steroids Continue Vapotherm Discussed poor prognosis, discussed code status, patient considering options Critical illness myopathy PT/OT AFib on Coumadin INR 2.6 Continue Coumadin DVT Prophylaxis: already receiving therapeutic anticoagulation Diagnosis/Problems Diagnosis/Problems (1) Acute on chronic respiratory failure with hypoxia Status: Acute (2) PNA (pneumonia) Status: Acute (3) Poor prognosis Status: Acute (4) Goals of care, counseling/discussion Status: Acute (5) Anemia Status: Acute (6) Anticoagulated on Coumadin Status: Chronic (7) Afib Status: Chronic (8) Myopathy Status: Acute Clinical Quality Measures DVT/VTE Risk/Contraindication: Risk Factor Score Per Nursin RFS Level Per Nursing on Admit: 4+=Very High Contraindications-Pharm: Other *list below* Other: DAMON SINGER MD Oct 08, 2020 14:38
[2020-10-08] MEDS ORDERED: methylPREDNISolone 40 MG/ML (Solu-MEDROL) VIAL IV ONE (14:45)
--- NOTE | 2020-10-08 15:03 | NUR ---
REPORT GIVEN TO MU COLON, TO ASSUME CARE OF PATIENT AT THIS TIME.
[2020-10-08 17:00] VITALS: BP 151/68
[2020-10-08] MEDS: methylPREDNISolone 40 MG/ML (Solu-MEDROL) VIAL IV SCH (17:56)
[2020-10-08] MEDS: warFARin 1 MG (COUMADIN) TAB PO SCH (17:58)
[2020-10-08 20:34] VITALS: BP 154/78
[2020-10-09] MEDS: methylPREDNISolone 40 MG/ML (Solu-MEDROL) VIAL IV SCH ×4 (00:04→17:05)
[2020-10-09] MEDS: MEROPENEM 500 MG in WATER (STERILE) FOR INJECTION 10 ML IV SCH ×4 (00:04→17:05)
[2020-10-09 00:05] VITALS: BP 127/73
[2020-10-09 04:40] VITALS: BP 146/95
[2020-10-09] MEDS: RT-ALBUTEROL/IPRATROPIUM 3 ML (DUONEB) VIAL IH SCH ×3 (06:57→19:05)
[2020-10-09] MEDS: inSUlin ASPART (NovoLOG) 1 UNIT/0.01 ML (CHARGE PER UNIT) SC SCH ×4 (06:58→20:43)
[2020-10-09 07:22] VITALS: BP 150/94
[2020-10-09] MEDS: FOLIC ACID 1 MG TAB PO SCH (08:14)
[2020-10-09] MEDS: NYSTATIN ORAL SUSP 5 ML UDC PO SCH ×4 (08:14→20:41)
[2020-10-09] MEDS: FUROSEMIDE 40 MG/4 ML INJ (LASIX) IV SCH (08:14)
[2020-10-09] MEDS: MULTIVIT W/MINERALS TAB (THERAGRAN M) PO SCH (08:14)
[2020-10-09] MEDS: NYSTATIN CREAM (MYCOSTATIN) 30 GM TUBE TP SCH ×3 (08:15→20:42)
[2020-10-09] MEDS: polyethylene glycoL POWDER 17 GM (MIRALAX) PACK PO SCH ×2 (08:15→20:34)
[2020-10-09] MEDS: PANTOPRAZOLE 40 MG (PROTONIX) TAB PO SCH ×2 (08:15→20:41)
[2020-10-09] MEDS: FLUTICASONE NASAL SPRAY (FLONASE) 16 GM BTL NS SCH ×2 (08:15→20:41)
[2020-10-09] MEDS: SALIVA STIMULANT MOUTH SPRAY (BIOTENE) 1.5 OZ MM SCH ×3 (08:15→20:42)
[2020-10-09] MEDS: SENNA W/DOCUSATE (SENOKOT S) TABLET PO SCH ×2 (08:16→20:34)
--- NOTE | 2020-10-09 11:48 | Progress Note - Hospitalist ---
Subjective HPI/CC On Admission Date Seen by Provider: Oct 09, 2020 Time Seen by Provider: 10:00 CC: Dyspnea HPI: This is an 80yoWM who was transferred from [facility] to 4th floor then to [facility] due to revoking DNR status from [facility] who is currently on broad spectrum abx and on max Vapotherm at 40 liters and 100% Patient currently asking me what his chances of recovery is and after a heartfelt conversation I told him low probability of recovery. Palliative care nurse consulted. 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 He acquired B/L pneumonia, placed on Meropenem and Vancomycin. Dr. Gamble was consulted. Oxygen supplementation was maintained and close monitoring with IV Lasix and IV steroids. He had a drop in Hgb requiring transfusion. Dr. Smith was consulted. EGD and colonoscopy were planned EGD revealed no source of bleeding but colonoscopy was not a good prep so it was unable to be done and attempted again today and the decision was made because of his oxygen requirement that he would be unable to proceed on with the colonoscopy considering his advanced and rapid progression with ABG hypoxemia 49 with normal pH he was transferred up to 4th floor. He remains a DNR as he had placed at [facility]. I did talk to Vanessa his daughter in depth for the second time today regarding his status that was rapidly deteriorating. Dr. Gamble saw him in a consultation and agreed with the plan but his prognosis remained very guarded and she had been reporting two times he was in poor prognosis before but he has little reserve and significant hypoxemia requiring Vapotherm. The prognosis is very poor. Subjective/Events-last exam He reports feeling well. He denies trouble breathing. He has no complaints or concerns. He continues to have weakness. We again discussed his goals of care and he again said that he will speak with his family. Objective Exam Vital Signs Vital Signs Date Time Temp Pulse Resp B/P (MAP) Pulse Ox O2 Delivery O2 Flow Rate FiO2 10/09/20 08:00 94 Vapotherm 30.00 90 10/09/20 07:22 36.0 85 17 150/94 (112) Capillary Refill : Less Than 3 Seconds General Appearance: No Apparent Distress, Chronically ill HEENT: PERRL/EOMI, Pharynx Normal Neck: Normal Inspection, Supple Respiratory: No Respiratory Distress, Decreased Breath Sounds, Other (wearing Vapotherm) Cardiovascular: Regular Rate, Rhythm, No Edema, No Murmur Gastrointestinal: Normal Bowel Sounds, Non Tender, Soft Extremity: Normal Inspection, Non Tender, No Pedal Edema Neurologic/Psychiatric: Alert, Motor Weakness Skin: Warm/Dry, Pallor Results/Procedures Lab Patient resulted labs reviewed. Imaging: Reviewed Imaging Report Assessment/Plan Assessment and Plan Assess & Plan/Chief Complaint Acute respiratory failure with hypoxia Pneumonia Likely pulmonary fibrosis Poor prognosis Goals of care discussion COVID PCR negative, IgG negative CT Chest 09/29 indicative of likely pulmonary fibrosis Repeat chest xrays with diffuse infiltrates Procal mildly elevated Vancomycin and Meropenem Lasix Solu-Medrol Continue Vapotherm Again discussed poor prognosis, code status, patient plans to talk with family Critical illness myopathy PT/OT Anemia Hgb 8.6, stable Iron studies, folate, B12 pending AFib on Coumadin Continue Coumadin DVT Prophylaxis: already receiving therapeutic anticoagulation Diagnosis/Problems Diagnosis/Problems (1) Acute on chronic respiratory failure with hypoxia Status: Acute (2) PNA (pneumonia) Status: Acute (3) Poor prognosis Status: Acute (4) Goals of care, counseling/discussion Status: Acute (5) Anemia Status: Acute (6) Anticoagulated on Coumadin Status: Chronic (7) Afib Status: Chronic (8) Myopathy Status: Acute Clinical Quality Measures DVT/VTE Risk/Contraindication: Risk Factor Score Per Nursin RFS Level Per Nursing on Admit: 4+=Very High Contraindications-Pharm: Other *list below* Other: DAMON SINGER MD Oct 09, 2020 11:48
[2020-10-09 11:58] VITALS: BP 144/66
--- NOTE | 2020-10-09 13:53 | Cardiology Progress Note ---
Cardiology SOAP Progress Note Subjective: Shortness of breath. Objective: I&O/Vital Signs 10/09/20 10/09/20 10/09/20 10/09/20 04:40 06:59 07:00 07:22 Temp 36.4 36.0 Pulse 72 84 85 Resp 18 17 B/P (MAP) 146/95 (112) 150/94 (112) Pulse Ox 95 90 91 O2 Delivery Vapotherm Vapotherm Vapotherm O2 Flow Rate 30.00 30.00 30.00 85.00 85.00 FiO2 85 10/09/20 10/09/20 10/09/20 08:00 11:58 12:26 Temp 36.3 Pulse 90 96 Resp 20 B/P (MAP) 144/66 (92) Pulse Ox 94 94 O2 Delivery Vapotherm Vapotherm O2 Flow Rate 30.00 30.00 85.00 FiO2 90 10/09/20 00:00 Intake Total 1272.5 ml Balance 1272.5 ml Constitutional: AAO x 3, apparent distress Respiratory: accessory muscle use, respiratory distress, other (Decreased breath sounds bilaterally) Cardiovascular: regular rate-rhythm, S1 and S2, systolic murmur Gastrointestional: soft, audible bowel sounds Extremities: normal range of motion, non-tender, normal inspection Neurologic/Psychiatric: no motor/sensory deficits, alert, normal mood/affect, oriented x 3 Results/Procedures: Labs Laboratory Tests 10/08/20 16:16: Glucometer 166H 10/08/20 20:33: Glucometer 270H 10/09/20 06:44: Glucometer 228H 10/09/20 06:45: 10/09/20 10:37: Glucometer 318H Microbiology 10/05/20 Blood Culture - Preliminary, Resulted No growth A/P: Assessment/Dx: Pneumonia Anemia PAF DM Plan: Pneumonia, having worsening dyspnea, management per Dr Perez and Pulaleks kerr. On Vapotherm. Anemia of undetermined etiology - underwent EGD showing mild gastritis. PAF, currently sinus rhythm, OAC with warfarin, INR 3.2, continue to monitor. Hypokalemia, replaced and improved, continue to monitor. EKG of 09-29-2020 showed RBBB of unknown length of time Echocardiogram of Sep 28, 2020 showed LVEF 55-65%. 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 Perez Thank you for your consultation. Please call me if you have any questions. Malgorzata Fabian MD, FACP, FACC, FSCAI, FHRS, CCDS Interventional Cardiology Cardiac Electrophysiology Vascular Medicine and Endovascular Interventions Aleks FABIAN MD Oct 09, 2020 13:53
[2020-10-09 16:02] VITALS: BP 149/76
[2020-10-09] MEDS: warFARin 1 MG (COUMADIN) TAB PO SCH (17:05)
[2020-10-09 19:49] VITALS: BP 132/69
[2020-10-10 00:02] VITALS: BP 136/63
[2020-10-10] MEDS: MEROPENEM 500 MG in WATER (STERILE) FOR INJECTION 10 ML IV SCH ×4 (00:52→17:14)
[2020-10-10] MEDS: methylPREDNISolone 40 MG/ML (Solu-MEDROL) VIAL IV SCH ×4 (00:52→17:13)
[2020-10-10 04:47] VITALS: BP 132/62
[2020-10-10] MEDS: inSUlin ASPART (NovoLOG) 1 UNIT/0.01 ML (CHARGE PER UNIT) SC SCH ×4 (06:19→20:52)
[2020-10-10 06:30] LABS: BASOPHILS % (AUTO) 0 % (0-10); EOSINOPHILS % (AUTO) 0 % (0-10); HEMATOCRIT 29 % (40-54); HEMOGLOBIN 8.9 g/dL (13.3-17.7); LYMPHOCYTES # (AUTO) 0.4 10^3/uL (1.0-4.0); LYMPHOCYTES % (AUTO) 3 % (12-44); MEAN CORPUSCULAR HEMOGLOBIN 30 pg (25-34); MEAN CORPUSCULAR HGB CONC 31 g/dL (32-36); MEAN CORPUSCULAR VOLUME 97 fL (80-99); MONOCYTES # (AUTO) 0.2 10^3/uL (0.0-1.0); MONOCYTES % (AUTO) 2 % (0-12); NEUTROPHILS # (AUTO) 12.2 10^3/uL (1.8-7.8); NEUTROPHILS % (AUTO) 94 % (42-75); PLATELET COUNT 185 10^3/uL (130-400); WHITE BLOOD COUNT 12.9 10^3/uL (4.3-11.0)
[2020-10-10 06:37] LABS: CHLORIDE 105 MMOL/L (98-107); POTASSIUM 4.7 MMOL/L (3.6-5.0); SODIUM 145 MMOL/L (135-145)
[2020-10-10 06:39] LABS: CALCIUM 7.7 MG/DL (8.5-10.1); GLUCOSE 261 MG/DL (70-105)
[2020-10-10 06:40] LABS: CARBON DIOXIDE 32 MMOL/L (21-32); INR 3.3 (0.8-1.4)
[2020-10-10 06:43] LABS: GFR ESTIMATED > 60
[2020-10-10 06:44] LABS: BUN/CREATININE RATIO 36
[2020-10-10 06:45] LABS: MAGNESIUM 1.8 MG/DL (1.6-2.4)
--- NOTE | 2020-10-10 06:59 | Pulmonary Progress Note ---
Subjective Date Seen by a Provider: Oct 10, 2020 Time Seen by a Provider: 06:45 Subjective/Events-last exam On vapotherm 70% FiO2, O2 sat 95% Notes productive cough, no SOB, no CP No other complaints this morning Sepsis Event Evaluation Height, Weight, BMI Height: '" Weight: lbs. oz. kg; 27.92 BMI Method: Exam Exam Vital Signs Date Time Temp Pulse Resp B/P (MAP) Pulse Ox O2 Delivery O2 Flow Rate FiO2 10/10/20 04:47 36.3 74 18 132/62 (85) 93 Vapotherm 20.00 50.00 10/10/20 03:38 98 Vapotherm 30.00 75 10/10/20 01:00 72 10/10/20 00:02 36.7 81 18 136/63 (87) 98 Vapotherm 30.00 75.00 10/09/20 22:43 98 Vapotherm 30.00 85 10/09/20 20:45 Vapotherm 30.00 85 10/09/20 19:49 36.6 96 23 132/69 (90) 96 Vapotherm 30.00 60.00 10/09/20 19:05 95 Vapotherm 30.00 85 10/09/20 19:00 97 10/09/20 16:02 37.0 93 21 149/76 (100) 97 Vapotherm 30.00 85.00 10/09/20 14:43 95 Vapotherm 30.00 85 10/09/20 12:26 96 10/09/20 11:58 36.3 90 20 144/66 (92) 94 Vapotherm 30.00 85.00 10/09/20 08:00 94 Vapotherm 30.00 90 10/09/20 07:22 36.0 85 17 150/94 (112) 91 Vapotherm 30.00 85.00 10/09/20 07:00 84 10/09/20 06:59 90 Vapotherm 30.00 85 I & O 10/10/20 07:00 Intake Total 1150 ml Output Total 651 ml Balance 499 ml Height & Weight Height: '" Weight: lbs. oz. kg; 27.92 BMI Method: General Appearance: No Apparent Distress, Chronically ill HEENT: PERRL/EOMI, Pharynx Normal Neck: Normal Inspection, Supple Respiratory: No Respiratory Distress, Decreased Breath Sounds, Other Cardiovascular: Regular Rate, Rhythm, No Edema, No Murmur Capillary Refill: Less Than 3 Seconds Gastrointestinal: non tender, soft, no organomegaly Extremity: Normal Inspection, Non Tender, No Pedal Edema Neurologic/Psychiatric: Alert, Motor Weakness Skin: Warm/Dry, Pallor Lymphatic: No Adenopathy Results Lab Laboratory Tests 10/10/20 06:00 Assessment/Plan Assessment/Plan Acute respiratory failure with hypoxia -on Vapotherm 70% FiO2 -on Solumedrol and Duoneb Pneumonia -on Merrem and Vanc -repeat CXR Anemia with mild gastritis per EGD -Hgb stable -Monitor PAF -Cardiology following -on Warfarin DVT/GI ppx -on Warfarin -on Protonix RUBY READ,MED STUDENT Oct 10, 2020 06:59
[2020-10-10 07:49] VITALS: BP 146/67
[2020-10-10] MEDS: RT-ALBUTEROL/IPRATROPIUM 3 ML (DUONEB) VIAL IH SCH ×4 (08:46→18:51)
[2020-10-10] MEDS: MULTIVIT W/MINERALS TAB (THERAGRAN M) PO SCH (09:03)
[2020-10-10] MEDS: SENNA W/DOCUSATE (SENOKOT S) TABLET PO SCH ×2 (09:03→20:54)
[2020-10-10] MEDS: PANTOPRAZOLE 40 MG (PROTONIX) TAB PO SCH ×2 (09:03→20:53)
[2020-10-10] MEDS: FOLIC ACID 1 MG TAB PO SCH (09:03)
[2020-10-10] MEDS: FUROSEMIDE 40 MG/4 ML INJ (LASIX) IV SCH (09:03)
[2020-10-10] MEDS: NYSTATIN ORAL SUSP 5 ML UDC PO SCH ×4 (09:03→20:53)
[2020-10-10] MEDS: FLUTICASONE NASAL SPRAY (FLONASE) 16 GM BTL NS SCH ×2 (09:04→20:53)
[2020-10-10] MEDS: SALIVA STIMULANT MOUTH SPRAY (BIOTENE) 1.5 OZ MM SCH ×3 (09:04→20:53)
[2020-10-10] MEDS: NYSTATIN CREAM (MYCOSTATIN) 30 GM TUBE TP SCH ×3 (09:04→20:52)
[2020-10-10] MEDS: polyethylene glycoL POWDER 17 GM (MIRALAX) PACK PO SCH ×2 (09:04→20:53)
--- NOTE | 2020-10-10 09:39 | Cardiology Progress Note ---
Subjective Date Seen by Provider: Oct 10, 2020 Time Seen by Provider: 09:37 Subjective/Events-last exam patient is laying down in bed, feeling better, maintained on Vapotherm Review of Systems General: No Chills, No Night Sweats; Fatigue, Malaise; No Appetite, No Other HEENT: No Head Aches, No Visual Changes, No Eye Pain, No Ear Pain, No Dysphasia, No Sinus Congestion, No Post Nasal Drip, No Sore Throat, No Other Pulmonary: Dyspnea; No Cough, No Pleuritic Chest Pain, No Other Cardiovascular: No: Chest Pain, Palpitations, Orthopnea, Paroxysmal Noc. Dyspnea, Edema, Lt Headedness, Other Objective-Cardiology Exam Last Set of Vital Signs Vital Signs 10/10/20 10/10/20 07:49 07:51 Temp 36.8 Pulse 87 Resp 28 B/P (MAP) 146/67 (93) Pulse Ox 92 O2 Delivery Vapotherm O2 Flow Rate 20.00 FiO2 70 Capillary Refill : Less Than 3 Seconds I&O Intake and Output 10/10/20 00:00 Intake Total 1150 ml Output Total 401 ml Balance 749 ml Intake Oral 1150 ml Output Urine Total 401 ml # Voids 3 # Urine Diapers 1 # Bowel Movements 1 General: Alert, Oriented X3, Cooperative, Moderate Distress HEENT: Atraumatic, PERRLA Neck: Supple, No JVD, No Thyromegaly Lungs: Clear to Auscultation, Normal Air Movement Heart: Regular Rate, Normal S1, Normal S2 Abdomen: Normal Bowel Sounds Extremities: No Edema Skin: No Rashes, No Significant Lesion Neuro: Cranial Nerves 3-12 NL Psych/Mental Status: Mental Status NL Results Lab Laboratory Tests 10/10/20 06:00 A/P-Cardiology Admission Diagnosis Pneumonia Anemia PAF DM Assessment/Plan Pneumonia, 5 lobes infiltrate, receiving antibiotic, managed by primary care team Anemia of undetermined etiology - underwent EGD showing mild gastritis. continue to monitor H&H PAF, currently sinus rhythm, OAC with warfarin, continue to monitor INR EKG of 09-29-2020 showed RBBB of unknown length of time Echocardiogram of Sep 28, 2020 showed LVEF 55-65%. PASP 25-30mmHg DM 2, followed and managed by primary care physician CKD 3, continue to monitor Gen weakness from long-term illness - management per Dr. Perez Clinical Quality Measures DVT/VTE Risk/Contraindication: Risk Factor Score Per Nursin RFS Level Per Nursing on Admit: 4+=Very High Contraindications-Pharm: Other *list below* Other: ANIKA CASTRO MD Oct 10, 2020 09:39
--- NOTE | 2020-10-10 10:44 | Physical Therapy Evaluation ---
PT Evaluation-General Medical Diagnosis Admission Date Oct 05, 2020 at 13:27 Medical Diagnosis: respiratory insufficency Onset Date: Oct 05, 2020 Therapy Diagnosis Therapy Diagnosis: severe debility/weakness Precautions Precautions/Isolations: Fall Prevention, Standard Precautions Referral Physician: Ana Reason for Referral: Evaluation/Treatment Medical History Pertinent Medical History: Atrial Fib, DM, GERD, PVD Additional Medical History Has been in hospital or care facility since 07/2020 Current History Hospital Course: Pt had a pretty complex hospital course for 7 days when he was admitted from [place] after a complicated stay at [facility] moved to [facility] [place] for higher level of care and then to [place] and then 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 He acquired B/L pneumonia, placed on Meropenem and Vancomycin. Dr. Gamble was consulted. Oxygen supplementation was maintained and close monitoring with IV Lasix and IV steroids. He had a drop in Hgb requiring transfusion. Dr. Smith was consulted. EGD and colonoscopy were planned EGD revealed no source of bleeding but colonoscopy was not a good prep so it was unable to be done and attempted again today and the decision was made because of his oxygen requirement that he would be unable to proceed on with the colonoscopy considering his advanced and rapid progression with ABG hypoxemia 49 with normal pH he was transferred up to 4th floor. He remains a DNR as he had placed at [facility]. I did talk to Vanessa his daughter in depth for the second time today regarding his status that was rapidly deteriorating. Dr. Gamble saw him in a consultation and agreed with the plan but his prognosis remained very guarded and she had been reporting two times he was in poor prognosis before but he has little reserve and significant hypoxemia requiring Vapotherm. The prognosis is very poor. Prior Prior Level of Function SCALE: Activities may be completed with or without assistive devices. 6-Hgfkrmvfln-macoooj completes the activity by him/herself with no assistance from a helper. 5-Set-up or Clean-up Assistance-helper sets up or cleans up; patient completes activity. [place] assists only prior to or following the activity. 4-Supervision or Touching Assistance-helper provides verbal cues and/or touching/steadying and/or contact guard assistance as patient completes activity. Assistance may be provided throughout the activity or intermittently. 3-Partial/Moderate Assistance-helper does LESS THAN HALF the effort. [place] lifts, holds or supports trunk or limbs, but provides less than half the effort. 2-Substantial/Maximal Assistance-helper does MORE THAN HALF the effort. [place] lifts or holds trunk or limbs and provides more than half the effort. 0-Wkoujmdng-fohiao does ALL the effort. Patient does none of the effort to co mplete the activity. Or, the assistance of 2 or more helpers is required for the patient to complete the activity. If activity was not attempted, code reason: 7-Patient Refused. 9-Not Applicable-not attempted and the patient did not perform the activity before the current illness, exacerbation or injury. 10-Not Attempted due to Environmental Limitations-(lack of equipment, weather restraints, etc.). 88-Not Attempted due to Medical Conditions or Safety Concerns. Bed Mobility: 6 Transfers (B,C,W/C): 6 Gait: 6 PT Evaluation-Current Subjective Patient agrees to PT. Objective Patient Orientation: Normal For Age Attachments: Oxygen (vapotherm) ROM/Strength ROM Lower Extremities bilateral LE WFL Strength Lower Extremities right knee flexion 3-/5/extension 2/5; hip flexion2-/5; DF/PF 2-/5 left knee flexion 3/5/extension 3-/5; hip flexion 2/5; DF/PF 2-/5 Integumentary/Posture Integumentary refer to nursing notes Bowel Incontinence: Yes Bladder Incontinence: Yes Posture kyphotic due to extreme core weakness Neuromuscular (Tone, Coordination, Reflexes) diminished coordination due to weakness Sensory Vision: Wears Glasses Hearing: Functional Transfers Roll Left to Right (QC): 1 Sit to Lying (QC): 1 Lying to Sitting/Side of Bed(Q: 1 Sit to Stand (QC): 88 Chair/Pgf-sc-Ldvyk Xfer(QC): 88 Ivonne Lift transfer for safety of patient and staff Gait Does the Patient Walk?: No and Walking Goal NOT indicated Balance Sitting Static: Fair Sitting Dynamic: Fair Assessment/Needs 80 y.o. male, will benefit from skilled PT to address functional strength to improve functional mobility. Patient is currently dependent with all mobility and requires Ivonne Lift for transfer for patient and staff safety. Rehab Potential: Guarded PT Snf Goals Ethics Officer Goals PT Ethics Officer Goals Time Frame: Nov 05, 2020 Roll Left & Right (QC): 3 Sit to Lying (QC): 3 Lying-Sitting on Side/Bed(QC): 3 Sit to Stand (QC): 2 Chair/Tvl-ek-Dwtte Xfer(QC): 2 PT Plan Problem List Problem List: Activity Tolerance, Functional Strength, Safety, Balance, Transfer, Bed Mobility Treatment/Plan Treatment Plan: Continue Plan of Care Treatment Plan: Bed Mobility, Education, Functional Activity [place], Functional Strength, Safety, Therapeutic Exercise, Transfers Treatment Duration: Nov 05, 2020 Frequency: 6 times per week Estimated Hrs Per Day: .5 hour per day Patient and/or Family Agrees t: Yes Discharge Recommendations Therapy Discharge Recommendati: Other, See Comments (longterm facility) Time/GCodes Time In: 1001 Time Out: 1015 Total Billed Treatment Time: 14 Total Billed Treatment [address] [facility] 14 min LYDIA LORENZANA PT Oct 10, 2020 10:44
--- NOTE | 2020-10-10 11:28 | Occupational Therapy Eval ---
OT Evaluation-General/PLF Medical Diagnosis Admission Date Oct 05, 2020 at 13:27 Medical Diagnosis: respiratory insufficency Onset Date: Oct 05, 2020 Therapy Diagnosis Therapy Diagnosis: Decreased ADL status Precautions Precautions/Isolations: Fall Prevention, Standard Precautions Referral Physician: Ana Referral Reason: Activity Tolerance, Self Care, Evaluation/Treatment, Strengthening/ROM Medical History Pertinent Medical History: Atrial Fib, DM, GERD, PVD Additional Medical History COPD, PNA, a fib, IDDM Current History Pt SOB, generalized weakness, occasional dizziness for ~2-3 weeks, transferred to [facility] in [place] on 08/20. 08/23 intubated, self extubated, 08/24 reintubated, 08/26 weaned from vent. 09/28/2020 Transferred to [facility] from [facility] for skilled therapies and continued medication management. [facility] Reviewed History: Yes Social History Home: Multilevel Current Living Status: Alone Upon d/c, pt states he will probably live with daughter in multilevel home, 4 steps to enter with railing, tub/ shower. Pt states he will live on main level. ADL-Prior Level of Function SCALE: Activities may be completed with or without assistive devices. 1-Hdfnseplao-wyiyjxu completes the activity by him/herself with no assistance from a helper. 5-Set-up or Clean-up Assistance-helper sets up or cleans up; patient completes activity. [place] assists only prior to or following the activity. 4-Supervision or Touching Assistance-helper provides verbal cues and/or touching/steadying and/or contact guard assistance as patient completes activity. Assistance may be provided throughout the activity or intermittently. 3-Partial/Moderate Assistance-helper does LESS THAN HALF the effort. [place] lifts, holds or supports trunk or limbs, but provides less than half the effort. 2-Substantial/Maximal Assistance-helper does MORE THAN HALF the effort. [place] lifts or holds trunk or limbs and provides more than half the effort. 1-Dfxwbdykg-mldcni does ALL the effort. Patient does none of the effort to complete the activity. Or, the assistance of 2 or more helpers is required for the patient to complete the activity. If activity was not attempted, code reason: 7-Patient Refused. 9-Not Applicable-not attempted and the patient did not perform the activity before the current illness, exacerbation or injury. 10-Not Attempted due to Environmental Limitations-(lack of equipment, weather restraints, etc.). 88-Not Attempted due to Medical Conditions or Safety Concerns. ADL PLOF Comments Pt was IND prior to Jul, when first developed leg weakness. Pt was IND without AD, driving, hobbies of woodworking/ construction Self Care: Independent Functional Cognition: Independent Occupation: retired. Drive Self: Yes OT Current Status Subjective Pt AxO. In bed upon entry. Vapotherm donned. Pt very talkative and in good spirits. 02 maintains >90% through session. Pt agrees to OT tx, denies pain. Mental Status/Objective Patient Orientation: Person, Place, Situation, Normal For Age Attachments: Oxygen Current Glasses/Contacts: Yes Hearing Aids: No Dentures/Partials: Yes Hand Dominance: Right Upper Extremity ROM WFL BUE Upper Extremity Coordination WFL BUE Upper Extremity Sensation WFL BUE Upper Extremity Strength WFL BUE (4/5) decreased BLE strength. ADL-Treatment Eating (QC): 6 Oral Hygiene (QC): 6 Upper Body Dressing (QC): 2 (per pt/ clinical judgement. Pt has decreased core strength) Lower Body Dressing (QC): 1 (TD per clinical judgment. ) On/Off Footwear (QC): 1 (TD per clinical [employer]. ) Other Treatments Pt in bed. O2 mid 90's. Pt provides hx/ home environment/ daughter's home environment. MMT/ ROM WFL BUE. Pt states main issue is "breathing and leg weakness." Pt able to sit upright in bed, though 02 drops 2%. Recovers quickly. Pt provides hx of ADL activity on ARU. Pt is educated on UE exercises and benefits of sitting upright. Pt sitting in bed at ~80% incline. Pt states tolerable. Pt left with education on OT process and continuation of UE/ LE movement. Pt agrees, all needs met, call light in reach. Education OT Patient Education: Correct positioning, Exercise program, Home exercise program, Safety issues Teaching Recipient: Patient Teaching Methods: Demonstration, Discussion Response to Teaching: Verbalize Understanding, Return Demonstration OT Physician Non Invasive Cardiologist Goals [facility] Goals Time Frame: Oct 24, 2020 Eating (QC): 6 Oral Hygiene (QC): 6 Toileting Hygiene (QC): 2 Shower/Bathe Self (QC): 3 Upper Body Dressing (QC): 4 Lower Body Dressing (QC): 2 On/Off Footwear (QC): 2 Additional Goals: 1-Demonstrate ADL Tasks, 2-Verbalize Understanding, 3-ImproveStrength/[place] 1=Demonstrate adherence to instructed precautions during ADL tasks. 2=Patient will verbalize/demonstrate understanding of assistive devices/modifications for ADL. 3=Patient will improve strength/tolerance for activity to enable patient to perform ADL's. OT Education/Plan Problem List/Assessment Assessment: Decreased Activ Tolerance, Decreased UE Strength, Dependent Transfers, Impaired Bed Mobility, Impaired Funct Balance, Impaired I ADL's, Impaired Self-Care Skills Discharge Recommendations Plan/Recommendations: Continue POC Therapy Discharge Recommendati: 24 Hour Supervision, Post Acute OT Treatment Plan/Plan of Care Treatment,Training & Education: Yes Patient would benefit from OT for education, treatment and training to promote independence in ADL's, mobility, safety and/or upper extremity function for ADL's. Plan of Care: ADL Retraining, Caregiver Training, Functional Mobility, Group Exercise/Act as Ind, UE Funct Exercise/Act, UE Neuromus Re-Ed/Coord Treatment Duration: Oct 24, 2020 Frequency: 5 times per week Estimated Hrs Per Day: .25 hour per day Agreement: Yes Rehab Potential: Guarded Time/GCodes Start Time: 10:37 Stop Time: 10:57 Total Time Billed (hr/min): 20 Billed Treatment Time 1, EVM (20) GREG VEGAS OTR Oct 10, 2020 11:28
[2020-10-10 11:55] VITALS: BP 161/81
--- NOTE | 2020-10-10 12:33 | Progress Note - Hospitalist ---
LELA KINGLAN MED STUDENT 10/10/20 1233: Subjective HPI/CC On Admission Date Seen by Provider: Oct 10, 2020 Time Seen by Provider: 09:15 CC: Dyspnea HPI: This is an 80yoWM who was transferred from [facility] to 4th floor then to [facility] due to revoking DNR status from [facility] who is currently on broad spectrum abx and on max Vapotherm at 40 liters and 100% Patient currently asking me what his chances of recovery is and after a heartfelt conversation I told him low probability of recovery. Palliative care nurse consulted. 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 He acquired B/L pneumonia, placed on Meropenem and Vancomycin. Dr. Gamble was consulted. Oxygen supplementation was maintained and close monitoring with IV Lasix and IV steroids. He had a drop in Hgb requiring transfusion. Dr. Smith was consulted. EGD and colonoscopy were planned EGD revealed no source of bleeding but colonoscopy was not a good prep so it was unable to be done and attempted again today and the decision was made because of his oxygen requirement that he would be unable to proceed on with the colonoscopy considering his advanced and rapid progression with ABG hypoxemia 49 with normal pH he was transferred up to 4th floor. He remains a DNR as he had placed at [facility]. I did talk to Vanessa his daughter in depth for the second time today regarding his status that was rapidly deteriorating. Dr. Gamble saw him in a consultation and agreed with the plan but his prognosis remained very guarded and she had been reporting two izaiah es he was in poor prognosis before but he has little reserve and significant hypoxemia requiring Vapotherm. The prognosis is very poor. Subjective/Events-last exam WBC increased from 9.7 to 12.9 Hgb was low at 8.9 PT and INR were increased respectively at 34 and 3.3 he expressed that he wants to begin working his legs and arms again vapotherm was decreased to 60% after covid antibody test came back negative he is even more confused as to what happened to his lungs Review of Systems General: Fatigue Pulmonary: Dyspnea Focused Exam Respiratory: Chest Non Tender, Respiratory Distress, Wheezing Cardiovascular: Regular Rate, Rhythm, No Edema, No Gallop, No JVD, No Murmur, Normal Peripheral Pulses Skin: normal color, warm/dry Objective Exam Vital Signs Vital Signs Date Time Temp Pulse Resp B/P (MAP) Pulse Ox O2 Delivery O2 Flow Rate FiO2 10/10/20 10:29 94 Vapotherm 25.00 85 10/10/20 07:49 36.8 87 28 146/67 (93) Capillary Refill : Less Than 3 Seconds General Appearance: Chronically ill, Mild Distress HEENT: PERRL/EOMI, TMs Normal, Normal ENT Inspection, Pharynx Normal Neck: Full Range of Motion Respiratory: Chest Non Tender, Respiratory Distress, Wheezing Cardiovascular: Regular Rate, Rhythm, No Edema, No Gallop, No JVD, No Murmur, Normal Peripheral Pulses Extremity: Normal Capillary Refill, Normal Inspection Neurologic/Psychiatric: Alert, Oriented x3, No Motor/Sensory Deficits, Normal Mood/Affect, member services coordinator II-XII Norm as Tested Skin: Normal Color, Warm/Dry Lymphatic: No Adenopathy Results/Procedures Lab Laboratory Tests 10/10/20 06:00 Patient resulted labs reviewed. Imaging: Reviewed Imaging Report Assessment/Plan Assessment and Plan Assess & Plan/Chief Complaint Assessment: Respiratory insufficiency Plan: begin PT/OT continue decreasing vapotherm look into possible alf transfer Time spent with patient (mins): 15 Diagnosis/Problems Diagnosis/Problems (1) Respiratory insufficiency Clinical Quality Measures DVT/VTE Risk/Contraindication: Risk Factor Score Per Nursin RFS Level Per Nursing on Admit: 4+=Very High Contraindications-Pharm: Other *list below* Other: [facility] Supervisory-Addendum Brief Verification & Attestation Participated in pt care: history, physical Personally performed: exam, history Care discussed with: Medical Student Procedures: n/a MARISSA JONES DO 10/11/20 0541: Subjective Subjective/Events-last exam Decreasing Vapotherm Still remains a full code PT and OT will be ordered Bowels need some treatment so will initiate meds Overall prognosis remains very poor Review of Systems Pulmonary: Dyspnea Objective Exam General Appearance: No Apparent Distress, WD/WN, Chronically ill Respiratory: Accessory Muscle Use, Decreased Breath Sounds, Wheezing Cardiovascular: Regular Rate, Rhythm Assessment/Plan Assessment and Plan Assess & Plan/Chief Complaint Decrease Vapotherm Monitor closely Prognosis poor Supervisory-Addendum Brief Verification & Attestation Participated in pt care: history, MDM, physical Personally performed: exam, history, MDM, supervision of care Care discussed with: Medical Student Procedures: n/a Results interpretation: Verified all documentation Verification and Attestation of Medical Student E/M Service A medical student performed and documented this service in my presence. I reviewed and verified all information documented by the medical student and made modifications to such information, when appropriate. I personally performed the physical exam and medical decision making. Marissa Jones, Oct 11, 2020,05:40 REBA KING MED STUDENT Oct 10, 2020 12:33 MARISSA JONES DO Oct 11, 2020 05:41
--- NOTE | 2020-10-10 12:54 | NUR ---
Palliative Care RN was asked to call son, Dane and give and update on condition. I was able to give some happy reports such as his O2 requirement is slightly lessening on the Vapotherm and PT/OT began working with patient today. I informed him of the negative CV IGg result. He is baffled at why he got so acutely ill with 2 months in various hospitals. . We discussed his dad's "incontinence" of BM and reports that patient says he knows when he has to go. I will talk with the patient about using his call light for this purpose ..for use of either [facility] w Ivonne lift or a bedpan. May need to do some Beck voiding education and retraining. Patient was from his home Independent...He would like to get to that point again.
[2020-10-10] MEDS ORDERED: VANCOMYCIN 1250 MG/NS 250 ML IVPB IV SCH ×2 (15:00)
[2020-10-10 15:44] VITALS: BP 145/61
[2020-10-10] MEDS: warFARin 1 MG (COUMADIN) TAB PO SCH (15:55)
[2020-10-10 19:40] VITALS: BP 141/64
[2020-10-10] MEDS: VANCOMYCIN INJECTION 1,250 MG in NS (IVPB) 250 ML IV SCH (20:52)
[2020-10-11] VITALS (8 sets, daily range): BP systolic 124–155; BP diastolic 59–74
[2020-10-11] MEDS: methylPREDNISolone 40 MG/ML (Solu-MEDROL) VIAL IV SCH ×3 (00:55→20:23)
[2020-10-11] MEDS: MEROPENEM 500 MG in WATER (STERILE) FOR INJECTION 10 ML IV SCH ×5 (00:55→23:05)
[2020-10-11 05:19] LABS: BASOPHILS % (AUTO) 0 % (0-10); EOSINOPHILS % (AUTO) 0 % (0-10); HEMATOCRIT 28 % (40-54); HEMOGLOBIN 8.5 g/dL (13.3-17.7); LYMPHOCYTES # (AUTO) 0.4 10^3/uL (1.0-4.0); LYMPHOCYTES % (AUTO) 3 % (12-44); MEAN CORPUSCULAR HEMOGLOBIN 30 pg (25-34); MEAN CORPUSCULAR HGB CONC 31 g/dL (32-36); MEAN CORPUSCULAR VOLUME 96 fL (80-99); MEAN PLATELET VOLUME 10.9 fL (9.0-12.2); MONOCYTES # (AUTO) 0.3 10^3/uL (0.0-1.0); MONOCYTES % (AUTO) 2 % (0-12); NEUTROPHILS # (AUTO) 12.1 10^3/uL (1.8-7.8); NEUTROPHILS % (AUTO) 94 % (42-75); PLATELET COUNT 208 10^3/uL (130-400); WHITE BLOOD COUNT 12.9 10^3/uL (4.3-11.0)
[2020-10-11 05:30] LABS: ALBUMIN 2.5 GM/DL (3.2-4.5); POTASSIUM 4.3 MMOL/L (3.6-5.0)
[2020-10-11 05:31] LABS: CALCIUM 7.5 MG/DL (8.5-10.1); PROTHROMBIN TIME PATIENT 31.2 SEC (12.2-14.7)
[2020-10-11 05:34] LABS: BILIRUBIN,TOTAL 0.4 MG/DL (0.1-1.0)
[2020-10-11 05:36] LABS: CREATININE SERUM 1.28 MG/DL (0.60-1.30)
[2020-10-11] MEDS: inSUlin ASPART (NovoLOG) 1 UNIT/0.01 ML (CHARGE PER UNIT) SC SCH ×4 (06:17→20:25)
[2020-10-11] MEDS: RT-ALBUTEROL/IPRATROPIUM 3 ML (DUONEB) VIAL IH SCH ×4 (06:37→19:04)
[2020-10-11] MEDS: FUROSEMIDE 40 MG/4 ML INJ (LASIX) IV SCH (08:26)
[2020-10-11] MEDS: NYSTATIN ORAL SUSP 5 ML UDC PO SCH ×4 (08:26→20:23)
[2020-10-11] MEDS: SENNA W/DOCUSATE (SENOKOT S) TABLET PO SCH ×2 (08:26→20:24)
[2020-10-11] MEDS: PANTOPRAZOLE 40 MG (PROTONIX) TAB PO SCH ×2 (08:26→20:24)
[2020-10-11] MEDS: MULTIVIT W/MINERALS TAB (THERAGRAN M) PO SCH (08:26)
[2020-10-11] MEDS: FOLIC ACID 1 MG TAB PO SCH (08:26)
[2020-10-11] MEDS: polyethylene glycoL POWDER 17 GM (MIRALAX) PACK PO SCH ×2 (08:26→20:23)
[2020-10-11] MEDS: SALIVA STIMULANT MOUTH SPRAY (BIOTENE) 1.5 OZ MM SCH ×3 (08:27→20:23)
[2020-10-11] MEDS: FLUTICASONE NASAL SPRAY (FLONASE) 16 GM BTL NS SCH ×2 (08:27→20:23)
[2020-10-11] MEDS: NYSTATIN CREAM (MYCOSTATIN) 30 GM TUBE TP SCH ×3 (08:27→20:24)
--- NOTE | 2020-10-11 08:46 | Diagnostic Imaging Report ---
INDICATION: Shortness of breath Portable chest 4:42 AM There are interstitial infiltrates in both lungs with some alveolar consolidation in the left lower lung. Left upper extremity PICC line tip projects over the SVC. IMPRESSION: Severe diffuse bilateral pulmonary infiltrates. This is unchanged from 10/08/2020. Dictated by: Dictated on workstation # [id number]
--- NOTE | 2020-10-11 09:13 | Cardiology Progress Note ---
Subjective Date Seen by Provider: Oct 11, 2020 Time Seen by Provider: 09:12 Subjective/Events-last exam patient is laying down in bed, feeling better, still on Vapotherm but reporting improvement in his breathing. Review of Systems General: No Chills, No Night Sweats; Fatigue, Malaise; No Appetite, No Other HEENT: No Head Aches, No Visual Changes, No Eye Pain, No Ear Pain, No Dysphasia, No Sinus Congestion, No Post Nasal Drip, No Sore Throat, No Other Pulmonary: Dyspnea; No Cough, No Pleuritic Chest Pain, No Other Cardiovascular: No: Chest Pain, Palpitations, Orthopnea, Paroxysmal Noc. Dyspnea, Edema, Lt Headedness, Other Objective-Cardiology Exam Last Set of Vital Signs Vital Signs 10/11/20 10/11/20 10/11/20 04:00 06:37 08:21 Temp 36.8 Pulse 97 Resp 20 B/P (MAP) 147/74 (98) Pulse Ox 92 O2 Delivery Vapotherm O2 Flow Rate 15.00 40.00 FiO2 40 Capillary Refill : Less Than 3 Seconds I&O Intake and Output 10/11/20 00:00 Intake Total 1725 ml Output Total 850 ml Balance 875 ml Intake Oral 1725 ml Output Urine Total 850 ml # Bowel Movements 1 General: Alert, Oriented X3, Cooperative, Moderate Distress HEENT: Atraumatic, PERRLA Neck: Supple, No JVD, No Thyromegaly Lungs: Clear to Auscultation, Normal Air Movement Heart: Regular Rate, Normal S1, Normal S2 Abdomen: Normal Bowel Sounds Extremities: No Edema Skin: No Rashes, No Significant Lesion Neuro: Normal Speech, Cranial Nerves 3-12 NL Psych/Mental Status: Mental Status NL Results Lab Laboratory Tests 10/11/20 05:10 A/P-Cardiology Admission Diagnosis Pneumonia Anemia PAF DM Assessment/Plan Pneumonia, 5 lobes infiltrate, receiving antibiotic, managed by primary care team Anemia of undetermined etiology - underwent EGD showing mild gastritis. continue to monitor H&H Questionable history of pulmonary embolism, patient reporting hospitalization in [place] last year with pulmonary embolism, maintained on oral anticoagulation PAF, currently sinus rhythm, OAC with warfarin, continue to monitor INR EKG of 09-29-2020 showed RBBB of unknown length of time Echocardiogram of Sep 28, 2020 showed LVEF 55-65%. PASP 25-30mmHg DM 2, followed and managed by primary care physician CKD 3, continue to monitor Gen weakness from long-term illness - management per Dr. Perez Clinical Quality Measures DVT/VTE Risk/Contraindication: Risk Factor Score Per Nursin RFS Level Per Nursing on Admit: 4+=Very High Contraindications-Pharm: Other *list below* Other: ANIKA CASTRO MD Oct 11, 2020 09:13
--- NOTE | 2020-10-11 11:14 | Progress Note - Hospitalist ---
REBA KING MED STUDENT 10/11/20 1114: Subjective HPI/CC On Admission Date Seen by Provider: Oct 11, 2020 Time Seen by Provider: 09:15 CC: Dyspnea HPI: This is an 80yoWM who was transferred from [facility] to 4th floor then to [facility] due to revoking DNR status from [facility] who is currently on broad spectrum abx and on max Vapotherm at 40 liters and 100% Patient currently asking me what his chances of recovery is and after a heartfelt conversation I told him low probability of recovery. Palliative care nurse consulted. 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 He acquired B/L pneumonia, placed on Meropenem and Vancomycin. Dr. Gamble was consulted. Oxygen supplementation was maintained and close monitoring with IV Lasix and IV steroids. He had a drop in Hgb requiring transfusion. Dr. Smith was consulted. EGD and colonoscopy were planned EGD revealed no source of bleeding but colonoscopy was not a good prep so it was unable to be done and attempted again today and the decision was made because of his oxygen requirement that he would be unable to proceed on with the colonoscopy considering his advanced and rapid progression with ABG hypoxemia 49 with normal pH he was transferred up to 4th floor. He remains a DNR as he had placed at [facility]. I did talk to Vanessa his daughter in depth for the second time today regarding his status that was rapidly deteriorating. Dr. Gamble saw him in a consultation and agreed with the plan but his prognosis remained very guarded and she had been reporting two izaiah es he was in poor prognosis before but he has little reserve and significant hypoxemia requiring Vapotherm. The prognosis is very poor. Subjective/Events-last exam vaportherm was at 40% today but looking to get off of it by the end of the day seemed concerned with how his lungs are healing WBC was still elevated at 12.9 had a difficult time with his O2 dropping into the 80's during PT Review of Systems Pulmonary: Dyspnea Focused Exam Respiratory: Chest Non Tender, Respiratory Distress Cardiovascular: Regular Rate, Rhythm, No Edema, No Gallop, No JVD, No Murmur, Normal Peripheral Pulses Skin: normal color, warm/dry Objective Exam Vital Signs Vital Signs Date Time Temp Pulse Resp B/P (MAP) Pulse Ox O2 Delivery O2 Flow Rate FiO2 10/11/20 08:21 97 20 147/74 (98) Vapotherm 15.00 40.00 10/11/20 08:00 70 10/11/20 06:37 92 10/11/20 04:00 36.8 Capillary Refill : Less Than 3 Seconds General Appearance: No Apparent Distress, WD/WN HEENT: PERRL/EOMI Neck: Full Range of Motion Respiratory: Chest Non Tender, Respiratory Distress Cardiovascular: Regular Rate, Rhythm, No Edema, No Gallop, No JVD, No Murmur, Normal Peripheral Pulses Gastrointestinal: Normal Bowel Sounds, Non Tender Extremity: Normal Capillary Refill, Normal Inspection Neurologic/Psychiatric: Alert, Oriented x3, No Motor/Sensory Deficits, Normal Mood/Affect Skin: Normal Color, Warm/Dry Lymphatic: No Adenopathy Results/Procedures Lab Laboratory Tests 10/11/20 05:10 Patient resulted labs reviewed. Imaging: Reviewed Imaging Report Assessment/Plan Assessment and Plan Assess & Plan/Chief Complaint Assessment: Respiratory insufficiency Plan: 10/10 begin PT/OT continue decreasing vapotherm look into possible senior living transfer 10/11 continue utilizing PT/OT and incorporate resistance bands continue decreasing vapotherm move to 4th floor continue looking into possible senior living transfer Time spent with patient (mins): 15 Diagnosis/Problems Diagnosis/Problems (1) Respiratory insufficiency Clinical Quality Measures DVT/VTE Risk/Contraindication: Risk Factor Score Per Nursin RFS Level Per Nursing on Admit: 4+=Very High Contraindications-Pharm: Other *list below* Other: [facility] Supervisory-Addendum Brief Verification & Attestation Participated in pt care: history, physical Personally performed: exam, history Care discussed with: Medical Student Procedures: n/a MARISSA JONES DO 10/12/20 0441: Subjective Subjective/Events-last exam Pt now doing a lot better Pt now on 40% Vapotherm Will try to wean down oxygen today Meropenem and Vanc maintained along with Solumedrol and Lasix INR 3.0 will restart Coumadin WBC 12.9 Needs senior living placement HGB 8.5 Review of Systems General: Fatigue, Malaise Pulmonary: Dyspnea Objective Exam General Appearance: No Apparent Distress, WD/WN, Chronically ill, Obese Respiratory: Lungs Clear Cardiovascular: Regular Rate, Rhythm Neurologic/Psychiatric: Alert, Oriented x3, No Motor/Sensory Deficits, Normal Mood/Affect Assessment/Plan Assessment and Plan Assess & Plan/Chief Complaint 10/11/20: PT OT Wean Vapotherm Labs reviewed Supervisory-Addendum Brief Verification & Attestation Participated in pt care: history, MDM, physical Personally performed: exam, history, MDM, supervision of care Care discussed with: Medical Student Procedures: n/a Results interpretation: Verified all documentation Verification and Attestation of Medical Student E/M Service A medical student performed and documented this service in my presence. I reviewed and verified all information documented by the medical student and made modifications to such information, when appropriate. I personally performed the physical exam and medical decision making. Marissa Jones, Oct 12, 2020,04:41 REBA KING MED STUDENT Oct 11, 2020 11:14 MARISSA JONES DO Oct 12, 2020 04:41
--- NOTE | 2020-10-11 11:28 | Physical Therapy Daily Note ---
PT Daily Note-Current Subjective Patient in bed pre tx, agrees to PT, has no complaints of pain, states he is feeling a lot better. Appearance Patient in bed post tx with nurse call, phone, tray, laying on left side with pillow support for pressure relief. Mental Status Patient Orientation: Normal For Age Attachments: Oxygen vapotherm Transfers SCALE: Activities may be completed with or without assistive devices. 8-Zrngwkjkii-ewkrhoy completes the activity by him/herself with no assistance from a helper. 5-Set-up or Clean-up Assistance-helper sets up or cleans up; patient completes activity. [place] assists only prior to or following the activity. 4-Supervision or Touching Assistance-helper provides verbal cues and/or touching/steadying and/or contact guard assistance as patient completes activity. Assistance may be provided throughout the activity or intermittently. 3-Partial/Moderate Assistance-helper does LESS THAN HALF the effort. [place] lifts, holds or supports trunk or limbs, but provides less than half the effort. 2-Substantial/Maximal Assistance-helper does MORE THAN HALF the effort. [place] lifts or holds trunk or limbs and provides more than half the effort. 3-Djxvyvupk-akcmec does ALL the effort. Patient does none of the effort to complete the activity. Or, the assistance of 2 or more helpers is required for the patient to complete the activity. If activity was not attempted, code reason: 7-Patient Refused. 9-Not Applicable-not attempted and the patient did not perform the activity before the current illness, exacerbation or injury. 10-Not Attempted due to Environmental Limitations-(lack of equipment, weather restraints, etc.). 88-Not Attempted due to Medical Conditions or Safety Concerns. Roll Left & Right (QC): 3 Sit to Lying (QC): 3 Lying to Sitting/Side of Bed(Q: 3 min assist for rolling, mod assist for supine <-> sit. Patient sat on the side of the bed for about 10 min, O2 decreases with activity but comes back up shortly with rest and purse lip breathing. Exercises Seated Therapy Exercises: Ankle pumps, Long arc quads Seated Reps: 20 Treatments bed mobility, sitting, LE exercise Assessment Current Status: Fair Progress Improved from yesterday, but patient needs frequent rest breaks (after every activity or exercise), O2 drops to upper 80's but comes back into the 90's with rest and purse lip breathing. 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 Snf Goals PT Snf Goals Time Frame: Nov 05, 2020 Roll Left & Right (QC): 3 Sit to Lying (QC): 3 Lying-Sitting on Side/Bed(QC): 3 Sit to Stand (QC): 2 Chair/Wma-bx-Qhbjh Xfer(QC): 2 PT Plan Problem List Problem List: Activity Tolerance, Functional Strength, Safety, Balance, Gait, Transfer, Bed Mobility, ROM Treatment/Plan Treatment Plan: Continue Plan of Care Treatment Plan: Bed Mobility, Education, Functional Activity [place]ston, Functional Strength, Safety, Therapeutic Exercise, Transfers Treatment Duration: Nov 05, 2020 Frequency: 6 times per week Estimated Hrs Per Day: .5 hour per day Patient and/or Family Agrees t: Yes Safety Risks/Education Patient Education: Correct Positioning, Safety Issues Teaching Recipient: Patient Teaching Methods: Demonstration, Discussion Response to Teaching: Reinforcement Needed Time/GCodes Time In: 1102 Time Out: 1120 Total Billed Treatment Time: 18 Total Billed Treatment 1 visit FA CLAYTON JOSE PT Oct 11, 2020 11:28
--- NOTE | 2020-10-11 11:37 | Occupational Ther Daily Note ---
OT Current Status-Daily Note Subjective Pt AxO upon entry. Very pleasant. Pt on vapotherm. No apparent distress, denies pain. States sore on bottom feels better. Agrees to tx. Mental Status/Objective Patient Orientation: Person, Place, Situation, Normal For Age Attachments: Oxygen, Telemetry ADL-Treatment Therapy Code Descriptions/Definitions Functional [place] Measure: 0=Not Assessed/NA 4=Minimal Assistance 1=Total Assistance 5=Supervision or Setup 2=Maximal Assistance 6=Modified Mora 3=Moderate Assistance 7=Complete IndependenceSCALE: Activities may be completed with or without assistive devices. 7-Rphjohfnld-tcqiopy completes the activity by him/herself with no assistance from a helper. 5-Set-up or Clean-up Assistance-helper sets up or cleans up; patient completes activity. [place] assists only prior to or following the activity. 4-Supervision or Touching Assistance-helper provides verbal cues and/or touching/steadying and/or contact guard assistance as patient completes activity. Assistance may be provided throughout the activity or intermittently. 3-Partial/Moderate Assistance-helper does LESS THAN HALF the effort. [place] lifts, holds or supports trunk or limbs, but provides less than half the effort. 2-Substantial/Maximal Assistance-helper does MORE THAN HALF the effort. [place] lifts or holds trunk or limbs and provides more than half the effort. 0-Wuxorswze-fpsyfd does ALL the effort. Patient does none of the effort to complete the activity. Or, the assistance of 2 or more helpers is required for the patient to complete the activity. If activity was not attempted, code reason: 7-Patient Refused. 9-Not Applicable-not attempted and the patient did not perform the activity before the current illness, exacerbation or injury. 10-Not Attempted due to Environmental Limitations-(lack of equipment, weather restraints, etc.). 88-Not Attempted due to Medical Conditions or Safety Concerns. Eating (QC): 6 Bathing Location: L Arm, R Arm, L Upper Leg, R Upper Leg, Chest, Abdomen, Perineal Area Shower/Bathe Self (QC): 3 (mod A: pt requires assist with bottom/ BLEs. Pt completes EOB, rolls in bed to complete bottom hygiene and brief donning.) Upper Body Dressing (QC): 5 Lower Body Dressing (QC): 1 (TD due to OT threading BLE and assist to roll in order to bring over hips in bed. ) Toileting Hygiene (QC): 2 (Pt completes natasha care, assist in bed for rollling and completing bottom hygiene.) Other Treatment Pt supine in bed/ watching TV. Agrees to tx. Pt's 02 at 100% upon entry. Pt supine to sit with increased time and mod A x2. Pt sits upright to complete LE ex with PT direction. OT addresses ADLs, pt agrees to sponge bath, completing EOB and rolling in bed as outlined. Pt's 02 decreases <83%->95% during tx. Pt returns to supine/ HOB elevated. Pt denies needs, call light in reach, pt's nurse present. Education OT Patient Education: Correct positioning, Modified ADL techniques, Purpose of tx/functional activities, Safety issues Teaching Recipient: Patient Teaching Methods: Demonstration, Discussion Response to Teaching: Verbalize Understanding, Return Demonstration OT Prison Goals Prison Goals Time Frame: Oct 24, 2020 Eating (QC): 6 Oral Hygiene (QC): 6 Toileting Hygiene (QC): 2 Shower/Bathe Self (QC): 3 Upper Body Dressing (QC): 4 Lower Body Dressing (QC): 2 On/Off Footwear (QC): 2 Additional Goals: 1-Demonstrate ADL Tasks, 2-Verbalize Understanding, 3- ImproveStrength/Aston 1=Demonstrate adherence to instructed precautions during ADL tasks. 2=Patient will verbalize/demonstrate understanding of assistive devices/modifications for ADL. 3=Patient will improve strength/tolerance for activity to enable patient to perform ADL's. OT Education/Plan Problem List/Assessment Assessment: Decreased Activ Tolerance, Decreased UE Strength, Dependent Transfers, Impaired Bed Mobility, Impaired Funct Balance, Impaired I ADL's, Impaired Self-Care Skills Discharge Recommendations Plan/Recommendations: Continue POC Therapy Discharge Recommendati: 24 Hour Supervision, Post Acute OT Treatment Plan/Plan of Care Treatment,Training & Education: Yes Patient would benefit from OT for education, treatment and training to promote independence in ADL's, mobility, safety and/or upper extremity function for ADL's. Plan of Care: ADL Retraining, Caregiver Training, Functional Mobility, Group Exercise/Act as Ind, UE Funct Exercise/Act, UE Neuromus Re-Ed/Coord Treatment Duration: Oct 24, 2020 Frequency: 5 times per week Estimated Hrs Per Day: .25 hour per day Agreement: Yes Rehab Potential: Guarded Time/GCodes Start Time: 11:00 Stop Time: 11:20 Total Time Billed (hr/min): 20 Billed Treatment Time 1, ADL GREG VEGAS OTR Oct 11, 2020 11:37
--- NOTE | 2020-10-11 12:11 | Pulmonary Progress Note ---
Subjective Time Seen by a Provider: 12:07 Sepsis Event Evaluation Height, Weight, BMI Height: '" Weight: lbs. oz. kg; 27.92 BMI Method: Exam Exam Vital Signs Date Time Temp Pulse Resp B/P (MAP) Pulse Ox O2 Delivery O2 Flow Rate FiO2 10/11/20 11:42 87 10/11/20 08:21 97 20 147/74 (98) Vapotherm 15.00 40.00 10/11/20 08:00 Vapotherm 20.00 70 10/11/20 07:16 97 10/11/20 06:37 92 Vapotherm 25.00 40 10/11/20 04:00 36.8 81 18 138/61 (86) 98 Vapotherm 20.00 40.00 10/11/20 01:37 98 Vapotherm 25.00 45 10/11/20 01:00 82 10/11/20 00:56 36.3 83 133/59 (83) 96 Vapotherm 25.00 45.00 10/10/20 21:36 97 Vapotherm 25.00 50 10/10/20 20:45 Vapotherm 20.00 70 10/10/20 19:40 36.8 89 22 141/64 (89) 93 Vapotherm 25.00 50.00 10/10/20 19:00 89 10/10/20 18:51 92 Vapotherm 25.00 50 10/10/20 15:44 36.9 78 15 145/61 (89) 97 Vapotherm 20.00 70.00 10/10/20 15:17 98 Vapotherm 25.00 80 10/10/20 12:49 74 I & O 10/11/20 07:00 Intake Total 2025 ml Output Total 850 ml Balance 1175 ml Height & Weight Height: '" Weight: lbs. oz. kg; 27.92 BMI Method: General Appearance: No Apparent Distress, WD/WN HEENT: PERRL/EOMI Neck: Full Range of Motion Respiratory: Chest Non Tender, Respiratory Distress Cardiovascular: Regular Rate, Rhythm, No Edema, No Gallop, No JVD, No Murmur, Normal Peripheral Pulses Capillary Refill: Less Than 3 Seconds Gastrointestinal: non tender, soft, no organomegaly Extremity: Normal Capillary Refill, Normal Inspection Neurologic/Psychiatric: Alert, Oriented x3, No Motor/Sensory Deficits, Normal Mood/Affect Skin: Normal Color, Warm/Dry Lymphatic: No Adenopathy Results Lab Laboratory Tests 10/10/20 06:00 10/11/20 05:10 Assessment/Plan Assessment/Plan Acute respiratory failure with hypoxia -on Vapotherm 40% FiO2 -on Solumedrol -- Decrease to Q12 Duoneb Pneumonia -on Merrem and Vanc Anemia with mild gastritis per EGD -Hgb stable -Monitor PAF -Cardiology following -on Warfarin DVT/GI ppx -on Warfarin -on Protonix BRIDGETTE PÉREZ DO Oct 11, 2020 12:11
--- NOTE | 2020-10-11 15:30 | NUR ---
CM/SS visited with patient for discharge planning. The patient was lying in bed watching tv at time of visit. He reports that he is doing well today. CM/SS introduced self and explained this sw role for discharge planning. He verbalized understanding. He reports he is not ready to discharge just yet due to his current oxygen need. Home: The patient was living at home alone in [place] prior to his first hospital admission. Since then he has been to [facility], [facility], and then [facility] inpatient rehab. He then had to be transferred to the floor due to a worsening respiratory status. The patient plans to stay with his daughter here in town when he is able to return home. SNF: CM/SS discussed the option of a [facility] facility with the patient. He reports that at this time that is not an option because he does not have very good kannan in them. The patient reports his ran the [facility] and he heard all the stories. CM/S explained that it is for short term stay and not fdc due to patient's concern. He feels that it is for old people and they will not do the therapy they are supposed to. IRF: The patient reports he would like this sw to make a referral back to the inpatient rehab here at the hospital as his first choice. CM/SS contacted [facility] with rehab who is evaluating the patient. Awaiting acceptance/denial. The patient would like me to search out different inpatient rehab facilities if the hospital denies. Caregivers: CM/SS discussed caregivers and the process of getting them per patient request. Patient verbalized understanding and will think about it. CM/SS will continue to follow.
[2020-10-11] MEDS: warFARin 1 MG (COUMADIN) TAB PO SCH (17:38)
[2020-10-11] MEDS ORDERED: inSUlin ASPART (NovoLOG) 1 UNIT/0.01 ML (CHARGE PER UNIT) ONE (20:16)
[2020-10-12 03:00] VITALS: BP 130/68
[2020-10-12 03:05] LABS: BASOPHILS % (AUTO) 0 % (0-10); EOSINOPHILS % (AUTO) 0 % (0-10); HEMATOCRIT 28 % (40-54); HEMOGLOBIN 8.4 g/dL (13.3-17.7); LYMPHOCYTES # (AUTO) 0.5 10^3/uL (1.0-4.0); LYMPHOCYTES % (AUTO) 4 % (12-44); MEAN CORPUSCULAR HEMOGLOBIN 29 pg (25-34); MEAN CORPUSCULAR HGB CONC 31 g/dL (32-36); MEAN CORPUSCULAR VOLUME 96 fL (80-99); MEAN PLATELET VOLUME 10.7 fL (9.0-12.2); MONOCYTES # (AUTO) 0.4 10^3/uL (0.0-1.0); MONOCYTES % (AUTO) 3 % (0-12); NEUTROPHILS # (AUTO) 11.6 10^3/uL (1.8-7.8); NEUTROPHILS % (AUTO) 92 % (42-75); PLATELET COUNT 230 10^3/uL (130-400); WHITE BLOOD COUNT 12.6 10^3/uL (4.3-11.0)
[2020-10-12 03:12] LABS: ALBUMIN 2.4 GM/DL (3.2-4.5); INR 2.5 (0.8-1.4); POTASSIUM 4.6 MMOL/L (3.6-5.0); PROTHROMBIN TIME PATIENT 27.4 SEC (12.2-14.7)
[2020-10-12 03:13] LABS: CALCIUM 7.4 MG/DL (8.5-10.1)
[2020-10-12 03:14] LABS: TOTAL PROTEIN 4.8 GM/DL (6.4-8.2)
[2020-10-12 03:16] LABS: BILIRUBIN,TOTAL 0.4 MG/DL (0.1-1.0)
[2020-10-12 03:18] LABS: CREATININE SERUM 1.2 MG/DL (0.60-1.30)
--- NOTE | 2020-10-12 06:00 | Pulmonary Progress Note ---
Subjective Time Seen by a Provider: 06:00 Subjective/Events-last exam No complications noted. Sepsis Event Evaluation Height, Weight, BMI Height: '" Weight: lbs. oz. kg; 27.92 BMI Method: Exam Exam Vital Signs Date Time Temp Pulse Resp B/P (MAP) Pulse Ox O2 Delivery O2 Flow Rate FiO2 10/12/20 05:06 High Flow N/C 2.00 10/12/20 03:00 36.2 68 16 130/68 (88) 94 High Flow N/C 3.00 10/12/20 01:00 64 10/11/20 23:17 36.3 74 18 155/73 (100) 100 High Flow N/C 3.00 10/11/20 21:34 High Flow N/C 5.00 10/11/20 20:41 High Flow N/C 6.00 10/11/20 20:00 High Flow N/C 6.00 10/11/20 19:44 36.4 66 16 124/60 (81) 100 Vapotherm 10/11/20 19:04 100 Nasal Cannula 7.00 10/11/20 19:00 78 10/11/20 16:25 36.4 75 14 149/62 (91) 100 High Flow N/C 8.00 10/11/20 14:00 86 18 145/70 (95) 100 Vapotherm 15.00 40.00 10/11/20 12:46 98 Vapotherm 15.00 40 10/11/20 12:00 36.6 93 18 154/74 (100) Vapotherm 15.00 40.00 10/11/20 11:42 87 10/11/20 08:21 97 20 147/74 (98) Vapotherm 15.00 40.00 10/11/20 08:00 Vapotherm 20.00 70 10/11/20 07:16 97 10/11/20 06:37 92 Vapotherm 25.00 40 I & O 10/12/20 07:00 Intake Total 900 ml Output Total 1950 ml Balance -1050 ml Height & Weight Height: '" Weight: lbs. oz. kg; 27.92 BMI Method: General Appearance: No Apparent Distress, WD/WN, Chronically ill, Obese HEENT: PERRL/EOMI Neck: Full Range of Motion Respiratory: Lungs Clear Cardiovascular: Regular Rate, Rhythm Capillary Refill: Less Than 3 Seconds Gastrointestinal: non tender, soft, no organomegaly Extremity: Normal Capillary Refill, Normal Inspection Neurologic/Psychiatric: Alert, Oriented x3, No Motor/Sensory Deficits, Normal Mood/Affect Skin: Normal Color, Warm/Dry Lymphatic: No Adenopathy Results Lab Laboratory Tests 10/11/20 05:10 10/12/20 02:52 Assessment/Plan Assessment/Plan Acute respiratory failure with hypoxia -on Vapotherm 40% FiO2 -on Solumedrol -- Decrease to Q12 Duoneb Pneumonia -on Merrem and Vanc Anemia with mild gastritis per EGD -Hgb stable -Monitor PAF -Cardiology following -on Warfarin DVT/GI ppx -on Warfarin -on Protonix BRIDGETTE PÉREZ DO Oct 12, 2020 06:00
[2020-10-12] MEDS: inSUlin ASPART (NovoLOG) 1 UNIT/0.01 ML (CHARGE PER UNIT) SC SCH ×4 (06:04→21:41)
[2020-10-12] MEDS: MEROPENEM 500 MG in WATER (STERILE) FOR INJECTION 10 ML IV SCH ×4 (06:04→23:05)
[2020-10-12 07:22] VITALS: BP 140/69
[2020-10-12] MEDS: SENNA W/DOCUSATE (SENOKOT S) TABLET PO SCH ×2 (08:42→21:38)
[2020-10-12] MEDS: MULTIVIT W/MINERALS TAB (THERAGRAN M) PO SCH (08:42)
[2020-10-12] MEDS: PANTOPRAZOLE 40 MG (PROTONIX) TAB PO SCH ×2 (08:43→21:38)
[2020-10-12] MEDS: polyethylene glycoL POWDER 17 GM (MIRALAX) PACK PO SCH ×2 (08:44→21:42)
[2020-10-12] MEDS: FUROSEMIDE 40 MG/4 ML INJ (LASIX) IV SCH (08:44)
[2020-10-12] MEDS: methylPREDNISolone 40 MG/ML (Solu-MEDROL) VIAL IV SCH ×2 (08:44→21:34)
[2020-10-12] MEDS: FLUTICASONE NASAL SPRAY (FLONASE) 16 GM BTL NS SCH ×2 (08:44→21:43)
[2020-10-12] MEDS: FOLIC ACID 1 MG TAB PO SCH (08:44)
[2020-10-12] MEDS: NYSTATIN ORAL SUSP 5 ML UDC PO SCH ×4 (08:44→21:42)
[2020-10-12] MEDS: SALIVA STIMULANT MOUTH SPRAY (BIOTENE) 1.5 OZ MM SCH ×3 (08:45→21:43)
[2020-10-12] MEDS: NYSTATIN CREAM (MYCOSTATIN) 30 GM TUBE TP SCH ×3 (08:46→21:38)
--- NOTE | 2020-10-12 09:52 | Physical Therapy Daily Note ---
PT Daily Note-Current Subjective Patient in bed pre tx, agrees to PT, has no complaints of pain at rest. Appearance Patient in recliner post tx with nurse call, phone, tray, all needs met, legs elevated, xu sling under patient in case they need it to get him back to bed. Mental Status Patient Orientation: Normal For Age Attachments: Oxygen Transfers SCALE: Activities may be completed with or without assistive devices. 4-Gipsqddsia-puzdkcp completes the activity by him/herself with no assistance from a helper. 5-Set-up or Clean-up Assistance-helper sets up or cleans up; patient completes activity. [place] assists only prior to or following the activity. 4-Supervision or Touching Assistance-helper provides verbal cues and/or touching/steadying and/or contact guard assistance as patient completes activity. Assistance may be provided throughout the activity or intermittently. 3-Partial/Moderate Assistance-helper does LESS THAN HALF the effort. [place] lifts, holds or supports trunk or limbs, but provides less than half the effort. 2-Substantial/Maximal Assistance-helper does MORE THAN HALF the effort. [place] lifts or holds trunk or limbs and provides more than half the effort. 8-Jecnrakpg-xotewc does ALL the effort. Patient does none of the effort to complete the activity. Or, the assistance of 2 or more helpers is required for the patient to complete the activity. If activity was not attempted, code reason: 7-Patient Refused. 9-Not Applicable-not attempted and the patient did not perform the activity before the current illness, exacerbation or injury. 10-Not Attempted due to Environmental Limitations-(lack of equipment, weather restraints, etc.). 88-Not Attempted due to Medical Conditions or Safety Concerns. Roll Left & Right (QC): 3 Lying to Sitting/Side of Bed(Q: 3 Sit to Stand (QC): 2 Chair/Ybh-qj-Yjwor Xfer(QC): 2 Exercises Seated Therapy Exercises: Ankle pumps, Long arc quads Seated Reps: 20 Treatments bed mobility and transfers, LE exercise Assessment Current Status: Fair Progress O2 goes to upper 80's with activity but comes back up to low 90's with purse lip breathing PT Supervisor [place] Goals Supervisor [place] Goals PT Residential Goals Time Frame: Nov 05, 2020 Roll Left & Right (QC): 3 Sit to Lying (QC): 3 Lying-Sitting on Side/Bed(QC): 3 Sit to Stand (QC): 2 Chair/Fqi-ee-Vahwl Xfer(QC): 2 PT Plan Problem List Problem List: Activity Tolerance, Functional Strength, Safety, Balance, Gait, Transfer, Bed Mobility, ROM Treatment/Plan Treatment Plan: Continue Plan of Care Treatment Plan: Bed Mobility, Education, Functional Activity [place], Functional Strength, Safety, Therapeutic Exercise, Transfers Treatment Duration: Nov 05, 2020 Frequency: 6 times per week Estimated Hrs Per Day: .5 hour per day Patient and/or Family Agrees t: Yes Safety Risks/Education Patient Education: Transfer Techniques, Correct Positioning, Safety Issues Teaching Recipient: Patient Teaching Methods: Demonstration, Discussion Response to Teaching: Reinforcement Needed Time/GCodes Time In: 906 Time Out: 920 Total Billed Treatment Time: 14 Total Billed Treatment 1 visit FA CLAYTON DAVIES PT Oct 12, 2020 09:52
[2020-10-12] MEDS: RT-ALBUTEROL/IPRATROPIUM 3 ML (DUONEB) VIAL IH SCH ×4 (10:47→18:27)
--- NOTE | 2020-10-12 10:48 | NUR ---
PALLIATIVE CARE RN received text from patient's daughter, Vanessa. Returned a call to her to update her on patient's condition and the various discussed discharge plans. She is aware that he does not want to be in a SNF and would rather go back to our or another rehab facility to get stronger. She reports that he does want to eventually come to her home but he will need to be near independent level of functioning because she works during the day. At this time [facility] is looking at him for readmission. Addendum: 10/12/20 at 1356 by MILLY NICHOLAS RN 11:30 called Dane, patient's son after having gone to see patient. Updated Dane on patients current status much like the above noted conversation with daughter, Vanessa.
--- NOTE | 2020-10-12 10:49 | Cardiology Progress Note ---
Subjective Date Seen by Provider: Oct 12, 2020 Time Seen by Provider: 10:48 Subjective/Events-last exam Patient is sitting in a chair, feeling better, reporting improvement. Review of Systems General: No Chills, No Night Sweats; Fatigue, Malaise; No Appetite, No Other HEENT: No Head Aches, No Visual Changes, No Eye Pain, No Ear Pain, No Dysphasia, No Sinus Congestion, No Post Nasal Drip, No Sore Throat, No Other Pulmonary: Dyspnea; No Cough, No Pleuritic Chest Pain, No Other Cardiovascular: No: Chest Pain, Palpitations, Orthopnea, Paroxysmal Noc. Dyspnea, Edema, Lt Headedness, Other Objective-Cardiology Exam Last Set of Vital Signs Vital Signs 10/11/20 10/12/20 10/12/20 12:46 07:22 08:00 Temp 36.5 Pulse 58 Resp 13 B/P (MAP) 140/69 (92) Pulse Ox 96 O2 Delivery High Flow N/C O2 Flow Rate 5.00 FiO2 40 Capillary Refill : Less Than 3 Seconds I&O Intake and Output 10/12/20 00:00 Intake Total 1250 ml Output Total 1800 ml Balance -550 ml Intake Oral 1250 ml Output Urine Total 1800 ml General: Alert, Oriented X3, Cooperative, Moderate Distress HEENT: Atraumatic, PERRLA Neck: Supple, No JVD, No Thyromegaly Lungs: Clear to Auscultation, Normal Air Movement Heart: Regular Rate, Normal S1, Normal S2 Abdomen: Normal Bowel Sounds Extremities: No Edema Skin: No Rashes, No Significant Lesion Neuro: Normal Speech, Cranial Nerves 3-12 NL Psych/Mental Status: Mental Status NL Results Lab Laboratory Tests 10/12/20 02:52 A/P-Cardiology Admission Diagnosis Pneumonia Anemia PAF DM Assessment/Plan Pneumonia, 5 lobes infiltrate, receiving antibiotic, managed by primary care team Acute on chronic respiratory failure was on Vapotherm, improving slowly, managed by Dr. Gamble Anemia of undetermined etiology - underwent EGD showing mild gastritis. 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 PASP 25-30mmHg DM 2, followed and managed by primary care physician CKD 3, continue to monitor Gen weakness from long-term illness - management per Dr. Perez Clinical Quality Measures DVT/VTE Risk/Contraindication: Risk Factor Score Per Nursin RFS Level Per Nursing on Admit: 4+=Very High Contraindications-Pharm: Other *list below* Other: ANIKA CASTRO MD Oct 12, 2020 10:49 am
[2020-10-12 11:36] VITALS: BP 153/75
--- NOTE | 2020-10-12 14:16 | Occupational Ther Daily Note ---
OT Current Status-Daily Note Subjective Pt AxO, denies pain. Agree to tx. Pt's nurse in/out through session. Mental Status/Objective Patient Orientation: Person, Place, Situation, Normal For Age Attachments: Oxygen (3L), Telemetry ADL-Treatment Therapy Code Descriptions/Definitions Functional [place] Measure: 0=Not Assessed/NA 4=Minimal Assistance 1=Total Assistance 5=Supervision or Setup 2=Maximal Assistance 6=Modified [place] 3=Moderate Assistance 7=Complete IndependenceSCALE: Activities may be completed with or without assistive devices. 5-Gtcddsfsxs-ealvfha completes the activity by him/herself with no assistance from a helper. 5-Set-up or Clean-up Assistance-helper sets up or cleans up; patient completes activity. [place] assists only prior to or following the activity. 4-Supervision or Touching Assistance-helper provides verbal cues and/or touching/steadying and/or contact guard assistance as patient completes activi ty. Assistance may be provided throughout the activity or intermittently. 3-Partial/Moderate Assistance-helper does LESS THAN HALF the effort. [place] lifts, holds or supports trunk or limbs, but provides less than half the effort. 2-Substantial/Maximal Assistance-helper does MORE THAN HALF the effort. [place] lifts or holds trunk or limbs and provides more than half the effort. 7-Owtyeehjb-djggrx does ALL the effort. Patient does none of the effort to complete the activity. Or, the assistance of 2 or more helpers is required for the patient to complete the activity. If activity was not attempted, code reason: 7-Patient Refused. 9-Not Applicable-not attempted and the patient did not perform the activity before the current illness, exacerbation or injury. 10-Not Attempted due to Environmental Limitations-(lack of equipment, weather restraints, etc.). 88-Not Attempted due to Medical Conditions or Safety Concerns. Eating (QC): 6 Other Treatment Pt completes bed mob min A. Pt sits EOB ~5 min with 02 <90 and gains over 90 within minutes. Pt able to sit to stand/ SPT with assist from PT. Pt's 02 91% end of session. Pt is educated on benefits. OT brings theraband in after treatment, educating pt on exercises. Pt denies questions, all needs met, call light in reach. Education OT Patient Education: Correct positioning, Exercise program, Home exercise program, Transfer techniques Teaching Recipient: Patient Teaching Methods: Demonstration, Discussion Response to Teaching: Verbalize Understanding, Return Demonstration OT Switch Maker Goals Switch Maker Goals Time Frame: Oct 24, 2020 Eating (QC): 6 Oral Hygiene (QC): 6 Toileting Hygiene (QC): 2 Shower/Bathe Self (QC): 3 Upper Body Dressing (QC): 4 Lower Body Dressing (QC): 2 On/Off Footwear (QC): 2 Additional Goals: 1-Demonstrate ADL Tasks, 2-Verbalize Understanding, 3- ImproveStrength/[place] 1=Demonstrate adherence to instructed precautions during ADL tasks. 2=Patient will verbalize/demonstrate understanding of assistive devices/modifications for ADL. 3=Patient will improve strength/tolerance for activity to enable patient to perform ADL's. OT Education/Plan Problem List/Assessment Assessment: Decreased Activ Tolerance, Decreased UE Strength, Dependent Transfers, Edema, Impaired Bed Mobility, Impaired Funct Balance, Impaired I ADL's, Impaired Self-Care Skills Discharge Recommendations Plan/Recommendations: Continue POC Therapy Discharge Recommendati: 24 Hour Supervision, Post Acute OT Treatment Plan/Plan of Care Treatment,Training & Education: Yes Patient would benefit from OT for education, treatment and training to promote independence in ADL's, mobility, safety and/or upper extremity function for ADL's. Plan of Care: ADL Retraining, Caregiver Training, Functional Mobility, Group Exercise/Act as Ind, UE Funct Exercise/Act, UE Neuromus Re-Ed/Coord Treatment Duration: Oct 24, 2020 Frequency: 5 times per week Estimated Hrs Per Day: .25 hour per day Agreement: Yes Rehab Potential: Guarded Time/GCodes Start Time: 09:08 Stop Time: 09:21 Total Time Billed (hr/min): 13 Billed Treatment Time 1, FA (13) GREG VEGAS OTR Oct 12, 2020 14:16
--- NOTE | 2020-10-12 14:51 | NUR ---
THIS NURSE NOTIFIED DR JONES PT BS WAS 438. ORDER GIVEN TO GIVE THE TOP DOSE OF INSULIN PER SCALE. AND TO PASS ON IN REPORT PT IS VERY BRITTLE DIABETIC AND WILL GET SEVERE HYPOGLYCEMIC IF OVER TREATED. WILL CONTINUE TO MONITOR.
--- NOTE | 2020-10-12 15:52 | Progress Note - Hospitalist ---
REBA KING MED STUDENT 10/12/20 1552: Subjective HPI/CC On Admission Date Seen by Provider: Oct 12, 2020 Time Seen by Provider: 09:15 CC: Dyspnea HPI: This is an 80yoWM who was transferred from [facility] to 4th floor then to [facility] due to revoking DNR status from [facility] who is currently on broad spectrum abx and on max Vapotherm at 40 liters and 100% Patient currently asking me what his chances of recovery is and after a heartfelt conversation I told him low probability of recovery. Palliative care nurse consulted. 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 He acquired B/L pneumonia, placed on Meropenem and Vancomycin. Dr. Gamble was consulted. Oxygen supplementation was maintained and close monitoring with IV Lasix and IV steroids. He had a drop in Hgb requiring transfusion. Dr. Smith was consulted. EGD and colonoscopy were planned EGD revealed no source of bleeding but colonoscopy was not a good prep so it was unable to be done and attempted again today and the decision was made because of his oxygen requirement that he would be unable to proceed on with the colonoscopy considering his advanced and rapid progression with ABG hypoxemia 49 with normal pH he was transferred up to 4th floor. He remains a DNR as he had placed at [facility]. I did talk to Vanessa his daughter in depth for the second time today regarding his status that was rapidly deteriorating. Dr. Gamble saw him in a consultation and agreed with the plan but his prognosis remained very guarded and she had been reporting two izaiah es he was in poor prognosis before but he has little reserve and significant hypoxemia requiring Vapotherm. The prognosis is very poor. Subjective/Events-last exam Abhinav was discontinued on vapotherm sitting up in chair when I entered the room using nasal cannula between 3 and 5 L ended up staying on 5th floor step down no complaints of pain or SOB attempted PT but O2 dripped into the 80's again will begin using resistance bands to strengthen arms and legs possible care home transfer Review of Systems Pulmonary: Other (respiratory insuffiency) Focused Exam Respiratory: Chest Non Tender, Respiratory Distress Cardiovascular: Regular Rate, Rhythm, No Edema, No Gallop, No JVD, No Murmur, Normal Peripheral Pulses Skin: normal color, warm/dry Objective Exam Vital Signs Vital Signs Date Time Temp Pulse Resp B/P (MAP) Pulse Ox O2 Delivery O2 Flow Rate FiO2 10/12/20 14:38 92 Nasal Cannula 3.00 10/12/20 12:50 71 10/12/20 11:36 36.4 18 153/75 (101) 10/11/20 12:46 40 Capillary Refill : Less Than 3 Seconds General Appearance: No Apparent Distress, WD/WN HEENT: PERRL/EOMI Neck: Full Range of Motion Respiratory: Chest Non Tender, Respiratory Distress (with movement) Cardiovascular: Regular Rate, Rhythm, No Edema, No Gallop, No JVD, No Murmur, Normal Peripheral Pulses Gastrointestinal: Normal Bowel Sounds Extremity: Normal Capillary Refill, Normal Inspection, No Calf Tenderness Neurologic/Psychiatric: Alert, Oriented x3, No Motor/Sensory Deficits, Normal Mood/Affect, pourer bull ladle II-XII Norm as Tested Skin: Normal Color, Warm/Dry Lymphatic: No Adenopathy Results/Procedures Lab Laboratory Tests 10/12/20 02:52 Patient resulted labs reviewed. Imaging: Reviewed Imaging Report Assessment/Plan Assessment and Plan Assess & Plan/Chief Complaint Assessment: Respiratory insufficiency Plan: 10/10 begin PT/OT continue decreasing vapotherm look into possible care home transfer 10/11 continue utilizing PT/OT continue decreasing vapotherm move to 4th floor continue looking into possible care home transfer 10/12 continue utilizing PT/OT and incorporate resistance bands possible care home transfer continue antibiotics and steroids Time spent with patient (mins): 15 Diagnosis/Problems Diagnosis/Problems (1) Respiratory insufficiency Clinical Quality Measures DVT/VTE Risk/Contraindication: Risk Factor Score Per Nursin RFS Level Per Nursing on Admit: 4+=Very High Contraindications-Pharm: Other *list below* Other: [facility] Supervisory-Addendum Brief Verification & Attestation Participated in pt care: history, physical Personally performed: exam, history Care discussed with: Medical Student Procedures: n/a MARISSA JONES DO 10/13/20 0452: Subjective Subjective/Events-last exam Pt doing pretty well and off Vapotherm on 3-5 liters of oxygen Worked with PT but couldnt walk and any movement at all he desaturates He does not meet criteria to be able to manage three hours of therapy in inpatient rehab Will need skilled care Review of Systems General: Fatigue, Malaise Pulmonary: Dyspnea Objective Exam General Appearance: No Apparent Distress, WD/WN, Chronically ill Respiratory: Lungs Clear, Accessory Muscle Use, Decreased Breath Sounds Cardiovascular: Regular Rate, Rhythm Neurologic/Psychiatric: Alert, Oriented x3, No Motor/Sensory Deficits, Normal Mood/Affect Assessment/Plan Assessment and Plan Assess & Plan/Chief Complaint 10/12/20: Unable to withstand 3 hour requirement for IRF Needs slower recovery at [place] Supervisory-Addendum Brief Verification & Attestation Participated in pt care: history, MDM, physical Personally performed: exam, history, MDM, supervision of care Care discussed with: Medical Student Procedures: n/a Results interpretation: Verified all documentation Verification and Attestation of Medical Student E/M Service A medical student performed and documented this service in my presence. I reviewed and verified all information documented by the medical student and made modifications to such information, when appropriate. I personally performed the physical exam and medical decision making. Marissa Jones, Oct 13, 2020,04:52 REBA KING MED STUDENT Oct 12, 2020 15:52 MARISSA JONES DO Oct 13, 2020 04:52
[2020-10-12 16:00] VITALS: BP 139/69
[2020-10-12] MEDS: warFARin 1 MG (COUMADIN) TAB PO SCH (17:02)
--- NOTE | 2020-10-12 17:09 | NUR ---
CM/SS follow up. Mega spoke with patients son and daughter for an update. CM/SS received answer from [facility] stating they will not take patient back. CM/SS sent an inpatient rehab referral to [facility] and [facility]. [facility] called back and denied patient at this time. [facility] has beds opening early next week. Awaiting acceptance/denial.
[2020-10-12 20:00] VITALS: BP 149/65
[2020-10-12] MEDS: VANCOMYCIN INJECTION 1,250 MG in NS (IVPB) 250 ML IV SCH (21:34)
[2020-10-12 23:06] VITALS: BP 150/72
[2020-10-13 04:41] VITALS: BP 137/67
[2020-10-13 05:05] LABS: BASOPHILS % (AUTO) 0 % (0-10); EOSINOPHILS % (AUTO) 0 % (0-10); HEMATOCRIT 27 % (40-54); HEMOGLOBIN 8.5 g/dL (13.3-17.7); LYMPHOCYTES # (AUTO) 0.5 10^3/uL (1.0-4.0); LYMPHOCYTES % (AUTO) 4 % (12-44); MEAN CORPUSCULAR HEMOGLOBIN 30 pg (25-34); MEAN CORPUSCULAR HGB CONC 32 g/dL (32-36); MEAN CORPUSCULAR VOLUME 94 fL (80-99); MONOCYTES # (AUTO) 0.4 10^3/uL (0.0-1.0); MONOCYTES % (AUTO) 4 % (0-12); NEUTROPHILS # (AUTO) 10.2 10^3/uL (1.8-7.8); NEUTROPHILS % (AUTO) 90 % (42-75); PLATELET COUNT 248 10^3/uL (130-400); WHITE BLOOD COUNT 11.3 10^3/uL (4.3-11.0)
[2020-10-13 05:20] LABS: INR 2.3 (0.8-1.4); PROTHROMBIN TIME PATIENT 25.6 SEC (12.2-14.7)
[2020-10-13] MEDS: inSUlin ASPART (NovoLOG) 1 UNIT/0.01 ML (CHARGE PER UNIT) SC SCH ×4 (05:20→21:39)
[2020-10-13] MEDS: MEROPENEM 500 MG in WATER (STERILE) FOR INJECTION 10 ML IV SCH (05:20)
[2020-10-13 05:28] LABS: ANISOCYTOSIS SLIGHT; LYMPHOCYTES % (MANUAL) 3 %; MONOCYTES % (MANUAL) 4 %; NEUTROPHILS % (MANUAL) 93 %
[2020-10-13 05:29] LABS: ALBUMIN 2.3 GM/DL (3.2-4.5); BILIRUBIN,TOTAL 0.4 MG/DL (0.1-1.0); CALCIUM 7.4 MG/DL (8.5-10.1); CREATININE SERUM 1.18 MG/DL (0.60-1.30); POTASSIUM 4.5 MMOL/L (3.6-5.0); TOTAL PROTEIN 4.5 GM/DL (6.4-8.2)
[2020-10-13] MEDS: RT-ALBUTEROL/IPRATROPIUM 3 ML (DUONEB) VIAL IH SCH ×3 (07:35→20:27)
[2020-10-13 08:00] VITALS: BP 138/61
--- NOTE | 2020-10-13 08:13 | Pulmonary Progress Note ---
Subjective Time Seen by a Provider: 08:12 Sepsis Event Evaluation Height, Weight, BMI Height: '" Weight: lbs. oz. kg; 27.92 BMI Method: Exam Exam Vital Signs Date Time Temp Pulse Resp B/P (MAP) Pulse Ox O2 Delivery O2 Flow Rate FiO2 10/13/20 07:00 80 10/13/20 04:41 36.5 75 18 137/67 (90) 96 High Flow N/C 4.00 10/13/20 01:00 76 10/12/20 23:06 36.8 79 20 150/72 (98) 96 High Flow N/C 4.00 10/12/20 20:15 High Flow N/C 4.00 10/12/20 20:00 36.4 82 20 149/65 (93) 94 High Flow N/C 4.00 10/12/20 19:00 91 10/12/20 18:27 98 Nasal Cannula 5.00 10/12/20 16:00 37.0 96 20 139/69 (92) 90 High Flow N/C 3.00 10/12/20 14:38 92 Nasal Cannula 3.00 10/12/20 12:50 71 10/12/20 11:36 36.4 75 18 153/75 (101) 93 High Flow N/C 3.00 10/12/20 11:02 93 Nasal Cannula 3.00 I & O 10/13/20 07:00 Intake Total 1717.5 ml Output Total 1950 ml Balance -232.5 ml Height & Weight Height: '" Weight: lbs. oz. kg; 27.92 BMI Method: General Appearance: No Apparent Distress, WD/WN, Chronically ill HEENT: PERRL/EOMI Neck: Full Range of Motion Respiratory: Lungs Clear, Accessory Muscle Use, Decreased Breath Sounds Cardiovascular: Regular Rate, Rhythm Capillary Refill: Less Than 3 Seconds Gastrointestinal: non tender, soft, no organomegaly Extremity: Normal Capillary Refill, Normal Inspection, No Calf Tenderness Neurologic/Psychiatric: Alert, Oriented x3, No Motor/Sensory Deficits, Normal Mood/Affect Skin: Normal Color, Warm/Dry Lymphatic: No Adenopathy Results Lab Laboratory Tests 10/12/20 02:52 10/13/20 04:45 Assessment/Plan Assessment/Plan Acute respiratory failure with hypoxia Pt is down to 4 liter NC - Solumedrol -- Decrease Q12 Duoneb Pneumonia -on Merrem and Vanc Anemia with mild gastritis per EGD -Hgb stable -Monitor PAF -Cardiology following -on Warfarin DVT/GI ppx -on Warfarin -on Protonix BRIDGETTE PÉREZ DO Oct 13, 2020 08:13
--- NOTE | 2020-10-13 09:02 | Cardiology Progress Note ---
Subjective Date Seen by Provider: Oct 13, 2020 Time Seen by Provider: 09:01 Subjective/Events-last exam patient was seen at bedside, laying down comfortably, requiring less oxygen, feeling better, still having weakness in his legs Review of Systems General: No Chills, No Night Sweats; Fatigue, Malaise; No Appetite, No Other HEENT: No Head Aches, No Visual Changes, No Eye Pain, No Ear Pain, No Dysphasia, No Sinus Congestion, No Post Nasal Drip, No Sore Throat, No Other Pulmonary: Dyspnea; No Cough, No Pleuritic Chest Pain, No Other Cardiovascular: No: Chest Pain, Palpitations, Orthopnea, Paroxysmal Noc. Dyspnea, Edema, Lt Headedness, Other Objective-Cardiology Exam Last Set of Vital Signs Vital Signs 10/11/20 10/13/20 12:46 08:00 Temp 35.9 Pulse 104 Resp 20 B/P (MAP) 138/61 (86) Pulse Ox 96 O2 Delivery High Flow N/C O2 Flow Rate 4.00 FiO2 40 Capillary Refill : Less Than 3 Seconds I&O Intake and Output 10/13/20 00:00 Intake Total 1377.5 ml Output Total 2050 ml Balance -672.5 ml Intake Oral 1105 ml IV Total 272.5 ml Output Urine Total 2050 ml General: Alert, Oriented X3, Cooperative, Moderate Distress HEENT: Atraumatic, PERRLA Neck: Supple, No JVD, No Thyromegaly Lungs: Clear to Auscultation, Normal Air Movement Heart: Regular Rate, Normal S1, Normal S2 Abdomen: Normal Bowel Sounds Extremities: No Clubbing, No Cyanosis, No Edema Skin: No Rashes, No Significant Lesion Neuro: Normal Speech, Cranial Nerves 3-12 NL Psych/Mental Status: Mental Status NL Results Lab Laboratory Tests 10/13/20 04:45 A/P-Cardiology Admission Diagnosis Pneumonia Anemia PAF DM Assessment/Plan Pneumonia, 5 lobes infiltrate, receiving antibiotic, managed by primary care team Acute on chronic respiratory failure was on Vapotherm, improving slowly, managed by Dr. Gamble Anemia of undetermined etiology - underwent EGD showing mild gastritis. continue to monitor H&H Questionable history of pulmonary embolism, patient reporting hospitalization in [place] last year with pulmonary embolism, maintained on oral anticoagulation PAF, currently sinus rhythm, OAC with warfarin, continue to monitor INR EKG of 09-29-2020 showed RBBB of unknown length of time Echocardiogram of Sep 28, 2020 showed LVEF 55-65%. PASP 25-30mmHg DM 2, followed and managed by primary care physician CKD 3, continue to monitor Gen weakness from long-term illness - management per Dr. Perez Clinical Quality Measures DVT/VTE Risk/Contraindication: Risk Factor Score Per Nursin RFS Level Per Nursing on Admit: 4+=Very High Contraindications-Pharm: Other *list below* Other: ANIKA CASTRO MD Oct 13, 2020 09:02
[2020-10-13] MEDS: methylPREDNISolone 40 MG/ML (Solu-MEDROL) VIAL IV SCH ×2 (09:11→21:39)
[2020-10-13] MEDS: FOLIC ACID 1 MG TAB PO SCH (09:11)
[2020-10-13] MEDS: MULTIVIT W/MINERALS TAB (THERAGRAN M) PO SCH (09:11)
[2020-10-13] MEDS: FUROSEMIDE 40 MG/4 ML INJ (LASIX) IV SCH (09:11)
[2020-10-13] MEDS: PANTOPRAZOLE 40 MG (PROTONIX) TAB PO SCH ×2 (09:11→21:39)
[2020-10-13] MEDS: FLUTICASONE NASAL SPRAY (FLONASE) 16 GM BTL NS SCH ×2 (09:11→21:40)
[2020-10-13] MEDS: SALIVA STIMULANT MOUTH SPRAY (BIOTENE) 1.5 OZ MM SCH ×4 (09:11→21:46)
[2020-10-13] MEDS: NYSTATIN CREAM (MYCOSTATIN) 30 GM TUBE TP SCH ×3 (09:12→21:41)
[2020-10-13] MEDS: polyethylene glycoL POWDER 17 GM (MIRALAX) PACK PO SCH ×2 (09:12→21:41)
[2020-10-13] MEDS: SENNA W/DOCUSATE (SENOKOT S) TABLET PO SCH ×2 (09:12→21:39)
[2020-10-13] MEDS: NYSTATIN ORAL SUSP 5 ML UDC PO SCH ×4 (09:12→21:39)
--- NOTE | 2020-10-13 09:30 | NUR ---
REPORT RECEIVED FROM REYNA DOBBINS, PATIENT ORIENTED TO ROOM, CALL LIGHT WITHIN REACH, DENIES PAIN OR SOB AT THIS TIME, LOWER LEGS EDEMATOUS, 3+, PICC LINE SITE WITHOUT REDNESS OR SWELLING
[2020-10-13 09:45] VITALS: BP 127/62
--- NOTE | 2020-10-13 10:38 | Progress Note - Hospitalist ---
Subjective HPI/CC On Admission Date Seen by Provider: Oct 13, 2020 Time Seen by Provider: 10:00 CC: Dyspnea HPI: This is an 80yoWM who was transferred from [facility] to 4th floor then to [facility] due to revoking DNR status from [facility] who is currently on broad spectrum abx and on max Vapotherm at 40 liters and 100% Patient currently asking me what his chances of recovery is and after a heartfelt conversation I told him low probability of recovery. Palliative care nurse consulted. 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 He acquired B/L pneumonia, placed on Meropenem and Vancomycin. Dr. Gamble was consulted. Oxygen supplementation was maintained and close monitoring with IV Lasix and IV steroids. He had a drop in Hgb requiring transfusion. Dr. Smith was consulted. EGD and colonoscopy were planned EGD revealed no source of bleeding but colonoscopy was not a good prep so it was unable to be done and attempted again today and the decision was made because of his oxygen requirement that he would be unable to proceed on with the colonoscopy considering his advanced and rapid progression with ABG hypoxemia 49 with normal pH he was transferred up to 4th floor. He remains a DNR as he had placed at [facility]. I did talk to Vanessa his daughter in depth for the second time today regarding his status that was rapidly deteriorating. Dr. Gamble saw him in a consultation and agreed with the plan but his prognosis remained very guarded and she had been reporting two times he was in poor prognosis before but he has little reserve and significant hypoxemia requiring Vapotherm. The prognosis is very poor. Subjective/Events-last exam Patient much improved Weaning O2 Abx completed Patient asked to be referred to other inpatient rehab facilities and [facility] has no beds CXR reviewed BM++ Review of Systems General: Fatigue, Malaise Pulmonary: Dyspnea Objective Exam Vital Signs Vital Signs Date Time Temp Pulse Resp B/P (MAP) Pulse Ox O2 Delivery O2 Flow Rate FiO2 10/14/20 03:52 37.1 79 15 156/74 (101) 92 High Flow N/C 4.00 10/11/20 12:46 40 Capillary Refill : Less Than 3 Seconds General Appearance: No Apparent Distress, WD/WN, Chronically ill, Obese Respiratory: No Accessory Muscle Use, No Respiratory Distress, Decreased Breath Sounds Cardiovascular: Regular Rate, Rhythm Results/Procedures Lab Patient resulted labs reviewed. Imaging: Reviewed Imaging Report Assessment/Plan Assessment and Plan Assess & Plan/Chief Complaint Assessment: Acute on chronic respiratory failure Pulmonary fibrosis on CT scan Anemia Severe myopathy Severe weakness Plan: 10/12/20: Unable to withstand 3 hour requirement for IRF Needs slower recovery at [place] 10/13/20: DC abx PT OT Monitor closely Needs NH Needs DNR Diagnosis/Problems Diagnosis/Problems (1) Respiratory insufficiency (2) Warfarin anticoagulation (3) Volume overload (4) Hypoxemia (5) Diabetes mellitus (6) Thrush (7) Atrial fibrillation (8) COPD (chronic obstructive pulmonary disease) (9) Myopathy Status: Acute Clinical Quality Measures DVT/VTE Risk/Contraindication: Risk Factor Score Per Nursin RFS Level Per Nursing on Admit: 4+=Very High Contraindications-Pharm: Other *list below* Other: SAEID FORREST DO Oct 13, 2020 10:38
--- NOTE | 2020-10-13 11:11 | NUR ---
"RD ASSESSMENT PMHx: COPD; pneumonia; afib; GERD; DM; renal failure; PT INTERACTION: Pt was awake and pleasant during nutrition follow-up. Pt states he has been eating well since last assessment. Note avg PO intake 89% x4d, per chart review. Pt states no issues with nausea, vomiting, constipation, or diarrhea since last assessment. Note last BM was 10/13, and pt currently on bowel regimen of senna BID, and miralax BID, per chart review. ABNORMAL NUTRITION-RELATED LAB VALUES LOW: Ca 7.4; Pro 4.5; alb 2.3; HIGH: BUN 50; glu 222; Est. kcal needs: 7441-7524 kcal | 20-25 kcal/kg Est. Pro needs: 74-92 g Pro | 0.8-1.0 g Pro/kg PES STATEMENT: Given current PO intake and appetite, no nutrition diagnosis at this time (NO-1.1). INTERVENTION: Continue with current diet order of CHO 60g/m 3snack diet. Will continue to follow and reassess as pt needs, intake, and status change. Tammy WILLINGHAM, MS RD LD [phone] cell"
[2020-10-13 12:00] VITALS: BP 130/65
--- NOTE | 2020-10-13 12:01 | Occupational Ther Daily Note ---
OT Current Status-Daily Note Subjective No pain reported. Appearance Pt. alert and oriented. Agrees to work with OT. Mental Status/Objective Patient Orientation: Person, Place, Time, Situation ADL-Treatment Therapy Code Descriptions/Definitions Functional Page Measure: 0=Not Assessed/NA 4=Minimal Assistance 1=Total Assistance 5=Supervision or Setup 2=Maximal Assistance 6=Modified Page 3=Moderate Assistance 7=Complete IndependenceSCALE: Activities may be completed with or without assistive devices. 0-Jjifhvsmov-lztnxzz completes the activity by him/herself with no assistance from a helper. 5-Set-up or Clean-up Assistance-helper sets up or cleans up; patient completes activity. Erie assists only prior to or following the activity. 4-Supervision or Touching Assistance-helper provides verbal cues and/or touching/steadying and/or contact guard assistance as patient completes activity. Assistance may be provided throughout the activity or intermittently. 3-Partial/Moderate Assistance-helper does LESS THAN HALF the effort. Erie lifts, holds or supports trunk or limbs, but provides less than half the effort. 2-Substantial/Maximal Assistance-helper does MORE THAN HALF the effort. Erie lifts or holds trunk or limbs and provides more than half the effort. 5-Glcmqhhjr-nefmfr does ALL the effort. Patient does none of the effort to complete the activity. Or, the assistance of 2 or more helpers is required for the patient to complete the activity. If activity was not attempted, code reason: 7-Patient Refused. 9-Not Applicable-not attempted and the patient did not perform the activity before the current illness, exacerbation or injury. 10-Not Attempted due to Environmental Limitations-(lack of equipment, weather restraints, etc.). 88-Not Attempted due to Medical Conditions or Safety Concerns. Eating (QC): 6 (Per pt.) Shower/Bathe Self (QC): 3 (Mod assist overall. Pt. able to wash upper body seated in chair, as well as front natasha area and upper thighs. OT washed bilateral feet. Rear natasha area cleaned earlier with nursing.) On/Off Footwear: 2 (Pt. able to lift feet, one at a time for OT to doff dirty slipper socks and don fresh ones.) PT had just transferred pt. to reclining chair while OT obtaining items for pt. Pt. required dependent assistance x 2 for sit-stand and pivot, per PT. Once in chair, pt. agrees to sponge bathe. OT donned fresh hospital gown and slipper socks. Pt. brushed his hair. All needs were met and pt. up for lunch. Education OT Patient Education: Correct positioning, Modified ADL techniques, Progress toward Goal/Update tx plan, Purpose of tx/functional activities, Reviewed precautions, Rehab process, Transfer techniques Teaching Recipient: Patient Teaching Methods: Demonstration, Discussion Response to Teaching: Verbalize Understanding, Return Demonstration OT Fisheries Technical Officer Goals Senior Living Goals Time Frame: Oct 24, 2020 Eating (QC): 6 Oral Hygiene (QC): 6 Toileting Hygiene (QC): 2 Shower/Bathe Self (QC): 3 Upper Body Dressing (QC): 4 Lower Body Dressing (QC): 2 On/Off Footwear (QC): 2 Additional Goals: 1-Demonstrate ADL Tasks, 2-Verbalize Understanding, 3- ImproveStrength/Aston 1=Demonstrate adherence to instructed precautions during ADL tasks. 2=Patient will verbalize/demonstrate understanding of assistive devices/modifications for ADL. 3=Patient will improve strength/tolerance for activity to enable patient to perform ADL's. OT Education/Plan Problem List/Assessment Assessment: Decreased Activ Tolerance, Decreased UE Strength, Dependent Transfers, Impaired Bed Mobility, Impaired Funct Balance, Impaired I ADL's, Impaired Self-Care Skills Discharge Recommendations Plan/Recommendations: Continue POC Therapy Discharge Recommendati: 24 Hour Supervision, Post Acute OT Treatment Plan/Plan of Care Treatment,Training & Education: Yes Patient would benefit from OT for education, treatment and training to promote independence in ADL's, mobility, safety and/or upper extremity function for ADL's. Plan of Care: ADL Retraining, Caregiver Training, Functional Mobility, Group Exercise/Act as Ind, UE Funct Exercise/Act, UE Neuromus Re-Ed/Coord Treatment Duration: Oct 24, 2020 Frequency: 5 times per week Estimated Hrs Per Day: .25 hour per day Agreement: Yes Rehab Potential: Fair Time/GCodes Start Time: 11:35 Stop Time: 11:50 Total Time Billed (hr/min): 15 Billed Treatment Time 1, ADL RUSSJOSE OT Oct 13, 2020 12:01
--- NOTE | 2020-10-13 12:49 | Physical Therapy Daily Note ---
PT Daily Note-Current Subjective Patient agrees to PT. Mental Status Patient Orientation: Normal For Age Attachments: Oxygen Transfers SCALE: Activities may be completed with or without assistive devices. 0-Dozzhqlgoe-shadakx completes the activity by him/herself with no assistance from a helper. 5-Set-up or Clean-up Assistance-helper sets up or cleans up; patient completes activity. Vaughan assists only prior to or following the activity. 4-Supervision or Touching Assistance-helper provides verbal cues and/or touching/steadying and/or contact guard assistance as patient completes activity. Assistance may be provided throughout the activity or intermittently. 3-Partial/Moderate Assistance-helper does LESS THAN HALF the effort. Vaughan lifts, holds or supports trunk or limbs, but provides less than half the effort. 2-Substantial/Maximal Assistance-helper does MORE THAN HALF the effort. Vaughan lifts or holds trunk or limbs and provides more than half the effort. 0-Esgebdwgk-evnkyt does ALL the effort. Patient does none of the effort to complete the activity. Or, the assistance of 2 or more helpers is required for the patient to complete the activity. If activity was not attempted, code reason: 7-Patient Refused. 9-Not Applicable-not attempted and the patient did not perform the activity before the current illness, exacerbation or injury. 10-Not Attempted due to Environmental Limitations-(lack of equipment, weather restraints, etc.). 88-Not Attempted due to Medical Conditions or Safety Concerns. Lying to Sitting/Side of Bed(Q: 2 Sit to Stand (QC): 1 (x 2) Chair/Ydn-ly-Igjjt Xfer(QC): 1 (x 2) Exercises Seated Therapy Exercises: Long arc quads Seated Reps: 12 (AAROM) Assessment Patient transferred to recliner dependent assist of 2 with SPT. Ivonne sling placed in chair prior for nursing to utilize when patient returns to bed. PT Continuous Improvement Black Belt Goals Nursing Home Goals PT Continuous Improvement Black Belt Goals Time Frame: Nov 05, 2020 Roll Left & Right (QC): 3 Sit to Lying (QC): 3 Lying-Sitting on Side/Bed(QC): 3 Sit to Stand (QC): 2 Chair/Mce-ce-Toqld Xfer(QC): 2 PT Plan Treatment/Plan Treatment Plan: Continue Plan of Care Treatment Plan: Bed Mobility, Education, Functional Activity Aston, Functional Strength, Safety, Therapeutic Exercise, Transfers Treatment Duration: Nov 05, 2020 Frequency: 6 times per week Estimated Hrs Per Day: .5 hour per day Patient and/or Family Agrees t: Yes Time/GCodes Time In: 1125 Time Out: 1135 Total Billed Treatment Time: 10 Total Billed Treatment 1 visit FA 10 min LYDIA LORENZANA PT Oct 13, 2020 12:49
--- NOTE | 2020-10-13 16:39 | NUR ---
CM/SS follow up. CM/SS visited with patient to continue discharge planning. He was sitting up in his recliner. He was in good spirits and felt like he is doing well today. The patient reports he is finally being able to move his feet and legs more but it is just taking him a while. CM/SS informed the patient that [facility] has declined the patient and the referral to [facility] is still pending. CM/SS informed him the options are limited in the local and surrounding areas for inpatient rehab. CM/SS asked to discuss further options and patient stated "well, I don't have many". Cm/SS attempted to discuss senior living again. The patient refuses to go into a [facility] and doesn't understand why he cannot stay here in the hospital. CM/SS explained the medical necessity of being in the hospital. He understands but reports he thinks "it's ridiculous". The patient reports he is 99.5 percent sure he will not do a skilled facility and will just go home with a friend. CM/SS attempted to help the patient understand his debility and his need for max assist x2 or Ivonne lift. Patient is unwilling to look at other options at this time. CM/SS will continue to follow.
[2020-10-13 16:47] VITALS: BP 142/64
[2020-10-13] MEDS: warFARin 1 MG (COUMADIN) TAB PO SCH (17:49)
[2020-10-13 19:59] VITALS: BP 146/66
[2020-10-14] VITALS (7 sets, daily range): BP systolic 151–162; BP diastolic 69–75
--- NOTE | 2020-10-14 05:45 | Progress Note - Hospitalist ---
Subjective HPI/CC On Admission Date Seen by Provider: Oct 14, 2020 Time Seen by Provider: 10:00 CC: Dyspnea HPI: This is an 80yoWM who was transferred from [facility] to 4th floor then to [facility] due to revoking DNR status from [facility] who is currently on broad spectrum abx and on max Vapotherm at 40 liters and 100% Patient currently asking me what his chances of recovery is and after a heartfelt conversation I told him low probability of recovery. Palliative care nurse consulted. 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 He acquired B/L pneumonia, placed on Meropenem and Vancomycin. Dr. Gamble was consulted. Oxygen supplementation was maintained and close monitoring with IV Lasix and IV steroids. He had a drop in Hgb requiring transfusion. Dr. Smith was consulted. EGD and colonoscopy were planned EGD revealed no source of bleeding but colonoscopy was not a good prep so it was unable to be done and attempted again today and the decision was made because of his oxygen requirement that he would be unable to proceed on with the colonoscopy considering his advanced and rapid progression with ABG hypoxemia 49 with normal pH he was transferred up to 4th floor. He remains a DNR as he had placed at [facility]. I did talk to Vanessa his daughter in depth for the second time today regarding his status that was rapidly deteriorating. Dr. Gamble saw him in a consultation and agreed with the plan but his prognosis remained very guarded and she had been reporting two times he was in poor prognosis before but he has little reserve and significant hypoxemia requiring Vapotherm. The prognosis is very poor. Subjective/Events-last exam Had conference in the room with son on phone with team and discussion lasted 20 minutes Skilled care will now be pursued Review of Systems General: Fatigue, Malaise Pulmonary: Dyspnea, Cough Objective Exam Vital Signs Vital Signs Date Time Temp Pulse Resp B/P (MAP) Pulse Ox O2 Delivery O2 Flow Rate FiO2 10/15/20 05:03 36.8 65 20 147/71 (96) 95 Nasal Cannula 4.00 10/11/20 12:46 40 Capillary Refill : Less Than 3 Seconds General Appearance: No Apparent Distress, WD/WN, Chronically ill Respiratory: Lungs Clear Results/Procedures Lab Laboratory Tests 10/14/20 05:45 Patient resulted labs reviewed. Imaging: Reviewed Imaging Report Assessment/Plan Assessment and Plan Assess & Plan/Chief Complaint Assessment: Acute on chronic respiratory failure Pulmonary fibrosis on CT scan Anemia Severe myopathy Severe weakness Plan: 10/12/20: Unable to withstand 3 hour requirement for IRF Needs slower recovery at [place] 10/13/20: DC abx PT OT Monitor closely Needs NH Needs DNR 10/14/20: Skilled care will be pursued Diagnosis/Problems Diagnosis/Problems (1) Respiratory insufficiency (2) Warfarin anticoagulation (3) Volume overload (4) Hypoxemia (5) Diabetes mellitus (6) Thrush (7) Atrial fibrillation (8) COPD (chronic obstructive pulmonary disease) (9) Myopathy Status: Acute Clinical Quality Measures DVT/VTE Risk/Contraindication: Risk Factor Score Per Nursin RFS Level Per Nursing on Admit: 4+=Very High Contraindications-Pharm: Other *list below* Other: SAEID FORREST DO Oct 14, 2020 05:45
[2020-10-14] MEDS: methylPREDNISolone 40 MG/ML (Solu-MEDROL) VIAL IV SCH (05:50)
[2020-10-14 05:57] LABS: BASOPHILS % (AUTO) 0 % (0-10); EOSINOPHILS % (AUTO) 0 % (0-10); HEMATOCRIT 27 % (40-54); HEMOGLOBIN 8.4 g/dL (13.3-17.7); LYMPHOCYTES # (AUTO) 0.6 10^3/uL (1.0-4.0); LYMPHOCYTES % (AUTO) 5 % (12-44); MEAN CORPUSCULAR HEMOGLOBIN 30 pg (25-34); MEAN CORPUSCULAR HGB CONC 32 g/dL (32-36); MEAN CORPUSCULAR VOLUME 93 fL (80-99); MEAN PLATELET VOLUME 10.3 fL (9.0-12.2); MONOCYTES # (AUTO) 0.5 10^3/uL (0.0-1.0); MONOCYTES % (AUTO) 5 % (0-12); NEUTROPHILS # (AUTO) 9.4 10^3/uL (1.8-7.8); NEUTROPHILS % (AUTO) 88 % (42-75); PLATELET COUNT 255 10^3/uL (130-400); WHITE BLOOD COUNT 10.7 10^3/uL (4.3-11.0)
[2020-10-14 06:12] LABS: ALBUMIN 2.3 GM/DL (3.2-4.5); CHLORIDE 99 MMOL/L (98-107); INR 2.7 (0.8-1.4); POTASSIUM 4.5 MMOL/L (3.6-5.0); PROTHROMBIN TIME PATIENT 28.8 SEC (12.2-14.7); SODIUM 136 MMOL/L (135-145)
[2020-10-14 06:13] LABS: CALCIUM 7.6 MG/DL (8.5-10.1)
[2020-10-14 06:14] LABS: GLUCOSE 188 MG/DL (70-105)
[2020-10-14 06:15] LABS: TOTAL PROTEIN 4.5 GM/DL (6.4-8.2)
[2020-10-14 06:16] LABS: BILIRUBIN,TOTAL 0.3 MG/DL (0.1-1.0); CARBON DIOXIDE 30 MMOL/L (21-32)
[2020-10-14 06:18] LABS: ALKALINE PHOSPHATASE 88 U/L (40-136); CREATININE SERUM 1.06 MG/DL (0.60-1.30); GFR ESTIMATED > 60
[2020-10-14 06:19] LABS: BUN/CREATININE RATIO 46
[2020-10-14 06:21] LABS: ALANINE AMINOTRANSFERASE 34 U/L (0-55)
[2020-10-14] MEDS: inSUlin ASPART (NovoLOG) 1 UNIT/0.01 ML (CHARGE PER UNIT) SC SCH ×4 (06:42→20:22)
[2020-10-14] MEDS: RT-ALBUTEROL/IPRATROPIUM 3 ML (DUONEB) VIAL IH SCH ×4 (08:05→19:21)
--- NOTE | 2020-10-14 08:37 | Pulmonary Progress Note ---
Subjective Time Seen by a Provider: 08:32 Subjective/Events-last exam PT appears to be doing better. Sepsis Event Evaluation Height, Weight, BMI Height: '" Weight: lbs. oz. kg; 27.92 BMI Method: Exam Exam Vital Signs Date Time Temp Pulse Resp B/P (MAP) Pulse Ox O2 Delivery O2 Flow Rate FiO2 10/14/20 08:08 High Flow N/C 4.00 10/14/20 08:05 92 Nasal Cannula 4.00 10/14/20 07:00 71 10/14/20 03:52 37.1 79 15 156/74 (101) 92 High Flow N/C 4.00 10/14/20 01:00 67 10/14/20 00:00 36.6 74 16 151/72 (98) 94 High Flow N/C 4.00 10/13/20 21:55 High Flow N/C 4.00 10/13/20 20:27 93 Nasal Cannula 4.00 10/13/20 19:59 35.4 82 18 146/66 (92) 97 High Flow N/C 4.00 10/13/20 19:00 85 10/13/20 16:47 36.6 84 18 142/64 (90) 91 High Flow N/C 4.00 10/13/20 15:29 92 Nasal Cannula 3.00 10/13/20 14:34 89 10/13/20 12:00 36.5 72 20 130/65 (86) 95 High Flow N/C 4.00 10/13/20 11:03 High Flow N/C 4.00 10/13/20 09:45 36.6 74 20 127/62 (83) 94 High Flow N/C 4.00 I & O 10/14/20 07:00 Intake Total 1620 ml Output Total 1200 ml Balance 420 ml Height & Weight Height: '" Weight: lbs. oz. kg; 27.92 BMI Method: General Appearance: No Apparent Distress, WD/WN, Chronically ill, Obese HEENT: PERRL/EOMI Neck: Full Range of Motion Respiratory: No Accessory Muscle Use, No Respiratory Distress, Decreased Breath Sounds Cardiovascular: Regular Rate, Rhythm Capillary Refill: Less Than 3 Seconds Gastrointestinal: non tender, soft, no organomegaly Extremity: Normal Capillary Refill, Normal Inspection, No Calf Tenderness Neurologic/Psychiatric: Alert, Oriented x3, No Motor/Sensory Deficits, Normal Mood/Affect Skin: Normal Color, Warm/Dry Lymphatic: No Adenopathy Results Lab Laboratory Tests 10/13/20 04:45 10/14/20 05:45 Assessment/Plan Assessment/Plan Acute respiratory failure with hypoxia Pt is down to 4 liter NC - Solumedrol -- daily currently -D/C after today's dose Duoneb COPD with ILD -Oxygen -Start Advair Pneumonia -s/p Merrem and Vanc Anemia with mild gastritis per EGD -Hgb stable -Monitor PAF -Cardiology following -on Warfarin DVT/GI ppx -on Warfarin -on Protonix BRIDGETTE PÉREZ DO Oct 14, 2020 08:37
[2020-10-14] MEDS: NYSTATIN ORAL SUSP 5 ML UDC PO SCH ×4 (09:53→20:26)
[2020-10-14] MEDS: NYSTATIN CREAM (MYCOSTATIN) 30 GM TUBE TP SCH ×3 (09:53→20:27)
[2020-10-14] MEDS: MULTIVIT W/MINERALS TAB (THERAGRAN M) PO SCH (09:53)
[2020-10-14] MEDS: SENNA W/DOCUSATE (SENOKOT S) TABLET PO SCH ×2 (09:53→19:24)
[2020-10-14] MEDS: FOLIC ACID 1 MG TAB PO SCH (09:53)
[2020-10-14] MEDS: PANTOPRAZOLE 40 MG (PROTONIX) TAB PO SCH ×2 (09:53→20:26)
[2020-10-14] MEDS: FUROSEMIDE 40 MG/4 ML INJ (LASIX) IV SCH (09:53)
[2020-10-14] MEDS: SALIVA STIMULANT MOUTH SPRAY (BIOTENE) 1.5 OZ MM SCH ×3 (09:53→20:27)
[2020-10-14] MEDS: FLUTICASONE NASAL SPRAY (FLONASE) 16 GM BTL NS SCH ×2 (09:54→20:26)
[2020-10-14] MEDS: polyethylene glycoL POWDER 17 GM (MIRALAX) PACK PO SCH ×2 (10:08→19:24)
--- NOTE | 2020-10-14 10:44 | Physical Therapy Daily Note ---
PT Daily Note-Current Subjective Pt agreeable. Pt states "I have been working my legs and doing my glute squeezes. I am doing what I can." Pt conveys "I just need to get ambulatory so I can go to my daughter's house or go home." Mental Status Patient Orientation: Person, Place, Situation Transfers SCALE: Activities may be completed with or without assistive devices. 3-Gkzblpdhfq-pwyaiil completes the activity by him/herself with no assistance from a helper. 5-Set-up or Clean-up Assistance-helper sets up or cleans up; patient completes activity. [place] assists only prior to or following the activity. 4-Supervision or Touching Assistance-helper provides verbal cues and/or touching/steadying and/or contact guard assistance as patient completes activity. Assistance may be provided throughout the activity or intermittently. 3-Partial/Moderate Assistance-helper does LESS THAN HALF the effort. [place] lifts, holds or supports trunk or limbs, but provides less than half the effort. 2-Substantial/Maximal Assistance-helper does MORE THAN HALF the effort. [place] lifts or holds trunk or limbs and provides more than half the effort. 0-Mbkkloeiz-vgckaw does ALL the effort. Patient does none of the effort to complete the activity. Or, the assistance of 2 or more helpers is required for the patient to complete the activity. If activity was not attempted, code reason: 7-Patient Refused. 9-Not Applicable-not attempted and the patient did not perform the activity before the current illness, exacerbation or injury. 10-Not Attempted due to Environmental Limitations-(lack of equipment, weather restraints, etc.). 88-Not Attempted due to Medical Conditions or Safety Concerns. Pt dependent for mobility and transfers. Requires mod A for transfer supine- >EOB. Pt able to sit EOB, dangle x 10 min. Pt had LOB in sitting to the (L), able to recover with min A. Pt is max A of 2 sit<->stand and for squat pivot t ransfer. Pt transferred to chair with max A of 2. Pt stood with max A of 2 persons and 2 persons to clean/change pad in his chair due to incontinence of bowels. Exercises Supine Ex: Ankle pumps, Quad Set, Glut sets Supine Reps: 15 Treatments Pt able to intiate transfer to EOB, requires A for (R) LE and min A from raised HOB to transfer to the EOB. Pt sat EOB, performed trunk twist and reach across midline x 10, LAQ with min A (R) LE, ham curl with min resistance, march, hip abd with manual resistance, adductor squeezes all x 10-10 reps. Assessment Current Status: Fair Progress Pt motivated and participates with therapy but fatiques easily. Pt is dependent for all mobility. O2 per nasal canula. Pt resting in recliner with nurse and nurse aid present at end of treatment. Pt had call light and all needs met post therapy. PT Chcf Goals Chcf Goals PT Blind Lacer Goals Time Frame: Nov 05, 2020 Roll Left & Right (QC): 3 Sit to Lying (QC): 3 Lying-Sitting on Side/Bed(QC): 3 Sit to Stand (QC): 2 Chair/Ykd-mr-Leyqv Xfer(QC): 2 PT Plan Treatment/Plan Treatment Plan: Continue Plan of Care Treatment Plan: Bed Mobility, Education, Functional Activity Aston, Functional Strength, Safety, Therapeutic Exercise, Transfers Treatment Duration: Nov 05, 2020 Frequency: 6 times per week Estimated Hrs Per Day: .5 hour per day Patient and/or Family Agrees t: Yes Time/GCodes Time In: 940 Time Out: 1010 Total Billed Treatment Time: 30 Total Billed Treatment 1, FA x 15', Ther ex x 15' DEZ LEYVA CPTA Oct 14, 2020 10:44
--- NOTE | 2020-10-14 12:32 | Occupational Ther Daily Note ---
OT Current Status-Daily Note Subjective No pain reported. Appearance Pt. up in chair. Agrees to work with OT. Mental Status/Objective Patient Orientation: Person, Place Attachments: Oxygen ADL-Treatment Therapy Code Descriptions/Definitions Functional [place] Measure: 0=Not Assessed/NA 4=Minimal Assistance 1=Total Assistance 5=Supervision or Setup 2=Maximal Assistance 6=Modified [place] 3=Moderate Assistance 7=Complete IndependenceSCALE: Activities may be completed with or without assistive devices. 0-Kinvljzxvb-bzgxwzm completes the activity by him/herself with no assistance from a helper. 5-Set-up or Clean-up Assistance-helper sets up or cleans up; patient completes activity. [place] assists only prior to or following the activity. 4-Supervision or Touching Assistance-helper provides verbal cues and/or touching/steadying and/or contact guard assistance as patient completes activity. Assistance may be provided throughout the activity or intermittently. 3-Partial/Moderate Assistance-helper does LESS THAN HALF the effort. [place] lifts, holds or supports trunk or limbs, but provides less than half the effort. 2-Substantial/Maximal Assistance-helper does MORE THAN HALF the effort. [place] lifts or holds trunk or limbs and provides more than half the effort. 3-Radgeggvt-aicgkw does ALL the effort. Patient does none of the effort to complete the activity. Or, the assistance of 2 or more helpers is required for the patient to complete the activity. If activity was not attempted, code reason: 7-Patient Refused. 9-Not Applicable-not attempted and the patient did not perform the activity before the current illness, exacerbation or injury. 10-Not Attempted due to Environmental Limitations-(lack of equipment, weather restraints, etc.). 88-Not Attempted due to Medical Conditions or Safety Concerns. Pt. up in chair. Agrees to UE exercises. Pt. completes bilateral UE exercises x 10 reps each x 3 exercises with yellow theraband. Pt. then practices transfer preparation methods while seated in chair. Pt. is educated in proper method before standing. Pt. is able to lean self back in chair, and push self to edge. He is able to place both feet under him and lean forward. Attempted to engage pt. in chair push up/standing method and pt. does not have arm strength to lift self. Pt. is able to complete AROM exercises with bilateral LE to available range while seated. Pt. is educated on specific core strengthening exercises to perform while seated, and while in bed, such as leaning forward at pelvis, keeping trunk upright, etc.... All needs met in room. Education OT Patient Education: Correct positioning, Exercise program, Progress toward Goal/Update tx plan, Purpose of tx/functional activities, Reviewed precautions, Rehab process, Transfer techniques Teaching Recipient: Patient Teaching Methods: Demonstration, Discussion Response to Teaching: Verbalize Understanding, Return Demonstration OT Contract Forester Goals Contract Forester Goals Time Frame: Oct 24, 2020 Eating (QC): 6 Oral Hygiene (QC): 6 Toileting Hygiene (QC): 2 Shower/Bathe Self (QC): 3 Upper Body Dressing (QC): 4 Lower Body Dressing (QC): 2 On/Off Footwear (QC): 2 Additional Goals: 1-Demonstrate ADL Tasks, 2-Verbalize Understanding, 3- ImproveStrength/[place]ston 1=Demonstrate adherence to instructed precautions during ADL tasks. 2=Patient will verbalize/demonstrate understanding of assistive devic es/modifications for ADL. 3=Patient will improve strength/tolerance for activity to enable patient to perform ADL's. OT Education/Plan Problem List/Assessment Assessment: Decreased Activ Tolerance, Decreased UE Strength, Dependent Transfers, Impaired Funct Balance, Impaired I ADL's, Impaired Self-Care Skills, Restricted Funct UE ROM Discharge Recommendations Plan/Recommendations: Continue POC Therapy Discharge Recommendati: 24 Hour Supervision, Post Acute OT Treatment Plan/Plan of Care Treatment,Training & Education: Yes Patient would benefit from OT for education, treatment and training to promote independence in ADL's, mobility, safety and/or upper extremity function for ADL's. Plan of Care: ADL Retraining, Caregiver Training, Functional Mobility, Group Exercise/Act as Ind, UE Funct Exercise/Act, UE Neuromus Re-Ed/Coord Treatment Duration: Oct 24, 2020 Frequency: 5 times per week Estimated Hrs Per Day: .25 hour per day Agreement: Yes Rehab Potential: Fair Time/GCodes Start Time: 10:20 Stop Time: 10:45 Total Time Billed (hr/min): 25 Billed Treatment Time 1, Ex x 2 RUSSJOSE OT Oct 14, 2020 12:32
--- NOTE | 2020-10-14 13:21 | NUR ---
QUINTON/SARAI follow up. CM/SS contacted the patient son Dane to give an update and discuss discharge planning. This sw talked with Dane at length on what is recommended and challenges with discharge. Dane had many concerns surroundings next steps. Dane felt that he should be able to return to inpatient rehab and not go into a fci facility. CM/SS attempted to explain denial from rehab; however, Dane requested to speak with inpatient rehab worker and Dr. Perez. QUINTON/SS informed the physician and Florencia with Inpatient Rehab of the conversation had with Dane. This sw, Dr. Perez, Mega RN, and [facility] for Inpatient Re[facility] went into the room to meet with the patient and placed son Dane on Speak phone. After meeting, the patient and Dane are both agreeable with having a referral sent to a skilled facility with then intent that Inpatient Rehab will evaluate when patient reaches a higher level of physical functioning. QUINTON/SS received a call from Argen[facility] [address]. She reports a family member has made a referral on the internet. CM/SS will fax a referral packet and await acceptance/denial.
--- NOTE | 2020-10-14 15:56 | Cardiology Progress Note ---
Cardiology SOAP Progress Note Subjective: no cardiac complaints Objective: I&O/Vital Signs 10/16/20 10/16/20 10/16/20 10/16/20 08:00 08:10 09:33 12:00 Temp 36.0 35.8 Pulse 70 87 Resp 16 16 B/P (MAP) 148/70 (96) 105/55 (72) Pulse Ox 93 92 92 O2 Delivery High Flow N/C High Flow N/C Nasal Cannula High Flow N/C O2 Flow Rate 4.00 4.00 4.00 4.00 10/16/20 16:55 Temp 36.6 Pulse 91 Resp 18 B/P (MAP) 121/60 (80) Pulse Ox 93 O2 Delivery High Flow N/C O2 Flow Rate 4.00 10/16/20 00:00 Intake Total 1280 ml Output Total 1400 ml Balance -120 ml Constitutional: AAO x 3, apparent distress Respiratory: accessory muscle use, respiratory distress, other (Decreased breath sounds bilaterally) Cardiovascular: regular rate-rhythm, S1 and S2, systolic murmur Gastrointestional: soft, audible bowel sounds Extremities: normal range of motion, non-tender, normal inspection Neurologic/Psychiatric: no motor/sensory deficits, alert, normal mood/affect, oriented x 3 Skin: normal color, warm/dry Results/Procedures: Labs Laboratory Tests 10/15/20 20:15: Glucometer 322H 10/16/20 05:00: Prothrombin Time 28.4H, INR Comment 2.6H, Sodium Level 138, Potassium Level 4.1, Chloride Level 99, Carbon Dioxide Level 30, Anion Gap 9, Blood Urea Nitrogen 46H , Creatinine 1.02, Estimat Glomerular Filtration Rate > 60, BUN/Creatinine Ratio 45, Glucose Level 132H, Calcium Level 7.5L, Corrected Calcium 8.9, Total Bilirubin 0.4, Aspartate Amino Transf (AST/SGOT) 23, Alanine Aminotransferase (ALT/SGPT) 36, Alkaline Phosphatase 93, Total Protein 4.5L, Albumin 2.3L 10/16/20 12:06: Glucometer 244H 10/16/20 16:59: Glucometer 157H Microbiology 10/05/20 Blood Culture - Final, Complete No growth A/P: Assessment/Dx: Pneumonia Anemia PAF DM Plan: Pneumonia, Anemia of undetermined etiology - underwent EGD showing mild gastritis. PAF, currently sinus rhythm, OAC with warfarin, INR 3.2, continue to monitor. Hypokalemia, replaced and improved, continue to monitor. EKG of 09-29-2020 showed RBBB of unknown length of time Echocardiogram of Sep 28, 2020 showed LVEF 55-65%. 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 Perez Thank you for your consultation. Please call me if you have any questions. Malgorzata Fabian MD, FACP, FACC, FSCAI, FHRS, CCDS Interventional Cardiology Cardiac Electrophysiology Vascular Medicine and Endovascular Interventions Aleks FABIAN MD Oct 14, 2020 15:56
[2020-10-14] MEDS: warFARin 1 MG (COUMADIN) TAB PO SCH (17:36)
[2020-10-14] MEDS: ADVAIR HFA 115/21 MCG INHALER 8 GM IH SCH (19:21)
[2020-10-15] VITALS (7 sets, daily range): BP systolic 114–148; BP diastolic 59–71
[2020-10-15] MEDS: inSUlin ASPART (NovoLOG) 1 UNIT/0.01 ML (CHARGE PER UNIT) SC SCH ×4 (05:19→20:28)
[2020-10-15 05:28] LABS: BASOPHILS % (AUTO) 0 % (0-10); EOSINOPHILS # (AUTO) 0.1 10^3/uL (0.0-0.3); EOSINOPHILS % (AUTO) 1 % (0-10); HEMATOCRIT 27 % (40-54); HEMOGLOBIN 8.6 g/dL (13.3-17.7); LYMPHOCYTES # (AUTO) 1.5 10^3/uL (1.0-4.0); LYMPHOCYTES % (AUTO) 13 % (12-44); MEAN CORPUSCULAR HEMOGLOBIN 30 pg (25-34); MEAN CORPUSCULAR HGB CONC 32 g/dL (32-36); MEAN CORPUSCULAR VOLUME 94 fL (80-99); MEAN PLATELET VOLUME 10.1 fL (9.0-12.2); MONOCYTES # (AUTO) 0.8 10^3/uL (0.0-1.0); MONOCYTES % (AUTO) 7 % (0-12); NEUTROPHILS # (AUTO) 8.4 10^3/uL (1.8-7.8); NEUTROPHILS % (AUTO) 77 % (42-75); PLATELET COUNT 282 10^3/uL (130-400)
[2020-10-15 05:38] LABS: ALBUMIN 2.2 GM/DL (3.2-4.5); CHLORIDE 99 MMOL/L (98-107); POTASSIUM 4.2 MMOL/L (3.6-5.0); SODIUM 137 MMOL/L (135-145)
[2020-10-15 05:39] LABS: CALCIUM 7.5 MG/DL (8.5-10.1)
[2020-10-15 05:40] LABS: GLUCOSE 138 MG/DL (70-105); INR 2.7 (0.8-1.4); TOTAL PROTEIN 4.4 GM/DL (6.4-8.2)
[2020-10-15 05:41] LABS: CARBON DIOXIDE 32 MMOL/L (21-32)
[2020-10-15 05:42] LABS: BILIRUBIN,TOTAL 0.5 MG/DL (0.1-1.0)
[2020-10-15 05:44] LABS: ALKALINE PHOSPHATASE 84 U/L (40-136); CREATININE SERUM 1.02 MG/DL (0.60-1.30); GFR ESTIMATED > 60
[2020-10-15 05:45] LABS: BUN/CREATININE RATIO 44
[2020-10-15 05:47] LABS: ALANINE AMINOTRANSFERASE 32 U/L (0-55)
[2020-10-15] MEDS: methylPREDNISolone 40 MG/ML (Solu-MEDROL) VIAL IV SCH (06:25)
[2020-10-15] MEDS: PANTOPRAZOLE 40 MG (PROTONIX) TAB PO SCH ×2 (08:42→20:28)
[2020-10-15] MEDS: NYSTATIN ORAL SUSP 5 ML UDC PO SCH ×4 (08:42→20:28)
[2020-10-15] MEDS: FOLIC ACID 1 MG TAB PO SCH (08:42)
[2020-10-15] MEDS: MULTIVIT W/MINERALS TAB (THERAGRAN M) PO SCH (08:42)
[2020-10-15] MEDS: FUROSEMIDE 40 MG/4 ML INJ (LASIX) IV SCH (08:42)
[2020-10-15] MEDS: SENNA W/DOCUSATE (SENOKOT S) TABLET PO SCH ×2 (08:42→19:50)
[2020-10-15] MEDS: polyethylene glycoL POWDER 17 GM (MIRALAX) PACK PO SCH ×2 (08:42→19:50)
[2020-10-15] MEDS: NYSTATIN CREAM (MYCOSTATIN) 30 GM TUBE TP SCH ×3 (08:43→20:29)
[2020-10-15] MEDS: SALIVA STIMULANT MOUTH SPRAY (BIOTENE) 1.5 OZ MM SCH ×3 (08:43→20:28)
[2020-10-15] MEDS: FLUTICASONE NASAL SPRAY (FLONASE) 16 GM BTL NS SCH ×2 (08:44→20:28)
[2020-10-15] MEDS: RT-ALBUTEROL/IPRATROPIUM 3 ML (DUONEB) VIAL IH SCH ×3 (09:24→18:21)
[2020-10-15] MEDS: ADVAIR HFA 115/21 MCG INHALER 8 GM IH SCH ×2 (10:15→18:21)
--- NOTE | 2020-10-15 10:15 | NUR ---
PT REFUSED BREATHING TX AT THIS TIME. PT IS VERY UPSET ABOUT THE HOSPITAL GIVING AWAY PERSONAL INFORMATION TO FAMILY MEMBERS.
--- NOTE | 2020-10-15 12:26 | Physical Therapy Daily Note ---
PT Daily Note-Current Subjective Pt agreeable. Pt says "I have been doing my exercises non stop. I can get this (R) leg to move some on my own now." Pt denies pain. Transfers SCALE: Activities may be completed with or without assistive devices. 5-Wcnwdrawqs-eveddiz completes the activity by him/herself with no assistance from a helper. 5-Set-up or Clean-up Assistance-helper sets up or cleans up; patient completes activity. [place] assists only prior to or following the activity. 4-Supervision or Touching Assistance-helper provides verbal cues and/or touching/steadying and/or contact guard assistance as patient completes activity. Assistance may be provided throughout the activity or intermittently. 3-Partial/Moderate Assistance-helper does LESS THAN HALF the effort. [place] lifts, holds or supports trunk or limbs, but provides less than half the effort. 2-Substantial/Maximal Assistance-helper does MORE THAN HALF the effort. [place] lifts or holds trunk or limbs and provides more than half the effort. 5-Ehzzkssod-mwvetm does ALL the effort. Patient does none of the effort to complete the activity. Or, the assistance of 2 or more helpers is required for the patient to complete the activity. If activity was not attempted, code reason: 7-Patient Refused. 9-Not Applicable-not attempted and the patient did not perform the activity before the current illness, exacerbation or injury. 10-Not Attempted due to Environmental Limitations-(lack of equipment, weather restraints, etc.). 88-Not Attempted due to Medical Conditions or Safety Concerns. Pt transfered to EOB with min-mod A. Pt sat EOB x 8-10 min. Pt transfered to recliner with Liko lift. Treatments QS, GS, Heel slide, hip abd and bridge (isometrics) x 15 each. (R) LE AAROM for all ther ex. Pt educated on use of HOB up to manually place (R) LE in hooklying for bridge isometrics. Pt cued to push up into standing position when on Liko lift. Pt did attempt to ext knees and hips while in Liko lift. Assessment Current Status: Fair Progress Pt resting in recliner with (B) LE floating on pillow, call light in lap. O2 per nasal canula and xu sling under pt for return to bed. Pt made some progress by ability to perform partial heel slide and partial hip abd with the (R) LE while supine. Pt aminata treatment very well, denied pain post therapy. PT Store Mgr Goals Store Mgr Goals PT Retirement Goals Time Frame: Nov 05, 2020 Roll Left & Right (QC): 3 Sit to Lying (QC): 3 Lying-Sitting on Side/Bed(QC): 3 Sit to Stand (QC): 2 Chair/Wnz-rp-Rnkgt Xfer(QC): 2 PT Plan Treatment/Plan Treatment Plan: Continue Plan of Care Treatment Plan: Bed Mobility, Education, Functional Activity [place], Functional Strength, Safety, Therapeutic Exercise, Transfers Treatment Duration: Nov 05, 2020 Frequency: 6 times per week Estimated Hrs Per Day: .5 hour per day Patient and/or Family Agrees t: Yes Time/GCodes Time In: 1030 Time Out: 1108 Total Billed Treatment Time: 38 Total Billed Treatment 1, Ther ex 15, FA x 23' DEZ LEYVA CPTA Oct 15, 2020 12:26
--- NOTE | 2020-10-15 13:59 | Progress Note - Hospitalist ---
Subjective HPI/CC On Admission Date Seen by Provider: Oct 15, 2020 Time Seen by Provider: 11:00 CC: Dyspnea HPI: This is an 80yoWM who was transferred from [facility] to 4th floor then to [facility] due to revoking DNR status from [facility] who is currently on broad spectrum abx and on max Vapotherm at 40 liters and 100% Patient currently asking me what his chances of recovery is and after a heartfelt conversation I told him low probability of recovery. Palliative care nurse consulted. 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 He acquired B/L pneumonia, placed on Meropenem and Vancomycin. Dr. Gamble was consulted. Oxygen supplementation was maintained and close monitoring with IV Lasix and IV steroids. He had a drop in Hgb requiring transfusion. Dr. Smith was consulted. EGD and colonoscopy were planned EGD revealed no source of bleeding but colonoscopy was not a good prep so it was unable to be done and attempted again today and the decision was made because of his oxygen requirement that he would be unable to proceed on with the colonoscopy considering his advanced and rapid progression with ABG hypoxemia 49 with normal pH he was transferred up to 4th floor. He remains a DNR as he had placed at [facility]. I did talk to Vanessa his daughter in depth for the second time today regarding his status that was rapidly deteriorating. Dr. Gamble saw him in a consultation and agreed with the plan but his prognosis remained very guarded and she had been reporting two times he was in poor prognosis before but he has little reserve and significant hypoxemia requiring Vapotherm. The prognosis is very poor. Subjective/Events-last exam No major issues Talked on the phone the entire time I was in the room with him Review of Systems General: Fatigue Pulmonary: Dyspnea Objective Exam Vital Signs Vital Signs Date Time Temp Pulse Resp B/P (MAP) Pulse Ox O2 Delivery O2 Flow Rate FiO2 10/16/20 04:00 36.4 76 18 122/65 (84) 92 High Flow N/C 4.00 10/11/20 12:46 40 Capillary Refill : Less Than 3 Seconds General Appearance: No Apparent Distress, WD/WN, Chronically ill Respiratory: Lungs Clear Cardiovascular: Regular Rate, Rhythm Neurologic/Psychiatric: Alert, Oriented x3, No Motor/Sensory Deficits, Normal Mood/Affect Results/Procedures Lab Laboratory Tests 10/16/20 05:00 Patient resulted labs reviewed. Imaging: Reviewed Imaging Report Assessment/Plan Assessment and Plan Assess & Plan/Chief Complaint Assessment: Acute on chronic respiratory failure Pulmonary fibrosis on CT scan Anemia Severe myopathy Severe weakness Plan: 10/12/20: Unable to withstand 3 hour requirement for IRF Needs slower recovery at [facility] 10/13/20: DC abx PT OT Monitor closely Needs NH Needs DNR 10/14/20: Skilled care will be pursued 10/15/20: Monitor labs O2 PT OT Diagnosis/Problems Diagnosis/Problems (1) Respiratory insufficiency (2) Warfarin anticoagulation (3) Volume overload (4) Hypoxemia (5) Diabetes mellitus (6) Thrush (7) Atrial fibrillation (8) COPD (chronic obstructive pulmonary disease) (9) Myopathy Status: Acute Clinical Quality Measures DVT/VTE Risk/Contraindication: Risk Factor Score Per Nursin RFS Level Per Nursing on Admit: 4+=Very High Contraindications-Pharm: Other *list below* Other: SAEID FORREST DO Oct 15, 2020 13:58
[2020-10-15] MEDS: warFARin 1 MG (COUMADIN) TAB PO SCH (17:49)
--- NOTE | 2020-10-15 18:27 | Cardiology Progress Note ---
Cardiology SOAP Progress Note Subjective: mild shortness of breath Objective: I&O/Vital Signs 10/16/20 10/16/20 10/16/20 10/16/20 08:00 08:10 09:33 12:00 Temp 36.0 35.8 Pulse 70 87 Resp 16 16 B/P (MAP) 148/70 (96) 105/55 (72) Pulse Ox 93 92 92 O2 Delivery High Flow N/C High Flow N/C Nasal Cannula High Flow N/C O2 Flow Rate 4.00 4.00 4.00 4.00 10/16/20 16:55 Temp 36.6 Pulse 91 Resp 18 B/P (MAP) 121/60 (80) Pulse Ox 93 O2 Delivery High Flow N/C O2 Flow Rate 4.00 10/16/20 00:00 Intake Total 1280 ml Output Total 1400 ml Balance -120 ml Constitutional: AAO x 3, apparent distress Respiratory: chest is bilaterally symmetric, other (Decreased breath sounds bilaterally) Cardiovascular: regular rate-rhythm, S1 and S2, systolic murmur Gastrointestional: soft, audible bowel sounds Extremities: normal range of motion, non-tender, normal inspection Neurologic/Psychiatric: no motor/sensory deficits, alert, normal mood/affect, oriented x 3 Skin: normal color, warm/dry Results/Procedures: Labs Laboratory Tests 10/15/20 20:15: Glucometer 322H 10/16/20 05:00: Prothrombin Time 28.4H, INR Comment 2.6H, Sodium Level 138, Potassium Level 4.1, Chloride Level 99, Carbon Dioxide Level 30, Anion Gap 9, Blood Urea Nitrogen 46H , Creatinine 1.02, Estimat Glomerular Filtration Rate > 60, BUN/Creatinine Ratio 45, Glucose Level 132H, Calcium Level 7.5L, Corrected Calcium 8.9, Total Bilirubin 0.4, Aspartate Amino Transf (AST/SGOT) 23, Alanine Aminotransferase (ALT/SGPT) 36, Alkaline Phosphatase 93, Total Protein 4.5L, Albumin 2.3L 10/16/20 12:06: Glucometer 244H 10/16/20 16:59: Glucometer 157H Microbiology 10/05/20 Blood Culture - Final, Complete No growth A/P: Assessment/Dx: Pneumonia Anemia PAF DM Plan: Pneumonia, Anemia of undetermined etiology - underwent EGD showing mild gastritis. PAF, currently sinus rhythm, OAC with warfarin, INR 3.2, continue to monitor. Hypokalemia, replaced and improved, continue to monitor. EKG of 09-29-2020 showed RBBB of unknown length of time Echocardiogram of Sep 28, 2020 showed LVEF 55-65%. 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 Perez Thank you for your consultation. Please call me if you have any questions. Malgorzata Fabian MD, FACP, FACC, FSCAI, FHRS, CCDS Interventional Cardiology Cardiac Electrophysiology Vascular Medicine and Endovascular Interventions Aleks FABIAN MD Oct 15, 2020 18:27
[2020-10-16 04:00] VITALS: BP 122/65
[2020-10-16 05:29] LABS: ALBUMIN 2.3 GM/DL (3.2-4.5)
[2020-10-16 05:30] LABS: CHLORIDE 99 MMOL/L (98-107); POTASSIUM 4.1 MMOL/L (3.6-5.0); SODIUM 138 MMOL/L (135-145)
[2020-10-16 05:31] LABS: CALCIUM 7.5 MG/DL (8.5-10.1)
[2020-10-16 05:32] LABS: GLUCOSE 132 MG/DL (70-105); TOTAL PROTEIN 4.5 GM/DL (6.4-8.2)
[2020-10-16 05:33] LABS: CARBON DIOXIDE 30 MMOL/L (21-32)
[2020-10-16 05:34] LABS: BILIRUBIN,TOTAL 0.4 MG/DL (0.1-1.0)
[2020-10-16 05:35] LABS: ALKALINE PHOSPHATASE 93 U/L (40-136)
[2020-10-16 05:36] LABS: CREATININE SERUM 1.02 MG/DL (0.60-1.30); GFR ESTIMATED > 60
[2020-10-16 05:37] LABS: BUN/CREATININE RATIO 45
[2020-10-16 05:39] LABS: ALANINE AMINOTRANSFERASE 36 U/L (0-55)
[2020-10-16 05:43] LABS: INR 2.6 (0.8-1.4); PROTHROMBIN TIME PATIENT 28.4 SEC (12.2-14.7)
[2020-10-16] MEDS: inSUlin ASPART (NovoLOG) 1 UNIT/0.01 ML (CHARGE PER UNIT) SC SCH ×4 (05:43→20:20)
--- NOTE | 2020-10-16 07:26 | Progress Note - Hospitalist ---
Subjective HPI/CC On Admission Date Seen by Provider: Oct 16, 2020 Time Seen by Provider: 11:00 CC: Dyspnea HPI: This is an 80yoWM who was transferred from [facility] to 4th floor then to [facility] due to revoking DNR status from [facility] who is currently on broad spectrum abx and on max Vapotherm at 40 liters and 100% Patient currently asking me what his chances of recovery is and after a heartfelt conversation I told him low probability of recovery. Palliative care nurse consulted. 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 He acquired B/L pneumonia, placed on Meropenem and Vancomycin. Dr. Gamble was consulted. Oxygen supplementation was maintained and close monitoring with IV Lasix and IV steroids. He had a drop in Hgb requiring transfusion. Dr. Smith was consulted. EGD and colonoscopy were planned EGD revealed no source of bleeding but colonoscopy was not a good prep so it was unable to be done and attempted again today and the decision was made because of his oxygen requirement that he would be unable to proceed on with the colonoscopy considering his advanced and rapid progression with ABG hypoxemia 49 with normal pH he was transferred up to 4th floor. He remains a DNR as he had placed at [facility]. I did talk to Vanessa his daughter in depth for the second time today regarding his status that was rapidly deteriorating. Dr. Gamble saw him in a consultation and agreed with the plan but his prognosis remained very guarded and she had been reporting two times he was in poor prognosis before but he has little reserve and significant hypoxemia requiring Vapotherm. The prognosis is very poor. Subjective/Events-last exam No significant issues O2 maintained VCV admit hopefully soon PT OT INR good Labs good Review of Systems General: Fatigue, Malaise Pulmonary: Dyspnea Objective Exam Vital Signs Vital Signs Date Time Temp Pulse Resp B/P (MAP) Pulse Ox O2 Delivery O2 Flow Rate FiO2 10/17/20 03:57 36.7 82 20 128/60 (82) 95 High Flow N/C 5.00 10/11/20 12:46 40 Capillary Refill : Less Than 3 Seconds General Appearance: No Apparent Distress, WD/WN, Chronically ill Respiratory: Chest Non Tender, Lungs Clear, Normal Breath Sounds, No Accessory Muscle Use, No Respiratory Distress Cardiovascular: Regular Rate, Rhythm, No Edema, No Gallop, No JVD, No Murmur, Normal Peripheral Pulses Neurologic/Psychiatric: Alert, Oriented x3, No Motor/Sensory Deficits, Normal Mood/Affect Results/Procedures Lab Laboratory Tests 10/17/20 04:10 Patient resulted labs reviewed. Imaging: Reviewed Imaging Report Assessment/Plan Assessment and Plan Assess & Plan/Chief Complaint Assessment: Acute on chronic respiratory failure Pulmonary fibrosis on CT scan Anemia Severe myopathy Severe weakness Plan: 10/12/20: Unable to withstand 3 hour requirement for IRF Needs slower recovery at NH 10/13/20: DC abx PT OT Monitor closely Needs NH Needs DNR 10/14/20: Skilled care will be pursued 10/15/20: Monitor labs O2 PT OT 10/16/20: NHP Diagnosis/Problems Diagnosis/Problems (1) Respiratory insufficiency (2) Warfarin anticoagulation (3) Volume overload (4) Hypoxemia (5) Diabetes mellitus (6) Thrush (7) Atrial fibrillation (8) COPD (chronic obstructive pulmonary disease) (9) Myopathy Status: Acute Clinical Quality Measures DVT/VTE Risk/Contraindication: Risk Factor Score Per Nursin RFS Level Per Nursing on Admit: 4+=Very High Contraindications-Pharm: Other *list below* Other: SAEID FORREST DO Oct 16, 2020 07:26
[2020-10-16 08:00] VITALS: BP 148/70
[2020-10-16] MEDS: RT-ALBUTEROL/IPRATROPIUM 3 ML (DUONEB) VIAL IH SCH ×5 (09:27→21:25)
[2020-10-16] MEDS: NYSTATIN ORAL SUSP 5 ML UDC PO SCH ×4 (09:28→20:20)
[2020-10-16] MEDS: ADVAIR HFA 115/21 MCG INHALER 8 GM IH SCH ×2 (09:28→20:21)
[2020-10-16] MEDS: FUROSEMIDE 40 MG/4 ML INJ (LASIX) IV SCH (09:29)
[2020-10-16] MEDS: PANTOPRAZOLE 40 MG (PROTONIX) TAB PO SCH ×2 (09:29→20:20)
[2020-10-16] MEDS: FLUTICASONE NASAL SPRAY (FLONASE) 16 GM BTL NS SCH ×2 (09:29→20:19)
[2020-10-16] MEDS: SENNA W/DOCUSATE (SENOKOT S) TABLET PO SCH ×2 (09:29→20:12)
[2020-10-16] MEDS: SALIVA STIMULANT MOUTH SPRAY (BIOTENE) 1.5 OZ MM SCH ×3 (09:29→20:18)
[2020-10-16] MEDS: FOLIC ACID 1 MG TAB PO SCH (09:29)
[2020-10-16] MEDS: MULTIVIT W/MINERALS TAB (THERAGRAN M) PO SCH (09:29)
[2020-10-16] MEDS: polyethylene glycoL POWDER 17 GM (MIRALAX) PACK PO SCH ×2 (09:32→20:11)
[2020-10-16] MEDS: NYSTATIN CREAM (MYCOSTATIN) 30 GM TUBE TP SCH ×3 (09:34→20:18)
[2020-10-16 12:00] VITALS: BP 105/55
[2020-10-16 16:55] VITALS: BP 121/60
[2020-10-16] MEDS: warFARin 1 MG (COUMADIN) TAB PO SCH (17:52)
[2020-10-16 19:55] VITALS: BP 127/63
--- NOTE | 2020-10-16 19:57 | Cardiology Progress Note ---
Cardiology SOAP Progress Note Subjective: Denies any significant cardiac complaints Objective: I&O/Vital Signs 10/16/20 10/16/20 10/16/20 10/16/20 08:00 08:10 09:33 12:00 Temp 36.0 35.8 Pulse 70 87 Resp 16 16 B/P (MAP) 148/70 (96) 105/55 (72) Pulse Ox 93 92 92 O2 Delivery High Flow N/C High Flow N/C Nasal Cannula High Flow N/C O2 Flow Rate 4.00 4.00 4.00 4.00 10/16/20 16:55 Temp 36.6 Pulse 91 Resp 18 B/P (MAP) 121/60 (80) Pulse Ox 93 O2 Delivery High Flow N/C O2 Flow Rate 4.00 10/16/20 00:00 Intake Total 1280 ml Output Total 1400 ml Balance -120 ml Constitutional: AAO x 3 Respiratory: chest is bilaterally symmetric, other (Decreased breath sounds bilaterally) Cardiovascular: regular rate-rhythm, S1 and S2, systolic murmur Gastrointestional: soft, audible bowel sounds Extremities: normal range of motion, non-tender, normal inspection Neurologic/Psychiatric: no motor/sensory deficits, alert, normal mood/affect, oriented x 3 Skin: normal color, warm/dry Results/Procedures: Labs Laboratory Tests 10/15/20 20:15: Glucometer 322H 10/16/20 05:00: Prothrombin Time 28.4H, INR Comment 2.6H, Sodium Level 138, Potassium Level 4.1, Chloride Level 99, Carbon Dioxide Level 30, Anion Gap 9, Blood Urea Nitrogen 46H , Creatinine 1.02, Estimat Glomerular Filtration Rate > 60, BUN/Creatinine Ratio 45, Glucose Level 132H, Calcium Level 7.5L, Corrected Calcium 8.9, Total Bilirubin 0.4, Aspartate Amino Transf (AST/SGOT) 23, Alanine Aminotransferase (ALT/SGPT) 36, Alkaline Phosphatase 93, Total Protein 4.5L, Albumin 2.3L 10/16/20 12:06: Glucometer 244H 10/16/20 16:59: Glucometer 157H Microbiology 10/05/20 Blood Culture - Final, Complete No growth A/P: Assessment/Dx: Pneumonia Anemia PAF DM Plan: Pneumonia, Anemia of undetermined etiology - underwent EGD showing mild gastritis. PAF, currently sinus rhythm, OAC with warfarin, INR 3.2, continue to monitor. Hypokalemia, replaced and improved, continue to monitor. EKG of 09-29-2020 showed RBBB of unknown length of time Echocardiogram of Sep 28, 2020 showed LVEF 55-65%. 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 Perez Thank you for your consultation. Please call me if you have any questions. Malgorzata Fabian MD, FACP, FACC, FSCAI, FHRS, CCDS Interventional Cardiology Cardiac Electrophysiology Vascular Medicine and Endovascular Interventions Aleks FABIAN MD Oct 16, 2020 19:57
[2020-10-17] VITALS: BP 120/59
[2020-10-17 03:57] VITALS: BP 128/60
[2020-10-17 04:32] LABS: BASOPHILS % (AUTO) 0 % (0-10); EOSINOPHILS # (AUTO) 0.2 10^3/uL (0.0-0.3); EOSINOPHILS % (AUTO) 1 % (0-10); HEMATOCRIT 27 % (40-54); HEMOGLOBIN 8.3 g/dL (13.3-17.7); LYMPHOCYTES # (AUTO) 1.1 10^3/uL (1.0-4.0); LYMPHOCYTES % (AUTO) 10 % (12-44); MEAN CORPUSCULAR HEMOGLOBIN 29 pg (25-34); MEAN CORPUSCULAR HGB CONC 31 g/dL (32-36); MEAN CORPUSCULAR VOLUME 94 fL (80-99); MEAN PLATELET VOLUME 10.5 fL (9.0-12.2); MONOCYTES # (AUTO) 0.8 10^3/uL (0.0-1.0); MONOCYTES % (AUTO) 7 % (0-12); NEUTROPHILS # (AUTO) 9.5 10^3/uL (1.8-7.8); NEUTROPHILS % (AUTO) 79 % (42-75); PLATELET COUNT 279 10^3/uL (130-400)
[2020-10-17 04:44] LABS: ALBUMIN 2.2 GM/DL (3.2-4.5); INR 2.5 (0.8-1.4); POTASSIUM 4.2 MMOL/L (3.6-5.0); PROTHROMBIN TIME PATIENT 27.7 SEC (12.2-14.7)
[2020-10-17 04:46] LABS: CALCIUM 7.3 MG/DL (8.5-10.1)
[2020-10-17 04:47] LABS: TOTAL PROTEIN 4.4 GM/DL (6.4-8.2)
[2020-10-17 04:49] LABS: BILIRUBIN,TOTAL 0.4 MG/DL (0.1-1.0)
[2020-10-17 04:51] LABS: CREATININE SERUM 1.26 MG/DL (0.60-1.30)
[2020-10-17] MEDS: inSUlin ASPART (NovoLOG) 1 UNIT/0.01 ML (CHARGE PER UNIT) SC SCH ×2 (06:00→11:32)
[2020-10-17] MEDS: RT-ALBUTEROL/IPRATROPIUM 3 ML (DUONEB) VIAL IH SCH ×3 (07:00→14:34)
[2020-10-17] MEDS: ADVAIR HFA 115/21 MCG INHALER 8 GM IH SCH (07:01)
--- NOTE | 2020-10-17 07:59 | Progress Note - Cardiology ---
Cardiology SOAP Progress Note Subjective: Sitting up in bed. States SOB is improved. No c/o CP. C/O pedal edema Objective: I&O/Vital Signs 10/17/20 10/17/20 10/17/20 10/17/20 00:00 03:57 07:03 07:59 Temp 36.4 36.7 Pulse 84 82 Resp 18 20 B/P (MAP) 120/59 (79) 128/60 (82) Pulse Ox 93 95 94 O2 Delivery High Flow N/C High Flow N/C Nasal Cannula High Flow N/C O2 Flow Rate 5.00 5.00 4.00 4.00 10/17/20 08:00 Temp 35.9 Pulse 92 Resp 20 B/P (MAP) 134/62 (86) Pulse Ox 90 O2 Delivery High Flow N/C O2 Flow Rate 5.00 10/17/20 00:00 Intake Total 1380 ml Output Total 400 ml Balance 980 ml Constitutional: AAO x 3, well-nourished Respiratory: No accessory muscle use, No respiratory distress; chest is bilaterally symmetric, other (Decreased breath sounds bilaterally) Cardiovascular: regular rate-rhythm, S1 and S2, systolic murmur Gastrointestional: No tender; soft, round, audible bowel sounds Extremities: normal inspection, swelling (bilat pitting pedal edema) Neurologic/Psychiatric: grossly intact (moves extremities) Skin: No rash on exposed areas, No ulcerations on exposed areas Results/Procedures: Labs Laboratory Tests 10/16/20 12:06: Glucometer 244H 10/16/20 16:59: Glucometer 157H 10/16/20 19:58: Glucometer 301H 10/17/20 04:10: White Blood Count 12.0H, Red Blood Count 2.85L, Hemoglobin 8.3L, Hematocrit 27L, Mean Corpuscular Volume 94, Mean Corpuscular Hemoglobin 29, Mean Corpuscular Hemoglobin Concent 31L, Red Cell Distribution Width 16.8H, Platelet Count 279, Mean Platelet Volume 10.5, Immature Granulocyte % (Auto) 3, Neutrophils (%) (Auto) 79H, Lymphocytes (%) (Auto) 10L, Monocytes (%) (Auto) 7, Eosinophils (%) (Auto) 1, Basophils (%) (Auto) 0, Neutrophils # (Auto) 9.5H, Lymphocytes # (Auto) 1.1, Monocytes # (Auto) 0.8, Eosinophils # (Auto) 0.2, Basophils # (Auto) 0.0, Immature Granulocyte # (Auto) 0.3H, Prothrombin Time 27.7H, INR Comment 2.5H, Sodium Level 139, Potassium Level 4.2, Chloride Level 100, Carbon Dioxide Level 30, Anion Gap 9, Blood Urea Nitrogen 42H, Creatinine 1.26, Estimat Glomerular Filtration Rate 55, BUN/Creatinine Ratio 33, Glucose Level 138H, Calcium Level 7.3L, Corrected Calcium 8.7, Total Bilirubin 0.4, Aspartate Amino Transf (AST/SGOT) 25, Alanine Aminotransferase (ALT/SGPT) 34, Alkaline Phosphatase 89, Total Protein 4.4L, Albumin 2.2L 10/17/20 05:40: Glucometer 184H Microbiology 10/05/20 Blood Culture - Final, Complete No growth Laboratory Tests 10/16/20 05:00 10/17/20 04:10 A/P: Assessment: Pneumonia - management per pulmonary/medical services Anemia of undetermined etiology - underwent EGD showing mild gastritis. PAF, currently sinus rhythm, OAC with warfarin, INR therapeutic EKG of 09-29-2020 showed RBBB of unknown length of time Echocardiogram of Sep 28, 2020 showed LVEF 55-65%. 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 Perez Plan: Monitor INR closely Give additional IV Lasix today Monitor lab closely Further recs will be based on his hospital course We have reviewed the records from Dr. Fabian in detail VERONICA POST Oct 17, 2020 07:59
[2020-10-17 08:00] VITALS: BP 134/62
[2020-10-17] MEDS: NYSTATIN ORAL SUSP 5 ML UDC PO SCH ×2 (09:36→15:54)
[2020-10-17] MEDS: MULTIVIT W/MINERALS TAB (THERAGRAN M) PO SCH (09:36)
[2020-10-17] MEDS: PANTOPRAZOLE 40 MG (PROTONIX) TAB PO SCH (09:36)
[2020-10-17] MEDS: FUROSEMIDE 40 MG/4 ML INJ (LASIX) IV SCH (09:36)
[2020-10-17] MEDS: FOLIC ACID 1 MG TAB PO SCH (09:36)
[2020-10-17] MEDS: SENNA W/DOCUSATE (SENOKOT S) TABLET PO SCH (09:37)
[2020-10-17] MEDS: SALIVA STIMULANT MOUTH SPRAY (BIOTENE) 1.5 OZ MM SCH ×2 (09:37→15:54)
[2020-10-17] MEDS: FLUTICASONE NASAL SPRAY (FLONASE) 16 GM BTL NS SCH (09:37)
[2020-10-17] MEDS: NYSTATIN CREAM (MYCOSTATIN) 30 GM TUBE TP SCH ×2 (09:37→15:54)
[2020-10-17] MEDS: polyethylene glycoL POWDER 17 GM (MIRALAX) PACK PO SCH (09:37)
[2020-10-17] MEDS ORDERED: FUROSEMIDE 40 MG/4 ML INJ (LASIX) IVP ONE (10:15)
[2020-10-17] MEDS ORDERED: FLUT16SP22 NS (10:32)
[2020-10-17] MEDS ORDERED: FOLI1TAB24 PO (10:32)
[2020-10-17] MEDS ORDERED: SALI45SP MM (10:32)
[2020-10-17] MEDS ORDERED: NYST15CR TP (10:32)
[2020-10-17] MEDS ORDERED: SENN-20 PO (10:32)
[2020-10-17] MEDS ORDERED: PANT40TA52 PO (10:32)
[2020-10-17] MEDS ORDERED: IPRA3AMP31 IH (10:32)
[2020-10-17] MEDS ORDERED: NYST1000 PO (10:32)
[2020-10-17] MEDS ORDERED: FLUT12AE4 IH (10:32)
--- NOTE | 2020-10-17 10:33 | Discharge Inst-Skilled Nursing ---
Discharge Inst-Skilled NF Reconcile Patient Problems Problems Reviewed?: Yes Chief Complaint CC: Dyspnea HPI: This is an 80yoWM who was transferred from [facility] to 4th floor then to [facility] due to revoking DNR status from [facility] who is currently on broad spectrum abx and on max Vapotherm at 40 liters and 100% Patient currently asking me what his chances of recovery is and after a heartfelt conversation I told him low probability of recovery. Palliative care nurse consulted. 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 He acquired B/L pneumonia, placed on Meropenem and Vancomycin. Dr. Gamble was consulted. Oxygen supplementation was maintained and close monitoring with IV Lasix and IV steroids. He had a drop in Hgb requiring transfusion. Dr. Smith was consulted. EGD and colonoscopy were planned EGD revealed no source of bleeding but colonoscopy was not a good prep so it was unable to be done and attempted again today and the decision was made because of his oxygen requirement that he would be unable to proceed on with the colonoscopy considering his advanced and rapid progression with ABG hypoxemia 49 with normal pH he was transferred up to 4th floor. He remains a DNR as he had placed at [facility]. I did talk to Vanessa his daughter in depth for the second time today regarding his status that was rapidly deteriorating. Dr. Gamble saw him in a consultation and agreed with the plan but his prognosis remained very guarded and she had been reporting two times he was in poor prognosis before but he has little reserve and significant hypoxemia requiring Vapotherm. The prognosis is very poor. Patient Instructions Patient Problems: Severe COPD Goal: [place] Consult/Follow Up/Orders Follow Up Appt.: PCP Skilled NF Admit to: Via [facility] Certification (SNF) I certify that SNF services are required to be given on an inpatient basis because of the above named patient's need for nursing home care on a continuing basis for the conditions(s) for which he/she was receiving inpatient hospital services prior to his/her transfer to the SNF. [facility] Facility Order: Nursing Services, Maintenance Repairer-Evaluate & Treat, Physical Therapy-Evaluate & Treat Oxygen Delivery Method: Nasal Cannula Discharge Diet: No Restrictions Daily Activity as Tolerated: Yes Resuscitation Status: Full Code New & Resume Previous Orders New Medications: Fluticasone Propionate (Fluticasone Propionate) 16 Gm Hutchinson.susp 0 SPRAY NS BID for 30 Days, SPRAY Fluticasone/Salmeterol (Advair Hfa 115-21 Mcg Inhaler) 12 Gm Hfa.aer.ad 0 PUFF IH RTBID for 30 Days, GM Folic Acid (Folic Acid) 1 Mg Tablet 1 MG PO DAILY for 30 Days, TAB Ipratropium/Albuterol Sulfate (Iprat-Albut 0.5-3(2.5) mg/3 ml) 3 Ml Ampul.neb 3 ML IH RTQID for 30 Days, INHALER Nystatin (Nystatin) 100,000 Unit/1 Ml Oral.susp 5 ML PO QID for 7 Days, ML Nystatin (Nystatin) 15 Gm Cream..g. 0 GM TP TID for 7 Days, TUBE Pantoprazole Sodium (Pantoprazole Sodium) 40 Mg Tablet.dr 40 MG PO BID for 30 Days, TAB Saliva Stimulant Agents Comb.3 (Biotene Moisturizing Mouth) 1 Each Hutchinson 0 EACH MM TID for 30 Days, SPRAY Sennosides/Docusate Sodium (Senna-Time S Tablet) 1 Each Tablet 1 EA PO BID for 30 Days, TAB Continued Medications: Acetaminophen (Tylenol Arthritis) 650 Mg Tablet.er 650 MG PO Q6H PRN for PAIN-MILD (1-4) OR TEMPATURE, TAB Atorvastatin Calcium (Atorvastatin Calcium) 40 Mg Tablet 40 MG PO HS, TAB Furosemide (Furosemide) 40 Mg Tablet 40 MG PO DAILY, TAB Multivitamin with Minerals (Multivitamins with Minerals) 1 Each Tablet 1 EACH PO DAILY, TAB Potassium Chloride (K-Tab ER) 10 Meq Tablet.er 10 MEQ PO DAILY, TAB Warfarin Sodium (Warfarin Sodium) 1 Mg Tablet 1 MG PO 1700, TAB Discontinued Medications: Amiodarone HCl (Amiodarone HCl) 200 Mg Tablet 200 MG PO BID, TAB LAST FILLED 07-27-2020 #60/30 DAY SUPPLY Marissa Perez Oct 17, 2020 10:32 MARISSA PEREZ DO Oct 17, 2020 10:33
--- NOTE | 2020-10-17 11:14 | Discharge Summary ---
Diagnosis/Chief Complaint Date of Admission Oct 05, 2020 at 13:27 Date of Discharge Discharge Date: Oct 17, 2020 Discharge Diagnosis Assessment: Acute on chronic respiratory failure Pulmonary fibrosis on CT scan Anemia Severe myopathy Severe weakness Plan: 10/12/20: Unable to withstand 3 hour requirement for IRF Needs slower recovery at NH 10/13/20: DC abx PT OT Monitor closely Needs NH Needs DNR 10/14/20: Skilled care will be pursued 10/15/20: Monitor labs O2 PT OT 10/16/20: NHP Discharge Summary Discharge Physical Examination Allergies: Coded Allergies: No Allergy Information Available (Unverified , 09/28/20) Vitals & I&Os Vital Signs Date Time Temp Pulse Resp B/P (MAP) Pulse Ox O2 Delivery O2 Flow Rate FiO2 10/17/20 16:53 36.0 88 18 138/60 95 Nasal Cannula 4.00 General Appearance: Alert, Cooperative Respiratory: Clear to Auscultation Cardiovascular: Regular Rate Psych/Mental Status: Mental Status NL Hospital Course Was the Problem List Reviewed?: Yes Hospital Course: Pt had a very lengthy hospital course on 4th floor that started out in cardiac stepdown due to significant hypoxia requiring max vapotherm oxygen due to acute on chronic lung disease. IgG antibodies for covid were negative and CT scan showed pulmonary fibrosis and bronchiectasis. Dr. Gamble and cardiology followed along with me and in reality he was assessed to be a jail candidate, was not able to receive 3 hours of PT and inpatient rehab to return there so reluctantly conversation with family and the pt on the phone ultimately gave rise to a referral to [facility] [place] which was reasonable and I foresee him being a [facility] patient there but regardless he was maintained on 4-5 liters of O2, maintained on diuretics, in addition steroids until tapered down. He finished IV antibiotics of Meropenem and Vanc and pt was deemed stable for DC to [facility] on skilled. Labs (last 24 hrs) Laboratory Tests 10/05/20 14:00: Lactic Acid Level 0.91 10/05/20 14:02: White Blood Count 18.2H, Red Blood Count 3.42L, Hemoglobin 10.1L, Hematocrit 33L , Mean Corpuscular Volume 97, Mean Corpuscular Hemoglobin 30, Mean Corpuscular Hemoglobin Concent 31L, Red Cell Distribution Width 18.2H, Platelet Count 139, Mean Platelet Volume 10.5, Immature Granulocyte % (Auto) 1, Neutrophils (%) (Auto) 95H, Lymphocytes (%) (Auto) 1L, Monocytes (%) (Auto) 3, Eosinophils (%) (Auto) 0, Basophils (%) (Auto) 0, Neutrophils # (Auto) 17.3H, Lymphocytes # (Auto) 0.2L, Monocytes # (Auto) 0.5, Eosinophils # (Auto) 0.0, Basophils # (Auto) 0.0, Immature Granulocyte # (Auto) 0.2H, Neutrophils % (Manual) 98, Lymphocytes % (Manual) 1, Monocytes % (Manual) 1, Blood Morphology Comment NORMAL, Sodium Level 139, Potassium Level 3.8, Chloride Level 105, Carbon Dioxi de Level 25, Anion Gap 9, Blood Urea Nitrogen 28H, Creatinine 0.85, Estimat Glomerular Filtration Rate > 60, BUN/Creatinine Ratio 33, Glucose Level 261H, Calcium Level 7.5L, Corrected Calcium 8.7, Total Bilirubin 0.6, Aspartate Amino Transf (AST/SGOT) 33, Alanine Aminotransferase (ALT/SGPT) 73H, Alkaline Phosphatase 100, Total Protein 5.0L, Albumin 2.5L, Procalcitonin 0.22H 10/05/20 20:49: Glucometer 224H 10/06/20 04:20: White Blood Count 12.9H, Red Blood Count 2.90L, Hemoglobin 8.7L, Hematocrit 28L, Mean Corpuscular Volume 97, Mean Corpuscular Hemoglobin 30, Mean Corpuscular Hemoglobin Concent 31L, Red Cell Distribution Width 18.0H, Platelet Count 135, Mean Platelet Volume 10.4, Immature Granulocyte % (Auto) 1, Neutrophils (%) (Auto) 88H, Lymphocytes (%) (Auto) 5L, Monocytes (%) (Auto) 6, Eosinophils (%) (Auto) 1, Basophils (%) (Auto) 0, Neutrophils # (Auto) 11.3H, Lymphocytes # (Auto) 0.6L, Monocytes # (Auto) 0.8, Eosinophils # (Auto) 0.1, Basophils # (Auto) 0.0, Immature Granulocyte # (Auto) 0.1, Sodium Level 140, Potassium Level 4.0, Chloride Level 107, Carbon Dioxide Level 27, Anion Gap 6, Blood Urea Nitrogen 25H, Creatinine 1.07, Estimat Glomerular Filtration Rate > 60, BUN/Creatinine Ratio 23, Glucose Level 125H, Calcium Level 7.1L, Corrected Calcium 8.6, Total Bilirubin 0.4, Aspartate Amino Transf (AST/SGOT) 26, Alanine Aminotransferase (ALT/SGPT) 58H, Alkaline Phosphatase 82, Total Protein 4.3L, Albumin 2.1L, Prothrombin Time 32.8H, INR Comment 3.2H, B-Type Natriuretic Peptide 201.6H 10/06/20 06:28: Blood Gas Puncture Site RGHT RAD, Blood Gas Patient Temperature 36.4, Arterial Blood pH 7.42, Arterial Blood Partial Pressure CO2 45, Arterial Blood Partial Pressure O2 74L, Arterial Blood HCO3 29H, Arterial Blood Total CO2 30.0, Arterial Blood Oxygen Saturation 96, Arterial Blood Base Excess 4.1H, Iker Test POS, Blood Gas Ventilator Setting NO, Blood Gas Inspired Oxygen 40L 10/06/20 10:49: Glucometer 201H 10/06/20 14:57: Vancomycin Level Trough 31.1*H 10/06/20 15:53: Glucometer 142H 10/06/20 20:36: Glucometer 232H 10/07/20 03:40: SARS-CoV-2 IgG Antibody Negative 10/07/20 03:50: White Blood Count 9.9, Red Blood Count 2.85L, Hemoglobin 8.7L, Hematocrit 28L, Mean Corpuscular Volume 98, Mean Corpuscular Hemoglobin 31, Mean Corpuscular Hemoglobin Concent 31L, Red Cell Distribution Width 17.9H, Platelet Count 139, Mean Platelet Volume 11.5, Immature Granulocyte % (Auto) 1, Neutrophils (%) (Auto) 84H, Lymphocytes (%) (Auto) 6L, Monocytes (%) (Auto) 7, Eosinophils (%) (Auto) 2, Basophils (%) (Auto) 0, Neutrophils # (Auto) 8.4H, Lymphocytes # (Auto) 0.6L, Monocytes # (Auto) 0.7, Eosinophils # (Auto) 0.2, Basophils # (Auto) 0.0, Immature Granulocyte # (Auto) 0.1, Sodium Level 142, Potassium Level 3.3L, Chloride Level 106, Carbon Dioxide Level 28, Anion Gap 8, Blood Urea Nitrogen 24H, Creatinine 0.91, Estimat Glomerular Filtration Rate > 60, BUN/Creatinine Ratio 26, Glucose Level 90, Calcium Level 7.3L, Corrected Calcium 8.8, Total Bilirubin 0.6, Aspartate Amino Transf (AST/SGOT) 26, Alanine Aminotransferase (ALT/SGPT) 50, Alkaline Phosphatase 81, Total Protein 4.3L, Albumin 2.1L 10/07/20 04:46: Prothrombin Time 27.1H, INR Comment 2.5H 10/07/20 06:10: Blood Gas Puncture Site RIGHT RADIAL, Blood Gas Patient Temperature 36.6, Arterial Blood pH 7.39, Arterial Blood Partial Pressure CO2 51H, Arterial Blood Partial Pressure O2 84, Arterial Blood HCO3 31H, Arterial Blood Total CO2 32.4H, Arterial Blood Oxygen Saturation 97, Arterial Blood Base Excess 6.0H, Iker Test POSITIVE, Blood Gas Ventilator Setting YES, Blood Gas Inspired Oxygen 100 10/07/20 08:15: Vancomycin Level Trough 23.2H 10/07/20 10:55: Glucometer 214H 10/07/20 16:03: Glucometer 106 10/07/20 20:44: Glucometer 285H 10/08/20 06:05: White Blood Count 9.7, Red Blood Count 2.83L, Hemoglobin 8.6L, Hematocrit 28L, Mean Corpuscular Volume 98, Mean Corpuscular Hemoglobin 30, Mean Corpuscular Hemoglobin Concent 31L, Red Cell Distribution Width 17.8H, Platelet Count 132, Mean Platelet Volume 10.6, Prothrombin Time 28.4H, INR Comment 2.6H, Sodium Level 142, Potassium Level 3.9, Chloride Level 104, Carbon Dioxide Level 31, Anion Gap 7, Blood Urea Nitrogen 22H, Creatinine 0.91, Estimat Glomerular Filtration Rate > 60, BUN/Creatinine Ratio 24, Glucose Level 148H, Calcium Level 7.3L, Corrected Calcium 8.7, Total Bilirubin 0.5, Aspartate Amino Transf (AST/SGOT) 24, Alanine Aminotransferase (ALT/SGPT) 47, Alkaline Phosphatase 80, B-Type Natriuretic Peptide 209.5H, Total Protein 4.5L, Albumin 2.2L, Procalciton in 0.20H, Vancomycin Level Trough 16.5 10/08/20 06:30: Blood Gas Puncture Site LEFT RADIAL, Blood Gas Patient Temperature 36.4, Arterial Blood pH 7.44H, Arterial Blood Partial Pressure CO2 51H, Arterial Blood Partial Pressure O2 39*L, Arterial Blood HCO3 35H, Arterial Blood Total CO2 36.5H, Arterial Blood Oxygen Saturation 75L, Arterial Blood Base Excess 10.3H, Iker Test POSITIVE, Blood Gas Ventilator Setting NO, Blood Gas Inspired Oxygen 80 10/08/20 10:40: Glucometer 174H 10/08/20 16:16: Glucometer 166H 10/08/20 20:33: Glucometer 270H 10/09/20 06:44: Glucometer 228H 10/09/20 06:45: Iron Level 22L, Total Iron Binding Capacity 125L, Unsaturated Iron Binding Capacity 103, Transferrin % Saturation 18, Ferritin 1012.0H, Vitamin B12 Level 718, Folate 17.1 10/09/20 10:37: Glucometer 318H 10/09/20 15:42: Glucometer 395H 10/09/20 20:17: Glucometer 372H 10/10/20 06:00: White Blood Count 12.9H, Red Blood Count 2.94L, Hemoglobin 8.9L, Hematocrit 29L, Mean Corpuscular Volume 97, Mean Corpuscular Hemoglobin 30, Mean Corpuscular Hemoglobin Concent 31L, Red Cell Distribution Width 17.2H, Platelet Count 185, Mean Platelet Volume 11.0, Immature Granulocyte % (Auto) 1, Neutrophils (%) (Auto) 94H, Lymphocytes (%) (Auto) 3L, Monocytes (%) (Auto) 2, Eosinophils (%) (Auto) 0, Basophils (%) (Auto) 0, Neutrophils # (Auto) 12.2H, Lymphocytes # (Auto) 0.4L, Monocytes # (Auto) 0.2, Eosinophils # (Auto) 0.0, Basophils # (Auto) 0.0, Immature Granulocyte # (Auto) 0.1, Prothrombin Time 34.0H, INR Comment 3.3H, Sodium Level 145, Potassium Level 4.7, Chloride Level 105, Carbon Dioxide Level 32, Anion Gap 8, Blood Urea Nitrogen 40H, Creatinine 1.10, Estimat Glomerular Filtration Rate > 60, BUN/Creatinine Ratio 36, Glucose Level 261H, Calcium Level 7.7L, Magnesium Level 1.8 10/10/20 06:01: Glucometer 240H 10/10/20 11:54: Glucometer 344H 10/10/20 15:30: Glucometer 269H 10/10/20 20:46: Glucometer 328H 10/11/20 05:10: White Blood Count 12.9H, Red Blood Count 2.86L, Hemoglobin 8.5L, Hematocrit 28L, Mean Corpuscular Volume 96, Mean Corpuscular Hemoglobin 30, Mean Corpuscular Hemoglobin Concent 31L, Red Cell Distribution Width 17.2H, Platelet Count 208, Mean Platelet Volume 10.9, Immature Granulocyte % (Auto) 1, Neutrophils (%) (Auto) 94H, Lymphocytes (%) (Auto) 3L, Monocytes (%) (Auto) 2, Eosinophils (%) (Auto) 0, Basophils (%) (Auto) 0, Neutrophils # (Auto) 12.1H, Lymphocytes # (Auto) 0.4L, Monocytes # (Auto) 0.3, Eosinophils # (Auto) 0.0, Basophils # (Auto) 0.0, Immature Granulocyte # (Auto) 0.1, Prothrombin Time 31.2H, INR Comment 3.0H, Sodium Level 137, Potassium Level 4.3, Chloride Level 100, Carbon Dioxide Level 30, Anion Gap 7, Blood Urea Nitrogen 44H, Creatinine 1.28, Estimat Glomerular Filtration Rate 54, BUN/Creatinine Ratio 34, Glucose Level 296H, Calcium Level 7.5L, Corrected Calcium 8.7, Total Bilirubin 0.4, Aspartate Amino Transf (AST/SGOT) 17, Alanine Aminotransferase (ALT/SGPT) 40, Alkaline Phosphatase 84, Total Protein 5.0L, Albumin 2.5L, Procalcitonin 0.09 10/11/20 11:19: Glucometer 330H 10/11/20 16:28: Glucometer 383H 10/11/20 20:15: Glucometer 258H 10/12/20 02:52: White Blood Count 12.6H, Red Blood Count 2.86L, Hemoglobin 8.4L, Hematocrit 28L, Mean Corpuscular Volume 96, Mean Corpuscular Hemoglobin 29, Mean Corpuscular Hemoglobin Concent 31L, Red Cell Distribution Width 16.9H, Platelet Count 230, Mean Platelet Volume 10.7, Immature Granulocyte % (Auto) 1, Neutrophils (%) (Auto) 92H, Lymphocytes (%) (Auto) 4L, Monocytes (%) (Auto) 3, Eosinophils (%) (Auto) 0, Basophils (%) (Auto) 0, Neutrophils # (Auto) 11.6H, Lymphocytes # (Auto) 0.5L, Monocytes # (Auto) 0.4, Eosinophils # (Auto) 0.0, Basophils # (Auto) 0.0, Immature Granulocyte # (Auto) 0.1, Prothrombin Time 27.4H, INR Comment 2.5H, Sodium Level 139, Potassium Level 4.6, Chloride Level 101, Carbon Dioxide Level 30, Anion Gap 8, Blood Urea Nitrogen 46H, Creatinine 1.20, Estimat Glomerular Filtration Rate 58, BUN/Creatinine Ratio 38, Glucose Level 177H, Calcium Level 7.4L, Corrected Calcium 8.7, Total Bilirubin 0.4, Aspartate Amino Transf (AST/SGOT) 16, Alanine Aminotransferase (ALT/SGPT) 37, Alkaline Phosphatase 81, Total Protein 4.8L, Albumin 2.4L 10/12/20 05:04: Glucometer 198H 10/12/20 10:40: Glucometer 149H 10/12/20 16:49: Glucometer 438*H 10/12/20 20:23: Glucometer 386H 10/13/20 04:45: White Blood Count 11.3H, Red Blood Count 2.86L, Hemoglobin 8.5L, Hematocrit 27L, Mean Corpuscular Volume 94, Mean Corpuscular Hemoglobin 30, Mean Corpuscular Hemoglobin Concent 32, Red Cell Distribution Width 16.5H, Platelet Count 248, Mean Platelet Volume 11.0, Immature Granulocyte % (Auto) 2, Neutrophils (%) (Auto) 90H, Lymphocytes (%) (Auto) 4L, Monocytes (%) (Auto) 4, Eosinophils (%) (Auto) 0, Basophils (%) (Auto) 0, Neutrophils # (Auto) 10.2H, Lymphocytes # (Auto) 0.5L, Monocytes # (Auto) 0.4, Eosinophils # (Auto) 0.0, Basophils # (Auto) 0.0, Immature Granulocyte # (Auto) 0.2H, Neutrophils % (Manual) 93, Lymphocytes % (Manual) 3, Monocytes % (Manual) 4, Anisocytosis SLIGHT, Prothrombin Time 25.6H, INR Comment 2.3H, Sodium Level 138, Potassium Level 4.5, Chloride Level 101, Carbon Dioxide Level 30, Anion Gap 7, Blood Urea Nitrogen 50H, Creatinine 1.18, Estimat Glomerular Filtration Rate 59, BUN/Creatinine Ratio 42, Glucose Level 222H, Calcium Level 7.4L, Corrected Calcium 8.8, Total Bilirubin 0.4, Aspartate Amino Transf (AST/SGOT) 19, Alanine Aminotransferase (ALT/SGPT) 36, Alkaline Phosphatase 87, Total Protein 4.5L, Albumin 2.3L 10/13/20 05:09: Glucometer 223H 10/13/20 10:48: Glucometer 206H 10/13/20 15:53: Glucometer 342H 10/13/20 20:06: Glucometer 397H 10/14/20 05:45: White Blood Count 10.7, Red Blood Count 2.85L, Hemoglobin 8.4L, Hematocrit 27L, Mean Corpuscular Volume 93, Mean Corpuscular Hemoglobin 30, Mean Corpuscular Hemoglobin Concent 32, Red Cell Distribution Width 16.3H, Platelet Count 255, Mean Platelet Volume 10.3, Immature Granulocyte % (Auto) 2, Neutrophils (%) (Auto) 88H, Lymphocytes (%) (Auto) 5L, Monocytes (%) (Auto) 5, Eosinophils (%) (Auto) 0, Basophils (%) (Auto) 0, Neutrophils # (Auto) 9.4H, Lymphocytes # (Auto) 0.6L, Monocytes # (Auto) 0.5, Eosinophils # (Auto) 0.0, Basophils # (Auto) 0.0, Immature Granulocyte # (Auto) 0.2H, Prothrombin Time 28.8H, INR Comment 2.7H, Sodium Level 136, Potassium Level 4.5, Chloride Level 99, Carbon Dioxide Level 30, Anion Gap 7, Blood Urea Nitrogen 49H, Creatinine 1.06, Estimat Glomerular Filtration Rate > 60, BUN/Creatinine Ratio 46, Glucose Level 188H, Calcium Level 7.6L, Corrected Calcium 9.0, Total Bilirubin 0.3, Aspartate Amino Transf (AST/SGOT) 18, Alanine Aminotransferase (ALT/SGPT) 34, Alkaline Phosphatase 88, Total Protein 4.5L, Albumin 2.3L 10/14/20 11:01: Glucometer 195H 10/14/20 15:30: Glucometer 204H 10/14/20 20:21: Glucometer 163H 10/15/20 05:18: Glucometer 146H 10/15/20 05:19: White Blood Count 11.0, Red Blood Count 2.91L, Hemoglobin 8.6L, Hematocrit 27L, Mean Corpuscular Volume 94, Mean Corpuscular Hemoglobin 30, Mean Corpuscular Hemoglobin Concent 32, Red Cell Distribution Width 16.3H, Platelet Count 282, Mean Platelet Volume 10.1, Immature Granulocyte % (Auto) 2, Neutrophils (%) (Auto) 77H, Lymphocytes (%) (Auto) 13, Monocytes (%) (Auto) 7, Eosinophils (%) (Auto) 1, Basophils (%) (Auto) 0, Neutrophils # (Auto) 8.4H, Lymphocytes # (Auto) 1.5, Monocytes # (Auto) 0.8, Eosinophils # (Auto) 0.1, Basophils # (Auto) 0.0, Immature Granulocyte # (Auto) 0.3H, Prothrombin Time 29.0H, INR Comment 2.7H, Sodium Level 137, Potassium Level 4.2, Chloride Level 99, Carbon Dioxide Level 32, Anion Gap 6, Blood Urea Nitrogen 45H, Creatinine 1.02, Estimat Glomerular Filtration Rate > 60, BUN/Creatinine Ratio 44, Glucose Level 138H, Calcium Level 7.5L, Corrected Calcium 8.9, Total Bilirubin 0.5, Aspartate Amino Transf (AST/SGOT) 20, Alanine Aminotransferase (ALT/SGPT) 32, Alkaline Phosphatase 84, Total Protein 4.4L, Albumin 2.2L 10/15/20 11:20: Glucometer 283H 10/15/20 15:31: Glucometer 342H 10/15/20 20:15: Glucometer 322H 10/16/20 05:00: Prothrombin Time 28.4H, INR Comment 2.6H, Sodium Level 138, Potassium Level 4.1, Chloride Level 99, Carbon Dioxide Level 30, Anion Gap 9, Blood Urea Nitrogen 46H , Creatinine 1.02, Estimat Glomerular Filtration Rate > 60, BUN/Creatinine Ratio 45, Glucose Level 132H, Calcium Level 7.5L, Corrected Calcium 8.9, Total Bilirubin 0.4, Aspartate Amino Transf (AST/SGOT) 23, Alanine Aminotransferase (ALT/SGPT) 36, Alkaline Phosphatase 93, Total Protein 4.5L, Albumin 2.3L 10/16/20 12:06: Glucometer 244H 10/16/20 16:59: Glucometer 157H 10/16/20 19:58: Glucometer 301H 10/17/20 04:10: White Blood Count 12.0H, Red Blood Count 2.85L, Hemoglobin 8.3L, Hematocrit 27L, Mean Corpuscular Volume 94, Mean Corpuscular Hemoglobin 29, Mean Corpuscular Hemoglobin Concent 31L, Red Cell Distribution Width 16.8H, Platelet Count 279, Mean Platelet Volume 10.5, Immature Granulocyte % (Auto) 3, Neutrophils (%) (Auto) 79H, Lymphocytes (%) (Auto) 10L, Monocytes (%) (Auto) 7, Eosinophils (%) (Auto) 1, Basophils (%) (Auto) 0, Neutrophils # (Auto) 9.5H, Lymphocytes # (Auto) 1.1, Monocytes # (Auto) 0.8, Eosinophils # (Auto) 0.2, Basophils # (Auto) 0.0, Immature Granulocyte # (Auto) 0.3H, Prothrombin Time 27.7H, INR Comment 2.5H, Sodium Level 139, Potassium Level 4.2, Chloride Level 100, Carbon Dioxide Level 30, Anion Gap 9, Blood Urea Nitrogen 42H, Creatinine 1.26, Estimat Glomerular Filtration Rate 55, BUN/Creatinine Ratio 33, Glucose Level 138H, Calcium Level 7.3L, Corrected Calcium 8.7, Total Bilirubin 0.4, Aspartate Amino Transf (AST/SGOT) 25, Alanine Aminotransferase (ALT/SGPT) 34, Alkaline Phosphatase 89, Total Protein 4.4L, Albumin 2.2L 10/17/20 05:40: Glucometer 184H 10/17/20 11:00: Glucometer 170H Microbiology 10/05/20 Blood Culture - Final, Complete No growth Pending Labs Microbiology Date/Time Source Procedure Growth Status 10/05/20 14:02 Peripheral Rt Ac Blood Culture - Final No growth Complete 10/05/20 14:00 Port Picc Blood Culture - Final No growth Complete Laboratory Tests 10/05/20 14:00: Lactic Acid Level 0.91 10/05/20 14:02: White Blood Count 18.2, Red Blood Count 3.42, Hemoglobin 10.1, Hematocrit 33, Mean Corpuscular Volume 97, Mean Corpuscular Hemoglobin 30, Mean Corpuscular Hemoglobin Concent 31, Red Cell Distribution Width 18.2, Platelet Count 139, Mean Platelet Volume 10.5, Immature Granulocyte % (Auto) 1, Neutrophils (%) (Auto) 95, Lymphocytes (%) (Auto) 1, Monocytes (%) (Auto) 3, Eosinophils (%) (Auto) 0, Basophils (%) (Auto) 0, Neutrophils # (Auto) 17.3, Lymphocytes # (Auto) 0.2, Monocytes # (Auto) 0.5, Eosinophils # (Auto) 0.0, Basophils # (Auto) 0.0, Immature Granulocyte # (Auto) 0.2, Neutrophils % (Manual) 98, Lymphocytes % (Manual) 1, Monocytes % (Manual) 1, Blood Morphology Comment NORMAL, Sodium Level 139, Potassium Level 3.8, Chloride Level 105, Carbon Dioxide Level 25, Anion Gap 9, Blood Urea Nitrogen 28, Creatinine 0.85, Estimat Glomerular Filtration Rate > 60, BUN/Creatinine Ratio 33, Glucose Level 261, Calcium Level 7.5, Corrected Calcium 8.7, Total Bilirubin 0.6, Aspartate Amino Transf (AST/SGOT) 33, Alanine Aminotransferase (ALT/SGPT) 73, Alkaline Phosphatase 100, Total Protein 5.0, Albumin 2.5, Procalcitonin 0.22 10/05/20 20:49: Glucometer 224 10/06/20 04:20: White Blood Count 12.9, Red Blood Count 2.90, Hemoglobin 8.7, Hematocrit 28, Mean Corpuscular Volume 97, Mean Corpuscular Hemoglobin 30, Mean Corpuscular Hemoglobin Concent 31, Red Cell Distribution Width 18.0, Platelet Count 135, Mean Platelet Volume 10.4, Immature Granulocyte % (Auto) 1, Neutrophils (%) (Auto) 88, Lymphocytes (%) (Auto) 5, Monocytes (%) (Auto) 6, Eosinophils (%) (Auto) 1, Basophils (%) (Auto) 0, Neutrophils # (Auto) 11.3, Lymphocytes # (Auto) 0.6, Monocytes # (Auto) 0.8, Eosinophils # (Auto) 0.1, Basophils # (Auto) 0.0, Immature Granulocyte # (Auto) 0.1, Sodium Level 140, Potassium Level 4.0, Chloride Level 107, Carbon Dioxide Level 27, Anion Gap 6, Blood Urea Nitrogen 25, Creatinine 1.07, Estimat Glomerular Filtration Rate > 60, BUN/Creatinine Ratio 23, Glucose Level 125, Calcium Level 7.1, Corrected Calcium 8.6, Total Bilirubin 0.4, Aspartate Amino Transf (AST/SGOT) 26, Alanine Aminotransferase (ALT/SGPT) 58, Alkaline Phosphatase 82, Total Protein 4.3, Albumin 2.1, Prothrombin Time 32.8, INR Comment 3.2, B-Type Natriuretic Peptide 201.6 10/06/20 06:28: Blood Gas Puncture Site HT RAD, Blood Gas Patient Temperature 36.4, Arterial Blood pH 7.42, Arterial Blood Partial Pressure CO2 45, Arterial Blood Partial Pressure O2 74, Arterial Blood HCO3 29, Arterial Blood Total CO2 30.0, Arterial Blood Oxygen Saturation 96, Arterial Blood Base Excess 4.1, Iker Test POS, Blood Gas Ventilator Setting NO, Blood Gas Inspired Oxygen 40L 10/06/20 10:49: Glucometer 201 10/06/20 14:57: Vancomycin Level Trough 31.1 10/06/20 15:53: Glucometer 142 10/06/20 20:36: Glucometer 232 10/07/20 03:40: SARS-CoV-2 IgG Antibody Negative 10/07/20 03:50: White Blood Count 9.9, Red Blood Count 2.85, Hemoglobin 8.7, Hematocrit 28, Mean Corpuscular Volume 98, Mean Corpuscular Hemoglobin 31, Mean Corpuscular Hemoglobin Concent 31, Red Cell Distribution Width 17.9, Platelet Count 139, Mean Platelet Volume 11.5, Immature Granulocyte % (Auto) 1, Neutrophils (%) (Auto) 84, Lymphocytes (%) (Auto) 6, Monocytes (%) (Auto) 7, Eosinophils (%) (Auto) 2, Basophils (%) (Auto) 0, Neutrophils # (Auto) 8.4, Lymphocytes # (Auto) 0.6, Monocytes # (Auto) 0.7, Eosinophils # (Auto) 0.2, Basophils # (Auto) 0.0, Immature Granulocyte # (Auto) 0.1, Sodium Level 142, Potassium Level 3.3, Chloride Level 106, Carbon Dioxide Level 28, Anion Gap 8, Blood Urea Nitrogen 24, Creatinine 0.91, Estimat Glomerular Filtration Rate > 60, BUN/Creatinine Ratio 26, Glucose Level 90, Calcium Level 7.3, Corrected Calcium 8.8, Total Bilirubin 0.6, Aspartate Amino Transf (AST/SGOT) 26, Alanine Aminotransferase (ALT/SGPT) 50, Alkaline Phosphatase 81, Total Protein 4.3, Albumin 2.1 10/07/20 04:46: Prothrombin Time 27.1, INR Comment 2.5 10/07/20 06:10: Blood Gas Puncture Site RIGHT RADIAL, Blood Gas Patient Temperature 36.6, Arterial Blood pH 7.39, Arterial Blood Partial Pressure CO2 51, Arterial Blood Partial Pressure O2 84, Arterial Blood HCO3 31, Arterial Blood Total CO2 32.4, Arterial Blood Oxygen Saturation 97, Arterial Blood Base Excess 6.0, Iker Test POSITIVE, Blood Gas Ventilator Setting YES, Blood Gas Inspired Oxygen 100 10/07/20 08:15: Vancomycin Level Trough 23.2 10/07/20 10:55: Glucometer 214 10/07/20 16:03: Glucometer 106 10/07/20 20:44: Glucometer 285 10/08/20 06:05: White Blood Count 9.7, Red Blood Count 2.83, Hemoglobin 8.6, Hematocrit 28, Mean Corpuscular Volume 98, Mean Corpuscular Hemoglobin 30, Mean Corpuscular Hemoglob in Concent 31, Red Cell Distribution Width 17.8, Platelet Count 132, Mean Platelet Volume 10.6, Prothrombin Time 28.4, INR Comment 2.6, Sodium Level 142, Potassium Level 3.9, Chloride Level 104, Carbon Dioxide Level 31, Anion Gap 7, Blood Urea Nitrogen 22, Creatinine 0.91, Estimat Glomerular Filtration Rate > 60, BUN/Creatinine Ratio 24, Glucose Level 148, Calcium Level 7.3, Corrected Calcium 8.7, Total Bilirubin 0.5, Aspartate Amino Transf (AST/SGOT) 24, Alanine Aminotransferase (ALT/SGPT) 47, Alkaline Phosphatase 80, B-Type Natriuretic Peptide 209.5, Total Protein 4.5, Albumin 2.2, Procalcitonin 0.20, Vancomycin Level Trough 16.5 10/08/20 06:30: Blood Gas Puncture Site LEFT RADIAL, Blood Gas Patient Temperature 36.4, Arterial Blood pH 7.44, Arterial Blood Partial Pressure CO2 51, Arterial Blood Partial Pressure O2 39, Arterial Blood HCO3 35, Arterial Blood Total CO2 36.5, Arterial Blood Oxygen Saturation 75, Arterial Blood Base Excess 10.3, Iker Test POSITIVE, Blood Gas Ventilator Setting NO, Blood Gas Inspired Oxygen 80 10/08/20 10:40: Glucometer 174 10/08/20 16:16: Glucometer 166 10/08/20 20:33: Glucometer 270 10/09/20 06:44: Glucometer 228 10/09/20 06:45: Iron Level 22, Total Iron Binding Capacity 125, Unsaturated Iron Binding Capacity 103, Transferrin % Saturation 18, Ferritin 1012.0, Vitamin B12 Level 718, Folate 17.1 10/09/20 10:37: Glucometer 318 10/09/20 15:42: Glucometer 395 10/09/20 20:17: Glucometer 372 10/10/20 06:00: White Blood Count 12.9, Red Blood Count 2.94, Hemoglobin 8.9, Hematocrit 29, Mean Corpuscular Volume 97, Mean Corpuscular Hemoglobin 30, Mean Corpuscular Hemoglobin Concent 31, Red Cell Distribution Width 17.2, Platelet Count 185, Mean Platelet Volume 11.0, Immature Granulocyte % (Auto) 1, Neutrophils (%) (Auto) 94, Lymphocytes (%) (Auto) 3, Monocytes (%) (Auto) 2, Eosinophils (%) (Auto) 0, Basophils (%) (Auto) 0, Neutrophils # (Auto) 12.2, Lymphocytes # (Auto) 0.4, Monocytes # (Auto) 0.2, Eosinophils # (Auto) 0.0, Basophils # (Auto) 0.0, Immature Granulocyte # (Auto) 0.1, Prothrombin Time 34.0, INR Comment 3.3, Sodium Level 145, Potassium Level 4.7, Chloride Level 105, Carbon Dioxide Level 32, Anion Gap 8, Blood Urea Nitrogen 40, Creatinine 1.10, Estimat Glomerular Filtration Rate > 60, BUN/Creatinine Ratio 36, Glucose Level 261, Calcium Level 7.7, Magnesium Level 1.8 10/10/20 06:01: Glucometer 240 10/10/20 11:54: Glucometer 344 10/10/20 15:30: Glucometer 269 10/10/20 20:46: Glucometer 328 10/11/20 05:10: White Blood Count 12.9, Red Blood Count 2.86, Hemoglobin 8.5, Hematocrit 28, Mean Corpuscular Volume 96, Mean Corpuscular Hemoglobin 30, Mean Corpuscular Hemoglobin Concent 31, Red Cell Distribution Width 17.2, Platelet Count 208, Mean Platelet Volume 10.9, Immature Granulocyte % (Auto) 1, Neutrophils (%) (Auto) 94, Lymphocytes (%) (Auto) 3, Monocytes (%) (Auto) 2, Eosinophils (%) (Auto) 0, Basophils (%) (Auto) 0, Neutrophils # (Auto) 12.1, Lymphocytes # (Auto) 0.4, Monocytes # (Auto) 0.3, Eosinophils # (Auto) 0.0, Basophils # (Auto) 0.0, Immature Granulocyte # (Auto) 0.1, Prothrombin Time 31.2, INR Comment 3.0, Sodium Level 137, Potassium Level 4.3, Chloride Level 100, Carbon Dioxide Level 30, Anion Gap 7, Blood Urea Nitrogen 44, Creatinine 1.28, Estimat Glomerular Filtration Rate 54, BUN/Creatinine Ratio 34, Glucose Level 296, Calcium Level 7.5, Corrected Calcium 8.7, Total Bilirubin 0.4, Aspartate Amino Transf (AST/SGOT) 17, Alanine Aminotransferase (ALT/SGPT) 40, Alkaline Phosphatase 84, Total Protein 5.0, Albumin 2.5, Procalcitonin 0.09 10/11/20 11:19: Glucometer 330 10/11/20 16:28: Glucometer 383 10/11/20 20:15: Glucometer 258 10/12/20 02:52: White Blood Count 12.6, Red Blood Count 2.86, Hemoglobin 8.4, Hematocrit 28, Mean Corpuscular Volume 96, Mean Corpuscular Hemoglobin 29, Mean Corpuscular Hemoglobin Concent 31, Red Cell Distribution Width 16.9, Platelet Count 230, Mean Platelet Volume 10.7, Immature Granulocyte % (Auto) 1, Neutrophils (%) (Auto) 92, Lymphocytes (%) (Auto) 4, Monocytes (%) (Auto) 3, Eosinophils (%) (Auto) 0, Basophils (%) (Auto) 0, Neutrophils # (Auto) 11.6, Lymphocytes # (Auto) 0.5, Monocytes # (Auto) 0.4, Eosinophils # (Auto) 0.0, Basophils # (Auto) 0.0, Immature Granulocyte # (Auto) 0.1, Prothrombin Time 27.4, INR Comment 2.5, Sodium Level 139, Potassium Level 4.6, Chloride Level 101, Carbon Dioxide Level 30, Anion Gap 8, Blood Urea Nitrogen 46, Creatinine 1.20, Estimat Glomerular Filtration Rate 58, BUN/Creatinine Ratio 38, Glucose Level 177, Calcium Level 7.4, Corrected Calcium 8.7, Total Bilirubin 0.4, Aspartate Amino Transf (AST/SGOT) 16, Alanine Aminotransferase (ALT/SGPT) 37, Alkaline Phosphatase 81, Total Protein 4.8, Albumin 2.4 10/12/20 05:04: Glucometer 198 10/12/20 10:40: Glucometer 149 10/12/20 16:49: Glucometer 438 10/12/20 20:23: Glucometer 386 10/13/20 04:45: White Blood Count 11.3, Red Blood Count 2.86, Hemoglobin 8.5, Hematocrit 27, Mean Corpuscular Volume 94, Mean Corpuscular Hemoglobin 30, Mean Corpuscular Hemoglobin Concent 32, Red Cell Distribution Width 16.5, Platelet Count 248, Mean Platelet Volume 11.0, Immature Granulocyte % (Auto) 2, Neutrophils (%) (Auto) 90, Lymphocytes (%) (Auto) 4, Monocytes (%) (Auto) 4, Eosinophils (%) (Auto) 0, Basophils (%) (Auto) 0, Neutrophils # (Auto) 10.2, Lymphocytes # (Auto) 0.5, Monocytes # (Auto) 0.4, Eosinophils # (Auto) 0.0, Basophils # (Auto) 0.0, Immature Granulocyte # (Auto) 0.2, Neutrophils % (Manual) 93, Lymphocytes % (Manual) 3, Monocytes % (Manual) 4, Anisocytosis SLIGHT, Prothrombin Time 25.6, INR Comment 2.3, Sodium Level 138, Potassium Level 4.5, Chloride Level 101, Carbon Dioxide Level 30, Anion Gap 7, Blood Urea Nitrogen 50, Creatinine 1.18, Estimat Glomerular Filtration Rate 59, BUN/Creatinine Ratio 42, Glucose Level 222, Calcium Level 7.4, Corrected Calcium 8.8, Total Bilirubin 0.4, Aspartate Amino Transf (AST/SGOT) 19, Alanine Aminotransferase (ALT/SGPT) 36, Alkaline Phosphatase 87, Total Protein 4.5, Albumin 2.3 10/13/20 05:09: Glucometer 223 10/13/20 10:48: Glucometer 206 10/13/20 15:53: Glucometer 342 10/13/20 20:06: Glucometer 397 10/14/20 05:45: White Blood Count 10.7, Red Blood Count 2.85, Hemoglobin 8.4, Hematocrit 27, Mean Corpuscular Volume 93, Mean Corpuscular Hemoglobin 30, Mean Corpuscular Hemoglobin Concent 32, Red Cell Distribution Width 16.3, Platelet Count 255, Mean Platelet Volume 10.3, Immature Granulocyte % (Auto) 2, Neutrophils (%) (Auto) 88, Lymphocytes (%) (Auto) 5, Monocytes (%) (Auto) 5, Eosinophils (%) (Auto) 0, Basophils (%) (Auto) 0, Neutrophils # (Auto) 9.4, Lymphocytes # (Auto) 0.6, Monocytes # (Auto) 0.5, Eosinophils # (Auto) 0.0, Basophils # (Auto) 0.0, Immature Granulocyte # (Auto) 0.2, Prothrombin Time 28.8, INR Comment 2.7, Sodium Level 136, Potassium Level 4.5, Chloride Level 99, Carbon Dioxide Level 30, Anion Gap 7, Blood Urea Nitrogen 49, Creatinine 1.06, Estimat Glomerular Filtration Rate > 60, BUN/Creatinine Ratio 46, Glucose Level 188, Calcium Level 7.6, Corrected Calcium 9.0, Total Bilirubin 0.3, Aspartate Amino Transf (AST/SGOT) 18, Alanine Aminotransferase (ALT/SGPT) 34, Alkaline Phosphatase 88, Total Protein 4.5, Albumin 2.3 10/14/20 11:01: Glucometer 195 10/14/20 15:30: Glucometer 204 10/14/20 20:21: Glucometer 163 10/15/20 05:18: Glucometer 146 10/15/20 05:19: White Blood Count 11.0, Red Blood Count 2.91, Hemoglobin 8.6, Hematocrit 27, Mean Corpuscular Volume 94, Mean Corpuscular Hemoglobin 30, Mean Corpuscular Hemoglobin Concent 32, Red Cell Distribution Width 16.3, Platelet Count 282, Mean Platelet Volume 10.1, Immature Granulocyte % (Auto) 2, Neutrophils (%) (Auto) 77, Lymphocytes (%) (Auto) 13, Monocytes (%) (Auto) 7, Eosinophils (%) (Auto) 1, Basophils (%) (Auto) 0, Neutrophils # (Auto) 8.4, Lymphocytes # (Auto) 1.5, Monocytes # (Auto) 0.8, Eosinophils # (Auto) 0.1, Basophils # (Auto) 0.0, Immature Granulocyte # (Auto) 0.3, Prothrombin Time 29.0, INR Comment 2.7, Sodium Level 137, Potassium Level 4.2, Chloride Level 99, Carbon Dioxide Level 32, Anion Gap 6, Blood Urea Nitrogen 45, Creatinine 1.02, Estimat Glomerular Filtration Rate > 60, BUN/Creatinine Ratio 44, Glucose Level 138, Calcium Level 7.5, Corrected Calcium 8.9, Total Bilirubin 0.5, Aspartate Amino Transf (AST/SGOT) 20, Alanine Aminotransferase (ALT/SGPT) 32, Alkaline Phosphatase 84, Total Protein 4.4, Albumin 2.2 10/15/20 11:20: Glucometer 283 10/15/20 15:31: Glucometer 342 10/15/20 20:15: Glucometer 322 10/16/20 05:00: Prothrombin Time 28.4, INR Comment 2.6, Sodium Level 138, Potassium Level 4.1, Chloride Level 99, Carbon Dioxide Level 30, Anion Gap 9, Blood Urea Nitrogen 46, Creatinine 1.02, Estimat Glomerular Filtration Rate > 60, BUN/Creatinine Ratio 45, Glucose Level 132, Calcium Level 7.5, Corrected Calcium 8.9, Total Bilirubin 0.4, Aspartate Amino Transf (AST/SGOT) 23, Alanine Aminotransferase (ALT/SGPT) 36, Alkaline Phosphatase 93, Total Protein 4.5, Albumin 2.3 10/16/20 12:06: Glucometer 244 10/16/20 16:59: Glucometer 157 10/16/20 19:58: Glucometer 301 10/17/20 04:10: White Blood Count 12.0, Red Blood Count 2.85, Hemoglobin 8.3, Hematocrit 27, Mean Corpuscular Volume 94, Mean Corpuscular Hemoglobin 29, Mean Corpuscular Hemoglobin Concent 31, Red Cell Distribution Width 16.8, Platelet Count 279, Mean Platelet Volume 10.5, Immature Granulocyte % (Auto) 3, Neutrophils (%) (Auto) 79, Lymphocytes (%) (Auto) 10, Monocytes (%) (Auto) 7, Eosinophils (%) (Auto) 1, Basophils (%) (Auto) 0, Neutrophils # (Auto) 9.5, Lymphocytes # (Auto) 1.1, Monocytes # (Auto) 0.8, Eosinophils # (Auto) 0.2, Basophils # (Auto) 0.0, Immature Granulocyte # (Auto) 0.3, Prothrombin Time 27.7, INR Comment 2.5, Sodium Level 139, Potassium Level 4.2, Chloride Level 100, Carbon Dioxide Level 30, Anion Gap 9, Blood Urea Nitrogen 42, Creatinine 1.26, Estimat Glomerular Filtration Rate 55, BUN/Creatinine Ratio 33, Glucose Level 138, Calcium Level 7.3, Corrected Calcium 8.7, Total Bilirubin 0.4, Aspartate Amino Transf (AST/SGOT) 25, Alanine Aminotransferase (ALT/SGPT) 34, Alkaline Phosphatase 89, Total Protein 4.4, Albumin 2.2 10/17/20 05:40: Glucometer 184 10/17/20 11:00: Glucometer 170 Discharge Home Medications: Active Scripts Active Biotene Moisturizing Mouth (Saliva Stimulant Agents Comb.3) 1 Each [place] 0 Each MM TID 30 Days Folic Acid 1 Mg Tablet 1 Mg PO DAILY 30 Days Nystatin 15 Gm Cream..g. 0 Gm TP TID 7 Days Pantoprazole Sodium 40 Mg Tablet.dr 40 Mg PO BID 30 Days Senna-Time S Tablet (Sennosides/Docusate Sodium) 1 Each Tablet 1 Ea PO BID 30 Days Fluticasone Propionate 16 Gm [place].susp 0 [place] NS BID 30 Days Advair Hfa 115-21 Mcg Inhaler (Fluticasone/Salmeterol) 12 Gm Hfa.aer.ad 0 Puff IH RTBID 30 Days Iprat-Albut 0.5-3(2.5) mg/3 ml (Ipratropium/Albuterol Sulfate) 3 Ml Ampul.neb 3 Ml IH RTQID 30 Days Nystatin 100,000 Unit/1 Ml Oral.susp 5 Ml PO QID 7 Days Reported Atorvastatin Calcium 40 Mg Tablet 40 Mg PO HS K-Tab ER (Potassium Chloride) 10 Meq Tablet.er 10 Meq PO DAILY Furosemide 40 Mg Tablet 40 Mg PO DAILY Tylenol Arthritis (Acetaminophen) 650 Mg Tablet.er 650 Mg PO Q6H PRN Warfarin Sodium 1 Mg Tablet 1 Mg PO 1700 Multivitamins with Minerals (Multivitamin with Minerals) 1 Each Tablet 1 Each PO DAILY Instructions to patient/family Please see electronic discharge instructions given to patient. Diagnosis/Problems Diagnosis/Problems (1) Respiratory insufficiency (2) Warfarin anticoagulation (3) Volume overload (4) Hypoxemia (5) Diabetes mellitus (6) Thrush (7) Atrial fibrillation (8) COPD (chronic obstructive pulmonary disease) (9) Myopathy Status: Acute Clinical Quality Measures DVT/VTE Risk/Contraindication: Risk Factor Score Per Nursin RFS Level Per Nursing on Admit: 4+=Very High Contraindications-Pharm: Other *list below* Other: SAEID FORREST DO Oct 17, 2020 11:13
[2020-10-17 12:00] VITALS: BP 138/60
--- NOTE | 2020-10-17 12:41 | NUR ---
DISCHARGE PLANNING: Patient is to discharge today to new skilled placement at [facility]. Updated his daughter Vanessa on plan and she has not concerns...just medical questions which were answered to the best of my ability. Still awaiting transport time.
--- NOTE | 2020-10-17 14:14 | NUR ---
ATTEMPT TO CALL REPORT TO VIA [facility]. INSTRUCTED TO CALL BACK IN 30 MINUTES BC THEY ARE BUSY.
--- NOTE | 2020-10-17 16:08 | NUR ---
ATTEMPT TO CALL REPORT AGAIN,NO ANSWER.
--- NOTE | 2020-10-17 16:32 | NUR ---
ATTEMPT TO CALL REPORT, NO ONE IS AT [employer] TO REFER THIS RN. RN OPTION A; SPOKE WITH TONIE. TONIE GAVE THIS RN TELEPHONE NUMBER [phone] FOR RN DIRECTLY IN CHARGE. NO ANSWER, LEFT MESSAGE.
--- NOTE | 2020-10-17 16:40 | NUR ---
REPORT CALLED TO [facility].
[2020-10-17 16:53] VITALS: BP 138/60
== END 2020-10-17 16:55 | DRG 189 ==
LOC: 4TH 13:27 → CSD 18:18 → 4TH 10-13 09:30
PROVIDERS: ADMIT Internal Medicine; ATTEND Internal Medicine
DX: J96.21 Acute and chronic respiratory failure with hypoxia (principal); J18.9 Pneumonia, unspecified organism; J81.1 Chronic pulmonary edema; G72.81 Critical illness myopathy; J84.10 Pulmonary fibrosis, unspecified; I48.0 Paroxysmal atrial fibrillation; J44.9 Chronic obstructive pulmonary disease, unspecified; N18.30 Chronic kidney disease, stage 3 unspecified; Z20.828 Contact with and (suspected) exposure to other viral communicable diseases; E11.9 Type 2 diabetes mellitus without complications; K29.70 Gastritis, unspecified, without bleeding; D64.9 Anemia, unspecified; K21.9 Gastro-esophageal reflux disease without esophagitis; E87.6 Hypokalemia; I45.10 Unspecified right bundle-branch block; F41.9 Anxiety disorder, unspecified; F32.9 Major depressive disorder, single episode, unspecified; Z87.891 Personal history of nicotine dependence; Z79.4 Long term (current) use of insulin
CPT/HCPCS: 36415; 36600; 71045; 80048; 80053; 80202; 82607; 82728; 82746; 82805; 82962; 83540; 83605; 83735; 83880; 84145; 85007; 85025; 85027; 85610; 86769; 87040; 94640; 94760

== ENCOUNTER 2020-11-01 14:22 | Emergency (ER) | payer MEDICARE ==
[~2020-11-01] VITALS: Ht 185.4 cm; Wt 89.0 kg
[~2020-11-01 14:22] MED LIST changes: +AMOX1TAB12 PO; +FLUT12AE4 IH; +FLUT16SP22 NS; +FOLI1TAB24 PO; +METF-397 PO; +NYST15CR TP; +PANT40TA52 PO; +PRED10TA22 PO; +SALI45SP MM; +SENN-20 PO
--- NOTE | 2020-11-01 14:53 | ED Respiratory ---
General Chief Complaint: Respiratory Problems Stated Complaint: SOB Nursing Triage Note: PT TO ED PER EMS FROM [facility] STATING RESPIRATORY DISTRESS/HYPOXIA WITH O2 SATS IN THE LOW 80S. Source: patient Exam Limitations: no limitations History of Present Illness Date Seen by Provider: Nov 01, 2020 Time Seen by Provider: 14:42 Initial Comments This is a well appearing 80-year-old male who presents to the ER via [facility] with complaints of increasing shortness of breath and low oxygen sats at the long-term. Patient was discharged from this facility yesterday with post COVID pneumonia, sent home on 4-5 oxygen via [place]. Upon arrival he received breathing tx per EMS and has oxygen sat of 97% with NRB. He c/o of weakness and swelling in his lower extremities. Denies chest pain, nausea/vomiting, diarrhea, abdominal pain. Allergies and Home Medications Allergies Coded Allergies: No Known Drug Allergies (Unverified , 10/23/20) Home Medications Acetaminophen 650 Mg Tablet.er, 650 MG PO Q6H PRN for PAIN-MILD (1-4) OR TEMPATURE, (Reported) Amoxicillin/Potassium Clav 1 Each Tablet, 875 MG PO BID WITH MEALS Prescribed by: DAMON BARKER on 10/31/20 1215 Atorvastatin Calcium 40 Mg Tablet, 40 MG PO HS, (Reported) Fluticasone Propionate 9.9 Ml [place].susp, 1 SPRAY NS BID, (Reported) 1 SPRAY EACH NARE DAILY Fluticasone/Salmeterol 12 Gm Hfa.aer.ad, 1 PUFF IH BID, (Reported) Folic Acid 1 Mg Tablet, 1 MG PO DAILY, (Reported) Furosemide 40 Mg Tablet, 40 MG PO DAILY HOLD UNTIL FOLLOW UP LABS Prescribed by: DAMON BARKER on 10/31/20 1215 Ipratropium/Albuterol Sulfate 3 Ml Ampul.neb, 3 ML IH QID, (Reported) Metformin HCl 500 Mg Tablet, 500 MG PO DAILY Prescribed by: DAMON BARKER on 10/31/20 1215 Multivitamin with Minerals 1 Each Tablet, 1 EACH PO DAILY, (Reported) Nystatin 100,000 Unit/1 Ml Oral.susp, 5 ML PO QID Prescribed by: SAEID JONES on 10/17/20 1032 Nystatin 15 Gm Cream..g., 15 GM TP TID, (Reported) Pantoprazole Sodium 40 Mg Tablet.dr, 40 MG PO BID, (Reported) Potassium Chloride 10 Meq Tablet.er, 10 MEQ PO DAILY HOLD UNTIL FOLLOW UP LABS Prescribed by: DAMON BARKER on 10/31/20 1215 Prednisone 10 Mg Tab.ds.pk, 10 MG PO DAILY Take 6 tabs(60mg)daily,decrease by 1 tab(10mg)every other day. Prescribed by: DAMON BARKER on 10/31/20 1241 Saliva Stimulant Agents Comb.3 1 Each [place], 0 EACH MM TID Prescribed by: SAEID JONES on 10/17/20 1032 Sennosides/Docusate Sodium 1 Each Tablet, 1 EA PO BID Prescribed by: SAEID JONES on 10/17/20 1032 Warfarin Sodium 1 Mg Tablet, 1 MG PO 1700, (Reported) Patient Home Medication List Home Medication List Reviewed: Yes Review of Systems Review of Systems Constitutional: No dizziness, No fever; weakness EENTM: no symptoms reported Respiratory: cough, orthopnea, short of breath; No wheezing Cardiovascular: No chest pain; edema; No syncope Gastrointestinal: no symptoms reported Genitourinary: decreased output; No hematuria, No pain Musculoskeletal: muscle weakness Skin: no symptoms reported Psychiatric/Neurological: No Symptoms Reported Hematologic/Lymphatic: No Symptoms Reported Immunological/Allergic: no symptoms reported Past Himgusv-Fjegkz-Uokoyh Hx Patient Social History Alcohol Beverage of Choice: Beer, [place] Type Used: Cigarettes Former Smoker, Quit: Oct 29, 1979 Recent Foreign Travel: No Contact w/Someone Who Travel: No Recent Infectious Disease Expo: No Recent Hopitalizations: No Immunizations Up To Date PED Vaccines UTD: Yes Date of Pneumonia Vaccine: Jul 27, 2020 Date of Influenza Vaccine: Jul 27, 2020 Seasonal Allergies Seasonal Allergies: No Past Medical History Surgeries: Yes Renal Respiratory: Yes Pneumonia, Pulmonary Embolism Currently Using CPAP: No Currently Using BIPAP: No Cardiac: Yes Atrial Fibrillation, Chronic Edema/Swelling Neurological: No Genitourinary: Yes Renal Failure Gastrointestinal: Yes Gastroesophageal Reflux Musculoskeletal: No Endocrine: Yes Diabetes, Insulin dep HEENT: No Loss of Vision: Denies Hearing Impairment: Hard of Hearing Cancer: No Psychosocial: No Integumentary: Yes Eczema Blood Disorders: No Adverse Reaction/Blood Tranf: No Family Medical History Stroke, Other Conditions/Hx Physical Exam Vital Signs - First Documented 11/01/20 14:26 Temp 36.4 Pulse 86 Resp 24 B/P (MAP) 151/81 (104) Pulse Ox 97 O2 Delivery Non Rebreather O2 Flow Rate 10.00 FiO2 97 Capillary Refill : Less Than 3 Seconds Height: '" Weight: lbs. oz. kg; 25.00 BMI Method: General Appearance: WD/WN, no apparent distress Eyes: Bilateral Eye Normal Inspection, Bilateral Eye PERRL, Bilateral Eye EOMI HEENT: PERRL/EOMI, pharynx normal Neck: non-tender, full range of motion, supple, normal inspection Respiratory: chest non-tender, no respiratory distress, no accessory muscle use, decreased breath sounds Cardiovascular: normal peripheral pulses, irregularly irregular, other (1+ edema bilat. low ext. ) Gastrointestinal: normal bowel sounds, non tender, soft Extremities: normal range of motion, non-tender, normal inspection, normal capillary refill Neurologic/Psychiatric: alert, normal mood/affect, oriented x 3, motor weakness (bilat. lower ext. ) Skin: normal color, warm/dry Focused Exam Lactate Level 11/01/20 15:00: Lactic Acid Level 1.49 Lactic Acid Level Laboratory Tests Test 11/01/20 15:00 Lactic Acid Level 1.49 MMOL/L (0.50-2.00) Procedures/Interventions Date of ETT Placement: Oct 23, 2020 Time of ETT Placement: 2043 Progress/Results/Core Measures Suspected Sepsis Recent Fever Within 48 Hours: No Infection Criteria Present: Documented Infection New/Unexplained Altered Menta: No Sepsis Screen: No Definite Risk SIRS Temperature: Pulse: 86 Respiratory Rate: 24 Laboratory Tests 11/01/20 15:00: White Blood Count 21.6H Blood Pressure 151 /81 Mean: 104 11/01/20 15:00: Lactic Acid Level 1.49 Laboratory Tests 11/01/20 15:00: Creatinine 1.55H, INR Comment 2.0H, Platelet Count 285, Total Bilirubin 0.3 Results/Orders Lab Results Laboratory Tests Test 11/01/20 15:00 11/01/20 15:22 Range/Units White Blood Count 21.6 H 4.3-11.0 10^3/uL Red Blood Count 3.74 L 4.30-5.52 10^6/uL Hemoglobin 11.2 L 13.3-17.7 g/dL Hematocrit 36 L 40-54 % Mean Corpuscular Volume 96 80-99 fL Mean Corpuscular Hemoglobin 30 25-34 pg Mean Corpuscular Hemoglobin Concent 31 L 32-36 g/dL Red Cell Distribution Width 16.1 H 10.0-14.5 % Platelet Count 285 130-400 10^3/uL Mean Platelet Volume 10.8 9.0-12.2 fL Immature Granulocyte % (Auto) 2 % Neutrophils (%) (Auto) 89 H 42-75 % Lymphocytes (%) (Auto) 3 L 12-44 % Monocytes (%) (Auto) 5 0-12 % Eosinophils (%) (Auto) 1 0-10 % Basophils (%) (Auto) 0 0-10 % Neutrophils # (Auto) 19.3 H 1.8-7.8 10^3/uL Lymphocytes # (Auto) 0.5 L 1.0-4.0 10^3/uL Monocytes # (Auto) 1.1 H 0.0-1.0 10^3/uL Eosinophils # (Auto) 0.3 0.0-0.3 10^3/uL Basophils # (Auto) 0.0 0.0-0.1 10^3/uL Immature Granulocyte # (Auto) 0.5 H 0.0-0.1 10^3/uL Neutrophils % (Manual) 91 % Lymphocytes % (Manual) 4 % Monocytes % (Manual) 5 % Blood Morphology Comment NORMAL Prothrombin Time 23.2 H 12.2-14.7 SEC INR Comment 2.0 H 0.8-1.4 Activated Partial Thromboplast Time 40 H 24-35 SEC D-Dimer 0.76 H 0.00-0.49 UG/ML Sodium Level 139 135-145 MMOL/L Potassium Level 4.3 3.6-5.0 MMOL/L Chloride Level 101 98-107 MMOL/L Carbon Dioxide Level 28 21-32 MMOL/L Anion Gap 10 5-14 MMOL/L Blood Urea Nitrogen 32 H 7-18 MG/DL Creatinine 1.55 H 0.60-1.30 MG/DL Estimat Glomerular Filtration Rate 43 BUN/Creatinine Ratio 21 Glucose Level 261 H 70-105 MG/DL Lactic Acid Level 1.49 0.50-2.00 MMOL/L Calcium Level 8.2 L 8.5-10.1 MG/DL Corrected Calcium 9.2 8.5-10.1 MG/DL Total Bilirubin 0.3 0.1-1.0 MG/DL Aspartate Amino Transf (AST/SGOT) 22 5-34 U/L Alanine Aminotransferase (ALT/SGPT) 25 0-55 U/L Alkaline Phosphatase 109 40-136 U/L Troponin I < 0.028 <0.028 NG/ML Total Protein 6.3 L 6.4-8.2 GM/DL Albumin 2.8 L 3.2-4.5 GM/DL Blood Gas Puncture Site RT RAD Blood Gas Patient Temperature 36.5 Arterial Blood pH 7.44 H 7.37-7.43 Arterial Blood Partial Pressure CO2 30 L 35-45 MMHG Arterial Blood Partial Pressure O2 141 H 79-93 MMHG Arterial Blood HCO3 19 L 23-27 MMOL/L Arterial Blood Total CO2 20.2 L 21.0-31.0 MMOL/L Arterial Blood Oxygen Saturation 99 94-100 % Arterial Blood Base Excess -3.8 L -2.5-2.5 MMOL/L Iker Test YES-POS Blood Gas Ventilator Setting NO Blood Gas Inspired Oxygen 6 My Orders Orders - KELLE CEE APRN Cbc With Automated Diff (11/01/20 14:43) Comprehensive Metabolic Panel (11/01/20 14:43) Blood Culture (11/01/20 14:43) Protime With Inr (11/01/20 14:43) Partial Thromboplastin Time (11/01/20 14:43) Chest 1 View, Ap/Pa Only (11/01/20 14:43) Ed Iv/Invasive Line Start (11/01/20 14:43) Troponin I (11/01/20 14:43) O2 (11/01/20 14:43) Lactic Acid Analyzer (11/01/20 14:43) Ekg Tracing (11/01/20 14:43) Monitor-Rhythm Ecg Trace Only (11/01/20 14:43) Fibrin Degradation Products (11/01/20 14:43) Manual Differential (11/01/20 15:00) Arterial Blood Gas (11/01/20 15:38) Vital Signs/I&O 11/01/20 11/01/20 11/01/20 14:26 14:26 18:11 Temp 36.4 Pulse 86 84 Resp 24 18 B/P (MAP) 151/81 (104) 165/95 Pulse Ox 97 95 O2 Delivery Non Rebreather High Flow N/C Nasal Cannula O2 Flow Rate 10.00 6.00 5.00 FiO2 97 Capillary Refill : Less Than 3 Seconds Blood Pressure Mean: 104 Progress Note : Progress Note After finishing breathing tx. oxygen decreased to 5-6 liters via [place], with SpO2 96%. Breathing easy and non labored. Will repeat labs and CXR and compare with discharge. Resting comfortably. Will monitor. Slight edema is likely from holding Lasix d/t PANCHO. CXR shows stable cardiomegaly and diffuse interstitial infiltrates, no change from yesterday. No evidence of failure. WBC and Hgb stable when compared to yesterday. BUN/Creat shows slight improvement with Creat down from 1.60 to 1.55. Ddimer down from 1.8 on 10/23 to 0.76 today. He is stable on his home 5 liters via [place] at 95-96%. Reviewed case with Dr. Barker and agrees patient is stable to discharge back to [facility]. Discussed DC plan with [facility] RN Ryne, to continue prior discharge instructions and continue antibiotics as directed. Patient to have follow up labs this week and follow up with PCP to see about restarting home diuretics. Discussed POC with daughter and she is agreeable with plan. ECG Initial ECG Impression Date: Nov 01, 2020 Initial ECG Impression Time: 14:49 Initial ECG Rate: 83 Initial ECG Rhythm: Normal Sinus (Sinus Arrhythmia) Initial ECG Impression: 1st Degree AV Block Diagnostic Imaging Diagonstic Imaging: Xray Plain Films/CT/US/NM/MRI: chest Comments NAME: SHELLEY ARRIETA [facility] REC#: [id number] PT STATUS: REG ER : 1940 PHYSICIAN: KELLE CEE GROUP PROGRAM MANAGER ADMIT DATE: 11/01/20/ER Signed Date of Exam:11/01/20 CHEST 1 VIEW, AP/PA ONLY INDICATION: Sepsis. TECHNIQUE: A frontal chest was obtained at 3:30 PM and compared to yesterday. FINDINGS: There is cardiomegaly. There is no change in the diffuse interstitial infiltrates throughout both lungs. There is no pneumothorax or gross pleural fluid. IMPRESSION: Stable cardiomegaly and diffuse interstitial infiltrates, no change from yesterday. Dictated by: Dictated on workstation # [id number] Dict: 11/01/20 1545 Trans: 11/01/20 1655 [id number] Interpreted by: RICHMOND CLAUDIO MD Electronically signed by: RICHMOND CLAUDIO MD 11/01/20 1655 Departure Communication (Admissions) Time/Spoke to Consulting Phy: 17:[address] Barker, patient stable to discharge back to [facility] with close follow up as previously directed. Impression Primary Impression: Shortness of breath Additional Impression: Pneumonia Disposition: 03 XFER SNF Condition: Stable Departure-Patient Inst. Decision time for Depature: 17:27 Referrals: JAYCOB JARAMILLO MD (PCP/Family) Primary Care Physician Patient Instructions: Pneumonia, Adult (DC) Add. Discharge Instructions: Plan: 1. Discharge to long-term. Continue physical therapy. 2. Use compression hose and keep legs elevated when sitting. 3. Continue discharge instructions as directed from yesterday. Keep follow up for labs as directed. 4. Return for any new or concerning symptoms. All discharge instructions reviewed with patient and/or family. Voiced understanding. KELLE CEE GROUP PROGRAM MANAGER Nov 01, 2020 14:53
[2020-11-01 15:27] LABS: BASOPHILS % (AUTO) 0 % (0-10); EOSINOPHILS # (AUTO) 0.3 10^3/uL (0.0-0.3); EOSINOPHILS % (AUTO) 1 % (0-10); HEMATOCRIT 36 % (40-54); HEMOGLOBIN 11.2 g/dL (13.3-17.7); LYMPHOCYTES # (AUTO) 0.5 10^3/uL (1.0-4.0); LYMPHOCYTES % (AUTO) 3 % (12-44); MEAN CORPUSCULAR HEMOGLOBIN 30 pg (25-34); MEAN CORPUSCULAR HGB CONC 31 g/dL (32-36); MEAN CORPUSCULAR VOLUME 96 fL (80-99); MEAN PLATELET VOLUME 10.8 fL (9.0-12.2); MONOCYTES # (AUTO) 1.1 10^3/uL (0.0-1.0); MONOCYTES % (AUTO) 5 % (0-12); NEUTROPHILS # (AUTO) 19.3 10^3/uL (1.8-7.8); NEUTROPHILS % (AUTO) 89 % (42-75); PLATELET COUNT 285 10^3/uL (130-400); WHITE BLOOD COUNT 21.6 10^3/uL (4.3-11.0)
--- NOTE | 2020-11-01 15:40 | NUR ---
CARE OF PATIENT TAKEN OVER FROM LEYLA DOBBINS
[2020-11-01 15:46] LABS: ALANINE AMINOTRANSFERASE 25 U/L (0-55); ALBUMIN 2.8 GM/DL (3.2-4.5); ALKALINE PHOSPHATASE 109 U/L (40-136); BILIRUBIN,TOTAL 0.3 MG/DL (0.1-1.0); BUN/CREATININE RATIO 21; CALCIUM 8.2 MG/DL (8.5-10.1); CARBON DIOXIDE 28 MMOL/L (21-32); CHLORIDE 101 MMOL/L (98-107); CREATININE SERUM 1.55 MG/DL (0.60-1.30); GFR ESTIMATED 43; GLUCOSE 261 MG/DL (70-105); POTASSIUM 4.3 MMOL/L (3.6-5.0); SODIUM 139 MMOL/L (135-145); TOTAL PROTEIN 6.3 GM/DL (6.4-8.2)
[2020-11-01 15:47] LABS: ABG BASE EXCESS -3.8 MMOL/L (-2.5-2.5); ABG OXYGEN SATURATION 99 % (94-100); ABG PCO2 30 MMHG (35-45); ABG PH 7.44 (7.37-7.43); ABG PO2 141 MMHG (79-93); ABG TCO2 20.2 MMOL/L (21.0-31.0); ALLENS TEST YES-POS; INSPIRED O2 6; PATIENT TEMP 36.5; VENTILATOR NO
--- NOTE | 2020-11-01 15:47 | Diagnostic Imaging Report ---
INDICATION: Sepsis. TECHNIQUE: A frontal chest was obtained at 3:30 PM and compared to yesterday. FINDINGS: There is cardiomegaly. There is no change in the diffuse interstitial infiltrates throughout both lungs. There is no pneumothorax or gross pleural fluid. IMPRESSION: Stable cardiomegaly and diffuse interstitial infiltrates, no change from yesterday. Dictated by: Dictated on workstation # [id number]
[2020-11-01 16:13] LABS: FIBRIN DEGRADATION PRODUCTS 0.76 UG/ML (0.00-0.49); PROTHROMBIN TIME PATIENT 23.2 SEC (12.2-14.7)
[2020-11-01 16:40] LABS: LYMPHOCYTES % (MANUAL) 4 %; MONOCYTES % (MANUAL) 5 %; NEUTROPHILS % (MANUAL) 91 %; RBC MORPH NORMAL
--- NOTE | 2020-11-01 17:13 | NUR ---
DAUGHTER CALLED UPDATE GIVEN
--- NOTE | 2020-11-01 17:27 | NUR ---
Tammy CEE APRN CALLED AND TALKED WITH [facility] WILL COME GET PATIENT CALLED AND UPDATED DAUGHTER.
--- NOTE | 2020-11-01 17:46 | NUR ---
DAUGHTER CALLED BACK AND Tammy CEE APRN CALLED AND TALKED WITH DAUGHTER.
--- NOTE | 2020-11-01 17:59 | NUR ---
[facility] HERE TO GET PATIENT.
[2020-11-01 18:11] VITALS: BP 165/95
== END 2020-11-01 18:11 ==
LOC: EDUNIT# 14:22 → ER 14:24
DX: U07.1 COVID-19 (principal); J12.82 Pneumonia due to coronavirus disease 2019; R60.0 Localized edema; I48.91 Unspecified atrial fibrillation; K21.9 Gastro-esophageal reflux disease without esophagitis; E11.9 Type 2 diabetes mellitus without complications; Z73.0 Burn-out; Z79.4 Long term (current) use of insulin; Z87.891 Personal history of nicotine dependence; Z86.711 Personal history of pulmonary embolism; Z87.448 Personal history of other diseases of urinary system; Z79.01 Long term (current) use of anticoagulants; Z79.52 Long term (current) use of systemic steroids; Z79.51 Long term (current) use of inhaled steroids
CPT/HCPCS: 36415; 71045; 80053; 82805; 83605; 84484; 85007; 85027; 85379; 85610; 85730; 87040; 93005; 93041

== ENCOUNTER 2020-11-18 21:15 | Inpatient (IN) | payer MEDICARE ==
[~2020-11-18] VITALS: Ht 185.4 cm; Wt 98.4 kg
[~2020-11-18 21:15] MED LIST changes: -FOLI1TAB24 PO; +FOLI1TAB33 PO
[2020-11-18 21:36] LABS: ABG BASE EXCESS 3.3 MMOL/L (-2.5-2.5); ABG OXYGEN SATURATION 99 % (94-100); ABG PCO2 45 MMHG (35-45); ABG PH 7.41 (7.37-7.43); ABG PO2 115 MMHG (79-93); ABG TCO2 28.8 MMOL/L (21.0-31.0)
[2020-11-18 21:42] LABS: BASOPHILS % (AUTO) 0 % (0-10); EOSINOPHILS # (AUTO) 0.3 10^3/uL (0.0-0.3); EOSINOPHILS % (AUTO) 2 % (0-10); HEMATOCRIT 27 % (40-54); HEMOGLOBIN 8.4 g/dL (13.3-17.7); LYMPHOCYTES # (AUTO) 1.1 10^3/uL (1.0-4.0); LYMPHOCYTES % (AUTO) 8 % (12-44); MEAN CORPUSCULAR HEMOGLOBIN 30 pg (25-34); MEAN CORPUSCULAR HGB CONC 31 g/dL (32-36); MEAN CORPUSCULAR VOLUME 95 fL (80-99); MONOCYTES # (AUTO) 1.2 10^3/uL (0.0-1.0); MONOCYTES % (AUTO) 9 % (0-12); NEUTROPHILS # (AUTO) 10.9 10^3/uL (1.8-7.8); NEUTROPHILS % (AUTO) 80 % (42-75); PLATELET COUNT 208 10^3/uL (130-400); WHITE BLOOD COUNT 13.6 10^3/uL (4.3-11.0)
[2020-11-18 21:45] LABS: ALLENS TEST YES-POS; INSPIRED O2 6L; VENTILATOR NO
[2020-11-18 21:46] LABS: PATIENT TEMP 37.6
--- NOTE | 2020-11-18 21:47 | ED Respiratory ---
General Chief Complaint: Respiratory Problems Stated Complaint: LOW O2 Nursing Triage Note: BROUGHT IN BY [facility] FROM [facility] WITH INCREASED SOA. Source: patient, EMS, old records History of Present Illness Date Seen by Provider: Nov 18, 2020 Time Seen by Provider: 21:16 Initial Comments PT ARRIVES VIA EMS FROM [facility] PT C/O SHORTNESS OF BREATH AND LOW O2 SATS HAS COPD, AND PT HAD O2 SAT OF 85% ON 4L/NC ON EMS ARRIVAL AT SCENE. UP TO 98% ON 6L/NC NO CHEST PAIN HAS ONGOING COUGH HAS ONGOING SWELLING IN LEGS/ FEET NO FEVER NO NAUSEA/VOMITING/DIARRHEA PT HAS HAD 5 VISITS HERE SINCE HIS FIRST VISIT 09/28/20--ALL FOR RESPIRATORY ISSUES PT HAD BEEN ADMITTED TO [facility] IN [place] IN JULY 2020, TRANSFERRED TO [facility] IN [place], THEN TO [facility], THEN TRANSFERRED HERE FOR INPATIENT REHAB ON 09/28/20. THE THEN WAS ADMITTED TO VIA [facility] PT HAS REQUIRED MULTIPLE INTUBATIONS AND PLACED ON VENT DURING THIS TIME. LAST TIME HE WAS INTUBATED HERE WAS 10/23/20 AND DISMISSED ON 10/31/20. THEN CAME BACK TO ER 11/01/20 FOR SAME, BUT DID NOT REQUIRE INTUBATION AND WAS SENT BACK TO [facility] AT THAT TIME. PT HAS HAD PERSISTENT INFILTRATES ON CXR, DESPITE AGGRESSIVE TREATMENTS. PT ALSO HAS HISTORY OF ATRIAL FIBRILLATION AND CHF AND IS ON COUMADIN PCP: DR. JARAMILLO Allergies and Home Medications Allergies Coded Allergies: No Known Drug Allergies (Unverified , 10/23/20) Home Medications Acetaminophen 650 Mg Tablet.er, 650 MG PO Q6H PRN for PAIN-MILD (1-4) OR TEMP ATURE, (Reported) Amoxicillin/Potassium Clav 1 Each Tablet, 875 MG PO BID WITH MEALS Prescribed by: DAMON BARKER on 10/31/20 1215 Atorvastatin Calcium 40 Mg Tablet, 40 MG PO HS, (Reported) Fluticasone Propionate 9.9 Ml Speer.susp, 1 SPRAY NS BID, (Reported) 1 SPRAY EACH NARE DAILY Fluticasone/Salmeterol 12 Gm Hfa.aer.ad, 1 PUFF IH BID, (Reported) Folic Acid 1 Mg Tablet, 1 MG PO DAILY, (Reported) Furosemide 40 Mg Tablet, 40 MG PO DAILY HOLD UNTIL FOLLOW UP LABS Prescribed by: DAMON BARKER on 10/31/20 1215 Ipratropium/Albuterol Sulfate 3 Ml Ampul.neb, 3 ML IH QID, (Reported) Metformin HCl 500 Mg Tablet, 500 MG PO DAILY Prescribed by: DAMON BARKER on 10/31/20 1215 Multivitamin with Minerals 1 Each Tablet, 1 EACH PO DAILY, (Reported) Nystatin 100,000 Unit/1 Ml Oral.susp, 5 ML PO QID Prescribed by: SAEID JONES on 10/17/20 1032 Nystatin 15 Gm Cream..g., 15 GM TP TID, (Reported) Pantoprazole Sodium 40 Mg Tablet.dr, 40 MG PO BID, (Reported) Potassium Chloride 10 Meq Tablet.er, 10 MEQ PO DAILY HOLD UNTIL FOLLOW UP LABS Prescribed by: DAMON BARKER on 10/31/20 1215 Prednisone 10 Mg Tab.ds.pk, 10 MG PO DAILY Take 6 tabs(60mg)daily,decrease by 1 tab(10mg)every other day. Prescribed by: DAMON BARKER on 10/31/20 1241 Saliva Stimulant Agents Comb.3 1 Each Speer, 0 EACH MM TID Prescribed by: SAEID JONES on 10/17/20 1032 Sennosides/Docusate Sodium 1 Each Tablet, 1 EA PO BID Prescribed by: SAEID JONES on 10/17/20 1032 Warfarin Sodium 1 Mg Tablet, 1 MG PO 1700, (Reported) Patient Home Medication List Home Medication List Reviewed: Yes Review of Systems Review of Systems Constitutional: No chills, No diaphoresis, No fever; weakness EENTM: no symptoms reported Respiratory: see HPI, cough, dyspnea on exertion, orthopnea, short of breath Cardiovascular: No chest pain; edema; No palpitations Gastrointestinal: No abdominal pain, No diarrhea; loss of appetite; No nausea, No vomiting Genitourinary: no symptoms reported; No decreased output Musculoskeletal: no symptoms reported Skin: other (DECUBITUS ULCERS ON BUTTOCKS) Psychiatric/Neurological: No Symptoms Reported; Denies Headache Hematologic/Lymphatic: No Symptoms Reported Immunological/Allergic: no symptoms reported Past Wgyaxol-Rhlpom-Ordkjn Hx Past Med/Social Hx: Reviewed and Corrections made Patient Social History Alcohol Use: Past History Number of Drinks Today: BB Alcohol Beverage of Choice: Beer, [place] Drug of Choice: DENIES Smoking Status: Former Smoker Type Used: Cigarettes Former Smoker, Quit: Oct 29, 1979 Recent Infectious Disease Expo: No Recent Hopitalizations: No Immunizations Up To Date PED Vaccines UTD: Yes Date of Pneumonia Vaccine: Jul 27, 2020 Date of Influenza Vaccine: Jul 27, 2020 Seasonal Allergies Seasonal Allergies: No Past Medical History Surgeries: Yes Renal Respiratory: Yes (MULTIPLE INTUBATIONS) Pneumonia, Pulmonary Embolism Currently Using CPAP: No Currently Using BIPAP: No Cardiac: Yes (RBBB; CHF) Atrial Fibrillation, Chronic Edema/Swelling, High Cholesterol, Hypertension Neurological: No Genitourinary: Yes Renal Failure Gastrointestinal: Yes Gastroesophageal Reflux Musculoskeletal: No Endocrine: Yes Diabetes, Non-Insulin dep HEENT: No Loss of Vision: Denies Hearing Impairment: Hard of Hearing Cancer: No Psychosocial: Yes Anxiety, Depression Integumentary: Yes Eczema Blood Disorders: Yes (ANEMIA) Adverse Reaction/Blood Tranf: No YES--LAST TRANSFUSION HERE 09/30/20 Family Medical History Stroke, Other Conditions/Hx ADDITIONAL PMH: -ECHOCARDIOGRAM 10/24/20--EF 55-60% -EGD/FLEX SIGMOIDOSCOPY 10/03/20--GASTRITIS, POLYPECTOMY, HEMORRHOIDS NOTED Physical Exam Vital Signs - First Documented Capillary Refill : Less Than 3 Seconds Height: '" Weight: lbs. oz. kg; 25.00 BMI Method: General Appearance: other (GENERALIZED WEAKNESS. MILDLY DYSPNEIC ON ARRIVAL. ) HEENT: PERRL/EOMI, pale conjunctivae (R), pale conjunctivae (L) Neck: normal inspection Respiratory: rales (IN BASES BILATERALLY), other (VERY MILDLY DYSPNIC ON ARRIVAL BUT ABLE TO TALK IN FULL SENTENCES. ) Cardiovascular: no JVD, no murmur, irregularly irregular Gastrointestinal: non tender, soft Extremities: normal range of motion, non-tender, pedal edema (3+ EDEMA BILATERALLY) Neurologic/Psychiatric: no motor/sensory deficits, alert, normal mood/affect, oriented x 3 Skin: warm/dry, pallor, other (MULTIPLE SORES TO ARMS. ) Focused Exam Lactate Level 11/18/20 21:30: Lactic Acid Level 2.55*H Lactic Acid Level Laboratory Tests Test 11/18/20 21:30 Lactic Acid Level 2.55 MMOL/L (0.50-2.00) *H Procedures/Interventions Date of ETT Placement: Oct 23, 2020 Time of ETT Placement: 2043 Progress/Results/Core Measures Suspected Sepsis Recent Fever Within 48 Hours: Yes Infection Criteria Present: Documented Infection New/Unexplained Altered Menta: No Sepsis Screen: Possible Sepsis Risk SIRS Temperature: Pulse: 109 Respiratory Rate: 28 Laboratory Tests 11/18/20 21:30: White Blood Count 13.6H Blood Pressure 149 /78 Mean: 101 11/18/20 21:30: Lactic Acid Level 2.55*H Laboratory Tests 11/18/20 21:30: Creatinine 1.29, INR Comment 1.4, Platelet Count 208, Total Bilirubin 0.4 Results/Orders Lab Results Laboratory Tests Test 11/18/20 21:30 Range/Units White Blood Count 13.6 H 4.3-11.0 10^3/uL Red Blood Count 2.85 L 4.30-5.52 10^6/uL Hemoglobin 8.4 L 13.3-17.7 g/dL Hematocrit 27 L 40-54 % Mean Corpuscular Volume 95 80-99 fL Mean Corpuscular Hemoglobin 30 25-34 pg Mean Corpuscular Hemoglobin Concent 31 L 32-36 g/dL Red Cell Distribution Width 16.2 H 10.0-14.5 % Platelet Count 208 130-400 10^3/uL Mean Platelet Volume 11.0 9.0-12.2 fL Immature Granulocyte % (Auto) 1 % Neutrophils (%) (Auto) 80 H 42-75 % Lymphocytes (%) (Auto) 8 L 12-44 % Monocytes (%) (Auto) 9 0-12 % Eosinophils (%) (Auto) 2 0-10 % Basophils (%) (Auto) 0 0-10 % Neutrophils # (Auto) 10.9 H 1.8-7.8 10^3/uL Lymphocytes # (Auto) 1.1 1.0-4.0 10^3/uL Monocytes # (Auto) 1.2 H 0.0-1.0 10^3/uL Eosinophils # (Auto) 0.3 0.0-0.3 10^3/uL Basophils # (Auto) 0.0 0.0-0.1 10^3/uL Immature Granulocyte # (Auto) 0.1 0.0-0.1 10^3/uL Erythrocyte Sedimentation Rate > 140 H 0-30 MM/HR Prothrombin Time 17.5 H 12.2-14.7 SEC INR Comment 1.4 0.8-1.4 Activated Partial Thromboplast Time 45 H 24-35 SEC D-Dimer 1.21 H 0.00-0.49 UG/ML Blood Gas Puncture Site RIGHT RADIAL Blood Gas Patient Temperature 37.6 Arterial Blood pH 7.41 7.37-7.43 Arterial Blood Partial Pressure CO2 45 35-45 MMHG Arterial Blood Partial Pressure O2 115 H 79-93 MMHG Arterial Blood HCO3 28 H 23-27 MMOL/L Arterial Blood Total CO2 28.8 21.0-31.0 MMOL/L Arterial Blood Oxygen Saturation 99 94-100 % Arterial Blood Base Excess 3.3 H -2.5-2.5 MMOL/L Iker Test YES-POS Blood Gas Ventilator Setting NO Blood Gas Inspired Oxygen 6L Sodium Level 144 135-145 MMOL/L Potassium Level 3.8 3.6-5.0 MMOL/L Chloride Level 107 98-107 MMOL/L Carbon Dioxide Level 26 21-32 MMOL/L Anion Gap 11 5-14 MMOL/L Blood Urea Nitrogen 26 H 7-18 MG/DL Creatinine 1.29 0.60-1.30 MG/DL Estimat Glomerular Filtration Rate 54 BUN/Creatinine Ratio 20 Glucose Level 197 H 70-105 MG/DL Lactic Acid Level 2.55 *H 0.50-2.00 MMOL/L Calcium Level 8.2 L 8.5-10.1 MG/DL Corrected Calcium 9.2 8.5-10.1 MG/DL Magnesium Level 1.4 L 1.6-2.4 MG/DL Total Bilirubin 0.4 0.1-1.0 MG/DL Aspartate Amino Transf (AST/SGOT) 15 5-34 U/L Alanine Aminotransferase (ALT/SGPT) 11 0-55 U/L Alkaline Phosphatase 70 40-136 U/L Lactate Dehydrogenase 279 H 125-220 U/L Troponin I 0.052 H <0.028 NG/ML C-Reactive Protein High Sensitivity 9.23 H 0.00-0.50 MG/DL B-Type Natriuretic Peptide 819.1 H <100.0 PG/ML Total Protein 5.6 L 6.4-8.2 GM/DL Albumin 2.7 L 3.2-4.5 GM/DL Procalcitonin 0.19 H <0.10 NG/ML Coronavirus 2019 ([facility]) Negative Negative Micro Results Microbiology 1/22/21 Influenza Types A,B Antigen (JOSEPHINE) - Final, Complete My Orders Orders - HIEU RIOS DO Ed Iv/Invasive Line Start (11/18/20 21:17) Ekg Tracing (11/18/20 21:17) O2 (11/18/20 21:17) Monitor-Rhythm Ecg Trace Only (11/18/20 21:17) Chest 1 View, Ap/Pa Only (11/18/20 21:17) Cbc With Automated Diff (11/18/20 21:17) Comprehensive Metabolic Panel (11/18/20 21:17) Fibrin Degradation Products (11/18/20 21:17) Procalcitonin (Pct) (11/18/20 21:17) Hs C Reactive Protein (11/18/20 21:17) Erythrocyte Sedimentation Rate (11/18/20 21:17) LDH (11/18/20 21:17) Blood Culture (11/18/20 21:17) Ekg Tracing (11/18/20 21:17) Influenza A And B Antigens (11/18/20 21:17) Arterial Blood Gas (11/18/20 21:17) BNP (11/18/20 21:17) Lactic Acid Analyzer (11/18/20 21:17) Magnesium (11/18/20 21:17) Protime With Inr (11/18/20 21:17) Partial Thromboplastin Time (11/18/20 21:17) Troponin I (11/18/20 21:17) Coronavirus Sars-Cov-2 So 2018 (11/18/20 21:17) Covid 19 Inhouse Test (11/18/20 21:17) Dexamethasone Injection (Decadron Inje (11/18/20 22:15) Furosemide Injection (Lasix Injection) (11/18/20 22:15) Ct Angio Chest W (11/18/20 22:11) Vancomycin Injection (Vancomycin Injecti (11/18/20 22:15) Meropenem (Merrem 500 Mg) (11/18/20 22:15) Ed Iv/Invasive Line Start (11/18/20 22:12) Ns Iv 1000 Ml (Sodium Chloride 0.9%) (11/18/20 22:15) Medications Given in ED Current Medications Medications Dose Ordered Sig/Aide Route Start Time Stop Time Status Last Admin Dose Admin Furosemide 80 mg ONCE ONCE IVP 1/22/21 22:15 11/18/20 22:16 DC 11/18/20 22:35 80 MG Meropenem 500 mg/ Sterile Water 10 ml @ 200 mls/hr ONCE ONCE IV 11/18/20 22:15 11/18/20 22:17 DC 11/18/20 22:35 200 MLS/HR Vancomycin HCl 1000 mg/Sodium Chloride 250 ml @ 250 mls/hr ONCE ONCE IV 11/18/20 22:15 11/18/20 23:14 DC 11/18/20 22:35 250 MLS/HR Vital Signs/I&O 11/18/20 11/18/20 21:25 21:25 Temp 37.6 Pulse 109 Resp 28 B/P (MAP) 149/78 (101) Pulse Ox 97 97 O2 Delivery Nasal Cannula Nasal Cannula O2 Flow Rate 6.00 6.00 Capillary Refill : Less Than 3 Seconds Blood Pressure Mean: 101 Progress Note : Progress Note O2 SATS REMAINED IN MID 90'S ON O2 AT 6L/NC HOWEVER, DROPPED TO 74% ON ROOM AIR ON RETURN FROM CT--QUICKLY BACK UP TO MID 90'S ON 6L/NC PT STATES HE WISHES TO BE A FULL CODE ECG Initial ECG Impression Date: Nov 18, 2020 Initial ECG Impression Time: 22:52 Initial ECG Rate: 99 Initial ECG Comparisson: Unchanged Comment NO P-WAVES BUT RATE FAIRLY REGULAR. RBBB. UNCHANGED FROM PREVIOUS Diagnostic Imaging Comments CXR--PER RADIOLOGIST REPORT AT 2201 FINDINGS: There is cardiomegaly and pulmonary venous congestion. Mixed interstitial and alveolar densities are again seen throughout the lungs with blunting of the costophrenic sulci, greater on the left. There is no evidence of pneumothorax. IMPRESSION: Extensive bilateral pulmonary opacities have not significantly changed. There is also mild pleural fluid, greater on the left. CT CHEST ANGIOGRAM--PER [facility] VIA FAX AT 0 NO P.E. FINDINGS SUGGESTIVE OF CHF INCLUDING MARKED CARDIOMEGALY AND INTERSTITIAL EDEMA WITH SMALL PLEURAL EFFUSIONS. Reviewed: Reviewed by Me Departure Communication (Admissions) 2204--ATTEMPTING TO CONTACT DR. BARKER, HOSPITALIST. MESSAGE LEFT ON CELL 2229--MESSAGE LEFT ON DR. BARKER'S CELL 2249--MESSAGE LEFT ON DR. BARKER'S CELL. 2309--SPOKE WITH NEIGHBORHOOD CONSERVATION OFFICER, REGARDING CONTACTING DR. BARKER. 2945--SPOKE WITH DR. BARKER, ACCEPTS PT FOR ADMIT Impression Primary Impression: Acute on chronic respiratory failure with hypoxia Additional Impressions: CHF (congestive heart failure) Elevated troponin COPD (chronic obstructive pulmonary disease) Anemia Chronic atrial fibrillation Subtherapeutic international normalized ratio (INR) PERSISTENT PULMONARY INFILTRATES Renal insufficiency Lactic acidosis GENERAL DEBILITY Disposition: ADMITTED INPATIENT Condition: Stable Admissions Decision to Admit Reason: Admit from ER (General) Decision to Admit/Date: Nov 18, 2020 Time/Decision to Admit Time: 22:00 Departure-Patient Inst. Referrals: JAYCOB JARAMILLO MD (PCP/Family) Primary Care Physician HIEU RIOS DO Nov 18, 2020 21:47
[2020-11-18 21:50] LABS: ALBUMIN 2.7 GM/DL (3.2-4.5); POTASSIUM 3.8 MMOL/L (3.6-5.0)
[2020-11-18 21:51] LABS: CALCIUM 8.2 MG/DL (8.5-10.1)
[2020-11-18 21:52] LABS: FIBRIN DEGRADATION PRODUCTS 1.21 UG/ML (0.00-0.49); INR 1.4 (0.8-1.4); PROTHROMBIN TIME PATIENT 17.5 SEC (12.2-14.7)
[2020-11-18 21:53] LABS: TOTAL PROTEIN 5.6 GM/DL (6.4-8.2)
[2020-11-18 21:54] LABS: BILIRUBIN,TOTAL 0.4 MG/DL (0.1-1.0)
[2020-11-18 21:56] LABS: CREATININE SERUM 1.29 MG/DL (0.60-1.30)
--- NOTE | 2020-11-18 21:57 | Diagnostic Imaging Report ---
INDICATION: Dyspnea. EXAMINATION: AP view of the chest was obtained. COMPARISON: Study of 11/01/2020. FINDINGS: There is cardiomegaly and pulmonary venous congestion. Mixed interstitial and alveolar densities are again seen throughout the lungs with blunting of the costophrenic sulci, greater on the left. There is no evidence of pneumothorax. IMPRESSION: Extensive bilateral pulmonary opacities have not significantly changed. There is also mild pleural fluid, greater on the left. Dictated by: Dictated on workstation # [id number]
[2020-11-18 22:00] LABS: MAGNESIUM 1.4 MG/DL (1.6-2.4)
[2020-11-18 22:08] LABS: ERYTHROCYTE SEDIMENTATION RATE > 140 MM/HR (0-30)
[2020-11-18] MEDS ORDERED: MEROPENEM 500 MG in WATER (STERILE) FOR INJECTION 10 ML IV ONE (22:15)
[2020-11-18] MEDS ORDERED: FUROSEMIDE 40 MG/4 ML INJ (LASIX) IVP ONE (22:15)
[2020-11-18] MEDS ORDERED: NS IV 1000 ML 1,000 ML IV SCH (22:15)
[2020-11-18] MEDS ORDERED: VANCOMYCIN INJECTION 1,000 MG in NS (IVPB) 250 ML IV ONE (22:15)
[2020-11-18] MEDS ORDERED: NS 100 ML (IVPB) BAG IV ONE (23:00)
[2020-11-18] MEDS ORDERED: IOHEXOL 350 MG/ML 100 ML (OMNIPAQUE 350) VIAL IV ONE (23:00)
[2020-11-18] MEDS ORDERED: HOLD METFORMIN - RECEIVED CONTRAST 20 ML VIAL IV SCH (23:00)
[2020-11-18] MEDS ORDERED: ENOXAPARIN 100 MG/1 ML (LOVENOX) SYR SC ONE (23:30)
[2020-11-19] MEDS ORDERED: ONDANSETRON 4 MG/2 ML (SDV) Z0FRAN IV PRN (00:45)
[2020-11-19] MEDS ORDERED: PHARMACY TO DOSE IV SCH (01:00)
[2020-11-19] MEDS ORDERED: MAGNESIUM 1 GM/100 ML IVPB 200 ML IV ONE (01:16)
[2020-11-19] MEDS: MAGNESIUM 1 GM/100 ML IVPB 100 ML IV SCH ×2 (01:22→01:26)
[2020-11-19] MEDS: 1/2 NS IV SOLUTION 1,000 ML IV SCH ×2 (01:23→17:51)
[2020-11-19] MEDS ORDERED: VANCOMYCIN 1 GM/NS 250 ML IVPB IV NR ×2 (01:30)
[2020-11-19] MEDS ORDERED: RT-ALBUTEROL INHALER HFA (VENTOLIN HFA) 18 GM IH PRN (03:45)
[2020-11-19 03:54] LABS: BASOPHILS % (AUTO) 0 % (0-10); EOSINOPHILS # (AUTO) 0.1 10^3/uL (0.0-0.3); EOSINOPHILS % (AUTO) 0 % (0-10); HEMATOCRIT 28 % (40-54); HEMOGLOBIN 8.6 g/dL (13.3-17.7); LYMPHOCYTES # (AUTO) 0.4 10^3/uL (1.0-4.0); LYMPHOCYTES % (AUTO) 3 % (12-44); MEAN CORPUSCULAR HEMOGLOBIN 30 pg (25-34); MEAN CORPUSCULAR HGB CONC 31 g/dL (32-36); MEAN CORPUSCULAR VOLUME 96 fL (80-99); MEAN PLATELET VOLUME 11.2 fL (9.0-12.2); MONOCYTES # (AUTO) 0.3 10^3/uL (0.0-1.0); MONOCYTES % (AUTO) 2 % (0-12); NEUTROPHILS # (AUTO) 14.7 10^3/uL (1.8-7.8); NEUTROPHILS % (AUTO) 94 % (42-75); PLATELET COUNT 199 10^3/uL (130-400); WHITE BLOOD COUNT 15.7 10^3/uL (4.3-11.0)
[2020-11-19 04:04] LABS: ALBUMIN 2.8 GM/DL (3.2-4.5)
[2020-11-19 04:05] LABS: CALCIUM 8.1 MG/DL (8.5-10.1)
[2020-11-19 04:07] LABS: TOTAL PROTEIN 5.9 GM/DL (6.4-8.2)
[2020-11-19 04:08] LABS: BILIRUBIN,TOTAL 0.5 MG/DL (0.1-1.0)
[2020-11-19 04:10] LABS: CREATININE SERUM 1.22 MG/DL (0.60-1.30); PHOSPHORUS 2.6 MG/DL (2.3-4.7)
[2020-11-19 04:13] LABS: MAGNESIUM 1.9 MG/DL (1.6-2.4)
[2020-11-19 04:29] LABS: BAND NEUTROPHILS 4 %; LYMPHOCYTES % (MANUAL) 4 %; MONOCYTES % (MANUAL) 1 %; NEUTROPHILS % (MANUAL) 91 %; RBC MORPH NORMAL
[2020-11-19] MEDS ORDERED: VANCOMYCIN 1000 MG/VIAL ONE (05:43)
[2020-11-19] MEDS ORDERED: NS (IVPB) 250 ML ONE (05:43)
[2020-11-19 05:45] LABS: BILIRUBIN,URINE NEGATIVE (NEGATIVE); CLARITY,URINE CLEAR; COLOR,URINE YELLOW; GLUCOSE, URINE (UA) NEGATIVE (NEGATIVE); KETONES,URINE NEGATIVE (NEGATIVE); LEUKOCYTE ESTERASE ,URINE NEGATIVE (NEGATIVE); NITRITE,URINE NEGATIVE (NEGATIVE); PROTEIN,URINE NEGATIVE (NEGATIVE)
[2020-11-19] MEDS: MEROPENEM 500 MG in WATER (STERILE) FOR INJECTION 10 ML IV SCH ×3 (05:45→17:53)
[2020-11-19] MEDS: inSUlin ASPART (NovoLOG) 1 UNIT/0.01 ML (CHARGE PER UNIT) SC SCH ×4 (05:46→20:18)
--- NOTE | 2020-11-19 05:52 | History & Physical-Hospitalist ---
History of Present Illness HPI/Chief Complaint CC: Recurrent PNA HPI: This is an 80yoWM known to me from multiple hospital stays including IR[facility] after recurrent PNA required DC from there and ultimately moved to [facility] who presented to the ER with fever and dyspnea and found to have recurrent PNA on CT so placed on abx and moved to ICU due to recurrent intubations in the past. He remains a full code although his lungs remain extremely diseased and multiple conversations about end of life care have been met with resistance from both the patient and family after he had revoked his DNR status in [facility] 3 months ago. Abx maintained. Source: patient, RN/MD, old records Exam Limitations: no limitations Date Seen 11/19/20 Time Seen by a Provider: 11:00 Attending Physician Destiny Marino MD PCP Bebo Reid MD Referring Physician Date of Admission Nov 18, 2020 at 22:20 Home Medications & Allergies Home Medications Reviewed patient Home Medication Reconciliation performed by pharmacy medication reconciliations service center technician and/or nursing. Patients Allergies have been reviewed. Allergies Allergies Coded Allergies No Known Drug Allergies (Iudlshtakq16/27/20) Past Dagpzwu-Dplqar-Bijcoy Hx Past Med/Social Hx: Reviewed Nursing Past Med/Soc Hx, Reviewed and Corrections made Patient Social History Marrital Status: single Employed/Student: retired Alcohol Use: Past History Alcohol Beverage of Choice: Beer, [place] Recreational Drug Use: No Drug of Choice: DENIES Smoking Status: Former Smoker Former Smoker, Quit: Oct 29, 1979 Type Used: Cigarettes Recent Foreign Travel: No Contact w/other who traveled: No Recent Hopitalizations: No Recent Infectious Disease Expo: No Immunizations Up To Date Pediatric: Yes Date of Pneumonia Vaccine: Jul 27, 2020 Date of Influenza Vaccine: Jul 27, 2020 Seasonal Allergies Seasonal Allergies: No Past Medical History Surgeries: Renal Respiratory: COPD, Pneumonia Currently Using CPAP: No Currently Using BIPAP: No Cardiac: Atrial Fibrillation, Chronic Edema/Swelling, High Cholesterol, Hyper tension Genitourinary: Renal Failure Gastrointestinal: Gastroesophageal Reflux Endocrine: Diabetes, Non-Insulin dep Loss of Vision: Denies Hearing Impairment: Hard of Hearing Psychosocial: Anxiety, Depression Skin/Integumentary: Eczema History of Blood Disorders: Yes (ANEMIA) Adverse Reaction to Blood Wang: No Family History Stroke, Other Conditions/Hx ADDITIONAL PMH: -ECHOCARDIOGRAM 10/24/20--EF 55-60% -EGD/FLEX SIGMOIDOSCOPY 10/03/20--GASTRITIS, POLYPECTOMY, HEMORRHOIDS NOTED Review of Systems Constitutional: see HPI, dizziness, fever, weakness Respiratory: cough, dyspnea on exertion Physical Exam Physical Exam Vital Signs Vital Signs - First Documented 11/19/20 03:30 FiO2 28 Capillary Refill : Less Than 3 Seconds Height, Weight, BMI Height: '" Weight: lbs. oz. kg; 26.27 BMI Method: General Appearance: No Apparent Distress, Chronically ill Eyes: Right Eye Normal Inspection, Right Eye PERRL HEENT: PERRL/EOMI, Normal ENT Inspection, Pharynx Normal, Moist Mucous Membranes Neck: Full Range of Motion, Normal Inspection, Non Tender Respiratory: Chest Non Tender, No Accessory Muscle Use, No Respiratory Distress, Crackles, Decreased Breath Sounds Cardiovascular: Regular Rate, Rhythm, No Edema, No Gallop, No JVD, No Murmur, Normal Peripheral Pulses Gastrointestinal: Normal Bowel Sounds, No Organomegaly, No Pulsatile Mass, Non Tender, Soft Back: Normal Inspection, No CVA Tenderness, No Vertebral Tenderness Extremity: Normal Capillary Refill, Normal Inspection, Normal Range of Motion, Non Tender, No Calf Tenderness, No Pedal Edema Neurologic/Psychiatric: Alert, Oriented x3, No Motor/Sensory Deficits, Normal Mood/Affect, Motor Weakness (lower extremities 2/5) Skin: Normal Color, Warm/Dry Lymphatic: No Adenopathy Results Results/Procedures Labs Laboratory Tests 11/18/20 21:30 11/19/20 03:30 11/20/20 03:07 Patient resulted labs reviewed. 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 bleed on CT scan consulted Dr Osuna Plan: Monitor lung function since VDRF in past multiple times Monitor creat INR Admission Status: Inpatient Order (span 2 midnights) Reason for Inpatient Admission: pna with resp insuff Diagnosis/Problems Diagnosis/Problems (1) Acute on chronic respiratory failure with hypoxia Status: Acute (2) Elevated troponin Status: Acute (3) Chronic atrial fibrillation Status: Acute (4) Renal insufficiency Status: Acute (5) CHF (congestive heart failure) Status: Acute (6) COPD (chronic obstructive pulmonary disease) (7) Pneumonia Status: Acute SAEID JONES DO Nov 19, 2020 05:52
[2020-11-19 06:21] LABS: BACTERIA,URINE NEGATIVE /HPF; RBC,URINE RARE /HPF; SQUAMOUS EPITHELIAL CELL,UR RARE /HPF
[2020-11-19] MEDS ORDERED: FUROSEMIDE 40 MG/4 ML INJ (LASIX) IV NR (07:00)
[2020-11-19] MEDS: RT-ALBUTEROL INHALER HFA (VENTOLIN HFA) 18 GM IH SCH ×5 (07:04→22:48)
--- NOTE | 2020-11-19 07:12 | Diagnostic Imaging Report ---
PROCEDURE: CT angiography of the chest with contrast. TECHNIQUE: Multiple contiguous axial images were obtained through the chest after uneventful bolus administration of intravenous contrast. 3D reconstructed CTA MIP acquisitions were also performed. Auto Exposure Controls were utilized during the CT exam to meet ALARA standards for radiation dose reduction. INDICATION: Hypoxia. Comparison made with prior examination of 09/29/2020. FINDINGS: There is moderately severe emphysematous disease. There is some bibasilar atelectasis and/or pneumonitis. There are bilateral pleural effusions. There is cardiomegaly. There are some coronary artery calcifications. Thoracic aorta is normal in caliber without evidence of dissection. No pneumothorax. No pathologically enlarged adenopathy in the chest. There are no filling defects within the pulmonary arteries to suggest pulmonary embolism. There appears to be some venous congestion. The visualized intra-abdominal structures are unremarkable. There are degenerative changes in the spine. There is a partially visualized retroperitoneal mass likely hemorrhage on the right anterior to the right psoas muscle. There are degenerative changes in the spine. IMPRESSION: No evidence of pulmonary embolism. Bibasilar atelectasis and/or pneumonitis and bilateral pleural effusions. Cardiomegaly and some venous congestion. Soft tissue mass anterior to right psoas muscle likely retroperitoneal hemorrhage although no active extravasation is appreciated. Additionally, the full extent of this is not visualized on this exam. It was not mentioned by the [facility] the previous night however findings were conveyed to the [facility] at 6:[address] abdomen and pelvis is recommended. Dictated by: Dictated on workstation # [id number]
--- NOTE | 2020-11-19 07:52 | Diagnostic Imaging Report ---
INDICATION: Anemia, elevated troponin. Acute respiratory failure EXAMINATION: Chest 11/19/2020 FINDINGS: The heart is enlarged. Pulmonary vasculature is congested. Findings of edema seen throughout both lungs with bibasilar infiltrates, left worse than right. There is a left effusion. There is no pneumothorax. IMPRESSION: 1. Findings of pulmonary edema 2. Left base infiltrate and effusion. Dictated by: Dictated on workstation # [id number]
[2020-11-19] MEDS ORDERED: HOLD METFORMIN - RECEIVED CONTRAST 20 ML VIAL IV SCH (08:45)
[2020-11-19] MEDS ORDERED: IOHEXOL 350 MG/ML 100 ML (OMNIPAQUE 350) VIAL IV ONE (08:45)
[2020-11-19] MEDS ORDERED: NS 100 ML (IVPB) BAG IV ONE (08:45)
--- NOTE | 2020-11-19 08:47 | Diagnostic Imaging Report ---
PROCEDURE: CT abdomen and pelvis with and without contrast. TECHNIQUE: Precontrast acquisitions were acquired through the abdomen and pelvis. Multiple contiguous axial images were obtained through the abdomen and pelvis after the administration of intravenous contrast. Auto Exposure Controls were utilized during the CT exam to meet ALARA standards for radiation dose reduction. INDICATION: Retroperitoneal bleed. FINDINGS: Comparison made with prior examination of 09/29/2020. There is bibasilar atelectasis and/or pneumonitis and bilateral pleural effusions. There is cardiomegaly. The liver is normal in size without focal lesions. Gallbladder is unremarkable. No biliary duct dilatation. Spleen is normal. Pancreas and adrenal glands are unremarkable. There is a 3 mm nonobstructing stone in the left kidney. Right kidney is normal. Aorta is nonaneurysmal. There appears be a liquefied hematoma along the anterior aspect of the right psoas muscle. This measures approximately 20 cm in length by 7 cm in width by 4.5 cm AP. This was partially visualized on the angio from 09/29/2020 at which time it was slightly more hyperdense. This is most suspect for chronic resolving retroperitoneal hemorrhage. No active extravasation is appreciated. Bowel gas pattern is nonspecific. There is a moderate amount of constipation. There is a Beck catheter in the bladder. No pelvic mass or adenopathy. There are degenerative changes in the spine. There is also bilateral spondylolysis at L5 with grade 1 spondylolisthesis. IMPRESSION: Cardiomegaly and bibasilar atelectasis and/or pneumonitis with bilateral pleural effusions. 3 mm nonobstructing left renal calculus. There appears to be resolving retroperitoneal hemorrhage along the anterior aspect of the right psoas muscle. Recommend clinical correlation and followup imaging to ensure continued resolution. Moderate amount of retained fecal material likely reflecting some degree of constipation. Dictated by: Dictated on workstation # [id number]
[2020-11-19] MEDS ORDERED: ENOXAPARIN 100 MG/1 ML (LOVENOX) SYR SC SCH (09:00)
[2020-11-19] MEDS: polyethylene glycoL POWDER 17 GM (MIRALAX) PACK PO SCH ×2 (12:07→20:14)
[2020-11-19] MEDS: ENOXAPARIN 100 MG/1 ML (LOVENOX) SYR SC SCH (12:07)
[2020-11-19] MEDS: SENNA W/DOCUSATE (SENOKOT S) TABLET PO SCH ×2 (12:07→20:15)
[2020-11-19] MEDS: LACTULOSE SYRUP 10GM/15ML (ENULOSE) 30ML UDC PO SCH ×2 (12:08→20:37)
[2020-11-19] MEDS: VANCOMYCIN 1 GM/NS 250 ML IVPB IV SCH ×2 (17:51)
[2020-11-20] MEDS: MEROPENEM 500 MG in WATER (STERILE) FOR INJECTION 10 ML IV SCH ×4 (00:36→22:04)
[2020-11-20] MEDS: ENOXAPARIN 100 MG/1 ML (LOVENOX) SYR SC SCH ×3 (00:37→23:05)
[2020-11-20 03:30] LABS: BASOPHILS % (AUTO) 0 % (0-10); EOSINOPHILS % (AUTO) 0 % (0-10); HEMATOCRIT 25 % (40-54); HEMOGLOBIN 7.9 g/dL (13.3-17.7); LYMPHOCYTES # (AUTO) 0.9 10^3/uL (1.0-4.0); LYMPHOCYTES % (AUTO) 8 % (12-44); MEAN CORPUSCULAR HEMOGLOBIN 29 pg (25-34); MEAN CORPUSCULAR HGB CONC 32 g/dL (32-36); MEAN CORPUSCULAR VOLUME 93 fL (80-99); MONOCYTES # (AUTO) 0.9 10^3/uL (0.0-1.0); MONOCYTES % (AUTO) 8 % (0-12); NEUTROPHILS # (AUTO) 9.1 10^3/uL (1.8-7.8); NEUTROPHILS % (AUTO) 83 % (42-75); PLATELET COUNT 194 10^3/uL (130-400)
[2020-11-20] MEDS: RT-ALBUTEROL INHALER HFA (VENTOLIN HFA) 18 GM IH SCH ×6 (03:42→22:12)
[2020-11-20 03:45] LABS: POTASSIUM 3.6 MMOL/L (3.6-5.0)
[2020-11-20 03:46] LABS: CALCIUM 7.9 MG/DL (8.5-10.1)
[2020-11-20 03:51] LABS: CREATININE SERUM 1.43 MG/DL (0.60-1.30); PHOSPHORUS 3.3 MG/DL (2.3-4.7)
[2020-11-20 03:53] LABS: MAGNESIUM 1.7 MG/DL (1.6-2.4)
[2020-11-20] MEDS: ACETAMINOPHEN 500 MG TAB (TYLENOL) PO PRN ×2 (04:06→20:25)
[2020-11-20] MEDS: inSUlin ASPART (NovoLOG) 1 UNIT/0.01 ML (CHARGE PER UNIT) SC SCH ×4 (05:48→20:07)
[2020-11-20] MEDS: VANCOMYCIN 1 GM/NS 250 ML IVPB IV SCH ×4 (05:48→17:07)
--- NOTE | 2020-11-20 06:04 | NUR ---
Reported to EICU about patient's low urine output. Orders received.
--- NOTE | 2020-11-20 06:50 | NUR ---
Patient has a hematoma from previous IV that was accidentally pulled out previous night. Hematoma is increasing in size and patient is complaining of increasing throbbing pain. Tylenol given with no relief, ice pack placed and patient states increasing pain with ice pack. EICU called, and informed to keep elevated and cold wash cloth. Patient declines at this time. Will continue to monitor.
--- NOTE | 2020-11-20 08:08 | Diagnostic Imaging Report ---
EXAMINATION: Chest radiograph, portable AP view. DATE: 11/20/2020 3:45 AM INDICATION: 80-year-old male, respiratory failure. COMPARISON: November 19, 2020. FINDINGS: Heart size and mediastinal contours are unchanged. There is no identified pneumothorax. There is no large pleural effusion. There is multifocal bilateral lung consolidation which is essentially unchanged. IMPRESSION: 1. Essentially unchanged multifocal bilateral lung consolidation. Dictated by: Dictated on workstation # [id number]
[2020-11-20] MEDS: LACTULOSE SYRUP 10GM/15ML (ENULOSE) 30ML UDC PO SCH ×2 (08:39→20:24)
[2020-11-20] MEDS: polyethylene glycoL POWDER 17 GM (MIRALAX) PACK PO SCH ×2 (08:44→20:24)
[2020-11-20] MEDS: SENNA W/DOCUSATE (SENOKOT S) TABLET PO SCH ×2 (08:44→20:25)
[2020-11-20] MEDS: 1/2 NS IV SOLUTION 1,000 ML IV SCH (09:52)
--- NOTE | 2020-11-20 09:59 | NUR ---
THIS RN NOTIFIED TELE-ICU OF DECREASED URINE OUTPUT OF 60ML/4HR TIME PERIOD. ORDERS FOR 40MG LASIX GIVEN. SEE ORDER HX.
[2020-11-20] MEDS ORDERED: FUROSEMIDE 40 MG/4 ML INJ (LASIX) IVP NR (10:00)
--- NOTE | 2020-11-20 10:39 | Progress Note ---
Subjective Date Seen by a Provider: Nov 20, 2020 Time Seen by a Provider: 10:00 Subjective/Events-last exam doing ok. hb stable. pain controlled. on lovenox. no signs clinical bleed. Focused Exam Lactate Level 11/18/20 21:30: Lactic Acid Level 2.55*H 11/18/20 23:25: Lactic Acid Level 2.00 Objective Exam Vital Signs Date Time Temp Pulse Resp B/P (MAP) Pulse Ox O2 Delivery O2 Flow Rate FiO2 11/20/20 10:11 92 Nasal Cannula 2.00 11/20/20 10:00 65 15 140/77 (98) 95 Nasal Cannula 2.00 11/20/20 09:00 85 19 147/81 (103) 95 Nasal Cannula 2.00 11/20/20 08:25 97 Nasal Cannula 1.00 11/20/20 08:00 86 16 138/86 (103) 90 Nasal Cannula 1.00 11/20/20 07:40 36.3 11/20/20 07:00 71 11/20/20 07:00 66 12 150/75 (100) 94 Nasal Cannula 1.00 11/20/20 06:56 90 Nasal Cannula 1.00 11/20/20 06:00 75 19 148/74 (98) 93 Nasal Cannula 1.00 11/20/20 05:00 86 19 155/83 (107) 94 Nasal Cannula 1.00 11/20/20 04:30 36.4 11/20/20 04:00 82 20 136/71 (92) 91 Nasal Cannula 1.00 11/20/20 03:42 93 Nasal Cannula 1.00 11/20/20 03:00 82 20 130/83 (99) 95 Nasal Cannula 1.00 11/20/20 02:00 81 17 144/80 (101) 93 Nasal Cannula 1.00 11/20/20 01:00 84 11/20/20 01:00 80 16 124/73 (90) 92 Nasal Cannula 1.00 11/20/20 00:37 36.3 97 Nasal Cannula 1.00 11/20/20 00:00 84 18 129/75 (93) 97 Nasal Cannula 2.00 11/19/20 23:01 Nasal Cannula 2.00 11/19/20 23:00 82 16 135/67 (89) 98 Nasal Cannula 3.00 11/19/20 22:48 100 Nasal Cannula 2.00 11/19/20 22:00 81 24 146/83 (104) 97 Nasal Cannula 3.00 11/19/20 21:00 85 21 154/80 (104) 99 Nasal Cannula 3.00 11/19/20 20:30 92 Nasal Cannula 3.00 11/19/20 20:30 93 Nasal Cannula 3.00 11/19/20 20:20 88 Nasal Cannula 2.00 11/19/20 20:17 36.5 11/19/20 20:00 89 22 152/83 (106) 100 Nasal Cannula 2.00 11/19/20 19:26 98 Nasal Cannula 3.00 11/19/20 19:00 89 11/19/20 19:00 89 23 149/83 (105) 95 Nasal Cannula 2.00 11/19/20 18:00 71 11 134/84 (101) 93 Nasal Cannula 3.00 11/19/20 17:00 92 25 91 Nasal Cannula 1.00 11/19/20 16:00 87 19 123/81 (95) 100 Nasal Cannula 1.00 11/19/20 15:46 36.2 11/19/20 15:00 82 22 156/80 (105) 91 Nasal Cannula 1.00 11/19/20 14:39 94 Nasal Cannula 3.00 11/19/20 14:00 87 148/83 (104) 89 Nasal Cannula 1.00 11/19/20 13:00 92 142/91 (108) 98 Nasal Cannula 1.00 11/19/20 12:52 92 11/19/20 12:00 94 156/92 (113) 89 Nasal Cannula 1.00 11/19/20 11:25 36.4 11/19/20 11:08 Nasal Cannula 3.00 11/19/20 11:00 93 25 152/88 (109) 92 Nasal Cannula 1.00 I & O 11/20/20 07:00 Intake Total 2060 ml Output Total 2150 ml Balance -90 ml Capillary Refill : Less Than 3 Seconds General Appearance: No Apparent Distress HEENT: PERRL/EOMI Neck: Full Range of Motion Respiratory: Decreased Breath Sounds, Rhonci, Wheezing Cardiovascular: Regular Rate, Rhythm Gastrointestinal: normal bowel sounds, non tender, soft Extremity: Normal Capillary Refill Neurologic/Psychiatric: Alert, Oriented x3 Skin: Normal Color Lymphatic: No Adenopathy Results Lab Laboratory Tests 11/19/20 11:06: Glucometer 228H 11/19/20 15:51: Glucometer 171H 11/19/20 20:14: Glucometer 227H 11/20/20 03:07: White Blood Count 11.0, Red Blood Count 2.69L, Hemoglobin 7.9L, Hematocrit 25L, Mean Corpuscular Volume 93, Mean Corpuscular Hemoglobin 29, Mean Corpuscular Hemoglobin Concent 32, Red Cell Distribution Width 15.9H, Platelet Count 194, Mean Platelet Volume 11.0, Immature Granulocyte % (Auto) 1, Neutrophils (%) (Auto) 83H, Lymphocytes (%) (Auto) 8L, Monocytes (%) (Auto) 8, Eosinophils (%) (Auto) 0, Basophils (%) (Auto) 0, Neutrophils # (Auto) 9.1H, Lymphocytes # (Auto) 0.9L, Monocytes # (Auto) 0.9, Eosinophils # (Auto) 0.0, Basophils # (Auto) 0.0, Immature Granulocyte # (Auto) 0.1, Sodium Level 139, Potassium Level 3.6, Chloride Level 102, Carbon Dioxide Level 27, Anion Gap 10, Blood Urea Nitrogen 32H, Creatinine 1.43H, Estimat Glomerular Filtration Rate 48, BUN/Creatinine Ratio 22, Glucose Level 152H, Calcium Level 7.9L, Phosphorus Level 3.3, Magnesium Level 1.7 11/20/20 10:26: Glucometer 140H Microbiology 11/19/20 MRSA Screen - Final, Complete MRSA not isolated 11/18/20 Blood Culture - Preliminary, Resulted No growth Assessment/Plan Assessment/Plan Assess & Plan/Chief Complaint COPD with pneumonia and chronic right retroperitoneal bleed. cont with anticoagulation. ambulate. CHANEL JORGE MD Nov 20, 2020 10:39
--- NOTE | 2020-11-20 11:12 | Progress Note - Hospitalist ---
Subjective HPI/CC On Admission Date Seen by Provider: Nov 20, 2020 Time Seen by Provider: 11:00 CC: Recurrent PNA HPI: This is an 80yoWM known to me from multiple hospital stays including [facility] after recurrent PNA required DC from there and ultimately moved to [facility] who presented to the ER with fever and dyspnea and found to have recurrent PNA on CT so placed on abx and moved to ICU due to recurrent intubations in the past. He remains a full code although his lungs remain extremely diseased and multiple conversations about end of life care have been met with resistance from both the patient and family after he had revoked his DNR status in [facility] 3 months ago. Abx maintained. Subjective/Events-last exam Patient doing well Left hand hematoma from IV placed by EMS is large but non-compliant with keeping elevated Hydrocodone added for pain of the left hand Abx maintained O2 maintained Moving to 4th floor Lasix 40mg IVP x 1 today PT OT will be ordered Review of Systems Pulmonary: Dyspnea Musculoskeletal: hand pain Focused Exam Lactate Level 11/18/20 21:30: Lactic Acid Level 2.55*H 11/18/20 23:25: Lactic Acid Level 2.00 Objective Exam Vital Signs Vital Signs Date Time Temp Pulse Resp B/P (MAP) Pulse Ox O2 Delivery O2 Flow Rate FiO2 11/20/20 19:18 36.7 81 16 167/77 (107) 91 Nasal Cannula 2.00 11/19/20 03:30 28 Capillary Refill : Less Than 3 Seconds General Appearance: No Apparent Distress, WD/WN, Chronically ill Respiratory: Chest Non Tender, Lungs Clear, No Accessory Muscle Use, No Respiratory Distress, Decreased Breath Sounds Cardiovascular: Regular Rate, Rhythm Neurologic/Psychiatric: Alert, Oriented x3, No Motor/Sensory Deficits, Normal Mood/Affect Results/Procedures Lab Laboratory Tests 11/20/20 03:07 Patient resulted labs reviewed. Assessment/Plan Assessment and Plan Assess & Plan/Chief Complaint Assessment: Sepsis Respiratory failure acute on chronic PNA HAP HTN AF Severe myopathy Old retroperitoneal bleed on CT scan consulted Dr Osuna Plan: Monitor lung function since VDRF in past multiple times Monitor creat INR 11/20/20: Move to 4th Abx Left hand hematoma pain management PT OT Diagnosis/Problems Diagnosis/Problems (1) Acute on chronic respiratory failure with hypoxia Status: Acute (2) Elevated troponin Status: Acute (3) Chronic atrial fibrillation Status: Acute (4) Renal insufficiency Status: Acute (5) CHF (congestive heart failure) Status: Acute (6) COPD (chronic obstructive pulmonary disease) (7) Pneumonia Status: Acute SAEID JONES DO Nov 20, 2020 11:12
--- NOTE | 2020-11-20 11:41 | CONSULTATION REPORT ---
DATE OF SERVICE: 11/19/2020 ADMITTING PHYSICIAN: Dr. Perez. ATTENDING PRIMARY CARE PHYSICIAN: Dr. Bebo Reid. HISTORY OF PRESENT ILLNESS: The patient is an 80-year-old male, resident of an extended care facility. He has had multiple issues with exacerbation of COPD requiring admissions as well as acute inpatient rehabilitation. He had worsening shortness of breath as well as found to have low oxygen saturations, where a CT scan was performed, which did show a pneumonia. The CT scan also did show a retroperitoneal hematoma on the right side. Upon further questioning, he reports that he did have a pain back in 07/2020 and was transferred to [place], [place] for further workup and evaluation. Since that time, he states that he still has some discomfort; however, not as severe. A CT scan of the abdomen and pelvis with IV contrast was performed, which did reveal a right retroperitoneal hematoma overlying the psoas muscle; however, this appears to be chronic. His hemoglobin is also stable. PAST MEDICAL HISTORY: COPD, atrial fibrillation, hypercholesterolemia, hypertension, history of pneumonia, gastroesophageal reflux disease, renal failure, diabetes and anxiety. PAST SURGICAL HISTORY: None noted. ALLERGIES: No known drug allergies. MEDICATIONS: Atorvastatin, fluticasone spray, folic acid, furosemide, ipratropium/albuterol, metformin, nystatin, Protonix, potassium, prednisone, Coumadin and Colace. SOCIAL HISTORY: Previous smoker, quit in 1979, approximately 15 pack years, previous alcohol; however, has not drunk alcohol since 1979 as well. FAMILY HISTORY: Noncontributory. REVIEW OF SYSTEMS: A well-nourished male currently in no acute distress. He is not experiencing any shortness of breath or difficulty breathing. No chest pain, palpitations or diaphoresis. No nausea, vomiting, no diarrhea or constipation. No fever or chills. No recent inadvertent weight loss. PHYSICAL EXAMINATION: VITAL SIGNS: Temperature afebrile. Blood pressure 160/83, pulse 76, respirations 20, pulse ox 94% on 2 liters nasal cannula. CHEST: Distant breath sounds. Scattered wheezes bilaterally. HEART: Regular and no murmurs. EXTREMITIES: No lower extremity edema and negative Homans sign. HEENT: No scleral icterus. NECK: No cervical lymphadenopathy. ABDOMEN: Soft and nondistended. There is mild discomfort upon deep palpation of the right lower abdominal quadrant. No peritoneal signs. SKIN: Warm and dry. ASSESSMENT AND PLAN: An 80-year-old male with exacerbation of COPD and overlying pneumonia. He also has a right retroperitoneal hematoma overlying the right psoas muscle; however, based on recent CT scan, this appears to be chronic. Management may continue with anticoagulation as necessary for DVT prophylaxis as well as for atrial fibrillation. Job ID: [id number] DocumentID: [id number] Dictated Date: 11/20/2020 11:31:31 Digital Marketing Lead Date: 11/20/2020 11:40:28 Dictated By: CHANEL JORGE MD
--- NOTE | 2020-11-20 11:56 | NUR ---
REPORT CALLED TO MU PERES.
--- NOTE | 2020-11-20 12:21 | NUR ---
THIS RN CALLED PT'S DAUGHTER, ALLA, AND PROVIDED UPDATE.
--- NOTE | 2020-11-20 12:50 | NUR ---
[facility]ED WITH THIS RN AT [facility] AND [facility] AT [facility]. PT ARRIVED TO NEW ROOM WITH IV IN RT HAND AND MART CATHETER INTACT. PT BED LOCKED AND PLACED IN LOWEST POSITION. PT ORIENTATED TO ROOM AND CALL LIGHT GIVEN TO PT. MU PERES AT PT BEDSIDE AND TO ASSUME CARE OF PT.
[2020-11-20] MEDS ORDERED: MEROPENEM 500 MG in WATER (STERILE) FOR INJECTION 10 ML IV SCH (14:00)
[2020-11-20] MEDS: HYDROcodone/APAP 5 MG/325 MG (LORTAB) TAB PO PRN ×2 (17:04→23:01)
--- NOTE | 2020-11-20 19:03 | Consultation-Cardiology ---
HPI-Cardiology Cardiology Consultation: Date of Consultation 11/20/20 Time Seen by a Provider: 17:00 Date of Admission Attending Physician Damon Barker MD Admitting Physician Bebo Reid MD Consulting Physician JENIFFER ROBERT MD, MA, FACP, FACC, FSCAI, CCDS HPI: Chief Complaint: CC: Shortness of breath and malaise HPI 80 yo man admitted with malaise and shortness of breath and fever, and found to pneumonia. Denies cp. No palp or syncope. Gen malaise and weakness. R arm swelling after attempted iv / blood draw causing him considerable discomfort. Denies leg selling. Denies focal weakness Review of Systems-Cardiology Review of Systems Constitutional: As described under HPI Eyes: No vision change Ears/Nose/Throat: No nasal drainage, No recent hearing loss, No ulcerations Respiratory: As described under HPI Cardiovascular: As described under HPI Gastrointestinal: No diarrhea, No nausea Genitourinary: No dysuria, No hematuria Musculoskeletal: back pain (chronic); No joint pain Skin: No rash, No ulcerations Psychiatric/Neurological: No seizure, No focal weakness, No syncope Hematologic: No bleeding abnormalities [id number] Hx Patient Social History Marrital Status: single Employed/Student: retired Smoking Status: Former Smoker Have you traveled recently?: No Pt feels they are or have been: No Immunizations Up To Date Date of Pneumonia Vaccine: Jul 27, 2020 Date of Influenza Vaccine: Jul 27, 2020 Past Medical History PMH As described under Assessment. Family Medical History Family Medical History: Does not report any family h/o CAD. Allergies and Home Medications Allergies Coded Allergies: No Known Drug Allergies (Unverified , 10/23/20) Home Medications Acetaminophen 650 Mg Tablet.er, 650 MG PO Q6H PRN for PAIN-MILD (1-4) OR TEMPATURE, (Reported) Amoxicillin/Potassium Clav 1 Each Tablet, 875 MG PO BID WITH MEALS Prescribed by: DAMON BARKER on 10/31/20 1215 Atorvastatin Calcium 40 Mg Tablet, 40 MG PO HS, (Reported) Fluticasone Propionate 9.9 Ml [place].susp, 1 SPRAY NS BID, (Reported) 1 SPRAY EACH NARE DAILY Fluticasone/Salmeterol 12 Gm Hfa.aer.ad, 1 PUFF IH BID, (Reported) Folic Acid 1 Mg Tablet, 1 MG PO DAILY, (Reported) Furosemide 40 Mg Tablet, 40 MG PO DAILY HOLD UNTIL FOLLOW UP LABS Prescribed by: DAMON BARKER on 10/31/20 1215 Ipratropium/Albuterol Sulfate 3 Ml Ampul.neb, 3 ML IH QID, (Reported) Metformin HCl 500 Mg Tablet, 500 MG PO DAILY Prescribed by: DAMON BARKER on 10/31/20 1215 Multivitamin with Minerals 1 Each Tablet, 1 EACH PO DAILY, (Reported) Nystatin 100,000 Unit/1 Ml Oral.susp, 5 ML PO QID Prescribed by: SAEID JONES on 10/17/20 1032 Nystatin 15 Gm Cream..g., 15 GM TP TID, (Reported) Pantoprazole Sodium 40 Mg Tablet.dr, 40 MG PO BID, (Reported) Potassium Chloride 10 Meq Tablet.er, 10 MEQ PO DAILY HOLD UNTIL FOLLOW UP LABS Prescribed by: DAMON BARKER on 10/31/20 1215 Prednisone 10 Mg Tab.ds.pk, 10 MG PO DAILY Take 6 tabs(60mg)daily,decrease by 1 tab(10mg)every other day. Prescribed by: DAMON BARKER on 10/31/20 1241 Saliva Stimulant Agents Comb.3 1 Each [place], 0 EACH MM TID Prescribed by: SAEID JONES on 10/17/20 1032 Sennosides/Docusate Sodium 1 Each Tablet, 1 EA PO BID Prescribed by: SAEID JONES on 10/17/20 1032 Warfarin Sodium 1 Mg Tablet, 1 MG PO 1700, (Reported) Patient Home Medication List Home Medication List Reviewed: Yes Physical Exam-Cardiology Physical Exam Vital Signs/I&O 11/20/20 11/20/20 11/20/20 11/20/20 07:00 07:00 07:40 08:00 Temp 36.3 Pulse 66 71 86 Resp 12 16 B/P (MAP) 150/75 (100) 138/86 (103) Pulse Ox 94 90 O2 Delivery Nasal Cannula Nasal Cannula O2 Flow Rate 1.00 1.00 11/20/20 11/20/20 11/20/20 11/20/20 08:25 09:00 10:00 10:11 Pulse 85 65 Resp 19 15 B/P (MAP) 147/81 (103) 140/77 (98) Pulse Ox 97 95 95 92 O2 Delivery Nasal Cannula Nasal Cannula Nasal Cannula Nasal Cannula O2 Flow Rate 1.00 2.00 2.00 2.00 11/20/20 11/20/20 11/20/20 11/20/20 11:00 11:42 12:00 12:46 Temp 36.0 Pulse 76 80 78 Resp 20 30 B/P (MAP) 160/83 (108) 152/72 (98) Pulse Ox 94 93 O2 Delivery Nasal Cannula Nasal Cannula O2 Flow Rate 2.00 2.00 11/20/20 11/20/20 11/20/20 11/20/20 13:31 14:51 15:49 18:45 Temp 36.5 36.9 Pulse 87 85 Resp 20 20 B/P (MAP) 137/73 (94) 154/84 (107) Pulse Ox 93 90 92 93 O2 Delivery Nasal Cannula Nasal Cannula Nasal Cannula Nasal Cannula O2 Flow Rate 2.00 2.00 2.00 2.00 11/20/20 00:00 Intake Total 1100 ml Output Total 1100 ml Balance 0 ml Capillary Refill : Less Than 3 Seconds Constitutional: AAO x 3, well-developed, well-nourished HEENT: EOMI, hearing is well preserved; No xanthelasmas are seen Neck: carotid pulses are 2 + bilaterally, with good upstrokes Respiratory: No accessory muscle use; other (Fair, bilateral air entry, diminished at the bases) Cardiovascular: regular rate-rhythm, S1 and S2, systolic murmur (soft ONDINA at card base) Gastrointestinal: No tender; soft; No guarding, No rebound, No audible bowel sounds Extremities: other (considerable niyah of the R hand and arm after attemtped iv earlier today by the nursing staff); No clubbing, No cyanosis Neurologic/Psychiatric: oriented x 3, other (moves all limbs equally) Skin: No rash on exposed areas, No ulcerations on exposed areas Data Review Labs Laboratory Tests 11/19/20 20:14: Glucometer 227H 11/20/20 03:07: White Blood Count 11.0, Red Blood Count 2.69L, Hemoglobin 7.9L, Hematocrit 25L, Mean Corpuscular Volume 93, Mean Corpuscular Hemoglobin 29, Mean Corpuscular Hemoglobin Concent 32, Red Cell Distribution Width 15.9H, Platelet Count 194, Mean Platelet Volume 11.0, Immature Granulocyte % (Auto) 1, Neutrophils (%) (Auto) 83H, Lymphocytes (%) (Auto) 8L, Monocytes (%) (Auto) 8, Eosinophils (%) (Auto) 0, Basophils (%) (Auto) 0, Neutrophils # (Auto) 9.1H, Lymphocytes # (Auto) 0.9L, Monocytes # (Auto) 0.9, Eosinophils # (Auto) 0.0, Basophils # (Auto) 0.0, Immature Granulocyte # (Auto) 0.1, Sodium Level 139, Potassium Level 3.6, Chloride Level 102, Carbon Dioxide Level 27, Anion Gap 10, Blood Urea Nitrogen 32H, Creatinine 1.43H, Estimat Glomerular Filtration Rate 48, BUN/Creatinine Ratio 22, Glucose Level 152H, Calcium Level 7.9L, Phosphorus Level 3.3, Magnesium Level 1.7 11/20/20 10:26: Glucometer 140H 11/20/20 16:12: Glucometer 213H Microbiology 11/19/20 MRSA Screen - Final, Complete MRSA not isolated 11/18/20 Blood Culture - Preliminary, Resulted No growth Laboratory Tests 11/18/20 21:30 11/19/20 03:30 11/20/20 03:07 A/P-Cardiology Assessment/Admission Diagnosis Bilateral pneumonia, managed by Dr Jones PAF Anemia of undetermined etiology - h/o EGD showing mild gastritis - managed by Dr Jones Abnormal EKG that shows chronic RBBB Echocardiogram of Sep 28, 2020 showed LVEF 55-65%. 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 Jones Discussion and Recomendations * Resume oral anticoag when considered stable and safe from the standpoint of anemia * Use bb or ccb if needed for vent rate control * Monitor labs JENIFFER ROBERT MD FACP FAC CCDS Nov 20, 2020 19:03
[2020-11-20 19:18] VITALS: BP 167/77
[2020-11-20 23:00] VITALS: BP 169/79
--- NOTE | 2020-11-20 23:27 | NUR ---
DR. JONES NOTIFIED OF PT'S PAIN IN LEFT HAND WORSENING THROUGHOUT SHIFT. LORTAB AND TYLENOL ON EMAR GIVEN WITH NO ALLEVIATION. NEW ORDERS RECEIVED FOR FENTANYL 50MCG IV Q2H PRN FOR SEVERE PAIN WELL PLACING LOVENOX ON EMAR ON HOLD. WILL CONTINUE TO MONITOR.
[2020-11-20] MEDS ORDERED: fentaNYL INJECTION 100 MCG/2 ML AMP ONE (23:42)
[2020-11-20] MEDS: fentaNYL INJECTION 100 MCG/2 ML AMP IVP PRN (23:45)
--- NOTE | 2020-11-21 00:14 | NUR ---
DR. JORGE NOTIFIED PER DR. JONES'S REQUEST ABOUT PT'S LEFT HAND PAIN WORSENING THROUGHOUT SHIFT. NO NEW ORDERS RECEIVED AT THIS TIME, JUST INSTRUCTED TO ELEVATE PT'S HAND ON 2 PILLOWS. WILL CONTINUE TO MONITOR.
[2020-11-21] MEDS: fentaNYL INJECTION 100 MCG/2 ML AMP IVP PRN ×9 (01:42→21:28)
[2020-11-21] MEDS: RT-ALBUTEROL INHALER HFA (VENTOLIN HFA) 18 GM IH SCH ×6 (02:24→21:11)
[2020-11-21 04:00] VITALS: BP 170/81
[2020-11-21] MEDS: 1/2 NS IV SOLUTION 1,000 ML IV SCH ×2 (04:17→22:19)
[2020-11-21 04:38] LABS: BASOPHILS % (AUTO) 0 % (0-10); EOSINOPHILS # (AUTO) 0.1 10^3/uL (0.0-0.3); EOSINOPHILS % (AUTO) 1 % (0-10); HEMATOCRIT 24 % (40-54); HEMOGLOBIN 7.6 g/dL (13.3-17.7); LYMPHOCYTES # (AUTO) 1.4 10^3/uL (1.0-4.0); LYMPHOCYTES % (AUTO) 12 % (12-44); MEAN CORPUSCULAR HEMOGLOBIN 29 pg (25-34); MEAN CORPUSCULAR HGB CONC 31 g/dL (32-36); MEAN CORPUSCULAR VOLUME 93 fL (80-99); MEAN PLATELET VOLUME 10.8 fL (9.0-12.2); MONOCYTES % (AUTO) 8 % (0-12); NEUTROPHILS # (AUTO) 9.6 10^3/uL (1.8-7.8); NEUTROPHILS % (AUTO) 78 % (42-75); PLATELET COUNT 213 10^3/uL (130-400); WHITE BLOOD COUNT 12.3 10^3/uL (4.3-11.0)
[2020-11-21 04:49] LABS: ALBUMIN 2.6 GM/DL (3.2-4.5)
[2020-11-21 04:50] LABS: POTASSIUM 4.4 MMOL/L (3.6-5.0)
[2020-11-21 04:51] LABS: CALCIUM 7.6 MG/DL (8.5-10.1)
[2020-11-21 04:52] LABS: TOTAL PROTEIN 5.3 GM/DL (6.4-8.2)
[2020-11-21 04:54] LABS: BILIRUBIN,TOTAL 0.3 MG/DL (0.1-1.0)
[2020-11-21 04:56] LABS: CREATININE SERUM 1.93 MG/DL (0.60-1.30)
[2020-11-21 04:58] LABS: INR 1.8 (0.8-1.4); PROTHROMBIN TIME PATIENT 21.5 SEC (12.2-14.7)
[2020-11-21] MEDS: VANCOMYCIN 1 GM/NS 250 ML IVPB IV SCH ×4 (05:54→17:54)
[2020-11-21] MEDS: MEROPENEM 500 MG in WATER (STERILE) FOR INJECTION 10 ML IV SCH ×3 (05:54→21:28)
[2020-11-21] MEDS: inSUlin ASPART (NovoLOG) 1 UNIT/0.01 ML (CHARGE PER UNIT) SC SCH ×4 (06:07→21:17)
[2020-11-21 08:00] VITALS: BP 182/81
[2020-11-21] MEDS: HYDROcodone/APAP 5 MG/325 MG (LORTAB) TAB PO PRN ×3 (08:04→17:52)
[2020-11-21] MEDS: polyethylene glycoL POWDER 17 GM (MIRALAX) PACK PO SCH ×2 (08:04→21:31)
[2020-11-21] MEDS: SENNA W/DOCUSATE (SENOKOT S) TABLET PO SCH ×2 (08:04→21:28)
[2020-11-21] MEDS: LACTULOSE SYRUP 10GM/15ML (ENULOSE) 30ML UDC PO SCH ×2 (09:00→21:28)
--- NOTE | 2020-11-21 10:04 | Cardiology Progress Note ---
Subjective Date Seen by Provider: Nov 21, 2020 Time Seen by Provider: 10:30 Subjective/Events-last exam Patient sitting up in bed, reports improvement of dyspnea. Denies any chest pain. C/o left hand/arm pain Focused Exam Lactate Level 11/18/20 21:30: Lactic Acid Level 2.55*H 11/18/20 23:25: Lactic Acid Level 2.00 Objective-Cardiology Exam Last Set of Vital Signs Vital Signs 11/19/20 11/21/20 11/21/20 03:30 15:39 16:01 Temp 36.7 Pulse 75 Resp 18 B/P (MAP) 148/77 (100) Pulse Ox 92 O2 Delivery Nasal Cannula O2 Flow Rate 5.00 FiO2 28 Capillary Refill : Less Than 3 Seconds I&O Intake and Output 11/21/20 00:00 Intake Total 2680 ml Output Total 735 ml Balance 1945 ml Intake Oral 1670 ml IV Total 1010 ml Output Urine Total 735 ml General: Alert, Oriented X3, Cooperative HEENT: Atraumatic, PERRLA Neck: Supple, No JVD, No Thyromegaly Lungs: Other (bilat rhonchi) Heart: Regular Rate, Normal S1, Normal S2 Abdomen: Normal Bowel Sounds, Soft Extremities: Other (trace edema BLE) Skin: No Rashes, No Significant Lesion Neuro: Normal Speech Psych/Mental Status: Mental Status NL, Mood NL Results Lab Laboratory Tests 11/21/20 04:00 A/P-Cardiology Admission Diagnosis PAF HTN Pneumonia Anemia Assessment/Plan Bilateral pneumonia, managed by Dr Perez PAF, uable to tolerate OAC at this time secondary to anemia. HTN, I will start patient on losartan, continue to monitor. Anemia of undetermined etiology - h/o EGD showing mild gastritis - managed by Dr Perez Abnormal EKG that shows chronic RBBB Echocardiogram of Sep 28, 2020 showed LVEF 55-65%. 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 Perez Patient was seen and evaluated with Anny, examination performed, management plan was discussed, agree with the current scribed note, I made few changes to the note using Italic font Patient was seen at bedside, laying down comfortably, still having some shortness of breath Blood pressure is poorly controlled, adding losartan 25 mg daily and monitor tolerance and response, monitor renal function closely Anemia, monitor H&H ANNY JUAREZ Nov 21, 2020 10:03 ANIKA SHEPHERD MD Nov 21, 2020 16:55
--- NOTE | 2020-11-21 10:10 | NUR ---
PT is [employer] in [place]. [employer] offered prayer and blessing.
--- NOTE | 2020-11-21 10:23 | Physical Therapy Evaluation ---
PT Evaluation-General Medical Diagnosis Admission Date Nov 18, 2020 at 22:20 Medical Diagnosis: acute/chronic respiratory failure/CHF Onset Date: Nov 18, 2020 Therapy Diagnosis Therapy Diagnosis: severe weakness/debility (chronic) Precautions Precautions/Isolations: Fall Prevention, Standard Precautions Referral Physician: Ana Reason for Referral: Evaluation/Treatment Medical History Pertinent Medical History: Atrial Fib, COPD, DM, GERD, HTN, PVD, Renal Insufficiency Current History EMS from [place] secondary to SOA Reviewed History: Yes Social History Home: Senior Living Prior Prior Level of Function SCALE: Activities may be completed with or without assistive devices. 7-Oibarsiejm-fmyxwov completes the activity by him/herself with no assistance from a helper. 5-Set-up or Clean-up Assistance-helper sets up or cleans up; patient completes activity. Sagle assists only prior to or following the activity. 4-Supervision or Touching Assistance-helper provides verbal cues and/or touching/steadying and/or contact guard assistance as patient completes activity. Assistance may be provided throughout the activity or intermittently. 3-Partial/Moderate Assistance-helper does LESS THAN HALF the effort. Sagle lifts, holds or supports trunk or limbs, but provides less than half the effort. 2-Substantial/Maximal Assistance-helper does MORE THAN HALF the effort. Sagle lifts or holds trunk or limbs and provides more than half the effort. 7-Oycuxwiqo-hdjgyb does ALL the effort. Patient does none of the effort to complete the activity. Or, the assistance of 2 or more helpers is required for the patient to complete the activity. If activity was not attempted, code reason: 7-Patient Refused. 9-Not Applicable-not attempted and the patient did not perform the activity before the current illness, exacerbation or injury. 10-Not Attempted due to Environmental Limitations-(lack of equipment, weather restraints, etc.). 88-Not Attempted due to Medical Conditions or Safety Concerns. Bed Mobility: 1 Transfers (B,C,W/C): 1 (sit to stand lift or Ivonne) Gait: 9 Stairs: 9 Indoor Mobility (Ambulation): Not Applicalbe Stairs: Not Applicalbe Prior Devices Use: Mechanical lift PT Evaluation-Current Subjective Patient agrees to exercises only. Adamantly declined OOB or EOB activity. Pain Numeric Pain Scale: 10-Worst Possible Pain Location: Left Location Body Site: Hand Pain Description: Acute Objective Patient Orientation: Normal For Age Attachments: Oxygen, Beck Catheter, IV ROM/Strength ROM Lower Extremities bilateral LE WFL Strength Lower Extremities 2-/5 grossly bilateral LE Integumentary/Posture Integumentary refer to nursing notes Bowel Incontinence: Yes Bladder Incontinence: Beck Cath Neuromuscular (Tone, Coordination, Reflexes) severely diminished with all Sensory Vision: Wears Glasses Hearing: Impaired Sensation Right Lower Extremit: Impaired Sensation Left Lower Extremity: Impaired Treatment bilateral LE AAROM all planes Assessment/Needs 80 y.o. male, will be seen by skilled PT to address functional strength and mobility. Patient has had multiple hospital stays due to respiratory issues. 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 Goals Detention Goals PT Detention Goals Time Frame: Dec 03, 2020 Roll Left & Right (QC): 2 Sit to Lying (QC): 2 Lying-Sitting on Side/Bed(QC): 2 Sit to Stand (QC): 1 (sit to stand lift) PT Plan Problem List Problem List: Activity Tolerance, Functional Strength, Safety, Balance, Transfer, Bed Mobility Treatment/Plan Treatment Plan: Continue Plan of Care Treatment Plan: Bed Mobility, Education, Functional Activity Aston, Functional Strength, Safety, Therapeutic Exercise, Transfers Treatment Duration: Dec 03, 2020 Frequency: 5 times per week Estimated Hrs Per Day: .25 hour per day Time/GCodes Time In: 830 Time Out: 847 Total Billed Treatment Time: 17 Total Billed Treatment 1 visit EVMod 17 min LYDIA LORENZANA PT Nov 21, 2020 10:23
--- NOTE | 2020-11-21 10:32 | Progress Note - Hospitalist ---
ARIANNA WILLETT MED STUDENT 11/21/20 1032: Subjective HPI/CC On Admission Date Seen by Provider: Nov 21, 2020 Time Seen by Provider: 08:15 CC: Recurrent PNA HPI: This is an 80yoWM known to me from multiple hospital stays including IRF after recurrent PNA required DC from there and ultimately moved to [facility] who presented to the ER with fever and dyspnea and found to have recurrent PNA on CT so placed on abx and moved to ICU due to recurrent intubations in the past. He remains a full code although his lungs remain extremely diseased and multiple conversations about end of life care have been met with resistance from both the patient and family after he had revoked his DNR status in [facility] 3 mo nths ago. Abx maintained. Subjective/Events-last exam Pt doing well this am L hand hematoma pain level 6/10 and jumps to 12/10 with activity - Hydrocodone maintained at q4h PRN Denies shortness of breath and chest pain Refuses breakfast due to inability to use left hand; was offered assistance but denied OT only able to do leg exercises as hand pain increased with UE movement Focused Exam Lactate Level 11/18/20 21:30: Lactic Acid Level 2.55*H 11/18/20 23:25: Lactic Acid Level 2.00 Objective Exam Vital Signs Vital Signs Date Time Temp Pulse Resp B/P (MAP) Pulse Ox O2 Delivery O2 Flow Rate FiO2 11/21/20 08:00 35.6 75 20 182/81 (114) 96 Nasal Cannula 2.00 11/19/20 03:30 28 Capillary Refill : Less Than 3 Seconds General Appearance: No Apparent Distress, WD/WN, Chronically ill HEENT: TMs Normal, Moist Mucous Membranes Neck: Normal Inspection, Non Tender Respiratory: Chest Non Tender, No Accessory Muscle Use, No Respiratory Distress, Decreased Breath Sounds Cardiovascular: Regular Rate, Rhythm, Normal Peripheral Pulses Gastrointestinal: No Pulsatile Mass, Non Tender Extremity: Normal Capillary Refill, No Calf Tenderness, Other (L hand hematoma large and draining serous fluid) Neurologic/Psychiatric: Alert, Oriented x3 Skin: Normal Color, Warm/Dry Lymphatic: No Adenopathy Results/Procedures Lab Laboratory Tests 11/21/20 04:00 Patient resulted labs reviewed. 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 Osuna will address left hand to see if anything can be drained Spoke to son in-depth who I have spoken to multiple times and all questions were answered to the best of my ability. He just can't understand why he keeps acquiring pneumonia and can't understand why his left hand can't be drained. Son is in general very condescending and angry in most of my conversations with him as it has always been in the past. Son accuses of the healthcare team causing all of patient's medical issues due to very severe lung disease that makes him prone to acute infections. Very challenging to update him over the phone. Review of Systems General: Fatigue, Malaise Musculoskeletal: hand pain Neurological: Weakness Objective Exam General Appearance: No Apparent Distress, WD/WN, Chronically ill Respiratory: Lungs Clear Cardiovascular: Regular Rate, Rhythm Extremity: Other (L hand hematoma large and draining serous fluid) Neurologic/Psychiatric: Alert, Oriented x3 Assessment/Plan Assessment and Plan Assess & Plan/Chief Complaint Appreciate Dr Osuna management for left hand hematoma Stop all OAC and Lovenox and not a candidate any longer due to severe bleeds including retroperitoneal 07/2020 Updated son Prognosis now more poor due to loss of left hand function temporarily and can't participate in activity to increase stamina Supervisory-Addendum Brief Verification & Attestation Participated in pt care: history, MDM, physical Personally performed: exam, history, MDM, supervision of care Care discussed with: Medical Student Procedures: n/a Results interpretation: Verified all documentation Verification and Attestation of Medical Student E/M Service A medical student performed and documented this service in my presence. I reviewed and verified all information documented by the medical student and made modifications to such information, when appropriate. I personally performed the physical exam and medical decision making. Marissa Jones, Nov 22, 2020,04:49 ARIANNA WILLETT MED STUDENT Nov 21, 2020 10:32 MARISSA JONES DO Nov 22, 2020 04:56
[2020-11-21 12:00] VITALS: BP 172/79
[2020-11-21] MEDS ORDERED: LOSARTAN 25 MG (COZAAR) TAB PO SCH (12:00)
[2020-11-21] MEDS ORDERED: INSU100V16 SQ (12:27)
[2020-11-21] MEDS ORDERED: METF-397 PO (12:27)
[2020-11-21] MEDS ORDERED: SENN-145 PO (12:27)
[2020-11-21] MEDS ORDERED: [UNRECOGNIZED DRUG - CODE] TOP (12:27)
[2020-11-21] MEDS ORDERED: FLUT9.9S NSEACH (12:27)
[2020-11-21] MEDS ORDERED: SALI45SP MM (12:27)
--- NOTE | 2020-11-21 12:28 | NUR ---
MED REC WAS ENTERED USING THE MAR FROM VIA [facility], [place]
--- NOTE | 2020-11-21 13:42 | Occupational Therapy Eval ---
OT Evaluation-General/PLF Medical Diagnosis Admission Date Nov 18, 2020 at 22:20 Medical Diagnosis: acute/chronic respiratory failure/CHF Onset Date: Nov 18, 2020 Therapy Diagnosis Therapy Diagnosis: decreased ADL status Precautions Precautions/Isolations: Fall Prevention, Standard Precautions Referral Physician: Ana Mancuso Reason: Evaluation/Treatment Medical History Pertinent Medical History: Atrial Fib, COPD, DM, GERD, HTN, PVD, Renal Insufficiency Additional Medical History renal surgery, COPD, PNA, Afib, chronic edema/swelling, HTN, renal failure, GERD, DM, anxiety/depression, eczema, anemia Current History admit with malaise, SOB, fever and found to have PNA Social History Home: Skilled Nursing ADL-Prior Level of Function SCALE: Activities may be completed with or without assistive devices. 2-Evgspyvjip-ctmoxap completes the activity by him/herself with no assistance from a helper. 5-Set-up or Clean-up Assistance-helper sets up or cleans up; patient completes activity. Dupree assists only prior to or following the activity. 4-Supervision or Touching Assistance-helper provides verbal cues and/or touching/steadying and/or contact guard assistance as patient completes activity. Assistance may be provided throughout the activity or intermittently. 3-Partial/Moderate Assistance-helper does LESS THAN HALF the effort. Dupree lifts, holds or supports trunk or limbs, but provides less than half the effort. 2-Substantial/Maximal Assistance-helper does MORE THAN HALF the effort. Dupree lifts or holds trunk or limbs and provides more than half the effort. 1-Nfwlhnnhg-corqgc does ALL the effort. Patient does none of the effort to complete the activity. Or, the assistance of 2 or more helpers is required for the patient to complete the activity. If activity was not attempted, code reason: 7-Patient Refused. 9-Not Applicable-not attempted and the patient did not perform the activity before the current illness, exacerbation or injury. 10-Not Attempted due to Environmental Limitations-(lack of equipment, weather restraints, etc.). 88-Not Attempted due to Medical Conditions or Safety Concerns. ADL PLOF Comments Pt reports living at [facility] and getting skilled therapy. He states just prior to hospitalization he was able to sit up on the EOB, but they were still using xu lift for transfers. He uses a walk in bathtub and is able to wash all parts above the waterline, assistance with washing below water line. Self Care: Needed Some Help Functional Cognition: Independent OT Current Status Subjective Pt agreeable to OT evaluation and tx. Pt declined any activity involving LUE and declined getting OOB due to pain/swelling in LUE. Mental Status/Objective Patient Orientation: Person, Place, Time, Situation Attachments: Beck Catheter, IV, Oxygen Current Glasses/Contacts: Yes Hearing Aids: No Dentures/Partials: No Hand Dominance: Right Upper Extremity ROM RUE WFL, LUE not tested due to pain and swelling Upper Extremity Coordination decreased due to swelling and pain in LUE Upper Extremity Sensation Pt reports increased sensation in LUE, he feels like his L hand pulses with every breath he takes. ADL-Treatment Eating (QC): 3 (Pt reports difficulty eating due to having pain with positioning. Based on clinical judgement, pt would be able to use utensils in RUE.) Shower/Bathe Self (QC): 7 Upper Body Dressing (QC): 7 On/Off Footwear (QC): 7 Other Treatments Pt laying in bed, agreeable to OT evaluation. Pt provided information about PLOF, and participates in UE screen of RUE. Pt declines moving LUE due to swelling and pain, which he correlates with an IV placed during EMS transport. Pt has LUE elevated on pillows throughout tx. OT encouraged pt to transfer to EOB, pt declines, OT also encouraged pt to complete sponge bath but he declines as any type of movement hurts his hand. Pt expresses difficulty eating, position changes cause increased pain in his LUE, which makes it hard to eat. OT educated pt on importance of L hand exercises in order to decrease swelling, pt attempted to complete finger flexion/extension but had very limited movement. Pt agrees to completing exercises to tolerance as he is limited by pain. Post tx, pt laying in bed, call light in reach and all needs met. Education OT Patient Education: Correct positioning, Modified ADL techniques, Progress toward Goal/Update tx plan, Purpose of tx/functional activities, Rehab process Teaching Recipient: Patient Teaching Methods: Discussion Response to Teaching: Verbalize Understanding OT [facility] Goals [facility] Goals Time Frame: Dec 09, 2020 Eating (QC): 5 Oral Hygiene (QC): 5 Toileting Hygiene (QC): 2 Shower/Bathe Self (QC): 2 Upper Body Dressing (QC): 3 Lower Body Dressing (QC): 2 On/Off Footwear (QC): 2 Additional Goals: 1-Demonstrate ADL Tasks, 2-Verbalize Understanding, 3- ImproveStrength/Aston 1=Demonstrate adherence to instructed precautions during ADL tasks. 2=Patient will verbalize/demonstrate understanding of assistive devices/modifications for ADL. 3=Patient will improve strength/tolerance for activity to enable patient to perform ADL's. OT Education/Plan Problem List/Assessment Assessment: Decreased Activ Tolerance, Decreased UE Strength, Impaired I ADL's, Impaired Self-Care Skills, Restricted Funct UE ROM Discharge Recommendations Plan/Recommendations: Continue POC Treatment Plan/Plan of Care Patient would benefit from OT for education, treatment and training to promote independence in ADL's, mobility, safety and/or upper extremity function for ADL's. Plan of Care: ADL Retraining, Functional Mobility, UE Funct Exercise/Act Treatment Duration: Dec 09, 2020 Frequency: 5 times per week Estimated Hrs Per Day: .25 hour per day Agreement: Yes Rehab Potential: Poor Time/GCodes Start Time: 11:45 Stop Time: 11:56 Total Time Billed (hr/min): 11 Billed Treatment Time 1, ALEXUS MCFADDEN OT Nov 21, 2020 13:42
[2020-11-21] MEDS ORDERED: ENALAPRILAT 1.25 MG/1 ML (VASOTEC) 1 ML VIAL IV SCH (13:45)
[2020-11-21] MEDS ORDERED: lisINopril 10 MG (PRINIVIL) TABLET PO ONE (14:00)
[2020-11-21 15:39] VITALS: BP 148/77
--- NOTE | 2020-11-21 16:05 | NUR ---
CM/SS discharge planning. Plan: Patient will return to [facility] at time of discharge. CM/SS visited with Argenis from the [facility] to give an update. CM/SS will continue to follow.
--- NOTE | 2020-11-21 16:38 | NUR ---
This RN spent several minutes on phone with patients daughter Vanessa answering questions. Vanessa requests this RN to send a photo of the patients hand. Sid gave verbal permission to give photo to daughter at this time.
[2020-11-21] MEDS ORDERED: TROUGH ORDER-PHARMACY XX NR (17:00)
[2020-11-21 19:12] VITALS: BP 154/74
[2020-11-21 23:41] VITALS: BP 157/71
[2020-11-22] MEDS: fentaNYL INJECTION 100 MCG/2 ML AMP IVP PRN ×7 (00:58→23:07)
[2020-11-22] MEDS: RT-ALBUTEROL INHALER HFA (VENTOLIN HFA) 18 GM IH SCH ×6 (01:38→21:26)
[2020-11-22] MEDS: HYDROcodone/APAP 5 MG/325 MG (LORTAB) TAB PO PRN ×3 (02:01→15:30)
[2020-11-22 04:00] VITALS: BP 176/79
[2020-11-22] MEDS: inSUlin ASPART (NovoLOG) 1 UNIT/0.01 ML (CHARGE PER UNIT) SC SCH ×4 (05:30→21:07)
[2020-11-22] MEDS: MEROPENEM 500 MG in WATER (STERILE) FOR INJECTION 10 ML IV SCH ×3 (05:55→21:28)
[2020-11-22] MEDS: PANTOPRAZOLE 40 MG (PROTONIX) TAB PO SCH ×2 (06:00→15:55)
[2020-11-22 06:02] LABS: BASOPHILS % (AUTO) 0 % (0-10); EOSINOPHILS # (AUTO) 0.2 10^3/uL (0.0-0.3); EOSINOPHILS % (AUTO) 2 % (0-10); HEMATOCRIT 26 % (40-54); HEMOGLOBIN 8.2 g/dL (13.3-17.7); LYMPHOCYTES # (AUTO) 1.6 10^3/uL (1.0-4.0); LYMPHOCYTES % (AUTO) 12 % (12-44); MEAN CORPUSCULAR HEMOGLOBIN 29 pg (25-34); MEAN CORPUSCULAR HGB CONC 32 g/dL (32-36); MEAN CORPUSCULAR VOLUME 92 fL (80-99); MEAN PLATELET VOLUME 11.2 fL (9.0-12.2); MONOCYTES # (AUTO) 1.1 10^3/uL (0.0-1.0); MONOCYTES % (AUTO) 8 % (0-12); NEUTROPHILS # (AUTO) 9.9 10^3/uL (1.8-7.8); NEUTROPHILS % (AUTO) 76 % (42-75); PLATELET COUNT 186 10^3/uL (130-400)
[2020-11-22 06:38] LABS: ALBUMIN 2.6 GM/DL (3.2-4.5); POTASSIUM 4.3 MMOL/L (3.6-5.0)
[2020-11-22 06:40] LABS: CALCIUM 7.4 MG/DL (8.5-10.1)
[2020-11-22 06:41] LABS: TOTAL PROTEIN 5.3 GM/DL (6.4-8.2)
[2020-11-22 06:43] LABS: BILIRUBIN,TOTAL 0.3 MG/DL (0.1-1.0)
[2020-11-22 06:45] LABS: CREATININE SERUM 2.19 MG/DL (0.60-1.30)
[2020-11-22] MEDS ORDERED: ACETAMINOPHEN 325 MG TABLET PO PRN (06:45)
--- NOTE | 2020-11-22 06:50 | Pulmonary Progress Note ---
Subjective Time Seen by a Provider: 06:47 Subjective/Events-last exam Pt is requiring 4 liter NC. Sepsis Event Evaluation Height, Weight, BMI Height: '" Weight: lbs. oz. kg; 26.27 BMI Method: Exam Exam Vital Signs Date Time Temp Pulse Resp B/P (MAP) Pulse Ox O2 Delivery O2 Flow Rate FiO2 11/22/20 06:18 91 Nasal Cannula 4.00 11/22/20 04:00 36.4 68 18 176/79 (111) 95 Nasal Cannula 4.00 11/22/20 01:38 94 Nasal Cannula 4.00 11/22/20 01:00 78 11/21/20 23:41 36.4 60 18 157/71 (99) 98 Nasal Cannula 4.00 11/21/20 21:11 96 Nasal Cannula 4.00 11/21/20 21:00 97 Nasal Cannula 2.00 11/21/20 19:12 36.7 81 16 154/74 (100) 96 Nasal Cannula 4.00 11/21/20 19:00 68 11/21/20 18:24 94 Nasal Cannula 5.00 11/21/20 16:01 92 Nasal Cannula 5.00 11/21/20 15:39 36.7 75 18 148/77 (100) 94 Nasal Cannula 5.00 11/21/20 12:20 61 11/21/20 12:00 35.6 65 16 172/79 (110) 96 Nasal Cannula 2.00 11/21/20 10:59 96 High Flow N/C 7.00 11/21/20 09:00 92 Nasal Cannula 5.00 11/21/20 08:00 35.6 75 20 182/81 (114) 96 Nasal Cannula 2.00 I & O 11/22/20 07:00 Intake Total 830 ml Output Total 500 ml Balance 330 ml Height & Weight Height: '" Weight: lbs. oz. kg; 26.27 BMI Method: General Appearance: No Apparent Distress, WD/WN, Chronically ill HEENT: TMs Normal, Moist Mucous Membranes Neck: Normal Inspection, Non Tender Respiratory: Lungs Clear Cardiovascular: Regular Rate, Rhythm Capillary Refill: Less Than 3 Seconds Gastrointestinal: normal bowel sounds, non tender, soft Extremity: Other (L hand hematoma large and draining serous fluid) Neurologic/Psychiatric: Alert, Oriented x3 Skin: Normal Color, Warm/Dry Lymphatic: No Adenopathy Results Lab Laboratory Tests 11/21/20 04:00 11/22/20 05:52 Assessment/Plan Assessment/Plan Acute on chronic respiratory failure -Intubated in ED 10/23 then Extubated 10/24 -NC currently at 4 liters/min COPD -Continue to monitor -Duoneb -s/p Prednisone taper Pneumonia -Persistent infiltrates has failed extensive abx therapy. -Will arrange for bronchoscopy tomorrow -Repeat PCT -Currently on Merrem -Repeat PCT and CXR WILL -Monitor DM -Insulin BRIDGETTE PÉREZ DO Nov 22, 2020 06:50
[2020-11-22] MEDS ORDERED: MONTELUKAST 10 MG (SINGULAIR) TAB PO ONE (07:00)
--- NOTE | 2020-11-22 07:16 | Pulmonary Consultation ---
History of Present Illness History of Present Illness Date Seen by Provider: Nov 22, 2020 Time Seen by Provider: 07:11 Date of Admission History of Present Illness 80yo with hx of recent VDRF, multiple recent hospitalizations and IRF presented to ED from [facility] secondary to worsening SOB. Pt has had persistent pulmonary infiltrates and has had extensive Abx coverage. CT of chest shows very small bilateral pleural effusions and extensive bilateral infiltrates. I am consulted for pulmonary management. Allergies and Home Medications Allergies Coded Allergies: No Known Drug Allergies (Unverified , 10/23/20) Home Medications Acetaminophen 650 Mg Tablet.er, 650 MG PO Q6H PRN for PAIN-MILD (1-4) OR TEMPA TURE, (Reported) Atorvastatin Calcium 40 Mg Tablet, 40 MG PO HS, (Reported) Fluticasone Propionate 9.9 Ml Alpine.susp, 1 SPRAY NSEACH BID, (Reported) Fluticasone/Salmeterol 12 Gm Hfa.aer.ad, 2 PUFF IH BID, (Reported) Folic Acid 1 Mg Tablet, 1 MG PO DAILY, (Reported) Insulin Aspart 100 Unit/1 Ml Susp, UNIT SQ ACHS, (Reported) SLIDING SCALE: 151-200=2 UNITS 201-250=4 UNITS 251-300=6 UNITS 301-350=8 UNITS 351-400=10 UNITS Ipratropium/Albuterol Sulfate 3 Ml Ampul.neb, 3 ML IH QID, (Reported) Metformin HCl 500 Mg Tablet, 500 MG PO DAILY, (Reported) Multivitamin with Minerals 1 Each Tablet, 1 EACH PO DAILY, (Reported) Pantoprazole Sodium 40 Mg Tablet.dr, 40 MG PO BID, (Reported) Saliva Stimulant Agents Comb.3 1 Each Alpine, 1 EACH MM TID, (Reported) Sennosides/Docusate Sodium 1 Each Tablet, 1 EACH PO BID, (Reported) Warfarin Sodium 1 Mg Tablet, 1 MG PO 1700, (Reported) Zinc Oxide 113 Gm Cream..g., 1 APPLIC TOP TID, (Reported) APPLY TO BUTTOCK WOUND Past Ishutiq-Tghxko-Wclooc Hx Past Med/Social Hx: Reviewed Nursing Past Med/Soc Hx, Reviewed and Corrections made Patient Social History Alcohol Use: Past History Number of Drinks Today: BB Alcohol Beverage of Choice: Beer, [place] Drug of Choice: DENIES Smoking Status: Former Smoker Type Used: Cigarettes Former Smoker, Quit: Oct 29, 1979 Recent Infectious Disease Expo: No Recent Hopitalizations: No Have you traveled recently?: No Immunizations Up To Date PED Vaccines UTD: Yes Date of Pneumonia Vaccine: Jul 27, 2020 Date of Influenza Vaccine: Jul 27, 2020 Seasonal Allergies Seasonal Allergies: No Past Medical History Surgeries: Yes Renal Respiratory: Yes (MULTIPLE INTUBATIONS) Pneumonia, Pulmonary Embolism Currently Using CPAP: No Currently Using BIPAP: No Cardiac: Yes (RBBB; CHF) Atrial Fibrillation, Chronic Edema/Swelling, High Cholesterol, Hypertension Neurological: No Genitourinary: Yes Renal Failure Gastrointestinal: Yes Gastroesophageal Reflux Musculoskeletal: No Endocrine: Yes Diabetes, Non-Insulin dep HEENT: No Loss of Vision: Denies Hearing Impairment: Hard of Hearing Cancer: No Psychosocial: Yes Anxiety, Depression Integumentary: Yes Eczema Blood Disorders: Yes (ANEMIA) Adverse Reaction/Blood Tranf: No Family Medical History Stroke, Other Conditions/Hx ADDITIONAL PMH: -ECHOCARDIOGRAM 10/24/20--EF 55-60% -EGD/FLEX SIGMOIDOSCOPY 10/03/20--GASTRITIS, POLYPECTOMY, HEMORRHOIDS NOTED Review of Systems Time Seen by Provider: 07:15 Sepsis Event Evaluation Height, Weight, BMI Height: '" Weight: lbs. oz. kg; 26.27 BMI Method: Exam Exam Vital Signs Date Time Temp Pulse Resp B/P (MAP) Pulse Ox O2 Delivery O2 Flow Rate FiO2 11/22/20 06:18 91 Nasal Cannula 4.00 11/22/20 04:00 36.4 68 18 176/79 (111) 95 Nasal Cannula 4.00 11/22/20 01:38 94 Nasal Cannula 4.00 11/22/20 01:00 78 11/21/20 23:41 36.4 60 18 157/71 (99) 98 Nasal Cannula 4.00 11/21/20 21:11 96 Nasal Cannula 4.00 11/21/20 21:00 97 Nasal Cannula 2.00 11/21/20 19:12 36.7 81 16 154/74 (100) 96 Nasal Cannula 4.00 11/21/20 19:00 68 11/21/20 18:24 94 Nasal Cannula 5.00 11/21/20 16:01 92 Nasal Cannula 5.00 11/21/20 15:39 36.7 75 18 148/77 (100) 94 Nasal Cannula 5.00 11/21/20 12:20 61 11/21/20 12:00 35.6 65 16 172/79 (110) 96 Nasal Cannula 2.00 11/21/20 10:59 96 High Flow N/C 7.00 11/21/20 09:00 92 Nasal Cannula 5.00 11/21/20 08:00 35.6 75 20 182/81 (114) 96 Nasal Cannula 2.00 I & O 11/22/20 07:00 Intake Total 830 ml Output Total 500 ml Balance 330 ml Height & Weight Height: '" Weight: lbs. oz. kg; 26.27 BMI Method: General Appearance: No Apparent Distress, WD/WN, Chronically ill HEENT: TMs Normal, Moist Mucous Membranes Neck: Normal Inspection, Non Tender Respiratory: Lungs Clear Cardiovascular: Regular Rate, Rhythm Capillary Refill: Less Than 3 Seconds Gastrointestinal: normal bowel sounds, non tender, soft Extremity: Other (L hand hematoma large and draining serous fluid) Neurologic/Psychiatric: Alert, Oriented x3 Skin: Normal Color, Warm/Dry Lymphatic: No Adenopathy Results Lab Laboratory Tests 11/21/20 04:00 11/22/20 05:52 Assessment/Plan Assessment/Plan Acute on chronic respiratory failure -Intubated in ED 10/23 then Extubated 10/24 -NC currently at 6 liters/min Pneumonia - with multiple hospitalizations -CT of chest reviewed - -Currently on Merrem -All cultures reviewed and nothing has grown out. -MRSA swab is negative -Cultures are negative -Pt is very weak. I discussed doing bronchoscopy with patient. However he will be high risk for needing intubation and ventilator if sedation is given for procedure. After discussing with patient he would rather not take risk of undergoing bronchoscopy. Will continue abx and monitoring. -Echocardiogram of Sep 28, 2020 showed LVEF 55-65%. PASP 25-30mmHg -Repeat echo severe COPD -Pt states he stopped smoking about 30yrs ago. -Continue to monitor -Duoneb -s/p Prednisone taper Anemia with right retroperitoneal bleed. -Surgery is following Edematous left hand - pt states from EMS placing IV -Surgery is managing. Anemia with right retroperitoneal bleed. -Surgery is following chronic debility WILL -Monitor HTN DM -Insulin BRIDGETTE PÉREZ DO Nov 22, 2020 07:15
[2020-11-22 08:00] VITALS: BP 171/81
[2020-11-22] MEDS: LACTULOSE SYRUP 10GM/15ML (ENULOSE) 30ML UDC PO SCH ×2 (08:30→19:39)
[2020-11-22] MEDS: FOLIC ACID 1 MG TAB PO SCH (08:30)
[2020-11-22] MEDS: SENNA W/DOCUSATE (SENOKOT S) TABLET PO SCH ×3 (08:30→19:39)
[2020-11-22] MEDS: polyethylene glycoL POWDER 17 GM (MIRALAX) PACK PO SCH ×2 (08:31→19:40)
[2020-11-22] MEDS: ZINC OXIDE 16% OINT (BUTT PASTE) 57 GM TUBE TOP SCH ×3 (08:31→19:39)
[2020-11-22] MEDS: MULTIVIT W/MINERALS TAB (THERAGRAN M) PO SCH (08:31)
[2020-11-22] MEDS: LORATADINE (CLARITIN) 10 MG TAB PO SCH (08:32)
[2020-11-22] MEDS: SALIVA STIMULANT MOUTH SPRAY (BIOTENE) 1.5 OZ MM SCH ×3 (08:40→19:37)
[2020-11-22] MEDS ORDERED: metFORMIN 500 MG (GLUCOPHAGE) TAB PO SCH (09:00)
[2020-11-22] MEDS ORDERED: LOSARTAN 50 MG (COZAAR) TAB PO SCH (09:00)
--- NOTE | 2020-11-22 09:10 | Diagnostic Imaging Report ---
INDICATION: Shortness of breath COMPARISON: 11/20/2020 FINDINGS: 5 lobe coarse largely interstitial opacities in the lungs are once again noted. There is reduction in lung volumes from prior. Enlargement of the cardiac silhouette unchanged. No pneumothorax. IMPRESSION: Given interval reduction in lung volumes no other convincing change in extensive 5 lobe coarse interstitial infiltrates and enlargement of the cardiac silhouette. Dictated by: Dictated on workstation # [id number]
--- NOTE | 2020-11-22 09:24 | Cardiology Progress Note ---
Subjective Date Seen by Provider: Nov 22, 2020 Time Seen by Provider: 08:10 Subjective/Events-last exam Patient sitting up in bed, denies any chest pain or increased dyspnea. C/o left hand/arm pain Review of Systems General: Fatigue, Malaise Objective-Cardiology Exam Last Set of Vital Signs Vital Signs 11/19/20 11/22/20 11/22/20 03:30 12:09 12:20 Temp 36.4 Pulse 71 Resp 20 B/P (MAP) 138/62 (87) Pulse Ox 93 O2 Delivery Nasal Cannula O2 Flow Rate 5.00 FiO2 28 Capillary Refill : Less Than 3 SecondsLess Than 3 Seconds I&O Intake and Output 11/22/20 00:00 Intake Total 1830 ml Output Total 450 ml Balance 1380 ml Intake Oral 560 ml IV Total 1270 ml Output Urine Total 450 ml General: Alert, Oriented X3, Cooperative HEENT: Atraumatic, PERRLA Neck: Supple, No JVD, No Thyromegaly Lungs: Other (decreased breath sounds) Heart: Regular Rate, Normal S1, Normal S2 Abdomen: Normal Bowel Sounds, Soft Extremities: Other (trace edema BLE) Skin: No Rashes, No Significant Lesion Neuro: Normal Speech Psych/Mental Status: Mental Status NL, Mood NL Results Lab Laboratory Tests 11/22/20 05:52 A/P-Cardiology Admission Diagnosis PAF HTN Pneumonia Anemia Assessment/Plan Bilateral pneumonia, managed by Dr Perez PAF, uable to tolerate OAC at this time secondary to anemia. HTN, I will increase losartan, continue to monitor. Left hand cellulitis, management per medical services. Anemia of undetermined etiology - h/o EGD showing mild gastritis - managed by Dr Perez Abnormal EKG that shows chronic RBBB Echocardiogram of Sep 28, 2020 showed LVEF 55-65%. 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 Perez Patient was seen and evaluated with Anny, examination performed, management plan was discussed, agree with the current scribed note, I made few changes to the note using Italic font Patient was having significant discomfort and swelling in his left arm, blisters and hematoma, cellulitis receiving management per medical service Blood pressure is still elevated, continue on losartan and monitor tolerance and response Anemia, monitor H&H ANNY JUAREZ Nov 22, 2020 09:24 ANIKA SHEPHERD MD Nov 22, 2020 12:30
[2020-11-22] MEDS: ADVAIR HFA 115/21 MCG INHALER 8 GM IH SCH ×2 (09:42→18:32)
--- NOTE | 2020-11-22 10:10 | Progress Note - Hospitalist ---
ARIANNA WILLETT MED STUDENT 11/22/20 1009: Subjective HPI/CC On Admission Date Seen by Provider: Nov 22, 2020 Time Seen by Provider: 08:00 CC: Recurrent PNA HPI: This is an 80yoWM known to me from multiple hospital stays including IRF after recurrent PNA required DC from there and ultimately moved to [facility] who presented to the ER with fever and dyspnea and found to have recurrent PNA on CT so placed on abx and moved to ICU due to recurrent intubations in the past. He remains a full code although his lungs remain extremely diseased and multiple conversations about end of life care have been met with resistance from both the patient and family after he had revoked his DNR status in [facility] 3 mo nths ago. Abx maintained. Subjective/Events-last exam L hand pain continues to be 6/10 maintained with hydrocodone Hematoma is improving - draining serous fluid and decreased swelling O2 91% on 4L NC but denies shortness of breath Pt did eat breakfast today after declining yesterday Does not feel up to PT/OT due to pain Will have repeat PCT and CXR today per Dr. Gamble Objective Exam Vital Signs Vital Signs Date Time Temp Pulse Resp B/P (MAP) Pulse Ox O2 Delivery O2 Flow Rate FiO2 11/22/20 09:42 94 Nasal Cannula 6.00 11/22/20 08:00 36.5 80 20 171/81 (111) 11/19/20 03:30 28 Capillary Refill : Less Than 3 SecondsLess Than 3 Seconds General Appearance: No Apparent Distress, WD/WN HEENT: PERRL/EOMI, Moist Mucous Membranes Neck: Full Range of Motion, Non Tender Respiratory: Chest Non Tender, No Accessory Muscle Use, No Respiratory Distress, Decreased Breath Sounds Cardiovascular: Regular Rate, Rhythm, No Edema, Normal Peripheral Pulses Gastrointestinal: Non Tender, Soft Extremity: Normal Capillary Refill, Non Tender, No Calf Tenderness, No Pedal Edema, Other (L hand hematoma draining serous fluid, decreased swelling from yesterday) Neurologic/Psychiatric: Alert, Oriented x3, Normal Mood/Affect Skin: Normal Color, Warm/Dry Lymphatic: No Adenopathy Results/Procedures Lab Laboratory Tests 11/22/20 05:52 Patient resulted labs reviewed. 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 Gamble Severe COPD from smoking for 30 years although he hasnt smoked for 30 years, he asked a lot of questions of Dr. Gamble and he answered as thoroughly as he could Refusing PT and OT because it hurts his hand too much WC 13,000, Hgb 8.2 Review of Systems Pulmonary: Dyspnea Musculoskeletal: hand pain Objective Exam General Appearance: No Apparent Distress, WD/WN, Chronically ill Extremity: Other (L hand hematoma draining serous fluid, decreased swelling from yesterday) Neurologic/Psychiatric: Alert, Oriented x3, No Motor/Sensory Deficits, Normal Mood/Affect Assessment/Plan Assessment and Plan Assess & Plan/Chief Complaint 11/22/20: Left hand supportive care Monitor closely Prognosis poor Supervisory-Addendum Brief Verification & Attestation Participated in pt care: history, MDM, physical Personally performed: exam, history, MDM, supervision of care Care discussed with: Medical Student Procedures: n/a Results interpretation: Verified all documentation Verification and Attestation of Medical Student E/M Service A medical student performed and documented this service in my presence. I reviewed and verified all information documented by the medical student and made modifications to such information, when appropriate. I personally performed the physical exam and medical decision making. Marissa Jones, Nov 23, 2020,05:39 RAIANNA WILLETT MED STUDENT Nov 22, 2020 10:09 MARISSA JONES DO Nov 23, 2020 05:41
--- NOTE | 2020-11-22 10:24 | Physical Therapy Progress Note ---
Therapy Progress Note Patient declined PT for the day due to left hand pain. RN is aware. PT will attempt in a.m. 1 ref ([id number]) LYDIA LORENZANA PT Nov 22, 2020 10:24
--- NOTE | 2020-11-22 10:38 | NUR ---
CM/SS follow up. CM/SS visited with the patient. He was lying in bed moaning due to the pain in his hand. The patient states that he just received pain medication. The patient was short with his answers, but stated that besides the pain in his hand he is feeling "alright". CM/SS received a call from [facility] wanting an update. CM/SS provided an update on plan for pain management, continuation of antibiotics, and PT/OT. CM/SS will follow with physician plan of care to set up discharge to facility.
[2020-11-22 12:09] VITALS: BP 138/62
--- NOTE | 2020-11-22 13:52 | NUR ---
"RD ASSESSMENT PMHx: COPD; pneumonia; afib; renal GERD; DM; PT INTERACTION: Pt was awake and pleasant during nutrition consult for MST score. Pt states current appetite is alright. Note avg PO intake 39% x3d, per chart review. Pt states following a regular diet at home, and has no issues with chewing/swallowing food. Pt states some recent issues with constipation. Note last BM on 11/19, and pt currently on bowel regimen of senna BID, and miralax BID, per chart review. Pt states no recent wt changes. Note recent 19# wt gain x3w, per chart review. Pt states current DM management is okay. Note recent HbA1c of 7.7 (10/31/2020), per chart review. Note presence of wound on L arm, per visual assessment. Given PO intake, and wt hx, pt does not meet criteria for malnutrition per ASPEN guidelines. Est. kcal needs: 7204-8461 kcal | 20-25 kcal/kg Est. Pro needs: 118-137 g Pro | 0.8-1.0 g Pro/kg PES STATEMENT: Inadequate oral intake (NI-2.1) related to loss of appetite and constipation as evidenced by pt interview, and avg PO intake 39% x3d. Inadequate protein intake (NI-5.6.1) related to increased protein needs, as evidenced by presence of wound (L arm). INTERVENTION: Continue with current diet order of CHO 45g/m 1snack diet, with modifier of Heart Healthy restriction. Add Ensure HP (vary) to meals TID. Provides 160 kcal and 16 g Pro per serving for perceived benefit to wound healing. Offered diet education on DM management, but pt declined at this time. Will continue to follow and reassess as pt needs, intake, and status change. Tammy WILLINGHAM, MS RD LD [phone] cell"
--- NOTE | 2020-11-22 14:06 | Occ Therapy Progress Note ---
Therapy Progress Note OT tx attempted, pt declined therapy due to pain in R hand. OT educated pt on purpose and benefit of OT but he still declined. OT to attempt again tomorrow. 1, refusal [id number] ALEXUS PACHECO OT Nov 22, 2020 14:06
[2020-11-22] MEDS: 1/2 NS IV SOLUTION 1,000 ML IV SCH (15:12)
[2020-11-22 16:00] VITALS: BP 132/62
--- NOTE | 2020-11-22 16:55 | NUR ---
DR NUNEZ NOTIFIED OF OUTPUT FOR SHIFT (150mL). Addendum: 11/22/20 at 1702 by NIKO BRADSHAW RN AYLA PHYSICIAN
[2020-11-22 19:38] VITALS: BP 132/62
[2020-11-22] MEDS: MONTELUKAST 10 MG (SINGULAIR) TAB PO SCH (19:40)
[2020-11-22 23:10] VITALS: BP 141/65
[2020-11-23] VITALS (7 sets, daily range): BP systolic 148–165; BP diastolic 64–79
[2020-11-23] MEDS: HYDROcodone/APAP 5 MG/325 MG (LORTAB) TAB PO PRN ×4 (00:25→18:58)
[2020-11-23] MEDS: RT-ALBUTEROL INHALER HFA (VENTOLIN HFA) 18 GM IH SCH ×5 (01:44→18:49)
[2020-11-23] MEDS: 1/2 NS IV SOLUTION 1,000 ML IV SCH (03:44)
[2020-11-23] MEDS: fentaNYL INJECTION 100 MCG/2 ML AMP IVP PRN (03:48)
[2020-11-23] MEDS: MEROPENEM 500 MG in WATER (STERILE) FOR INJECTION 10 ML IV SCH ×3 (04:59→20:20)
[2020-11-23] MEDS: inSUlin ASPART (NovoLOG) 1 UNIT/0.01 ML (CHARGE PER UNIT) SC SCH ×4 (05:03→20:55)
[2020-11-23] MEDS: PANTOPRAZOLE 40 MG (PROTONIX) TAB PO SCH ×2 (05:04→16:41)
[2020-11-23 06:10] LABS: BASOPHILS # (AUTO) 0.1 10^3/uL (0.0-0.1); BASOPHILS % (AUTO) 0 % (0-10); EOSINOPHILS # (AUTO) 0.6 10^3/uL (0.0-0.3); EOSINOPHILS % (AUTO) 5 % (0-10); HEMATOCRIT 25 % (40-54); HEMOGLOBIN 7.7 g/dL (13.3-17.7); LYMPHOCYTES # (AUTO) 1.1 10^3/uL (1.0-4.0); LYMPHOCYTES % (AUTO) 8 % (12-44); MEAN CORPUSCULAR HEMOGLOBIN 29 pg (25-34); MEAN CORPUSCULAR HGB CONC 31 g/dL (32-36); MEAN CORPUSCULAR VOLUME 93 fL (80-99); MEAN PLATELET VOLUME 10.7 fL (9.0-12.2); MONOCYTES % (AUTO) 7 % (0-12); NEUTROPHILS # (AUTO) 10.4 10^3/uL (1.8-7.8); NEUTROPHILS % (AUTO) 79 % (42-75); PLATELET COUNT 192 10^3/uL (130-400); WHITE BLOOD COUNT 13.3 10^3/uL (4.3-11.0)
[2020-11-23 06:21] LABS: ALBUMIN 2.4 GM/DL (3.2-4.5); POTASSIUM 4.4 MMOL/L (3.6-5.0)
[2020-11-23 06:22] LABS: CALCIUM 7.4 MG/DL (8.5-10.1)
[2020-11-23 06:23] LABS: TOTAL PROTEIN 4.9 GM/DL (6.4-8.2)
[2020-11-23 06:25] LABS: BILIRUBIN,TOTAL 0.3 MG/DL (0.1-1.0)
[2020-11-23 06:27] LABS: CREATININE SERUM 2.5 MG/DL (0.60-1.30)
[2020-11-23] MEDS: ADVAIR HFA 115/21 MCG INHALER 8 GM IH SCH ×2 (07:22→18:49)
--- NOTE | 2020-11-23 08:09 | Pulmonary Progress Note ---
Subjective Time Seen by a Provider: 08:08 Subjective/Events-last exam pt is requiring more oxygen. Sepsis Event Evaluation Height, Weight, BMI Height: '" Weight: lbs. oz. kg; 26.27 BMI Method: Exam Exam Vital Signs Date Time Temp Pulse Resp B/P (MAP) Pulse Ox O2 Delivery O2 Flow Rate FiO2 11/23/20 07:22 92 Nasal Cannula 6.00 11/23/20 07:22 92 Nasal Cannula 6.00 11/23/20 03:53 36.4 77 20 148/65 (92) 95 Nasal Cannula 5.00 11/23/20 01:44 95 Nasal Cannula 5.00 11/23/20 01:00 69 11/22/20 23:10 36.4 82 20 141/65 (90) 91 Nasal Cannula 5.00 11/22/20 21:27 84 Nasal Cannula 5.00 11/22/20 20:53 Nasal Cannula 4.00 11/22/20 19:38 36.3 80 20 132/62 (85) 93 Nasal Cannula 5.00 11/22/20 19:00 80 11/22/20 18:35 89 Nasal Cannula 4.00 11/22/20 18:32 89 Nasal Cannula 4.00 11/22/20 16:00 36.3 80 20 132/62 (85) 93 Nasal Cannula 5.00 11/22/20 13:46 96 Nasal Cannula 5.00 11/22/20 12:20 71 11/22/20 12:09 36.4 77 20 138/62 (87) 93 Nasal Cannula 5.00 11/22/20 09:42 94 Nasal Cannula 6.00 11/22/20 08:43 Nasal Cannula 3.00 I & O 11/23/20 07:00 Intake Total 2770 ml Output Total 450 ml Balance 2320 ml Height & Weight Height: '" Weight: lbs. oz. kg; 26.27 BMI Method: General Appearance: WD/WN, Anxious, Chronically ill, Mild Distress HEENT: TMs Normal, Moist Mucous Membranes Neck: Normal Inspection, Non Tender Respiratory: Lungs Clear Cardiovascular: Regular Rate, Rhythm Capillary Refill: Less Than 3 Seconds Gastrointestinal: normal bowel sounds, non tender, soft Extremity: Other (L hand hematoma large and draining serous fluid) Neurologic/Psychiatric: Alert, Oriented x3 Skin: Normal Color, Warm/Dry Lymphatic: No Adenopathy Results Lab Laboratory Tests 11/22/20 05:52 11/23/20 05:55 Assessment/Plan Assessment/Plan Acute on chronic respiratory failure - pt is requiring more oxygen -Intubated in ED 10/23 then Extubated 10/24 -NC currently at 6 liters/min Pneumonia - with multiple hospitalizations -CT of chest reviewed - shows emp -Currently on Merrem -MRSA swab is negative -Cultures are negative -Pt is very weak. on 11/22 I discussed doing bronchoscopy with patient. However he will be high risk for needing intubation and ventilator if sedation. After discussing with patient he would rather not take risk of undergoing bronchoscopy. Will continue abx and monitoring. -Echocardiogram of Sep 28, 2020 showed LVEF 55-65%. PASP 25-30mmHg severe COPD -Pt states he stopped smoking about 30yrs ago. -Continue to monitor -Duoneb -s/p Prednisone taper Anemia with right retroperitoneal bleed. -Surgery is following Edematous left hand - pt states from EMS placing IV -Surgery is managing. WILL - worsening -Monitor -Change ARB to Lopressor -Change 1/2NS to LR at 100 HTN -Add PRN hydralazine -Change ARB to Lopressor DM -Insulin BRIDGETTE PÉREZ DO Nov 23, 2020 08:09
[2020-11-23] MEDS ORDERED: hydrALAZINE (APESOLINE) 20 MG/ML VIAL IV PRN (08:15)
[2020-11-23] MEDS: LACTATED RINGERS 1,000 ML IV SCH ×2 (08:48→18:59)
[2020-11-23] MEDS: SALIVA STIMULANT MOUTH SPRAY (BIOTENE) 1.5 OZ MM SCH ×3 (08:48→20:20)
[2020-11-23] MEDS: LACTULOSE SYRUP 10GM/15ML (ENULOSE) 30ML UDC PO SCH ×2 (08:49→20:21)
[2020-11-23] MEDS: LORATADINE (CLARITIN) 10 MG TAB PO SCH (08:49)
[2020-11-23] MEDS: polyethylene glycoL POWDER 17 GM (MIRALAX) PACK PO SCH ×2 (08:50→20:21)
[2020-11-23] MEDS: meTOprolol TARTRATE 25 MG (LOPRESSOR) TABLET PO SCH ×2 (08:50→20:20)
[2020-11-23] MEDS: ZINC OXIDE 16% OINT (BUTT PASTE) 57 GM TUBE TOP SCH ×3 (08:50→20:21)
[2020-11-23] MEDS: MULTIVIT W/MINERALS TAB (THERAGRAN M) PO SCH (08:50)
[2020-11-23] MEDS: FOLIC ACID 1 MG TAB PO SCH (08:50)
[2020-11-23] MEDS: SENNA W/DOCUSATE (SENOKOT S) TABLET PO SCH ×2 (08:50→20:20)
--- NOTE | 2020-11-23 08:53 | Cardiology Progress Note ---
Subjective Date Seen by Provider: Nov 23, 2020 Time Seen by Provider: 08:48 Subjective/Events-last exam Patient asleep in bed, awakens to answer questions. Appears to be more short of breath. Denies any chest pain. Review of Systems General: No Chills, No Night Sweats; Fatigue; No Malaise, No Appetite, No Other HEENT: No Head Aches, No Visual Changes, No Eye Pain, No Ear Pain, No Dysphasia, No Sinus Congestion, No Post Nasal Drip, No Sore Throat, No Other Pulmonary: No Dyspnea, No Cough, No Pleuritic Chest Pain, No Other Cardiovascular: Edema; No: Chest Pain, Palpitations, Orthopnea, Paroxysmal Noc. Dyspnea, Lt Headedness, Other Objective-Cardiology Exam Last Set of Vital Signs Vital Signs 11/23/20 11/23/20 11/23/20 08:00 09:14 15:29 Temp 36.0 Pulse 71 Resp 18 B/P (MAP) 165/74 (104) Pulse Ox 92 O2 Delivery Nasal Cannula O2 Flow Rate 4.00 FiO2 36 Capillary Refill : Less Than 3 SecondsLess Than 3 Seconds I&O Intake and Output 11/22/20 23:59 Intake Total 1760 ml Output Total 450 ml Balance 1310 ml Intake Oral 740 ml IV Total 1020 ml Output Urine Total 450 ml General: Alert, Oriented X3, Cooperative HEENT: Atraumatic, PERRLA Neck: Supple, No JVD, No Thyromegaly Lungs: Other (decreased breath sounds) Heart: Regular Rate, Normal S1, Normal S2 Abdomen: Normal Bowel Sounds, Soft Extremities: Other (trace edema BLE) Skin: No Rashes, No Significant Lesion Neuro: Normal Speech Psych/Mental Status: Mental Status NL, Mood NL Results Lab Laboratory Tests 11/23/20 05:55 A/P-Cardiology Admission Diagnosis PAF HTN Pneumonia Anemia Assessment/Plan Bilateral pneumonia, managed by Dr Perez PAF, uable to tolerate OAC at this time secondary to anemia. HTN, I will d/c losartan, start lopressor, continue to monitor. Left hand cellulitis, management per medical services. Anemia of undetermined etiology - h/o EGD showing mild gastritis - managed by Dr Perez Acute renal failure, d/c losartan, conitnue to monitor renal function Abnormal EKG that shows chronic RBBB Echocardiogram of Sep 28, 2020 showed LVEF 55-65%. 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 Perez Patient was seen and evaluated with Anny, examination performed, management plan was discussed, agree with the current scribed note, I made few changes to the note using Italic font Patient was seen at bedside laying down, still having significant swelling with bruises and blisters on his left hand and arm Reporting increasing in discomfort and pain, reported that he was feeling better earlier this morning Cardiac status at this time, conservative management is recommended. Continue to monitor blood pressure and lipids, monitor renal function ANNY JUAREZ Nov 23, 2020 8:53 am ANIKA SHEPHERD MD Nov 23, 2020 4:06 pm
--- NOTE | 2020-11-23 10:38 | Physical Therapy Daily Note ---
PT Daily Note-Current Subjective Patient in bed pre tx, agrees to PT but states he doesn't want to sit on the side of the bed or get out of bed, agrees to exercises in bed, has unrated pain in left hand. Appearance Patient in bed post tx with nurse call, phone, tray, all needs met. Mental Status Patient Orientation: Person, Place, Situation Attachments: Oxygen, Beck Catheter Transfers SCALE: Activities may be completed with or without assistive devices. 6-Pknwetdkwf-exkbhhs completes the activity by him/herself with no assistance from a helper. 5-Set-up or Clean-up Assistance-helper sets up or cleans up; patient completes activity. [place] assists only prior to or following the activity. 4-Supervision or Touching Assistance-helper provides verbal cues and/or touching/steadying and/or contact guard assistance as patient completes activity. Assistance may be provided throughout the activity or intermittently. 3-Partial/Moderate Assistance-helper does LESS THAN HALF the effort. [place] lifts, holds or supports trunk or limbs, but provides less than half the effort. 2-Substantial/Maximal Assistance-helper does MORE THAN HALF the effort. [place] lifts or holds trunk or limbs and provides more than half the effort. 4-Uismhcgzw-kpyabk does ALL the effort. Patient does none of the effort to complete the activity. Or, the assistance of 2 or more helpers is required for the patient to complete the activity. If activity was not attempted, code reason: 7-Patient Refused. 9-Not Applicable-not attempted and the patient did not perform the activity before the current illness, exacerbation or injury. 10-Not Attempted due to Environmental Limitations-(lack of equipment, weather restraints, etc.). 88-Not Attempted due to Medical Conditions or Safety Concerns. Exercises Supine Ex: Ankle pumps, Quad Set, Glut sets, Heel Slides (AAROM), Short Arc Quads (AAROM), Straight leg raise (AAROM), Hip abd/add (AAROM) Supine Reps: 20 Treatments LE exercise Assessment Current Status: Poor Progress Patient refuses to get out of bed or sit due to left hand pain. PT Prison Goals Prison Goals PT Resource Forester Goals Time Frame: Dec 03, 2020 Roll Left & Right (QC): 2 Sit to Lying (QC): 2 Lying-Sitting on Side/Bed(QC): 2 Sit to Stand (QC): 1 (sit to stand lift) PT Plan Problem List Problem List: Activity Tolerance, Functional Strength, Safety, Balance, Gait, Transfer, Bed Mobility, ROM Treatment/Plan Treatment Plan: Continue Plan of Care Treatment Plan: Bed Mobility, Education, Functional Activity [place], Functional Strength, Safety, Therapeutic Exercise, Transfers Treatment Duration: Dec 03, 2020 Frequency: 5 times per week Estimated Hrs Per Day: .25 hour per day Safety Risks/Education Patient Education: Correct Positioning, Safety Issues Teaching Recipient: Patient Teaching Methods: Demonstration, Discussion Response to Teaching: Reinforcement Needed Time/GCodes Time In: 1008 Time Out: 1020 Total Billed Treatment Time: 12 Total Billed Treatment 1 visit EX 12' CLAYTON GARCIA PT Nov 23, 2020 10:38
--- NOTE | 2020-11-23 10:58 | Progress Note - Hospitalist ---
ARIANNA WILLETT MED STUDENT 11/23/20 1057: Subjective HPI/CC On Admission Date Seen by Provider: Nov 23, 2020 Time Seen by Provider: 08:30 CC: Recurrent PNA HPI: This is an 80yoWM known to me from multiple hospital stays including IRF after recurrent PNA required DC from there and ultimately moved to [facility] who presented to the ER with fever and dyspnea and found to have recurrent PNA on CT so placed on abx and moved to ICU due to recurrent intubations in the past. He remains a full code although his lungs remain extremely diseased and multiple conversations about end of life care have been met with resistance from both the patient and family after he had revoked his DNR status in [facility] 3 mo nths ago. Abx maintained. 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 Denies any shortness of breath - O2 increased to 6L today O2 at 92% Declined PT/OT due to pain Repeat CXR "extensive 5 lobe coarse interstitial infiltrates with decreased lung volumes compared to last" Objective Exam Vital Signs Vital Signs Date Time Temp Pulse Resp B/P (MAP) Pulse Ox O2 Delivery O2 Flow Rate FiO2 11/23/20 09:14 92 Nasal Cannula 4.00 11/23/20 08:00 36.0 84 18 165/74 (104) 11/19/20 03:30 28 Capillary Refill : Less Than 3 SecondsLess Than 3 Seconds General Appearance: No Apparent Distress, WD/WN, Chronically ill HEENT: Moist Mucous Membranes Neck: Full Range of Motion, Non Tender Respiratory: Chest Non Tender, Crackles, Decreased Breath Sounds Cardiovascular: Regular Rate, Rhythm, No JVD Gastrointestinal: Non Tender, Soft Extremity: Normal Capillary Refill, No Calf Tenderness, No Pedal Edema, Other (L hand hematoma draining serous fluid with multiple new blisters forming ) Neurologic/Psychiatric: Alert, Oriented x3 Skin: Normal Color, Warm/Dry Lymphatic: No Adenopathy Results/Procedures Lab Laboratory Tests 11/23/20 05:55 Patient resulted labs reviewed. Assessment/Plan Assessment and Plan Assess & Plan/Chief Complaint Assessment: Sepsis Respiratory failure acute on chronic PNA HAP HTN AF Severe myopathy Old retroperitoneal bleed on CT scan consulted Dr Osuna Plan: Monitor lung function since VDRF in past multiple times Monitor creat INR 11/20/20: Move to 4th Abx Left hand hematoma pain management PT OT 10/21/21 Continue pain mgt L hand Consult Kido regarding L hand hematoma PT/OT Abx continued 11/22/20 Control L hand pain with Hydrocodone PT/OT Repeat PCT and CXR to monitor PNA Abx continued 11/23/20 Surgery consulted for L hand Attempt PT/OT Abx continued Monitor O2 sat Added Metoprolol and Hydralazine for HTN, changed IVF 10/29 NS to LR MARISSA JONES DO 11/24/20 0518: Supervisory-Addendum Brief Verification & Attestation Participated in pt care: history, MDM, physical Personally performed: exam, history, MDM, supervision of care Care discussed with: Medical Student Procedures: n/a Results interpretation: Verified all documentation Verification and Attestation of Medical Student E/M Service A medical student performed and documented this service in my presence. I reviewed and verified all information documented by the medical student and made modifications to such information, when appropriate. I personally performed the physical exam and medical decision making. Marissa Jones, Nov 24, 2020,05:18 ARIANNA WILLETT MED STUDENT Nov 23, 2020 10:57 MARISSA JONES DO Nov 24, 2020 05:18
--- NOTE | 2020-11-23 11:49 | Occ Therapy Progress Note ---
Therapy Progress Note Pt adamantly declined OT services today as his R hand hurts too bad. OT educated pt on purpose and benefits of OT but pt would rather OT attempt again tomorrow. He indicates that his R hand hurts with any movement. OT will attempt again tomorrow. 1, Refusal [id number] ALEXUS PACHECO OT Nov 23, 2020 11:49
--- NOTE | 2020-11-23 13:16 | NUR ---
QUINTON/SARAI follow up. QUINTON/SARAI received a call from Vanessa the patient's daughter. Vanessa voiced her grievances to this sw. She reports that she has not been getting regular updates from staff. QUINTON/SARAI did hear that she spoke with manufacturing maintenance manager Gracia yesterday 11/22 for update and discussion of medications. Vanessa reports that her brother Dane heard from the doctor on Saturday night. Vanessa stated that Dane is working on "going up the chain" for their concerns. . Vanessa also shared concerns about the antibiotics and steroids. She states that every time he comes off the steroid he has to return to the hospital. She would like to speak with someone about him staying on prednisone. A concern that Vanessa voiced, was the possibility of infection in the hand. She reports that she is worried we are not treating it with anything other than warm water. Vanessa states that Jessica is also supposed to reach out to her today but that she has not heard from her. QUINTON/SARAI attempted to contact Jessica to inform her of the conversation. No answer but voice mail was left with call back number. Vanessa voiced that she was interested in getting the patient a different physician. She stated the patient had indicated a want for this. QUINTON/SARAI informed her that at this time the patient is competent to make his own decisions and if he wishes to have a different physician it could be provided. She verbalized understanding. QUINTON/SARAI visited with the patient. He reports that he is doing okay today. He verbalized still having pain in his hand but he is not moaning or grimacing like he was at last visit. QUINTON/SARAI visited with the patient regarding his primary physician. The patient reports that at this time he is wanting to keep Dr. Perez as his physician but will continue to think about it. CM/SS provided medical update to Argenis at [facility]. QUINTON/SARAI will continue to follow.
--- NOTE | 2020-11-23 17:44 | Discharge Summary ---
Discharge Summary Hospital Course Problems/Dx: (1) Acute on chronic respiratory failure with hypoxia Status: Acute (2) Elevated troponin Status: Acute (3) Chronic atrial fibrillation Status: Acute (4) Renal insufficiency Status: Acute (5) CHF (congestive heart failure) Status: Acute (6) COPD (chronic obstructive pulmonary disease) (7) Pneumonia Status: Acute (8) Traumatic hematoma of hand Hospital Course Date of Admission: Nov 18, 2020 at 22:20 Admission Diagnosis : Family Physician/Provider: Bebo Reid MD Date of Discharge: 11/23/20 Discharge Diagnosis: Recurrent PNA, Severe COPD lung disease, former smoker, left hand hematoma, PANCHO, AF, bleeding on OAC Hospital Course: Hospital course: Pt had a lengthy hospital course for six days after recurrent and multiple hospital stays due to recurrent pneumonia and acute on-chronic hypoxic respiratory failure. CT scan once again showed extensive lung disease from emphysema and COPD, Dr. Gamble was consulted, Pt was ultimately transferred from the ICU down to the fourth floor, he did suffer a left hand hematoma from an IV that had been inserted and he was placed on Lovenox from the ER that had caused the hematoma. Supportive care was recommended Dr. Osuna managed that, no evidence of any type of compartment syndrome and that was monitored closely. Conservative management was recommended. He continued to have a decline in renal function creatinine went from 1.9 to 2.1 to 2.5, I had no nephrology specialty coverage, Dr. Gamble evaluated the CT scan, maintained on Meropenem, Pt was discontinued on Vanc and overall continued to have a decline in function and after multiple family visits over the phone it was decided that they were displeased with the care provided at [facility] and due to the recurrent pneumonia and advanced lung disease they felt like they needed a second opinion so that was arranged with [facility] who graciously accepted the Pt. Pt was stable on four liters of oxygen with Beck catheter and maintained on gentle IV fluids and Pt was moved to that hospital for higher level of care with nephrology and pulmonology. Labs and Pending Lab Test: Laboratory Tests 11/22/20 20:02: Glucometer 125H 11/23/20 05:02: Glucometer 82 11/23/20 05:55: White Blood Count 13.3H, Red Blood Count 2.65L, Hemoglobin 7.7L, Hematocrit 25L, Mean Corpuscular Volume 93, Mean Corpuscular Hemoglobin 29, Mean Corpuscular Hemoglobin Concent 31L, Red Cell Distribution Width 15.9H, Platelet Count 192, Mean Platelet Volume 10.7, Immature Granulocyte % (Auto) 1, Neutrophils (%) (Auto) 79H, Lymphocytes (%) (Auto) 8L, Monocytes (%) (Auto) 7, Eosinophils (%) (Auto) 5, Basophils (%) (Auto) 0, Neutrophils # (Auto) 10.4H, Lymphocytes # (Auto) 1.1, Monocytes # (Auto) 1.0, Eosinophils # (Auto) 0.6H, Basophils # (Auto) 0.1, Immature Granulocyte # (Auto) 0.1, Sodium Level 135, Potassium Level 4.4, Chloride Level 103, Carbon Dioxide Level 24, Anion Gap 8, Blood Urea Nitrogen 44H, Creatinine 2.50H, Estimat Glomerular Filtration Rate 25, BUN/Creatinine Ratio 18, Glucose Level 84, Calcium Level 7.4L, Corrected Calcium 8.7, Total Bilirubin 0.3, Aspartate Amino Transf (AST/SGOT) 27, Alanine A minotransferase (ALT/SGPT) 15, Alkaline Phosphatase 63, Total Protein 4.9L, Albumin 2.4L 11/23/20 15:56: Glucometer 82 Microbiology 11/19/20 MRSA Screen - Final, Complete MRSA not isolated 11/18/20 Blood Culture - Preliminary, Resulted No growth Home Meds Active Reported Z-Bum (Zinc Oxide) 113 Gm Cream..g. 1 Applic TOP TID APPLY TO BUTTOCK WOUND Novolog (Insulin Aspart) 100 Unit/1 Ml Susp Unit SQ ACHS SLIDING SCALE: 151-200=2 UNITS 201-250=4 UNITS 251-300=6 UNITS 301-350=8 UNITS 351-400=10 UNITS Metformin HCl 500 Mg Tablet 500 Mg PO DAILY Senna S Tablet (Sennosides/Docusate Sodium) 1 Each Tablet 1 Each PO BID Biotene Moisturizing Mouth (Saliva Stimulant Agents Comb.3) 1 Each [place] 1 Each MM TID Flonase Allergy Relief (Fluticasone Propionate) 9.9 Ml [place].susp 1 [place] NSEACH BID Iprat-Albut 0.5-3(2.5) mg/3 ml (Ipratropium/Albuterol Sulfate) 3 Ml Ampul.neb 3 Ml IH QID Pantoprazole Sodium 40 Mg Tablet.dr 40 Mg PO BID Folic Acid 1 Mg Tablet 1 Mg PO DAILY Advair Hfa 115-21 Mcg Inhaler (Fluticasone/Salmeterol) 12 Gm Hfa.aer.ad 2 Puff IH BID Atorvastatin Calcium 40 Mg Tablet 40 Mg PO HS Tylenol Arthritis (Acetaminophen) 650 Mg Tablet.er 650 Mg PO Q6H PRN Warfarin Sodium 1 Mg Tablet 1 Mg PO 1700 Multivitamins with Minerals (Multivitamin with Minerals) 1 Each Tablet 1 Each PO DAILY Assessment/Pt Instructions [facility] Discharge Planning: <30 minutes discharge planning Discharge Physical Examination Vital Signs Vital Signs Date Time Temp Pulse Resp B/P (MAP) Pulse Ox O2 Delivery O2 Flow Rate FiO2 11/23/20 16:00 36.6 73 18 165/79 (107) 90 Nasal Cannula 4.00 11/23/20 15:29 36 General Appearance: No Apparent Distress, WD/WN, Chronically ill Respiratory: No Accessory Muscle Use, No Respiratory Distress, Decreased Breath Sounds Cardiovascular: Irregularly Irregular Neurologic/Psychiatric: Alert, Oriented x3, No Motor/Sensory Deficits, Normal Mood/Affect Allergies: Coded Allergies: No Known Drug Allergies (Unverified , 10/23/20) Discharge Summary Date of Admission Nov 18, 2020 at 22:20 Date of Discharge Discharge Date: Nov 23, 2020 Admission Diagnosis Assessment: Sepsis Respiratory failure acute on chronic PNA HAP HTN AF Severe myopathy Old retroperitoneal bleed on CT scan consulted Dr Osuna Plan: Monitor lung function since VDRF in past multiple times Monitor creat INR Discharge Diagnosis 11/22/20: Left hand supportive care Monitor closely Prognosis poor (1) Acute on chronic respiratory failure with hypoxia Status: Acute (2) Elevated troponin Status: Acute (3) Chronic atrial fibrillation Status: Acute (4) Renal insufficiency Status: Acute (5) CHF (congestive heart failure) Status: Acute (6) COPD (chronic obstructive pulmonary disease) (7) Pneumonia Status: Acute SAEID JONES DO Nov 23, 2020 17:44
--- NOTE | 2020-11-23 18:37 | NUR ---
CM/SS update: CM/SS received notification that the patient was accepted to [facility] (nurse report number: [phone]). A referral was sent per the request of the family after they spoke with Risk Management. CM/SS visited with the patient. He is unsure if he would like to transfer at this time. The patient's daughter Vanessa contacted this sw and stated they do not want him transferred for Nephrology only. CM/SS attempted to explain that other physicians may be consulted on his case. CM/SS informed Gracia grader tender of the circumstances. A conference call was held with the patient, Dane Mendez Elizabeth RN, Gracia Nurse, and this worker. During the call Dr. Gamble was added to help answer medical questions for the family. Vanessa and Dane reported thanks and stated they are happy with the detailed answers. Awaiting determination if the patient will be transferred. Phone call lasted 1 hour and 25 minutes. Suzan provided the Nurse with the contact information for [facility] and [facility] if patient decides to transfer. The primary care nurse will notify physician. CM/SS will continue to follow.
[2020-11-23] MEDS: MONTELUKAST 10 MG (SINGULAIR) TAB PO SCH (20:20)
--- NOTE | 2020-11-23 21:00 | NUR ---
@1930 PT AGREED TO TRANSFERRING TO [facility]. DAUGHTER, ALLA, UPDATED OF PT'S DECISION. PT PROVIDED TRANSFER PAPERS. @1999 REPORT GIVEN TO MU RAZO AT [facility]. @ 2014 DR. PÉREZ, DR. JORGE, AND DR. JONES ALL NOTIFIED OF TRANSFER. @2016 EMS NOTIFIED OF TRANSFER. @2100 EMS ARRIVED TO TAKE PT. PT AOX4 WITH STABLE VITAL SIGNS. ALL BELONGINGS AND TRANSFER PAPERS SENT WITH PATIENT/EMS AT THIS TIME.
--- NOTE | 2020-11-24 11:08 | Physician Query Clarification ---
PQ-Conflicting Diagnosis Admission/Discharge Admission Date: Nov 18, 2020 at 22:20 Discharge Date: Nov 23, 2020 at 21:00 Dr. Perez, The medical record reflects the following clinical scenario: History/Risk Factors: pneumonia, acute on chronic respiratory failure w/hypoxia, HTN, CKD, DM Clinical Findings: T 37.6, P 109, R 28, Lactic acid 2.55 Treatment: IV Vancomycin, IV Meropenem Question: Do you agree with the impression of the Sepsis per Dr. Perez admission assessment on H&P. Please document a response in Progress Note or Discharge Summary. 1. Yes 2. No 3. Other, with explanation of clinical findings 4. Clinically undetermined, no explanation for clinical findings. PHYSICIAN RESPONSE Do you agree w/Consulting Dx?: Yes Please remember a lack of response to the above will prompt a phone page by CDI/Coding staff. In responding to this query, please exercise your independent professional judgment. The purpose of this communication is to more accurately reflect the complexity of your patients condition. The fact that a question is asked does not imply that any particular answer is desired or expected. Thank you for your timely response to this clarification. Requestors name: [email or web address] THIS PHYSICIAN QUERY FORM IS A PERMANENT PART OF THE MEDICAL RECORD RACHEL JAMISON Nov 24, 2020 11:08 SAEID PEREZ DO Nov 24, 2020 20:41
--- NOTE | 2020-11-24 11:17 | Physician Query Clarification ---
PQ-Further Specificity Admission/Discharge Admission Date: Nov 18, 2020 at 22:20 Discharge Date: Nov 23, 2020 at 21:00 Dr. Perez, The medical record reflects the following clinical scenario: History/Risk Factors: pneumonia, acute on chronic respiratory failure w/hypoxia, HTN w/CHF and CKD stg 3, DM Clinical Findings: troponin 0.052 Treatment: IV Vancomycin, IV Meropenem Question: Can you further specify elevated troponin per the clinical indicators above? Please document a response in the Progress Notes or Discharge Summary. 1. Type 2 AL 2. Elevated troponin only no type 2 AL 3. Other, with explanation of the clinical findings. 4. Clinically undetermined, no explanation for the clinical findings. PHYSICIAN RESPONSE Can you specify per above: 1 Please remember a lack of response to the above will prompt a phone page by CDI/Coding staff. In responding to this query, please exercise your independent professional judgment. The purpose of this communication is to more accurately reflect the complexity of your patients condition. The fact that a question is asked does not imply that any particular answer is desired or expected. Thank you for your timely response to this clarification. Requestors name: [email or web address] THIS PHYSICIAN QUERY FORM IS A PERMANENT PART OF THE MEDICAL RECORD RACHEL JAMISON Nov 24, 2020 11:17 SAEID PEREZ DO Nov 24, 2020 20:41
--- NOTE | 2020-11-24 11:20 | Physician Query Clarification ---
PQ-CHF Specificity Admission Date: Nov 18, 2020 at 22:20 Discharge Date: Nov 23, 2020 at 21:00 Dr. Perez, The medical record reflects the following clinical scenario: History/Risk Factors: pneumonia, acute on chronic respiratory failure w/hypoxia, HTN w/CHF and CKD stg 3, DM Clinical Findings: 2D echo 11/23/20 EF 55-65% Treatment: IVP 80 mg Lasix Question: Can you further specify the acuity &/or type of CHF per the clinical indicators above? Please document a response in the Progress Notes or Discharge Summary. 1. Acuity: Acute, Chronic or Acute on Chronic 2. Type: Systolic, Diastolic or Systolic & Diastolic 3. Unspecified: CHF cannot be further specified regarding type or acuity 4. Other, with explanation of clinical findings 5. Clinically undetermined, no explanation for clinical findings PHYSICIAN RESPONSE Acuity: Clinically undetermined Type: Clinically undetermined Please remember a lack of response to the above will prompt a phone page by CDI/Coding staff. In responding to this query, please exercise your independent professional judgment. The purpose of this communication is to more accurately reflect the complexity of your patients condition. The fact that a question is asked does not imply that any particular answer is desired or expected. Thank you for your timely response to this clarification. Requestors name: [email or web address] THIS PHYSICIAN QUERY FORM IS A PERMANENT PART OF THE MEDICAL RECORD RACHEL JAMISON Nov 24, 2020 11:20 SAEID PEREZ DO Nov 24, 2020 20:42
== END 2020-11-23 21:00 | disposition short-term general hospital (02) | DRG 871 ==
LOC: EDUNIT# 21:15 → ER 21:17 → ICU 22:20 → 4TH 11-20 12:04
PROVIDERS: ADMIT Internal Medicine; ATTEND Internal Medicine
DX: A41.9 Sepsis, unspecified organism (principal); J18.9 Pneumonia, unspecified organism; J96.21 Acute and chronic respiratory failure with hypoxia; I21.A1 Myocardial infarction type 2; I13.0 Hypertensive heart and chronic kidney disease with heart failure and stage 1 through stage 4 chronic kidney disease, or unspecified chronic kidney disease; E87.2 Acidosis; L03.114 Cellulitis of left upper limb; D68.318 Other hemorrhagic disorder due to intrinsic circulating anticoagulants, antibodies, or inhibitors; E11.22 Type 2 diabetes mellitus with diabetic chronic kidney disease; N18.30 Chronic kidney disease, stage 3 unspecified; I50.9 Heart failure, unspecified; Z79.84 Long term (current) use of oral hypoglycemic drugs; J43.9 Emphysema, unspecified; I48.0 Paroxysmal atrial fibrillation; E78.00 Pure hypercholesterolemia, unspecified; K21.9 Gastro-esophageal reflux disease without esophagitis; F41.9 Anxiety disorder, unspecified; F32.9 Major depressive disorder, single episode, unspecified; D64.9 Anemia, unspecified; G72.9 Myopathy, unspecified; I45.10 Unspecified right bundle-branch block; Z87.891 Personal history of nicotine dependence; Z87.01 Personal history of pneumonia (recurrent); Z86.711 Personal history of pulmonary embolism; Z79.01 Long term (current) use of anticoagulants; Z79.52 Long term (current) use of systemic steroids; Z20.822 Contact with and (suspected) exposure to COVID-19
CPT/HCPCS: 36415; 71045; 71275; 74178; 80048; 80053; 81000; 82805; 82962; 83605; 83615; 83735; 83880; 84100; 84145; 84484; 85007; 85025; 85027; 85379; 85610; 85652; 85730; 86141; 87040; 87081; 87635; 87804; 93005; 93041; 93306; 94640; 94664; 94760; 96361; 96365; 96372; 96375; 99291

== ENCOUNTER 2022-08-24 12:41 | Outpatient (CLI) | payer MEDICARE ==
[~2022-08-24] VITALS: Ht 185.4 cm; Wt 82.0 kg
[~2022-08-24 12:41] MED LIST changes: -AMIO200T6 PO; +AMIO200T65 PO; +FLUT9.9S NSEACH; +INSU100V16 SQ; -NYST15CR TP; +NYST15CR35 TP; -ONDA2VIA2 IV; +ONDA2VIA6C IV; +SENN-145 PO; +[UNRECOGNIZED DRUG - CODE] TOP
[2022-08-28] MEDS ORDERED: PRED5TAB PO (17:08)
== END 2022-08-29 18:24 | disposition home or self-care (01) ==
LOC: PREOP 12:41
PROVIDERS: ATTEND Specialist
DX: Z01.818 Encounter for other preprocedural examination (principal)

== ENCOUNTER 2022-08-31 07:51 | Day surgery (SDC) | payer MEDICARE ==
[~2022-08-31] VITALS: Ht 185.4 cm; Wt 82.0 kg
[~2022-08-31 07:51] MED LIST changes: +PRED5TAB PO
[2022-08-31] MEDS ORDERED: MIDAZOLAM 2 MG/2 ML (VERSED) VIAL ONE (08:02)
[2022-08-31] MEDS ORDERED: POVIDONE (BETADINE) OPHTH SOLN 5% 30 ML OP ONE (08:15)
[2022-08-31] MEDS ORDERED: MOXIFLOXACIN OPHTH SOLN 5 MG/ML 0.3 ML SYRINGE OP ONE (08:15)
[2022-08-31] MEDS ORDERED: TETRACAINE 0.5% OPHTH SOLN 4 ML BTL (SINGLE DOSE ONLY) OU PRN (08:15)
[2022-08-31] MEDS ORDERED: PHENYLEPHRINE 10% OPHTH (NEO-SYN) 5 ML BTL OU PRN (08:15)
[2022-08-31] MEDS ORDERED: acetaZOLAMIDE ER 500 MG CAP (DIAMOX SEQUELS) PO ONE (08:15)
[2022-08-31] MEDS ORDERED: TIMOLOL MALEATE 0.5% 5 ML (TIMOPTIC) BTL OU PRN (08:15)
[2022-08-31] MEDS ORDERED: TROPICAMIDE 1% OPH SOLN (MYDRIACYL) 15 ML BTL OU PRN (08:15)
[2022-08-31] MEDS: PHENYLEPHRINE 10% OPHTH (NEO-SYN) 5 ML BTL OU SCH ×3 (08:18→08:30)
[2022-08-31] MEDS: TETRACAINE 0.5% OPHTH SOLN 4 ML BTL (SINGLE DOSE ONLY) OU PRN ×3 (08:18→08:29)
[2022-08-31] MEDS: TROPICAMIDE 1% OPH SOLN (MYDRIACYL) 15 ML BTL OP SCH ×3 (08:19→08:30)
[2022-08-31 08:25] VITALS: BP 157/76
--- NOTE | 2022-08-31 08:45 | Ophthalmologist Pre-Op Note ---
Pre-Operative Progress Note H&P Reviewed The H&P was reviewed, patient examined and no changes noted. Date H&P Reviewed: Aug 31, 2022 Time H&P Reviewed: 08:45 Pre-Op Dx Cataract, Right Eye TIM SALDIVAR MD Aug 31, 2022 08:45
--- NOTE | 2022-08-31 09:09 | Ophthalmology Operative Report ---
Cataract removal/placement IOL PREOPERATIVE DIAGNOSIS: Cataract Right Eye POSTOPERATIVE DIAGNOSIS: Cataract Right Eye PROCEDURE: Cataract removal and placement of posterior chamber implant, right eye SURGEON: Reji Saldivar ANESTHESIA: Topical with sedation COMPLICATIONS: None ESTIMATED BLOOD LOSS: Minimal DESCRIPTION OF PROCEDURE: After proper informed consent was obtained, the patient, a 82 male, was taken to the Operating Room and the right eye was anesthetized with tetracaine. The right eye was then prepped and draped in the usual manner. A wire lid speculum was placed. A paracentesis was made at the left hand position. Preservative free lidocaine was injected into the anterior chamber followed by viscoelastic. A clear corneal incision was made in the temporal position. A capsulorrhexis was preformed and the central nuclear and cortical material were removed. The posterior capsule was polished and Valerio 24.0 [id number] IOL was placed into the capsular bag. The residual viscoelastic was aspirated and balanced saline solution was injected into the anterior chamber. Moxifloxacin was injected into the anterior chamber. The wound was checked and found to be water tight. The patient tolerated the procedure well without complications. REJI SALDIVAR MD Aug 31, 2022 09:09
[2022-08-31 09:12] VITALS: BP 146/70
--- NOTE | 2022-08-31 12:37 | Anesthesia-General Post-Op ---
MAC Patient Condition Mental Status/LOC: Same as Preop Cardiovascular: Satisfactory Nausea/Vomiting: Absent Respiratory: Satisfactory Pain: Controlled Complications: Absent Post Op Complications Complications None Follow Up Care/Instructions Patient Instructions None needed. Anesthesiology Discharge Order Discharge Order Patient is doing well, no complaints, stable vital signs, no apparent adverse anesthesia problems. No complications reported per nursing. CHEYANNE JIMENEZ CRNA Aug 31, 2022 12:37
== END 2022-08-31 09:13 | disposition home or self-care (01) ==
LOC: SDC 07:51
PROVIDERS: ATTEND Specialist
DX: H25.9 Unspecified age-related cataract (principal); Z87.891 Personal history of nicotine dependence
CPT/HCPCS: 66984; V2632

== ENCOUNTER 2022-09-10 05:37 | Outpatient (CLI) | payer MEDICARE | END 2022-09-10 15:16 | disposition home or self-care (01) | LOC: PREOP 05:37 | PROVIDERS: ATTEND Specialist | DX: Z01.818 Encounter for other preprocedural examination (principal) ==

== ENCOUNTER 2022-09-14 08:37 | Day surgery (SDC) | payer MEDICARE ==
[~2022-09-14] VITALS: Ht 185.4 cm; Wt 82.0 kg
[2022-09-14] MEDS ORDERED: MOXIFLOXACIN OPHTH SOLN 5 MG/ML 0.3 ML SYRINGE OP ONE (08:45)
[2022-09-14] MEDS ORDERED: POVIDONE (BETADINE) OPHTH SOLN 5% 30 ML OP ONE (08:45)
[2022-09-14] MEDS ORDERED: TIMOLOL MALEATE 0.5% 5 ML (TIMOPTIC) BTL OU PRN (08:45)
[2022-09-14] MEDS: TETRACAINE 0.5% OPHTH SOLN 4 ML BTL (SINGLE DOSE ONLY) OU PRN ×4 (08:52→09:10)
[2022-09-14] MEDS: PHENYLEPHRINE 10% OPHTH (NEO-SYN) 5 ML BTL OU SCH ×3 (08:59→09:10)
[2022-09-14] MEDS: TROPICAMIDE 1% OPH SOLN (MYDRIACYL) 15 ML BTL OP SCH ×3 (08:59→09:10)
[2022-09-14 09:06] VITALS: BP 132/76
[2022-09-14] MEDS ORDERED: MIDAZOLAM 2 MG/2 ML (VERSED) VIAL ONE ×2 (09:16→09:26)
--- NOTE | 2022-09-14 09:31 | Ophthalmologist Pre-Op Note ---
Pre-Operative Progress Note H&P Reviewed The H&P was reviewed, patient examined and no changes noted. Date H&P Reviewed: Sep 14, 2022 Time H&P Reviewed: 09:31 Pre-Op Dx Cataract, Left Eye TIM SALDIVAR MD Sep 14, 2022 09:31
--- NOTE | 2022-09-14 09:46 | Ophthalmology Operative Report ---
Cataract removal/placement IOL PREOPERATIVE DIAGNOSIS: Cataract Left Eye POSTOPERATIVE DIAGNOSIS: Cataract Left Eye PROCEDURE: Cataract removal and placement of posterior chamber implant, left eye SURGEON: Reji Saldivar ANESTHESIA: Topical with sedation COMPLICATIONS: None ESTIMATED BLOOD LOSS: Minimal DESCRIPTION OF PROCEDURE: After proper informed consent was obtained, the patient, a 82 male, was taken to the Operating Room and the left eye was anesthetized with tetracaine. The left eye was then prepped and draped in the usual manner. A wire lid speculum was placed. A paracentesis was made at the left hand position. Preservative free lidocaine was injected into the anterior chamber followed by viscoelastic. A clear corneal incision was made in the temporal position. A capsulorrhexis was preformed and the central nuclear and cortical material were removed. The posterior capsule was polished and an Valerio 24.0 AU00T0 was placed into the capsular bag. The residual viscoelastic was aspirated and balanced saline solution was injected into the anterior chamber. Moxifloxacin was injected into the anterior chamber. The wound was checked and found to be water tight. The patient tolerated the procedure well without complications. REJI SALDIVAR MD Sep 14, 2022 09:46
[2022-09-14 09:59] VITALS: BP 151/74
[2022-09-14] MEDS ORDERED: acetaZOLAMIDE ER 500 MG CAP (DIAMOX SEQUELS) PO ONE (10:00)
--- NOTE | 2022-09-14 14:07 | Anesthesia-General Post-Op ---
MAC Patient Condition Mental Status/LOC: Same as Preop Cardiovascular: Satisfactory Nausea/Vomiting: Absent Respiratory: Satisfactory Pain: Controlled Complications: Absent Post Op Complications Complications None Follow Up Care/Instructions Patient Instructions None needed. Anesthesiology Discharge Order Discharge Order Patient is doing well, no complaints, stable vital signs, no apparent adverse anesthesia problems. No complications reported per nursing. TAM MURGUIA CRNA Sep 14, 2022 14:07
== END 2022-09-14 10:01 | disposition home or self-care (01) ==
LOC: SDC 08:37
PROVIDERS: ATTEND Specialist
DX: H25.9 Unspecified age-related cataract (principal); Z87.891 Personal history of nicotine dependence
CPT/HCPCS: 66984; V2632

== ENCOUNTER → 2023-01-01 | Outpatient (CLI) | payer MEDICARE ==
[~2023-01-01] MED LIST changes: -UBID400C6 PO; +UBID400C8 PO
--- NOTE | 2023-01-01 10:29 | Diagnostic Imaging Report ---
INDICATION: History of abdominal aortic TECHNIQUE: Grayscale sonographic images of the abdominal aorta. CORRELATION STUDY: None FINDINGS: Examination compromised by overlying bowel gas. Abdominal Aorta Proximal: 2.2 x 2.2 cm Mid: 2.1 x 2 cm Distal: 2.1 x 2 cm Common Iliac Arteries Right EVIE: 1 x 1.2 cm Left EVIE: 0.9 x 1.3 cm IMPRESSION: 1. Negative for abdominal aortic aneurysm. Dictated by: Dictated on workstation # [id number]
== END ==
LOC: RAD 07:44
PROVIDERS: ATTEND Family Medicine
DX: Z86.79 Personal history of other diseases of the circulatory system (principal)
CPT/HCPCS: 76775

== ENCOUNTER 2023-02-26 05:48 | Outpatient (CLI) | payer MEDICARE ==
[~2023-02-26] VITALS: Ht 185.5 cm; Wt 90.9 kg
[2023-02-26] MEDS ORDERED: AMLO-250 PO (15:04)
[2023-02-26] MEDS ORDERED: FERR-84 PO (15:04)
[2023-02-26] MEDS ORDERED: LORA10TA7 PO (15:04)
== END 2023-02-26 15:01 | disposition home or self-care (01) ==
LOC: PREOP 05:48
PROVIDERS: ATTEND Specialist
DX: Z01.818 Encounter for other preprocedural examination (principal)

== ENCOUNTER 2023-03-01 07:47 | Day surgery (SDC) | payer MEDICARE ==
[~2023-03-01] VITALS: Ht 185.5 cm; Wt 90.9 kg
[~2023-03-01 07:47] MED LIST changes: +AMLO-250 PO; +FERR-84 PO; +LORA10TA7 PO
[2023-03-01 08:23] VITALS: BP 130/73
[2023-03-01] MEDS ORDERED: PHENYLEPHRINE 10% OPHTH (NEO-SYN) 5 ML BTL OU PRN (08:30)
[2023-03-01] MEDS ORDERED: TROPICAMIDE 1% OPH SOLN (MYDRIACYL) 15 ML BTL OU PRN (08:30)
[2023-03-01] MEDS ORDERED: TETRACAINE 0.5% OPHTH SOLN 4 ML BTL (SINGLE DOSE ONLY) OU PRN (08:30)
--- NOTE | 2023-03-01 09:05 | Ophthalmologist Pre-Op Note ---
Pre-Operative Progress Note H&P Reviewed The H&P was reviewed, patient examined and no changes noted. Date H&P Reviewed: March 01, 2023 Time H&P Reviewed: 08:40 Pre-Op Dx Secondary Cataract, Right Eye TIM SALDIVAR MD March 01, 2023 09:05
--- NOTE | 2023-03-01 09:06 | Ophthalmology Operative Report ---
YAG Capsulotomy PREOPERATIVE DIAGNOSIS: Secondary Cataract Left Eye POSTOPERATIVE DIAGNOSIS: Secondary Cataract Left Eye PROCEDURE: YAG Capsulotomy, left eye SURGEON: Reji Saldivar ANESTHESIA: Topical anesthesia COMPLICATIONS: None ESTIMATED BLOOD LOSS: Minimal DESCRIPTION OF PROCEDURE: After proper informed consent was obtained, the patient's, a 82 male left eye received one drop of Tropicamide and one drop of Tetracaine. The patient was then placed at the YAG laser and using a power of [4.0 ] millijoules and [21 ] bursts were used to fashion a central capsulotomy. The patient tolerated the procedure well without complications. REJI SALDIVAR MD March 01, 2023 09:06
== END 2023-03-01 08:49 | disposition home or self-care (01) ==
LOC: SDC 07:47
PROVIDERS: ATTEND Specialist
DX: H26.40 Unspecified secondary cataract (principal); Z87.891 Personal history of nicotine dependence